=== PATIENT | female | born 1960 | race Caucasian/White ===

== ENCOUNTER → 2017-10-31 11:50 | Outpatient (CLI) | payer OTHER, SELFPAY ==
--- NOTE | 2017-10-31 12:03 | RAD_ITS ---
STUDY: X-RAY - ABDOMEN/PELVIS REASON FOR EXAM: Female, 57 years old. Diarrhea. TECHNIQUE: AP supine and upright views of the abdomen and pelvis. COMPARISON: None. FINDINGS: Normal visualized lung bases. There is an unremarkable bowel gas pattern. There is no demonstrated free abdominal air. There is no obvious organomegaly, mass or dilated bowel. No pathologic calcifications are visualized. There are calcified phleboliths in the pelvis. Normal visualized osseous structures. RAD/Abd Inc Decub and/or Erect IMPRESSION: No radiographic evidence of acute intra-abdominal disease. Electronically Signed: Nusrat Oconnor MD at 8:27 EDT , Service support ,
[2017-10-31 14:26] LABS: Absolute Lymphocyte Count 2.03 X10^3/ul (0.83-4.51); Absolute Neutrophil Count 2.9 X10^3/uL (2.0-7.7); Basophil# 0.02 X10^3/uL; Basophil% 0.4 % (0-1); Eosinophil# 0.07 X10^3/uL; Eosinophils% 1.3 % (0-5); Hematocrit 41.4 % (37-47); Hemoglobin 13.6 g/dl (12.0-15.0); Lymphocyte # 2.03 X10^3/ul (4.0); Lymphocyte % 37.5 % (19-41); Mean Corp Hgb Conc 32.9 g/gl (32-36); Mean Corpuscular Hgb 28.9 pg (27.0-32.0); Mean Corpuscular Volume 88.1 fL (81-99); Mean Platelet Vol. 10.9 fl (6.2-12.0); Monocyte# 0.39 X10^3/uL; Monocyte% 7.2 % (0-10); Neutrophil # 2.88 X10^3/uL (2.7-7.7); Neutrophil % 53.2 % (47-70); POSITIVE COUNT NO; POSITIVE DIFFERENTIAL NO; POSITIVE MORPHOLOGY NO; Platelet Count 258 K/mm3 (150-450); RBC Distribution Width CV 13.8 % (11.6-14.6); RBC Distribution Width SD 44.4 fl (35.1-43.9); White Blood Count 5.4 K/mm3 (4.4-11.0)
[2017-10-31 14:39] LABS: Vitamin D,25 Hydroxy 22.3 ng/mL (29.95-100.01)
[2017-10-31 14:49] LABS: ALB/GLOB Ratio 1.2 RATIO (0.9-2.4); AST(SGOT) 16 U/L (15-37); Alanine Aminotransfer ALT/SGPT 19 U/L (13-56); Albumin, Serum 3.9 g/dL (3.2-5.0); Alkaline Phosphatase 79 U/L (45-117); Anion Gap 6 (5-15); BUN 13 mg/dL (7-18); Calcium,Total 8.5 mg/dL (8.5-10.1); Chloride 109 mmol/L (98-107); Creatinine, Serum 0.81 mg/dL (0.55-1.02); EST Glomerular Filtration Rate 77 mL/min (>60); Est Glom Filt Rate - Afr Amer 93 mL/min (>60); Globulin 3.3 g/dL (2.2-4.2); Glucose 106 mg/dL (74-106); Magnesium 2.3 mg/dL (1.6-2.6); Potassium 3.8 mmol/L (3.5-5.1); Protein, Total 7.2 g/dL (6.4-8.2); Sodium Level 141 mmol/L (136-145); Thyroid Stim Hormone (TSH) 1.09 uIU/mL (0.358-3.74)
== END ==
LOC: MFPLAB 11:52 → MTRAD 11:55
PROVIDERS: Family Provider Family Medicine; PCP Family Medicine; Visit Provider Family Medicine
DX: R19.7 Diarrhea, unspecified (principal); E55.9 Vitamin D deficiency, unspecified
CPT/HCPCS: 36415; 74019; 80053; 82306; 83735; 84443; 85025

== ENCOUNTER → 2017-12-12 11:59 | Outpatient (CLI) | payer OTHER, SELFPAY ==
--- NOTE | 2017-12-12 12:01 | BI_ITS ---
MAMMOGRAPHY - BILATERAL SCREENING REASON FOR EXAM: Female, 57 years old. Routine annual screening examination. PERTINENT HISTORY: Non-contributory. TECHNIQUE: Digital bilateral breast manfred (3D mammographic acquisition) in the CC and MLO projections. 2-D mediolateral oblique (MLO) and craniocaudad (CC) views of both breasts were obtained. CAD: Full Field Digital Mammography with Computer Added Detection was performed. COMPARISON: Comparison is made with prior examination dated July 19, 2015. FINDINGS: Breast Composition: There are scattered areas of fibroglandular density. There are no dominant masses or suspicious calcifications. Stable bilateral benign-appearing axillary lymph nodes. No other significant abnormalities are identified. There has been no significant change since the prior study. BI/SCREENING MAMM (CAD), BILAT IMPRESSION: Stable bilateral screening mammogram. Yearly follow-up mammogram recommended. (A) ASSESSMENT CATEGORY: BIRADS Category 2: Benign. A letter regarding these results will be sent to the patient by the facility within 30 days. Approximately 10% of breast cancers are not detected by mammography. A normal mammogram should not delay biopsy of a clinically suspicious abnormality. [id number] Electronically Signed: Rios Winchester MD at 13:44 EDT Tel [phone], Service support ,
== END ==
PROVIDERS: Family Provider Family Medicine; PCP Family Medicine; Visit Provider Family Medicine
DX: Z12.31 Encounter for screening mammogram for malignant neoplasm of breast (principal)
CPT/HCPCS: 77063; 77067

== ENCOUNTER → 2018-03-02 09:31 | Outpatient (CLI) | payer OTHER, SELFPAY ==
[2018-03-02 12:39] LABS: Absolute Lymphocyte Count 1.89 X10^3/ul (0.83-4.51); Absolute Neutrophil Count 2.5 X10^3/uL (2.0-7.7); Basophil# 0.04 X10^3/uL; Basophil% 0.8 % (0-1); Eosinophil# 0.09 X10^3/uL; Eosinophils% 1.8 % (0-5); Hematocrit 43.6 % (37-47); Hemoglobin 14.1 g/dl (12.0-15.0); Lymphocyte # 1.89 X10^3/ul (4.0); Lymphocyte % 38.8 % (19-41); Mean Corp Hgb Conc 32.3 g/gl (32-36); Mean Corpuscular Hgb 28.7 pg (27.0-32.0); Mean Corpuscular Volume 88.8 fL (81-99); Mean Platelet Vol. 10.7 fl (6.2-12.0); Monocyte# 0.31 X10^3/uL; Monocyte% 6.4 % (0-10); Neutrophil # 2.53 X10^3/uL (2.7-7.7); Platelet Count 242 K/mm3 (150-450); RBC Distribution Width CV 13.8 % (11.6-14.6); RBC Distribution Width SD 44.8 fl (35.1-43.9); Red Blood Count 4.91 M/mm3 (4.2-5.4); White Blood Count 4.9 K/mm3 (4.4-11.0)
[2018-03-02 12:41] LABS: POSITIVE COUNT NO; POSITIVE DIFFERENTIAL NO; POSITIVE MORPHOLOGY NO
[2018-03-02 12:57] LABS: ALB/GLOB Ratio 1.1 RATIO (0.9-2.4); AST(SGOT) 18 U/L (15-37); Alanine Aminotransfer ALT/SGPT 27 U/L (13-56); Albumin, Serum 3.7 g/dL (3.2-5.0); Alkaline Phosphatase 85 U/L (45-117); Anion Gap 12 (5-15); BUN 16 mg/dL (7-18); BUN/Creat Ratio 18.6 RATIO (10-20); Calcium,Total 8.7 mg/dL (8.5-10.1); Chloride 106 mmol/L (98-107); Creatinine, Serum 0.86 mg/dL (0.55-1.02); EST Glomerular Filtration Rate 72 mL/min (>60); Est Glom Filt Rate - Afr Amer 87 mL/min (>60); Globulin 3.4 g/dL (2.2-4.2); Glucose 94 mg/dL (74-106); Potassium 3.8 mmol/L (3.5-5.1); Protein, Total 7.1 g/dL (6.4-8.2); Sodium Level 144 mmol/L (136-145)
[2018-03-02 13:05] LABS: Vitamin D,25 Hydroxy 30.2 ng/mL (29.95-100.01)
== END ==
PROVIDERS: Family Provider Family Medicine; PCP Family Medicine; Visit Provider Family Medicine
DX: E55.9 Vitamin D deficiency, unspecified (principal); K58.9 Irritable bowel syndrome, unspecified
CPT/HCPCS: 36415; 80053; 82306; 85025

== ENCOUNTER 2018-10-19 05:26 | Day surgery (SDC) | payer OTHER, SELFPAY ==
[2018-10-06 13:58] VITALS: BMI 29.8
--- NOTE | 2018-10-12 10:33 | EKG12_ITS ---
Test Reason : PRE-OP Blood Pressure : / mmHG Vent. Rate : 084 BPM Atrial Rate : 084 BPM P-R Int : 148 ms QRS Dur : 090 ms QT Int : 376 ms P-R-T Axes : 054 004 034 degrees QTc Int : 444 ms Normal sinus rhythm Nonspecific ST and T wave abnormality Abnormal ECG Confirmed by CARMEN BLACKWELL, AURELIO ([id number]), editor managing newspaper MILAN GARCIA ([id number]) on 10/13/2018 1:05:23 PM Referred By: Alexander Nam Confirmed By:AURELIO MORALES MD
[2018-10-12 11:12] LABS: Hematocrit 43.8 % (37-47); Hemoglobin 13.8 g/dl (12.0-15.0); Mean Corp Hgb Conc 31.5 g/gl (32-36); Mean Corpuscular Hgb 28.7 pg (27.0-32.0); Mean Corpuscular Volume 91.1 fL (81-99); Mean Platelet Vol. 10.6 fl (6.2-12.0); Platelet Count 258 K/mm3 (150-450); RBC Distribution Width CV 13.7 % (11.6-14.6); RBC Distribution Width SD 45.2 fl (35.1-43.9); Red Blood Count 4.81 M/mm3 (4.2-5.4); White Blood Count 5.9 K/mm3 (4.4-11.0)
[2018-10-12 11:13] LABS: Scan Indicated on CBC? Y/N NO
[2018-10-12 11:34] LABS: Anion Gap 6 (5-15); BUN 14 mg/dL (7-18); BUN/Creat Ratio 16.8 RATIO (10-20); Calcium,Total 8.9 mg/dL (8.5-10.1); Chloride 107 mmol/L (98-107); Creatinine, Serum 0.83 mg/dL (0.55-1.02); EST Glomerular Filtration Rate 75 mL/min (>60); Est Glom Filt Rate - Afr Amer 91 mL/min (>60); Glucose 96 mg/dL (74-106); Potassium 4.1 mmol/L (3.5-5.1); Sodium Level 142 mmol/L (136-145)
[2018-10-19] VITALS (10 sets, daily range): BP systolic 96–110; BP diastolic 52–71; PULSE 70–90; RESP 16–18; TEMP 36.2–37.2; O2SAT 94–97; BMI 29.4
--- NOTE | 2018-10-19 | HEM_PTH ---
PATIENT: CHANEL PRASAD LOC: [facility] [place] U#:[id number] AGE/SX: 58/F ROOM: RE10/19/[address]: Dr. Alexander Nam MD : [id number] BED: DIS: 10/19/2018 SPEC #: [id number] RECD: 10/19/18 10:13 STATUS: HEBER JUAN #: [id number] INA: 10/19/18 00:[address]: Alexander Nam DEPT: SURGICAL PATHOLOGY RECD BY: Dakota Molina ENTERED: 10/19/18 12:55 SP TYPE: HEMORRHOID OTHR DR: Dr. Marito Zavala MD Tissues: HEMORRHOIDS Procedures: Surgery Specimen Level III HEADER OPERATION: Exam under anesthesia, hemorrhoidectomy PRE-OP DIAGNOSIS: Internal bleeding hemorrhoids TISSUE SUBMITTED: Hemorrhoids MICROSCOPIC DIAGNOSIS Hemorrhoids: Pieces of anorectal mucosa with dilated and congested blood vessels consistent with hemorrhoid. See comment. SJ:shayy 10/20/18 COMMENT The specimen predominantly consists of squamous mucosa. MICROSCOPIC DESCRIPTION Slides are reviewed. GROSS DESCRIPTION Received in fixative is one container labeled with the patient's name and designated hemorrhoids. The specimen consists of two irregular fragments of samuel mucosal tissue measuring 2.5 x 1.5 x 1 cm and 2.5 x 1 x 1 cm. Sections reveal congested and hemorrhagic cut surfaces. Mold Design Engineer sections are submitted in two cassettes. / BRADFORD:shayy 10/19/18 TC:5 CPT: 41318
--- NOTE | 2018-10-19 06:57 | PCM.DC.REC ---
Discharge Diet: No Restrictions Discharge Activity: Return to Normal Activity, May Not Drive - while you are taking narcotic pain medications. Do not drive, work with heavy equipment or sign legal documents for 24 hours after your surgery. Additional Activity Instructions:: Do not drive or work with heavy equipment or sign legal documents for 24 hours. Be aware that pain medications may cause nausea. You should typically eat light foods as you take your pain medications. Additional Dressing/Incision Instructions:: Mineral oil 30 cc or 1 ounce daily in juice or food. Daily fiber supplementation 1 tablespoon in with juice or food. You may utilize a sitz bath in a warm tub of soapy water for comfort for 20-30 minutes or for post defecation hygiene Allergies/Adverse Reactions: Allergies azithromycin [From Zithromax Z-Del] Adverse Reaction (Verified 10/12/18 09:22) Vomiting codeine Adverse Reaction (Verified 10/12/18 09:22) Vomiting Sulfa (Sulfonamide Antibiotics) Adverse Reaction (Verified 10/12/18 09:22) Vomiting Medications to take at Discharge cholecalciferol (vitamin D3) 2,000 unit capsule 2,000 unit PO DAILY 10/06/18 levothyroxine 50 mcg capsule 50 mcg PO DAILY 10/06/18 magnesium oxide 400 mg capsule 400 mg PO BID cap 10/06/18 valacyclovir 500 mg tablet 500 mg PO .prn tab 10/06/18 Famotidine [Pepcid] 20 mg PO DAILY 10/12/18 sod phos mono-sod phos dibasic 1.5 gram (1.102-0.398) tablet 4 tab PO Q15M #32 tab 10/13/18 Hydrocodone Bitart/Apap 5-325 [[place] 5MG-325MG] 1 tablet PO Q4H PRN PRN 3 Days #12 tablet 10/19/18 The following prescriptions were given: Hydrocodone Bitart/Apap 5-325 [[place] 5MG-325MG] 1 tablet PO Q4H PRN PRN 3 Days #12 tablet PRN Reason: Pain Primary Care Physician: Marito Zavala MD [Primary Care Provider] - Test Results: Test results from this visit will be discussed in further detail at your follow-up appointment, if applicable. Please Follow Up With: Alexander Nam MD - [phone] When: Plan to have a follow up approximately 3 weeks after surgery.
[2018-10-19] MEDS: Lubricating Jelly 60 GM Tube 30 GM TOPICAL (07:30)
[2018-10-19] MEDS: Dibucaine 30 GM Tube 1 APPLIC (07:41)
[2018-10-19] MEDS: Bupivacaine Mpf 0.5% 30 ML VIAL (08:00)
[2018-10-19] MEDS: BUPIVACAINE LIPOSOME/PF 20 ML VIAL OPERA.SITE (08:00)
--- NOTE | 2018-10-19 08:03 | PCM.OPRPT ---
Problem List (1) Internal bleeding hemorrhoids Status: Acute Report of Operation Date of Procedure: 10/19/18 Pre-Operative Diagnosis: Bleeding internal and external hemorrhoids Post-Operative Diagnosis: Same Surgery/Procedure Performed:: Complex hemorrhoidectomy Description of Surgical Findings:: Timeout and informed consent was obtained. 58-year-old female was taken to the operating room. She was subsequently placed prone on the table. Cefotetan 2 g were given intravenously preoperatively. The perianal area was treated with Skin-Prep and then tape was used to help provide exposure. Was prepped with Betadine. 0.5% Marcaine mixed with Exparel was utilized using a local anesthetic. Throughout the procedure all 50 cc was used. The patient had a large complex of internal and external hemorrhoids right 2 o'clock position with a lesser degree at right 4 o'clock position and reasonable amount of tissue at the left 9 o'clock position. Apical sutures of 2-0 chromic were placed. Harmonic scalpel was used to perform resection of external component in internal component. Mucosa was approximated with a running locking 2-0 chromic. The left lateral side and apical suture of [id number] 0 chromic was used for further achieve hemostasis. Great care was taken to preserve the sphincter mechanism. At the completion of procedure is felt that the great bulk of the hemorrhoidal disease had been resected. Vaseline gauze saturated with dibucaine ointment was placed per rectum. Cover dry gauze applied. Sponge and instrument and needle counts were reported the surgeon be correct. Blood loss minimal. She tolerated the procedure well and was taken to the recovery area in satisfactory condition without apparent complication. Specimen is hemorrhoids. Drains none. Blood loss minimal. Alexander Nam M.D., F.A.C.S. Type of Anesthesia:: Local MAC Anesthesiologist: Maryellen Roach
[2018-10-19] MEDS: HYDROcodone Bitartrate/Apap 5/325 Tablet PO (09:35)
== END 2018-10-19 11:01 | disposition home or self-care (01) ==
LOC: SDC 05:26 → AC 05:27
PROVIDERS: Family Provider Family Medicine; PCP Family Medicine; Referring Provider Surgery; Visit Provider Surgery
PROC: (CPT 46260; principal; 2018-10-19 07:00)
DX: K64.8 Other hemorrhoids (principal); K64.4 Residual hemorrhoidal skin tags; R94.31 Abnormal electrocardiogram [ECG] [EKG]; D68.51 Activated protein C resistance; Z87.891 Personal history of nicotine dependence; Z79.899 Other long term (current) drug therapy
CPT/HCPCS: 00902; 46260; 36415; 80048; 85027; 88304; 93005; J7120; J2405

== ENCOUNTER 2018-11-29 20:44 | Emergency (ER) | payer OTHER, SELFPAY ==
[2018-11-09 12:59] VITALS: BMI 29.4
[2018-11-29 20:45] VITALS: BP 109/98; PULSE 133; RESP 94; TEMP 36.6; O2SAT 95; BMI 26.4
--- NOTE | 2018-11-29 21:24 | EKG12_ITS ---
Test Reason : TACHYCARDIA Blood Pressure : / mmHG Vent. Rate : 109 BPM Atrial Rate : 109 BPM P-R Int : 130 ms QRS Dur : 088 ms QT Int : 340 ms P-R-T Axes : 058 006 027 degrees QTc Int : 457 ms Sinus tachycardia Inferior infarct , age undetermined , cannot be excluded Abnormal ECG Confirmed by DAWN BLACKWELL, VEGA ([id number]), assignment desk editor HORACE BERGER ([id number]) on 12/03/2018 10:01:53 AM Referred By: Ramón Linares Confirmed By:VEGA SEYMOUR MD
[2018-11-29] MEDS: 0.9% Normal Saline 1,000 ML 999 ML IV (21:30)
--- NOTE | 2018-11-29 21:36 | ED.DCSUM_ITS ---
- ER Visit Summary Date of Service: 11/29/18 Chief Complaint: Abdominal pain, diarrhea History of Present Illness: The patient is a 58 F he has been having abdominal pain and diarrhea for the past month. She had a hemorrhoidectomy done on October 19. She was placed on antibiotics after her surgery. Ever since that she has had diarrhea every time she eats. She states that she has lost 20 pounds since then. She feels fatigued. She saw Dr. Nam for this surgery. She states that she has talked with his office and they told her to increase her fluid hydration at home. She has a history of MS but no other medical problems. Her pain is crampy and in the lower part of her abdomen. Physical Examination: Vital signs reviewed. HEENT exam unremarkable. Heart is tachycardic and regular rhythm without murmurs. Lungs are clear to auscultation. Abdomen is soft and nontender. Extremities reveal no edema. Skin exam normal. Neurologic exam normal. Test Results: White blood cell count normal. Potassium 3.4, glucose 122. Alkaline phosphatase 128. Lipase normal. Stool studies are pending Emergency Department Course and Treatment: The patient was given normal saline and feels improved. She did give us a stool sample in the emergency department. We will hold off on any C. difficile treatment until this comes back. At this point I do not feel she requires admission as she has no acute kidney injury. S he may have been a little bit dehydrated but I feel she can tolerate oral meds at home. I will give her Bentyl and Lomotil for home. She will call for her results tomorrow afternoon Treatment Plan: [] Disposition: Discharge Impression: Diarrhea This note was generated with [employer] dictation software. It may contain incorrect words, spelling, and punctuation that were not noted in review of the chart prior to signing ED Disposition - Plan for ED Patient: Referrals: Marito Zavala MD [Primary Care Provider] -
[2018-11-29 21:38] LABS: Absolute Lymphocyte Count 1.87 X10^3/ul (0.83-4.51); Absolute Neutrophil Count 5.9 X10^3/uL (2.0-7.7); Basophil# 0.05 X10^3/uL; Basophil% 0.5 % (0-1); Eosinophil# 0.38 X10^3/uL; Hematocrit 36.8 % (37-47); Hemoglobin 12.2 g/dl (12.0-15.0); Lymphocyte # 1.87 X10^3/ul (4.0); Lymphocyte % 19.8 % (19-41); Mean Corp Hgb Conc 33.2 g/gl (32-36); Mean Corpuscular Hgb 28.1 pg (27.0-32.0); Mean Corpuscular Volume 84.8 fL (81-99); Mean Platelet Vol. 9.3 fl (6.2-12.0); Monocyte% 12.7 % (0-10); Neutrophil # 5.88 X10^3/uL (2.7-7.7); Neutrophil % 62.5 % (47-70); Platelet Count 352 K/mm3 (150-450); RBC Distribution Width SD 40.6 fl (35.1-43.9); Red Blood Count 4.34 M/mm3 (4.2-5.4); White Blood Count 9.4 K/mm3 (4.4-11.0)
[2018-11-29 21:41] LABS: POSITIVE COUNT NO; POSITIVE DIFFERENTIAL NO; POSITIVE MORPHOLOGY NO
[2018-11-29 21:53] LABS: ALB/GLOB Ratio 0.7 RATIO (0.9-2.4); AST(SGOT) 12 U/L (15-37); Alanine Aminotransfer ALT/SGPT 17 U/L (13-56); Albumin, Serum 2.9 g/dL (3.2-5.0); Alkaline Phosphatase 128 U/L (45-117); Anion Gap 9 (5-15); BUN 17 mg/dL (7-18); BUN/Creat Ratio 24.4 RATIO (10-20); Calcium,Total 8.7 mg/dL (8.5-10.1); Chloride 103 mmol/L (98-107); EST Glomerular Filtration Rate 92 mL/min (>60); Est Glom Filt Rate - Afr Amer 111 mL/min (>60); Estimated Creatinine Clearance 76.57 ml/min; Globulin 4.1 g/dL (2.2-4.2); Glucose 122 mg/dL (74-106); Lipase 50 U/L (73-393); Potassium 3.4 mmol/L (3.5-5.1); Sodium Level 137 mmol/L (136-145)
--- NOTE | 2018-11-29 22:22 | ED.DEP ---
ED Disposition - Plan for ED Patient: Disposition: Home or Assisted Living Instructions: ED Diet Vomiting Diarrhea Prescriptions: Dicyclomine HCl [Bentyl] 20 mg PO TIDAC #20 cap Diphenoxylate HCl/Atropine [Lomotil 2.5-0.025 mg Tablet] 1 ea PO TID #20 tab Vits A and D/White Pet/Lanolin [Vitamin A and D Ointment] 425 gm TP TID #1 oint...g. Referrals: Marito Zavala MD [Primary Care Provider] -
[2018-11-29] MEDS: Diphenoxylate/Atrop 1 Tablet PO (22:41)
[2018-11-29 22:54] VITALS: PULSE 102; RESP 18; O2SAT 98
== END 2018-11-29 22:54 | disposition home or self-care (01) ==
PROVIDERS: Emergency Provider Emergency Medicine; Family Provider Family Medicine; PCP Family Medicine
DX: R19.7 Diarrhea, unspecified (principal); R10.31 Right lower quadrant pain; R10.32 Left lower quadrant pain; R53.83 Other fatigue; R11.0 Nausea; G35 Multiple sclerosis; Z87.19 Personal history of other diseases of the digestive system
CPT/HCPCS: 80053; 83690; 85025; 87493; 87506; 93005; 96360; 99284; J7030

== ENCOUNTER 2018-11-30 17:01 | Inpatient (IN) | payer OTHER, SELFPAY ==
[2018-11-29 20:45] VITALS: BMI 26.4
[2018-11-30 17:03] VITALS: BP 113/86; PULSE 131; RESP 18; TEMP 36.9; O2SAT 99; BMI 25.4
[2018-11-30 17:52] VITALS: BMI 26.4
--- NOTE | 2018-11-30 18:53 | CT_ITS ---
STUDY: CT ABDOMEN AND PELVIS WITH CONTRAST REASON FOR EXAM: Female, 58 years old. Abdominal pain RADIATION DOSAGE (If Supplied By Facility): DLP = ( 738.71 ) mGycm TECHNIQUE: Transaxial images were obtained from the dome of the diaphragm to the symphysis pubis without oral contrast. 100 ml of Isovue 300 contrast was administered. Sagittal and coronal images were reconstructed. Individualized dose optimization techniques were used for this CT. COMPARISON: None. FINDINGS: The visualized lung bases are clear. The visualized portions of the heart and pericardium are within normal limits. There are no calcified gallstones present. The liver is within normal limits. There are no suspicious hepatic lesions. The spleen is normal in size. The pancreas is within normal limits. The adrenal glands are within normal limits. There are no obstructing renal stones. There is no hydronephrosis. There are no focal renal lesions. Normal visualized stomach. There is [id number] diffuse colonic wall thickening. There are mild adjacent infiltrative changes of the fat. Colonic diverticulosis is present. The aorta is normal in caliber. There is no abdominal or pelvic free air, free fluid, fluid collection or lymphadenopathy. There are no destructive osseous lesions. CT/Abdomen/Pelvis WITH Contrast IMPRESSION: Colitis with features described above. No evidence of bowel obstruction. Electronically Signed: Luis Betancur, at 20:30 EDT Tel , Service support ,
[2018-11-30 18:54] LABS: Absolute Lymphocyte Count 1.73 X10^3/ul (0.83-4.51); Basophil# 0.03 X10^3/uL; Basophil% 0.2 % (0-1); Color, Urine Amber (Yellow); Eosinophil# 0.06 X10^3/uL; Eosinophils% 0.5 % (0-5); Glucose, Dipstick Normal (Normal); Hematocrit 38.7 % (37-47); Leukocyte Esterase-Dipstick 500 /ul (Negative); Lymphocyte # 1.73 X10^3/ul (4.0); Mean Corp Hgb Conc 33.6 g/gl (32-36); Mean Corpuscular Hgb 28.5 pg (27.0-32.0); Mean Corpuscular Volume 84.9 fL (81-99); Mean Platelet Vol. 9.8 fl (6.2-12.0); Monocyte# 1.49 X10^3/uL; Monocyte% 11.2 % (0-10); Neutrophil # 9.95 X10^3/uL (2.7-7.7); Neutrophil % 74.6 % (47-70); Nitrite-Dipstick Negative (Negative); Occult Blood-Urine 10 /ul (Negative); POSITIVE COUNT NO; POSITIVE DIFFERENTIAL NO; POSITIVE MORPHOLOGY NO; Platelet Count 424 K/mm3 (150-450); Protein-Dipstick 30 mg/dl (Negative); RBC Distribution Width CV 13.3 % (11.6-14.6); RBC Distribution Width SD 41.3 fl (35.1-43.9); Red Blood Count 4.56 M/mm3 (4.2-5.4); Specific Gravity, Urine 1.025 (1.002-1.030); Urine Clarity Sl. Cloudy (Clear); Urine Urobilinogen 1 mg/dl (Normal); White Blood Count 13.3 K/mm3 (4.4-11.0)
--- NOTE | 2018-11-30 18:54 | ED.RN ---
notified of Dr. Ever hall [id number]
[2018-11-30 18:55] LABS: Ketone-Dipstick 150 mg/dl (Negative); Urine Bilirubin Dipstick 1 mg/dL (Negative)
--- NOTE | 2018-11-30 18:55 | ED.VISSUMM ---
- ER Visit Summary Date of Service: 11/30/18 Chief Complaint: Diarrhea History of Present Illness: The patient is a 58 F who presents for diarrhea since October 19 when she had a hemorrhoid surgery. Patient states she is lost 20 pounds since the surgery. She feels dehydrated today, and yesterday began having severe nausea and has vomited a few times. She has abdominal tenderness in the lower abdomen. She was seen last night for the same issues and was given fluids and oral medications with discharge home. Today she followed up with her doctor and was sent in for further work-up due to the concern for continued symptoms and the weight loss. Patient has history of multiple sclerosis but is currently not on any medications and has no symptoms of it. Physical Examination: Vital signs: afebrile, hemodynamically stable, no hypoxia on room air General: well nourished, well developed, in no distress Skin: warm, dry, no rash, no pallor HEENT: normocephalic and atraumatic; PERRL, EOMI, moist mucous membranes Cardiovascular: Tachycardic rate and rhythm without murmurs, no peripheral edema, 2+ pulses all distal extremities Respiratory: No increased work of breathing, lungs are clear to auscultation bilaterally, no rales, rhonchi or wheezing Abdominal: Abdomen is soft, tenderness in the lower abdomen with normoactive bowel sounds, no guarding or rebound, no masses MSK: Moves all extremities, no deformities, normal strength Neuro: Awake and alert, oriented ?4. No facial droop, sensation and motor function intact and symmetric Test Results: Abnormal Lab Results 11/30/18 11/30/18 11/30/18 18:28 18:28 18:28 WBC 13.3 H RBC 4.56 Hgb 13.0 Hct 38.7 MCV 84.9 MCH 28.5 MCHC 33.6 RDW 13.3 RDW Differential 41.3 Plt Count 424 MPV 9.8 Immature Gran % (Auto) 0.500 Neut % (Auto) 74.6 H Lymph % (Auto) 13.0 L [place] % (Auto) 11.2 H Eos % (Auto) 0.5 Baso % (Auto) 0.2 Absolute Neuts (auto) 10.0 H Absolute Lymphs (auto) 1.73 Total Counted Not Reportable Sodium 138 Potassium 3.8 Chloride 105 Carbon Dioxide 23.0 Anion Gap 10 BUN 19 H Creatinine 0.85 Estim Creat Clear Calc 65.71 Est GFR (MDRD) Af Amer 88 Est GFR (MDRD) Non-Af 73 BUN/Creatinine Ratio 22.4 H Glucose 129 H Lactic Acid Calcium 9.1 Total Bilirubin Direct Bilirubin AST ALT Alkaline Phosphatase Total Protein Albumin Globulin Urine Color Anu Urine Clarity Sl. Cloudy Urine pH 6.0 Ur Specific [place] 1.025 Urine Protein 30 H Urine Glucose (UA) Normal Urine Ketones 150 H Urine Occult Blood 10 H Urine Nitrite Negative Urine Bilirubin 1 H Urine Urobilinogen 1 H Ur Leukocyte Esterase 500 H Urine RBC 0-5 SEEN Urine WBC 10-25 SEEN Ur Squamous Epith Cells 10-25 SEEN Ur Transition Epith Cell 0-5 SEEN Ur Renal Epithelial Cell 0-5 SEEN Urine Bacteria 2+ Urine Mucus 2+ 11/30/18 11/30/18 18:28 19:27 WBC RBC Hgb Hct MCV MCH MCHC RDW RDW Differential Plt Count MPV Immature Gran % (Auto) Neut % (Auto) Lymph % (Auto) [place]oul[place] % (Auto) Eos % (Auto) Baso % (Auto) Absolute Neuts (auto) Absolute Lymphs (auto) Total Counted Sodium Potassium Chloride Carbon Dioxide Anion Gap BUN Creatinine Estim Creat Clear Calc Est GFR (MDRD) Af Amer Est GFR (MDRD) Non-Af BUN/Creatinine Ratio Glucose Lactic Acid 1.2 Calcium Total Bilirubin 1.00 Direct Bilirubin 0.17 AST 15 ALT 17 Alkaline Phosphatase 130 H Total Protein 7.7 Albumin 3.1 L Globulin 4.6 H Urine Color Urine Clarity Urine pH Ur Specific [place] Urine Protein Urine Glucose (UA) Urine Ketones Urine Occult Blood Urine Nitrite Urine Bilirubin Urine Urobilinogen Ur Leukocyte Esterase Urine RBC Urine WBC Ur Squamous Epith Cells Ur Transition Epith Cell Ur Renal Epithelial Cell Urine Bacteria Urine Mucus Clinical Impression(s) from Imaging Studies Abdomen/Pelvis CT 11/30/18 18:53 IMPRESSION: Colitis with features described above. No evidence of bowel obstruction. Electronically Signed: Luis Betancur, at 20:30 EDT Tel , Service support , Medications Given Discontinued Medications Sodium Chloride () 1,000 mls @ 1,000 mls/hr IV .Q1H ONE Stop: 11/30/18 19:52 Last Admin: 11/30/18 19:08 Dose: 1,000 mls/hr Ketorolac Tromethamine (Toradol) 15 mg IV X1 ONE Stop: 11/30/18 18:54 Last Admin: 11/30/18 19:08 Dose: 15 mg Metoclopramide HCl (Reglan) 10 mg IV X1 ONE Stop: 11/30/18 21:26 Last Admin: 11/30/18 21:29 Dose: 10 mg Ondansetron HCl (Zofran) 4 mg IV X1 ONE Stop: 11/30/18 18:54 Last Admin: 11/30/18 19:08 Dose: 4 mg Emergency Department Course and Treatment: Patient was given IV fluids for hydration and Zofran and Toradol for symptomatic relief. Because this is patient's second visit in 24 hours for the same complaint, a CT of the abdomen pelvis was performed this time. Labs showed a mild leukocytosis of 13.3, and patient has been vomiting, thus this may be secondary to D marginalization. CMP and lipase were within normal limits. Lactate was 1.2. CT of the abdomen and pelvis showed a diffuse colitis. Patient had stool studies performed at her visit last night, with a negative enteric pathogen work-up, including negative C. difficile. Thus at this time I do not suspect the patient's colitis is infectious in nature and she will not be started on antibiotics. She does continue to have nausea and has required 2 doses of IV medication. Pain was controlled with Toradol. Patient's heart rate improved to the low 100s after IV fluids, however she continues to be tachycardic, with increased heart rate with minor movement, thus she would benefit from admission for further IV fluids for hydration, treatment of her intractable nausea, and further work-up of her diffuse colitis and ongoing issues with diarrhea and nausea. Treatment Plan: [] Disposition: [] Impression: Diffuse colitis, intractable nausea, dehydration This note was generated with [employer] dictation software. It may contain incorrect words, spelling, and punctuation that were not noted in review of the chart prior to signing ED Disposition - Plan for ED Patient: Disposition: [facility]
[2018-11-30 18:58] LABS: Anion Gap 10 (5-15); BUN 19 mg/dL (7-18); BUN/Creat Ratio 22.4 RATIO (10-20); Calcium,Total 9.1 mg/dL (8.5-10.1); Chloride 105 mmol/L (98-107); Creatinine, Serum 0.85 mg/dL (0.55-1.02); EST Glomerular Filtration Rate 73 mL/min (>60); Est Glom Filt Rate - Afr Amer 88 mL/min (>60); Estimated Creatinine Clearance 65.71 ml/min; Glucose 129 mg/dL (74-106); Mucous, Urine 2+ /hpf (<or=2+); Potassium 3.8 mmol/L (3.5-5.1); Sodium Level 138 mmol/L (136-145)
[2018-11-30 18:59] LABS: Squamous Epithelial Cells - UA 10-25 SEEN /hpf (5-10); White Blood Cells 10-25 SEEN /hpf (0-5)
[2018-11-30 19:00] LABS: Bacteria 2+ /hpf (None Seen); Red Blood Cells-Urine 0-5 SEEN /hpf (0-5); Renal Epithelial Cells 0-5 SEEN /hpf (0-5); Transitional Epithelial - Ur 0-5 SEEN /hpf (0-5)
[2018-11-30] MEDS: Ondansetron 4 MG/2 ML Vial IV (19:08)
[2018-11-30] MEDS: 0.9% Normal Saline 1,000 ML 1000 ML IV (19:08)
[2018-11-30] MEDS: Ketorolac 30 MG/ML Syringe 15 MG IV (19:08)
[2018-11-30 19:13] VITALS: BP 122/47; PULSE 114; RESP 18; TEMP 36.9; O2SAT 94
[2018-11-30 19:16] VITALS: BP 111/67; PULSE 114; RESP 18; O2SAT 96
[2018-11-30 19:16] LABS: AST(SGOT) 15 U/L (15-37); Alanine Aminotransfer ALT/SGPT 17 U/L (13-56); Albumin, Serum 3.1 g/dL (3.2-5.0); Alkaline Phosphatase 130 U/L (45-117); Bilirubin, Direct 0.17 mg/dL (0.00-0.30); Globulin 4.6 g/dL (2.2-4.2); Protein, Total 7.7 g/dL (6.4-8.2)
--- NOTE | 2018-11-30 19:22 | ED.RN ---
DR. JAVIER DOES NOT WANT TO ORDER AND ANTIBIOTIC THIS TIME FOR SEPSIS ALERT. LACTIC AND BLOOD CULTURES ORDERED PER VERBAL ORDER.
[2018-11-30 20:15] LABS: Lactic Acid 1.2 mmol/L (0.4-2.0)
[2018-11-30] MEDS: Metoclopramide 10 MG/2 ML Vial IV (21:29)
[2018-11-30 21:31] VITALS: BP 108/51; PULSE 108; RESP 18; TEMP 36.7; O2SAT 95; O2SAT 96
--- NOTE | 2018-11-30 22:26 | PCM.HP.STD ---
Problem List (1) Colitis Status: Acute History of Present Illness Date of Admission: 11/30/18 Chief Complaint: diarrhea, nausea and vomiting The patient is a 58 year old F with a significant history of multiple sclerosis and hypothyroidism who presented to the emergency department because of a 5-week history of diarrhea. Patient reported that she had hemorrhoidectomy by , General Surgeon after which her symptoms of diarrhea started. Also she has had nausea and vomiting intermittently during the same time span of diarrhea. Reportedly she has lost about 20 pounds. Although she has mild abdominal crampy pain. On 11/29/2018 C. difficile tests and enteric pathogen panel return unremarkable. Abdominal CT is remarkable for colitis. Past Medical History Medical History: Medical History (Last Reviewed 12/01/18 @ 04:37 by Ramón Linraes MD) Internal bleeding hemorrhoids (Acute) K64.8 Back problem M53.9 Factor 5 Leiden mutation, heterozygous D68.51 Hemorrhoids K64.9 Rectal bleed K62.5 Allergies azithromycin [From Zithromax Z-Del] Adverse Reaction (Verified 11/30/18 17:02) Vomiting codeine Adverse Reaction (Verified 11/30/18 17:02) Vomiting Sulfa (Sulfonamide Antibiotics) Adverse Reaction (Verified 11/30/18 17:02) Vomiting PROBIOTICS Allergy (Uncoded 11/30/18 17:02) Other BOILS Home Medications: Ambulatory Orders Medication Instructions Recorded Dicyclomine HCl [Bentyl] 20 mg PO TIDAC 11/30/18 Diphenoxylate HCl/Atropine 1 tab PO TID 11/30/18 [Lomotil 2.5-0.025 mg Tablet] Levothyroxine [Synthroid] 50 mcg PO DAILY 11/30/18 Naproxen Sodium [Aleve] 440 mg PO PRN PRN 11/30/18 Vits A and D/White Pet/Lanolin 1 applic TP TID 11/30/18 [Vitamin A and D Ointment] Surgical History: Surgical History (Last Reviewed 12/01/18 @ 04:37 by Ramón Linares MD) History of appendectomy Z90.49 History of colonoscopy Onset Date: ~2016 Z98.890 History of hemorrhoidectomy Onset Date: ~10/2018 Z98.890 History of hysterectomy Z90.710 History of oophorectomy Lives: Alone Smoking Status: Never smoker Alcohol: None - *Family History Maternal Family History: Family History (Last Reviewed 12/01/18 @ 04:37 by Ramón Linares MD) Grandmother CVA (cerebral vascular accident) Review of Systems Constitutional: Denies: Chills, Fever, Weight Change HEENT: Denies: Head Aches, Sinus Congestion, Sinus Drainage Cardiovascular: Denies: Chest Pain, Palpitations Respiratory: Denies: Cough, Shortness of breath at rest, Sputum production Gastrointestinal: Reports: Diarrhea, Nausea, Vomiting. Denies: Abdominal Pain Genitourinary: Denies: Dysuria Musculoskeletal: Denies: Joint Pain, Joint Tenderness Skin: Denies: Rash, Wounds Neurological: Denies: Numbness, Tingling, Focal weakness Psychiatric: Denies: Anxiety, Depression, Homicidal Ideations, Suicidal Ideations Hematologic/ Lymphatic: Denies: Easy Bruising, Easy Bleeding VTE Information - Inpt Only VTE Present on Admission: No VTE Mechan Device Prophylaxis: None VTE Pharm Prophylaxis ordered?: Yes Patient Problems: Active and Suspected Problems (Last Reviewed 12/01/18 @ 01:58 by Ramón Linares MD) Colitis (Acute) - Physical Exam General: Alert, Oriented x3, Cooperative HEENT: Atraumatic, PERRLA, EOMI, Normocephalic Neck: Supple, No JVD, Negative Carotid Bruits Lungs: Clear to auscultation, Normal air movement Cardiovascular: Regular rate, No murmurs Abdomen: Bowel Sounds Present, Soft, Tender Extremities: No edema, Capillary Refill Less than 3 Seconds Skin: No rashes, No breakdown Musculoskeletal: No Tenderness to Palpation of Joints or Extremities Neurological: Cranial nerves II-XII grossly intact, Neuro grossly intact Psych/Mental Status: Normal Affect, Appropriate Vital Signs Temp Pulse Resp BP Pulse Ox 98.0 F 108 H 18 108/51 L 96 11/30/18 21:31 11/30/18 21:31 11/30/18 21:31 11/30/18 21:31 11/30/18 21:31 Oxygen Delivery Method Room Air Weight: 69.4 kg Body Mass Index (BMI) 25.4 Laboratory Tests Past 24 Hrs 11/30/18 11/30/18 11/30/18 18:28 18:28 18:28 WBC 13.3 H RBC 4.56 Hgb 13.0 Hct 38.7 MCV 84.9 MCH 28.5 MCHC 33.6 RDW 13.3 RDW Differential 41.3 Plt Count 424 MPV 9.8 Immature Gran % (Auto) 0.500 Neut % (Auto) 74.6 H Lymph % (Auto) 13.0 L [place] % (Auto) 11.2 H Eos % (Auto) 0.5 Baso % (Auto) 0.2 Absolute Neuts (auto) 10.0 H Absolute Lymphs (auto) 1.73 Total Counted Not Reportable Sodium 138 Potassium 3.8 Chloride 105 Carbon Dioxide 23.0 Anion Gap 10 BUN 19 H Creatinine 0.85 Estim Creat Clear Calc 65.71 Est GFR (MDRD) Af Amer 88 Est GFR (MDRD) Non-Af 73 BUN/Creatinine Ratio 22.4 H Glucose 129 H Lactic Acid Calcium 9.1 Total Bilirubin Direct Bilirubin AST ALT Alkaline Phosphatase Total Protein Albumin Globulin Urine Color Anu Urine Clarity Sl. Cloudy Urine pH 6.0 Ur Specific [place] 1.025 Urine Protein 30 H Urine Glucose (UA) Normal Urine Ketones 150 H Urine Occult Blood 10 H Urine Nitrite Negative Urine Bilirubin 1 H Urine Urobilinogen 1 H Ur Leukocyte Esterase 500 H Urine RBC 0-5 SEEN Urine WBC 10-25 SEEN Ur Squamous Epith Cells 10-25 SEEN Ur Transition Epith Cell 0-5 SEEN Ur Renal Epithelial Cell 0-5 SEEN Urine Bacteria 2+ Urine Mucus 2+ 11/30/18 11/30/18 18:28 19:27 WBC RBC Hgb Hct MCV MCH MCHC RDW RDW Differential Plt Count MPV Immature Gran % (Auto) Neut % (Auto) Lymph % (Auto) [place] % (Auto) Eos % (Auto) Baso % (Auto) Absolute Neuts (auto) Absolute Lymphs (auto) Total Counted Sodium Potassium Chloride Carbon Dioxide Anion Gap BUN Creatinine Estim Creat Clear Calc Est GFR (MDRD) Af Amer Est GFR (MDRD) Non-Af BUN/Creatinine Ratio Glucose Lactic Acid 1.2 Calcium Total Bilirubin 1.00 Direct Bilirubin 0.17 AST 15 ALT 17 Alkaline Phosphatase 130 H Total Protein 7.7 Albumin 3.1 L Globulin 4.6 H Urine Color Urine Clarity Urine pH Ur Specific [place] Urine Protein Urine Glucose (UA) Urine Ketones Urine Occult Blood Urine Nitrite Urine Bilirubin Urine Urobilinogen Ur Leukocyte Esterase Urine RBC Urine WBC Ur Squamous Epith Cells Ur Transition Epith Cell Ur Renal Epithelial Cell Urine Bacteria Urine Mucus Assessment/Plan All Active Problems (Last Reviewed 12/01/18 @ 01:58 by Ramón Linares MD) Colitis (Acute) Internal bleeding hemorrhoids (Acute) The patient is a 58 year old F with a significant history of multiple sclerosis and hypothyroidism who presented to the emergency department because of a 5-week history of diarrhea; intermittent nausea and vomiting; weight loss but with negative C. difficile test and negative enteric pathogen panel who was found to have colitis on abdominal CT. Colitis Differential include inflammatory colitis; microscopic colitis; small bowel bacterial overgrowth or other. Supportive treatment with lactated Ringer's and as needed IV Zofran Clear liquid diet. Because of warning sign of weight loss; and age will consult general surgery for consideration for colonoscopy. Of note patient last colonoscopy was in 2018. Home Bentyl continued Home Lomotil continued Home PRN naproxen continued Hypothyroidism Synthroid continued DVT prophylaxis Subcutaneous Lovenox ordered. Code Visit OBSV E&M: 71958 Initial observation care L3
[2018-11-30 23:36] VITALS: BMI 27.3; BMI 27.4
[2018-12-01] VITALS (15 sets, daily range): BP systolic 111–130; BP diastolic 55–82; PULSE 96–141; RESP 16–18; TEMP 36.8–37.3; O2SAT 93–97
[2018-12-01] MEDS: Lactated Ringers 1,000 ML 100 ML IV ×3 (01:16→22:14)
[2018-12-01] MEDS: Vitamins A and D Ointment 1 APPLIC TOPICAL ×3 (05:05→21:06)
[2018-12-01] MEDS: Levothyroxine 50 MCG Tablet PO (05:06)
[2018-12-01] MEDS: Diphenoxylate/Atrop 1 Tablet PO ×3 (05:11→22:14)
--- NOTE | 2018-12-01 05:13 | PCM.HP.BLA ---
Problem List (1) Diarrhea Status: Acute Qualifiers: Diarrhea type: unspecified type Qualified Code(s): R19.7 - Diarrhea, unspecified (2) Nausea Status: Acute History and Physical Date of Admission: 12/01/18 MR#: [id number] Acct: [id number] Name: CHANEL PRASAD Rep #: [id number] : 1960 Provider: Alexander Nam MD Age/Sex: 58/F Location: [facility] Status: Signed Intake Intake Visit Reasons: diarrhea Chief Complaint: recheck hemorrhoidectomy Allergies azithromycin [From Zithromax Z-Del] Adverse Reaction (Verified 11/30/18 17:02) Vomiting codeine Adverse Reaction (Verified 11/30/18 17:02) Vomiting Sulfa (Sulfonamide Antibiotics) Adverse Reaction (Verified 11/30/18 17:02) Vomiting PROBIOTICS Allergy (Uncoded 11/30/18 17:02) Other Medications levothyroxine 50 mcg capsule 50 mcg PO DAILY 10/06/18 [History Confirmed 11/30/18] Dicyclomine HCl [Bentyl] 20 mg PO TIDAC #20 cap 11/29/18 [Rx Confirmed 11/30/18] Diphenoxylate HCl/Atropine [Lomotil 2.5-0.025 mg Tablet] 1 ea PO TID #20 tab 11/29/18 [Rx Confirmed 11/30/18] Vits A and D/White Pet/Lanolin [Vitamin A and D Ointment] 425 gm TP TID #1 oint...g. 11/29/18 [Rx Confirmed 11/30/18] PFSH Medical History Internal bleeding hemorrhoids (Acute) Back problem (Acute) Factor 5 Leiden mutation, heterozygous (Acute) Hemorrhoids (Acute) Rectal bleed (Acute) Surgical History History of appendectomy (Acute) History of colonoscopy (Acute ~2016) History of hemorrhoidectomy (Acute ~10/2018) History of hysterectomy (Acute) History of oophorectomy (Acute) Family History Grandmother CVA (cerebral vascular accident) Social History Smoking Status: Never smoker alcohol intake: never substance use type: does not use HPI HPI HPI: CHANEL PRASAD is a 58 F who presents to the office today for ongoing surgical care. My previous notes from October 06, 2018 reflect the following: CHANEL PRASAD, is a 58 F who presents to the office today for surgical consultation and care regarding rectal bleeding and hemorrhoids. November 06, 1989 she had a colonoscopy by Dr. Conte and had a sessile adenomatous polyp of the rectum. 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 She underwent a transanal wedge resection of this. No further malignancy identified. She continued to do well from that standpoint. Most recently March 12, 2017 she had a colonoscopy done by . A 4 mm polyp was seen in the rectum and was removed with cold forceps. Internal hemorrhoids were banded at that time. The patient states that prior to that colonoscopy she had 3 additional outpatient visits for hemorrhoidal banding. The rectal polyp was an inflammatory polyp at that time. The patient presents now because of recurrent rectal bleeding. It has been going on now for 2-3 weeks. She states that she does not utilize a daily fiber supplement. She does not have significant pain with defecation. On that date she complained of rectal bleeding and on examination she was found to have exuberant internal hemorrhoids. Subsequently on October 19, 2018 she underwent an examination under anesthesia and a complex surgical hemorrhoidectomy. Cefotetan was given his intravenous antibiotic. She was discharged on metronidazole. On her previous postop visits my documentation suggests that she was making good progress. We received a phone call today stating that the patient has been seen in the emergency room last night because of food intolerance nausea vomiting abdominal pain profuse diarrhea. The patient states that previously when she was that she had to receive injections every 3 days because of severe nausea. She placed herself on a brat diet. She has had a 20 pound weight loss since the time of surgery. By report from the emergency room she was felt to be dehydrated. She was given 1 L of fluid discharge and was told to follow-up with your primary care physician Dr. Marito Zavala. We were notified that the patient had a heart rate of 150 and at this the patient to present to the office for evaluation. The patient continues to complain that she simply feels that she is dehydrated. However she states that this problem has been ongoing ever since October 19. She states that she developed a Kelsey yeast infection after her surgery which also required treatment. She states that has since resolved. She denies fever or chills or sweats. 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 Not completely resolved Assessment & Plan Plan Her symptoms of nausea epigastric pain food intolerance anorexia diarrhea do not seem to correlate well with a surgical hemorrhoidectomy. She was checked and noted to be C. difficile negative. She does appear to be tachycardic and dehydrated. The etiology to all of the symptoms seems unclear. Certainly it would appear that she likely has a chronic hypersensitivity to medications or interventions. Sounds like she required incredibly aggressive treatment to get her through her . I am not anticipating any acute surgery adverse event from her procedure. I do believe that she needs to be hospitalized and hydrated. Pending her progress with that then would consider offering an upper endoscopy for biopsy and colonoscopy for random biopsies looking for potential source of the absolute anorexia food fear weight loss and diarrhea. She has had an opportunity to ask and have questions answered. She is willing to read presented to the emergency room for urgent hydration and hopefully hospitalization under the medical service. We can then provide surgical back-up as needed. CC: Dr. Marito Nam M.D., F.A.C.S. Coding Level of Care Code Off vis,est,level 3 Time Spent (min) 30 Comment symptoms not correlating with post op complication 11/30/18 1235 <Electronically signed by Alexander Nam MD> Date Alexander Nam MD This patient was seen and evaluated yesterday in the office. She was referred to the emergency room because of concern of dehydration and tachycardia. As noted above I had already discussed with the patient consideration for combined esophagogastroduodenoscopy with possible biopsy biopsy or polypectomy is indicated. I was concerned however that she appeared so dehydrated yesterday that she would not well tolerate a bowel prep. I have personally reviewed her CT scan which demonstrates images that are quite interest. There appears to be diffuse thickening throughout the entire colon. As noted several times her C. difficile was reported to be negative. Her abdominal exam was unremarkable with a benign abdominal exam clinically. This morning the patient was revisited. She states that she still is feeling jittery. She has had some slight amount of blood in her stool and some solid stool. She claims that she has been able to void. At this point I recommend ongoing resuscitation. Would consider placing her through a bowel prep on Friday with plans for upper and lower endoscopy on morning. She has had an opportunity to ask and have questions answered. We will see how she continues to recover today to see if she would be appropriate for bowel preparation. I appreciate the ongoing opportunity of assisting with her surgical care. She is aware that the hemorrhoid pathology demonstrated simply that did not demonstrate any other primary colonic pathology at that time. That surgery was all the way back on October 19, 2018. I have a lower degree of suspicion that this current inflammation of the colon with aggravated recent symptoms is related. We will however continue to pursue assistance with diagnosis. Alexander Nam M.D., F.A.C.S.
[2018-12-01] MEDS: Dicyclomine 10 MG Capsule 20 MG PO ×3 (07:03→15:24)
[2018-12-01] MEDS: Ondansetron 4 MG/2 ML Vial IV ×2 (08:02→14:29)
[2018-12-01] MEDS: 0.9% NaCl Peripheral Flush Adult/Peds IV ×4 (08:02→18:04)
[2018-12-01] MEDS: Enoxaparin 40 MG/0.4 ML Syringe SC (08:59)
[2018-12-01] MEDS: Ensure Clear 120 ML Liquid PO (08:59)
--- NOTE | 2018-12-01 10:07 | PN.SURG_ITS ---
Patient Problems: Active and Suspected Problems (Last Reviewed 12/01/18 @ 04:37 by Ramón Linares MD) Colitis (Acute) Diarrhea (Acute) Nausea (Acute) Subjective: Patient evaluated resting comfortably in bed. She notes feeling slightly improved. She notes the diarrhea has slowed down this morning. She denies nausea, vomiting. She notes feeling weak. She notes abdominal cramping is improving. She continues to note blood in her stool. - Physical Exam General: Alert, Oriented x3, Cooperative Abdomen: Soft, Non Tender, Hypoactive Bowel Sounds, Distended - slightly Vital Signs Temp Pulse Resp BP Pulse Ox 99 F 100 18 130/69 H 93 12/01/18 04:58 12/01/18 07:46 12/01/18 04:58 12/01/18 04:58 12/01/18 04:58 Oxygen Delivery Method Room Air Weight: 159 lb 9.835 oz Body Mass Index (BMI) 27.3 Intake and Output for Last 24 Hours 11/29/18 11/30/18 12/01/18 23:59 23:59 23:59 Intake Total 623 / 623 Balance 623 / 623 Laboratory Tests Past 24 Hrs 11/30/18 11/30/18 11/30/18 18:28 18:28 18:28 WBC 13.3 H RBC 4.56 Hgb 13.0 Hct 38.7 MCV 84.9 MCH 28.5 MCHC 33.6 RDW 13.3 RDW Differential 41.3 Plt Count 424 MPV 9.8 Immature Gran % (Auto) 0.500 Neut % (Auto) 74.6 H Lymph % (Auto) 13.0 L [place] % (Auto) 11.2 H Eos % (Auto) 0.5 Baso % (Auto) 0.2 Absolute Neuts (auto) 10.0 H Absolute Lymphs (auto) 1.73 Total Counted Not Reportable Sodium 138 Potassium 3.8 Chloride 105 Carbon Dioxide 23.0 Anion Gap 10 BUN 19 H Creatinine 0.85 Estim Creat Clear Calc 65.71 Est GFR (MDRD) Af Amer 88 Est GFR (MDRD) Non-Af 73 BUN/Creatinine Ratio 22.4 H Glucose 129 H Lactic Acid Calcium 9.1 Total Bilirubin Direct Bilirubin AST ALT Alkaline Phosphatase Total Protein Albumin Globulin Urine Color Anu Urine Clarity Sl. Cloudy Urine pH 6.0 Ur Specific [place] 1.025 Urine Protein 30 H Urine Glucose (UA) Normal Urine Ketones 150 H Urine Occult Blood 10 H Urine Nitrite Negative Urine Bilirubin 1 H Urine Urobilinogen 1 H Ur Leukocyte Esterase 500 H Urine RBC 0-5 SEEN Urine WBC 10-25 SEEN Ur Squamous Epith Cells 10-25 SEEN Ur Transition Epith Cell 0-5 SEEN Ur Renal Epithelial Cell 0-5 SEEN Urine Bacteria 2+ Urine Mucus 2+ 11/30/18 11/30/18 18:28 19:27 WBC RBC Hgb Hct MCV MCH MCHC RDW RDW Differential Plt Count MPV Immature Gran % (Auto) Neut % (Auto) Lymph % (Auto) [place] % (Auto) Eos % (Auto) Baso % (Auto) Absolute Neuts (auto) Absolute Lymphs (auto) Total Counted Sodium Potassium Chloride Carbon Dioxide Anion Gap BUN Creatinine Estim Creat Clear Calc Est GFR (MDRD) Af Amer Est GFR (MDRD) Non-Af BUN/Creatinine Ratio Glucose Lactic Acid 1.2 Calcium Total Bilirubin 1.00 Direct Bilirubin 0.17 AST 15 ALT 17 Alkaline Phosphatase 130 H Total Protein 7.7 Albumin 3.1 L Globulin 4.6 H Urine Color Urine Clarity Urine pH Ur Specific [place] Urine Protein Urine Glucose (UA) Urine Ketones Urine Occult Blood Urine Nitrite Urine Bilirubin Urine Urobilinogen Ur Leukocyte Esterase Urine RBC Urine WBC Ur Squamous Epith Cells Ur Transition Epith Cell Ur Renal Epithelial Cell Urine Bacteria Urine Mucus Medical Necessity - Tobacco Use Smoking Status: Never smoker Assessment/Plan All Active Problems (Last Reviewed 12/01/18 @ 04:37 by Ramón Linares MD) Colitis (Acute) Diarrhea (Acute) Nausea (Acute) Internal bleeding hemorrhoids (Acute) I am following this patient in conjunction with Dr. Nam. Impression: diarrhea. weight loss. Colitis Plan for upper and lower scope on . Patient would like pill prep. Will discuss with pharmacy to see if this is available. Continue clear liquids at this point. We will continue to follow this patient. Code Visit Inpatient E&M: 60935 Subs Hosp L1 - No charge
--- NOTE | 2018-12-01 10:11 | NURSING ---
c/o abd pain and nausea. Alaina LEONE paged.
[2018-12-01] MEDS: Ketorolac 15 MG/ML Vial IV ×2 (10:35→18:04)
[2018-12-01] MEDS: Ciprofloxacin 400 MG/200 ML BAG 200 MG IV ×2 (14:20→21:06)
--- NOTE | 2018-12-01 15:33 | PCM.PN.HOSP ---
Patient Problems: Active and Suspected Problems (Last Reviewed 12/01/18 @ 04:37 by Ramón Linares MD) Colitis (Acute) Diarrhea (Acute) Nausea (Acute) Subjective: still with abdominal pain, but better. Vitals/I&O's: Vital Signs Temp Pulse Resp BP Pulse Ox 37.1 C 100 16 111/82 H 97 12/01/18 13:54 12/01/18 14:33 12/01/18 13:54 12/01/18 13:54 12/01/18 13:54 Oxygen Delivery Method Room Air Weight: 72.4 kg Body Mass Index (BMI) 27.3 Intake and Output for Last 24 Hours 11/29/18 11/30/18 12/01/18 23:59 23:59 23:59 Intake Total 1635 / 1635 Balance 1635 / 1635 General: Alert, No apparent distress HEENT: Atraumatic, Normocephalic Oral: Moist Mucosa, No Gingival or Mucosal Lesions/ Ulcerations Neck: No Nodes, Thyroid Normal Size and Texture Lungs: Clear to auscultation, Normal air movement, No rhonchi, No wheeze Cardiovascular: Regular rate, Regular Rhythm, Normal S1, Normal S2, No murmurs Abdomen: Bowel Sounds Present, Soft, Non-Distended, Tender Extremities: No clubbing, No edema, No Calf Tenderness Skin: No rashes, No breakdown Musculoskeletal: No Tenderness to Palpation of Joints or Extremities, No Muscle Wasting Psych/Mental Status: Normal Affect, Appropriate Laboratory Results 11/30/18 18:28: WBC 13.3 H, RBC 4.56, Hgb 13.0, Hct 38.7, MCV 84.9, MCH 28.5, MCHC 33.6, RDW 13.3, RDW Differential 41.3, Plt Count 424, MPV 9.8, Immature Gran % (Auto) 0.500, Neut % (Auto) 74.6 H, Lymph % (Auto) 13.0 L, [place] % (Auto) 11.2 H, Eos % (Auto) 0.5, Baso % (Auto) 0.2, Absolute Neuts (auto) 10.0 H, Absolute Lymphs (auto) 1.73, Total Counted Not Reportable 11/30/18 18:28: Sodium 138, Potassium 3.8, Chloride 105, Carbon Dioxide 23.0, Anion Gap 10, BUN 19 H, Creatinine 0.85, Estim Creat Clear Calc 65.71, Est GFR (MDRD) Af Amer 88, Est GFR (MDRD) Non-Af 73, BUN/Creatinine Ratio 22.4 H, Glucose 129 H, Calcium 9.1 11/30/18 18:28: Urine Color Anu, Urine Clarity Sl. Cloudy, Urine pH 6.0, Ur Specific [place] 1.025, Urine Protein 30 H, Urine Glucose (UA) Normal, Urine Ketones 150 H, Urine Occult Blood 10 H, Urine Nitrite Negative, Urine Bilirubin 1 H, Urine Urobilinogen 1 H, Ur Leukocyte Esterase 500 H, Urine RBC 0-5 SEEN, Urine WBC 10-25 SEEN, Ur Squamous Epith Cells 10-25 SEEN, Ur Transition Epith Cell 0-5 SEEN, Ur Renal Epithelial Cell 0-5 SEEN, Urine Bacteria 2+, Urine Mucus 2+ 11/30/18 18:28: Total Bilirubin 1.00, Direct Bilirubin 0.17, AST 15, ALT 17, Alkaline Phosphatase 130 H, Total Protein 7.7, Albumin 3.1 L, Globulin 4.6 H 11/30/18 19:27: Lactic Acid 1.2 Current Medications Acetaminophen (Tylenol) 650 mg PO Q6H PRN PRN PRN Reason: Mild pain 1-3/Temp > 100.7 F Dextrose (D50w Syringe) 0 gm IV X1 PRN; Protocol PRN Reason: Hypoglycemia Dicyclomine HCl (Bentyl) 20 mg PO TIDAC [facility] Last Admin: 12/01/18 15:24 Dose: 20 mg Diphenoxylate HCl/Atropine (Lomotil) 1 tablet PO TID [facility] Last Admin: 12/01/18 13:09 Dose: 1 tablet Enoxaparin Sodium (Lovenox) 40 mg SC DAILY@1000 [facility] Last Admin: 12/01/18 08:59 Dose: 40 mg Fluconazole (Fluconazole) 150 mg PO X1 PRN PRN Reason: yeast infection Glucagon () 1 mg IM .X1 PRN PRN Reason: Hypoglycemia Lactated Ringer's () 1,000 mls @ 100 mls/hr IV .Q10H [facility] Last Admin: 12/01/18 10:32 Dose: 100 mls/hr Ciprofloxacin (Cipro) 400 mg in 200 mls @ 200 mls/hr IV Q12 [facility] Last Admin: 12/01/18 14:20 Dose: 200 mls/hr Metronidazole (Flagyl) 500 mg in 100 mls @ 100 mls/hr IV Q8 [facility] Last Admin: 12/01/18 15:24 Dose: 100 mls/hr Ketorolac Tromethamine (Toradol) 15 mg IV Q6H PRN PRN PRN Reason: PAIN Stop: 12/06/18 10:17 Last Admin: 12/01/18 10:35 Dose: 15 mg Levothyroxine Sodium (Synthroid) 50 mcg PO DAILY@0600 [facility] Last Admin: 12/01/18 05:06 Dose: 50 mcg Melatonin (Melatonin) 3 mg PO QHS PRN PRN PRN Reason: INSOMNIA Nutritional Formula (Lactose Free) (Ensure Clear) 120 ml PO 4X/DAY [facility] Last Admin: 12/01/18 12:56 Dose: Not Given Ondansetron HCl (Zofran) 4 mg IV Q6H PRN PRN PRN Reason: NAUSEA/VOMITING Last Admin: 12/01/18 14:29 Dose: 4 mg Sodium Chloride () 5 - 15 ml IV UD PRN PRN Reason: SALINE FLUSH Last Admin: 12/01/18 14:29 Dose: 10 ml Vitamin A/Vitamin D (A & D) 1 applic TOPICAL TID [facility]; Protocol Last Admin: 12/01/18 13:10 Dose: 1 applic Medical Necessity - Tobacco Use Smoking Status: Never smoker Assessment/Plan All Active Problems (Last Reviewed 12/01/18 @ 04:37 by Ramón Linares MD) Colitis (Acute) Diarrhea (Acute) Nausea (Acute) Internal bleeding hemorrhoids (Acute) 1. acute colitis ischemic v infectious (doubt inflammatory) start empiric abx with cipro and metronidazole (PRN diflucan for vaginal yeast infection) colonoscopy on 12/[address] Nam 2. VTE proph: LMWH Code Visit Inpatient E&M: 98147 Subs Hosp L2
--- NOTE | 2018-12-01 15:37 | PN_ITS ---
Patient Problems: Active and Suspected Problems (Last Reviewed 12/01/18 @ 04:37 by Ramón Linares MD) Colitis (Acute) Diarrhea (Acute) Nausea (Acute) Subjective: still with abdominal pain, but better. Vitals/I&O's: Vital Signs Temp Pulse Resp BP Pulse Ox 37.1 C 100 16 111/82 H 97 12/01/18 13:54 12/01/18 14:33 12/01/18 13:54 12/01/18 13:54 12/01/18 13:54 Oxygen Delivery Method Room Air Weight: 72.4 kg Body Mass Index (BMI) 27.3 Intake and Output for Last 24 Hours 11/29/18 11/30/18 12/01/18 23:59 23:59 23:59 Intake Total 1635 / 1635 Balance 1635 / 1635 General: Alert, No apparent distress HEENT: Atraumatic, Normocephalic Oral: Moist Mucosa, No Gingival or Mucosal Lesions/ Ulcerations Neck: No Nodes, Thyroid Normal Size and Texture Lungs: Clear to auscultation, Normal air movement, No rhonchi, No wheeze Cardiovascular: Regular rate, Regular Rhythm, Normal S1, Normal S2, No murmurs Abdomen: Bowel Sounds Present, Soft, Non-Distended, Tender Extremities: No clubbing, No edema, No Calf Tenderness Skin: No rashes, No breakdown Musculoskeletal: No Tenderness to Palpation of Joints or Extremities, No Muscle Wasting Psych/Mental Status: Normal Affect, Appropriate Laboratory Results 11/30/18 18:28: WBC 13.3 H, RBC 4.56, Hgb 13.0, Hct 38.7, MCV 84.9, MCH 28.5, MCHC 33.6, RDW 13.3, RDW Differential 41.3, Plt Count 424, MPV 9.8, Immature Gran % (Auto) 0.500, Neut % (Auto) 74.6 H, Lymph % (Auto) 13.0 L, [place] % (Auto) 11.2 H, Eos % (Auto) 0.5, Baso % (Auto) 0.2, Absolute Neuts (auto) 10.0 H, Absolute Lymphs (auto) 1.73, Total Counted Not Reportable 11/30/18 18:28: Sodium 138, Potassium 3.8, Chloride 105, Carbon Dioxide 23.0, Anion Gap 10, BUN 19 H, Creatinine 0.85, Estim Creat Clear Calc 65.71, Est GFR (MDRD) Af Amer 88, Est GFR (MDRD) Non-Af 73, BUN/Creatinine Ratio 22.4 H, Glu cose 129 H, Calcium 9.1 11/30/18 18:28: Urine Color [place], Urine Clarity Sl. Cloudy, Urine pH 6.0, Ur Specific [place] 1.025, Urine Protein 30 H, Urine Glucose (UA) Normal, Urine Ketones 150 H, Urine Occult Blood 10 H, Urine Nitrite Negative, Urine Bilirubin 1 H, Urine Urobilinogen 1 H, Ur Leukocyte Esterase 500 H, Urine RBC 0-5 SEEN, Urine WBC 10-25 SEEN, Ur Squamous Epith Cells 10-25 SEEN, Ur Transition Epith Cell 0-5 SEEN, Ur Renal Epithelial Cell 0-5 SEEN, Urine Bacteria 2+, Urine Mucus 2+ 11/30/18 18:28: Total Bilirubin 1.00, Direct Bilirubin 0.17, AST 15, ALT 17, Alkaline Phosphatase 130 H, Total Protein 7.7, Albumin 3.1 L, Globulin 4.6 H 11/30/18 19:27: Lactic Acid 1.2 Current Medications Acetaminophen (Tylenol) 650 mg PO Q6H PRN PRN PRN Reason: Mild pain 1-3/Temp > 100.7 F Dextrose (D50w Syringe) 0 gm IV X1 PRN; Protocol PRN Reason: Hypoglycemia Dicyclomine HCl (Bentyl) 20 mg PO TIDAC [facility] Last Admin: 12/01/18 15:24 Dose: 20 mg Diphenoxylate HCl/Atropine (Lomotil) 1 tablet PO TID [facility] Last Admin: 12/01/18 13:09 Dose: 1 tablet Enoxaparin Sodium (Lovenox) 40 mg SC DAILY@1000 [facility] Last Admin: 12/01/18 08:59 Dose: 40 mg Fluconazole (Fluconazole) 150 mg PO X1 PRN PRN Reason: yeast infection Glucagon () 1 mg IM .X1 PRN PRN Reason: Hypoglycemia Lactated Ringer's () 1,000 mls @ 100 mls/hr IV .Q10H [facility] Last Admin: 12/01/18 10:32 Dose: 100 mls/hr Ciprofloxacin (Cipro) 400 mg in 200 mls @ 200 mls/hr IV Q12 [facility] Last Admin: 12/01/18 14:20 Dose: 200 mls/hr Metronidazole (Flagyl) 500 mg in 100 mls @ 100 mls/hr IV Q8 [facility] Last Admin: 12/01/18 15:24 Dose: 100 mls/hr Ketorolac Tromethamine (Toradol) 15 mg IV Q6H PRN PRN PRN Reason: PAIN Stop: 12/06/18 10:17 Last Admin: 12/01/18 10:35 Dose: 15 mg Levothyroxine Sodium (Synthroid) 50 mcg PO DAILY@0600 [facility] Last Admin: 12/01/18 05:06 Dose: 50 mcg Melatonin (Melatonin) 3 mg PO QHS PRN PRN PRN Reason: INSOMNIA Nutritional Formula (Lactose Free) (Ensure Clear) 120 ml PO 4X/DAY [facility] Last Admin: 12/01/18 12:56 Dose: Not Given Ondansetron HCl (Zofran) 4 mg IV Q6H PRN PRN PRN Reason: NAUSEA/VOMITING Last Admin: 12/01/18 14:29 Dose: 4 mg Sodium Chloride () 5 - 15 ml IV UD PRN PRN Reason: SALINE FLUSH Last Admin: 12/01/18 14:29 Dose: 10 ml Vitamin A/Vitamin D (A & D) 1 applic TOPICAL TID [facility]; Protocol Last Admin: 12/01/18 13:10 Dose: 1 applic Medical Necessity - Tobacco Use Smoking Status: Never smoker Assessment/Plan All Active Problems (Last Reviewed 12/01/18 @ 04:37 by Ramón Linares MD) Colitis (Acute) Diarrhea (Acute) Nausea (Acute) Internal bleeding hemorrhoids (Acute) 1. acute colitis * ischemic v infectious (doubt inflammatory) * start empiric abx with cipro and metronidazole (PRN diflucan for vaginal yeast infection) * colonoscopy on 12/[address] Nam 2. VTE proph: LMWH Code Visit Inpatient E&M: 35909 Subs Hosp L2
[2018-12-02 02:42] VITALS: BP 106/54; PULSE 111; RESP 16; TEMP 37.6; O2SAT 96
[2018-12-02 03:00] VITALS: PULSE 114
[2018-12-02 05:45] LABS: Absolute Lymphocyte Count 2.14 X10^3/ul (0.83-4.51); Absolute Neutrophil Count 6.1 X10^3/uL (2.0-7.7); Basophil# 0.05 X10^3/uL; Basophil% 0.5 % (0-1); Differential Indicated SCAN CRITERIA MET; Eosinophil# 0.29 X10^3/uL; Eosinophils% 2.9 % (0-5); Hemoglobin 10.5 g/dl (12.0-15.0); Lymphocyte # 2.14 X10^3/ul (4.0); Lymphocyte % 21.7 % (19-41); Mean Corp Hgb Conc 31.8 g/gl (32-36); Mean Corpuscular Hgb 27.4 pg (27.0-32.0); Mean Corpuscular Volume 86.2 fL (81-99); Mean Platelet Vol. 9.6 fl (6.2-12.0); Monocyte# 1.12 X10^3/uL; Monocyte% 11.4 % (0-10); Neutrophil # 6.11 X10^3/uL (2.7-7.7); Neutrophil % 62.2 % (47-70); POSITIVE COUNT NO; POSITIVE DIFFERENTIAL NO; POSITIVE MORPHOLOGY YES; Platelet Count 335 K/mm3 (150-450); RBC Distribution Width CV 13.3 % (11.6-14.6); RBC Distribution Width SD 40.8 fl (35.1-43.9); Red Blood Count 3.83 M/mm3 (4.2-5.4); White Blood Count 9.8 K/mm3 (4.4-11.0)
[2018-12-02 05:56] LABS: Anion Gap 9 (5-15); BUN 10 mg/dL (7-18); BUN/Creat Ratio 17.5 RATIO (10-20); Calcium,Total 8.2 mg/dL (8.5-10.1); Chloride 106 mmol/L (98-107); Creatinine, Serum 0.57 mg/dL (0.55-1.02); EST Glomerular Filtration Rate 115 mL/min (>60); Est Glom Filt Rate - Afr Amer 140 mL/min (>60); Estimated Creatinine Clearance 94.03 ml/min; Glucose 87 mg/dL (74-106); Potassium 3.4 mmol/L (3.5-5.1); Sodium Level 139 mmol/L (136-145)
--- NOTE | 2018-12-02 05:57 | PN.SURG_ITS ---
Patient Problems: Active and Suspected Problems (Last Reviewed 12/01/18 @ 04:37 by Ramón Linares MD) Colitis (Acute) Diarrhea (Acute) Nausea (Acute) Subjective: Pt states feels better but worried that Ab will start a yeast infection that she feels is starting Admission UA was abnormal - Physical Exam Abdomen: Bowel Sounds Present, Soft, Non Tender Vital Signs Temp Pulse Resp BP Pulse Ox 99.7 F H 114 H 16 106/54 L 96 12/02/18 02:42 12/02/18 03:00 12/02/18 02:42 12/02/18 02:42 12/02/18 02:42 Oxygen Delivery Method Room Air Weight: 159 lb 9.835 oz Body Mass Index (BMI) 27.3 Intake and Output for Last 24 Hours 11/30/18 12/01/18 12/02/18 23:59 23:59 23:59 Intake Total 2262 / 2262 1037 / 1037 Balance 2262 / 2262 1037 / 1037 Laboratory Tests Past 24 Hrs 12/02/18 12/02/18 05:20 05:20 WBC 9.8 RBC 3.83 L Hgb 10.5 L Hct 33.0 L MCV 86.2 MCH 27.4 MCHC 31.8 L RDW 13.3 RDW Differential 40.8 Plt Count 335 MPV 9.6 Immature Gran % (Auto) 1.300 H Neut % (Auto) 62.2 Lymph % (Auto) 21.7 [place] % (Auto) 11.4 H Eos % (Auto) 2.9 Baso % (Auto) 0.5 Absolute Neuts (auto) 6.1 Absolute Lymphs (auto) 2.14 Total Counted Pending Sodium Pending Potassium Pending Chloride Pending Carbon Dioxide Pending Anion Gap Pending BUN Pending Creatinine Pending Est GFR (MDRD) Af Amer Pending Est GFR (MDRD) Non-Af Pending BUN/Creatinine Ratio Pending Glucose Pending Calcium Pending Medical Necessity - Tobacco Use Smoking Status: Never smoker Assessment/Plan All Active Problems (Last Reviewed 12/01/18 @ 04:37 by Ramón Linares MD) Colitis (Acute) Diarrhea (Acute) Nausea (Acute) Internal bleeding hemorrhoids (Acute) Bowel prep today for EGD/cscope tomorrow Leukocytosis resolved. Relative anemia noted, partial hemodilution Fluconazole already provided Pt c/o persistent nausea. Will start pantoprazole and have Alaina discuss bowel prep
[2018-12-02] MEDS: Vitamins A and D Ointment 1 APPLIC TOPICAL ×3 (06:04→21:00)
[2018-12-02] MEDS: Levothyroxine 50 MCG Tablet PO (06:05)
[2018-12-02] MEDS: Diphenoxylate/Atrop 1 Tablet PO (06:05)
[2018-12-02] MEDS: Dicyclomine 10 MG Capsule 20 MG PO ×2 (06:05→11:28)
[2018-12-02 06:27] LABS: Differential Comment SCANNED
[2018-12-02] MEDS: Pantoprazole Sodium 40 MG Tablet PO (06:39)
[2018-12-02] MEDS: FLUCONAZOLE 150 MG TABLET PO (06:39)
[2018-12-02] MEDS: Ondansetron 4 MG/2 ML Vial IV ×2 (06:44→14:02)
[2018-12-02 06:59] VITALS: PULSE 99
[2018-12-02 08:07] VITALS: BP 118/72; PULSE 95; RESP 16; TEMP 37.1; O2SAT 95
[2018-12-02] MEDS: Ensure Clear 120 ML Liquid PO (08:24)
[2018-12-02] MEDS: proMETHazine 25 MG/ML Syringe 12.5 MG IV ×2 (08:24→15:36)
[2018-12-02] MEDS: Enoxaparin 40 MG/0.4 ML Syringe SC (08:25)
[2018-12-02] MEDS: Ciprofloxacin 400 MG/200 ML BAG 200 MG IV ×2 (09:19→21:01)
[2018-12-02] MEDS: Lactated Ringers 1,000 ML 100 ML IV ×2 (09:19→21:00)
--- NOTE | 2018-12-02 09:33 | PCM.PN.SRG ---
Patient Problems: Active and Suspected Problems (Last Reviewed 12/01/18 @ 04:37 by Ramón Linares MD) Colitis (Acute) Diarrhea (Acute) Nausea (Acute) Subjective: Patient evaluated resting in bed. She noted feeling nauseated this morning. Patient states she recently took Fluconazole x 1 tablet this morning on an empty stomach around 6:45. Patient did end up dry heaving and having diarrhea when I was in the room. Patient was assisted to the bathroom and nursing was notified. Patient is scheduled to have upper/lower scope with MAC tomorrow morning with Dr. Nam. - Physical Exam General: Alert, Oriented x3, Cooperative Vital Signs Temp Pulse Resp BP Pulse Ox 98.8 F 95 16 118/72 95 12/02/18 08:07 12/02/18 08:07 12/02/18 08:07 12/02/18 08:07 12/02/18 08:07 Oxygen Delivery Method Room Air Weight: 159 lb 9.835 oz Body Mass Index (BMI) 27.3 Intake and Output for Last 24 Hours 11/30/18 12/01/18 12/02/18 23:59 23:59 23:59 Intake Total 2262 / 2262 1649 / 1649 Balance 2262 / 2262 1649 / 1649 Laboratory Tests Past 24 Hrs 12/02/18 12/02/18 05:20 05:20 WBC 9.8 RBC 3.83 L Hgb 10.5 L Hct 33.0 L MCV 86.2 MCH 27.4 MCHC 31.8 L RDW 13.3 RDW Differential 40.8 Plt Count 335 MPV 9.6 Immature Gran % (Auto) 1.300 H Neut % (Auto) 62.2 Lymph % (Auto) 21.7 [place] % (Auto) 11.4 H Eos % (Auto) 2.9 Baso % (Auto) 0.5 Absolute Neuts (auto) 6.1 Absolute Lymphs (auto) 2.14 Total Counted Not Reportable Differential Comment SCANNED Sodium 139 Potassium 3.4 L Chloride 106 Carbon Dioxide 24.0 Anion Gap 9 BUN 10 Creatinine 0.57 Estim Creat Clear Calc 94.03 Est GFR (MDRD) Af Amer 140 Est GFR (MDRD) Non-Af 115 BUN/Creatinine Ratio 17.5 Glucose 87 Calcium 8.2 L Medical Necessity - Tobacco Use Smoking Status: Never smoker Assessment/Plan All Active Problems (Last Reviewed 12/01/18 @ 04:37 by Ramón Linares MD) Colitis (Acute) Diarrhea (Acute) Nausea (Acute) Internal bleeding hemorrhoids (Acute) I am following this patient in conjunction with Dr. Nam. Impression: diarrhea. weight loss. Colitis Plan for upper and lower scope on . Will plan for Miralax prep this afternoon Continue clear liquids We will continue to follow this patient. Code Visit Inpatient E&M: 73053 Subs Hosp L1 - No charge
[2018-12-02 12:11] LABS: Bacteria 0 SEEN /hpf (None Seen); Mucous, Urine 0 SEEN /hpf (<or=2+); Red Blood Cells-Urine 0 SEEN /hpf (0-5)
[2018-12-02 12:19] LABS: Color, Urine Yellow (Yellow); Glucose, Dipstick Normal (Normal); Leukocyte Esterase-Dipstick 25 /ul (Negative); Nitrite-Dipstick Negative (Negative); Occult Blood-Urine Negative /ul (Negative); Protein-Dipstick Negative (Negative); Specific Gravity, Urine 1.015 (1.002-1.030); Urine Bilirubin Dipstick Negative (Negative); Urine Clarity Sl. Cloudy (Clear); Urine Urobilinogen Normal (Normal)
[2018-12-02 12:22] LABS: Ketone-Dipstick 150 mg/dl (Negative)
[2018-12-02 12:33] LABS: Squamous Epithelial Cells - UA 0-5 SEEN /hpf (5-10); White Blood Cells 0-5 SEEN /hpf (0-5)
[2018-12-02 14:00] VITALS: BP 117/66; PULSE 106; RESP 18; TEMP 37.1; O2SAT 95
[2018-12-02] MEDS: Bisacodyl 5 MG Tablet 20 MG PO (14:15)
--- NOTE | 2018-12-02 14:39 | PCM.PN.HOSP ---
Patient Problems: Active and Suspected Problems (Last Reviewed 12/01/18 @ 04:37 by Ramón Linares MD) Colitis (Acute) Diarrhea (Acute) Nausea (Acute) Subjective: Feeling better. Developed vaginal irritation c/w her h/o yeast infection and took fluconazole. Vitals/I&O's: Vital Signs Temp Pulse Resp BP Pulse Ox 37.1 C 106 H 18 117/66 95 12/02/18 14:00 12/02/18 14:00 12/02/18 14:00 12/02/18 14:00 12/02/18 14:00 Oxygen Delivery Method Room Air Weight: 72.4 kg Body Mass Index (BMI) 27.3 Intake and Output for Last 24 Hours 11/30/18 12/01/18 12/02/18 23:59 23:59 23:59 Intake Total 2262 / 2262 3075 / 3075 Output Total 900 / 900 Balance 2262 / 2262 2175 / 2175 General: Alert, No apparent distress HEENT: Atraumatic, Normocephalic Oral: Moist Mucosa, No Gingival or Mucosal Lesions/ Ulcerations Neck: No Nodes, Thyroid Normal Size and Texture Lungs: Clear to auscultation, Normal air movement Cardiovascular: Regular rate, Regular Rhythm, Normal S1, Normal S2 Abdomen: Bowel Sounds Present, Soft, Non-Distended, Tender Extremities: No edema, No Calf Tenderness Skin: No rashes, No breakdown Musculoskeletal: No Tenderness to Palpation of Joints or Extremities, No Muscle Wasting Psych/Mental Status: Normal Affect, Appropriate Laboratory Results 12/02/18 05:20: WBC 9.8, RBC 3.83 L, Hgb 10.5 L, Hct 33.0 L, MCV 86.2, MCH 27.4, MCHC 31.8 L, RDW 13.3, RDW Differential 40.8, Plt Count 335, MPV 9.6, Immature Gran % (Auto) 1.300 H, Neut % (Auto) 62.2, Lymph % (Auto) 21.7, [place] % (Auto) 11.4 H, Eos % (Auto) 2.9, Baso % (Auto) 0.5, Absolute Neuts (auto) 6.1, Absolute Lymphs (auto) 2.14, Total Counted Not Reportable, Differential Comment SCANNED 12/02/18 05:20: Sodium 139, Potassium 3.4 L, Chloride 106, Carbon Dioxide 24.0, Anion Gap 9, BUN 10, Creatinine 0.57, Estim Creat Clear Calc 94.03, Est GFR (MDRD) Af Amer 140, Est GFR (MDRD) Non-Af 115, BUN/Creatinine Ratio 17.5, Glucose 87, Calcium 8.2 L 12/02/18 10:40: Urine Color Yellow, Urine Clarity Sl. Cloudy, Urine pH 6.0, Ur Specific [place] 1.015, Urine Protein Negative, Urine Glucose (UA) Normal, Urine Ketones 150 H, Urine Occult Blood Negative, Urine Nitrite Negative, Urine Bilirubin Negative, Urine Urobilinogen Normal, Ur Leukocyte Esterase 25 H, Urine RBC 0 SEEN, Urine WBC 0-5 SEEN, Ur Squamous Epith Cells 0-5 SEEN, Urine Bacteria 0 SEEN, Urine Mucus 0 SEEN Current Medications Acetaminophen (Tylenol) 650 mg PO Q6H PRN PRN PRN Reason: Mild pain 1-3/Temp > 100.7 F Dextrose (D50w Syringe) 0 gm IV X1 PRN; Protocol PRN Reason: Hypoglycemia Dicyclomine HCl (Bentyl) 20 mg PO TIDAC [facility] Last Admin: 12/02/18 11:28 Dose: 20 mg Diphenoxylate HCl/Atropine (Lomotil) 1 tablet PO TID [facility] Last Admin: 12/02/18 06:05 Dose: 1 tablet Enoxaparin Sodium (Lovenox) 40 mg SC DAILY@1000 [facility] Last Admin: 12/02/18 08:25 Dose: 40 mg Fluconazole (Fluconazole) 150 mg PO X1 PRN PRN Reason: yeast infection Last Admin: 12/02/18 06:39 Dose: 150 mg Glucagon () 1 mg IM .X1 PRN PRN Reason: Hypoglycemia Lactated Ringer's () 1,000 mls @ 100 mls/hr IV .Q10H [facility] Last Admin: 12/02/18 09:19 Dose: 100 mls/hr Ciprofloxacin (Cipro) 400 mg in 200 mls @ 200 mls/hr IV Q12 [facility] Last Admin: 12/02/18 09:19 Dose: 200 mls/hr Metronidazole (Flagyl) 500 mg in 100 mls @ 100 mls/hr IV Q8 [facility] Last Admin: 12/02/18 14:12 Dose: 100 mls/hr Ketorolac Tromethamine (Toradol) 15 mg IV Q6H PRN PRN PRN Reason: PAIN Stop: 12/06/18 10:17 Last Admin: 12/01/18 18:04 Dose: 15 mg Levothyroxine Sodium (Synthroid) 50 mcg PO DAILY@0600 [facility] Last Admin: 12/02/18 06:05 Dose: 50 mcg Melatonin (Melatonin) 3 mg PO QHS PRN PRN PRN Reason: INSOMNIA Nutritional Formula (Lactose Free) (Ensure Clear) 120 ml PO 4X/DAY [facility] Last Admin: 12/02/18 14:00 Dose: Not Given Ondansetron HCl (Zofran) 4 mg IV Q6H PRN PRN PRN Reason: NAUSEA/VOMITING Last Admin: 12/02/18 14:02 Dose: 4 mg Pantoprazole Sodium (Protonix) 40 mg PO DAILY [facility] Last Admin: 12/02/18 06:39 Dose: 40 mg Polyethylene Glycol (Miralax) 68 gm PO DAILY [facility] Stop: 12/03/18 16:01 Sodium Chloride () 5 - 15 ml IV UD PRN PRN Reason: SALINE FLUSH Last Admin: 12/01/18 18:04 Dose: 10 ml Vitamin A/Vitamin D (A & D) 1 applic TOPICAL TID [facility]; Protocol Last Admin: 12/02/18 14:15 Dose: 1 applic Medical Necessity - Tobacco Use Smoking Status: Never smoker Assessment/Plan All Active Problems (Last Reviewed 12/01/18 @ 04:37 by Ramón Linares MD) Colitis (Acute) Diarrhea (Acute) Nausea (Acute) Internal bleeding hemorrhoids (Acute) 1. acute colitis ischemic v infectious (doubt inflammatory) start empiric abx with cipro and metronidazole colonoscopy on 12/[address] Nam 2. VTE proph: LMWH Code Visit Inpatient E&M: 60295 Subs Hosp L2
--- NOTE | 2018-12-02 14:42 | PN_ITS ---
Patient Problems: Active and Suspected Problems (Last Reviewed 12/01/18 @ 04:37 by Ramón Linares MD) Colitis (Acute) Diarrhea (Acute) Nausea (Acute) Subjective: Feeling better. Developed vaginal irritation c/w her h/o yeast infection and took fluconazole. Vitals/I&O's: Vital Signs Temp Pulse Resp BP Pulse Ox 37.1 C 106 H 18 117/66 95 12/02/18 14:00 12/02/18 14:00 12/02/18 14:00 12/02/18 14:00 12/02/18 14:00 Oxygen Delivery Method Room Air Weight: 72.4 kg Body Mass Index (BMI) 27.3 Intake and Output for Last 24 Hours 11/30/18 12/01/18 12/02/18 23:59 23:59 23:59 Intake Total 2262 / 2262 3075 / 3075 Output Total 900 / 900 Balance 2262 / 2262 2175 / 2175 General: Alert, No apparent distress HEENT: Atraumatic, Normocephalic Oral: Moist Mucosa, No Gingival or Mucosal Lesions/ Ulcerations Neck: No Nodes, Thyroid Normal Size and Texture Lungs: Clear to auscultation, Normal air movement Cardiovascular: Regular rate, Regular Rhythm, Normal S1, Normal S2 Abdomen: Bowel Sounds Present, Soft, Non-Distended, Tender Extremities: No edema, No Calf Tenderness Skin: No rashes, No breakdown Musculoskeletal: No Tenderness to Palpation of Joints or Extremities, No Muscle Wasting Psych/Mental Status: Normal Affect, Appropriate Laboratory Results 12/02/18 05:20: WBC 9.8, RBC 3.83 L, Hgb 10.5 L, Hct 33.0 L, MCV 86.2, MCH 27.4, MCHC 31.8 L, RDW 13.3, RDW Differential 40.8, Plt Count 335, MPV 9.6, Immature Gran % (Auto) 1.300 H, Neut % (Auto) 62.2, Lymph % (Auto) 21.7, [place] % (Auto) 11.4 H, Eos % (Auto) 2.9, Baso % (Auto) 0.5, Absolute Neuts (auto) 6.1, Absolute Lymphs (auto) 2.14, Total Counted Not Reportable, Differential Comment SCANNED 12/02/18 05:20: Sodium 139, Potassium 3.4 L, Chloride 106, Carbon Dioxide 24.0, Anion Gap 9, BUN 10, Creatinine 0.57, Estim Creat Clear Calc 94.03, Est GFR (MDRD) Af Amer 140, Est GFR (MDRD) Non-Af 115, BUN/Creatinine Ratio 17.5, Glucose 87, Calcium 8.2 L 12/02/18 10:40: Urine Color Yellow, Urine Clarity Sl. Cloudy, Urine pH 6.0, Ur Specific [place] 1.015, Urine Protein Negative, Urine Glucose (UA) Normal, Urine Ketones 150 H, Urine Occult Blood Negative, Urine Nitrite Negative, Urine Bilirubin Negative, Urine Urobilinogen Normal, Ur Leukocyte Esterase 25 H, Urine RBC 0 SEEN, Urine WBC 0-5 SEEN, Ur Squamous Epith Cells 0-5 SEEN, Urine Bacteria 0 SEEN, Urine Mucus 0 SEEN Current Medications Acetaminophen (Tylenol) 650 mg PO Q6H PRN PRN PRN Reason: Mild pain 1-3/Temp > 100.7 F Dextrose (D50w Syringe) 0 gm IV X1 PRN; Protocol PRN Reason: Hypoglycemia Dicyclomine HCl (Bentyl) 20 mg PO TIDAC [facility] Last Admin: 12/02/18 11:28 Dose: 20 mg Diphenoxylate HCl/Atropine (Lomotil) 1 tablet PO TID [facility] Last Admin: 12/02/18 06:05 Dose: 1 tablet Enoxaparin Sodium (Lovenox) 40 mg SC DAILY@1000 [facility] Last Admin: 12/02/18 08:25 Dose: 40 mg Fluconazole (Fluconazole) 150 mg PO X1 PRN PRN Reason: yeast infection Last Admin: 12/02/18 06:39 Dose: 150 mg Glucagon () 1 mg IM .X1 PRN PRN Reason: Hypoglycemia Lactated Ringer's () 1,000 mls @ 100 mls/hr IV .Q10H [facility] Last Admin: 12/02/18 09:19 Dose: 100 mls/hr Ciprofloxacin (Cipro) 400 mg in 200 mls @ 200 mls/hr IV Q12 [facility] Last Admin: 12/02/18 09:19 Dose: 200 mls/hr Metronidazole (Flagyl) 500 mg in 100 mls @ 100 mls/hr IV Q8 [facility] Last Admin: 12/02/18 14:12 Dose: 100 mls/hr Ketorolac Tromethamine (Toradol) 15 mg IV Q6H PRN PRN PRN Reason: PAIN Stop: 12/06/18 10:17 Last Admin: 12/01/18 18:04 Dose: 15 mg Levothyroxine Sodium (Synthroid) 50 mcg PO DAILY@0600 [facility] Last Admin: 12/02/18 06:05 Dose: 50 mcg Melatonin (Melatonin) 3 mg PO QHS PRN PRN PRN Reason: INSOMNIA Nutritional Formula (Lactose Free) (Ensure Clear) 120 ml PO 4X/DAY [facility] Last Admin: 12/02/18 14:00 Dose: Not Given Ondansetron HCl (Zofran) 4 mg IV Q6H PRN PRN PRN Reason: NAUSEA/VOMITING Last Admin: 12/02/18 14:02 Dose: 4 mg Pantoprazole Sodium (Protonix) 40 mg PO DAILY [facility] Last Admin: 12/02/18 06:39 Dose: 40 mg Polyethylene Glycol (Miralax) 68 gm PO DAILY [facility] Stop: 12/03/18 16:01 Sodium Chloride () 5 - 15 ml IV UD PRN PRN Reason: SALINE FLUSH Last Admin: 12/01/18 18:04 Dose: 10 ml Vitamin A/Vitamin D (A & D) 1 applic TOPICAL TID [facility]; Protocol Last Admin: 12/02/18 14:15 Dose: 1 applic Medical Necessity - Tobacco Use Smoking Status: Never smoker Assessment/Plan All Active Problems (Last Reviewed 12/01/18 @ 04:37 by Ramón Linares MD) Colitis (Acute) Diarrhea (Acute) Nausea (Acute) Internal bleeding hemorrhoids (Acute) 1. acute colitis * ischemic v infectious (doubt inflammatory) * start empiric abx with cipro and metronidazole * colonoscopy on 12/[address] Nam 2. VTE proph: LMWH Code Visit Inpatient E&M: 34119 Subs Hosp L2
[2018-12-02] MEDS: Polyethylene Glycol 3350 17 GM PACKET 68 GM PO (16:48)
[2018-12-02 20:00] VITALS: BP 146/92; PULSE 122; RESP 19; TEMP 36.8; O2SAT 93
--- NOTE | 2018-12-02 23:47 | NURSING ---
RN to RN report given; pt stable, call light within reach.
[2018-12-03] VITALS (10 sets, daily range): BP systolic 101–133; BP diastolic 46–86; PULSE 88–112; RESP 16–18; TEMP 36.6–37.3; O2SAT 92–97
--- NOTE | 2018-12-03 | IMM_PTH ---
PATIENT: CHANEL PRASAD LOC: PCU U#:[id number] AGE/SX: 58/F ROOM: [facility] RE12/03/[address]: Dr. Marito Gupta DO : 1960 BED: 1 DIS: 12/04/2018 SPEC #: [id number] RECD: 12/04/18 14:22 STATUS: HEBER REQ #: [id number] INA: 12/03/18 00:[address]: Alexander Nam DEPT: IMMUNOHISTOCHEMISTRY RECD BY: Abbey Alaniz ENTERED: 12/04/18 14:30 SP TYPE: IMMUNO OTHR DR: DO Dr. Marito Arndt MD Dr. Joseph Agyepong, MD Tissues: B - Stomach, NOS D - COLON BIOPSY Procedures: H Pylori (initial) CK20 (add) JENSEN-2 (add) KI-67 (add) P53 (add) CDX2 (add) CK7 (initial) PHYSICIAN & [address] [address] SPECIMEN INFORMATION: Tissue Source: B - Antral biopsy, D - Random colonic biopsy Clinical Info: Nausea, epigastric pain, diarrhea Specimen Number: [id number] B & D CPT code: 68575 x2, 27724 x5 METHODOLOGY: Deparaffinized sections of prefer/formalin-fixed tissue or PAP/DQ stained slides are incubated with monoclonal/polyclonal antibodies/oligonucleotide probes. Localization is made via biotin free immunoperoxidase method. Appropriate controls are performed and reacted as expected. Results on target cell population are indicated in the following table: RESULTS: ANTIBODY / CLONE RESULT Block B H Pylori (polyclonal) negative Block D CK7 (OV-TL12/30) negative CK20 (KS20.8) negative CDX2 (PLS2426L) negative Ki-67 (30-9) positive in 30% of lesional cells P53 (DO-7) positive in 15% of lesional cells JENSEN-2 (SP21) negative These tests were developed and their performance characteristics determined by [facility]. They may not have been cleared or approved by the U.[place]. Food and Drug Administration. The FDA has determined that such clearance or approval is not necessary. INTERPRETATION: B. Antral biopsy: Negative for Helicobacter pylori organisms. D. Random colonic biopsy: Immunohistochemical stains performed on the random colonic biopsy with atypical glands favor reactive atypia within this area. CE:[email or web address] 12/16/18
[2018-12-03] MEDS: Vitamins A and D Ointment 1 APPLIC TOPICAL ×3 (05:27→22:55)
--- NOTE | 2018-12-03 06:30 | EGD_PTH ---
PATIENT: CHANEL PRASAD LOC: PCU U#:[id number] AGE/SX: 58/F ROOM: [facility] RE12/03/[address]: Dr. Marito Gupta DO : 1960 BED: 1 DIS: 12/04/2018 SPEC #: [id number] RECD: 12/03/18 10:15 STATUS: HEBER REDereck #: [id number] INA: 12/03/18 06:[address]: Alexander Nam DEPT: SURGICAL PATHOLOGY RECD BY: Geo Cardenas ENTERED: 12/03/18 10:56 SP TYPE: EGD BIOPSY OTHR DR: DO Dr. Marito Arndt MD Dr. Joseph Agyepong, MD Tissues: A - Duodenum, NOS B - Gastric mucous membrane C - Esophageal mucous membrane D - COLON BIOPSY Procedures: Special Stain Group II Surgery Specimen Level IV Alcian Blue/PAS (control) HEADER OPERATION: Colonoscopy, EGD ([facility]) PRE-OP DIAGNOSIS: Nausea, epigastric pain, diarrhea TISSUE SUBMITTED: A - Duodenal biopsy, B - Antral biopsy, C - Distal esophagus, D - Random colonic biopsy MICROSCOPIC DIAGNOSIS A. Duodenal biopsy: Mild chronic duodenitis with increased plasma cells. Villous architecture is preserved with normal villous to crypt ratio. B. Antral biopsy: Mild active chronic gastritis. See comment. C. Distal esophagus, biopsy: Squamogastric mucosa with moderate to marked chronic inflammation and increased plasma cells. No dysplasia found. See comment. D. Random colonic biopsy: Active colitis with mucosal ulceration, plasmacytosis, acute cryptitis, crypt microabscess formation, crypt distortion and glandular drop out. Fragment of probable muscularis propria showing active inflammation with clusters of mildly atypical colonic glands, reactive blood vessels and histiocytes. See comment D. CE:shayy 12/16/18 COMMENT B. The results of immunohistochemistry for Helicobacter pylori will be reported separately ([id number]). C. PAS/Alcian blue stain with appropriate control is negative for intestinal type goblet cell metaplasia. D. Immunohistochemistry ([id number]) performed on the random colonic biopsy containing the fragment of probable muscularis propria with atypical glands favors a reactive process. If a lesion is clinically suspected in this location, then rebiopsy may be a consideration. This case was seen in consultation with Dr. Armas of [employer], who agrees with our diagnosis. The complete consultative report is viewable in patient's EMR. Case has been reviewed in consultation with Dr. Quiroz who concurs with the above diagnosis. IDC:AM MICROSCOPIC DESCRIPTION Slides are reviewed. GROSS DESCRIPTION A - Received in fixative is one container labeled with the patient's name and designated duodenal biopsy. The specimen consists of one irregular fragment of light samuel soft tissue that measures 0.3 x 0.2 x 0.1 cm. The specimen is totally submitted in one cassette. B - Received in fixative is one container labeled with the patient's name and designated antral biopsy. The specimen consists of one irregular fragment of light samuel soft tissue that measures 0.6 x 0.2 x 0.1 cm. The specimen is totally submitted in one cassette. C - Received in fixative is one container labeled with the patient's name and designated distal esophagus. The specimen consists of two irregular fragments of light samuel soft tissue that in aggregate measure 0.6 x 0.5 x 0.1 cm. The specimen is totally submitted in one cassette. D - Received in fixative is one container labeled with the patient's name and designated random colon biopsy. The specimen consists of multiple irregular fragments of light samuel soft tissue that in aggregate measure 1 x 0.3 x 0.1 cm. The specimen is totally submitted in one cassette. / AM:shayy 12/03/18 TC:2 [facility]: [id number] x4, [id number]
[2018-12-03 06:32] LABS: Absolute Lymphocyte Count 1.36 X10^3/ul (0.83-4.51); Absolute Neutrophil Count 3.2 X10^3/uL (2.0-7.7); Basophil# 0.05 X10^3/uL; Basophil% 0.9 % (0-1); Eosinophil# 0.24 X10^3/uL; Eosinophils% 4.2 % (0-5); Hematocrit 30.2 % (37-47); Hemoglobin 9.9 g/dl (12.0-15.0); Lymphocyte # 1.36 X10^3/ul (4.0); Mean Corp Hgb Conc 32.8 g/gl (32-36); Mean Corpuscular Volume 85.3 fL (81-99); Mean Platelet Vol. 8.8 fl (6.2-12.0); Monocyte# 0.72 X10^3/uL; Monocyte% 12.7 % (0-10); Neutrophil # 3.22 X10^3/uL (2.7-7.7); Neutrophil % 56.8 % (47-70); Platelet Count 307 K/mm3 (150-450); RBC Distribution Width CV 13.7 % (11.6-14.6); RBC Distribution Width SD 42.5 fl (35.1-43.9); Red Blood Count 3.54 M/mm3 (4.2-5.4); White Blood Count 5.7 K/mm3 (4.4-11.0)
[2018-12-03 06:34] LABS: POSITIVE COUNT NO; POSITIVE DIFFERENTIAL NO; POSITIVE MORPHOLOGY NO
[2018-12-03 06:43] LABS: Anion Gap 10 (5-15); BUN 5 mg/dL (7-18); BUN/Creat Ratio 9.4 RATIO (10-20); Chloride 107 mmol/L (98-107); Creatinine, Serum 0.53 mg/dL (0.55-1.02); EST Glomerular Filtration Rate 126 mL/min (>60); Est Glom Filt Rate - Afr Amer 153 mL/min (>60); Estimated Creatinine Clearance 101.13 ml/min; Glucose 105 mg/dL (74-106); Magnesium 1.8 mg/dL (1.6-2.6); Sodium Level 141 mmol/L (136-145)
--- NOTE | 2018-12-03 07:00 | OP.ENDO_ITS ---
12/03/2018 Marito Zavala [address] [place] [address] Re : Upper GI endoscopy procedure for Devika Champion Dear Dr. Zavala This procedure was performed on November. My impressions and recommendations are as follows: Impressions : - Z-line variable, 38 cm from the incisors. - Small hiatal hernia. - Erythematous mucosa in the antrum. Biopsied. - Normal examined duodenum. Biopsied. Recommendations : - [facility]. - Advance diet as tolerated. - Continue present medications. - Telephone my office for pathology results in 1 week. Findings suggest some mild reflux esophagitis and possible bile reflux gastritis. My findings are described in the full procedure note, which is enclosed. If I can be of further assistance, please feel free to contact me at Doctor phone number(s): Work: . Sincerely, Alexander Nam MD 12/03/2018 6:59:47 AM This report has been signed electronically.
--- NOTE | 2018-12-03 07:05 | OP.ENDO_ITS ---
12/03/2018 Marito Zavala [address] [place] [address] Re : Colonoscopy procedure for Devika Eubanksace Dear Dr. Zavala This procedure was performed on November. My impressions and recommendations are as follows: Impressions : - Acute surgical changes of recent surgical hemorrhoidectomy with appropriate healing found on examination. - Diverticulosis in the sigmoid colon. - Pseudomembranous enterocolitis--entire colon - Mucosal ulceration--entire colon. Navarro-colonic biopsies obtained. Recommendations : - [facility] care. - Advance diet as tolerated. - Continue present medications. - Repeat colonoscopy in 5 years for surveillance based on pathology results. - Telephone my office for pathology results in 1 week. My findings are described in the full procedure note, which is enclosed. If I can be of further assistance, please feel free to contact me at Doctor phone number(s): Work: . Sincerely, Alexander Nam MD 12/03/2018 7:05:10 AM This report has been signed electronically.
[2018-12-03] MEDS: Dicyclomine 10 MG Capsule 20 MG PO ×2 (08:31→10:48)
[2018-12-03] MEDS: Lactated Ringers 1,000 ML 100 ML IV (09:44)
[2018-12-03] MEDS: Ciprofloxacin 400 MG/200 ML BAG 200 MG IV ×2 (09:44→22:56)
[2018-12-03] MEDS: Pantoprazole Sodium 40 MG Tablet PO (09:45)
[2018-12-03] MEDS: Enoxaparin 40 MG/0.4 ML Syringe SC (09:45)
[2018-12-03] MEDS: Sucralfate 1 GM Tablet PO ×3 (11:59→22:56)
--- NOTE | 2018-12-03 13:57 | PCM.PN.BLA ---
Progress Note Today's upper and lower endoscopy suspicious for possible mild bile reflux gastritis and reflux esophagitis. Biopsies are pending. 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 Random biopsies are pending. The patient already is on ciprofloxacin and metronidazole. After discussion I elected to initiate steroid treatment. This afternoon the patient states that her nausea is not improved and she is generally feeling better. I will advance her diet to full liquids. Depending on her ability to stay hydrated and taking nourishment she may be able be discharged tomorrow. We should have biopsy results tomorrow as well. Alexander Nam M.D., F.A.C.S.
--- NOTE | 2018-12-03 14:20 | CASEMGMT ---
RN CM ADMISSIONS COUNSELOR CM to room to meet with patient for initial transition planning/care coordination assessment. RN BILLY introduced self and role at [facility]. Pt voices understanding and consents to assessment at this time. Pt resting in bed in no distress at this time. Pt is A/O at this time and answers all questions appropriately. Care providers, pharmacy, and demographics verified/updated at this time. PCP: Dr Marito Zavala Specialists: Dr Viv Schultz [facility]acy: [facility] Insurance: [employer] Prescription Benefit: Yes Living Will/HPOA: Has both LW and HCPOA, who is her daughter, Alaina Alvarez LNOK: Daughter, Alaina Living Arrangements: Lives alone in one-story home. Independent. Transportation: Pt states drives self and states no transportation concerns at this time. DME: Denies using any DME and denies needs. HHC/SNF: No history of either. Denies needs and no needs identified. Pt wishes to return home and states has no concerns with going home at time of discharge. 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 States she is planning on talking to [facility] financial services re: her bill and making payments. CM to follow for any discharge planning/needs. Pt voices no further concerns/needs at this time. Advised pt to ask for CM if any further questions/concerns/needs arise. Voices understanding. PLAN: Home Dominguez BERRY RN, CM
--- NOTE | 2018-12-03 14:25 | CASEMGMT ---
RN CM VASCULAR TECHNOLOGIST CM to room to meet with patient for initial transition planning/care coordination assessment. RN BILLY introduced self and role at [facility]. Pt voices understanding and consents to assessment at this time. Pt resting in bed in no distress at this time. Pt is A/O at this time and answers all questions appropriately. Care providers, pharmacy, and demographics verified/updated at this time. PCP: Dr Marito Zavala Specialists: Dr Viv Schultz [facility]: [facility] Insurance: [employer] Prescription Benefit: Yes Living Will/HPOA: Has both LW and HCPOA, who is her daughter, Alaina Alvarez LNOK: Daughter, Alaina Living Arrangements: Lives alone in one-story home. Independent. Transportation: Pt states drives self and states no transportation concerns at this time. DME: Denies using any DME and denies needs. HHC/SNF: No history of either. Denies needs and no needs identified. Pt wishes to return home and states has no concerns with going home at time of discharge. 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 States this has been a lot of extra stress on her and she is trying to figure out what her next step will be re: a job/income. Discussed stressors with pt and she voiced concerns with hospital bill. She is planning on talking to [facility] financial services re: her bill and making payments. CM to follow for any discharge planning/needs. Pt voices no further concerns/needs at this time. Advised pt to ask for CM if any further questions/concerns/needs arise. Voices understanding. PLAN: Home Dominguez BERRY RN, CM
--- NOTE | 2018-12-03 15:58 | PCM.PN.HOSP ---
Patient Problems: Active and Suspected Problems (Last Reviewed 12/01/18 @ 04:37 by Ramón Linares MD) Colitis (Acute) Diarrhea (Acute) Nausea (Acute) Subjective: still with abdominal pain. diffuse colitis. Vitals/I&O's: Vital Signs Temp Pulse Resp BP Pulse Ox 37.3 C 109 H 16 127/60 H 96 12/03/18 14:00 12/03/18 14:00 12/03/18 14:00 12/03/18 14:00 12/03/18 14:00 Oxygen Delivery Method Room Air Weight: 72.4 kg Body Mass Index (BMI) 27.3 Intake and Output for Last 24 Hours 12/01/18 12/02/18 12/03/18 23:59 23:59 23:59 Intake Total 2262 / 2262 4937 / 4937 3064 / 3064 Output Total 1200 / 1200 900 / 900 Balance 2262 / 2262 3737 / 3737 2164 / 2164 General: Alert, No apparent distress HEENT: Atraumatic, PERRLA Neck: No Nodes, Thyroid Normal Size and Texture Lungs: Clear to auscultation, Normal air movement, No rhonchi, No wheeze Cardiovascular: Regular rate, Regular Rhythm, Normal S1, Normal S2, No murmurs Abdomen: Bowel Sounds Present, Soft, Non Tender, Non-Distended, Hyperactive Bowel Sounds Extremities: No edema, No Calf Tenderness Skin: No rashes, No breakdown Musculoskeletal: No Tenderness to Palpation of Joints or Extremities, No Muscle Wasting Psych/Mental Status: Normal Affect, Appropriate Microbiology Past 72 Hours 11/30/18 19:27 Blood Culture (Wb) - Anticubital Right Blood Culture - Preliminary No growth in 48 hours. 11/30/18 19:55 Blood Culture (Wb) - Right Hand Blood Culture - Preliminary No growth in 48 hours. Laboratory Results 12/03/18 06:20: WBC 5.7, RBC 3.54 L, Hgb 9.9 L, Hct 30.2 L, MCV 85.3, MCH 28.0, MCHC 32.8, RDW 13.7, RDW Differential 42.5, Plt Count 307, MPV 8.8, Immature Gran % (Auto) 1.400 H, Neut % (Auto) 56.8, Lymph % (Auto) 24.0, [place] % (Auto) 12.7 H, Eos % (Auto) 4.2, Baso % (Auto) 0.9, Absolute Neuts (auto) 3.2, Absolute Lymphs (auto) 1.36, Total Counted Not Reportable 12/03/18 06:20: Sodium 141, Potassium 3.0 L, Chloride 107, Carbon Dioxide 24.0, Anion Gap 10, BUN 5 L, Creatinine 0.53 L, Estim Creat Clear Calc 101.13, Est GFR (MDRD) Af Amer 153, Est GFR (MDRD) Non-Af 126, BUN/Creatinine Ratio 9.4 L, Glucose 105, Calcium 8.0 L, Magnesium 1.8 Current Medications Acetaminophen (Tylenol) 650 mg PO Q6H PRN PRN PRN Reason: Mild pain 1-3/Temp > 100.7 F Dextrose (D50w Syringe) 0 gm IV X1 PRN; Protocol PRN Reason: Hypoglycemia Dicyclomine HCl (Bentyl) 20 mg PO 0600,1000,1500 [facility] Last Admin: 12/03/18 14:30 Dose: Not Given Enoxaparin Sodium (Lovenox) 40 mg SC DAILY@1000 [facility] Last Admin: 12/03/18 09:45 Dose: 40 mg Fluconazole (Fluconazole) 150 mg PO X1 PRN PRN Reason: yeast infection Last Admin: 12/02/18 06:39 Dose: 150 mg Glucagon () 1 mg IM .X1 PRN PRN Reason: Hypoglycemia Lactated Ringer's () 1,000 mls @ 100 mls/hr IV .Q10H [facility] Last Admin: 12/03/18 09:44 Dose: 100 mls/hr Ciprofloxacin (Cipro) 400 mg in 200 mls @ 200 mls/hr IV Q12 [facility] Last Admin: 12/03/18 09:44 Dose: 200 mls/hr Metronidazole (Flagyl) 500 mg in 100 mls @ 100 mls/hr IV Q8 [facility] Last Admin: 12/03/18 14:16 Dose: 100 mls/hr Levothyroxine Sodium (Synthroid) 50 mcg PO DAILY@0600 [facility] Last Admin: 12/03/18 05:30 Dose: Not Given Melatonin (Melatonin) 3 mg PO QHS PRN PRN PRN Reason: INSOMNIA Methylprednisolone (Solu-Medrol) 40 mg IV BID [facility] Last Admin: 12/03/18 09:45 Dose: 40 mg Nutritional Formula (Lactose Free) (Ensure Clear) 120 ml PO 4X/DAY [facility] Last Admin: 12/03/18 14:59 Dose: Not Given Ondansetron HCl (Zofran) 4 mg IV Q6H PRN PRN PRN Reason: NAUSEA/VOMITING Last Admin: 12/02/18 14:02 Dose: 4 mg Pantoprazole Sodium (Protonix) 40 mg PO DAILY [facility] Last Admin: 12/03/18 09:45 Dose: 40 mg Promethazine HCl (Phenergan) 12.5 mg IV Q6H PRN PRN PRN Reason: NAUSEA/VOMITING Last Admin: 12/02/18 15:36 Dose: 12.5 mg Sodium Chloride () 5 - 15 ml IV UD PRN PRN Reason: SALINE FLUSH Last Admin: 12/01/18 18:04 Dose: 10 ml Sucralfate (Carafate) 1 gm PO 1HR_ACHS [facility] Last Admin: 12/03/18 11:59 Dose: 1 gm Vitamin A/Vitamin D (A & D) 1 applic TOPICAL TID [facility]; Protocol Last Admin: 12/03/18 14:20 Dose: 1 applic Medical Necessity - Tobacco Use Smoking Status: Never smoker Assessment/Plan All Active Problems (Last Reviewed 12/01/18 @ 04:37 by Ramón Linares MD) Colitis (Acute) Diarrhea (Acute) Nausea (Acute) Internal bleeding hemorrhoids (Acute) 1. acute colitis ischemic v infectious v inflammatory start empiric abx with cipro and metronidazole JAZLYN Nam, with diffuse inflammation, failure to progress despite abx, to start steroids DC NSAIDs Will need outpt GI evaluation. 2. VTE proph: LMWH Greater than 35 minutes, of which greater than 50% of the time was discussing colitis, treatment for IBD and monitoring. Code Visit Inpatient E&M: 73537 Subs Hosp L3
--- NOTE | 2018-12-03 16:05 | PN_ITS ---
Patient Problems: Active and Suspected Problems (Last Reviewed 12/01/18 @ 04:37 by Ramón Linares MD) Colitis (Acute) Diarrhea (Acute) Nausea (Acute) Subjective: still with abdominal pain. diffuse colitis. Vitals/I&O's: Vital Signs Temp Pulse Resp BP Pulse Ox 37.3 C 109 H 16 127/60 H 96 12/03/18 14:00 12/03/18 14:00 12/03/18 14:00 12/03/18 14:00 12/03/18 14:00 Oxygen Delivery Method Room Air Weight: 72.4 kg Body Mass Index (BMI) 27.3 Intake and Output for Last 24 Hours 12/01/18 12/02/18 12/03/18 23:59 23:59 23:59 Intake Total 2262 / 2262 4937 / 4937 3064 / 3064 Output Total 1200 / 1200 900 / 900 Balance 2262 / 2262 3737 / 3737 2164 / 2164 General: Alert, No apparent distress HEENT: Atraumatic, PERRLA Neck: No Nodes, Thyroid Normal Size and Texture Lungs: Clear to auscultation, Normal air movement, No rhonchi, No wheeze Cardiovascular: Regular rate, Regular Rhythm, Normal S1, Normal S2, No murmurs Abdomen: Bowel Sounds Present, Soft, Non Tender, Non-Distended, Hyperactive Bowel Sounds Extremities: No edema, No Calf Tenderness Skin: No rashes, No breakdown Musculoskeletal: No Tenderness to Palpation of Joints or Extremities, No Muscle Wasting Psych/Mental Status: Normal Affect, Appropriate Microbiology Past 72 Hours 11/30/18 19:27 Blood Culture (Wb) - Anticubital Right Blood Culture - Preliminary No growth in 48 hours. 11/30/18 19:55 Blood Culture (Wb) - Right Hand Blood Culture - Preliminary No growth in 48 hours. Laboratory Results 12/03/18 06:20: WBC 5.7, RBC 3.54 L, Hgb 9.9 L, Hct 30.2 L, MCV 85.3, MCH 28.0, MCHC 32.8, RDW 13.7, RDW Differential 42.5, Plt Count 307, MPV 8.8, Immature Gran % (Auto) 1.400 H, Neut % (Auto) 56.8, Lymph % (Auto) 24.0, [place] % (Auto) 12.7 H, Eos % (Auto) 4.2, Baso % (Auto) 0.9, Absolute Neuts (auto) 3.2, Absolute Lymphs (auto) 1.36, Total Counted Not Reportable 12/03/18 06:20: Sodium 141, Potassium 3.0 L, Chloride 107, Carbon Dioxide 24.0, Anion Gap 10, BUN 5 L, Creatinine 0.53 L, Estim Creat Clear Calc 101.13, Est GFR (MDRD) Af Amer 153, Est GFR (MDRD) Non-Af 126, BUN/Creatinine Ratio 9.4 L, Glucose 105, Calcium 8.0 L, Magnesium 1.8 Current Medications Acetaminophen (Tylenol) 650 mg PO Q6H PRN PRN PRN Reason: Mild pain 1-3/Temp > 100.7 F Dextrose (D50w Syringe) 0 gm IV X1 PRN; Protocol PRN Reason: Hypoglycemia Dicyclomine HCl (Bentyl) 20 mg PO 0600,1000,1500 [facility] Last Admin: 12/03/18 14:30 Dose: Not Given Enoxaparin Sodium (Lovenox) 40 mg SC DAILY@1000 [facility] Last Admin: 12/03/18 09:45 Dose: 40 mg Fluconazole (Fluconazole) 150 mg PO X1 PRN PRN Reason: yeast infection Last Admin: 12/02/18 06:39 Dose: 150 mg Glucagon () 1 mg IM .X1 PRN PRN Reason: Hypoglycemia Lactated Ringer's () 1,000 mls @ 100 mls/hr IV .Q10H [facility] Last Admin: 12/03/18 09:44 Dose: 100 mls/hr Ciprofloxacin (Cipro) 400 mg in 200 mls @ 200 mls/hr IV Q12 [facility] Last Admin: 12/03/18 09:44 Dose: 200 mls/hr Metronidazole (Flagyl) 500 mg in 100 mls @ 100 mls/hr IV Q8 [facility] Last Admin: 12/03/18 14:16 Dose: 100 mls/hr Levothyroxine Sodium (Synthroid) 50 mcg PO DAILY@0600 [facility] Last Admin: 12/03/18 05:30 Dose: Not Given Melatonin (Melatonin) 3 mg PO QHS PRN PRN PRN Reason: INSOMNIA Methylprednisolone (Solu-Medrol) 40 mg IV BID [facility] Last Admin: 12/03/18 09:45 Dose: 40 mg Nutritional Formula (Lactose Free) (Ensure Clear) 120 ml PO 4X/DAY [facility] Last Admin: 12/03/18 14:59 Dose: Not Given Ondansetron HCl (Zofran) 4 mg IV Q6H PRN PRN PRN Reason: NAUSEA/VOMITING Last Admin: 12/02/18 14:02 Dose: 4 mg Pantoprazole Sodium (Protonix) 40 mg PO DAILY [facility] Last Admin: 12/03/18 09:45 Dose: 40 mg Promethazine HCl (Phenergan) 12.5 mg IV Q6H PRN PRN PRN Reason: NAUSEA/VOMITING Last Admin: 12/02/18 15:36 Dose: 12.5 mg Sodium Chloride () 5 - 15 ml IV UD PRN PRN Reason: SALINE FLUSH Last Admin: 12/01/18 18:04 Dose: 10 ml Sucralfate (Carafate) 1 gm PO 1HR_ACHS [facility] Last Admin: 12/03/18 11:59 Dose: 1 gm Vitamin A/Vitamin D (A & D) 1 applic TOPICAL TID [facility]; Protocol Last Admin: 12/03/18 14:20 Dose: 1 applic Medical Necessity - Tobacco Use Smoking Status: Never smoker Assessment/Plan All Active Problems (Last Reviewed 12/01/18 @ 04:37 by Ramón Linares MD) Colitis (Acute) Diarrhea (Acute) Nausea (Acute) Internal bleeding hemorrhoids (Acute) 1. acute colitis * ischemic v infectious v inflammatory * start empiric abx with cipro and metronidazole * JAZLYN Nam, with diffuse inflammation, failure to progress despite abx, to start steroids * DC NSAIDs * Will need outpt GI evaluation. 2. VTE proph: LMWH Greater than 35 minutes, of which greater than 50% of the time was discussing colitis, treatment for IBD and monitoring. Code Visit Inpatient E&M: 07917 Subs Hosp L3
[2018-12-03] MEDS: 0.9% NaCl Peripheral Flush Adult/Peds IV (23:45)
[2018-12-04] MEDS: Lactated Ringers 1,000 ML 100 ML IV (02:05)
[2018-12-04 04:06] VITALS: BP 105/54; PULSE 93; RESP 16; TEMP 36.4; O2SAT 94
[2018-12-04] MEDS: Dicyclomine 10 MG Capsule 20 MG PO ×2 (05:55→08:42)
[2018-12-04] MEDS: Vitamins A and D Ointment 1 APPLIC TOPICAL ×2 (05:55→11:43)
[2018-12-04] MEDS: Levothyroxine 50 MCG Tablet PO (05:55)
--- NOTE | 2018-12-04 05:57 | PN.SURG_ITS ---
Patient Problems: Active and Suspected Problems (Last Reviewed 12/01/18 @ 04:37 by Ramón Linares MD) Colitis (Acute) Diarrhea (Acute) Nausea (Acute) Subjective: Pt now recalls that she started taking large doses of naproxen (aleve) for hip pain Today feels better except couldnt sleep and palpitations from large dose methylprednisolone - Physical Exam Abdomen: Soft, Non Tender Vital Signs Temp Pulse Resp BP Pulse Ox 97.6 F L 93 16 105/54 L 94 12/04/18 04:06 12/04/18 04:06 12/04/18 04:06 12/04/18 04:06 12/04/18 04:06 Oxygen Delivery Method Room Air Weight: 159 lb 9.835 oz Body Mass Index (BMI) 27.3 Intake and Output for Last 24 Hours 12/02/18 12/03/18 12/04/18 23:59 23:59 23:59 Intake Total 4937 / 4937 4893 / 4893 618 / 618 Output Total 1200 / 1200 1700 / 1700 700 / 700 Balance 3737 / 3737 3193 / 3193 -82 / -82 Microbiology Past 72 Hours 11/30/18 19:27 Blood Culture - Preliminary Blood Culture (Wb) - Anticubital Right No growth in 48 hours. 11/30/18 19:55 Blood Culture - Preliminary Blood Culture (Wb) - Right Hand No growth in 48 hours. Laboratory Tests Past 24 Hrs 12/03/18 12/03/18 06:20 06:20 WBC 5.7 RBC 3.54 L Hgb 9.9 L Hct 30.2 L MCV 85.3 MCH 28.0 MCHC 32.8 RDW 13.7 RDW Differential 42.5 Plt Count 307 MPV 8.8 Immature Gran % (Auto) 1.400 H Neut % (Auto) 56.8 Lymph % (Auto) 24.0 [place] % (Auto) 12.7 H Eos % (Auto) 4.2 Baso % (Auto) 0.9 Absolute Neuts (auto) 3.2 Absolute Lymphs (auto) 1.36 Total Counted Not Reportable Sodium 141 Potassium 3.0 L Chloride 107 Carbon Dioxide 24.0 Anion Gap 10 BUN 5 L Creatinine 0.53 L Estim Creat Clear Calc 101.13 Est GFR (MDRD) Af Amer 153 Est GFR (MDRD) Non-Af 126 BUN/Creatinine Ratio 9.4 L Glucose 105 Calcium 8.0 L Magnesium 1.8 Medical Necessity - Tobacco Use Smoking Status: Never smoker Assessment/Plan All Active Problems (Last Reviewed 12/01/18 @ 04:37 by Ramón Linares MD) Colitis (Acute) Diarrhea (Acute) Nausea (Acute) Internal bleeding hemorrhoids (Acute) REC: Await bx results but I expect ischemic colitis Stop IV steroids--I wrote for a oral dose but will differ to medicine as to whether she now has to continue a taper Home on oral Ab Sent single dose diflucan to pharmacy at pt request
[2018-12-04] MEDS: Sucralfate 1 GM Tablet PO ×2 (06:03→11:43)
[2018-12-04] MEDS: 0.9% NaCl Peripheral Flush Adult/Peds IV ×2 (06:03→07:26)
[2018-12-04 08:38] VITALS: BP 116/67; PULSE 94; RESP 18; TEMP 36.9; O2SAT 97
[2018-12-04] MEDS: MethylPREDNISolone 4 MG Tablet PO (08:41)
[2018-12-04] MEDS: Ciprofloxacin 400 MG/200 ML BAG 200 MG IV (08:42)
[2018-12-04] MEDS: Enoxaparin 40 MG/0.4 ML Syringe SC (08:43)
[2018-12-04] MEDS: Pantoprazole Sodium 40 MG Tablet PO (08:43)
--- NOTE | 2018-12-04 12:02 | DCINST_ITS ---
- Discharge Diagnoses Current Active Problems: Current Active and Chronic Problems (Last Reviewed 12/01/18 @ 04:37 by Ramón Linares MD) Colitis (Acute) Diarrhea (Acute) Nausea (Acute) You will use the following diet at home:: No restrictions Your food should be the consistency of: Regular Discharge Activity: Return to Normal Activity Call your doctor if you observe: - - worsening abdominal pain. Allergies/Adverse Reactions: Allergies azithromycin [From Zithromax Z-Del] Adverse Reaction (Verified 11/30/18 17:02) Vomiting codeine Adverse Reaction (Verified 11/30/18 17:02) Vomiting naproxen [From Naprosyn] Adverse Reaction (Verified 12/04/18 11:59) Other Suspected colitis Sulfa (Sulfonamide Antibiotics) Adverse Reaction (Verified 11/30/18 17:02) Vomiting PROBIOTICS Allergy (Uncoded 11/30/18 17:02) Other BOILS Medications to take at Discharge Diphenoxylate HCl/Atropine [Lomotil 2.5-0.025 mg Tablet] 1 tab PO TID 11/30/18 Levothyroxine [Synthroid] 50 mcg PO DAILY 11/30/18 Vits A and D/White Pet/Lanolin [Vitamin A and D Ointment] 1 applic TP TID 11/30/18 Ciprofloxacin [Cipro] 500 mg PO BID #10 tablet 12/03/18 Metronidazole [Flagyl] 500 mg PO Q8H #15 tablet 12/03/18 Pantoprazole Sodium [Protonix] 40 mg PO DAILY #30 tablet 12/03/18 Prednisone 20 mg PO DAILY #14 tablet 12/03/18 Sucralfate [Carafate] 1 gm PO 4X/DAY 30 Days #120 tablet 12/03/18 Acetaminophen [Tylenol Tablet] 650 mg PO Q6H PRN PRN tablet 12/04/18 Fluconazole [Diflucan] 100 mg PO X1 #1 tablet 12/04/18 The following prescriptions were given: Fluconazole [Diflucan] 100 mg PO X1 #1 tablet Metronidazole [Flagyl] 500 mg PO Q8H #15 tablet Pantoprazole Sodium [Protonix] 40 mg PO DAILY #30 tablet Prednisone 20 mg PO DAILY #14 tablet Ciprofloxacin [Cipro] 500 mg PO BID #10 tablet Sucralfate [Carafate] 1 gm PO 4X/DAY 30 Days #120 tablet Primary Care Physician: Marito Zavala MD [Primary Care Provider] - Within 2 Weeks Test Results: Test results from this visit will be discussed in further detail at your follow- up appointment, if applicable. Please Follow Up With: Alexander Nam MD When: 1-2 weeks Proposed Discharge Date: 12/04/18
--- NOTE | 2018-12-04 12:02 | PCM.DC.SUM ---
Discharge Date and Diagnosis - Problem List Patient Problems: Active and Suspected Problems (Last Reviewed 12/01/18 @ 04:37 by Ramón Linares MD) Colitis (Acute) Diarrhea (Acute) Nausea (Acute) Date of Admission: 12/01/18 Date of Discharge: 12/04/18 - Primary Discharge Diagnosis Active and Suspected Problems (Last Reviewed 12/01/18 @ 04:37 by Ramón Linares MD) Colitis (Acute) Diarrhea (Acute) Nausea (Acute) 1. acute colitis improved recently started high-dose Naprosyn (1000mg/day), therefore could be NSAID-induced colitis I discussed with the patient that this could be the case, but not 100% definitive. It still could be another cause: ischemic v infectious v inflammatory Continue with ciprofloxacin, metronidazole, prednisone Follow up with Dr. Nam DC NSAIDs Hospital Course and Treatment Operations: None, cholecystecomy Procedures: Colonoscopy, EGD Summary of Care Provided: The patient is a 58 year old F is with diarrhea, nausea and vomiting. Patient recently had hemorrhoid surgery and prior to that was taking a higher dose of Naprosyn, patient was taking roughly 1000 mg/day. Patient presented here and had diffuse colitis on CAT scan. Colonoscopy performed showed diffuse colitis and friable tissue. Patient later told us that she was taking these high doses of Naprosyn. Apparently, NSAIDs can cause colitis. The patient will continue with prednisone, ciprofloxacin and metronidazole. Patient instructed to stop Naprosyn and not to take any NSAIDs. Patient informed that this is not confirmed that the Naprosyn was the cause of this but certainly given the timing of her symptoms and with the timing of her high-dose Naprosyn, it could be the etiology. Patient will be following up with Dr. Nam in about a week's time to follow-up on the biopsy results that were performed on the . [] Patient Problems: Active and Suspected Problems (Last Reviewed 12/01/18 @ 04:37 by Ramón Linares MD) Colitis (Acute) Diarrhea (Acute) Nausea (Acute) - Physical Exam General: Alert, No apparent distress HEENT: Atraumatic, Normocephalic Oral: Moist Mucosa, No Gingival or Mucosal Lesions/ Ulcerations Neck: No Nodes, Thyroid Normal Size and Texture Lungs: Clear to auscultation, Normal air movement, No rhonchi, No wheeze Cardiovascular: Regular rate, Regular Rhythm, Normal S1, Normal S2, No murmurs Abdomen: Bowel Sounds Present, Soft, Non Tender, Non-Distended, No Hepato-splenomegaly Extremities: No edema, No Calf Tenderness Vital Signs Temp Pulse Resp BP Pulse Ox 36.9 C 94 18 116/67 97 12/04/18 08:38 12/04/18 08:38 12/04/18 08:38 12/04/18 08:38 12/04/18 08:38 Oxygen Delivery Method Room Air Weight: 72.4 kg Body Mass Index (BMI) 27.3 Intake and Output for Last 24 Hours 12/02/18 12/03/18 12/04/18 23:59 23:59 23:59 Intake Total 4937 / 4937 4893 / 4893 1108 / 1108 Output Total 1200 / 1200 1700 / 1700 700 / 700 Balance 3737 / 3737 3193 / 3193 408 / 408 Microbiology Past 72 Hours 11/30/18 19:27 Blood Culture - Preliminary Blood Culture (Wb) - Anticubital Right No growth in 48 hours. 11/30/18 19:55 Blood Culture - Preliminary Blood Culture (Wb) - Right Hand No growth in 48 hours. Discharge Diet: No Restrictions Discharge Activity: Return to Normal Activity Call your doctor if you observe: - - worsening abdominal pain. Home Medications: Medications to take at Discharge Diphenoxylate HCl/Atropine [Lomotil 2.5-0.025 mg Tablet] 1 tab PO TID 11/30/18 Levothyroxine [Synthroid] 50 mcg PO DAILY 11/30/18 Vits A and D/White Pet/Lanolin [Vitamin A and D Ointment] 1 applic TP TID 11/30/18 Ciprofloxacin [Cipro] 500 mg PO BID #10 tablet 12/03/18 Metronidazole [Flagyl] 500 mg PO Q8H #15 tablet 12/03/18 Pantoprazole Sodium [Protonix] 40 mg PO DAILY #30 tablet 12/03/18 Prednisone 20 mg PO DAILY #14 tablet 12/03/18 Sucralfate [Carafate] 1 gm PO 4X/DAY 30 Days #120 tablet 12/03/18 Acetaminophen [Tylenol Tablet] 650 mg PO Q6H PRN PRN tablet 12/04/18 Fluconazole [Diflucan] 100 mg PO X1 #1 tablet 12/04/18 Following Prescrptions Were Given to Patient: Fluconazole [Diflucan] 100 mg PO X1 #1 tablet Metronidazole [Flagyl] 500 mg PO Q8H #15 tablet Pantoprazole Sodium [Protonix] 40 mg PO DAILY #30 tablet Prednisone 20 mg PO DAILY #14 tablet Ciprofloxacin [Cipro] 500 mg PO BID #10 tablet Sucralfate [Carafate] 1 gm PO 4X/DAY 30 Days #120 tablet Primary Care Physician: Marito Zavala MD [Primary Care Provider] - Within 2 Weeks Please Follow Up With: Alexander Nam MD When: 1-2 weeks Disposition: Home Minutes spent on discharge:: 32 Patient Condition:: Good Medical Necessity - Tobacco Use Smoking Status: Never smoker Meaningful Use Info Meaningful Use Diagnoses (Choose all that apply): None applicable Code Visit Inpatient E&M: 96511 Disch Hosp
--- NOTE | 2018-12-04 12:07 | DS.PCM_ITS ---
Discharge Date and Diagnosis - Problem List Patient Problems: Active and Suspected Problems (Last Reviewed 12/01/18 @ 04:37 by Ramón Linares MD) Colitis (Acute) Diarrhea (Acute) Nausea (Acute) Date of Admission: 12/01/18 Date of Discharge: 12/04/18 - Primary Discharge Diagnosis Active and Suspected Problems (Last Reviewed 12/01/18 @ 04:37 by Ramón Linares MD) Colitis (Acute) Diarrhea (Acute) Nausea (Acute) 1. acute colitis * improved recently started high-dose Naprosyn (1000mg/day), therefore could be NSAID-induced colitis * I discussed with the patient that this could be the case, but not 100% definitive. It still could be another cause: ischemic v infectious v inflammatory * Continue with ciprofloxacin, metronidazole, prednisone * Follow up with Dr. Nam * DC NSAIDs Hospital Course and Treatment Operations: None, cholecystecomy Procedures: Colonoscopy, EGD Summary of Care Provided: The patient is a 58 year old F is with diarrhea, nausea and vomiting. Patient recently had hemorrhoid surgery and prior to that was taking a higher dose of Naprosyn, patient was taking roughly 1000 mg/day. Patient presented here and had diffuse colitis on CAT scan. Colonoscopy performed showed diffuse colitis and friable tissue. Patient later told us that she was taking these high doses of Naprosyn. Apparently, NSAIDs can cause colitis. The patient will continue with prednisone, ciprofloxacin and metronidazole. Patient instructed to stop Naprosyn and not to take any NSAIDs. Patient informed that this is not c onfirmed that the Naprosyn was the cause of this but certainly given the timing of her symptoms and with the timing of her high-dose Naprosyn, it could be the etiology. Patient will be following up with Dr. Nam in about a week's time to follow-up on the biopsy results that were performed on the . [] Patient Problems: Active and Suspected Problems (Last Reviewed 12/01/18 @ 04:37 by Ramón Linares MD) Colitis (Acute) Diarrhea (Acute) Nausea (Acute) - Physical Exam General: Alert, No apparent distress HEENT: Atraumatic, Normocephalic Oral: Moist Mucosa, No Gingival or Mucosal Lesions/ Ulcerations Neck: No Nodes, Thyroid Normal Size and Texture Lungs: Clear to auscultation, Normal air movement, No rhonchi, No wheeze Cardiovascular: Regular rate, Regular Rhythm, Normal S1, Normal S2, No murmurs Abdomen: Bowel Sounds Present, Soft, Non Tender, Non-Distended, No Hepato- splenomegaly Extremities: No edema, No Calf Tenderness Vital Signs Temp Pulse Resp BP Pulse Ox 36.9 C 94 18 116/67 97 12/04/18 08:38 12/04/18 08:38 12/04/18 08:38 12/04/18 08:38 12/04/18 08:38 Oxygen Delivery Method Room Air Weight: 72.4 kg Body Mass Index (BMI) 27.3 Intake and Output for Last 24 Hours 12/02/18 12/03/18 12/04/18 23:59 23:59 23:59 Intake Total 4937 / 4937 4893 / 4893 1108 / 1108 Output Total 1200 / 1200 1700 / 1700 700 / 700 Balance 3737 / 3737 3193 / 3193 408 / 408 Microbiology Past 72 Hours 11/30/18 19:27 Blood Culture - Preliminary Blood Culture (Wb) - Anticubital Right No growth in 48 hours. 11/30/18 19:55 Blood Culture - Preliminary Blood Culture (Wb) - Right Hand No growth in 48 hours. Discharge Diet: No Restrictions Discharge Activity: Return to Normal Activity Call your doctor if you observe: - - worsening abdominal pain. Home Medications: Medications to take at Discharge Diphenoxylate HCl/Atropine [Lomotil 2.5-0.025 mg Tablet] 1 tab PO TID 11/30/18 Levothyroxine [Synthroid] 50 mcg PO DAILY 11/30/18 Vits A and D/White Pet/Lanolin [Vitamin A and D Ointment] 1 applic TP TID 11/30/18 Ciprofloxacin [Cipro] 500 mg PO BID #10 tablet 12/03/18 Metronidazole [Flagyl] 500 mg PO Q8H #15 tablet 12/03/18 Pantoprazole Sodium [Protonix] 40 mg PO DAILY #30 tablet 12/03/18 Prednisone 20 mg PO DAILY #14 tablet 12/03/18 Sucralfate [Carafate] 1 gm PO 4X/DAY 30 Days #120 tablet 12/03/18 Acetaminophen [Tylenol Tablet] 650 mg PO Q6H PRN PRN tablet 12/04/18 Fluconazole [Diflucan] 100 mg PO X1 #1 tablet 12/04/18 Following Prescrptions Were Given to Patient: Fluconazole [Diflucan] 100 mg PO X1 #1 tablet Metronidazole [Flagyl] 500 mg PO Q8H #15 tablet Pantoprazole Sodium [Protonix] 40 mg PO DAILY #30 tablet Prednisone 20 mg PO DAILY #14 tablet Ciprofloxacin [Cipro] 500 mg PO BID #10 tablet Sucralfate [Carafate] 1 gm PO 4X/DAY 30 Days #120 tablet Primary Care Physician: Marito Zavala MD [Primary Care Provider] - Within 2 Weeks Please Follow Up With: Alexander Nam MD When: 1-2 weeks Disposition: Home Minutes spent on discharge:: 32 Patient Condition:: Good Medical Necessity - Tobacco Use Smoking Status: Never smoker Meaningful Use Info Meaningful Use Diagnoses (Choose all that apply): None applicable Code Visit Inpatient E&M: 24725 Disch Hosp
[2018-12-04 15:05] VITALS: BP 118/70; PULSE 101; RESP 18; TEMP 36.8; O2SAT 95
== END 2018-12-04 15:16 | disposition home or self-care (01) | DRG 394 ==
LOC: ED 19:20 → PCU 12-01 00:04
PROVIDERS: Surgery; Admitting Provider Hospitalist; Emergency Provider Emergency Medicine; Family Provider Family Medicine; PCP Family Medicine; Referring Provider Hospitalist
PROC: 0DJD8ZZ Inspection of Lower Intestinal Tract, Via Natural or Artificial Opening Endoscopic (ICD-10-PCS; CPT 45378; principal; 2018-12-03 06:25)
DX: K52.1 Toxic gastroenteritis and colitis (principal); K55.9 Vascular disorder of intestine, unspecified; A09 Infectious gastroenteritis and colitis, unspecified; E03.9 Hypothyroidism, unspecified; R63.4 Abnormal weight loss; G35 Multiple sclerosis; Z68.27 Body mass index [BMI] 27.0-27.9, adult; K44.9 Diaphragmatic hernia without obstruction or gangrene; T39.315A Adverse effect of propionic acid derivatives, initial encounter
CPT/HCPCS: 36415; 74177; 80048; 80076; 81001; 83605; 83735; 85025; 87040; 88305; 88313; 88341; 88342; 97802; 99285; J7030; J7120; Q9967; A4216; J0744; J2405

== ENCOUNTER 2018-12-05 00:01 | Emergency (ER) | payer OTHER, SELFPAY ==
[2018-11-30 23:36] VITALS: BMI 27.3
[2018-12-05 00:02] VITALS: BP 121/67; PULSE 99; RESP 18; TEMP 37.1; O2SAT 97; BMI 28.5
[2018-12-05] MEDS: Ondansetron 4 MG/2 ML Vial IV (00:31)
[2018-12-05] MEDS: 0.9% Normal Saline 1,000 ML 125 ML IV (00:31)
[2018-12-05 00:47] LABS: Absolute Lymphocyte Count 2.19 X10^3/ul (0.83-4.51); Absolute Neutrophil Count 3.4 X10^3/uL (2.0-7.7); Basophil# 0.04 X10^3/uL; Basophil% 0.6 % (0-1); Eosinophil# 0.09 X10^3/uL; Eosinophils% 1.3 % (0-5); Hematocrit 33.2 % (37-47); Hemoglobin 11.1 g/dl (12.0-15.0); Lymphocyte # 2.19 X10^3/ul (4.0); Lymphocyte % 31.7 % (19-41); Mean Corp Hgb Conc 33.4 g/gl (32-36); Mean Corpuscular Volume 83.8 fL (81-99); Mean Platelet Vol. 9.6 fl (6.2-12.0); Monocyte# 1.01 X10^3/uL; Monocyte% 14.6 % (0-10); Neutrophil # 3.42 X10^3/uL (2.7-7.7); Neutrophil % 49.6 % (47-70); Platelet Count 412 K/mm3 (150-450); RBC Distribution Width CV 13.2 % (11.6-14.6); RBC Distribution Width SD 39.4 fl (35.1-43.9); Red Blood Count 3.96 M/mm3 (4.2-5.4); White Blood Count 6.9 K/mm3 (4.4-11.0)
[2018-12-05 00:53] LABS: ALB/GLOB Ratio 0.6 RATIO (0.9-2.4); AST(SGOT) 70 U/L (15-37); Alanine Aminotransfer ALT/SGPT 31 U/L (13-56); Albumin, Serum 2.4 g/dL (3.2-5.0); Alkaline Phosphatase 174 U/L (45-117); Anion Gap 8 (5-15); BUN 9 mg/dL (7-18); BUN/Creat Ratio 8.3 RATIO (10-20); Calcium,Total 8.2 mg/dL (8.5-10.1); Chloride 108 mmol/L (98-107); Creatinine, Serum 1.09 mg/dL (0.55-1.02); EST Glomerular Filtration Rate 55 mL/min (>60); Est Glom Filt Rate - Afr Amer 66 mL/min (>60); Estimated Creatinine Clearance 49.17 ml/min; Globulin 3.7 g/dL (2.2-4.2); Glucose 129 mg/dL (74-106); Lipase 166 U/L (73-393); Protein, Total 6.1 g/dL (6.4-8.2); Sodium Level 143 mmol/L (136-145)
[2018-12-05 00:57] LABS: Differential Indicated SCAN CRITERIA MET; POSITIVE COUNT YES; POSITIVE DIFFERENTIAL NO; POSITIVE MORPHOLOGY YES
--- NOTE | 2018-12-05 01:42 | ED.VISSUMM ---
- ER Visit Summary Date of Service: 12/05/18 Chief Complaint: [Nausea] History of Present Illness: The patient is a 58 F [presents the emergency department with nausea that started this evening. Patient states that she just finished taking her antibiotics and became very nauseated and shaky. She denies any chest pain or shortness of breath. Patient states she was just discharged earlier yesterday afternoon from the hospital after being admitted for a few days for colitis. Patient had an EGD as well as a colonoscopy at that time. Patient was sent home with Flagyl and Emilyro. Patient also started on prednisone. Patient does have a history of colitis, hypothyroidism, and anxiety. Patient denies any abdominal pain. She denies any fevers. She denies urinary symptoms.] Physical Examination: [HEENT-PERRLA, EOMI. Cranial nerves II through XII grossly intact. TMs clear. Mucous membranes moist. No adenopathy. Cardiovascular-regular rate and rhythm without murmur or ectopy Lungs-clear to auscultation, chest wall stable without crepitus or subcu emphysema Abdomen-normoactive bowel sounds, soft, nontender, no rebound or rigidity, no peritoneal signs. Extremities-intact ?4, normal range of motion, normal pulses, atraumatic] Test Results: CBC with differential obtained showing a 6.9, hemoglobin 11, hematocrit 33, platelets 412. Chemistries unremarkable other than a slightly depressed potassium at 3.0. LFTs showed a slightly elevated alk phos of 174, ALT was 31, AST was 70, lipase 166. [] Emergency Department Course and Treatment: [Patient received normal saline and was given Zofran 4 mg IV. Patient felt significantly improved. Patient refused potassium.] Treatment Plan: [Will be given a prescription for Zofran and advised to take her medications with food.] I suspect her nausea may have been triggered by the medication she was taking. Also possible patient may have had some anxiety related to this. Disposition: [Discharged home stable condition] Impression: [Nausea-resolved] This note was generated with [employer] dictation software. It may contain incorrect words, spelling, and punctuation that were not noted in review of the chart prior to signing ED Disposition - Plan for ED Patient: Referrals: Marito Zavala MD [Primary Care Provider] -
--- NOTE | 2018-12-05 01:45 | ED.DEP ---
ED Disposition - Plan for ED Patient: Instructions: ED Nausea Vomiting Prescriptions: Ondansetron [Zofran Odt] 4 mg PO Q8H PRN PRN #10 tab PRN Reason: Nausea Referrals: Marito Zavala MD [Primary Care Provider] - 3-5 Days
[2018-12-05 02:01] VITALS: BP 128/78; PULSE 81; RESP 16; O2SAT 96
[2018-12-05] MEDS: Ondansetron ODT 4 MG Tablet PO (02:07)
[2018-12-08 10:31] LABS: Pathologist Review Reviewed
== END 2018-12-05 02:08 | disposition home or self-care (01) ==
LOC: ED 00:31
PROVIDERS: Emergency Provider Emergency Medicine; Family Provider Family Medicine; PCP Family Medicine
DX: R11.0 Nausea (principal); F41.9 Anxiety disorder, unspecified; E03.9 Hypothyroidism, unspecified; Z87.19 Personal history of other diseases of the digestive system; Z79.899 Other long term (current) drug therapy
CPT/HCPCS: 80053; 83690; 85025; 96361; 96374; 99285; J7030; A4216; J2405

== ENCOUNTER → 2019-03-05 | Outpatient (CLI) | payer OTHER, SELFPAY ==
[2019-03-05 10:20] LABS: Absolute Lymphocyte Count 2.04 X10^3/uL (0.83-4.51); Absolute Neutrophil Count 1.7 X10^3/uL (2.0-7.7); Basophil# 0.06 X10^3/uL; Basophil% 1.4 % (0-1); Eosinophil# 0.12 X10^3/uL; Eosinophils% 2.8 % (0-5); Hematocrit 39.5 % (37-47); Hemoglobin 12.2 g/dL (12.0-15.0); Lymphocyte # 2.04 X10^3/ul (4.0); Lymphocyte % 48.3 % (19-41); Mean Corp Hgb Conc 30.9 g/dL (32-36); Mean Corpuscular Hgb 27.4 pg (27.0-32.0); Mean Corpuscular Volume 88.8 fL (81-99); Mean Platelet Vol. 10.1 fl (6.2-12.0); Monocyte% 7.1 % (0-10); NRBC Flagged by Analyzer 0 % (0-5); Neutrophil % 40.4 % (47-70); Platelet Count 322 K/mm3 (150-450); RBC Distribution Width CV 14.7 % (11.6-14.6); RBC Distribution Width SD 47.8 fl (35.1-43.9); Red Blood Count 4.45 M/mm3 (4.2-5.4); White Blood Count 4.2 K/mm3 (4.4-11.0)
[2019-03-05 10:45] LABS: AST(SGOT) 18 U/L (15-37); Alanine Aminotransfer ALT/SGPT 27 U/L (13-56); Albumin, Serum 3.2 g/dL (3.2-5.0); Alkaline Phosphatase 94 U/L (45-117); Anion Gap 5 (5-15); BUN 6 mg/dL (7-18); BUN/Creat Ratio 7.5 RATIO (10-20); Calcium,Total 8.7 mg/dL (8.5-10.1); Chloride 111 mmol/L (98-107); Cholesterol 213 mg/dL (200); EST Glomerular Filtration Rate 79 mL/min (>60); Est Glom Filt Rate - Afr Amer 95 mL/min (>60); Ferritin 47 ng/mL (8-252); Globulin 3.3 g/dL (2.2-4.2); Glucose 88 mg/dL (74-106); High Density Lipoprotein 43 mg/dL; Potassium 3.9 mmol/L (3.5-5.1); Protein, Total 6.5 g/dL (6.4-8.2); Sodium Level 145 mmol/L (136-145); T4 Free Direct 1.12 ng/dL (0.76-1.46); Thyroid Stim Hormone (TSH) 0.86 uIU/mL (0.358-3.74); Triglycerides 169 mg/dL; Very Low Density Lipoprotein 34 mg/dL (5-40)
[2019-03-05 11:06] LABS: Vitamin D,25 Hydroxy 28.9 ng/mL (29.95-100.01)
== END | disposition home or self-care (01) ==
LOC: MFPLAB 08:21
PROVIDERS: Family Provider Family Medicine; PCP Family Medicine; Referring Provider Family Medicine; Visit Provider Family Medicine
DX: Z00.00 Encounter for general adult medical examination without abnormal findings (principal); E03.9 Hypothyroidism, unspecified; E55.9 Vitamin D deficiency, unspecified; G35 Multiple sclerosis
CPT/HCPCS: 36415; 80053; 80061; 82306; 82728; 84439; 84443; 85025

== ENCOUNTER → 2019-03-23 | Outpatient (CLI) | payer OTHER, SELFPAY ==
--- NOTE | 2019-03-23 14:36 | BI_ITS ---
MAMMOGRAPHY - BILATERAL SCREENING REASON FOR EXAM: Female, 59 years old. Routine annual screening examination. PERTINENT HISTORY: Non-contributory. TECHNIQUE: Digital bilateral breast sunny (3D mammographic acquisition) in the CC and MLO projections. 2-D mediolateral oblique (MLO) and craniocaudad (CC) views of both breasts were obtained. CAD: Full Field Digital Mammography with Computer Added Detection was performed. COMPARISON: Comparison is made with prior study dated December 12, 2017. FINDINGS: Breast Composition: The breasts are heterogeneously dense, which may obscure small masses. There are no dominant masses or suspicious calcifications. Stable small benign-appearing bilateral axillary lymph nodes. No other significant abnormalities are identified. There has been no significant change since the prior study. BI/SCREEN MAMM (CAD) W/SUNNY BILAT IMPRESSION: Stable bilateral screening mammogram. Yearly follow-up mammogram recommended. (A) ASSESSMENT CATEGORY: BIRADS Category 2: Benign. A letter regarding these results will be sent to the patient by the facility within 30 days. Approximately 10% of breast cancers are not detected by mammography. A normal mammogram should not delay biopsy of a clinically suspicious abnormality. [id number] Electronically Signed: Rios Winchester, at 15:34 EDT , Service support ,
== END | disposition home or self-care (01) ==
LOC: OPBI 14:32
PROVIDERS: Family Provider Family Medicine; PCP Family Medicine; Referring Provider Family Medicine; Visit Provider Family Medicine
DX: Z00.00 Encounter for general adult medical examination without abnormal findings (principal); Z12.31 Encounter for screening mammogram for malignant neoplasm of breast
CPT/HCPCS: 77063; 77067

== ENCOUNTER → 2019-03-24 | Outpatient (CLI) | payer OTHER, SELFPAY ==
--- NOTE | 2019-03-24 17:32 | CT_ITS ---
STUDY: CT LOWER RIGHT HIP REASON FOR EXAM: Female, 59 years old. Pain TECHNIQUE: Transaxial CT imaging of the right hip was performed. Sagittal and coronal images were reconstructed. COMPARISON: None. FINDINGS: Normal subcutis adipose space. Normal adductor and hamstring muscles. Normal quadriceps extensor mechanism with a normal rectus femoris, vastus medialis, intermedius and lateralis muscles. Normal femur. Normal hip joint. Normal pubic symphysis and pubic rami. CT/Extremity Lower without Contra IMPRESSION: Normal CT examination of the right hip. Electronically Signed: Ajay Mcgraw DO at 19:54 EDT Tel [phone], Service support ,
== END | disposition home or self-care (01) ==
PROVIDERS: Family Provider Family Medicine; PCP Family Medicine; Referring Provider Family Medicine; Visit Provider Family Medicine
DX: M25.551 Pain in right hip (principal)
CPT/HCPCS: 73700

== ENCOUNTER → 2019-04-15 09:17 | Outpatient (CLI) | payer OTHER, SELFPAY ==
[2019-04-15 10:02] LABS: Absolute Lymphocyte Count 1.99 X10^3/uL (0.83-4.51); Absolute Neutrophil Count 2.2 X10^3/uL (2.0-7.7); Basophil# 0.06 X10^3/uL; Basophil% 1.3 % (0-1); Eosinophil# 0.17 X10^3/uL; Eosinophils% 3.6 % (0-5); Hematocrit 38.9 % (37-47); Hemoglobin 12.1 g/dL (12.0-15.0); Lymphocyte # 1.99 X10^3/ul (4.0); Lymphocyte % 42.1 % (19-41); Mean Corp Hgb Conc 31.1 g/dL (32-36); Mean Corpuscular Hgb 27.1 pg (27.0-32.0); Mean Corpuscular Volume 87.2 fL (81-99); Mean Platelet Vol. 10.7 fl (6.2-12.0); Monocyte# 0.33 X10^3/uL; NRBC Flagged by Analyzer 0 % (0-5); Neutrophil # 2.17 X10^3/uL (2.7-7.7); Neutrophil % 45.8 % (47-70); Platelet Count 231 K/mm3 (150-450); RBC Distribution Width CV 14.1 % (11.6-14.6); RBC Distribution Width SD 45.1 fl (35.1-43.9); Red Blood Count 4.46 M/mm3 (4.2-5.4); White Blood Count 4.7 K/mm3 (4.4-11.0)
[2019-04-15 10:47] LABS: ALB/GLOB Ratio 1.1 RATIO (0.9-2.4); AST(SGOT) 14 U/L (15-37); Alanine Aminotransfer ALT/SGPT 15 U/L (13-56); Albumin, Serum 3.4 g/dL (3.2-5.0); Alkaline Phosphatase 73 U/L (45-117); Anion Gap 7 (5-15); BUN 13 mg/dL (7-18); CRP, High Sensitivity Cardiac 9.28 mg/L; Calcium,Total 8.9 mg/dL (8.5-10.1); Chloride 110 mmol/L (98-107); Cholesterol 208 mg/dL (200); Creatinine, Serum 0.81 mg/dL (0.55-1.02); EST Glomerular Filtration Rate 77 mL/min (>60); Est Glom Filt Rate - Afr Amer 93 mL/min (>60); Ferritin 39 ng/mL (8-252); Globulin 3.2 g/dL (2.2-4.2); Glucose 92 mg/dL (74-106); High Density Lipoprotein 48 mg/dL; Lipase 80 U/L (73-393); Magnesium 2.1 mg/dL (1.6-2.6); Potassium 3.8 mmol/L (3.5-5.1); Protein, Total 6.6 g/dL (6.4-8.2); Sodium Level 145 mmol/L (136-145); T4 Total, Thyroxin 9.4 ug/dL (4.8-13.9); Thyroid Stim Hormone (TSH) 0.95 uIU/mL (0.358-3.74); Triglycerides 84 mg/dL; Very Low Density Lipoprotein 17 mg/dL (5-40)
== END ==
PROVIDERS: Family Provider Family Medicine; PCP Family Medicine; Referring Provider Family Medicine; Visit Provider Family Medicine
DX: G35 Multiple sclerosis (principal); E03.9 Hypothyroidism, unspecified; Z13.220 Encounter for screening for lipoid disorders
CPT/HCPCS: 36415; 80053; 80061; 82728; 83690; 83735; 84436; 84443; 85025; 86141

== ENCOUNTER → 2019-06-23 12:05 | Outpatient (CLI) | payer OTHER, SELFPAY ==
[2019-06-23 14:09] LABS: Erythrocyte Sedimentation Rate 15 mm/hr (0-30)
[2019-06-23 14:11] LABS: Hematocrit 36.1 % (37-47); Hemoglobin 11.1 g/dL (12.0-15.0); Mean Corp Hgb Conc 30.7 g/dL (32-36); Mean Corpuscular Hgb 25.8 pg (27.0-32.0); Mean Corpuscular Volume 83.8 fL (81-99); Mean Platelet Vol. 9.9 fl (6.2-12.0); Platelet Count 363 K/mm3 (150-450); RBC Distribution Width CV 14.6 % (11.6-14.6); Red Blood Count 4.31 M/mm3 (4.2-5.4); White Blood Count 6.9 K/mm3 (4.4-11.0)
== END ==
PROVIDERS: Family Provider Family Medicine; PCP Family Medicine; Referring Provider Internal Medicine Gastroenterology; Visit Provider Internal Medicine Gastroenterology
DX: K52.9 Noninfective gastroenteritis and colitis, unspecified (principal)
CPT/HCPCS: 36415; 85027; 85652; 86140

== ENCOUNTER → 2019-08-11 09:58 | Outpatient (CLI) | payer MEDICAID, SELFPAY ==
[2019-08-11 12:28] LABS: Erythrocyte Sedimentation Rate 13 mm/hr (0-30)
[2019-08-11 12:29] LABS: Absolute Lymphocyte Count 1.79 X10^3/uL (0.83-4.51); Absolute Neutrophil Count 3.8 X10^3/uL (2.0-7.7); Basophil# 0.06 X10^3/uL; Eosinophil# 0.14 X10^3/uL; Eosinophils% 2.3 % (0-5); Hematocrit 40.2 % (37-47); Hemoglobin 12.2 g/dL (12.0-15.0); Lymphocyte # 1.79 X10^3/ul (4.0); Lymphocyte % 28.9 % (19-41); Mean Corp Hgb Conc 30.3 g/dL (32-36); Mean Corpuscular Hgb 25.6 pg (27.0-32.0); Mean Corpuscular Volume 84.5 fL (81-99); Mean Platelet Vol. 10.8 fl (6.2-12.0); Monocyte# 0.42 X10^3/uL; Monocyte% 6.8 % (0-10); NRBC Flagged by Analyzer 0 % (0-5); Neutrophil # 3.76 X10^3/uL (2.7-7.7); Neutrophil % 60.7 % (47-70); Platelet Count 274 K/mm3 (150-450); RBC Distribution Width CV 15.2 % (11.6-14.6); RBC Distribution Width SD 46.8 fl (35.1-43.9); Red Blood Count 4.76 M/mm3 (4.2-5.4); White Blood Count 6.2 K/mm3 (4.4-11.0)
[2019-08-11 13:16] LABS: ALB/GLOB Ratio 0.9 RATIO (0.9-2.4); AST(SGOT) 16 U/L (15-37); Alanine Aminotransfer ALT/SGPT 20 U/L (13-56); Albumin, Serum 3.3 g/dL (3.2-5.0); Alkaline Phosphatase 105 U/L (45-117); Anion Gap 5 (5-15); BUN 17 mg/dL (7-18); BUN/Creat Ratio 21.7 RATIO (10-20); Calcium,Total 8.6 mg/dL (8.5-10.1); Chloride 108 mmol/L (98-107); Creatinine, Serum 0.78 mg/dL (0.55-1.02); EST Glomerular Filtration Rate 80 mL/min (>60); Est Glom Filt Rate - Afr Amer 97 mL/min (>60); Free T3 2.6 pg/mL (2.18-3.98); Globulin 3.7 g/dL (2.2-4.2); Glucose 92 mg/dL (74-106); Sodium Level 139 mmol/L (136-145); T4 Free Direct 1.06 ng/dL (0.76-1.46); Thyroid Stim Hormone (TSH) 2.26 uIU/mL (0.358-3.74)
== END ==
PROVIDERS: PCP Family Medicine; Referring Provider Family Medicine; Visit Provider Family Medicine
DX: K52.9 Noninfective gastroenteritis and colitis, unspecified (principal); E03.9 Hypothyroidism, unspecified
CPT/HCPCS: 36415; 80053; 84439; 84443; 84481; 85025; 85652; 86140

== ENCOUNTER → 2020-01-17 09:59 | Outpatient (CLI) | payer MEDICAID, SELFPAY ==
[2020-01-17 12:05] LABS: Absolute Lymphocyte Count 2.16 X10^3/uL (0.83-4.51); Basophil# 0.06 X10^3/uL; Basophil% 0.9 % (0-1); Eosinophil# 0.21 X10^3/uL; Hematocrit 41.3 % (37-47); Hemoglobin 12.4 g/dL (12.0-15.0); Lymphocyte # 2.16 X10^3/ul (4.0); Lymphocyte % 31.3 % (19-41); Mean Corpuscular Hgb 26.8 pg (27.0-32.0); Mean Corpuscular Volume 89.4 fL (81-99); Mean Platelet Vol. 10.4 fl (6.2-12.0); Monocyte# 0.46 X10^3/uL; Monocyte% 6.7 % (0-10); NRBC Flagged by Analyzer 0 % (0-5); Neutrophil # 3.99 X10^3/uL (2.7-7.7); Neutrophil % 57.7 % (47-70); Platelet Count 322 K/mm3 (150-450); RBC Distribution Width CV 14.8 % (11.6-14.6); RBC Distribution Width SD 48.8 fl (35.1-43.9); Red Blood Count 4.62 M/mm3 (4.2-5.4); White Blood Count 6.9 K/mm3 (4.4-11.0)
[2020-01-17 12:19] LABS: ALB/GLOB Ratio 0.9 RATIO (0.9-2.4); AST(SGOT) 15 U/L (15-37); Alanine Aminotransfer ALT/SGPT 17 U/L (13-56); Albumin, Serum 3.2 g/dL (3.2-5.0); Alkaline Phosphatase 103 U/L (45-117); Anion Gap 5 (5-15); BUN 15 mg/dL (7-18); BUN/Creat Ratio 18.6 RATIO (10-20); CRP 8.05 mg/L (0.0-3.0); Calcium,Total 8.7 mg/dL (8.5-10.1); Chloride 106 mmol/L (98-107); Creatinine, Serum 0.81 mg/dL (0.55-1.02); EST Glomerular Filtration Rate 77 mL/min (>60); Est Glom Filt Rate - Afr Amer 94 mL/min (>60); Ferritin 15 ng/mL (8-252); Globulin 3.7 g/dL (2.2-4.2); Glucose 93 mg/dL (74-106); Iron 40 ug/dL (50-170); Iron Binding Capacity,Total 293 ug/dL (250-450); Potassium 4.4 mmol/L (3.5-5.1); Protein, Total 6.9 g/dL (6.4-8.2); Sodium Level 140 mmol/L (136-145); Vitamin B12 267 pg/mL (211-911)
[2020-01-17 12:22] LABS: Erythrocyte Sedimentation Rate 9 mm/hr (0-30)
[2020-01-18 15:40] LABS: ANTINUCLEAR ANTIBODIES DIRECT Negative (Negative)
== END ==
PROVIDERS: PCP Family Medicine; Visit Provider Family Medicine
DX: K52.9 Noninfective gastroenteritis and colitis, unspecified (principal)
CPT/HCPCS: 36415; 80053; 82607; 82728; 83540; 83550; 85025; 85652; 86038; 86140

== ENCOUNTER → 2020-10-23 12:11 | Outpatient (CLI) | payer MEDICAID, SELFPAY ==
[2020-10-17 16:35] VITALS: BMI 28.5
--- NOTE | 2020-10-23 12:20 | BI_ITS ---
MAMMOGRAPHY - BILATERAL SCREENING 3-D TOMOSYNTHESIS REASON FOR EXAM: Female, 60 years old. SCREENING PERTINENT HISTORY: No significant family history. TECHNIQUE: 2-D mammograms and 3-D Tomosynthesis of the breast (s) were performed. CAD was performed. COMPARISON: None. FINDINGS: There are scattered areas of fibroglandular density. Scattered benign calcifications are seen. No dense spiculated masses or suspicious microcalcifications are identified. No architectural distortion is identified. There is no skin thickening or retraction. BI/SCRN MAMM (CAD)W/SUNNY BILAT IMPRESSION: No mammographic signs of malignancy. Routine yearly mammograms recommended. ASSESSMENT CATEGORY: BIRADS Category 1: Negative. A letter regarding these results will be sent to the patient by the facility within 30 days. FOLLOW UP RECOMMENDATION: Yearly follow up mammogram recommended. (A) Approximately 10% of breast cancers are not detected by mammography. A normal mammogram should not delay biopsy of a clinically suspicious abnormality. Electronically Signed: Taz Chase MD at 15:14 EDT Tel , Service support ,
== END ==
PROVIDERS: PCP Family Medicine; Referring Provider Family Medicine; Visit Provider Family Medicine
DX: Z12.31 Encounter for screening mammogram for malignant neoplasm of breast (principal)
CPT/HCPCS: 77063; 77067

== ENCOUNTER → 2020-12-12 08:20 | Outpatient (CLI) | payer MEDICAID, SELFPAY ==
[2020-12-11 11:00] VITALS: BMI 28.8
[2020-12-12 10:16] LABS: Absolute Lymphocyte Count 2.17 X10^3/uL (0.83-4.51); Absolute Neutrophil Count 3.2 X10^3/uL (2.0-7.7); Basophil# 0.07 X10^3/uL; Basophil% 1.1 % (0-1); Eosinophil# 0.35 X10^3/uL; Eosinophils% 5.6 % (0-5); Hematocrit 39.7 % (37-47); Hemoglobin 12.2 g/dL (12.0-15.0); Lymphocyte # 2.17 X10^3/ul (0.83-4.51); Mean Corp Hgb Conc 30.7 g/dL (32-36); Mean Corpuscular Hgb 26.1 pg (27.0-32.0); Mean Corpuscular Volume 84.8 fL (81-99); Mean Platelet Vol. 9.8 fl (6.2-12.0); Monocyte# 0.45 X10^3/uL; Monocyte% 7.3 % (0-10); NRBC Flagged by Analyzer 0 % (0-5); Neutrophil # 3.15 X10^3/uL (2.7-7.7); Neutrophil % 50.8 % (47-70); Platelet Count 317 K/mm3 (150-450); RBC Distribution Width CV 15.7 % (11.6-14.6); RBC Distribution Width SD 48.3 fl (35.1-43.9); Red Blood Count 4.68 M/mm3 (4.2-5.4); White Blood Count 6.2 K/mm3 (4.4-11.0)
[2020-12-12 10:34] LABS: ALB/GLOB Ratio 0.9 RATIO (0.9-2.4); AST(SGOT) 12 U/L (15-37); Alanine Aminotransfer ALT/SGPT 17 U/L (13-56); Albumin, Serum 3.4 g/dL (3.2-5.0); Alkaline Phosphatase 97 U/L (45-117); Anion Gap 7 (5-15); BUN 15 mg/dL (7-18); BUN/Creat Ratio 18.8 RATIO (10-20); Calcium,Total 8.8 mg/dL (8.5-10.1); Chloride 108 mmol/L (98-107); EST Glomerular Filtration Rate 78 mL/min (>60); Est Glom Filt Rate - Afr Amer 94 mL/min (>60); Globulin 3.6 g/dL (2.2-4.2); Glucose 89 mg/dL (74-106); Potassium 4.1 mmol/L (3.5-5.1); Sodium Level 142 mmol/L (136-145); Thyroid Stim Hormone (TSH) 2.14 uIU/mL (0.358-3.74)
== END ==
PROVIDERS: PCP Family Medicine; Referring Provider Psychiatry & Neurology Neurology; Visit Provider Psychiatry & Neurology Neurology
DX: G35 Multiple sclerosis (principal); R53.83 Other fatigue
CPT/HCPCS: 36415; 80053; 84443; 85025

== ENCOUNTER → 2021-02-13 15:29 | Outpatient (CLI) | payer MEDICAID, SELFPAY ==
[2021-01-11 15:49] VITALS: BMI 28.8
--- NOTE | 2021-02-13 15:30 | RAD_ITS ---
STUDY: X-RAY - PELVIS AND BILATERAL HIPS REASON FOR EXAM: Female, 61 years old. Bilateral hip and lower back pain. TECHNIQUE: AP view of the pelvis.? 2 views of the right hip, and 2 views of the left hip were obtained. COMPARISON: CT of the abdomen and pelvis, 11/30/2018 FINDINGS: There is a non-specific bowel gas pattern. Normal visualized soft tissue structures. Normal bilateral iliac wings, sacroiliac joints and visualized sacrum. Normal bilateral superior and inferior pubic rami. Normal pubic symphysis. Normal bilateral ischial tuberosities. Normal visualized right femoral head. Normal right acetabulum. Normal right hip joint. Normal visualized left femoral head. Normal left acetabulum. Normal left hip joint. RAD/Hips B/L min 2 views w/ Pelvis IMPRESSION: Normal x-ray examination of the pelvis and bilateral hips. Electronically Signed: Salas Alcazar DO at 16:15 EDT Tel [phone], Service support ,
--- NOTE | 2021-02-13 15:30 | RAD_ITS ---
STUDY: X-RAY - LUMBAR SPINE REASON FOR EXAM: Female, 61 years old. Lower back pain. TECHNIQUE: 2 view(s) of the lumbar spine were obtained. COMPARISON: None FINDINGS: Normal lumbar lordosis. There is no substantial scoliosis. There is a normal alignment of the vertebrae. There is multilevel endplate spondylosis of the lumbar vertebrae. There is multi-level degenerative disc disease with multi-level disc space narrowing. There is no evidence of acute fracture or loss of vertebral axial height. The soft tissue structures are unremarkable. RAD/Lumbar Spine 2 or 3 Views IMPRESSION: Degenerative changes of the spine, as detailed above. Electronically Signed: Salas Alcazar DO at 0:00 EDT Tel [phone], Service support ,
== END ==
PROVIDERS: PCP Family Medicine; Referring Provider Psychiatry & Neurology Neurology; Visit Provider Psychiatry & Neurology Neurology
DX: M25.551 Pain in right hip (principal); M25.552 Pain in left hip; M54.5 Low back pain
CPT/HCPCS: 72100; 73521

== ENCOUNTER 2021-08-20 18:08 | Outpatient (CLI) | payer MEDICARE, MEDICAID, SELFPAY | END 2021-08-20 23:59 | disposition short-term general hospital (02) | PROVIDERS: PCP Family Medicine; Referring Provider Family Medicine; Visit Provider Family Medicine | DX: U07.1 COVID-19 (principal) | CPT/HCPCS: 87635; U0003; U0005 ==

== ENCOUNTER 2021-10-05 09:47 | Outpatient (CLI) | payer MEDICARE, MEDICAID, SELFPAY | END 2021-10-05 23:59 | disposition home or self-care (01) | LOC: LABSPEC 09:49 | PROVIDERS: PCP Family Medicine; Referring Provider Family Medicine; Visit Provider Family Medicine | DX: J32.9 Chronic sinusitis, unspecified (principal) | CPT/HCPCS: 87070; 87077; 87205 ==

== ENCOUNTER → 2021-11-14 | Outpatient (CLI) | payer MEDICARE, MEDICAID, SELFPAY ==
--- NOTE | 2021-11-14 12:59 | BI_ITS ---
MAMMOGRAPHY - BILATERAL SCREENING REASON FOR EXAM: Female, 61 years old. Routine annual screening examination. PERTINENT HISTORY: Aunt with breast cancer. TECHNIQUE: Digital bilateral breast sunny (3D mammographic acquisition) in the CC and MLO projections. 2-D mediolateral oblique (MLO) and craniocaudad (CC) views of both breasts were obtained. CAD: Full Field Digital Mammography with Computer Added Detection was performed. COMPARISON: Comparison is made with prior study dated 10/23/2020 and 03/23/2019. FINDINGS: Breast Composition: There are scattered areas of fibroglandular density. Since prior study, there has been an increase in the number of microcalcifications in the upper slightly medial aspect of the left breast. Biopsy is recommended. No other significant abnormalities are identified. BI/SCRN MAMM (CAD)W/SUNNY BILAT IMPRESSION: Increased number of microcalcifications in the upper deep slightly medial aspect of the left breast as described. Biopsy is recommended. ASSESSMENT CATEGORY: BIRADS Category 4: Suspicious - Biopsy Should Be Considered. A letter regarding these results will be sent to the patient by the facility within 30 days. Approximately 10% of breast cancers are not detected by mammography. A normal mammogram should not delay biopsy of a clinically suspicious abnormality. [id number] Electronically Signed: Rios Winchester MD at 13:44 EDT ,
== END | disposition home or self-care (01) ==
LOC: OPBI 12:57
PROVIDERS: PCP Family Medicine; Referring Provider Family Medicine; Visit Provider Family Medicine
DX: Z12.31 Encounter for screening mammogram for malignant neoplasm of breast (principal); R92.0 Mammographic microcalcification found on diagnostic imaging of breast
CPT/HCPCS: 77063; 77067

== ENCOUNTER → 2021-11-22 | Outpatient (CLI) | payer MEDICARE, MEDICAID, SELFPAY ==
--- NOTE | 2021-11-22 | BRBX_PTH ---
PATIENT: CHANEL PRASAD LOC: [facility] U#:[id number] AGE/SX: 61/F ROOM: RE11/22/[address]: Dr. Asmita Cespedes MD : 1960 BED: DIS: 11/22/2021 SPEC #: [id number] RECD: 11/22/21 12:20 STATUS: HEBER JUAN #: [id number] INA: 11/22/21 00:[address]: Asmita Cespedes DEPT: SURGICAL PATHOLOGY RECD BY: Dakota Molina ENTERED: 11/22/21 12:20 SP TYPE: BREAST BX OTHR DR: Dr. Marito Zavala MD Tissues: Left breast, NOS Procedures: Surgery Specimen Level IV HEADER OPERATION: Left Breast Stereotactic Biopsy PRE-OP DIAGNOSIS: Left breast microcalcifications in the upper deep slightly medial aspect of the breast. TISSUE SUBMITTED: Left breast core tissue ISCHEMIC TIME: 2 minutes FIXATION TIME: 8.5 hours MICROSCOPIC DIAGNOSIS Left breast, upper medial region, stereotactic core biopsy: Fibrocystic change. Focal intraductal hyperplasia without atypia. Banal microcalcifications, focal. Focal calcifications of vessel wall. No evidence of malignancy. AM:shayy 11/23/2021 MICROSCOPIC DESCRIPTION Slides are reviewed. GROSS DESCRIPTION Received in fixative is one container labeled with the patient's name and designated left breast. The specimen consists of multiple elongated fragments of samuel-yellow fibroadipose tissue mixed with blood clot that in aggregate measure 5 x 3 x 0.6 cm. The entire specimen is submitted in four cassettes. / SJ:shayy 11/22/2021 TC:5 CPT: 56289
--- NOTE | 2021-11-22 11:35 | OP.PCM_ITS ---
Report of Operation Date of Procedure: 11/22/21 Pre-Operative Diagnosis: Let breast microcalcifications Post-Operative Diagnosis: Same Surgery/Procedure Performed:: Stereotactic guided biopsy of left breast microcalcifications Surgeon: Asmita Cesepdes Type of Anesthesia: Local Specimen's removed: Left breast microcalcifications?medial deep Estimated Blood Loss (mL): 20 cc Description of Procedure: Procedure: Left stereotactic core biopsy Indications: 61 year-old female with microcalcifications in the medial/deep of the left breast. Risk benefits were discussed the patient and she elected to proceed with stereotactic core biopsy with clip placement Description of procedure: Patient was brought into the mammography suite and la id prone on the stereotactic table. A timeout was completed verifying correct patient, procedure, site, specially, prior to beginning procedure. The left breast was prepped and draped in usual sterile fashion and using local anesthesia was obtained with 1% lidocaine. Patient's left breast was positioned and placed into compression. Initial film showed calcifications are in the center of the compression paddle. 15? views were then taken. The calcifications were localized. The left breast was prepped draped in usual sterile fashion. An 8-gauge mammotome was set up according to the digital coordinates. The tract of the mammotome was anesthetized with local anesthesia and an incision was made with the 11 blade scalpel at the entry site. The mammotome was advanced to the prefire state. Pre-prior films were checked and verified. The mammotome was fired. Post fire films were also checked and verified. Biopsies were taken from the 12:00 to 8:00. The specimen was x-rayed and the targeted calcifications were within the specimen. Mammotome clip was placed at the 12 o'clock position. The mammotome was removed from the breast. An additional films were taken which showed all calcifications were removed and a clip was in place. Pressure was held for hemostasis. Once hemostasis was assured the wound was dressed with Steri-Strips and OpSite. The patient tolerated the procedure well and was discharged from the mammography suite good condition. Complications none
== END | disposition home or self-care (01) ==
LOC: BIRAD 10:27
PROVIDERS: PCP Family Medicine; Visit Provider Surgery
DX: N60.12 Diffuse cystic mastopathy of left breast (principal)
CPT/HCPCS: 19081; 88305; J7050; A4648

== ENCOUNTER → 2021-12-07 | Outpatient (CLI) | payer MEDICARE, MEDICAID, SELFPAY ==
[2021-12-07 15:22] LABS: Absolute Lymphocyte Count 2.17 X10^3/uL (0.83-4.51); Absolute Neutrophil Count 3.5 X10^3/uL (2.0-7.7); Basophil# 0.07 X10^3/uL; Basophil% 1.1 % (0-1); Eosinophil# 0.23 X10^3/uL; Eosinophils% 3.6 % (0-5); Hematocrit 35.7 % (37-47); Hemoglobin 11.3 g/dL (12.0-15.0); Lymphocyte # 2.17 X10^3/ul (0.83-4.51); Lymphocyte % 34.2 % (19-41); Mean Corp Hgb Conc 31.7 g/dL (32-36); Mean Corpuscular Volume 88.6 fL (81-99); Mean Platelet Vol. 10.3 fl (6.2-12.0); Monocyte# 0.38 X10^3/uL; NRBC Flagged by Analyzer 0 % (0-5); Neutrophil # 3.48 X10^3/uL (2.7-7.7); Neutrophil % 54.8 % (47-70); Platelet Count 311 K/mm3 (150-450); RBC Distribution Width CV 14.5 % (11.6-14.6); RBC Distribution Width SD 46.9 fl (35.1-43.9); Red Blood Count 4.03 M/mm3 (4.2-5.4); White Blood Count 6.4 K/mm3 (4.4-11.0)
[2021-12-07 15:33] LABS: Vitamin B12 543 pg/mL (211-911); Vitamin D,25 Hydroxy 50.5 ng/mL
[2021-12-07 15:36] LABS: AST(SGOT) 15 U/L (15-37); Alanine Aminotransfer ALT/SGPT 22 U/L (13-56); Albumin, Serum 3.3 g/dL (3.2-5.0); Alkaline Phosphatase 84 U/L (45-117); Anion Gap 6 (5-15); BUN 18 mg/dL (7-18); BUN/Creat Ratio 21.8 RATIO (10-20); Calcium,Total 8.5 mg/dL (8.5-10.1); Chloride 108 mmol/L (98-107); Creatinine, Serum 0.83 mg/dL (0.55-1.02); EST Glomerular Filtration Rate 75 mL/min (>60); Est Glom Filt Rate - Afr Amer 90 mL/min (>60); Globulin 3.4 g/dL (2.2-4.2); Glucose 94 mg/dL (74-106); Potassium 3.7 mmol/L (3.5-5.1); Protein, Total 6.7 g/dL (6.4-8.2); Sodium Level 140 mmol/L (136-145); Thyroid Stim Hormone (TSH) 2.23 uIU/mL (0.358-3.74)
== END | disposition home or self-care (01) ==
LOC: BIMLAB 13:40
PROVIDERS: PCP Family Medicine; Referring Provider Internal Medicine; Visit Provider Internal Medicine
DX: E03.9 Hypothyroidism, unspecified (principal); E55.9 Vitamin D deficiency, unspecified; E53.8 Deficiency of other specified B group vitamins
CPT/HCPCS: 36415; 80053; 82306; 82607; 84443; 85025

== ENCOUNTER → 2022-02-07 | Outpatient (CLI) | payer MEDICARE, MEDICAID, SELFPAY | END | disposition home or self-care (01) | LOC: LAB 14:53 | PROVIDERS: PCP Internal Medicine; Referring Provider Internal Medicine; Visit Provider Internal Medicine | DX: Z86.19 Personal history of other infectious and parasitic diseases (principal) | CPT/HCPCS: 87493 ==

== ENCOUNTER 2022-03-04 09:19 | Emergency (ER) | payer MEDICARE, MEDICAID, SELFPAY ==
[2022-03-04 09:20] VITALS: BP 121/100; PULSE 145; RESP 18; TEMP 36.7; O2SAT 95; BMI 27.4
--- NOTE | 2022-03-04 09:33 | CT_ITS ---
STUDY: CT ABDOMEN AND PELVIS WITH CONTRAST REASON FOR EXAM: Female, 62 years old. Ulcerative Colitis, Pain RADIATION DOSAGE (If Supplied By Facility): CTDIvol = ( 14.32 ) mGy, DLP = ( 832.62 ) mGycm TECHNIQUE: Transaxial images were obtained from the dome of the diaphragm to the symphysis pubis without oral contrast. IV 100mL Isovue-300 was administered. Sagittal and coronal images were reconstructed. Individualized dose optimization techniques were used for this CT. COMPARISON: CT of abdomen and pelvis dated NOVEMBER 30, 2018 FINDINGS: The visualized lung bases are unremarkable. Normal liver. No intrahepatic biliary duct dilatation or liver mass. Normal gallbladder and extrahepatic biliary system. Normal spleen. Normal pancreas. Normal bilateral adrenal glands. Normal right kidney. Normal left kidney. No hydronephrosis or renal masses. No visualized radiopaque stones. Tiny simple cyst of the left kidney reidentified which does not require any additional imaging. Normal visualized stomach. Normal small intestine. Reidentification of collapsed colonic loops with mild to moderate mucosal edema and the bello and neovascularization along the full length likely due to chronic disease. An acute on chronic process is possible. No obvious pericolonic inflammatory stranding is seen on the current study. Reidentification of multiple colonic diverticula without evidence of active inflammation. No bowel dilatation or obstruction. No free air or free fluid. There is non-visualization of the appendix. Normal abdominal aorta. Normal inferior vena cava. Normal retroperitoneum. Normal urinary bladder. There is absence of the uterus consistent with a prior hysterectomy. The left ovarian cyst has slightly increased in size since the last study, currently measuring 3.87 x 3.08 cm. The cyst is simple in appearance with no suspicious features. There is a small umbilical hernia containing fat. There are chronic compression deformities of several thoracic and lumbar vertebra. There are diffuse degenerative changes of the visualized lumbar spine. CT/Abdomen/Pelvis W IV Cont ONLY IMPRESSION: 1. Reidentification of collapsed colonic loops with mild to moderate mucosal edema and the bello and neovascularization along the full length likely due to chronic disease. 2. An acute on chronic process is possible. No obvious pericolonic inflammatory stranding is seen on the current study. 3. Reidentification of multiple colonic diverticula without evidence of active inflammation. 4. No bowel dilatation or obstruction. No free air or free fluid. Electronically Signed: Srinivas Martínez MD at 11:05 EDT ,
--- NOTE | 2022-03-04 09:35 | EDS_ITS ---
HPI HPI - GI History of Present Illness Chief Complaint: Weakness Narrative Narrative: Patient with past medical history of multiple sclerosis, ulcerative colitis, presents with abdominal cramping, diarrhea, and nausea that she is had for the last few weeks. She states that she has been on a prednisone taper for at least the last month and was tapering down. She has been experiencing multiple episodes of occasionally bloody diarrhea consistent with her ulcerative colitis. She has been on medication for 3 years and is supposed to be switching to it. She does not see Dr. Mobley here until her first visit scheduled for the . She does see the [facility] turbine attendant who she states is trying to change her medication. She was given dicyclomine for her cramping, but had a bad reaction to it which made her more nauseated. She was told that she needed CT imaging as an outpatient because of her continued symptoms of diarrhea, and abdominal cramping. She denies any fevers Illes. She has nauseated but has not vomited. She feels generally weak. She denies any dysuria or hematuria. [facility] Medical History B12 deficiency Back pain Back problem Carpal tunnel syndrome Chronic bronchitis Factor 5 Leiden mutation, heterozygous Frequent headaches Hemorrhoids Hypothyroidism Internal bleeding hemorrhoids Irritable bowel syndrome Pneumonia Polycystic ovaries Preventative health care Rectal bleed Seasonal allergies Thyroid disease Ulcerative colitis Home Medications levothyroxine 50 mcg tablet 50 mcg PO DAILY thyroid 11/30/18 [History Last Taken 11/30/18] naproxen sodium 220 mg capsule (Aleve) 220 mg PO BID PRN 12/11/20 [History Last Taken Unknown] vedolizumab 300 mg intravenous solution (Entyvio) 300 mg .Route 12/11/20 [History Last Taken Unknown] cholecalciferol (vitamin D3) 1,250 mcg (50,000 unit) capsule 1,250 mcg PO QWEEK #4 caps 06/18/21 [Rx Last Taken Unknown] cyanocobalamin (vitamin B-12) 1,000 mcg/mL injection solution 100 mcg IM QMONTH 11/22/21 [History Last Taken Unknown] valacyclovir 500 mg tablet (Valtrex) 500 mg PO DAILY PRN 11/22/21 [History Last Taken Unknown] Allergy/AdvReac Type Severity Reaction Status Date / Time infliximab [From Remicade] Allergy Severe 'Allergic Verified 03/04/22 09:22 Reaction' zinc Allergy Severe Throwing Verified 03/04/22 09:22 up acetaminophen [From [place]] Allergy Unknown Unknown Verified 03/04/22 09:22 alprazolam Allergy Unknown Unknown Verified 03/04/22 09:22 hydrocodone [From [place]] Allergy Unknown Unknown Verified 03/04/22 09:22 balsalazide AdvReac Severe GI upset Verified 03/04/22 09:22 and Headache metronidazole [From Flagyl] AdvReac Severe mental Verified 03/04/22 09:22 status changes prednisone AdvReac Severe locks up Verified 03/04/22 09:22 muscles codeine AdvReac Intermediate Vomiting Verified 03/04/22 09:22 Penicillins AdvReac Mild Itching Verified 03/04/22 09:22 phenazopyridine AdvReac Unknown GI Upset Verified 03/04/22 09:22 azithromycin AdvReac Vomiting Verified 03/04/22 09:22 [From Zithromax Z-Del] mesalamine AdvReac Intolerance Verified 03/04/22 09:22 naproxen [From Naprosyn] AdvReac Other Verified 03/04/22 09:22 Sulfa (Sulfonamide AdvReac Vomiting Verified 03/04/22 09:22 Antibiotics) PROBIOTICS Allergy Other Uncoded 03/04/22 09:22 Metronidazole AdvReac Unknown Mental Uncoded 03/04/22 09:22 Status Change Family History Grandmother CVA (cerebral vascular accident) Father Alcoholism Sister Alcoholism Asthma Factor V Leiden Mother Depression CVA (cerebral vascular accident) Other Anxiety Surgical History History of appendectomy History of carpal tunnel surgery of left wrist History of colonoscopy (~2017) History of hemorrhoidectomy (~10/2018) History of hysterectomy History of oophorectomy Social History Smoking Status: Never smoker Electronic Cigarette Use: not used second hand exposure: No alcohol intake: never substance use type: does not use what type of physical activity do you participate in: walking frequency: daily duration: 15-30 minutes/day ROS ROS ED ROS Narrative Constitutional: No fever, no chills. HEENT: No sore throat. No neck pain. No loss of vision. No rhinorrhea. Cardiovascular: No chest pain. No palpitations. No pedal edema. Respiratory: No cough, no shortness of breath. Abdominal: Diffuse, crampy abdominal pain. Positive nausea. No vomiting. Multiple episodes of diarrhea per day, loose stool, occasionally blood-tinged. Genitourinary: No dysuria. No hematuria. Musculoskeletal: No myalgias. No arthralgias. Neurologic: No headaches. No dizziness. No lightheadedness. Generalized weakness. Skin: No rash. No change in color. Psychiatric: No depression. No anxiety. EXAM Physical Exam Narrative Exam Narrative: Afebrile. Vital signs noted. HEENT: Normocephalic. Atraumatic. PERRL, EOMI. Neck soft and supple. No point tenderness or step off. Cardiovascular: Regular rate and rhythm. No murmurs, rubs, or gallops appreciated. Respiratory: No tachypnea. Lungs clear to auscultation bilaterally. Gastrointestinal: Abdomen soft, mild diffuse tenderness with normoactive bowel sounds. No rebound or guarding. Neurological: Awake. Alert. Nonfocal, nonlateralizing. Skin: No rash. Normal color. No pallor. Musculoskeletal: No pedal edema. Full range of motion extremities. Psychiatric: Mild anxiety, became tearful on examination. Const Vital Signs: 03/04/22 09:20 03/04/22 09:50 03/04/22 09:53 Temperature 98.0 F 98.0 F Temperature Source Temporal Temporal Pulse Rate 145 H 145 H Respiratory Rate 18 18 Respiratory Effort Normal Non-Labored Respiratory Pattern Normal Blood Pressure 121/100 H 121/100 H Blood Pressure Mean 107 107 Pulse Ox 95 95 Oxygen Delivery Method Room Air Room Air 03/04/22 09:55 03/04/22 11:00 Temperature Temperature Source Pulse Rate 107 H 89 Respiratory Rate 16 Respiratory Effort Respiratory Pattern Blood Pressure 128/71 H 115/69 Blood Pressure Mean 90 84 Pulse Ox 94 96 Oxygen Delivery Method Room Air Room Air MDM MDM MDM Narrative Medical decision making narrative: Comprehensive work-up was pursued. Patient has normal white count of 7.4, hemoglobin slightly low 11.4 with hematocrit 37.5. Normal platelet count of 427. CMP shows chloride 108 but electrolytes otherwise normal. BUN slightly elevated at 20 with creatinine of 0.9 consistent with very mild dehydration. LFTs show AST of 7 with ALT of 15. Urinalysis is negative for ketones and nega tive for infection. After small amount of IV fluids, she states she feels mildly improved. CT of the abdomen pelvis is significant for mild to moderate mucosal edema consistent with chronic ulcerative colitis. At this point in time, I do feel she can be discharged to follow-up with her turbine attendant either at the [facility] versus with Dr. Mobley at the end of the month. Return instructions to the emergency department were reviewed. Disposition is discharged home in stable condition. Lab Data Attestation: I reviewed the patient's lab results. Labs: Laboratory Results - last 24 hr 03/04/22 03/04/22 03/04/22 09:50 09:50 11:33 WBC 7.4 RBC 4.27 Hgb 11.4 L Hct 37.5 MCV 87.8 MCH 26.7 L MCHC 30.4 L RDW Std Deviation 49.7 H RDW Coeff of Nancie 15.6 H Plt Count 427 MPV 8.7 Immature Gran % (Auto) 0.800 Neut % (Auto) 57.0 Lymph % (Auto) 26.3 [place] % (Auto) 12.2 H Eos % (Auto) 3.0 Baso % (Auto) 0.7 Absolute Neuts (auto) 4.2 Absolute Lymphs (auto) 1.96 Nucleated RBC % 0 Sodium 140 Potassium 3.6 Chloride 108 H Carbon Dioxide 28.0 Anion Gap 4 L BUN 20 H Creatinine 0.94 Estim Creat Clear Calc 54.27 Est GFR (MDRD) Af Amer 78 Est GFR (MDRD) Non-Af 64 BUN/Creatinine Ratio 21.3 H Glucose 126 H Calcium 8.8 Total Bilirubin 0.40 AST 7 L ALT 15 Alkaline Phosphatase 87 Total Protein 6.6 Albumin 2.7 L Globulin 3.9 Albumin/Globulin Ratio 0.7 L Lipase 76 Urine Color Yellow Urine Clarity Clear Urine pH 7.0 Ur Specific Slemp 1.005 Urine Protein 30 H Urine Glucose (UA) Normal Urine Ketones Negative Urine Occult Blood 10 H Urine Nitrite Negative Urine Bilirubin Negative Urine Urobilinogen Normal Ur Leukocyte Esterase 25 H Urine RBC 0 SEEN Urine WBC 0-5 SEEN Ur Squamous Epith Cells 0-5 SEEN Urine Bacteria 0 SEEN Urine Mucus 0 SEEN Radiography Diagnostic Testing: Clinical Impression(s) from Imaging Studies Abdomen/Pelvis CT 03/04/22 09:33 IMPRESSION: 1. Reidentification of collapsed colonic loops with mild to moderate mucosal edema and the bello and neovascularization along the full length likely due to chronic disease. 2. An acute on chronic process is possible. No obvious pericolonic inflammatory stranding is seen on the current study. 3. Reidentification of multiple colonic diverticula without evidence of active inflammation. 4. No bowel dilatation or obstruction. No free air or free fluid. Electronically Signed: Srinivas Martínez MD at 11:05 EDT Reading Location ID and State: [facility] / [place] , Service support , Discharge Plan Triage Chief Complaint: Weakness ED Provider: Jordon Frausto Dx/Rx/DC Orders Clinical Impression: Ulcerative colitis, Multiple sclerosis, Fatigue, Generalized weakness Instructions: ED Ulcerative Colitis, ED Weakness (Uncertain Cause) Prescriptions: No Action naproxen sodium [Aleve] 220 mg capsule 220 mg PO BID PRN Entyvio 300 mg recon soln 300 mg .Route Rx Instructions: IV cholecalciferol (vitamin D3) 1,250 mcg (50,000 unit) capsule 1,250 mcg PO QWEEK Qty: 4 5RF cyanocobalamin (vitamin B-12) 1,000 mcg/mL solution 100 mcg IM QMONTH valacyclovir [Valtrex] 500 mg tablet 500 mg PO DAILY PRN levothyroxine 50 MCG tablet 50 mcg PO DAILY Label Comments: take 1 tablet by mouth once daily Primary Care Provider: Willy Ponce Referrals: Willy Ponce MD [Primary Care Provider] - Mike Mobley DO [Med Staff - Active Staff] - Keep Gamaliel appointment Disposition Disposition: Home, Self Care
[2022-03-04 09:50] VITALS: BP 121/100; PULSE 145; RESP 18; TEMP 36.7; O2SAT 95
[2022-03-04 09:55] VITALS: BP 128/71; PULSE 107; O2SAT 94
[2022-03-04 09:59] LABS: Absolute Lymphocyte Count 1.96 X10^3/uL (0.83-4.51); Absolute Neutrophil Count 4.2 X10^3/uL (2.0-7.7); Basophil# 0.05 X10^3/uL; Basophil% 0.7 % (0-1); Eosinophil# 0.22 X10^3/uL; Hematocrit 37.5 % (37-47); Hemoglobin 11.4 g/dL (12.0-15.0); Lymphocyte # 1.96 X10^3/ul (0.83-4.51); Lymphocyte % 26.3 % (19-41); Mean Corp Hgb Conc 30.4 g/dL (32-36); Mean Corpuscular Hgb 26.7 pg (27.0-32.0); Mean Corpuscular Volume 87.8 fL (81-99); Mean Platelet Vol. 8.7 fl (6.2-12.0); Monocyte# 0.91 X10^3/uL; Monocyte% 12.2 % (0-10); NRBC Flagged by Analyzer 0 % (0-5); Neutrophil # 4.24 X10^3/uL (2.7-7.7); Platelet Count 427 K/mm3 (150-450); RBC Distribution Width CV 15.6 % (11.6-14.6); RBC Distribution Width SD 49.7 fl (35.1-43.9); Red Blood Count 4.27 M/mm3 (4.2-5.4); White Blood Count 7.4 K/mm3 (4.4-11.0)
[2022-03-04] MEDS: 0.9% Normal Saline 1,000 ML 125 ML IV (10:06)
[2022-03-04 10:15] LABS: ALB/GLOB Ratio 0.7 RATIO (0.9-2.4); AST(SGOT) 7 U/L (15-37); Alanine Aminotransfer ALT/SGPT 15 U/L (13-56); Albumin, Serum 2.7 g/dL (3.2-5.0); Alkaline Phosphatase 87 U/L (45-117); Anion Gap 4 (5-15); BUN 20 mg/dL (7-18); BUN/Creat Ratio 21.3 RATIO (10-20); Calcium,Total 8.8 mg/dL (8.5-10.1); Chloride 108 mmol/L (98-107); Creatinine, Serum 0.94 mg/dL (0.55-1.02); EST Glomerular Filtration Rate 64 mL/min (>60); Est Glom Filt Rate - Afr Amer 78 mL/min (>60); Estimated Creatinine Clearance 54.27 ml/min; Globulin 3.9 g/dL (2.2-4.2); Glucose 126 mg/dL (74-106); Lipase 76 U/L (73-393); Potassium 3.6 mmol/L (3.5-5.1); Protein, Total 6.6 g/dL (6.4-8.2); Sodium Level 140 mmol/L (136-145)
[2022-03-04 11:00] VITALS: BP 115/69; PULSE 89; RESP 16; O2SAT 96
[2022-03-04 11:42] LABS: Bacteria 0 SEEN /hpf (None Seen); Mucous, Urine 0 SEEN /hpf (<or=2+); Red Blood Cells-Urine 0 SEEN /hpf (0-5)
[2022-03-04 11:46] LABS: Color, Urine Yellow (Yellow); Glucose, Dipstick Normal (Normal); Ketone-Dipstick Negative (Negative); Leukocyte Esterase-Dipstick 25 /ul (Negative); Nitrite-Dipstick Negative (Negative); Occult Blood-Urine 10 /ul (Negative); Protein-Dipstick 30 mg/dl (Negative); Specific Gravity, Urine 1.005 (1.002-1.030); Urine Bilirubin Dipstick Negative (Negative); Urine Clarity Clear (Clear); Urine Urobilinogen Normal (Normal)
[2022-03-04 11:59] LABS: Squamous Epithelial Cells - UA 0-5 SEEN /hpf (5-10); White Blood Cells 0-5 SEEN /hpf (0-5)
[2022-03-04 12:06] VITALS: BP 121/61
== END 2022-03-04 12:09 | disposition home or self-care (01) ==
PROVIDERS: Emergency Provider Emergency Medicine; PCP Internal Medicine; Visit Provider Emergency Medicine
DX: R53.1 Weakness (principal); G35 Multiple sclerosis; K51.90 Ulcerative colitis, unspecified, without complications; D68.51 Activated protein C resistance; E03.9 Hypothyroidism, unspecified; K58.9 Irritable bowel syndrome, unspecified; E28.2 Polycystic ovarian syndrome; Z87.19 Personal history of other diseases of the digestive system; Z79.899 Other long term (current) drug therapy
CPT/HCPCS: 74177; 80053; 81001; 83690; 85025; 96360; 96361; 99283; J7030; Q9967; A4216

== ENCOUNTER → 2022-03-14 | Outpatient (CLI) | payer MEDICARE, MEDICAID, SELFPAY | END | disposition home or self-care (01) | PROVIDERS: PCP Internal Medicine; Referring Provider Physician Assistant; Visit Provider Physician Assistant | DX: Z01.812 Encounter for preprocedural laboratory examination (principal); Z86.19 Personal history of other infectious and parasitic diseases | CPT/HCPCS: 87493 ==

== ENCOUNTER 2022-03-19 09:31 | Inpatient (IN) | payer MEDICARE, MEDICAID, SELFPAY ==
[2022-03-19 09:32] VITALS: BP 100/83; PULSE 129; RESP 18; TEMP 36.7; O2SAT 96; BMI 26.1
--- NOTE | 2022-03-19 09:49 | EDS_ITS ---
HPI History of Present Illness Chief Complaint: Abd Pain Detail of Chief Complaint: Vomiting, diarrhea Informant: patient Onset/Context/Timing Onset: Weeks (3 weeks) Context: Gradual Onset Timing: Waxes and wanes Current Severity: Moderate Maximum Severity: Moderate Narrative Narrative: Patient presents from Dr. Mobley's office due to ulcerative colitis flare. She states she was seen here 3 weeks ago with a flare and it has not subsided. She continues to have dry heaves with vomiting as well as diarrhea. She does occasionally have blood in her stool. She was seen by Dr. Mobley today for first-time visit. She appeared very dehydrated and tachycardic. He sent the patient to the emergency room for further evaluation, hydration, admission, with plan to scope the patient tomorrow. Patient reports some subjective fevers at home. She states she is really been lying in bed for the last 3 weeks and has lost 20 pounds. [facility] Medical History Anemia B12 deficiency Back pain Back problem Carpal tunnel syndrome Chronic bronchitis Dietary restriction Factor 5 Leiden mutation, heterozygous Frequent headaches Hemorrhoids History of factor V Leiden mutation History of steroid therapy Hypothyroidism Internal bleeding hemorrhoids Irritable bowel syndrome Non-smoker Pneumonia Polycystic ovaries PONV (postoperative nausea and vomiting) Post-menopausal Preventative health care Rectal bleed Seasonal allergies Thyroid disease Ulcerative colitis Home Medications naproxen sodium 220 mg capsule (Aleve) 220 mg PO BID PRN Pain 12/11/20 [History Last Taken Unknown] vedolizumab 300 mg intravenous solution (Entyvio) 300 mg .Route .Q6WK 12/11/20 [History Last Taken 02/13/22] cholecalciferol (vitamin D3) 1,250 mcg (50,000 unit) capsule 1,250 mcg PO QWEEK #4 caps 06/18/21 [Rx Last Taken Unknown] cyanocobalamin (vitamin B-12) 1,000 mcg/mL injection solution 100 mcg IM QMONTH 11/22/21 [History Last Taken 01/22/22] valacyclovir 500 mg tablet (Valtrex) 500 mg PO DAILY PRN Cold Sores 11/22/21 [History Last Taken Unknown] levothyroxine 50 mcg tablet 50 mcg PO DAILY thyroid #90 tabs 03/05/22 [Rx Last Taken Unknown] famotidine 20 mg tablet (Pepcid) 20 mg PO DAILY 03/12/22 [History Last Taken Unknown] Allergy/AdvReac Type Severity Reaction Status Date / Time infliximab [From Remicade] Allergy Severe Anaphylaxis Verified 03/19/22 09:38 zinc Allergy Severe Throwing Verified 03/19/22 09:38 up alprazolam Allergy Unknown Other Verified 03/19/22 09:38 hydrocodone [From [place]] Allergy Unknown Other Verified 03/19/22 09:38 dicyclomine Allergy Vomiting Verified 03/19/22 09:38 vancomycin Allergy Other Verified 03/19/22 09:38 balsalazide AdvReac Severe GI upset Verified 03/19/22 09:38 and Headache metronidazole [From Flagyl] AdvReac Severe mental Verified 03/19/22 09:38 status changes codeine AdvReac Intermediate Vomiting Verified 03/19/22 09:38 Penicillins AdvReac Mild Itching Verified 03/19/22 09:38 phenazopyridine AdvReac Unknown GI Upset Verified 03/19/22 09:38 azithromycin AdvReac Vomiting Verified 03/19/22 09:38 [From Zithromax Z-Del] mesalamine AdvReac Intolerance Verified 03/19/22 09:38 naproxen [From Naprosyn] AdvReac Other Verified 03/19/22 09:38 Sulfa (Sulfonamide AdvReac Vomiting Verified 03/19/22 09:38 Antibiotics) PROBIOTICS Allergy Other Uncoded 03/19/22 09:38 Family History Grandmother CVA (cerebral vascular accident) Father Alcoholism Sister Alcoholism Asthma Factor V Leiden Mother Depression CVA (cerebral vascular accident) Other Anxiety Surgical History History of appendectomy History of carpal tunnel surgery of left wrist History of colonoscopy (~2016) History of esophagogastroduodenoscopy (EGD) History of hemorrhoidectomy (~10/2018) History of hysterectomy History of oophorectomy History of rectal polypectomy Social History Smoking Status: Never smoker Electronic Cigarette Use: not used second hand exposure: No alcohol intake: never substance use type: does not use what type of physical activity do you participate in: walking frequency: daily duration: 15-30 minutes/day ROS ROS ED Constitutional Constitutional ED: Reports fever(s) and subjective; Denies chills Eyes Eyes: Denies change in vision or discharge from eye(s) ENT ENT ED: Denies discharge from eye(s), rhinorrhea or sore throat Cardiovascular Cardiovascular: Denies chest pain or palpitations Respiratory/Chest Respiratory/Chest: Denies cough or dyspnea Gastrointestinal Gastrointestinal: Reports abdominal pain, diarrhea, nausea and vomiting Genitourinary Genitourinary ED: Denies difficulty urinating or dysuria Musculoskeletal Musculoskeletal: Denies back pain or extremity pain Integumentary Denies Abrasions or rash Neurologic Neurologic: Reports weakness; Denies headache(s) Allergic/Immunologic Allergic/Immunologic ED: Denies lip swelling or urticaria EXAM Physical Exam Const Vital Signs: 03/19/22 09:32 Temperature 98.0 F Temperature Source Temporal Pulse Rate 129 H Respiratory Rate 18 Blood Pressure 100/83 H Blood Pressure Mean 88 Pulse Ox 96 Oxygen Delivery Method Room Air Positive well nourished and well developed General Appearance ED: well developed HEENT Reports normocephalic, head/scalp atraumatic and dry mucous membranes Mouth ED: Yes dry mucous membranes Mouth: dry mucous membranes Eyes PERRL and EOMs intact bilaterally Neck supple Chest Wall inspection of chest normal and palpation of chest normal Resp normal respiratory effort and clear to auscultation bilaterally Cardio regular rhythm Rate: tachycardic GI non-tender Auscultation: hypoactive bowel sounds Palpation: soft Extremity normal to inspection Neuro oriented x3 and no sensory deficits noted Sensorium / Orientation: alert Motor Exam: strength 5/5 throughout Psych mental status grossly normal Skin no rashes or lesions noted MDM MDM MDM Narrative Medical decision making narrative: Patient given IV fluids. She is given Zofran. Lab work obtained. Lab Data Attestation: I reviewed the patient's lab results. Labs: Laboratory Results - last 24 hr 03/19/22 03/19/22 10:09 10:09 WBC 11.3 H RBC 3.92 L Hgb 10.3 L Hct 33.5 L MCV 85.5 MCH 26.3 L MCHC 30.7 L RDW Std Deviation 48.3 H RDW Coeff of Nancie 15.5 H Plt Count 584 H MPV 8.7 Immature Gran % (Auto) 1.500 H Neut % (Auto) 75.1 H Lymph % (Auto) 13.5 L [place] % (Auto) 7.4 Eos % (Auto) 1.9 Baso % (Auto) 0.6 Absolute Neuts (auto) 8.5 H Absolute Lymphs (auto) 1.52 Nucleated RBC % 0 Sodium 140 Potassium 3.8 Chloride 106 Carbon Dioxide 28.0 Anion Gap 6 BUN 18 Creatinine 1.04 H Estim Creat Clear Calc 49.05 Est GFR (MDRD) Af Amer 69 Est GFR (MDRD) Non-Af 57 L BUN/Creatinine Ratio 17.3 Glucose 115 H Calcium 8.9 Total Bilirubin 0.60 Direct Bilirubin 0.14 AST 10 L ALT 13 Alkaline Phosphatase 111 Total Protein 6.6 Albumin 2.6 L Globulin 4.0 Lipase 54 L Treatment and Re-Evaluation Narrative: CBC and chemistry studies largely unremarkable at this time. Creatinine only slightly elevated over baseline. At this time patient has continued weakness and difficult time caring for herself. We will discussed with hospitalist regarding observation overnight for further hydration and plan for scope tomorrow with Dr. Mobley. Discharge Plan Triage Chief Complaint: Abd Pain ED Provider: Griselda Goodson Dx/Rx/DC Orders Clinical Impression: Diarrhea, Weakness Prescriptions: No Action naproxen sodium [Aleve] 220 mg capsule 220 mg PO BID PRN (Reason: Pain) Entyvio 300 mg recon soln 300 mg .Route .Q6WK Rx Instructions: IV cholecalciferol (vitamin D3) 1,250 mcg (50,000 unit) capsule 1,250 mcg PO QWEEK Qty: 4 5RF cyanocobalamin (vitamin B-12) 1,000 mcg/mL solution 100 mcg IM QMONTH valacyclovir [Valtrex] 500 mg tablet 500 mg PO DAILY PRN (Reason: Cold Sores) famotidine [Pepcid] 20 mg Tablet 20 mg PO DAILY levothyroxine 50 mcg tablet 50 mcg PO DAILY Qty: 90 1RF Primary Care Provider: Willy Ponce Referrals: Willy Ponce MD [Primary Care Provider] - Disposition Disposition: [facility]
[2022-03-19] MEDS: 0.9% Normal Saline 1,000 ML 1000 ML IV (10:05)
[2022-03-19] MEDS: Ondansetron 4 MG/2 ML Vial IV ×2 (10:05→18:13)
[2022-03-19 10:14] LABS: Absolute Lymphocyte Count 1.52 X10^3/uL (0.83-4.51); Absolute Neutrophil Count 8.5 X10^3/uL (2.0-7.7); Basophil# 0.07 X10^3/uL; Basophil% 0.6 % (0-1); Eosinophil# 0.22 X10^3/uL; Eosinophils% 1.9 % (0-5); Hematocrit 33.5 % (37-47); Hemoglobin 10.3 g/dL (12.0-15.0); Lymphocyte # 1.52 X10^3/ul (0.83-4.51); Lymphocyte % 13.5 % (19-41); Mean Corp Hgb Conc 30.7 g/dL (32-36); Mean Corpuscular Hgb 26.3 pg (27.0-32.0); Mean Corpuscular Volume 85.5 fL (81-99); Mean Platelet Vol. 8.7 fl (6.2-12.0); Monocyte# 0.83 X10^3/uL; Monocyte% 7.4 % (0-10); NRBC Flagged by Analyzer 0 % (0-5); Neutrophil # 8.48 X10^3/uL (2.7-7.7); Neutrophil % 75.1 % (47-70); Platelet Count 584 K/mm3 (150-450); RBC Distribution Width CV 15.5 % (11.6-14.6); RBC Distribution Width SD 48.3 fl (35.1-43.9); Red Blood Count 3.92 M/mm3 (4.2-5.4); White Blood Count 11.3 K/mm3 (4.4-11.0)
[2022-03-19 10:30] LABS: AST(SGOT) 10 U/L (15-37); Alanine Aminotransfer ALT/SGPT 13 U/L (13-56); Albumin, Serum 2.6 g/dL (3.2-5.0); Alkaline Phosphatase 111 U/L (45-117); Anion Gap 6 (5-15); BUN 18 mg/dL (7-18); BUN/Creat Ratio 17.3 RATIO (10-20); Bilirubin, Direct 0.14 mg/dL (0.00-0.30); Calcium,Total 8.9 mg/dL (8.5-10.1); Chloride 106 mmol/L (98-107); Creatinine, Serum 1.04 mg/dL (0.55-1.02); EST Glomerular Filtration Rate 57 mL/min (>60); Est Glom Filt Rate - Afr Amer 69 mL/min (>60); Estimated Creatinine Clearance 49.05 ml/min; Glucose 115 mg/dL (74-106); Lipase 54 U/L (73-393); Potassium 3.8 mmol/L (3.5-5.1); Protein, Total 6.6 g/dL (6.4-8.2); Sodium Level 140 mmol/L (136-145)
[2022-03-19 11:30] VITALS: BP 125/69; PULSE 103; RESP 15; TEMP 36.2; O2SAT 96
[2022-03-19] MEDS: 0.9% Normal Saline 1,000 ML 150 ML IV ×3 (11:30→23:12)
[2022-03-19 11:42] LABS: Mucous, Urine 0 SEEN /hpf (<or=2+); Red Blood Cells-Urine 0 SEEN /hpf (0-5)
[2022-03-19 11:45] LABS: Color, Urine Yellow (Yellow); Glucose, Dipstick Normal (Normal); Ketone-Dipstick 15 mg/dl (Negative); Leukocyte Esterase-Dipstick 25 /ul (Negative); Nitrite-Dipstick Negative (Negative); Occult Blood-Urine Negative /ul (Negative); Protein-Dipstick 30 mg/dl (Negative); Urine Bilirubin Dipstick Negative (Negative); Urine Clarity Sl. Cloudy (Clear); Urine Urobilinogen Normal (Normal)
[2022-03-19 12:24] LABS: Erythrocyte Sedimentation Rate 42 mm/hr (0-30)
[2022-03-19 12:29] VITALS: BMI 27.1
[2022-03-19 12:33] LABS: Bacteria 1+ /hpf (None Seen); Squamous Epithelial Cells - UA 0-5 SEEN /hpf (5-10); White Blood Cells 5-10 SEEN /hpf (0-5)
[2022-03-19 12:47] LABS: Lactic Acid 0.9 mmol/L (0.4-1.9)
[2022-03-19 13:04] VITALS: BP 129/67; PULSE 97; RESP 14; TEMP 37.1; O2SAT 94
[2022-03-19 13:10] VITALS: O2SAT 97
--- NOTE | 2022-03-19 13:41 | PCM.HP.STD ---
HPI - General General Date of Admission: 03/19/22 HPI Narrative CHANEL PRASAD, is a 62 F who presents to the hospital from the resource coordinator office secondary to dehydration and continued abdominal pain and diarrhea from her ulcerative colitis. She has had difficulty getting this under control, initially she was diagnosed with C. difficile and then was found to have ulcerative colitis. She has not tolerated multiple oral medications for maintenance and she has not tolerated Entyvio. Today she was supposed to have her initial consultation with a [facility] gastro[facility]ology to potentially start Stelara however she was sent to the ER for steroids to try to get her current flare under control. She does also have MS and is complaining of some weakness. This is not uncommon in the setting of another illness to have a pseudo flare for MS. She did recently finish a steroid taper. [facility] Medical History (Updated 03/19/22 @ 12:52 by Dinora Acosta) Anemia B12 deficiency Back pain Back problem Carpal tunnel syndrome Chronic bronchitis Dietary restriction Factor 5 Leiden mutation, heterozygous Frequent headaches Hemorrhoids History of factor V Leiden mutation History of steroid therapy Hypothyroidism Internal bleeding hemorrhoids Irregular heartbeat Irritable bowel syndrome Non-smoker Pneumonia Polycystic ovaries PONV (postoperative nausea and vomiting) Post-menopausal Preventative health care Rectal bleed Seasonal allergies Thyroid disease Ulcerative colitis Home Medications naproxen sodium 220 mg capsule (Aleve) 220 mg PO BID PRN Pain 12/11/20 [History Last Taken Unknown] vedolizumab 300 mg intravenous solution (Entyvio) 300 mg .Route .Q6WK Check with primary doctor 12/11/20 [History Last Taken 02/14/22] cyanocobalamin (vitamin B-12) 1,000 mcg/mL injection solution 100 mcg IM QMONTH Check with primary doctor 11/22/21 [History Last Taken 01/22/22] valacyclovir 500 mg tablet (Valtrex) 500 mg PO DAILY PRN Cold Sores 11/22/21 [History Last Taken Unknown] levothyroxine 50 mcg tablet 50 mcg PO DAILY thyroid #90 tabs 03/05/22 [Rx Last Taken 03/19/22 06:00] famotidine 20 mg tablet (Pepcid) 20 mg PO DAILY Check with primary doctor 03/12/22 [History Last Taken Unknown] Allergy/AdvReac Type Severity Reaction Status Date / Time infliximab [From Remicade] Allergy Severe Anaphylaxis Verified 03/19/22 09:38 zinc Allergy Severe Throwing Verified 03/19/22 09:38 up alprazolam Allergy Unknown Other Verified 03/19/22 09:38 hydrocodone [From [place]] Allergy Unknown Other Verified 03/19/22 09:38 dicyclomine Allergy Vomiting Verified 03/19/22 09:38 vancomycin Allergy Other Verified 03/19/22 09:38 balsalazide AdvReac Severe GI upset Verified 03/19/22 09:38 and Headache metronidazole [From Flagyl] AdvReac Severe mental Verified 03/19/22 09:38 status changes codeine AdvReac Intermediate Vomiting Verified 03/19/22 09:38 Penicillins AdvReac Mild Itching Verified 03/19/22 09:38 phenazopyridine AdvReac Unknown GI Upset Verified 03/19/22 09:38 azithromycin AdvReac Vomiting Verified 03/19/22 09:38 [From Zithromax Z-Del] mesalamine AdvReac Intolerance Verified 03/19/22 09:38 naproxen [From Naprosyn] AdvReac Other Verified 03/19/22 09:38 Sulfa (Sulfonamide AdvReac Vomiting Verified 03/19/22 09:38 Antibiotics) PROBIOTICS Allergy Other Uncoded 03/19/22 09:38 Family History Grandmother CVA (cerebral vascular accident) Father Alcoholism Sister Alcoholism Asthma Factor V Leiden Mother Depression CVA (cerebral vascular accident) Other Anxiety Surgical History History of appendectomy History of carpal tunnel surgery of left wrist History of colonoscopy (~2016) History of esophagogastroduodenoscopy (EGD) History of hemorrhoidectomy (~10/2018) History of hysterectomy History of oophorectomy History of rectal polypectomy Social History Smoking Status: Never smoker Electronic Cigarette Use: not used second hand exposure: No alcohol intake: never substance use type: does not use what type of physical activity do you participate in: walking frequency: daily duration: 15-30 minutes/day ROS Constitutional Constitutional: Reports fever(s) and weakness; Denies chills, fatigue or malaise Eyes Eyes: Denies blurry vision ENT HEENT: Denies headache(s) or nasal discharge Cardiovascular Cardiovascular: Denies chest pain, dyspnea on exertion or syncope Respiratory/Chest Respiratory/Chest: Denies cough, shortness of breath at rest or shortness of breath with exertion Gastrointestinal Gastrointestinal: Reports abdominal pain, diarrhea, nausea and vomiting; Denies constipation Genitourinary Genitourinary: Denies dysuria Neurologic Neurologic: Denies focal weakness, numbness or tremor(s) Psychiatric Psychiatric: Denies anxiety or depression Vital Signs Vital Signs Vital Signs: 03/19/22 09:32 03/19/22 11:30 03/19/22 13:04 Temperature 98.0 F 97.1 F L 98.7 F Temperature Source Temporal Temporal Oral Pulse Rate 129 H 103 H 97 Respiratory Rate 18 15 14 Blood Pressure 100/83 H 125/69 H 129/67 H Blood Pressure Mean 88 87 87 Blood Pressure Source Monitor Blood Pressure Position Semi-Fowlers Blood Pressure Location Right Arm Pulse Ox 96 96 94 Oxygen Delivery Method Room Air Room Air Room Air Weight Weight: 158 lb 5 oz Body Mass Index (BMI) 27.1 Physical Exam Narrative General: Alert, Oriented x3, Cooperative, No apparent distress HEENT: Atraumatic, PERRLA, EOMI, Normocephalic Oral: Dry mucosa Neck: Supple, No JVD Lungs: Clear to auscultation, Normal air movement, No rhonchi, No wheeze, No rales Cardiovascular: Regular rate, Regular Rhythm, Normal S1, Normal S2, No murmurs Abdomen: Soft, Non Tender, Non-Distended, No Hepato-splenomegaly Extremities: No edema, Capillary Refill Less than 3 Seconds Skin: No rashes, No breakdown Musculoskeletal: No Tenderness to Palpation of Joints or Extremities Neurological: Cranial nerves II-XII grossly intact, Motor Exam 5/5 strength throughout, Sensory exam intact to light touch and pain Psych/Mental Status: Normal Affect, Appropriate Results Lab / Micro Data Result Diagrams: 03/19/22 10:09 03/19/22 10:09 Labs: Laboratory Results - last 24 hr 03/19/22 10:09: WBC 11.3 H, RBC 3.92 L, Hgb 10.3 L, Hct 33.5 L, MCV 85.5, MCH 26.3 L, MCHC 30.7 L, RDW Std Deviation 48.3 H, RDW Coeff of Nancie 15.5 H, Plt Count 584 H, MPV 8.7, Immature Gran % (Auto) 1.500 H, Neut % (Auto) 75.1 H, Lymph % (Auto) 13.5 L, [place] % (Auto) 7.4, Eos % (Auto) 1.9, Baso % (Auto) 0.6, Absolute Neuts (auto) 8.5 H, Absolute Lymphs (auto) 1.52, Nucleated RBC % 0 03/19/22 10:09: Sodium 140, Potassium 3.8, Chloride 106, Carbon Dioxide 28.0, Anion Gap 6, BUN 18, Creatinine 1.04 H, Estim Creat Clear Calc 49.05, Est GFR (MDRD) Af Amer 69, Est GFR (MDRD) Non-Af 57 L, BUN/Creatinine Ratio 17.3, Glucose 115 H, Calcium 8.9, Total Bilirubin 0.60, Direct Bilirubin 0.14, AST 10 L, ALT 13, Alkaline Phosphatase 111, Total Protein 6.6, Albumin 2.6 L, Globulin 4.0, Lipase 54 L 03/19/22 10:09: ESR 42 H 03/19/22 10:09: C-React Prot Ext Range 115.00 H 03/19/22 11:30: Urine Color Yellow, Urine Clarity Sl. Cloudy, Urine pH 6.0, Ur Specific [place] 1.020, Urine Protein 30 H, Urine Glucose (UA) Normal, Urine Ketones 15 H, Urine Occult Blood Negative, Urine Nitrite Negative, Urine Bilirubin Negative, Urine Urobilinogen Normal, Ur Leukocyte Esterase 25 H, Urine RBC 0 SEEN, Urine WBC 5-10 SEEN, Ur Squamous Epith Cells 0-5 SEEN, Urine Bacteria 1+, Urine Mucus 0 SEEN 03/19/22 12:12: Lactic Acid 0.9 Assessment & Plan Assessment/Plan (1) Ulcerative colitis: PLAN: Plan 1. Dehydration secondary to ulcerative colitis flare leading to pseudo flare of her MS ? Continue with aggressive IV fluids ? Consult gastroenterology ? Continue with IV steroids ? As needed pain medications 2. Hypothyroidism ? Stable ? Continue Synthroid 3. History of MS ? Not currently on any medications just being monitored as an outpatient DVT: SCDs Charges/Coding Visit Charges Inpatient E&M: 88262 Init Hosp L2
[2022-03-19] MEDS: 0.9% Saline Lock 10 ML Syringe IV ×3 (13:52→22:24)
[2022-03-19] MEDS: Polyethylene Glycol 3350 BOWEL PREP PO (16:25)
[2022-03-19 19:46] VITALS: BP 141/77; PULSE 106; RESP 16; TEMP 36.9; O2SAT 94
[2022-03-20] VITALS (10 sets, daily range): BP systolic 101–143; BP diastolic 46–94; PULSE 90–114; RESP 14–18; TEMP 36.8–37.3; O2SAT 16–98
--- NOTE | 2022-03-20 | EGD_PTH ---
PATIENT: CHANEL PRASAD LOC: MS3 U#:[id number] AGE/SX: 62/F ROOM: MS316 RE03/19/[address]: Dr. Hugh Colon MD : 1960 BED: 1 DIS: 03/21/2022 SPEC #: [id number] RECD: 03/20/22 10:19 STATUS: HEBER MARTINEZ #: [id number] INA: 03/20/22 00:[address]: Mike Mobley DEPT: SURGICAL PATHOLOGY RECD BY: Dakota Molina ENTERED: 03/20/22 10:19 SP TYPE: EGD BIOPSY OTHR DR: MD Dr. Hugh Dailey MD Tissues: A - Duodenum, NOS B - Ileum, NOS C - COLON BIOPSY D - Rectum, NOS Procedures: Surgery Specimen Level IV Comments: @ Ordering doctor for SUIV edited from to @ by RGOOD at 03/20/22 1333 @ Submitting doctor edited from to @ by RGOOD at 03/20/22 1333 HEADER OPERATION: Colonoscopy, EGD ([facility] [place] biopsy PRE-OP DIAGNOSIS: Ulcerative colitis TISSUE SUBMITTED: A - Duodenal ulcer biopsy, B - Terminal ileum biopsy, C - Random colonic biopsy, D - Rectal biopsy MICROSCOPIC DIAGNOSIS A. Duodenal ulcer, biopsy: Ulcer with associated acute and chronic inflammation and early granulation. B. Terminal ileum, biopsy: No pathologic change. C. Colon, random biopsy: Chronic active colitis pattern of injury. No evidence of dysplasia. See comment. D. Rectum, biopsy: Chronic active colitis pattern of injury. No evidence of dysplasia. See comment. AM:shayy 03/21/2022 COMMENT C & D. The findings are consistent with patient?s history of ulcerative colitis. Clinical correlation is suggested. The activity is moderate. MICROSCOPIC DESCRIPTION Slides are reviewed. GROSS DESCRIPTION A - Received in fixative is one container labeled with the patient's name and designated duodenal ulcer biopsy. The specimen consists of one irregular fragment of light samuel soft tissue that measures 0.6 x 0.2 x 0.1 cm. The specimen is totally submitted in one cassette. B - Received in fixative is one container labeled with the patient's name and designated terminal ileum. The specimen consists of multiple irregular fragments of light samuel soft tissue that in aggregate measure 0.7 x 0.2 x 0.1 cm. The specimen is totally submitted in one cassette. C - Received in fixative is one container labeled with the patient's name and designated random colon biopsy. The specimen consists of multiple irregular fragments of light samuel soft tissue that in aggregate measure 2 x 1.2 x 0.1 cm. The specimen is totally submitted in one cassette. D - Received in fixative is one container labeled with the patient's name and designated rectal biopsy. The specimen consists of multiple irregular fragments of light samuel soft tissue that in aggregate measure 0.7 x 0.3 x 0.1 cm. The specimen is totally submitted in one cassette. / AM:shayy 03/20/2022 TC:2 CPT: 26156 x4
[2022-03-20] MEDS: 0.9% Normal Saline 1,000 ML 150 ML IV ×4 (05:59→21:33)
--- NOTE | 2022-03-20 06:00 | EKG12_ITS ---
Test Reason : PRE-OP Blood Pressure : / mmHG Vent. Rate : 097 BPM Atrial Rate : 097 BPM P-R Int : 132 ms QRS Dur : 090 ms QT Int : 356 ms P-R-T Axes : 058 004 015 degrees QTc Int : 452 ms Normal sinus rhythm Nonspecific ST abnormality Abnormal ECG Confirmed by DAWN BLACKWELL, VEGA ([id number]), photography editor MILAN GARCIA ([id number]) on 03/21/2022 8:16:24 AM Referred By: LUCINDA Confirmed By:VEGA SEYMOUR MD
[2022-03-20] MEDS: 0.9% Saline Lock 10 ML Syringe IV ×4 (06:08→21:33)
[2022-03-20] MEDS: Ondansetron 4 MG/2 ML Vial IV (06:08)
[2022-03-20 06:09] LABS: Absolute Lymphocyte Count 1.18 X10^3/uL (0.83-4.51); Absolute Neutrophil Count 2.7 X10^3/uL (2.0-7.7); Basophil# 0.02 X10^3/uL; Basophil% 0.5 % (0-1); Hematocrit 28.4 % (37-47); Hemoglobin 8.5 g/dL (12.0-15.0); Lymphocyte # 1.18 X10^3/ul (0.83-4.51); Lymphocyte % 27.3 % (19-41); Mean Corp Hgb Conc 29.9 g/dL (32-36); Mean Corpuscular Hgb 25.5 pg (27.0-32.0); Mean Corpuscular Volume 85.3 fL (81-99); Monocyte# 0.29 X10^3/uL; Monocyte% 6.7 % (0-10); NRBC Flagged by Analyzer 0 % (0-5); Neutrophil # 2.74 X10^3/uL (2.7-7.7); Neutrophil % 63.2 % (47-70); Platelet Count 536 K/mm3 (150-450); RBC Distribution Width CV 15.5 % (11.6-14.6); RBC Distribution Width SD 48.4 fl (35.1-43.9); Red Blood Count 3.33 M/mm3 (4.2-5.4); White Blood Count 4.3 K/mm3 (4.4-11.0)
[2022-03-20 06:22] LABS: International Normalized Ratio 1.1; Prothrombin Time (Protime)PT. 13.8 SECONDS (11.7-14.9)
[2022-03-20 06:30] LABS: Partial Thromboplast Time < 24.0 Seconds (24.1-36.2)
[2022-03-20 06:50] LABS: ALB/GLOB Ratio 0.6 RATIO (0.9-2.4); AST(SGOT) 9 U/L (15-37); Alanine Aminotransfer ALT/SGPT 10 U/L (13-56); Albumin, Serum 2.1 g/dL (3.2-5.0); Alkaline Phosphatase 85 U/L (45-117); Anion Gap 4 (5-15); BUN 9 mg/dL (7-18); BUN/Creat Ratio 13.3 RATIO (10-20); Calcium,Total 8.5 mg/dL (8.5-10.1); Chloride 110 mmol/L (98-107); Creatinine, Serum 0.68 mg/dL (0.55-1.02); EST Glomerular Filtration Rate 94 mL/min (>60); Est Glom Filt Rate - Afr Amer 114 mL/min (>60); Estimated Creatinine Clearance 75.02 ml/min; Globulin 3.5 g/dL (2.2-4.2); Glucose 133 mg/dL (74-106); Protein, Total 5.6 g/dL (6.4-8.2); Sodium Level 139 mmol/L (136-145); Thyroid Stim Hormone (TSH) 0.33 uIU/mL (0.358-3.74)
--- NOTE | 2022-03-20 08:41 | HP.PCM_ITS ---
History and Physical Date of Admission: 03/20/22 [facility] [address] [place] [address] OFFICE VISIT Date of Service:? 03/19/22 MR#: [id number] Acct: [id number] Name:DEVIKA CHAVEZ Rep #: [id number] : 1960 ? ? Provider: Mike Friend, DO Age/Sex:? 62/F ? ? [place] [facility] [place] Status: Signed Intake Vital Signs ? 12/12/2213:17 03/04/2209:20 Height 5 ft 4 in 5 ft 4 in Intake Visit Reasons:?Colitis Allergies infliximab [From Remicade] Allergy (Severe, Verified 03/04/22 09:22) 'Allergic Reaction'zinc Allergy (Severe, Verified 03/04/22 09:22) Throwing upalprazolam Allergy (Unknown, Verified 03/04/22 09:22) Unknownhydrocodone [From [place]] Allergy (Unknown, Verified 03/04/22 09:22) Unknowndicyclomine Allergy (Verified 03/12/22 15:27) Vomitingvancomycin Allergy (Verified 03/12/22 15:26) Otherbalsalazide Adverse Reaction (Severe, Verified 03/04/22 09:22) GI upset and Headachemetronidazole [From Flagyl] Adverse Reaction (Severe, Verified 03/04/22 09:22) mental status changesprednisone Adverse Reaction (Severe, Verified 03/04/22 09:22) locks up musclescodeine Adverse Reaction (Intermediate, Verified 03/04/22 09:22) VomitingPenicillins Adverse Reaction (Mild, Verified 03/04/22 09:22) Itchingphenazopyridine Adverse Reaction (Unknown, Verified 03/04/22 09:22) GI Upsetazithromycin [From Zithromax Z-Del] Adverse Reaction (Verified 03/04/22 09:22) Vomitingmesalamine Adverse Reaction (Verified 03/04/22 09:22) Intolerancenaproxen [From Naprosyn] Adverse Reaction (Verified 03/04/22 09:22) OtherSulfa (Sulfonamide Antibiotics) Adverse Reaction (Verified 03/04/22 09:22) VomitingPROBIOTICS Allergy (Uncoded 03/04/22 09:22) Other Medications naproxen sodium 220 mg capsule (Aleve) 220 mg PO BID PRN Pain 12/11/20 [History Confirmed 03/12/22] vedolizumab 300 mg intravenous solution (Entyvio) 300 mg .Route .Q6WK 12/11/20 [History Confirmed 03/12/22] cholecalciferol (vitamin D3) 1,250 mcg (50,000 unit) capsule 1,250 mcg PO QWEEK #4 caps 06/18/21 [Rx Confirmed 03/12/22] cyanocobalamin (vitamin B-12) 1,000 mcg/mL injection solution 100 mcg IM QMONTH 11/22/21 [History Confirmed 03/12/22] valacyclovir 500 mg tablet (Valtrex) 500 mg PO DAILY PRN Cold Sores 11/22/21 [History Confirmed 03/12/22] levothyroxine 50 mcg tablet 50 mcg PO DAILY thyroid #90 tabs 03/05/22 [Rx Confirmed 03/12/22] famotidine 20 mg tablet (Pepcid) 20 mg PO DAILY 03/12/22 [History Confirmed 03/12/22] PFSH Medical History?(Updated 03/19/22 @ 09:03 by Claire Chandra) Anemia B12 deficiency Back pain Back problem Carpal tunnel syndrome Chronic bronchitis Dietary restriction Factor 5 Leiden mutation, heterozygous Frequent headaches Hemorrhoids History of factor V Leiden mutation History of steroid therapy Hypothyroidism Internal bleeding hemorrhoids Irritable bowel syndrome Non-smoker Pneumonia Polycystic ovaries PONV (postoperative nausea and vomiting) Post-menopausal Preventative health care Rectal bleed Seasonal allergies Thyroid disease Ulcerative colitis Surgical History?(Updated 03/12/22 @ 15:33 by Simin Muniz) History of appendectomy History of carpal tunnel surgery of left wrist History of colonoscopy (~2016) History of esophagogastroduodenoscopy (EGD) History of hemorrhoidectomy (~10/2018) History of hysterectomy History of oophorectomy History of rectal polypectomy Family History? Grandmother CVA (cerebral vascular accident)Father AlcoholismSister Alcoholism Asthma Factor V LeidenMother Depression CVA (cerebral vascular accident)Other Anxiety Social History? Smoking Status:? Never smoker Electronic Cigarette Use:? not used second hand exposure:? No alcohol intake:? never substance use type:? does not use what type of physical activity do you participate in:? walking frequency:? daily duration:? 15-30 minutes/day HPI HPI Details: DEVIKA PRASAD, is a 62 F who presents to the office today for Initial consult. Devika established with this clinic 03.19.22 with a previous diagnosis of IBD from [facility] in 2018 with a history of CDI 2021. She was started on Entyvio with levels drawn .08.11 with a level of 3 without antibody formation; [facility] recommended reducing time between infusions, this was not able to be achieved. She has required use of prednisone to help manage symptoms of rectal pressure, frequent BM 15-20/day with intermittent blood. Previously utilized medications include mesalamine, balsalazide and steroids , ineffective and cause her to feel unwell. Rowasa enemas and asacol 2019, fatigue and headaches. Remicade attempted with reaction of SOB, tongue swelling and increased pulse. PMH ruslan?s thyroiditis/hypothyroid; MS; pt reports Factor V mutation. Established with psychology. PSH hemorrhoidectomy; right ovary removal 1986; total hysterectomy 1999. Colonoscopy with [facility] 03.12.17 for screening purposes noting one inflammatory polyp EGD and colonoscopy with Dr. Jean Pierre Nam 11.30.18 for diarrhea. EGD found small hiat al hernia, LA Grade A esophagitis without dysplasia; duodenitis; chronic gastritis. Colonoscopy found pathology with sigmoid diverticulosis; pseudomembranous entercolitis and mucosal ulceration of the entire colon with pathology changes of active colitis with mucosal ulceration, plasmacytosis, acute cryptitis, crypt microabscess formation, crypt distortion and glandular drop out. Colonoscopy 02.17.20 with [facility] for diarrhea ascending and transverse colon without pathologic abnormality. Sigmoid and rectum show chronic active colitis without granuloma or dysplasia Biochemical workup [facility] Entyvio level 3, vitamin D25 47, TIBC Vit B12 H1526, Iron L35, transferrin sat L11 Stool studies C.Difficile positive, treated with vancomycin but was unable to complete course r/t fever, chills, diarrhea and emesis. Stool study 02.07.22 C.Difficile PCR negative. Biochemical workup with [facility] CRP H5.4. CT abd/pel [facility] 03.04.22 noting collapsed colonic loops with mild/moderate mucosal edema of bello with neovascularization along full length likely r/t chronic disease with possible acute on chronic process possibility; colonic diverticula; small umbilical hernia. C.Difficile 03.14.22 without infection. At initial presentation she reports she was having difficulty starting in January following Entyvio infusion. She then began tapering prednisone and began having nausea and emesis, weakness and weight loss of 20lbs. Continues to have loose stools with fecal incontinence with blood. Documentation mentions both UC and Crohn?s. ROS Const Constitutional: No anorexia, chills, excessive sweating, fever(s), frequent falls, snoring, weight change or change in appetite Eyes Eyes: No change in vision, double vision, irritation, discharge, vision loss, eye pain or spots in vision ENT ENT: No abnormal hearing, ear discharge, hearing loss, nasal congestion, nasal obstruction, nose pain, sinus pressure, facial pain, lip swelling or throat swelling Resp Respiratory: No cough, change in phlegm color, chest congestion, excessive phlegm production, snoring or wheezing Cardio Cardiology: No chest pain with exertion, leg pain with exertion, excessive sweating, generalized swelling, lightheadedness or orthopnea Gastro GI: Positive for change in bowel habits; No bloating, change in stool character, diarrhea, feeling full early or excessive flatus Genitourinary-Female: No urinary incontinence, urinary frequency, urinary retention, blood in urine, Frequent nighttime urination/ nocturia, post void dribbling or hot flashes Musc Musculoskeletal: No deformity, joint swelling, limited range of motion, muscle weakness, decreased muscle mass or leg pain with exertion Skin Skin: No nail changes, change in skin color, redness, excessive hair growth, itchy eyes, skin pain or skin swelling Neuro Neurology: No abnormal hearing, abnormal movements, behavioral changes, dizziness, frequent falls or lack of coordination Psych Psychiatric: No lack of enjoyment, No behavioral changes, No change in appetite, No hopelessness, No irritability, No mood swings and No panic attacks Endo Endocrine: No cold intolerance, excessive sweating, flushing, heat intolerance, increased hunger, increased urine leakage or weight change Aller/Imm Allergy/Immunologic: No food intolerance, itchy eyes, lip swelling, seasonal allergy symptoms, throat swelling or wheezing Miguelito/Lymp Hematologic/Lymphatic: No easy bleeding, easy bruising or enlarged lymph nodes Exam Const General: cooperative, comfortable and no acute distress Orientation: alert, awake and oriented x3 HENMT Head: normal to inspection, normocephalic and atraumatic Ears: hearing grossly normal bilaterally Neck Neck: normal visual inspection, full ROM, no lymphadenopathy and supple Neck mass: No Thyroid: thyroid normal Resp Effort & Inspection: normal respiratory effort and able to speak in complete sentences Auscultation: Bilateral: Clear to Auscultation Cardio Rate: regular rate Rhythm: regular rhythm Heart Sounds: S1 normal and S2 normal GI Palpation: soft (Nontender, no palpable organomegaly.) Neuro General: patient alert, patient awake, patient oriented x3, moves all extremities and CN's II-XI intact bilaterally Extrem General: no clubbing, cyanosis or edema Psych Appearance: grossly normal Mental Status: mental status grossly normal Mood: congruent mood Affect: normal affect Quality Reporting Tobacco Screening ([facility] 138) Smoking Status: Never smoker Assessment and Plan Assessment and Plan (1) Ulcerative colitis: ?Status:?Chronic ?Plan: She appears to be presenting as moderate to severe ulcerative colitis.? Her last CT scan did show inflammatory changes from the descending colon all the way down into the rectosigmoid junction and into the rectum.? From the images it looks as if she has burnt out ulcerative colitis.? She just recently finished a steroid taper and is now off of steroids in awaiting Stelara infusion.? She is tachycardic to 120s in the office with mildly low blood pressure into the 100s systolic.? When I send her down to the emergency room for evaluation for dehydration and severe ulcerative colitis.? I think is a good idea for her to be on Stelara as Entyvio is not working.? I will reassess her in the emergency room. I have re-examined the patient. There are no clinical changes since date of exam.
--- NOTE | 2022-03-20 09:27 | OP.EGD_ITS ---
Patient Name: Devika Champion Procedure Date: 03/20/2022 8:46 AM Date of : 1960 Age: 62 Procedure: Upper GI endoscopy Indications: Failure to respond to medical treatment Providers: Mike Mobley DO Medicines: Monitored Anesthesia Care Patient Profile: This is a 62 year old female. Refer to note in patient chart for documentation of history and physical. Patient has symptoms of acute epigastric abdominal pain. Complications: No immediate complications. Procedure: Pre-Anesthesia Assessment: - Prior to the procedure, a History and Physical was performed, and patient medications and allergies were reviewed. The risks and benefits of the procedure and the sedation options and risks were discussed with the patient. All questions were answered and informed consent was obtained. Patient identification and proposed procedure were verified by the physician in the pre-procedure area. Mental Status Examination: alert and oriented. Airway Examination: normal oropharyngeal airway and neck mobility. Respiratory Examination: clear to auscultation. CV Examination: normal. Prophylactic Antibiotics: The patient does not require prophylactic antibiotics. Prior Anticoagulants: The patient has taken no previous anticoagulant or antiplatelet agents. ASA Grade Assessment: II - A patient with mild systemic disease. After reviewing the risks and benefits, the patient was deemed in satisfactory condition to undergo the procedure. The anesthesia plan was to use moderate sedation / analgesia (conscious sedation). Immediately prior to administration of medications, the patient was re-assessed for adequacy to receive sedatives. The heart rate, respiratory rate, oxygen saturations, blood pressure, adequacy of pulmonary ventilation, and response to care were monitored throughout the procedure. The physical status of the patient was re-assessed after the procedure. After obtaining informed consent, the endoscope was passed under direct vision. Throughout the procedure, the patient's blood pressure, pulse, and oxygen saturations were monitored continuously. The colonoscope was introduced through the mouth, and advanced to the second part of duodenum. The upper GI endoscopy was accomplished without difficulty. The patient tolerated the procedure well. Scope In: 9:01:15 AM Scope Out: 9:04:43 AM Total Procedure Duration Time 0 hours 3 minutes 28 seconds Findings: LA Grade A (one or more mucosal breaks less than 5 mm, not extending between tops of 2 mucosal folds) esophagitis with bleeding was found 35 to 38 cm from the incisors. A medium-sized hiatal hernia was present. Patchy mildly erythematous mucosa without bleeding was found in the stomach. Two oozing cratered duodenal ulcers with a visible vessel were found in the duodenal bulb. The largest lesion was 4 mm in largest dimension. Coagulation for hemostasis using monopolar probe was successful. Biopsies were taken with a cold forceps for histology. Verification of patient identification for the specimen was done. Estimated blood loss was minimal. Impression: - LA Grade A reflux esophagitis. - Medium-sized hiatal hernia. - Erythematous mucosa in the stomach. - Multiple oozing duodenal ulcers with a visible vessel. Treated with a monopolar probe. Biopsied. Recommendation: - [facility] care. - Advance diet as tolerated. - Give Protonix (pantoprazole): initiate therapy with 80 mg IV bolus, then 8 mg/hr IV by continuous infusion. - Continue present medications. Procedure Code(s): --- Professional --- 18026, 59, Esophagogastroduodenoscopy, flexible, transoral; with control of bleeding, any method 13564, 51, Esophagogastroduodenoscopy, flexible, transoral; with biopsy, single or multiple CPT copyright 2017 [employer] [employer]. All rights reserved. The codes documented in this report are preliminary and upon communication skills instructor review may be revised to meet current compliance requirements. Mike Mobley DO 03/20/2022 9:26:56 AM This report has been signed electronically. Number of Addenda: 1 Note Initiated On: 03/20/2022 8:46 AM Addendum Number: 1 Addendum Date: 04/25/2022 5:59:11 AM MAC was used as sedation for this procedure. Mike Mobley DO 04/25/2022 5:59:17 AM This report has been signed electronically.
--- NOTE | 2022-03-20 09:27 | NURSING ---
0810-pt off unit via bed for scheduled procedures
--- NOTE | 2022-03-20 09:28 | OP.CCLET_ITS ---
04/25/2022 Willy Ponce MD [address] [place] [address] [place] [address] Re : Upper GI endoscopy procedure for Devika Champion Dear Dr. Ponce This procedure was performed on Sunday, March 20, 2022. My impressions and recommendations are as follows: Impressions : - LA Grade A reflux esophagitis. - Medium-sized hiatal hernia. - Erythematous mucosa in the stomach. - Multiple oozing duodenal ulcers with a visible vessel. Treated with a monopolar probe. Biopsied. Recommendations : - [facility] care. - Advance diet as tolerated. - Give Protonix (pantoprazole): initiate therapy with 80 mg IV bolus, then 8 mg/hr IV by continuous infusion. - Continue present medications. My findings are described in the full procedure note, which is enclosed. If I can be of further assistance, please feel free to contact me at . Sincerely, Mike Mobley, 03/20/2022 9:26:56 AM This report has been signed electronically.
--- NOTE | 2022-03-20 09:32 | OP.COLON_ITS ---
Patient Name: Devika Champion Procedure Date: 03/20/2022 9:04 AM Date of : 1960 Age: 62 Procedure: Colonoscopy Indications: Suspected chronic ulcerative pancolitis Providers: Mike Mobley DO Medicines: Monitored Anesthesia Care Patient Profile: This is a 62 year old female. Refer to note in patient chart for documentation of history and physical. Patient has symptoms of acute epigastric abdominal pain. Last Colonoscopy: 1 year ago. Complications: No immediate complications. Procedure: Pre-Anesthesia Assessment: - Prior to the procedure, a History and Physical was performed, and patient medications and allergies were reviewed. The risks and benefits of the procedure and the sedation options and risks were discussed with the patient. All questions were answered and informed consent was obtained. Patient identification and proposed procedure were verified by the physician in the pre-procedure area. Mental Status Examination: alert and oriented. Airway Examination: normal oropharyngeal airway and neck mobility. Respiratory Examination: clear to auscultation. CV Examination: normal. Prophylactic Antibiotics: The patient does not require prophylactic antibiotics. Prior Anticoagulants: The patient has taken no previous anticoagulant or antiplatelet agents. ASA Grade Assessment: II - A patient with mild systemic disease. After reviewing the risks and benefits, the patient was deemed in satisfactory condition to undergo the procedure. The anesthesia plan was to use moderate sedation / analgesia (conscious sedation). Immediately prior to administration of medications, the patient was re-assessed for adequacy to receive sedatives. The heart rate, respiratory rate, oxygen saturations, blood pressure, adequacy of pulmonary ventilation, and response to care were monitored throughout the procedure. The physical status of the patient was re-assessed after the procedure. After I obtained informed consent, the scope was passed under direct vision. Throughout the procedure, the patient's blood pressure, pulse, and oxygen saturations were monitored continuously. The Colonoscope was introduced through the anus and advanced to the terminal ileum. The colonoscopy was performed without difficulty. The patient tolerated the procedure well. The quality of the bowel preparation was good. Scope In: 9:08:29 AM Scope Withdrawal Time 0 hours 8 minutes 26 seconds Scope Out: 9:19:03 AM Total Procedure Duration Time 0 hours 10 minutes 34 seconds Findings: The perianal and digital rectal examinations were normal. Inflammation was found in a continuous and circumferential pattern from the anus to the cecum. This was graded as Mason Score 3 (severe, with spontaneous bleeding, ulcerations), and when compared to the previous examination, the findings are worsened. Biopsies were taken with a cold forceps for histology. Verification of patient identification for the specimen was done. Estimated blood loss was minimal. A localized area of the terminal ileum was congested. Biopsies were taken with a cold forceps for histology. Verification of patient identification for the specimen was done. Estimated blood loss was minimal. Impression: - Severe (Mason Score 3) pancolitis ulcerative colitis, worsened since the last examination. Biopsied. - Congested mucosa in the terminal ileum. Biopsied. Recommendation: - Discharge patient to home. - Resume previous diet. - Continue present medications. - Await pathology results. -Await stool cultures -Check stool for CMV - Repeat colonoscopy is recommended. The colonoscopy date will be determined after pathology results from today's exam become available for review. Procedure Code(s): --- Professional --- 86020, Colonoscopy, flexible; with biopsy, single or multiple CPT copyright 2017 [place] [employer]. All rights reserved. The codes documented in this report are preliminary and upon carton liner review may be revised to meet current compliance requirements. Mike Mobley DO 03/20/2022 9:31:44 AM This report has been signed electronically. Number of Addenda: 1 Note Initiated On: 03/20/2022 9:04 AM Addendum Number: 1 Addendum Date: 04/25/2022 5:59:25 AM MAC was used as sedation for this procedure. Mike Mobley DO 04/25/2022 5:59:28 AM This report has been signed electronically.
--- NOTE | 2022-03-20 09:33 | OP.CCLET_ITS ---
04/25/2022 Willy Ponce MD [address] [place] [address] [place] [address] Re : Colonoscopy procedure for Devika Champion Dear Dr. Ponce This procedure was performed on Sunday, March 20, 2022. My impressions and recommendations are as follows: Impressions : - Severe (Mason Score 3) pancolitis ulcerative colitis, worsened since the last examination. Biopsied. - Congested mucosa in the terminal ileum. Biopsied. Recommendations : - Discharge patient to home. - Resume previous diet. - Continue present medications. - Await pathology results. -Await stool cultures -Check stool for CMV - Repeat colonoscopy is recommended. The colonoscopy date will be determined after pathology results from today's exam become available for review. My findings are described in the full procedure note, which is enclosed. If I can be of further assistance, please feel free to contact me at . Sincerely, Mike Mobley, 03/20/2022 9:31:44 AM This report has been signed electronically.
--- NOTE | 2022-03-20 09:42 | PCM.PN.HOSP ---
Subjective Subjective Feels little bit better with the IV fluids and the steroids. She is having some increased reflux that she attributes to the steroids so she requested being started on Pepcid as well as her Protonix Objective Data Objective Data Vital Signs: Vital Signs Temp Pulse Resp BP Pulse Ox O2 Del Method 98.3 F 102 H 18 117/46 L 94 Room Air 03/20/22 09:30 03/20/22 09:30 03/20/22 09:30 03/20/22 09:30 03/20/22 09:30 03/20/22 09:30 Oxygen Delivery Method Room Air Weight: 158 lb 4.988 oz Body Mass Index (BMI) 27.1 Intake & Output: Intake and Output for Last 24 Hours 03/19/22 03/20/22 03/21/22 03:59 03:59 03:59 Intake Total 2742.5 / 2742.5 1000 / 1000 Balance 2742.5 / 2742.5 1000 / 1000 Medical Nutrition Assessment Dietitian: Malnutrition Criteria Met Start: 03/19/22 16:44 Freq: Status: Active Protocol: Document 03/19/22 16:44 AG (Rec: 03/19/22 16:44 [id number]) Nutrition Malnutrition Evidence of Malnutrition Exists Yes Malnutrition (severe): Acute Illness/Injury Evidenced By Suboptimal Energy Intake ( Severe),Weight Loss (Severe) Clinical Problem Acute Disease or Injury Related Malnutrition Etiology severe, acute malnutrition related to inadequate energy intake d/t GY dysfunction during UC flare Signs/Symptoms as evidenced by estimated PO intaek meeting <50% of estimated energy needs x 3 weeks; unintentional wt loss of 11.8#/7% x 3 weeks Status Active Problem Recommendation Dietitian Recommendations/Changes recommend advance diet as tolerated to regular/fiber restricted; consider ONS w/ medpass when diet is advanced. If NPO anticipated to last >5 days, may need to consider nutrition support- will provide further recommendations as indicated. Lab / Micro Data Result Diagrams: 03/20/22 05:55 03/20/22 05:55 Labs: Laboratory Results - last 24 hr 03/19/22 10:09: WBC 11.3 H, RBC 3.92 L, Hgb 10.3 L, Hct 33.5 L, MCV 85.5, MCH 26.3 L, MCHC 30.7 L, RDW Std Deviation 48.3 H, RDW Coeff of Nancie 15.5 H, Plt Count 584 H, MPV 8.7, Immature Gran % (Auto) 1.500 H, Neut % (Auto) 75.1 H, Lymph % (Auto) 13.5 L, [place] % (Auto) 7.4, Eos % (Auto) 1.9, Baso % (Auto) 0.6, Absolute Neuts (auto) 8.5 H, Absolute Lymphs (auto) 1.52, Nucleated RBC % 0 03/19/22 10:09: Sodium 140, Potassium 3.8, Chloride 106, Carbon Dioxide 28.0, Anion Gap 6, BUN 18, Creatinine 1.04 H, Estim Creat Clear Calc 49.05, Est GFR (MDRD) Af Amer 69, Est GFR (MDRD) Non-Af 57 L, BUN/Creatinine Ratio 17.3, Glucose 115 H, Calcium 8.9, Total Bilirubin 0.60, Direct Bilirubin 0.14, AST 10 L, ALT 13, Alkaline Phosphatase 111, Total Protein 6.6, Albumin 2.6 L, Globulin 4.0, Lipase 54 L 03/19/22 10:09: ESR 42 H 03/19/22 10:09: C-React Prot Ext Range 115.00 H 03/19/22 11:30: Urine Color Yellow, Urine Clarity Sl. Cloudy, Urine pH 6.0, Ur Specific [place] 1.020, Urine Protein 30 H, Urine Glucose (UA) Normal, Urine Ketones 15 H, Urine Occult Blood Negative, Urine Nitrite Negative, Urine Bilirubin Negative, Urine Urobilinogen Normal, Ur Leukocyte Esterase 25 H, Urine RBC 0 SEEN, Urine WBC 5-10 SEEN, Ur Squamous Epith Cells 0-5 SEEN, Urine Bacteria 1+, Urine Mucus 0 SEEN 03/19/22 12:12: Lactic Acid 0.9 03/20/22 05:55: WBC 4.3 L, RBC 3.33 L, Hgb 8.5 L, Hct 28.4 L, MCV 85.3, MCH 25.5 L, MCHC 29.9 L, RDW Std Deviation 48.4 H, RDW Coeff of Nancie 15.5 H, Plt Count 536 H, MPV 9.0, Immature Gran % (Auto) 2.300 H, Neut % (Auto) 63.2, Lymph % (Auto) 27.3, [place] % (Auto) 6.7, Eos % (Auto) 0.0, Baso % (Auto) 0.5, Absolute Neuts (auto) 2.7, Absolute Lymphs (auto) 1.18, Nucleated RBC % 0 03/20/22 05:55: Sodium 139, Potassium 4.0, Chloride 110 H, Carbon Dioxide 25.0, Anion Gap 4 L, BUN 9, Creatinine 0.68, Estim Creat Clear Calc 75.02, Est GFR (MDRD) Af Amer 114, Est GFR (MDRD) Non-Af 94, BUN/Creatinine Ratio 13.3, Glucose 133 H, Calcium 8.5, Total Bilirubin 0.40, AST 9 L, ALT 10 L, Alkaline Phosphatase 85, Total Protein 5.6 L, Albumin 2.1 L, Globulin 3.5, Albumin/Globulin Ratio 0.6 L, TSH 0.33 L 03/20/22 05:55: PT 13.8, INR 1.1, APTT < 24.0 L Micro: Microbiology 03/19/22 16:35 Stool Stool Lactoferrin - Final 03/19/22 16:35 Stool C. difficile GDH Antigen & Toxins - Final 03/19/22 16:35 Stool C. difficile DNA Amplification - Final Physical Exam Narrative General: Alert, Oriented x3, Cooperative, No apparent distress HEENT: Atraumatic, PERRLA, EOMI, Normocephalic Oral: Moist mucosa Neck: Supple, No JVD Lungs: Clear to auscultation, Normal air movement, No rhonchi, No wheeze, No rales Cardiovascular: Tachycardic, Regular Rhythm, Normal S1, Normal S2, No murmurs Abdomen: Soft, Non Tender, Non-Distended, No Hepato-splenomegaly Extremities: No edema, Capillary Refill Less than 3 Seconds Skin: No rashes, No breakdown Musculoskeletal: No Tenderness to Palpation of Joints or Extremities Neurological: Cranial nerves II-XII grossly intact, Motor Exam 5/5 strength throughout, Sensory exam intact to light touch and pain Psych/Mental Status: Normal Affect, Appropriate Assessment & Plan Assessment/Plan (1) Ulcerative colitis: PLAN: Plan 1. Dehydration secondary to ulcerative colitis flare leading to pseudo flare of her MS ? Continue with aggressive IV fluids ? Consult gastroenterology, plan for colonoscopy today ? Continue with IV steroids ? As needed pain medications 2. Hypothyroidism ? Stable ? Continue Synthroid 3. History of MS ? Not currently on any medications just being monitored as an outpatient DVT: SCDs Charges/Coding Visit Charges Inpatient E&M: 35690 Subs Hosp L2
[2022-03-20 10:30] LABS: Erythrocyte Sedimentation Rate 16 mm/hr (0-30)
[2022-03-20] MEDS: Famotidine 20 MG Tablet PO (10:37)
[2022-03-20 11:00] LABS: Prealbumin 7.8 mg/dL (20.0-40.0)
--- NOTE | 2022-03-20 12:20 | CASEMGMT ---
PRESTON CERVANTES Assessment: Face to Face with pt for initial transition planning/care coordination assessment. PRESTON CERVANTES introduced self and role at [facility], pt voices understanding and consents to assessment. Pt is A/O x4 and answers all questions appropriately at this time. Pt lying in bed in no distress. Pt dtr present in room for assessment. Care providers, pharmacy, and demographics verified/updated. Admitting Dx: UC Flare PCP:Rosario Specialists:Itz, GI; [facility]; Anais neuro Preferred Pharmacy: [facility] Retail Insurance: [facility] [place] Prescription Benefit: yes LW/HPOA: Pt is not sure if she has a LW/DPOA or not. She is aware that if she does, they are not on file at [facility] and she may bring in to be scanned into her chart. She is not sure who her DPOA is if she has one. LNOK: Alaina Alvarez, dtr; Aureliano Alvarez, son in law Living Arrangements: Pt lives alone in a single story house with 2 steps to enter without a rail. Pt reports she is I in ADL's and denies concerns at home. Transportation: Pt drives self and denies concerns with transportation. DME/HHC/SNF: Pt denies having any DME in the home, hx of HHC or SNFs. Pt states no concerns with going home at time of dc. Pt states no further concerns/needs. CM to follow. Advised pt to ask CM if any further question/concerns/needs arise, voices understanding. Pt Goal: Home Plan: Home
[2022-03-20] MEDS: Ensure Clear 120 ML Liquid PO (21:32)
[2022-03-21 02:30] VITALS: BP 127/80; PULSE 90; RESP 14; TEMP 36.8; O2SAT 95
[2022-03-21] MEDS: 0.9% Normal Saline 1,000 ML 150 ML IV (05:14)
[2022-03-21 06:47] VITALS: O2SAT 94
[2022-03-21] MEDS: Famotidine 20 MG Tablet PO (10:03)
--- NOTE | 2022-03-21 10:41 | DCINST_ITS ---
Discharge Instructions Diet Discharge Diet: No restrictions Activity Discharge Activity: Return to Normal Activity Dressing / Incision Call your doctor if you observe: Fever of 101 or Higher, Shortness of breath, Dizziness, Fainting spells, Swelling in the ankles, Chest pain and Increased palpitations (irregular heartbeat) Follow Up Care Test Results: Test results from this visit will be discussed in further detail at your follow- up appointment, if applicable. Discharge Plan Admission Admit Date/Time: 03/19/22 11:25 Attending Provider: Hugh Colon Primary Care Provider: Willy Ponce Discharge Orders/Prescriptions Prescriptions: New prednisone 20 mg tablet 40 mg PO DAILY Qty: 40 0RF Rx Instructions: Take 2 tablets for 1 week then go down to 1 tablet daily for a week then half tablet daily for a week, then follow-up with your GI for further instructions pantoprazole [Protonix] 40 mg tablet,delayed release (DR/EC) 40 mg PO BID Qty: 60 0RF Continued Entyvio 300 mg recon soln 300 mg .Route .[id number] Rx Instructions: IV cyanocobalamin (vitamin B-12) 1,000 mcg/mL solution 100 mcg IM QMONTH Rx Instructions: WAS SUPPOSED TO HAVE THIS PAST FRIDAY valacyclovir [Valtrex] 500 mg tablet 500 mg PO DAILY PRN (Reason: Cold Sores) famotidine [Pepcid] 20 mg Tablet 20 mg PO DAILY levothyroxine 50 mcg tablet 50 mcg PO DAILY Qty: 90 1RF Discontinued naproxen sodium [Aleve] 220 mg capsule 220 mg PO BID PRN (Reason: Pain) Referrals / Follow Up: Willy Ponce MD [Primary Care Provider] - Within 1 Week Mike Mobley DO [Med Staff - Active Staff] - Within 1 Month Disposition Disposition (needs filled in before D/C Order can be placed): Home, Self Care
--- NOTE | 2022-03-21 10:50 | DS.PCM_ITS ---
Providers Date of Admission: 03/19/22 Primary Care Physician: Dr. Willy Ponce MD Consultations 03/19/22 13:58 Consult: Gastroenterology Routine Consulting Provider: Vikki Gastroenterfannie Reason for Consult: uc EMERGENT Consult: No MD Notified: Yes Date Notified: 03/19/22 Time Notified: 13:58 Method of Notification: Verbal Reason For Visit: UC FLARE Diagnosis Discharge Diagnosis (1) Ulcerative colitis: Status: Chronic Code(s): K51.90 - Ulcerative colitis, unspecified, without complications Plan 1. Dehydration secondary to ulcerative colitis flare leading to pseudo flare of her MS ? Continue with aggressive IV fluids ? Consult gastroenterology, plan for colonoscopy today ? Continue with IV steroids ? As needed pain medications 2. Hypothyroidism ? Stable ? Continue Synthroid 3. History of MS ? Not currently on any medications just being monitored as an outpatient DVT: SCDs Medications at Discharge Home Medications vedolizumab 300 mg intravenous solution (Entyvio) 300 mg .Route .Q6WK Check with primary doctor 12/11/20 cyanocobalamin (vitamin B-12) 1,000 mcg/mL injection solution 100 mcg IM QMONTH Check with primary doctor 11/22/21 valacyclovir 500 mg tablet (Valtrex) 500 mg PO DAILY PRN Cold Sores 11/22/21 levothyroxine 50 mcg tablet 50 mcg PO DAILY thyroid #90 tabs 03/05/22 famotidine 20 mg tablet (Pepcid) 20 mg PO DAILY Check with primary doctor 03/12/22 pantoprazole 40 mg tablet,delayed release (Protonix) 40 mg PO BID #60 tabs 03/21/22 prednisone 20 mg tablet 40 mg PO DAILY #40 tabs 03/21/22 Hospital Course Operations None Procedures Colonoscopy and EGD Summary of Care Provided Minutes Spent on Discharge: 55 Hospital Course: Per HPI: CHANEL PRASAD, is a 62 F who 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 She has had difficulty getting this under control, initially she was diagnosed with C. difficile and then was found to have ulcerative colitis.? She has not tolerated multiple oral medications for maintenance and she has not tolerated Entyvio.? Today she was supposed to have her initial consultation with a [place] gastro[facility]ology to potentially start Stelara however she was sent to the ER for steroids to try to get her current flare under control.? She does also have MS and is complaining of some weakness.? This is not uncommon in the setting of another illness to have a pseudo flare for MS.? She did recently finish a steroid taper. Hospital Course: 1.? Dehydration secondary to ulcerative colitis flare leading to pseudo flare of her MS/duodenal ulcers with visible vessel ? Continue with aggressive IV fluids ? Appreciate GIs assistance, EGD and colonoscopy obtained. EGD with multiple duodenal ulcers and esophagitis, and colonoscopy with significant colitis ? Her inflammatory markers are improving while on the steroids, will plan for discharge today on 40 mg of prednisone daily for a week and then go down to 20 mg daily for a week then 10 mg daily for a week. She is planning an infusion of Stelara next week and hopefully this will help get her symptoms under control. I did have an extensive conversation with her today about colectomy and ostomy placement she seems to be more comfortable with this idea if it were to become necessary. I discussed with her the plan for discharge today she expressed understanding of the risk and benefits of going home and she would like to go home today. She will continue with prednisone taper as well as twice daily Protonix for a month. 2.? Hypothyroidism ? Stable ? Continue Synthroid 3.? History of MS ? Not currently on any medications just being monitored as an outpatient Physical Exam Narrative General: Alert, Oriented x3, Cooperative, No apparent distress HEENT: Atraumatic, PERRLA, EOMI, Normocephalic Oral: Moist mucosa Neck: Supple, No JVD Lungs: Clear to auscultation, Normal air movement, No rhonchi, No wheeze, No rales Cardiovascular: Tachycardic, Regular Rhythm, Normal S1, Normal S2, No murmurs Abdomen: Soft, Non Tender, Non-Distended, No Hepato-splenomegaly Extremities: No edema, Capillary Refill Less than 3 Seconds Skin: No rashes, No breakdown Musculoskeletal: No Tenderness to Palpation of Joints or Extremities Neurological: Cranial nerves II-XII grossly intact, Motor Exam 5/5 strength throughout, Sensory exam intact to light touch and pain Psych/Mental Status: Normal Affect, Appropriate Medical Records Data Medical Nutrition Assessment Dietitian: Malnutrition Criteria Met Start: 03/19/22 16:44 Freq: Status: Active Protocol: Document 03/19/22 16:44 AG (Rec: 03/19/22 16:44 [id number]) Nutrition Malnutrition Evidence of Malnutrition Exists Yes Malnutrition (severe): Acute Illness/Injury Evidenced By Suboptimal Energy Intake ( Severe),Weight Loss (Severe) Clinical Problem Acute Disease or Injury Related Malnutrition Etiology severe, acute malnutrition related to inadequate energy intake d/t GY dysfunction during UC flare Signs/Symptoms as evidenced by estimated PO intaek meeting <50% of estimated energy needs x 3 weeks; unintentional wt loss of 11.8#/7% x 3 weeks Status Active Problem Recommendation Dietitian Recommendations/Changes recommend advance diet as tolerated to regular/fiber restricted; consider ONS w/ medpass when diet is advanced. If NPO anticipated to last >5 days, may need to consider nutrition support- will provide further recommendations as indicated. Weight / BMI Weight Weight: 158 lb 4.988 oz Body Mass Index (BMI) 27.1 ABG / Lab / Microbiology Data Result Diagrams: 03/20/22 05:55 03/20/22 05:55 Laboratory: Laboratory Results - last 24 hr 03/20/22 05:55: Prealbumin 7.8 L 03/20/22 : Stl Giardia Antigen Cancelled Microbiology: Microbiology 03/20/22 Unknown Stool Enteric Bacteriology - Final 03/20/22 Unknown Stool C. difficile GDH Antigen & Toxins - Final 03/20/22 Unknown Stool C. difficile DNA Amplification - Final 03/19/22 16:35 Stool Stool Lactoferrin - Final 03/19/22 16:35 Stool Enteric Bacteriology - Final 03/19/22 16:35 Stool C. difficile GDH Antigen & Toxins - Final 03/19/22 16:35 Stool C. difficile DNA Amplification - Final D/C Instructions Discharge Diet: No restrictions Call your doctor if you observe: Fever of 101 or Higher, Shortness of breath, Dizziness, Fainting spells, Swelling in the ankles, Chest pain and Increased palpitations (irregular heartbeat) Meaningful Use Info Meaningful Use Diagnoses (Choose all that apply): None applicable Discharge Plan Admission Admit Date/Time: 03/19/22 11:25 Attending Provider: Hugh Colon Primary Care Provider: Willy Ponce Discharge Orders/Prescriptions Prescriptions: New prednisone 20 mg tablet 40 mg PO DAILY Qty: 40 0RF Rx Instructions: Take 2 tablets for 1 week then go down to 1 tablet daily for a week then half tablet daily for a week, then follow-up with your GI for further instructions pantoprazole [Protonix] 40 mg tablet,delayed release (DR/EC) 40 mg PO BID Qty: 60 0RF Continued Entyvio 300 mg recon soln 300 mg .Route .Q6WK Rx Instructions: IV cyanocobalamin (vitamin B-12) 1,000 mcg/mL solution 100 mcg IM QMONTH Rx Instructions: WAS SUPPOSED TO HAVE THIS PAST FRIDAY valacyclovir [Valtrex] 500 mg tablet 500 mg PO DAILY PRN (Reason: Cold Sores) famotidine [Pepcid] 20 mg Tablet 20 mg PO DAILY levothyroxine 50 mcg tablet 50 mcg PO DAILY Qty: 90 1RF Discontinued naproxen sodium [Aleve] 220 mg capsule 220 mg PO BID PRN (Reason: Pain) Referrals / Follow Up: Willy Ponce MD [Primary Care Provider] - Within 1 Week Mike Mobley DO [Med Staff - Active Staff] - Within 1 Month Disposition Disposition (needs filled in before D/C Order can be placed): Home, Self Care Charges/Coding Visit Charges Inpatient E&M: [id number] Disch Hosp
[2022-03-24 11:06] LABS: Calprotectin, Stool 327 ug/g (0-120)
== END 2022-03-21 19:05 | disposition home or self-care (01) | DRG 385 ==
LOC: ED 11:09 → MS3 11:53
PROVIDERS: Anesthesiology; Internal Medicine Gastroenterology; Admitting Provider Family Medicine; Emergency Provider Emergency Medicine; PCP Internal Medicine; Visit Provider Family Medicine
PROC: 0DJD8ZZ Inspection of Lower Intestinal Tract, Via Natural or Artificial Opening Endoscopic (ICD-10-PCS; CPT 45378; principal; 2022-03-20 08:55)
DX: K51.011 Ulcerative (chronic) pancolitis with rectal bleeding (principal); E43 Unspecified severe protein-calorie malnutrition; K26.4 Chronic or unspecified duodenal ulcer with hemorrhage; D68.51 Activated protein C resistance; G35 Multiple sclerosis; D64.9 Anemia, unspecified; E03.9 Hypothyroidism, unspecified; E28.2 Polycystic ovarian syndrome; E53.8 Deficiency of other specified B group vitamins; E86.0 Dehydration; K21.00 Gastro-esophageal reflux disease with esophagitis, without bleeding; K44.9 Diaphragmatic hernia without obstruction or gangrene; Z78.0 Asymptomatic menopausal state; Z79.899 Other long term (current) drug therapy; Z68.27 Body mass index [BMI] 27.0-27.9, adult
CPT/HCPCS: 36415; 80048; 80053; 80076; 81001; 83605; 83630; 83690; 83993; 84134; 84443; 85025; 85610; 85652; 85730; 86140; 87177; 87209; 87329; 87493; 87506; 88305; 93005; 97802; 99285; J7030; A4216; J2405

== ENCOUNTER → 2022-04-16 | Outpatient (CLI) | payer MEDICARE, MEDICAID, SELFPAY | END | disposition home or self-care (01) | LOC: MTLAB 13:11 → LABSPEC 13:13 | PROVIDERS: PCP Internal Medicine; Referring Provider Internal Medicine Gastroenterology; Visit Provider Internal Medicine Gastroenterology | DX: A49.8 Other bacterial infections of unspecified site (principal) | CPT/HCPCS: 87493 ==

== ENCOUNTER → 2022-05-03 | Outpatient (CLI) | payer MEDICARE, MEDICAID, SELFPAY ==
[2022-05-03] MEDS: 0.9% NaCl IVPB Med Flush (250 mL) 15 ML IV (11:01)
[2022-05-03] MEDS: 0.9% NaCl Peripheral Flush Adult/Peds IV (11:01)
[2022-05-03 11:02] VITALS: BP 122/75; PULSE 113; O2SAT 94
[2022-05-03] MEDS: DiphenhydrAMINE 50 MG/ML Syringe IV (11:16)
[2022-05-03 12:50] VITALS: BP 122/74; PULSE 90; RESP 16
== END | disposition home or self-care (01) ==
LOC: MEDOUTP 10:28
PROVIDERS: PCP Internal Medicine; Referring Provider Internal Medicine Gastroenterology; Visit Provider Internal Medicine Gastroenterology
DX: K51.90 Ulcerative colitis, unspecified, without complications (principal)
CPT/HCPCS: 96365; 96375; J7050; A4216; J3358

== ENCOUNTER 2022-06-10 14:40 | Outpatient (CLI) | payer MEDICARE, MEDICAID, SELFPAY ==
[2022-06-10 16:51] LABS: Absolute Lymphocyte Count 2.22 X10^3/uL (0.83-4.51); Absolute Neutrophil Count 2.2 X10^3/uL (2.0-7.7); Basophil% 1.9 % (0-1); Eosinophil# 0.34 X10^3/uL; Eosinophils% 6.4 % (0-5); Hematocrit 32.4 % (37-47); Hemoglobin 9.4 g/dL (12.0-15.0); Lymphocyte # 2.22 X10^3/ul (0.83-4.51); Lymphocyte % 41.7 % (19-41); Mean Corpuscular Hgb 23.2 pg (27.0-32.0); Mean Corpuscular Volume 79.8 fL (81-99); Mean Platelet Vol. 10.2 fl (6.2-12.0); Monocyte% 9.4 % (0-10); NRBC Flagged by Analyzer 0 % (0-5); Neutrophil # 2.16 X10^3/uL (2.7-7.7); Neutrophil % 40.4 % (47-70); Platelet Count 362 K/mm3 (150-450); RBC Distribution Width CV 15.7 % (11.6-14.6); RBC Distribution Width SD 45.4 fl (35.1-43.9); Red Blood Count 4.06 M/mm3 (4.2-5.4); White Blood Count 5.3 K/mm3 (4.4-11.0)
[2022-06-10 16:59] LABS: AST(SGOT) 11 U/L (15-37); Alanine Aminotransfer ALT/SGPT 15 U/L (13-56); Albumin, Serum 3.4 g/dL (3.2-5.0); Alkaline Phosphatase 70 U/L (45-117); Anion Gap 7 (5-15); BUN 15 mg/dL (7-18); BUN/Creat Ratio 18.6 RATIO (10-20); Calcium,Total 8.8 mg/dL (8.5-10.1); Chloride 105 mmol/L (98-107); EST Glomerular Filtration Rate 77 mL/min (>60); Est Glom Filt Rate - Afr Amer 93 mL/min (>60); Globulin 3.5 g/dL (2.2-4.2); Glucose 95 mg/dL (74-106); Potassium 3.7 mmol/L (3.5-5.1); Protein, Total 6.9 g/dL (6.4-8.2); Sodium Level 138 mmol/L (136-145); Thyroid Stim Hormone (TSH) 1.62 uIU/mL (0.358-3.74)
== END 2022-06-10 23:59 | disposition home or self-care (01) ==
LOC: BIMLAB 14:42
PROVIDERS: PCP Internal Medicine; Visit Provider Internal Medicine
DX: E03.9 Hypothyroidism, unspecified (principal)
CPT/HCPCS: 36415; 80053; 84443; 85025

== ENCOUNTER → 2022-07-09 | Outpatient (CLI) | payer MEDICARE, MEDICAID, SELFPAY ==
[2022-07-09 16:23] LABS: Ferritin 6 ng/mL (8-252); Iron 16 ug/dL (50-170)
== END | disposition home or self-care (01) ==
LOC: MTLAB 14:37
PROVIDERS: PCP Internal Medicine; Referring Provider Psychiatry & Neurology Neurology; Visit Provider Psychiatry & Neurology Neurology
DX: D64.9 Anemia, unspecified (principal)
CPT/HCPCS: 36415; 82728; 82746; 83540

== ENCOUNTER 2022-08-01 12:56 | Outpatient (CLI) | payer MEDICARE, MEDICAID, SELFPAY ==
[2022-08-01] MEDS: 0.9% NaCl Peripheral Flush Adult/Peds IV (13:09)
[2022-08-01 13:10] VITALS: BP 131/65; PULSE 97; RESP 16; TEMP 36.2; O2SAT 94; BMI 27.4
[2022-08-01] MEDS: 0.9% NaCl IVPB Med Flush (250 mL) 15 ML IV (13:16)
[2022-08-01] MEDS: Ferric Derisomaltose (Monoferric) 1,000 MG in 0.9% NaCl 100 ML 330 MG IV (13:23)
[2022-08-01 14:25] VITALS: BP 124/50; PULSE 91; O2SAT 97
== END 2022-08-01 23:59 | disposition home or self-care (01) ==
LOC: MEDOUTP 12:57
PROVIDERS: PCP Internal Medicine; Referring Provider Psychiatry & Neurology Neurology; Visit Provider Psychiatry & Neurology Neurology
DX: D64.9 Anemia, unspecified (principal)
CPT/HCPCS: 96365; J1437; J7050; A4216

== ENCOUNTER → 2022-09-10 | Outpatient (CLI) | payer MEDICARE, MEDICAID, SELFPAY ==
[2022-09-10 15:09] LABS: Hematocrit 41.8 % (37-47); Hemoglobin 12.6 g/dL (12.0-15.0); Mean Corp Hgb Conc 30.1 g/dL (32-36); Mean Corpuscular Hgb 26.8 pg (27.0-32.0); Mean Corpuscular Volume 88.7 fL (81-99); Mean Platelet Vol. 10.2 fl (6.2-12.0); POSITIVE MORPHOLOGY YES; Platelet Count 277 K/mm3 (150-450); RBC Distribution Width CV 20.6 % (11.6-14.6); RBC Distribution Width SD 67.4 fl (35.1-43.9); Red Blood Count 4.71 M/mm3 (4.2-5.4); White Blood Count 4.9 K/mm3 (4.4-11.0)
[2022-09-10 15:11] LABS: Scan Indicated on CBC? Y/N YES- FLAGS NOTED
[2022-09-10 15:28] LABS: Ferritin 125 ng/mL (8-252); Iron 45 ug/dL (50-170)
[2022-09-10 15:44] LABS: Thyroid Stim Hormone (TSH) 2.54 uIU/mL (0.358-3.74)
[2022-09-10 15:47] LABS: Differential Comment SCANNED
== END | disposition home or self-care (01) ==
LOC: MTLAB 13:35
PROVIDERS: Psychiatry & Neurology Neurology; PCP Family Medicine; Referring Provider Family Medicine; Visit Provider Family Medicine
DX: D50.9 Iron deficiency anemia, unspecified (principal); E03.9 Hypothyroidism, unspecified; Z86.39 Personal history of other endocrine, nutritional and metabolic disease
CPT/HCPCS: 36415; 82652; 82728; 83540; 84443; 85027

== ENCOUNTER → 2022-10-03 | Outpatient (CLI) | payer MEDICARE, MEDICAID, SELFPAY ==
[2022-10-03 12:30] VITALS: BP 126/77; PULSE 103; RESP 16; TEMP 36.6; O2SAT 96; BMI 27.8
[2022-10-03] MEDS: 0.9% NaCl IVPB Med Flush (250 mL) 15 ML IV (12:49)
[2022-10-03] MEDS: 0.9% NaCl Peripheral Flush Adult/Peds IV (12:49)
[2022-10-03] MEDS: Ferric Derisomaltose (Monoferric) 1,000 MG in 0.9% NaCl 100 ML 330 MG IV (13:18)
[2022-10-03 13:54] VITALS: BP 126/77; PULSE 103; RESP 16; TEMP 36.6; O2SAT 96
== END | disposition home or self-care (01) ==
LOC: MEDOUTP 12:26
PROVIDERS: PCP Family Medicine; Referring Provider Psychiatry & Neurology Neurology; Visit Provider Psychiatry & Neurology Neurology
DX: D50.9 Iron deficiency anemia, unspecified (principal)
CPT/HCPCS: 96365; J1437; J7050; A4216

== ENCOUNTER → 2022-10-18 | Outpatient (CLI) | payer MEDICARE, MEDICAID, SELFPAY ==
[2022-10-18 13:46] LABS: Erythrocyte Sedimentation Rate 1 mm/hr (0-30)
[2022-10-18 13:47] LABS: Absolute Lymphocyte Count 2.45 X10^3/uL (0.83-4.51); Absolute Neutrophil Count 2.6 X10^3/uL (2.0-7.7); Basophil# 0.07 X10^3/uL; Basophil% 1.2 % (0-1); Eosinophil# 0.16 X10^3/uL; Eosinophils% 2.8 % (0-5); Hematocrit 42.5 % (37-47); Hemoglobin 13.5 g/dL (12.0-15.0); Lymphocyte # 2.45 X10^3/ul (0.83-4.51); Lymphocyte % 42.9 % (19-41); Mean Corp Hgb Conc 31.8 g/dL (32-36); Mean Corpuscular Volume 91.4 fL (81-99); Mean Platelet Vol. 9.8 fl (6.2-12.0); Monocyte# 0.39 X10^3/uL; Monocyte% 6.8 % (0-10); NRBC Flagged by Analyzer 0 % (0-5); Neutrophil # 2.62 X10^3/uL (2.7-7.7); Neutrophil % 45.9 % (47-70); Platelet Count 255 K/mm3 (150-450); RBC Distribution Width CV 16.5 % (11.6-14.6); RBC Distribution Width SD 55.5 fl (35.1-43.9); Red Blood Count 4.65 M/mm3 (4.2-5.4); White Blood Count 5.7 K/mm3 (4.4-11.0)
[2022-10-18 14:03] LABS: ALB/GLOB Ratio 1.2 RATIO (0.9-2.4); AST(SGOT) 22 U/L (15-37); Alanine Aminotransfer ALT/SGPT 29 U/L (13-56); Albumin, Serum 3.6 g/dL (3.2-5.0); Alkaline Phosphatase 108 U/L (45-117); Anion Gap 3 (5-15); BUN 12 mg/dL (7-18); BUN/Creat Ratio 15.7 RATIO (10-20); CRP 5.41 mg/L (0.0-3.0); Calcium,Total 8.8 mg/dL (8.5-10.1); Chloride 107 mmol/L (98-107); Creatinine, Serum 0.76 mg/dL (0.55-1.02); EST Glomerular Filtration Rate 81 mL/min (>60); Est Glom Filt Rate - Afr Amer 99 mL/min (>60); Globulin 3.1 g/dL (2.2-4.2); Glucose 94 mg/dL (74-106); Potassium 3.9 mmol/L (3.5-5.1); Protein, Total 6.7 g/dL (6.4-8.2); Sodium Level 140 mmol/L (136-145)
== END | disposition home or self-care (01) ==
LOC: LAB 12:42
PROVIDERS: PCP Family Medicine; Referring Provider Internal Medicine Gastroenterology; Visit Provider Internal Medicine Gastroenterology
DX: K51.90 Ulcerative colitis, unspecified, without complications (principal)
CPT/HCPCS: 36415; 80053; 85025; 85652; 86140

== ENCOUNTER → 2022-10-22 | Outpatient (CLI) | payer MEDICARE, MEDICAID, SELFPAY ==
[2022-10-25 15:20] LABS: Calprotectin, Stool 379 ug/g (0-120)
== END | disposition home or self-care (01) ==
LOC: LABSPEC 08:29
PROVIDERS: PCP Family Medicine; Referring Provider Internal Medicine Gastroenterology; Visit Provider Internal Medicine Gastroenterology
DX: K51.90 Ulcerative colitis, unspecified, without complications (principal)
CPT/HCPCS: 83630; 83993

== ENCOUNTER → 2022-12-11 | Outpatient (CLI) | payer MEDICARE, MEDICAID, SELFPAY | END | disposition home or self-care (01) | PROVIDERS: PCP Family Medicine; Referring Provider Internal Medicine Gastroenterology; Visit Provider Internal Medicine Gastroenterology | DX: K51.90 Ulcerative colitis, unspecified, without complications (principal) | CPT/HCPCS: 36415 ==

== ENCOUNTER → 2023-02-04 | Outpatient (CLI) | payer MEDICARE, MEDICAID, SELFPAY ==
--- NOTE | 2023-02-04 13:16 | BI_ITS ---
MAMMOGRAPHY - BILATERAL SCREENING 3-D TOMOSYNTHESIS REASON FOR EXAM: Female, 62 years old. Routine screening PERTINENT HISTORY: Aunts with breast cancer.. TECHNIQUE: 2-D mammograms and 3-D Tomosynthesis of the breast (s) were performed. CAD was performed. COMPARISON: 10/23/2020 FINDINGS: The breast composition is composed of scattered fibroglandular density. Scattered benign calcifications are seen. No dense spiculated masses or suspicious microcalcifications are identified. No architectural distortion is identified. There is no skin thickening or retraction. Postbiopsy changes noted in the upper outer quadrant of the left breast There has been no significant change since the prior study. BI/SCRN MAMM (CAD)W/SUNNY BILAT IMPRESSION: No mammographic signs of malignancy. Routine yearly mammograms recommended. ASSESSMENT CATEGORY: BIRADS Category 2: Benign. A letter regarding these results will be sent to the patient by the facility within 30 days. FOLLOW UP RECOMMENDATION: Yearly follow up mammogram recommended. (A) Approximately 10% of breast cancers are not detected by mammography. A normal mammogram should not delay biopsy of a clinically suspicious abnormality. Electronically Signed: Julian Berger MD at 14:28 EDT ,
== END | disposition home or self-care (01) ==
LOC: OPBI 13:13
PROVIDERS: PCP Family Medicine; Referring Provider Family Medicine; Visit Provider Family Medicine
DX: Z12.31 Encounter for screening mammogram for malignant neoplasm of breast (principal); Z80.3 Family history of malignant neoplasm of breast
CPT/HCPCS: 77063; 77067

== ENCOUNTER → 2023-02-10 | Outpatient (CLI) | payer MEDICARE, MEDICAID, SELFPAY | END | disposition home or self-care (01) | LOC: LABSPEC 12:14 | PROVIDERS: PCP Family Medicine; Referring Provider Family Medicine; Visit Provider Family Medicine | DX: N39.0 Urinary tract infection, site not specified (principal) | CPT/HCPCS: 87086 ==

== ENCOUNTER 2023-02-17 08:00 | Outpatient (RCR) | payer MEDICARE, MEDICAID, SELFPAY ==
--- NOTE | 2023-02-17 09:00 | BH.SGPN.GN ---
Behaviors/Verbalizations/Mental Status: [] Eye contact is good. Motor activity is appropriate. Appearance is casual. Speech is Appropriate. Mood is anxious. Affect is congruent. Thoughts are linear and logical. No evidence of psychosis. Reviewed daily check in sheet and no reports of suicidal ideations or intent. Client Response/Progress/Benefit: [] Pt participated at times during the group discussion. Attentive. This was pt's first day in IOP and she briefly introduced herself to the group. Reports significant anxiety which has lead to severe isolation, missing family vacations, and struggling to leave her comfort zone. Anxiety exacerbated by medical issue. Tearful throughout her check-in as this has significantly impacted her life and overall functioning. Group provided support and emphasized with struggles which was beneficial. Limited progress as this was pt's first day. Will continue in IOP to stabilize anxiety, increase healthy coping, and improve functioning. Narrative Note: []
--- NOTE | 2023-02-17 10:15 | BH.SGPN.GN ---
Behaviors/Verbalizations/Mental Status: []Pt alert and oriented, neatly dressed and groomed. Eye contact good. Motor activity restless. Speech within normal limits. Affect congruent, mood anxious. Thoughts linear, logical, no signs of hallucinations or delusions. Client Response/Progress/Benefit: [] Pt was an active participant in group discussions and activities. Attentive during psychoeducation. Pt engaged during interactive discussion in which the group defined self-care and discussed its benefits. ?Worked with peers in a small group to identify myths related to self-care which included; Self-care means you are not productive, you have to earn self-care, and it is selfish. Pt participated in small groups where they worked to bust these self-care myths. Benefited from increased awareness of self-care, its benefits, and the consequences of not utilizing self-care strategies. Pt shared she often struggles with self-care because pt feels ?like my worth is tied to being productive and if I?m not others will get mad at me.? Will continue IOP tx to prevent decompensation, improve daily functioning, and increase self-compassion. Narrative Note: []
--- NOTE | 2023-02-17 11:15 | BH.SGPN.GN ---
Behaviors/Verbalizations/Mental Status: [] Pt alert and oriented, neatly dressed and groomed. Eye contact good. Motor activity appropriate. Speech within normal limits. Affect congruent, mood anxious. Thoughts linear, logical, no signs of hallucinations or delusions. Client Response/Progress/Benefit: [] Pt engaged participant AEB completing self-assessment worksheet and providing input throughout discussion. Participated in group discussion on the various areas of self-care. Pt completed worksheet identifying current self-care practices and what self-care activities pt wants to start using. Pt selected social self-care to begin practicing more consistently. Pt plans to do this by scheduling time with her friends and keeping the plans. Appeared to benefit from completing the self-care evaluation and gaining insights into current self-care practices, as well as identifying areas in which pt would like to improve upon.? First day of IOP tx. Pt will continue IOP tx to prevent decompensation, reduce avoidance, and improve daily functioning. Narrative Note: []
--- NOTE | 2023-02-17 15:53 | BH.COMM_ITS ---
Communication Note Communication with Client Communication Note: Therapist met with pt to complete initial paperwork. Completed the CSSR-S and pt is low risk. Has history over 30 years ago of suicidal thoughts with idea to kill self via carbon monoxide poisoning. Pt reported after her child's step father by suicide over 20 years ago she realized suicide is not an option for. No suicidal thoughts in over 20 years. No history of self-harming behaviors. Pt denies any access to weapons. Consulted with Dr. Moreira and will admit to [facility] level of care with a diagnosis of F 41.1.
== END 2023-02-17 23:59 ==
LOC: BHIOP 08:00
PROVIDERS: PCP Family Medicine; Referring Provider Psychiatry & Neurology Psychiatry; Visit Provider Psychiatry & Neurology Psychiatry
DX: F41.1 Generalized anxiety disorder (principal)
CPT/HCPCS: S9480; 90853

== ENCOUNTER 2023-04-24 09:22 | Day surgery (SDC) | payer MEDICARE, MEDICAID, SELFPAY ==
[2023-04-24] VITALS (7 sets, daily range): BP systolic 80–152; BP diastolic 38–68; PULSE 64–105; RESP 16; TEMP 36.3–37; O2SAT 93–98; BMI 27.6
--- NOTE | 2023-04-24 | COLBX_PTH ---
PATIENT: CHANEL PRASAD LOC: EN U#:[id number] AGE/SX: 63/F ROOM: RE04/24/[address]: Dr. Mike Mobley DO : 1960 BED: DIS: 04/24/2023 SPEC #: [id number] RECD: 04/24/23 14:18 STATUS: HEBER REDereck #: [id number] INA: 04/24/23 00:[address]: Mike Mobley DEPT: SURGICAL PATHOLOGY RECD BY: Dakota Molina ENTERED: 04/24/23 14:19 SP TYPE: COLON BX OTHR DR: Gina Rosen DO Tissues: A - Cecum, NOS B - Ascending colon C - Transverse colon D - Descending colon E - Sigmoid colon biopsy F - Sigmoid colon biopsy G - Rectum, NOS H - Rectum, NOS Procedures: Surgery Specimen Level IV HEADER OPERATION: Colonoscopy, biopsy, polypectomy PRE-OP DIAGNOSIS: Ulcerative colitis TISSUE SUBMITTED: A - Cecum biopsy, B - Ascending biopsy, C - Transverse biopsy, D - Descending biopsy, E - Sigmoid polyp, F - Sigmoid biopsy, G - Rectal biopsy, H - Rectal polyp MICROSCOPIC DIAGNOSIS A. Cecum, biopsy: Fragments of colonic mucosa, no pathologic diagnosis. B. Ascending colon, biopsy: Fragments of colonic mucosa, no pathologic diagnosis. C. Transverse colon, biopsy: Fragments of colonic mucosa with nonspecific chronic inflammation and glandular distortion. Negative for active inflammation. D. Descending colon, biopsy: Fragments of colonic mucosa with nonspecific chronic inflammation and glandular distortion. Negative for active inflammation. E. Sigmoid colon polyp, biopsy: Inflammatory pseudopolyp. F. Sigmoid colon, biopsy: Moderate chronic active colitis. Negative for dysplasia. See microscopic description and comment. G. Rectal biopsy: Moderate chronic active colitis. Negative for dysplasia. See microscopic description and comment. H. Rectal polyp, biopsy: Fragments of inflammatory pseudopolyp. SJ:shayy 04/25/2023 COMMENT Correlation with clinical, endoscopic findings and appropriate follow up are necessary. Please make reference to previous specimen ([id number]), colon, random biopsy with diagnosis of chronic active colitis pattern of injury and rectum, biopsy with diagnosis of chronic active colitis pattern of injury. MICROSCOPIC DESCRIPTION Slides are reviewed. F. The specimen shows fragments of colonic mucosa with ulceration, acute and chronic inflammatory cell infiltrate in the lamina propria and glandular distortion. Granulomas are not seen. No evidence of dysplasia. G. The specimen shows fragments of colonic mucosa with moderate acute and chronic inflammatory cell infiltrate in the lamina propria and glandular distortion. Granulomas are not seen. No evidence of dysplasia. GROSS DESCRIPTION A - Received in fixative is one container labeled with the patient's name and designated cecum biopsy. The specimen consists of two irregular fragments of light samuel soft tissue that in aggregate measure 0.6 x 0.3 x 0.1 cm. The specimen is totally submitted in one cassette. B - Received in fixative is one container labeled with the patient's name and designated ascending biopsy. The specimen consists of multiple irregular fragments of light samuel soft tissue that in aggregate measure 1.2 x 0.3 x 0.1 cm. The specimen is totally submitted in one cassette. C - Received in fixative is one container labeled with the patient's name and designated transverse biopsy. The specimen consists of multiple irregular fragments of light samuel soft tissue that in aggregate measure 1.0 x 0.3 x 0.1 cm. The specimen is totally submitted in one cassette. D - Received in fixative is one container labeled with the patient's name and designated descending biopsy. The specimen consists of multiple irregular fragments of light samuel soft tissue that in aggregate measure 1.5 x 0.3 x 0.1 cm. The specimen is totally submitted in one cassette. E - Received in fixative is one container labeled with the patient's name and designated sigmoid polyp. The specimen consists of a samuel-pink polyp measuring 0.5 x 0.5 x 0.3 cm. The specimen is totally submitted in one cassette. F - Received in fixative is one container labeled with the patient's name and designated sigmoid biopsy. The specimen consists of multiple irregular fragments of light samuel soft tissue that in aggregate measure 1.0 x 0.5 x 0.1 cm. The specimen is totally submitted in one cassette. G - Received in fixative is one container labeled with the patient's name and designated rectal biopsy. The specimen consists of multiple irregular fragments of light samuel soft tissue that in aggregate measure 1.2 x 0.4 x 0.1 cm. The specimen is totally submitted in one cassette. H - Received in fixative is one container labeled with the patient's name and designated rectal polyp. The specimen consists of two irregular fragments of light samuel soft tissue that in aggregate measure 0.8 x 0.4 x 0.1 cm. The specimen is totally submitted in one cassette. / SJ:rg 04/24/2023 TC:2 CPT: 13929 x8
[2023-04-24] MEDS: Lactated Ringers 1,000 ML 15 ML IV (09:53)
--- NOTE | 2023-04-24 10:26 | HP.PCM_ITS ---
History and Physical Date of Admission: 04/24/23 CHANEL PRASAD, is a 63 F who presents to the office today for a follow up. PMH ruslan?s thyroiditis/hypothyroid; MS; pt reports Factor V mutation. Established with psychology. PSH hemorrhoidectomy; right ovary removal 1986; total hysterectomy 1999.? ? Prior workup:?Colonoscopy with [facility] 03.12.17?for screening purposes noting one inflammatory polyp? [facility] diagnosed IBD in 2018. Attempted medications include mesalamine, balsalazide and steroids , ineffective and cause her to feel unwell. Rowasa enemas and asacol 2019, fatigue and headaches.? EGD and colonoscopy with Dr. Jean Pierre Nam 11.30.18?for diarrhea. EGD found small hiatal hernia; LA Grade A esophagitis without dysplasia; duodenitis; chronic gastritis.? Colonoscopy found pathology with sigmoid diverticulosis; pseudomembranous entercolitis and mucosal ulceration of the entire colon with pathology changes of active colitis with mucosal ulceration, plasmacytosis, acute cryptitis, crypt microabscess formation, crypt distortion and glandular drop out.? Entyvio attempted? with serum levels 6..22 of 3 without ab formation. [facility] attempted to reduce time between infusions, denied by insurance; additional adverse reaction of SOB, tongue swelling and increased pulse.? Colonoscopy 02.17.20 with [facility]?for diarrhea ascending and transverse colon without pathologic abnormality. Sigmoid and rectum show chronic active colitis without granuloma or dysplasia? Biochemical workup [facility]?Entyvio level 3, vitamin D25 47, TIBC ? Vit B12 H1526, Iron L35, transferrin sat L11? Clostridium Difficile infection ? ? [facility] ED 8 with prednisone taper for a month but experiencing abdominal cramping, diarrhea and nausea. Discharged without acute finding, follow up with GI.? CT abd/pel [facility] 03.04.22?noting collapsed colonic loops with mild/moderate mucosal edema of bello with neovascularization along full length likely r/t chronic d isease with possible acute on chronic process possibility; colonic diverticula; small umbilical hernia.? ? *[facility] hospitalization 03.19.22-03.20.22 with diarrhea, nausea and emesis and was admitted for management of UC flare. Gastroenterology consulted same day and colonoscopy and EGD performed next day. Admitted to for management of UC. EGD and colonoscopy performed next day.? EGD and colonoscopy 03.20.22. EGD LA Grade A reflux esophagitis; medium hiatal hernia; erythematous stomach; multiple oozing duodenal ulcer, monopolar probe.? Colonoscopy Severe Mason score 3 pancolitis UC; congested mucosa of terminal ileum. Colectomy discussed and infusion pursued.? Stool calprotectin H327, Cdiff toxin +, antigen positive A/B. CMV, enteric pathogen WNL, Ova/parasite WNL and giardia WNL.? Vancomycin 125mg Q6H with Compazine suppositories BID. Will need to delay Stelara start until CDI cleared. Will require additional vancomycin for six weeks following infusion.? OV 04.23.22 doing well since completion of vancomycin though continues to have increased gas. Diarrhea, blood and abdominal pain have resolved. Weight is returning with us of Ensure. Continue with Stelara start. ? Contact 05.31.22 to report that she is having body aches. She is attending urgent care for evaluation. Struggling with eating as she is worried about having significant symptoms.? Additionally, she has signed up for medical marijuana for anxiety and helping with appetite.? ? Neurology Dr. Manzo seen 07.09.22 for anemia, myalgia, hair loss and back pain. Started on folic acid, B12 injections, ferritin and methylprednisolone injection to the back.? Psychiatry Dr. Buck seen who started amitriptyline 5mg and this has significantly improved her sleep and mood. She feels she has been doing very well with an improvement of her GI symptoms additionally.? ? OV 07.24.22 with BM fluctuating between formed and watery with urgency, though improving. Feels she is doing very well at this time.? Contact 12.27.22 with loose stools and incontinence; notes she has been having a lot of anxiety/panic attacks. Will follow up with Dr. uBck regarding anxiety; will start Lomotil ? tab.?ESR/CRP?Calp/Lacto?Serum/ Ab?C.Diff? [facility]?--/--?--/--?--/--?Pos?Vanc attempted, fever/chills/malaise? 02.07.22?--/--?--/--?-- /--?Neg? [facility]?--/5.4?--/--?--/--?--? 03.14.?--/--?--/--?--/--?Neg? 03.20.22?--/--?327/--?--/- -?Pos A/B??Vancomycin treatment completed? 04.16.22?--/--?--/--?- -/--?Neg? 06.08.22?37/<2.9?58/+?--/--?--?Stelara Infusion 05.03.22? 06.26.22?45/21.90?86/+?--/--?--? 10.18.?1/5.41?379/+?--/--?--? 05.24.23?--/--?--/--?1 /neg?--? ? Today reports that she is doing well except she has had some diarrhea since eating a salad this week. States that she also feels she may have a UTI but will be following up with her PCP about this. Is receiving her Stelara injection today. Last injection was 5..23. ROS Const Constitutional: No fatigue, fever(s), frequent falls, headache(s) or weight change ENT ENT: No headache(s) or difficulty swallowing Cardio Cardiology: No leg pain with exertion Gastro GI: Positive for abdominal pain and diarrhea; No bloating, change in bowel habits, constipation, heartburn, difficulty swallowing, Vomiting blood/hematemesis, Blood in stool, nausea/dyspepsia or vomiting Musc Musculoskeletal: No abnormal gait, joint pain, back pain, joint swelling, muscle cramps, muscle weakness, numbness, stiffness, tingling, Arthritis, sciatica, leg pain at night or leg pain with exertion Skin Skin: No dry skin, lesions, itchy eyes or rash Neuro Neurology: No abnormal gait, dizziness, frequent falls, headache(s), numbness, tingling, tremor(s), Increased tone in limbs, paralysis or seizures Psych Psychiatric: No anxiety, No depression, No paranoia, No Behavioral Problems, No Compulsive Behavior, No hyperactivity, No inattentiveness, No obsessions/compulsions, No Temper Tantrums and No suicidal ideation Endo Endocrine: No fatigue or weight change Aller/Imm Allergy/Immunologic: No itchy eyes Miguelito/Lymp Hematologic/Lymphatic: No easy bleeding or easy bruising Exam Const General: cooperative, comfortable and no acute distress Orientation: alert, awake and oriented x3 HENNC Head: normal to inspection, normocephalic and atraumatic Ears: hearing grossly normal bilaterally Neck Neck: normal visual inspection, full ROM, no lymphadenopathy and supple Neck mass: No Thyroid: thyroid normal Resp Effort & Inspection: normal respiratory effort and able to speak in complete sentences Auscultation: Bilateral: Clear to Auscultation Cardio Rate: regular rate Rhythm: regular rhythm Heart Sounds: S1 normal and S2 normal GI Palpation: soft (Nontender, no palpable organomegaly.) Neuro General: patient alert, patient awake, patient oriented x3, moves all extremities and CN's II-XI intact bilaterally Extrem General: no clubbing, cyanosis or edema Psych Appearance: grossly normal Mental Status: mental status grossly normal Mood: congruent mood Affect: normal affect Office Procedures Injections Stelara Injection: Procedure performed by: Vilma Machado Site of injection: Sub-Q Dose of injection: 1ml Comments: 1 ml of Stelara injected subcutaneously into the right arm. Quality Reporting Tobacco Screening ([facility] 138) Smoking Status: Never smoker Assessment and Plan Assessment and Plan (1) Ulcerative colitis: Status: Chronic Qualifiers: Ulcerative colitis location: ulcerative pancolitis Digestive disease complication type: other complication Qualified Code(s): K51.018 - Ulcerative (chronic) pancolitis with other complication Plan: Severe sims ulcerative colitis. She is off of her prednisone taper and has received her Stelara infusion and one 8-week injection. I told her we will need to draw Stelara levels, ESR, CRP and antibody levels to Stelara after 4-5 maintenance doses. She is having mostly formed bowel movements every day. She is not having any more than 3 a day. She finds that a lot of her symptoms are food related. She has been adjusting her diet to eat more balanced diet. She is not showing any extraintestinal manifestations of ulcerative colitis such as no arthritis, vision changes, skin changes. She had a baseline CT scan but will need an MRCP due to the increased risk of primary sclerosing cholangitis with ulcerative colitis. She is taking a lot of Tylenol. She says she is taking up to 3 g secondary to her abdominal pain. I told her for cramping she is to take the dicyclomine and the Tylenol. I will also give her tramadol to take up to twice a day for 2 weeks. I gave her directions of taking the Lomotil before she leaves the house that way she does not have to worry about having any accidents. Medications: New dicyclomine 20 mg PO TID 90 tabs 2RF I have examined the patient and the H&P has been reviewed. There are no clinical changes since date of exam.
--- NOTE | 2023-04-24 11:00 | OP.COLON_ITS ---
Patient Name: Devika Champion Procedure Date: 04/24/2023 10:23 AM Date of : 1960 Age: 63 Procedure: Colonoscopy Indications: Chronic ulcerative pancolitis Providers: Mike Mobley DO Referring MD: Mike Mobley DO Medicines: Monitored Anesthesia Care Patient Profile: This is a 63 year old female. Refer to note in patient chart for documentation of history and physical. Last Colonoscopy: 1 year ago. Complications: No immediate complications. Procedure: Pre-Anesthesia Assessment: - Prior to the procedure, a History and Physical was performed, and patient medications and allergies were reviewed. The patient is competent. The risks and benefits of the procedure and the sedation options and risks were discussed with the patient. All questions were answered and informed consent was obtained. Patient identification and proposed procedure were verified by the physician in the pre-procedure area. Mental Status Examination: alert and oriented. Airway Examination: normal oropharyngeal airway and neck mobility. Respiratory Examination: clear to auscultation. CV Examination: normal. Prophylactic Antibiotics: The patient does not require prophylactic antibiotics. Prior Anticoagulants: The patient has taken no anticoagulant or antiplatelet agents. After reviewing the risks and benefits, the patient was deemed in satisfactory condition to undergo the procedure. The anesthesia plan was to use monitored anesthesia care (MAC). Immediately prior to administration of medications, the patient was re-assessed for adequacy to receive sedatives. The heart rate, respiratory rate, oxygen saturations, blood pressure, adequacy of pulmonary ventilation, and response to care were monitored throughout the procedure. The physical status of the patient was re-assessed after the procedure. After I obtained informed consent, the scope was passed under direct vision. Throughout the procedure, the patient's blood pressure, pulse, and oxygen saturations were monitored continuously. The Colonoscope was introduced through the anus and advanced to the cecum, identified by appendiceal orifice and ileocecal valve. The colonoscopy was performed without difficulty. The patient tolerated the procedure well. The quality of the bowel preparation was adequate. The terminal ileum, ileocecal valve, appendiceal orifice, and rectum were photographed. Scope In: 10:34:20 AM Scope Withdrawal Time 0 hours 13 minutes 28 seconds Scope Out: 10:49:31 AM Total Procedure Duration Time 0 hours 15 minutes 11 seconds Findings: The perianal and digital rectal examinations were normal. Inflammation was found in a continuous and circumferential pattern from the anus to the cecum. This was graded as Mason Score 2 (moderate, with marked erythema, absent vascular pattern, friability, erosions), and when compared to the previous examination, the findings are improved. Biopsies were taken with a cold forceps for histology. Verification of patient identification for the specimen was done. Estimated blood loss was minimal. Two sessile polyps were found in the rectum and sigmoid colon. The polyps were 1 to 2 mm in size. These polyps were removed with a hot snare. Resection and retrieval were complete. Verification of patient identification for the specimen was done. Estimated blood loss was minimal. Impression: - Moderately active (Mason Score 2) pancolitis ulcerative colitis, improved since the last examination. Biopsied. - Two 1 to 2 mm polyps in the rectum and in the sigmoid colon, removed with a hot snare. Resected and retrieved. Recommendation: - Repeat colonoscopy in 1 year for surveillance. - Continue present medications. Procedure Code(s): --- Professional --- 52642, Colonoscopy, flexible; with removal of tumor(s), polyp(s), or other lesion(s) by snare technique 23195, 59, Colonoscopy, flexible; with biopsy, single or multiple CPT copyright 2021 [employer]. All rights reserved. The codes documented in this report are preliminary and upon satellite dish installer review may be revised to meet current compliance requirements. Mike Mobley DO 04/24/2023 10:59:47 AM This report has been signed electronically. Number of Addenda: 0 Note Initiated On: 04/24/2023 10:23 AM
--- NOTE | 2023-04-24 11:00 | OP.CCLET_ITS ---
04/24/2023 Gina Rosen Do Re : Colonoscopy procedure for Devika Champion Dear Silas This procedure was performed on April. My impressions and recommendations are as follows: Impressions : - Moderately active (Mason Score 2) pancolitis ulcerative colitis, improved since the last examination. Biopsied. - Two 1 to 2 mm polyps in the rectum and in the sigmoid colon, removed with a hot snare. Resected and retrieved. Recommendations : - Repeat colonoscopy in 1 year for surveillance. - Continue present medications. My findings are described in the full procedure note, which is enclosed. If I can be of further assistance, please feel free to contact me at . Sincerely, Mike Mobley, 04/24/2023 10:59:47 AM This report has been signed electronically.
== END 2023-04-24 12:00 | disposition home or self-care (01) ==
LOC: EN 09:23 → AC 09:25
PROVIDERS: PCP Family Medicine; Referring Provider Family Medicine; Visit Provider Internal Medicine Gastroenterology
PROC: 0DJD8ZZ Inspection of Lower Intestinal Tract, Via Natural or Artificial Opening Endoscopic (ICD-10-PCS; CPT 45378; principal; 2023-04-24 10:25)
DX: K51.018 Ulcerative (chronic) pancolitis with other complication (principal); G35 Multiple sclerosis; D68.51 Activated protein C resistance; K62.1 Rectal polyp; Z90.710 Acquired absence of both cervix and uterus; F41.9 Anxiety disorder, unspecified; Z79.899 Other long term (current) drug therapy; Z87.19 Personal history of other diseases of the digestive system; E03.9 Hypothyroidism, unspecified; Z79.890 Hormone replacement therapy
CPT/HCPCS: 45385; 45380; 88305; J7120; J2405

== ENCOUNTER → 2023-05-30 | Outpatient (CLI) | payer MEDICARE, MEDICAID, SELFPAY ==
[2023-05-30 15:16] LABS: Erythrocyte Sedimentation Rate 6 mm/hr (0-30)
[2023-05-30 15:20] LABS: Absolute Lymphocyte Count 2.51 X10^3/uL (0.83-4.51); Absolute Neutrophil Count 2.1 X10^3/uL (2.0-7.7); Basophil# 0.07 X10^3/uL; Basophil% 1.4 % (0-1); Eosinophil# 0.07 X10^3/uL; Eosinophils% 1.4 % (0-5); Hematocrit 41.7 % (37-47); Hemoglobin 13.4 g/dL (12.0-15.0); Lymphocyte # 2.51 X10^3/ul (0.83-4.51); Lymphocyte % 49.9 % (19-41); Mean Corp Hgb Conc 32.1 g/dL (32-36); Mean Corpuscular Hgb 30.2 pg (27.0-32.0); Mean Corpuscular Volume 93.9 fL (81-99); Monocyte# 0.31 X10^3/uL; Monocyte% 6.2 % (0-10); NRBC Flagged by Analyzer 0 % (0-5); Neutrophil # 2.06 X10^3/uL (2.7-7.7); Neutrophil % 40.9 % (47-70); Platelet Count 265 K/mm3 (150-450); RBC Distribution Width CV 13.1 % (11.6-14.6); RBC Distribution Width SD 44.8 fl (35.1-43.9); Red Blood Count 4.44 M/mm3 (4.2-5.4)
[2023-05-30 15:54] LABS: AST(SGOT) 15 U/L (15-37); Alanine Aminotransfer ALT/SGPT 34 U/L (13-56); Albumin, Serum 3.5 g/dL (3.2-5.0); Alkaline Phosphatase 115 U/L (45-117); Anion Gap 7 (5-15); BUN 16 mg/dL (7-18); BUN/Creat Ratio 23.4 RATIO (10-20); CRP 8.16 mg/L (0.0-3.0); Calcium,Total 8.8 mg/dL (8.5-10.1); Chloride 106 mmol/L (98-107); Creatinine, Serum 0.68 mg/dL (0.55-1.02); EST Glomerular Filtration Rate 93 mL/min (>60); Est Glom Filt Rate - Afr Amer 112 mL/min (>60); Globulin 3.4 g/dL (2.2-4.2); Glucose 98 mg/dL (74-106); LDH 173 U/L (84-246); Potassium 3.8 mmol/L (3.5-5.1); Protein, Total 6.9 g/dL (6.4-8.2); Sodium Level 141 mmol/L (136-145)
[2023-06-03 18:07] LABS: QNTFERON TB Mitogen Value > 10.00 IU/mL (.); QNTFERON TB Nil Value 0.07 IU/mL (.); QNTFERON TB1+ Ag Value 0.05 IU/mL (.); QNTFERON TB2+ Ag Value 0.06 IU/mL (.); QNTIFERON TB Positive Criteria Negative (Negative)
== END | disposition home or self-care (01) ==
LOC: LAB 13:40
PROVIDERS: PCP Family Medicine; Referring Provider Internal Medicine Gastroenterology; Visit Provider Internal Medicine Gastroenterology
DX: K51.90 Ulcerative colitis, unspecified, without complications (principal); K51.018 Ulcerative (chronic) pancolitis with other complication
CPT/HCPCS: 36415; 80053; 83615; 85025; 85652; 86140; 86480

== ENCOUNTER 2023-06-02 12:52 | Outpatient (CLI) | payer MEDICARE, MEDICAID, SELFPAY ==
[2023-06-09 21:07] LABS: Calprotectin, Stool 53 ug/g (0-120)
== END 2023-06-02 23:59 | disposition home or self-care (01) ==
PROVIDERS: PCP Family Medicine; Referring Provider Internal Medicine Gastroenterology; Visit Provider Internal Medicine Gastroenterology
DX: K51.90 Ulcerative colitis, unspecified, without complications (principal); Z86.2 Personal history of diseases of the blood and blood-forming organs and certain disorders involving the immune mechanism
CPT/HCPCS: 36415; 82728; 83540; 83630; 83993

== ENCOUNTER → 2023-06-02 | Outpatient (CLI) | payer MEDICARE, MEDICAID, SELFPAY ==
[2023-06-02 18:15] LABS: Ferritin 275 ng/mL (8-252); Iron 45 ug/dL (50-170)
== END | disposition home or self-care (01) ==
LOC: MTLAB 15:10
PROVIDERS: PCP Family Medicine; Referring Provider Psychiatry & Neurology Neurology; Visit Provider Psychiatry & Neurology Neurology
DX: Z86.2 Personal history of diseases of the blood and blood-forming organs and certain disorders involving the immune mechanism (principal)
CPT/HCPCS: 36415; 82728; 83540

== ENCOUNTER 2023-06-30 11:31 | Outpatient (CLI) | payer MEDICARE, SELFPAY ==
[2023-06-30 11:36] VITALS: BP 130/55; PULSE 78; RESP 16; TEMP 36.1; O2SAT 97
[2023-06-30] MEDS: 0.9% NaCl Peripheral Flush Adult/Peds IV (11:51)
[2023-06-30] MEDS: Ferric Derisomaltose (Monoferric) 1,000 MG in 0.9% NaCl 100 ML 330 MG IV (12:01)
[2023-06-30] MEDS: 0.9% NaCl IVPB Med Flush (250 mL) 15 ML IV (12:01)
[2023-06-30 12:37] VITALS: BP 125/73; PULSE 71
== END 2023-06-30 11:32 | disposition home or self-care (01) ==
PROVIDERS: PCP Family Medicine; Referring Provider Psychiatry & Neurology Neurology; Visit Provider Psychiatry & Neurology Neurology
DX: D50.9 Iron deficiency anemia, unspecified (principal); E55.9 Vitamin D deficiency, unspecified
CPT/HCPCS: 96365; J1437; J7050; A4216

== ENCOUNTER → 2023-09-05 | Outpatient (CLI) | payer OTHER, SELFPAY ==
[2023-09-05 11:03] LABS: Cholesterol 216 mg/dL (200); High Density Lipoprotein 50 mg/dL; T4 Free Direct 0.84 ng/dL (0.76-1.46); Thyroid Stim Hormone (TSH) 2.63 uIU/mL (0.358-3.74); Triglycerides 179 mg/dL; Very Low Density Lipoprotein 36 mg/dL (5-40)
[2023-09-05 11:05] LABS: Vitamin B12 551 pg/mL (211-911); Vitamin D,25 Hydroxy 68.2 ng/mL
== END | disposition home or self-care (01) ==
PROVIDERS: PCP Family Medicine; Referring Provider Family Medicine; Visit Provider Family Medicine
DX: E03.9 Hypothyroidism, unspecified (principal); K21.9 Gastro-esophageal reflux disease without esophagitis; Z13.6 Encounter for screening for cardiovascular disorders
CPT/HCPCS: 36415; 80061; 82306; 82607; 84439; 84443

== ENCOUNTER → 2023-09-26 | Outpatient (CLI) | payer OTHER, SELFPAY ==
--- NOTE | 2023-09-26 17:43 | CT_ITS ---
INDICATION: Intravertebral disc degeneration, lumbosacral region. EXAMINATION: CT LUMBAR SPINE - CT Spine Lumbar W/O Contrast Injection TECHNIQUE: Helically acquired images were obtained of the lumbar spine. 2D reformats were reviewed. A radiation dose optimization technique was used for this scan. IV Contrast dosage and agent: None. RADIATION DOSAGE (If Supplied By Facility): CTDIvol = ( 14.43 ) mGy, DLP = ( 480.74 ) mGycm COMPARISON: No relevant prior comparison study available FINDINGS: VERTEBRAE: No acute fracture. Prominent Schmorl''s nodes superior endplate L1-L3. No discrete lytic or blastic abnormality observed. Normal alignment. DISCS and SPINAL CANAL: Disc heights are preserved. No significant stenosis. VISUALIZED ABDOMEN: Visualized abdominal aorta is not dilated. The colon edema demonstrated in the included rectosigmoid colon similar to prior study. Stable 3.5 cm left ovarian cyst. CT/Spine Lumbar without Contrast IMPRESSION: No acute bony abnormality or significant degenerative disc changes. Stable and likely chronic mucosal thickening of the sigmoid colon. Electronically Signed: Ham Ayala MD at 0:00 EST ,
== END | disposition home or self-care (01) ==
LOC: CT 17:40
PROVIDERS: PCP Family Medicine; Referring Provider Anesthesiology Pain Medicine; Visit Provider Anesthesiology Pain Medicine
DX: M51.37 Other intervertebral disc degeneration, lumbosacral region (principal)
CPT/HCPCS: 72131

== ENCOUNTER → 2023-12-02 | Outpatient (CLI) | payer OTHER, SELFPAY ==
[2023-12-02 15:27] LABS: Hematocrit 41.9 % (37-47); Hemoglobin 13.8 g/dL (12.0-15.0); Mean Corp Hgb Conc 32.9 g/dL (32-36); Mean Corpuscular Hgb 30.7 pg (27.0-32.0); Mean Corpuscular Volume 93.3 fL (81-99); Mean Platelet Vol. 10.5 fl (6.2-12.0); Platelet Count 222 K/mm3 (150-450); RBC Distribution Width CV 12.6 % (11.6-14.6); RBC Distribution Width SD 43.4 fl (35.1-43.9); Red Blood Count 4.49 M/mm3 (4.2-5.4); White Blood Count 5.4 K/mm3 (4.4-11.0)
[2023-12-02 15:33] LABS: Ferritin 353 ng/mL (8-252); Iron 70 ug/dL (50-170)
== END | disposition home or self-care (01) ==
LOC: MTLAB 12:34
PROVIDERS: PCP Family Medicine; Referring Provider Psychiatry & Neurology Neurology; Visit Provider Psychiatry & Neurology Neurology
DX: E61.1 Iron deficiency (principal); Z86.2 Personal history of diseases of the blood and blood-forming organs and certain disorders involving the immune mechanism
CPT/HCPCS: 36415; 82728; 83540; 85027

== ENCOUNTER 2023-12-04 06:28 | Day surgery (SDC) | payer MEDICARE, SELFPAY ==
[2023-12-04 06:45] VITALS: BP 125/52; PULSE 93; RESP 16; TEMP 36.1; O2SAT 98; BMI 28.3
[2023-12-04] MEDS: Lactated Ringers 1,000 ML 15 ML IV (06:51)
--- NOTE | 2023-12-04 07:30 | COLBX_PTH ---
PATIENT: CHANEL PRASAD LOC: EN U#:[id number] AGE/SX: 63/F ROOM: RE12/04/[address]: Dr. Mike Mobley DO : 1960 BED: DIS: 12/04/2023 SPEC #: [id number] RECD: 12/04/23 09:18 STATUS: HEBER JUAN #: [id number] INA: 12/04/23 07:[address]: Mike Mobley DEPT: SURGICAL PATHOLOGY RECD BY: Ba Gentile ENTERED: 12/04/23 12:30 SP TYPE: COLON BX OTHR DR: Lelia Desai MD Tissues: A - Cecum, NOS B - Ascending colon C - Transverse colon D - Descending colon E - Sigmoid colon biopsy F - Rectum, NOS Procedures: Surgery Specimen Level IV HEADER OPERATION: Colonoscopy, biopsy PRE-OP DIAGNOSIS: Ulcerative colitis TISSUE SUBMITTED: A- Cecum biopsy, B- Ascending biopsy, C- Transverse biopsy, D- Descending biopsy, E- Sigmoid biopsy, F- Rectal biopsy MICROSCOPIC DIAGNOSIS A. Cecum, biopsy: Fragments of colonic mucosa, no pathologic diagnosis. B. Ascending colon, biopsy: Fragments of colonic mucosa, no pathologic diagnosis. C. Transverse colon, biopsy: Fragments of colonic mucosa with minimal glandular distortion. Negative for active inflammation. D. Descending colon, biopsy: Fragments of colonic mucosa with minimal glandular distortion. Negative for active inflammation. E. Sigmoid colon, biopsy: Fragments of colonic mucosa with minimal glandular distortion. Negative for active inflammation. F. Rectum, biopsy: Moderate chronic active colitis. See microscopic description and comment. BRADFORD/ 12/05/23 COMMENT The findings are consistent for mature bowel disease. Correlation with clinical, endoscopic findings and appropriate follow up are necessary. MICROSCOPIC DESCRIPTION Slides are reviewed. F. This specimen shows fragments of anorectal mucosa with focal ulceration, granulation tissue reaction, acute and chronic inflammatory cells infiltrates in the lamina propria and cyrptitis. Granulomas are not seen. No evidence of dysplasia. GROSS DESCRIPTION A- Received in fixative is one container labeled with the patient's name and designated Cecum biopsy. The specimen consists of multiple irregular fragments of light samuel soft tissue that in aggregate measure 1.5 x 0.4 x 0.1 cm. The specimen is totally submitted in one cassette. B. Received in fixative is one container labeled with the patient's name and designated Ascending biopsy. The specimen consists of multiple irregular fragments of light samuel soft tissue that in aggregate measure 1.0 x 0.3 x 0.1 cm. The specimen is totally submitted in one cassette. C. Received in fixative is one container labeled with the patient's name and designated Transverse biopsy. The specimen consists of multiple irregular fragments of light samuel soft tissue that in aggregate measure 2.0 x 0.5 x 0.1 cm. The specimen is totally submitted in one cassette. D. Received in fixative is one container labeled with the patient's name and designated Descending biopsy. The specimen consists of multiple irregular fragments of light samuel soft tissue that in aggregate measure 1.0 x 0.3 x 0.1 cm. The specimen is totally submitted in one cassette. E. Received in fixative is one container labeled with the patient's name and designated Sigmoid biopsy. The specimen consists of multiple irregular fragments of light samuel soft tissue that in aggregate measure 0.6 x 0.6 x 0.1 cm. The specimen is totally submitted in one cassette. F. Received in fixative is one container labeled with the patient's name and designated Rectal biopsy. The specimen consists of multiple irregular fragments of light samuel soft tissue that in aggregate measure 1.5 x 0.3 x 0.1 cm. The specimen is totally submitted in one cassette. BRADFORD/ 12/04/2023 TC:2 CPT:88510b8
--- NOTE | 2023-12-04 08:18 | PCM.HP.BLA ---
History and Physical Date of Admission: 12/04/23 CHANEL PRASAD, is a 63 F who presents to the office today for follow up. PMH ruslan?s thyroiditis/hypothyroid; MS; pt reports Factor V mutation. Established with psychology. PSH hemorrhoidectomy; right ovary removal 1986; total hysterectomy 1999.? ? Prior workup:?Colonoscopy with [facility] 03.12.17?for screening purposes noting one inflammatory polyp? [facility] diagnosed IBD in 2018. Attempted medications include mesalamine, balsalazide and steroids , ineffective and cause her to feel unwell. Rowasa enemas and asacol 2019, fatigue and headaches.? EGD and colonoscopy with Dr. Jean Pierre Nam 11.30.18?for diarrhea. EGD found small hiatal hernia; LA Grade A esophagitis without dysplasia; duodenitis; chronic gastritis.? Colonoscopy found pathology with sigmoid diverticulosis; pseudomembranous entercolitis and mucosal ulceration of the entire colon with pathology changes of active colitis with mucosal ulceration, plasmacytosis, acute cryptitis, crypt microabscess formation, crypt distortion and glandular drop out.? Entyvio attempted? with serum levels 6..22 of 3 without ab formation. [facility] attempted to reduce time between infusions, denied by insurance; additional adverse reaction of SOB, tongue swelling and increased pulse.? Colonoscopy 02.17.20 with [facility]?for diarrhea ascending and transverse colon without pathologic abnormality. Sigmoid and rectum show chronic active colitis without granuloma or dysplasia? Biochemical workup [facility]?Entyvio level 3, vitamin D25 47, TIBC ? Vit B12 H1526, Iron L35, transferrin sat L11? Clostridium Difficile infection ? ? [facility] ED 8. with prednisone taper for a month but experiencing abdominal cramping, diarrhea and nausea. Discharged without acute finding, follow up with GI.? CT abd/pel [facility] 03.04.22?noting collapsed colonic loops with mild/moderate mucosal edema of bello with neovascularization along full length likely r/t chronic disease with possible acute on chronic process possibility; colonic diverticula; small umbilical hernia.? ? *[facility] hospitalization 03.19.22-03.20.22 with diarrhea, nausea and emesis and was admitted for management of UC flare. Gastroenterology consulted same day and colonoscopy and EGD performed next day. Admitted to for management of UC. EGD and colonoscopy performed next day.? EGD and colonoscopy 03.20.22. EGD LA Grade A reflux esophagitis; medium hiatal hernia; erythematous stomach; multiple oozing duodenal ulcer, monopolar probe.? Colonoscopy Severe Mason score 3 pancolitis UC; congested mucosa of terminal ileum. Colectomy discussed and infusion pursued.? Stool calprotectin H327, Cdiff toxin +, antigen positive A/B. CMV, enteric pathogen WNL, Ova/parasite WNL and giardia WNL.? Vancomycin 125mg Q6H with Compazine suppositories BID. Will need to delay Stelara start until CDI cleared. Will require additional vancomycin for six weeks following infusion.? OV 04.23.22 doing well since completion of vancomycin though continues to have increased gas. Diarrhea, blood and abdominal pain have resolved. Weight is returning with us of Ensure. Continue with Stelara start. ? Contact 05.31.22 to report that she is having body aches. She is attending urgent care for evaluation. Struggling with eating as she is worried about having significant symptoms.? Additionally, she has signed up for medical marijuana for anxiety and helping with appetite.? ? Neurology Dr. Manzo seen 07.09.22 for anemia, myalgia, hair loss and back pain. Started on folic acid, B12 injections, ferritin and methylprednisolone injection to the back.? Psychiatry Dr. Buck seen who started amitriptyline 5mg and this has significantly improved her sleep and mood. She feels she has been doing very well with an improvement of her GI symptoms additionally.? ? OV 07.24.22 with BM fluctuating between formed and watery with urgency, though improving. Feels she is doing very well at this time.? Contact 12.27.22 with loose stools and incontinence; notes she has been having a lot of anxiety/panic attacks. Will follow up with Dr. Buck regarding anxiety; will start Lomotil ? tab.? OV 11.13. pt reports she is doing similar to her last visit. She reports that her BM are less watery and more snake-like. ROS Const Constitutional: No fatigue, fever(s) or weight change ENT ENT: No difficulty swallowing Gastro GI: No abdominal pain, belching, bloating, change in bowel habits, change in stool character, coffee ground emesis, constipation, cramping, diarrhea, heartburn, difficulty swallowing, feeling full early, excessive flatus, incontinent of stools, Vomiting blood/hematemesis, Blood in stool, loose stools, Black,tarry stools, nausea/dyspepsia, pain with swallowing, vomiting or other Musc Musculoskeletal: Positive for back pain, numbness, tingling, Arthritis, sciatica and restless legs; No joint pain Skin Skin: Positive for dry skin; No yellowing of the eye or itchy eyes Neuro Neurology: Positive for numbness, tingling and restless legs Psych Psychiatric: Positive for anxiety and No depression Endo Endocrine: No fatigue or weight change Aller/Imm Allergy/Immunologic: No itchy eyes Miguelito/Lymp Hematologic/Lymphatic: Positive for easy bruising; No easy bleeding Exam Const General: cooperative, comfortable and no acute distress Orientation: alert, awake and oriented x3 HENOH Head: normal to inspection, normocephalic and atraumatic Ears: hearing grossly normal bilaterally Neck Neck: normal visual inspection, full ROM, no lymphadenopathy and supple Neck mass: No Thyroid: thyroid normal Resp Effort & Inspection: normal respiratory effort and able to speak in complete sentences Auscultation: Bilateral: Clear to Auscultation Cardio Rate: regular rate Rhythm: regular rhythm Heart Sounds: S1 normal and S2 normal GI Palpation: soft (Nontender, no palpable organomegaly.) Neuro General: patient alert, patient awake, patient oriented x3, moves all extremities and CN's II-XI intact bilaterally Extrem General: no clubbing, cyanosis or edema Psych Appearance: grossly normal Mental Status: mental status grossly normal Mood: congruent mood Affect: normal affect Office Procedures Injections stelara 90mg/ml: Procedure performed by: Daya Simmons Site of injection: Sub-Q (right ) Dose of injection: 90mg/ml Comments: lot [id number] exp. 02/12 Assessment and Plan Assessment and Plan (1) Ulcerative colitis: Status: Chronic Qualifiers: Ulcerative colitis location: ulcerative pancolitis Digestive disease complication type: other complication Qualified Code(s): K51.018 - Ulcerative (chronic) pancolitis with other complication Plan: Severe sims ulcerative colitis. She is off of her prednisone taper and has received her Stelara infusion and one 8-week injection. I told her we will need to draw Stelara levels, ESR, CRP and antibody levels to Stelara after 4-5 maintenance doses. She is having mostly formed bowel movements every day. She is not having any more than 3 a day. She finds that a lot of her symptoms are food related. She has been adjusting her diet to eat more balanced diet. She is not showing any extraintestinal manifestations of ulcerative colitis such as no arthritis, vision changes, skin changes. She had a baseline CT scan but will need an MRCP due to the increased risk of primary sclerosing cholangitis with ulcerative colitis. She is taking a lot of Tylenol. She says she is taking up to 3 g secondary to her abdominal pain. I told her for cramping she is to take the dicyclomine and the Tylenol. I will also give her tramadol to take up to twice a day for 2 weeks. I gave her directions of taking the Lomotil before she leaves the house that way she does not have to worry about having any accidents. Coding Level of Care Code Off vis,est,level 4 Diagnoses Ulcerative pancolitis with other complication K51.018 Ulcerative colitis location: ulcerative pancolitis Digestive disease complication type: other complication I have examined the patient and the H&P has been reviewed. There are no clinical changes since date of exam.
[2023-12-04 08:41] VITALS: BP 110/57; BP 125/52; PULSE 69; RESP 16; TEMP 36.1; O2SAT 96
--- NOTE | 2023-12-04 08:44 | OP.CCLET_ITS ---
12/04/2023 Gina Rosen Do Re : Colonoscopy procedure for Devika Champion Dear Silas This procedure was performed on November. My impressions and recommendations are as follows: Impressions : - Mild (Mason Score 1) ulcerative colitis, unchanged since the last examination. Biopsied. - The examination was otherwise normal on direct and retroflexion views. Recommendations : - Discharge patient to home. - Resume previous diet. - Use Entocort EC (budesonide) 9 mg PO one time per day. - Repeat colonoscopy. - Continue present medications. My findings are described in the full procedure note, which is enclosed. If I can be of further assistance, please feel free to contact me at . Sincerely, Mike Mobley, 12/04/2023 8:43:52 AM This report has been signed electronically.
--- NOTE | 2023-12-04 08:44 | OP.COLON_ITS ---
Patient Name: Devika Champion Procedure Date: 12/04/2023 8:14 AM Date of : 1960 Age: 63 Procedure: Colonoscopy Indications: Chronic ulcerative pancolitis Providers: Mike Mobley DO Medicines: Monitored Anesthesia Care Patient Profile: This is a 63 year old female. Refer to note in patient chart for documentation of history and physical. Last Colonoscopy: 1 year ago. Complications: No immediate complications. Procedure: Pre-Anesthesia Assessment: - Prior to the procedure, a History and Physical was performed, and patient medications and allergies were reviewed. The patient is competent. The risks and benefits of the procedure and the sedation options and risks were discussed with the patient. All questions were answered and informed consent was obtained. Patient identification and proposed procedure were verified by the physician in the pre-procedure area. Mental Status Examination: alert and oriented. Airway Examination: normal oropharyngeal airway and neck mobility. Respiratory Examination: clear to auscultation. CV Examination: normal. Prophylactic Antibiotics: The patient does not require prophylactic antibiotics. Prior Anticoagulants: The patient has taken no anticoagulant or antiplatelet agents. After reviewing the risks and benefits, the patient was deemed in satisfactory condition to undergo the procedure. The anesthesia plan was to use monitored anesthesia care (MAC). Immediately prior to administration of medications, the patient was re-assessed for adequacy to receive sedatives. The heart rate, respiratory rate, oxygen saturations, blood pressure, adequacy of pulmonary ventilation, and response to care were monitored throughout the procedure. The physical status of the patient was re-assessed after the procedure. After I obtained informed consent, the scope was passed under direct vision. Throughout the procedure, the patient's blood pressure, pulse, and oxygen saturations were monitored continuously. The colonoscope was introduced through the anus and advanced to the terminal ileum. The colonoscopy was performed without difficulty. The patient tolerated the procedure well. The quality of the bowel preparation was good. Scope In: 8:24:49 AM Scope Withdrawal Time 0 hours 10 minutes 23 seconds Scope Out: 8:36:55 AM Total Procedure Duration Time 0 hours 12 minutes 6 seconds Findings: The perianal and digital rectal examinations were normal. Inflammation was found in a continuous and circumferential pattern from the anus to the splenic flexure. This was graded as Mason Score 1 (mild, with erythema, decreased vascular pattern, mild friability), and when compared to the previous examination, the findings are unchanged. Biopsies were taken with a cold forceps for histology. Verification of patient identification for the specimen was done. Estimated blood loss was minimal. Biopsies were taken with a cold forceps for histology. Verification of patient identification for the specimen was done. Estimated blood loss was minimal. The exam was otherwise without abnormality on direct and retroflexion views. Impression: - Mild (Mason Score 1) ulcerative colitis, unchanged since the last examination. Biopsied. - The examination was otherwise normal on direct and retroflexion views. Recommendation: - Discharge patient to home. - Resume previous diet. - Use Entocort EC (budesonide) 9 mg PO one time per day. - Repeat colonoscopy. - Continue present medications. Procedure Code(s): --- Professional --- 23428, Colonoscopy, flexible; with biopsy, single or multiple CPT copyright 2021 [employer]. All rights reserved. The codes documented in this report are preliminary and upon coppersmith apprentice review may be revised to meet current compliance requirements. Mike Mobley DO 12/04/2023 8:43:52 AM This report has been signed electronically. Number of Addenda: 0 Note Initiated On: 12/04/2023 8:14 AM
[2023-12-04 08:45] VITALS: BP 105/58; BP 125/52; PULSE 73; RESP 16; O2SAT 95
[2023-12-04 08:50] VITALS: BP 102/58; BP 125/52; PULSE 80; RESP 16; O2SAT 93
[2023-12-04 08:55] VITALS: BP 109/70; BP 125/52; PULSE 73; RESP 16; TEMP 36.1; O2SAT 95
[2023-12-04 09:10] VITALS: BP 125/52
== END 2023-12-04 09:20 | disposition home or self-care (01) ==
LOC: EN 06:31 → AC 06:44
PROVIDERS: PCP Family Medicine; Referring Provider Family Medicine; Visit Provider Internal Medicine Gastroenterology
PROC: 0DJD8ZZ Inspection of Lower Intestinal Tract, Via Natural or Artificial Opening Endoscopic (ICD-10-PCS; CPT 45378; principal; 2023-12-04 07:25)
DX: K51.018 Ulcerative (chronic) pancolitis with other complication (principal)
CPT/HCPCS: 45380; 88305; J7120; J2405

== ENCOUNTER → 2023-12-18 | Outpatient (CLI) | payer MEDICARE, SELFPAY ==
[2023-12-18 10:30] LABS: CPK Total, Creatine Kinase 52 U/L (26-192)
[2023-12-19 16:10] LABS: Aldolase 3.7 U/L (3.3-10.3)
== END | disposition home or self-care (01) ==
LOC: MTLAB 08:27
PROVIDERS: PCP Family Medicine; Referring Provider Internal Medicine Gastroenterology; Visit Provider Internal Medicine Gastroenterology
DX: M62.838 Other muscle spasm (principal)
CPT/HCPCS: 36415; 82085; 82550

== ENCOUNTER → 2024-02-06 | Outpatient (CLI) | payer MEDICARE, SELFPAY ==
--- NOTE | 2024-02-06 09:44 | BI_ITS ---
MAMMOGRAPHY - BILATERAL SCREENING REASON FOR EXAM: Female, 63 years old. Routine annual screening examination. PERTINENT HISTORY: Aunts with breast cancer. Prior left stereotactic breast biopsy. TECHNIQUE: Digital bilateral breast sunny (3D mammographic acquisition) in the CC and MLO projections. 2-D mediolateral oblique (MLO) and craniocaudad (CC) views of both breasts were obtained. CAD: Full Field Digital Mammography with Computer Added Detection was performed. COMPARISON: Comparison is made with prior study dated February 04, 2023 and November 14, 2021. FINDINGS: Breast Composition: There are scattered areas of fibroglandular density. There are no dominant masses or suspicious calcifications. A tissue clip marker is seen in the upper mid medial aspect of the left breast. No other significant abnormalities are identified. There has been no significant change since the prior study. BI/SCRN MAMM (CAD)W/SUNNY BILAT IMPRESSION: Stable bilateral screening mammogram. Yearly follow-up mammogram recommended. (A) ASSESSMENT CATEGORY: BIRADS Category 2: Benign. A letter regarding these results will be sent to the patient by the facility within 30 days. Approximately 10% of breast cancers are not detected by mammography. A normal mammogram should not delay biopsy of a clinically suspicious abnormality. [id number] Electronically Signed: Rios Winchester MD at 10:33 EDT ,
== END | disposition home or self-care (01) ==
LOC: OPBI 09:42
PROVIDERS: PCP Family Medicine; Referring Provider Family Medicine; Visit Provider Family Medicine
DX: Z12.31 Encounter for screening mammogram for malignant neoplasm of breast (principal)
CPT/HCPCS: 77063; 77067

== ENCOUNTER → 2024-02-20 | Outpatient (CLI) | payer MEDICARE, SELFPAY ==
--- NOTE | 2024-02-20 16:45 | CT_ITS ---
EXAM: CT HEAD WITHOUT AND WITH INTRAVENOUS CONTRAST CLINICAL INDICATION: Headache, unspecified TECHNIQUE: Multiple axial images were obtained of the head without and with intravenous contrast. This CT exam was performed using one or more of the following dose reduction techniques: automated exposure control, adjustment of the mA and/or kV according to patient size, and/or use of iterative reconstruction technique. CONTRAST: IV 50mL [id number]-370 RADIATION DOSE: CTDIvol = 44.99 x2 mGy, DLP = 1648.46 mGy-cm COMPARISON: No relevant prior studies available. FINDINGS: BRAIN AND EXTRA-AXIAL SPACES: Unremarkable. No intra- or extra-axial hemorrhage. No evidence of acute infarct. No intracranial mass or mass effect. There is preservation of the adbi/white matter interface. Posterior fossa structures are unremarkable. Ventricles are appropriate for age. No hydrocephalus. Basal cisterns are patent. There is enhancement of the deep veins and dural venous sinuses. No suspicious enhancement. Major intracranial vessels are patent. BONES/JOINTS: Unremarkable. No discrete lytic or blastic abnormalities. SINUSES: Unremarkable as visualized. Clear. MASTOID AIR CELLS: Unremarkable. Clear. ORBITS: Visualized globes, extraocular muscles, optic nerves and retrobulbar fat appear unremarkable. CT/Brain/Head W/WO Contrast IMPRESSION: Negative head/brain CT without and with intravenous contrast. Electronically Signed: Leslie Donaldson MD at 5:27 EDT ,
[2024-02-20 17:22] LABS: CREATININE FINGERSTICK < 1.0 mg/dL (0.55-1.02); EGFR FINGERSTICK > 60.0000 mL/min (>60)
== END | disposition home or self-care (01) ==
LOC: CT 16:40
PROVIDERS: PCP Family Medicine; Referring Provider Family Medicine; Visit Provider Family Medicine
DX: R51.9 Headache, unspecified (principal); G35 Multiple sclerosis
CPT/HCPCS: 70470; Q9967

== ENCOUNTER → 2024-04-20 | Outpatient (CLI) | payer MEDICARE, SELFPAY ==
[2024-04-20 15:17] LABS: Hematocrit 42.2 % (37-47); Hemoglobin 13.4 g/dL (12.0-15.0); Mean Corp Hgb Conc 31.8 g/dL (32-36); Mean Corpuscular Hgb 30.7 pg (27.0-32.0); Mean Corpuscular Volume 96.6 fL (81-99); Mean Platelet Vol. 10.1 fl (6.2-12.0); Platelet Count 251 K/mm3 (150-450); RBC Distribution Width CV 12.8 % (11.6-14.6); RBC Distribution Width SD 45.8 fl (35.1-43.9); Red Blood Count 4.37 M/mm3 (4.2-5.4); White Blood Count 6.8 K/mm3 (4.4-11.0)
[2024-04-20 16:02] LABS: Ferritin 522 ng/mL (8-252); Iron 45 ug/dL (50-170); Iron Binding Capacity,Total 280 ug/dL (250-450); PERCENT IRON SATURATION 16.1 % (15.0-55.0)
== END | disposition home or self-care (01) ==
LOC: MTLAB 13:10
PROVIDERS: PCP Family Medicine; Referring Provider Family Medicine; Visit Provider Family Medicine
DX: E61.1 Iron deficiency (principal); E03.9 Hypothyroidism, unspecified
CPT/HCPCS: 36415; 82728; 83540; 83550; 84443; 85027

== ENCOUNTER → 2024-07-23 | Outpatient (CLI) | payer MEDICARE, SELFPAY ==
[2024-07-23 17:32] LABS: Erythrocyte Sedimentation Rate 1 mm/hr (0-30)
[2024-07-23 18:01] LABS: Vitamin B12 516 pg/mL (211-911)
[2024-07-23 18:38] LABS: Ferritin 452 ng/mL (8-252); Magnesium 2.1 mg/dL (1.6-2.6)
[2024-07-27 14:07] LABS: Albumin 3.5 g/dL (2.9-4.4); Alpha-1-Globulins 0.2 g/dL (0.0-0.4); Alpha-2-Globulins 0.7 g/dL (0.4-1.0); Gamma Globulin 0.8 g/dL (0.4-1.8); Immunoglobulin A 169 mg/dL (87-352); Immunoglobulin G 789 mg/dL (586-1602); Immunoglobulin M 104 mg/dL (26-217); PROEL- TOTAL PROTEIN 6.3 g/dL (6.0-8.5)
== END | disposition home or self-care (01) ==
LOC: LAB 16:27
PROVIDERS: PCP Family Medicine; Referring Provider Internal Medicine Gastroenterology; Visit Provider Internal Medicine Gastroenterology
DX: E27.3 Drug-induced adrenocortical insufficiency (principal); T38.0X5A Adverse effect of glucocorticoids and synthetic analogues, initial encounter; D64.9 Anemia, unspecified
CPT/HCPCS: 36415; 82533; 82607; 82728; 82746; 82784; 83735; 84165; 85652; 86334

== ENCOUNTER → 2024-10-22 | Outpatient (CLI) | payer MEDICARE, SELFPAY ==
[2024-10-22 18:17] LABS: CORTISOL AM 8.55 ug/dL (6.02-18.40); CPK Total, Creatine Kinase 65 U/L (24-195); Follicle Stimulating Hormone 83.7 mIU/mL; Free T3 2.9 pg/mL (2.18-3.98)
[2024-10-24 07:06] LABS: PROGESTERONE 0.1 ng/mL (.)
== END | disposition home or self-care (01) ==
LOC: MTLAB 15:31
PROVIDERS: PCP Family Medicine; Referring Provider Internal Medicine Gastroenterology; Visit Provider Internal Medicine Gastroenterology
DX: E27.3 Drug-induced adrenocortical insufficiency (principal); T38.0X5A Adverse effect of glucocorticoids and synthetic analogues, initial encounter; E03.9 Hypothyroidism, unspecified
CPT/HCPCS: 36415; 82024; 82085; 82088; 82384; 82533; 82550; 82672; 83001; 83002; 84144; 84146; 84244; 84402; 84403; 84439; 84443; 84481

== ENCOUNTER → 2024-12-23 | Outpatient (CLI) | payer MEDICARE, SELFPAY ==
[2024-12-23 16:36] LABS: Ferritin 771 ng/mL (22-378)
[2024-12-23 16:37] LABS: CRP < 3.00 mg/L (0.0-3.0)
[2024-12-23 18:22] LABS: Erythrocyte Sedimentation Rate 2 mm/hr (0-30)
== END | disposition home or self-care (01) ==
LOC: LAB 14:52
PROVIDERS: PCP Family Medicine; Referring Provider Internal Medicine Gastroenterology; Visit Provider Internal Medicine Gastroenterology
DX: K51.018 Ulcerative (chronic) pancolitis with other complication (principal)
CPT/HCPCS: 36415; 82728; 85652; 86140

== ENCOUNTER → 2025-01-13 | Outpatient (CLI) | payer MEDICARE, SELFPAY ==
[2025-01-13 13:46] LABS: Ferritin 645 ng/mL (22-378)
[2025-01-13 15:41] LABS: Iron 70 ug/dL (50-170); Iron Binding Capacity,Unsat 147 ug/dL (228-428)
[2025-01-13 16:04] LABS: Iron Binding Capacity,Total 217 ug/dL (250-450)
[2025-01-14 02:11] LABS: Absolute Lymphocyte Count 2.24 X10^3/uL (0.83-4.51); Absolute Neutrophil Count 2.7 X10^3/uL (2.0-7.7); Basophil# 0.08 X10^3/uL; Basophil% 1.5 % (0-1); Eosinophil# 0.09 X10^3/uL; Eosinophils% 1.6 % (0-5); Hematocrit 41.1 % (37-47); Hemoglobin 13.4 g/dL (12.0-15.0); Lymphocyte # 2.24 X10^3/ul (0.83-4.51); Lymphocyte % 40.7 % (19-41); Mean Corp Hgb Conc 32.6 g/dL (32-36); Mean Corpuscular Hgb 30.3 pg (27.0-32.0); Monocyte# 0.35 X10^3/uL; Monocyte% 6.4 % (0-10); NRBC Flagged by Analyzer 0 % (0-5); Neutrophil # 2.73 X10^3/uL (2.7-7.7); Neutrophil % 49.6 % (47-70); Platelet Count 208 K/mm3 (150-450); RBC Distribution Width CV 13.3 % (11.6-14.6); RBC Distribution Width SD 45.8 fl (35.1-43.9); Red Blood Count 4.42 M/mm3 (4.2-5.4); White Blood Count 5.5 K/mm3 (4.4-11.0)
== END | disposition home or self-care (01) ==
LOC: MTLAB 11:10
PROVIDERS: PCP Family Medicine; Referring Provider Internal Medicine Gastroenterology; Visit Provider Internal Medicine Gastroenterology
DX: R79.89 Other specified abnormal findings of blood chemistry (principal); R89.9 Unspecified abnormal finding in specimens from other organs, systems and tissues
CPT/HCPCS: 36415; 82728; 83540; 83550; 85025

== ENCOUNTER → 2025-02-07 | Outpatient (CLI) | payer MEDICARE, SELFPAY ==
--- NOTE | 2025-02-07 14:47 | BI_ITS ---
EXAM: SCRN MAMM (CAD)W/SUNNY BILAT DATE: 02/07/2025 CLINICAL HISTORY: F, Age 65 y/o , SCREENING FOR BREAST CANCER TECHNIQUE: SCRN MAMM (CAD)W/SUNNY BILAT COMPARISON: Prior exam(s) dated 02/06/2024 and 02/04/2023. FINDINGS: TISSUE DENSITY: There are scattered areas of fibroglandular density. Bilateral Breast Mammographic Findings: No suspicious masses, suspicious clustered microcalcifications, architectural distortion or secondary sign of malignancy is identified in either breast. Benign-appearing macrocalcifications and round microcalcifications are seen in both breast. A stable 6 mm, well-circumscribed, isodense mass is seen in the superior outer, far posterior aspect of the right breast. This mass has a fatty hilum and is most compatible with an intramammary lymph node. A radiopaque clip is seen in the superior, middle 3rd aspect of the left breast. The biopsy was benign. Post biopsy site is stable. BI/SCRN MAMM (CAD)W/SUNNY BILAT IMPRESSION: Benign screening mammogram. OVERALL FINAL ASSESSMENT BI-RADS 2: BENIGN RECOMMENDATION: Routine annual follow-up in 1 Year A letter with findings and recommendations will be mailed to the patient. Reading Location: [id number]
== END | disposition home or self-care (01) ==
PROVIDERS: PCP Family Medicine
DX: Z12.31 Encounter for screening mammogram for malignant neoplasm of breast (principal)
CPT/HCPCS: 77063; 77067

== ENCOUNTER 2025-02-15 17:00 | Outpatient (RCR) | payer MEDICARE, SELFPAY ==
--- NOTE | 2025-02-02 11:40 | HP.PTEVAL ---
Patient's Visit Information Visit Information Visit Information: CHANEL PRASAD is a 64 year old F referred to Physical Therapy by SANDRA Glasgow with a diagnosis of BPPV. Date of Evaluation: 02/02/25 Physical Therapist: Marito Blanco, BELT, OCS, CSCS Visit Plan Frequency: 1x/Week Duration: 4-6 Weeks Plan: weekly x 3-6 weeks for porgression of VOR, head movement recalibration ex. IE HEP: VOR stand ft 60 sec 6x/day and education on likely condition adn altrnative possible diagnoses Will f/u 1.5 weeks due to next week being busy and call if problems. Subjective Subjective: I got the vertigo. Had sinus infection bacterial viral in the spring and at . Ears have been off for a while. Vertigo started about 3 weeks ago. Described as off balance. FriJanuary 20 on a boat and wokee up worse. No spinning ever. Feels like she is swaying. It is intermittent now but has colitis and MS and struggles with that sometimes. Walking is swayy. No falls. No AD needed. No neuropathy. Goofyness is intermittent but worse with looking down and hard to concentrate. Sleep is not bad but havier and propping self up. Afraid to lie flat b/c it was worse on the boat. Employed: disability, colitis. Acitvity: limits her in moving fast, likes to stay active and that is harder. Avoids going out due to not knowing when it will get worse. Drives very little. No regualr exercises. Objective Objective: Walks into PT I, chair and bed trasnfer I without symptoms, steps reciprocally without rail. VOR walking is good with slight feeling off for a few seconds. UE and cervical aROM WFL adn strngth 4/5, sensation WFL in B UE. Positional: - HD B and - roll test. Oculomotor: no nystagmus with gaze or head shake - skew ye deviaiton - ocular tilt - head thrust + DVA 5 jabier wors than SVA pursuit and saccades are normal and asymptomatic. VOR H 30 seconds is mild for 15 second symptoms. Overall no BPPV, likely combined with subjctive is unilateral vestib hypofunction. Balance/Special Test Scores Functional Gait Assessment Score: 30 % Disability: 0 CATSIB Score (Max score 120 seconds): 120 Dizziness Score: 52 Goals Goal 1:: Pt feel 99% back to normal with dizzy sensation and activity Goal Time Frame: 4-6 Weeks Goal 2:: Able to go out to eat and social without hesitancy. Goal Time Frame: 4-6 Weeks Goal 3:: DHI score 10 or less. Goal Time Frame: 4-6 Weeks Goal 4:: I appropriate ex to manage condition Goal Time Frame: 4-6 Weeks Goal 5:: Lie flat in bed without hesitation Goal Time Frame: 4-6 Weeks Rehabilitation Potential Physical Therapy Diagnosis: goofy feling in R ar and had with head movements, focus, limiting function. Rehabilitation Potential: Good Anticipated Interventions Patient/Client Instruction: Educate patient on: Condition and Plan of Care For the Purpose of:: To increase tolerance to activity/condition/position Comment: VOR adpatation, head movement For the Purpose of:: To increase tolerance to activity/condition/position Text: Thank you for the opportunity to evaluate your patient. For Medicare and Medicare HMO plans, please review the plan of care and approve it. It will need to be FAXED BACK to us at [phone] for Medicare purposes. For Medicare only, by signing this I certify the plan of care. Please let me know if there are questions or concerns regarding this plan of care. Physician Signature: Date:
--- NOTE | 2025-02-15 17:17 | HP.PTDCSUM ---
Discharge Summary D/C summary: It has been my pleasure to treat CHANEL PRASAD referred by SANDRA Glasgow, with the diagnosis of BPPV for a total of 2 visit(s). Discharge Date: 02/15/25 Please see the following information for a summary of their discharge status. Subjective Subjective: I did good. Still feels sway at times. Happens with too much movement like in ex. Not happening much else. Activities are back to normal. Lots of activities taking care of kids. [place] normal for the last week or so. 96% better. Overall Improvement % Improvement: 96 Objective Objective/Function: VOR H and V and walking in busy environment without LOB or symptoms. Bend and recover easily. Overall 96% better subjectively adn ready to be done with PT. It really helpd. Goals Goal 1:: Pt feel 99% back to normal with dizzy sensation and activity Goal Progress: 96% Goal 2:: Able to go out to eat and social without hesitancy. Goal Progress: Goal Met Goal 3:: DHI score 10 or less. Goal Progress: Goal Met Goal 4:: I appropriate ex to manage condition Goal Progress: Goal Met Goal 5:: Lie flat in bed without hesitation Goal Progress: Goal Met Plan Plan: d/c D/C Information d/c sentence: If there are questions or concerns regarding this patient's physical therapy, please feel free to call me at [phone]. Thank you for the referral of this patient. Sincerely, Marito Blanco, DPT, OCS, CSCS Balance/Gait/Functional tests Balance/Special Test Scores Functional Gait Assessment Score: 30 % Disability: 0 CATSIB Score (Max score 120 seconds): 120 Dizziness Score: 0 Improvement % Improvement: 96
== END 2025-02-15 19:00 | disposition home or self-care (01) ==
LOC: PT 17:00
PROVIDERS: PCP Family Medicine; Referring Provider Nurse Practitioner Family; Visit Provider Nurse Practitioner Family
DX: H81.10 Benign paroxysmal vertigo, unspecified ear (principal)
CPT/HCPCS: 97161; 97530

== ENCOUNTER → 2025-03-28 | Outpatient (CLI) | payer MEDICARE, SELFPAY ==
[2025-03-28 15:00] LABS: Hematocrit 42.5 % (37-47); Hemoglobin 14.1 g/dL (12.0-15.0); Immature Granulocytes Count 0.010 X10^3/uL (0.0-0.0); Mean Corp Hgb Conc 33.2 g/dL (32-36); Mean Corpuscular Volume 93.4 fL (81-99); Mean Platelet Vol. 9.8 fl (6.2-12.0); NRBC Flagged by Analyzer 0 % (0-5); Platelet Count 245 K/mm3 (150-450); RBC Distribution Width CV 13.0 % (11.6-14.6); RBC Distribution Width SD 44.3 fl (35.1-43.9); Red Blood Count 4.55 M/mm3 (4.2-5.4); White Blood Count 5.7 K/mm3 (4.4-11.0)
[2025-03-28 16:00] LABS: Ferritin 575 ng/mL (22-378); Iron 49 ug/dL (50-170)
--- OUTSIDE RECORDS SUMMARY | 2025-03-28 21:37 | XMS RPT_ITS | CCD ---
Author Organization [facility] Care Team Providers Care Vegetable Tester Name Role Phone Unavailable Primary Care Provider Sivlio Zavala MD, Alix Cotton Primary Care Provider Dr. Alix Zavala Primary Care Provider Cheuvalaina MOLECULAR PATHOLOGIST, MOLECULAR PATHOLOGIST-C Amber Attending Provider Beth MOLECULAR PATHOLOGIST, MOLECULAR PATHOLOGIST-C Amber Referring Provider Dr. Dustin Manzo Attending Provider Dr. Dustin Manzo Referring Provider Dr. Alix Zavala Referring Provider Dr. Asmita Cespedes Attending Provider Dr. Alix Zavala Referring Provider Dr. Asmita Cespedes Other Provider Dr. Alix Zavala Primary Care Provider Dr. Willy Ponce Attending Provider Dr. Alix Zavala Primary Care Provider Dr. Dustin Manzo Attending Provider Dr. Dustin Manzo Referring Provider Lucas BLACKWELL, Alix Cotton Primary Care Provider Dr. Alix Zavala Primary Care Provider Dr. Asmita Cespedes Attending Provider Dr. Alix Zavala Referring Provider Dr. Dustin Manzo Attending Provider Dr. Dustin Manzo Referring Provider Dr. Willy Ponce Primary Care Provider Friend, Dr. Mckeon Attending Provider Dr. Griselda Goodson Emergency Provider Dr. Hugh Colon Admit Provider Dr. Hugh Colon Attending Provider Dr. Hugh Colon Other Provider Dr. Alix Zavala Primary Care Provider Alix Zavala MD Primary Care Provider Dr. Alix Zavala Primary Care Provider Dr. Dustin Manzo Attending Provider Dr. Dustin Manzo Referring Provider Dr. Alix Zavala Referring Provider [phone] Dr. Kane Lemos Attending Provider Dr. Mason Bustos Referring Provider Dr. Dustin Manzo Attending Provider Dr. Dustin Manzo Referring Provider DELFINA RODRIGUE Referring Unavailable DESMOND MATHISHEN Attending Unavailable ZAVALA, ALIX ELIAS Primary Care Unavailable ZAVALA, ALIX ELIAS Primary Care Unavailable KYRAHNER, JOSE MANUEL A Referring Unavailable DELFINA, RODRIGUE Referring Unavailable DELFINA RODRIGUE Attending Unavailable ZAVALA, ALIX ELIAS Primary Care Unavailable LASHNER, JOSE MANUEL A Referring Unavailable ZAVALA, ALIX ELIAS Primary Care Unavailable ZAVALA, ALIX ELIAS Primary Care Unavailable DANIELA, ISELA Referring Unavailable ZAVALA, ALIX ELIAS Primary Care Unavailable LASHNER, JOSE MANUEL A Referring Unavailable LASHNER, JOSE MANUEL A Referring Unavailable ZAVALA, ALIX ELIAS Primary Care Unavailable DANIELA, ISELA Attending Unavailable ZAVALA, ALIX ELIAS Primary Care Unavailable LASHNER, JOSE MANUEL A Referring Unavailable DANIELA, ISELA Attending Unavailable ZAVALA, ALIX ELIAS Primary Care Unavailable LASHNER, JOSE MANUEL A Referring Unavailable DELFINA, RODRIGUE Referring Unavailable DELFINA, RODRIGUE Attending Unavailable ZAVALA, ALIX ELIAS Primary Care Unavailable ZAVALA, ALIX ELIAS Primary Care Unavailable KENDALL DEMARCO Attending Unavailable ZAVALA, ALIX ELIAS Primary Care Unavailable DELFINA, RODRIGUE Referring Unavailable DELFINA, RODRIGUE Attending Unavailable ZAVALA, ALIX ELIAS Primary Care Unavailable JOSE MANUEL BELL A Referring Unavailable ZAVALA, ALIX ELIAS Primary Care Unavailable DELFINA, RODRIGUE Referring Unavailable DELFINA, RODRIGUE Attending Unavailable ZAVALA, ALIX ELIAS Primary Care Unavailable DELFINA, RODRGIUE Referring Unavailable DELFINA, RODRIGUE Attending Unavailable ZAVALA, ALIX ELIAS Primary Care Unavailable DELFINA, RODRIGUE Attending Unavailable DELFINA, RODRIGUE Referring Unavailable ZAVALA, ALIX ELIAS Primary Care Unavailable DELFINA, RODRIGUE Referring Unavailable KENDALL DEMARCO Attending Unavailable ZAVALA, ALIX ELIAS Primary Care Unavailable DELFINA, RODRIGUE Referring Unavailable DELFINA, RODRIGUE Attending Unavailable ZAVALA, ALIX ELIAS Primary Care Unavailable DELFINA, RODRIGUE Attending Unavailable DELFINA, RODRIGUE Referring Unavailable ZAVALA, ALIX ELIAS Primary Care Unavailable JOSE MANUEL BELL Attending Unavailable DELFINA, RODRIGUE Attending Unavailable ZAVALA, ALIX ELIAS Primary Care Unavailable ZAVALA, ALIX ELIAS Primary Care Unavailable KENDALL DEMARCO Attending Unavailable ZAVALA, ALIX ELIAS Primary Care Unavailable DELFINA, RODRIGUE Referring Unavailable DELFINA RODRIGUE Attending Unavailable ZAVALA, ALIX ELIAS Primary Care Unavailable JOSE MANUEL BELL A Referring Unavailable ZAVALA, ALIX ELIAS Primary Care Unavailable DELFINA, RODRIGUE Attending Unavailable DELFINA, RODRIGUE Referring Unavailable ZAVALA, ALIX ELIAS Primary Care Unavailable ZAVALA, ALIX ELIAS Primary Care Unavailable KENDALL DEMARCO Attending Unavailable JOSE MANUEL BELL Attending Unavailable ZAVALA, ALIX ELIAS Primary Care Unavailable ZAVALA, ALIX ELIAS Primary Care Unavailable DANIELA, ISELA Referring Unavailable ZAVALA, AILX ELIAS Primary Care Unavailable DELFINA, RODRIGUE Attending Unavailable DELFINA, RODRIGUE Referring Unavailable ZAVALA, ALIX ELIAS Primary Care Unavailable JOSE MANUEL BELL Attending Unavailable ZAVALA, ALIX ELIAS Primary Care Unavailable DANIELA, ISELA Referring Unavailable DELFINA, RODRIGUE Referring Unavailable ZAVALA, ALIX ELIAS Primary Care Unavailable DELFINA, RODRIGUE Attending Unavailable Dr. Alix Zavala Referring Provider [phone] Dustin Manzo Attending Provider Dr. Willy Ponce Primary Care Provider Friend, Dr. Mckeon Attending Provider Dr. Griselda Goodson Emergency Provider Dr. Hugh Colon Admit Provider Dr. Hugh Colon Attending Provider Dr. Hugh Colon Other Provider Dr. Kane Lemos Attending Provider Dr. aMson Bustos Referring Provider Dr. Dustin Manzo Referring Provider Dr. Willy Ponce Attending Provider Alix Zavala MD Primary Care Provider Baddour, Dustin Attending Unavailable Baddour, Dustin Referring Unavailable Friend, Mike Attending Unavailable Gina Rosen Referring Unavailable Lloyd, Chalon Primary Care Unavailable Baddour, Dustin Attending Unavailable Baddour, Dustin Referring Unavailable Lloyd, Chalon Primary Care Unavailable Baddour, Dustin Attending Unavailable Baddour, Dustin Referring Unavailable Lloyd, Chalon Primary Care Unavailable Lloyd, Chalon Referring Unavailable Lloyd, Chalon Attending Unavailable Lloyd, Chalon Primary Care Unavailable Friend, Mike Referring Unavailable Friend, Mike Attending Unavailable Lloyd, Chalon Primary Care Unavailable Friend, Mike Referring Unavailable Friend, Mike Attending Unavailable Lloyd, Chalon Primary Care Unavailable Baddour, Dustin Attending Unavailable Baddour, Dustin Referring Unavailable Lloyd, Chalon Primary Care Unavailable Lloyd, Chalon Referring Unavailable Friend, Mike Attending Unavailable Lloyd, Chalon Primary Care Unavailable Lloyd, Chalon Referring Unavailable Baddour, Dustin Attending Unavailable Lloyd, Chalon Primary Care Unavailable Baddour, Dustin Attending Unavailable Baddour, Dustin Referring Unavailable Lloyd, Chalon Primary Care Unavailable Baddour, Dustin Attending Unavailable Bo Rosenistin M Referring Unavailable Baddour, Dustin Attending Unavailable Baddour, Dustin Referring Unavailable Baddour, Dustin Referring Unavailable Baddour, Dustin Attending Unavailable Lloyd, Chalon Primary Care Unavailable Baddour, Dustin Referring Unavailable Baddour, Dustin Attending Unavailable Lloyd, Chalon Primary Care Unavailable Lloyd, Chalon Primary Care Unavailable Baddour, Dustin Attending Unavailable Baddour, Dustin Referring Unavailable Lloyd, Chalon Primary Care Unavailable McMorrow MOLECULAR PATHOLOGIST, Liu Referring Unavailable McMorrow MOLECULAR PATHOLOGIST, Liu Attending Unavailable Lloyd, Chalon Primary Care Unavailable Friend, Mike Attending Unavailable Friend, Mike Referring Unavailable Lloyd, Chalon Primary Care Unavailable Baddour, Dustin Attending Unavailable Baddour, Dustin Referring Unavailable Lloyd, Chalon Primary Care Unavailable Lloyd, Chalon Referring Unavailable Friend, Mike Attending Unavailable Lloyd, Chalon Primary Care Unavailable Friend, Mike Attending Unavailable Friend, Mike Referring Unavailable Lloyd, Chalon Primary Care Unavailable Elian MOLECULAR PATHOLOGIST, Liliana Referring Unavailable Elian MOLECULAR PATHOLOGIST, Liliana Attending Unavailable Lloyd, Chalon Primary Care Unavailable Lloyd, Chalon Referring Unavailable Baddour, Dustin Attending Unavailable Lloyd, Chalon Primary Care Unavailable Baddour, Dustin Attending Unavailable Baddour, Dustin Referring Unavailable Friend, Mike Attending Unavailable Gina Rosen Referring Unavailable Jean ClaudeseDane Attending Unavailable Lloyd, Chalon Primary Care Unavailable Baddour, Dustin Attending Unavailable Baddour, Dustin Referring Unavailable Allergies Allergy Classification Reported Allergen(s) Allergy Type Date of Onset Reaction(s) Facility (20 sources) Acetaminophen / HYDROcodone; Translations: [HYDROCODONE-ACETA MINOPHEN] Drug Allergy 02-18-20 20 GI Upset [facility] (20 sources) ALPRAZolam; Translations: [ALPRAZOLAM] Drug Allergy 02-18-20 20 Other: See Comments [facility] (20 sources) Azithromycin; Translations: [AZITHROMYCIN] Drug Allergy 09-11-19 16 Vomiting [facility] (20 sources) balsalazide; Translations: [BALSALAZIDE] Drug Allergy 03-13-20 20 Intolerance [facility] (20 sources) Budesonide; Translations: [BUDESONIDE] Drug Allergy 03-13-20 20 Intolerance [facility] (20 sources) buPROPion; Translations: [BUPROPION HCL] Drug Allergy 02-18-20 Other: See Comments [facility] (20 sources) Codeine; Translations: [CODEINE] Drug Allergy 09-25-19 05 Other: See Comments [facility] (20 sources) Escitalopram; Translations: [ESCITALOPRAM OXALATE] Drug Allergy 02-18-20 Other: See Comments [facility] (20 sources) Lactobacillus acidophilus; Translations: [LACTOBACILLUS ACIDOPHILUS] Drug Allergy 02-18-20 Unknown [facility] (20 sources) mesalamine; Translations: [MESALAMINE] Drug Allergy 02-18-20 Intolerance [facility] (20 sources) metroNIDAZOLE; Translations: [METRONIDAZOLE] Drug Allergy 02-18-20 Mental Status Change [facility] (16 sources) Penicillins; Translations: [PENICILLINS] Drug Allergy 09-09-19 Itching [facility] (20 sources) Phenazopyridine; Translations: [PHENAZOPYRIDINE] Drug Allergy 02-18-20 GI Upset [facility] (20 sources) Sertraline; Translations: [SERTRALINE] Drug Allergy 02-18-20 Other: See Comments [facility] (20 sources) Sulfonamides (Antibiotic); Translations: [SULFA (SULFONAMIDE ANTIBIOTICS)] Drug Intolerance 02-18-20 Intolerance [facility] (20 sources) Sulfur; Translations: [SULFUR] Drug Allergy 02-18-20 Other: See Comments [facility] (20 sources) Zinc; Translations: [ZINC] Drug Allergy 10-16-19 11 Unknown [facility] Work Phone: (4 sources) Acetaminophen Drug Allergy 11-21-19 Unknown [facility] Work Phone: (10 sources) HYDROcodone Drug Allergy 11-21-19 Unknown, Other [facility] Work Phone: (10 sources) inFLIXimab Drug Allergy 11-21-19 22 'Allergic Reaction', Anaphylaxis [facility] Work Phone: (10 sources) Naproxen Drug Allergy 11-21-19 Other [facility] Work Phone: (10 sources) PROBIOTICS Allergy to substance 11-21-19 Other [facility] Work Phone: (3 sources) predniSONE Drug Allergy 11-23-19 22 locks up muscles [facility] Work Phone: (20 sources) Penicillins Drug Allergy 09-09-19 18 Itching [facility] (6 sources) Dicyclomine Drug Allergy 03-19-20 22 Vomiting [facility] Work Phone: (6 sources) Penicillins Propensity to adverse reactions 03-19-20 22 Itching [facility] Work Phone: (6 sources) Sulfonamides (Antibiotic) Propensity to adverse reactions 03-19-20 22 Vomiting [facility] Work Phone: (6 sources) Vancomycin Drug Allergy 03-19-20 22 Other [facility] Work Phone: (1 source) ALPRAZolam Drug Allergy 12-21-19 25 [facility] Repository (1 source) Azithromycin Drug Allergy 12-21-19 25 [facility] Repository (1 source) balsalazide Drug Allergy 12-21-19 25 [facility] Repository (1 source) Budesonide Drug Allergy 12-21-19 25 [facility] Rep[facility] (1 source) Codeine Drug Allergy 12-21-19 25 [facility] Rep[facility] (1 source) Dicyclomine Drug Allergy 12-21-19 25 [facility] Rep[facility] (1 source) HYDROcodone Drug Allergy 12-21-19 25 [facility] Repository (1 source) inFLIXimab Drug Allergy 12-21-19 25 [facility] Repository (1 source) mesalamine Drug Allergy 12-21-19 25 [facility] Repository (1 source) metroNIDAZOLE Drug Allergy 12-21-19 25 [facility] Repository (1 source) Naproxen Drug Allergy 12-21-19 25 [facility] Repository (1 source) Penicillins Drug allergy (disorder) 12-21-19 25 [facility] Rep[facility] (1 source) Phenazopyridine Drug Allergy 12-21-19 25 [facility] Repository (1 source) Sulfonamides (Antibiotic) Drug allergy (disorder) 12-21-19 25 [facility] Repository (1 source) Vancomycin Drug Allergy 12-21-19 25 [facility] Rep[facility] (1 source) Zinc Drug Allergy 12-21-19 [facility] Repository (1 source) Lactobacillus rhamnosus GG Drug allergy (disorder) 12-21-19 [facility] Repository Medications Current Medications Medication Drug Class(es) Dates Sig (Normalized) Sig (Original) acetaminophen 500 mg oral capsule (20 sources) Start: 06-10-2022 take 500 mg by mouth every eight hours Acetaminophen Active 500 MG PO Q8H June 10, 2022 12:00am Start: 08-15-2020 take 2 tablets by mo uth every four hours as needed acetaminophen (TYLENOL) 325 mg tablet Take 2 tablets by mouth every 4 hours as needed (for pain.). 2 tablet 5 08/15/2020 Active Start: 12-04-2018 End: 03-30-2019 take 650 mg by mouth every six hours as needed Acetaminophen Discontinued 650 MG PO EVERY 6 HOURS NEEDED December 03, 2018 11:00pm March 30, 2019 1:37pm Comment on above: Take 2 tablets by mo ut every 4 hours as needed (for pain.). cholecalciferol 1.25 mg oral capsule (20 sources) Vitamin D Start: take 1250 ug by mouth every week Cholecalciferol (Vitamin D3) Active 1250 MCG PO EVERY WEEK 4 April 25, 2022 11:00pm Start: 12-11-2020 End: 06-18-2021 take 1250 ug by mouth every week Cholecalciferol (Vitamin D3) Discontinued 1250 MCG PO EVERY WEEK February 13, 2021 2:08pm June 18, 2021 8:45pm Start: 12-11-2020 End: 12-11-2020 take 4000 [IU] by mouth once daily Cholecalciferol (Vitamin D3) Discontinued 4000 UNIT PO DAILY December 10, 2020 11:00pm December 11, 2020 8:35pm Start: 02-04-2020 End: 12-06-2021 take 1 tablet by mouth once daily cholecalciferol (VITAMIN D3) 50 mcg (2,000 unit) tablet Take 1 tablet by mouth once daily. 0 02/04/2020 12/06/2021 Discontinued Comment on above: Take 1 tablet by bronwyn once daily. dicyclomine hydrochloride 20 mg oral tablet (20 sources) Anticholinergic Start: 02-21-20 End: 11-24-20 22 take 1 tablet by mouth at bedtime dicyclomine (BENTYL) 20 mg tablet take 1 tablet by mouth before meals and at bedtime 120 tablet 2 03/15/2022 06/13/2022 Active Start: 12-11-2020 End: 11-15-2021 take 1 capsule by mouth every eight hours at bedtime for muscle spasms Dicyclomine Discontinued 10 MG PO .COMPLEX December 10, 2020 11:00pm November 15, 2021 12:39pm 10 mg PO;take 1 capsule by mouth at bedtime or every 8 hours if needed for BOWEL SPASMS Start: 11-29-2018 End: 12-03-2018 take 20 mg by mouth three times daily before mealtime Dicyclomine Discontinued 20 MG PO THREE TIMES DAILY BEFORE MEALS November 30, 2018 6:41pm December 03, 2018 3:03pm Comment on above: Take 1 tablet by bronwyn th before meals and at bedtime. take 1 tablet by bronwyn th before meals and at bedtime enteric contrast (will be provided with radiology test) (1 source) Start: 03-01-2022 End: 03-02-2022 enteric contrast (will be provided with radiology test) Indications: Inflammatory bowel disease For CT ENTEROGRAPHY W IVCON order Administer, As Directed One Time Only, via Oral, Rectal, both Oral and Rectal, Enteric Tube, Stoma or Indwelling Catheter, Enteric Contrast as designated per enteric contrast guidelines. 1 Each 0 03/01/2022 03/02/2022 Active Comment on above: For CT ENTEROGRAPHY W IVCON order Administer, As Directed One Time Only, via Oral, Rectal, both Oral and Rectal, Enteric Tube, Stoma or Indwelling Catheter, Enteric Contrast as designated per enteric contrast guidelines. fluconazole 150 mg oral tablet (15 sources) Azole Antifungal Start: 05-06-2022 Fluconazole Active 150 MG PO Q3D 2 May 06, 2022 2:19pm Start: 04-04-2022 End: 04-23-2022 Fluconazole Discontinued 150 MG PO Q3D 2 April 03, 2022 11:00pm April 23, 2022 9:19am Start: 12-04-2018 End: 12-08-2018 take 100 mg by mouth once Fluconazole Discontinued 100 MG PO ONE TIME 1 December 03, 2018 11:00pm December 08, 2018 2:37pm hydrocortisone acetate 25 mg rectal suppository (14 sources) Corticosteroid Start: 02-20-2022 End: 03-22-2022 hydrocortisone (ANUSOL-HC) 25 mg suppository 1 Suppository by RECTAL route twice daily. 60 Each 0 02/20/2022 03/22/2022 Active Start: 03-15-2020 End: 12-06-2021 hydrocortisone (COLOCORT) 10 0 mg/60 mL enema Use rectally as directed 30 Bottle 1 03/15/2020 12/06/2021 Discontinued Comment on above: Use rectally as dire cted 1 Suppository by REC LISBETH route twice daily. iv contrast (will be provided with radiology test) (1 source) Start: 03-01-20 End: 03-02-20 iv contrast (will be provided with radiology test) Indications: Inflammatory bowel disease CT Enterography W Inject, intravenously, once for 1 dose.No IV access, insert saline lock prior to the beginning of sedation, infusion, injection of imaging exam. Discontinue saline lock post exam. If Pt. has a central line or IVAD, may access for administration according to line specific nursing protocol. Once exam is complete flush line and de-access according to line specific nursing protocol in the CT contrast administration guidelines link. 1 Each 0 03/01/2022 03/02/2022 Active Comment on above: CT Enterography W In ject, intravenously, once for 1 dose.No IV access, insert saline lock prior to the beginning of sedation, infusion, injection of imaging exam. Discontinue saline lock post exam. If Pt. has a central line or IVAD, may access for administration according to line specific nursing protocol. Once exam is complete flush line and de-access according to line specific nursing protocol in the CT contrast administration guidelines link. levothyroxine sodium 0.025 mg oral tablet (20 sources) l-Thyroxine Start: 06-10-20 take 25 ug by mouth once daily Levothyroxine Active 25 MCG PO DAILY June 10, 2022 2:05pm Start: 04-25-2022 End: 06-10-2022 take 37.5 ug by mouth once daily Levothyroxine Discontinued 37.5 MCG PO DAILY April 24, 2022 11:00pm June 10, 2022 2:06pm Start: 11-30-2018 End: 04-25-2022 take 1 tablet by mouth once daily levothyroxine (SYNTHROID) 50 mcg tablet Take 50 mcg by mouth once daily. 0 02/02/2020 Active Comment on above: Take 50 mcg by mouth once daily. mesalamine 1000 mg rectal suppository (2 sources) Aminosalicylate Start: 02-21-20 End: 02-21-20 mesalamine (CANASA) 1,000 mg suppository Indications: Ulcerative pancolitis with rectal bleeding (HCC) 1 Suppository by RECTAL route daily at bedtime. Patient's e-mail is [email or web address] NCP[employer] ID #[id number] 30 Each 0 02/20/2022 02/20/2022 Discontinued Comment on above: 1 Suppository by REC LISBETH route daily at bedtime. Patient's e- mail is [email or web address] N[employer] ID #[id number] nystatin 100 unt/mg / triamcinolone acetonide 0.001 mg/mg topical ointment (2 sources) Polyene Antifungal, Corticosteroid Start: 05-31-20 End: 06-07-20 nystatin-triamcinol one (MYCOLOG) ointment Apply sparingly to perineum twice daily for irritation/infectio n. 30 g 0 05/31/2022 06/07/2022 Active Comment on above: Apply sparingly to p erineum twice daily for irritation/infection. ondansetron 4 mg oral tablet (15 sources) Serotonin-3 Receptor Antagonist Start: 03-08-20 End: 04-07-20 take 1 tablet by mouth every eight hours as needed for nausea ondansetron (ZOFRAN) 4 mg tablet Indications: Ulcerative pancolitis with rectal bleeding (HCC) Take 1 tablet by mouth every 8 hours as needed for nausea/vomiting (for nausea.). 90 tablet 0 03/08/2022 04/07/2022 Active Start: 12-05-2018 End: 03-30-2019 take 4 mg by mouth every eight hours as needed Ondansetron Discontinued 4 MG PO EVERY 8 HOURS NEEDED December 04, 2018 11:00pm March 30, 2019 1:37pm Comment on above: Take 1 tablet by bronwyn every 8 hours as needed for nausea/vomiting (for nausea.). prochlorperazine 25 mg rectal suppository (3 sources) Phenothiazine Start: 2021 Prochlorperazine (Compazine) 25 mg suppository Active 25 MG RC TWICE A DAY March 26, 2022 11:00pm simethicone 125 mg chewable tablet (10 sources) Start: 2021 End: 2021 take 1 tablet by mouth every six hours as needed Simethicone 125 mg chewable tablet Take 1 tablet by mouth every 6 hours as needed. 120 tablet 0 02/20/2022 03/22/2022 Active Comment on above: Take 1 tablet by bronwyn th every 6 hours as needed. 1 ml ustekinumab 90 mg/ml prefilled syringe (20 sources) Interleukin-12 Antagonist, Interleukin-23 Antagonist Start: 2021 End: 2021 Start: 02-20-2022 End: 02-21-2022 Ustekinumab (Stelara) 90 mg/ mL syringe Active MG SC June 10, 2022 12:00am Start: 02-20-2022 End: 02-21-2022 inject 78 mL intravenously once ustekinumab (STELARA) 130 mg/26 mL injection Inject 78 mL intravenously one time only for 1 dose. 78 mL 0 02/21/2022 Active Comment on above: Inject 78 mL intrave nously one time only for 1 dose. Inject 1 mL subcutan eously every 8 weeks. valACYclovir 500 mg oral tablet (20 sources) Herpesvirus Nucleoside Analog DNA Polymerase Inhibitor, Herpes Simplex Virus Nucleoside Analog DNA Polymerase Inhibitor, Herpes Zoster Virus Nucleoside Analog DNA Polymerase Inhibitor Start: 11-23-19 take 1 tablet by mouth once daily Valacyclovir (Valtrex) 500 mg tablet Active 500 MG PO DAILY November 21, 2021 11:00pm take 1000 mg by mouth once daily valACYclovir (VALTREX) 1 gram Take 1,000 mg by mouth once daily. 7 days 0 Active Comment on above: Take 1,000 mg by bronwyn th once daily. 7 days vitamin b12 1 mg/ml injectable solution (20 sources) Vitamin B12 Start: 11-23-19 inject 100 ug by intramuscular injection every month Cyanocobalamin (Vitamin B-12) Active 100 MCG IM EVERY MONTH November 21, 2021 11:00pm WAS SUPPOSED TO HAVE THIS PAST FRIDAY Start: 11-15-2021 End: 11-15-2021 inject 100 ug by intramuscular injection once cyanocobalamin (vitamin B-12) 1,000 mcg/mL injection solution Discontinued 100 MCG IM ONCE November 15, 2021 1:24pm November 15, 2021 2:30pm Start: 10-08-2021 End: 10-08-2021 inject 1000 ug by intramuscular injection once cyanocobalamin (vitamin B-12) 1,000 mcg/mL injection solution Discontinued 1000 MCG IM ONCE October 08, 2021 1:15pm October 08, 2021 2:03pm Start: 09-03-2021 End: 09-03-2021 inject 1000 ug by intramuscular injection once cyanocobalamin (vitamin B-12) 1,000 mcg/mL injection solution Discontinued 1000 MCG IM ONCE September 03, 2021 2:06pm September 03, 2021 2:26pm Start: 08-02-2021 End: 08-02-2021 inject 1000 ug by intramuscular injection once cyanocobalamin (vitamin B-12) 1,000 mcg/mL injection solution Discontinued 1000 MCG IM ONCE August 02, 2021 10:03am August 02, 2021 11:41am Start: 06-18-2021 End: 06-18-2021 inject 1000 ug by intramuscular injection once cyanocobalamin (vitamin B-12) 1,000 mcg/mL injection solution Discontinued 1000 MCG IM ONCE June 18, 2021 4:33pm June 18, 2021 4:33pm Start: 05-14-2021 End: 05-14-2021 inject 1000 ug by intramuscular injection once cyanocobalamin (vitamin B-12) 1,000 mcg/mL injection solution Discontinued 1000 MCG IM ONCE May 14, 2021 1:00pm May 14, 2021 1:02pm Start: 03-13-2021 End: 03-13-2021 inject 1000 ug by intramuscular injection once cyanocobalamin (vitamin B-12) 1,000 mcg/mL injection solution Discontinued 1000 MCG IM ONCE March 13, 2021 1:13pm March 13, 2021 1:50pm Start: 02-13-2021 End: 02-13-2021 inject 1000 ug by intramuscular injection once cyanocobalamin (vitamin B-12) 1,000 mcg/mL injection solution Discontinued 1000 MCG IM ONCE 1 February 13, 2021 2:20pm February 13, 2021 3:37pm Start: 01-11-2021 End: 01-11-2021 inject 1000 ug by intramuscular injection once cyanocobalamin (vitamin B-12) 1,000 mcg/mL injection solution Discontinued 1000 MCG IM ONCE January 11, 2021 9:58am January 11, 2021 3:48pm Start: 12-11-2020 End: 12-11-2020 inject 1000 ug by intramuscular injection once cyanocobalamin (vitamin B-12) 1,000 mcg/mL injection solution Discontinued 1000 MCG IM ONCE December 11, 2020 10:51am December 11, 2020 5:06pm Completed/Discontinued Medications Medication Drug Class(es) Dates Sig (Normalized) Sig (Original) acetaminophen 325 mg / HYDROcodone bitartrate 5 mg oral tablet (10 sources) Opioid Agonist Start: 10-19-2018 End: 10-22-2018 take 1 tablet by mouth every four hours as needed Hydrocodone-Acetamino phen Discontinued 1 TABLET PO EVERY 4 HOURS NEEDED 12 3 October 18, 2018 11:00pm October 21, 2018 11:07pm amylase 17568 unt / lipase 36878 unt / protease 22777 unt delayed release oral capsule (3 sources) Start: 04-19-2022 End: 04-23-2022 take [id number] capsules by mouth three times daily at mealtime Waolgd-Nongqqby-Qpoxn se (Creon) 12,000-38,000 -60,000 unit capsule,delayed release(DR/EC) Discontinued 1 CAP PO THREE TIMES A DAY April 18, 2022 11:00pm April 23, 2022 9:19am administer with meals and/or snacks ascorbic acid 250 mg chewable tablet (6 sources) Vitamin C End: 12-06-2021 take 500 mg by mouth once daily Ascorbic Acid (VITAMIN C) 250 mg chew Take 500 mg by mouth once daily. 0 12/06/2021 Discontinued Comment on above: Take 500 mg by mouth once daily. atropine sulfate 0.025 mg / diphenoxylate hydrochloride 2.5 mg oral tablet (20 sources) Anticholinergic, Cholinergic Muscarinic Antagonist, Antidiarrheal Start: 11-29-2018 End: 03-30-2019 take 1 tablet by mouth three times daily Diphenoxylate-Atropin e Discontinued 1 TABLET PO THREE TIMES A DAY November 30, 2018 6:41pm March 30, 2019 1:37pm bisacodyl 5 mg delayed release oral tablet (20 sources) Stimulant Laxative Start: 12-06-2021 Bisacodyl (DULCOLAX) 5 mg tab Indications: Ulcerative 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 with other complication (HCC) Use as directed for Miralax / Gatorade Bowel Prep Kit 4 tablet 0 12/06/2021 Active Comment on above: Use as directed for Miralax / Gatorade Bowel Prep Kit 24 hr budesonide 9 mg extended release oral tablet (6 sources) Corticosteroid Start: 02-23-2021 End: 12-06-2021 take 1 tablet by mouth once daily budesonide (UCERIS) 9 mg TaDE Take 1 tablet by mouth once daily. 90 tablet 4 02/23/2021 12/06/2021 Discontinued Comment on above: Take 1 tablet by bronwyn th once daily. busPIRone hydrochloride 5 mg oral tablet (18 sources) Start: 12-07-2021 End: 12-07-2021 take 2.5 mg by mouth twice daily Buspirone Discontinued 2.5 MG PO TWICE A DAY December 07, 2021 11:59am December 07, 2021 12:25pm Start: 11-15-2021 End: 12-07-2021 take 5 mg by mouth twice daily Buspirone Discontinued 5 MG PO TWICE A DAY 60 November 14, 2021 11:00pm December 07, 2021 12:00pm calcium carbonate 500 mg chewable tablet (20 sources) Start: 12-11-2020 End: 11-15-2021 take 1 tablet by mouth once daily Calcium Carbonate (Tums) 200 mg calcium (500 mg) tablet,chewable Discontinued 1000 MG PO DAILY December 10, 2020 11:00pm November 15, 2021 12:39pm take 1000 mg by mouth once daily calcium carbonate (TUMS ORAL) Take 1,000 mg by mouth once daily. 0 Active Comment on above: Take 1,000 mg by bronwyn th once daily. ciprofloxacin 500 mg oral tablet (10 sources) Quinolone Antimicrobial Start: 12-04-19 End: 03-30-20 take 500 mg by mouth twice daily Ciprofloxacin Hcl Discontinued 500 MG PO TWICE A DAY December 02, 2018 11:00pm March 30, 2019 1:36pm COMPOUNDED PRESCRIPTION (6 sources) Start: 03-16-20 End: 12-07-19 COMPOUNDED PRESCRIPTION catalyn 2 in AM and one in PM 0 03/16/2012 12/06/2021 Discontinued Start: 03-16-2012 COMPOUNDED PRE SCRIPTION catalyn 2 in AM and one in PM 0 03/16/2012 Active Comment on above: catalyn 2 in AM and one in PM doxycycline hyclate 100 mg oral tablet (10 sources) Tetracycline-class Drug Start: 1 End: 2 take 100 mg by mouth twice daily Doxycycline Hyclate Discontinued 100 MG PO TWICE A DAY December 10, 2020 11:00pm November 15, 2021 12:40pm famotidine 20 mg oral tablet (16 sources) Histamine-2 Receptor Antagonist Start: 2 End: 2 take 1 tablet by mouth once daily Famotidine (Pepcid) 20 mg Tablet Discontinued 20 MG PO DAILY March 11, 2022 11:00pm April 23, 2022 9:19am Start: 12-11-2020 End: 11-22-2021 take 1 tablet by mouth once daily Famotidine (Pepcid) 20 mg tablet Discontinued 20 MG PO DAILY December 10, 2020 11:00pm November 22, 2021 2:14pm fluticasone furoate 0.0275 mg/actuat metered dose nasal spray (20 sources) Corticosteroid Start: 06-22-2020 take 2 spray(s) nasal route once daily Fluticasone Furoate 27.5 mcg/actuation nasal spray Use 2 Sprays in each nostril once daily. 15.8 mL 5 06/22/2020 Active Comment on above: Use 2 Sprays in each nostril once daily. furosemide 20 mg oral tablet (3 sources) Loop Diuretic Start: 04-05-2022 End: 06-10-2022 take 1 tablet by mouth once daily in the morning Furosemide (Lasix) 20 mg tablet Discontinued 20 MG PO DAILY April 04, 2022 11:00pm June 10, 2022 2:06pm take one tab first thing in the morning for five days gabapentin 600 mg oral tablet (6 sources) Anti-epileptic Agent End: 12-06-2021 take 1 tablet by mouth three times daily as needed gabapentin (NEURONTIN) 600 mg tablet Take 600 mg by mouth three times daily. prn 0 12/06/2021 Discontinued Comment on above: Take 600 mg by mouth three times daily. prn Gatorade Sports Drink (20 sources) Start: 12-06-2021 Gatorade Sports Drink Indications: Ulcerative 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 with other complication (HCC) Use as directed for Miralax / Gatorade Bowel Prep Kit 0 12/06/2021 Active Start: 02-09-2020 End: 12-06-2021 Gatorade Sports Drink Indica tions: Diarrhea, unspecified type Use as directed for Miralax / Gatorade Bowel Prep Kit 64 oz 0 02/09/2020 12/06/2021 Discontinued Start: 02-09-2020 Gatorade Sport s Drink Indications: Diarrhea, unspecified type Use as directed for Miralax / Gatorade Bowel Prep Kit 64 oz 0 02/09/2020 Active Comment on above: Use as directed for Miralax / Gatorade Bowel Prep Kit hydrOXYzine pamoate 25 mg oral capsule (2 sources) Antihistamine Start: 2 End: 2 take 25 mg by mouth twice daily Hydroxyzine Pamoate Discontinued 25 MG PO TWICE A DAY 60 April 24, 2022 11:00pm June 10, 2022 2:06pm ibuprofen 200 mg oral capsule (10 sources) Nonsteroidal Anti-inflammatory Drug Start: 1 End: 2 take 200 mg by mouth every six hours Ibuprofen Discontinued 200 MG PO EVERY 6 HOURS December 10, 2020 11:00pm November 22, 2021 2:14pm inFLIXimab 100 mg injection (6 sources) Tumor Necrosis Factor Kyra Start: 0 End: 2 inFLIXimab (REMICADE) 100 mg injection Remicade 400mg IV at weeks 0, 2, 6, and every 8 weeks. 400 mg 5 04/03/2020 12/06/2021 Discontinued Comment on above: Remicade 400mg IV at weeks 0, 2, 6, and every 8 weeks. lanolin 0.155 mg/mg / petrolatum 0.534 mg/mg topical ointment (20 sources) Start: 9 End: 9 Vits A And D-White Pet-Lanolin Discontinued 1 APPLIC TP THREE TIMES A DAY November 30, 2018 6:41pm March 30, 2019 1:37pm Start: 11-29-2018 End: 11-30-2018 Vits A And D-White Pet-Lanol in Discontinued 425 GM TP THREE TIMES A DAY November 28, 2018 11:00pm November 30, 2018 6:42pm LORazepam 1 mg oral tablet (6 sources) Benzodiazepine Start: 09-06-2015 End: 12-06-2021 LORazepam (ATIVAN) 1 mg tablet Take 1 tablet by mouth. take one(1) tablet 1 hour before the MRI, and 1 tablet at the time of the MRI if needed 2 tablet 0 09/06/2015 12/06/2021 Discontinued Comment on above: Take 1 tablet by bronwyn th. take one(1) tablet 1 hour before the MRI, and 1 tablet at the time of the MRI if needed metroNIDAZOLE 500 mg oral tablet (20 sources) Nitroimidazole Antimicrobial Start: 12-03-2018 End: 12-08-2018 take 500 mg by mouth every eight hours Metronidazole Discontinued 500 MG PO Q8H December 02, 2018 11:00pm December 08, 2018 2:37pm Start: 10-19-2018 End: 10-24-2018 take 250 mg by mouth three times daily Metronidazole Discontinued 250 MG PO THREE TIMES A DAY 15 October 18, 2018 11:00pm October 23, 2018 11:11pm montelukast 10 mg oral tablet (6 sources) Leukotriene Receptor Antagonist End: 12-06-2021 take 1 tablet by mouth once daily at bedtime montelukast (SINGULAIR) 10 mg tablet Take 10 mg by mouth daily at bedtime. 0 12/06/2021 Discontinued Comment on above: Take 10 mg by mouth daily at bedtime. multivitamin with minerals (HAIR,SKIN AND NAILS ORAL) (6 sources) End: 12-06-2021 multivitamin with minerals (HAIR,SKIN AND NAILS ORAL) Take by mouth once daily. 0 12/06/2021 Discontinued multivitamin wit h minerals (HAIR,SKIN AND NAILS ORAL) Take by mouth once daily. 0 Active Comment on above: Take by mouth once d aily. naproxen sodium 220 mg oral capsule (20 sources) Nonsteroidal Anti-inflammatory Drug Start: 1 End: 2 take 1 capsule by mouth twice daily Naproxen Sodium (Aleve) 220 mg capsule Discontinued 220 MG PO TWICE A DAY December 10, 2020 11:00pm March 21, 2022 9:42am Start: 11-30-2018 End: 12-04-2018 Naproxen Sodium (Aleve) 220 MG tablet Discontinued 440 MG PO NEEDED November 29, 2018 11:00pm December 04, 2018 11:00am Start: 03-08-2013 End: 12-06-2021 take 1 tablet by mouth every twelve hours as needed naproxen (NAPROSYN) 500 mg tablet Take 1 tablet by mouth twice daily as needed (for pain. Take with food.). 0 03/08/2013 12/06/2021 Discontinued naproxen sodium (ALEVE) 220 mg tablet Take 220 mg by mouth as needed. uses 3-4 times /month for low back/extremity pain 0 Active Comment on above: Take 1 tablet by bronwyn th twice daily as needed (for pain. Take with food.). Take 220 mg by mouth as needed. uses 3-4 times /month for low back/extremity pain omeprazole 40 mg delayed release oral capsule (6 sources) Proton Pump Inhibitor End: 2 Omeprazole 40 mg capsule Take 40 mg by mouth as needed. 0 12/06/2021 Discontinued Comment on above: Take 40 mg by mouth as needed. oxyCODONE hydrochloride 10 mg oral tablet (3 sources) Opioid Agonist Start: 2 End: 2 take 10 mg by mouth twice daily Oxycodone Discontinued 10 MG PO TWICE A DAY 09 05March 26, 2022 April 04, 2022 11:04pm pantoprazole 40 mg delayed release oral tablet (20 sources) Proton Pump Inhibitor Start: 2 End: 2 take 1 tablet by mouth twice daily Pantoprazole (Protonix) 40 mg tablet,delayed release (DR/EC) Discontinued 40 MG PO TWICE A DAY 60 April 19, 2022 4:42pm June 10, 2022 2:06pm Start: 12-03-2018 End: 12-06-2021 take 40 mg by mouth once daily Pantoprazole Discontinu ed 40 MG PO DAILY December 02, 2018 11:00pm December 11, 2020 10:58am Comment on above: Take 40 mg by mouth once daily. polyethylene glycol 3350 62859 mg powder for oral solution (20 sources) Osmotic Laxative Start: 02-09-2020 End: 12-06-2021 polyethylene glycol 3350 (MIRALAX, GLYCOLAX) 17 gram/dose powder Indications: Ulcerative 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 with other complication (HCC) Use as directed for Miralax / Gatorade Bowel Prep Kit 238 g 0 12/06/2021 Active Comment on above: Use as directed for Miralax / Gatorade Bowel Prep Kit predniSONE 20 mg oral tablet (20 sources) Start: 03-21-2022 End: 06-10-2022 Prednisone Discontinued 40 MG PO DAILY 40 April 19, 2022 4:42pm June 10, 2022 2:06pm Take 2 tablets for 1 week then go down to 1 tablet daily for a week then half tablet daily for a week, then follow-up with your GI for further instructions Start: 01-04-2022 take 2 tablets by mo uth once daily predniSONE (DELTASONE) 10 mg tablet Take 2 tablets by mouth once daily. 100 tablet 1 01/04/2022 Active Start: 04-03-2020 End: 12-06-2021 take 2 tablets by mouth once daily predniSONE (DELTASONE) 10 mg tablet Take 2 tablets by mouth once daily. 100 tablet 2 04/03/2020 12/06/2021 Discontinued Start: 12-03-2018 End: 03-30-2019 take 20 mg by mouth once daily Prednisone Discontinued 20 MG PO DAILY December 02, 2018 11:00pm March 30, 2019 1:37pm Comment on above: Take 2 tablets by mo ut once daily. sucralfate 1000 mg oral tablet (13 sources) Aluminum Complex Start: 04-19-2022 End: 04-23-2022 take 1 g by mouth twice daily Sucralfate Discontinued 1 GM PO TWICE A DAY 60 April 18, 2022 11:00pm April 23, 2022 9:16am Start: 12-03-2018 End: 01-02-2019 take 1 g by mouth four times daily Sucralfate Discontinued 1 GM PO 4 TIMES DAILY 120 December 02, 2018 11:00pm January 01, 2019 11:08pm traMADol hydrochloride 50 mg oral tablet (20 sources) Opioid Agonist take 1 tablet by mouth every six hours as needed traMADol (ULTRAM) 50 mg tablet Take 50 mg by mouth every 6 hours as needed for pain. 0 Active Comment on above: Take 50 mg by mouth every 6 hours as needed for pain. vancomycin 125 mg oral capsule (9 sources) Glycopeptide Antibacterial Start: 04-23-20 End: 05-03-20 Vancomycin Discontinued 125 MG PO TWICE A DAY 09 05April 22, 2022 11:00pm May 02, 2022 11:04pm start three days prior to stelara infusion for a total of ten days Start: 03-27-2022 End: 04-10-2022 take 125 mg by mouth every six hours Vancomycin Discontinued 125 MG PO EVERY 6 HOURS 12 01March 26, 2022 11:00pm April 09, 2022 11:03pm Start: 01-01-2022 End: 01-15-2022 take 1 capsule by mouth four times daily vancomycin (VANCOCIN) 125 mg capsule Take 1 capsule by mouth four times daily for 14 days. 56 capsule 0 01/01/2022 01/15/2022 Active Comment on above: Take 1 capsule by [facility] four times daily for 14 days. vedolizumab 300 mg injection (20 sources) Integrin Receptor Antagonist Start: 12-11-2020 End: 03-27-2022 vedolizumab (ENTYVIO) 300 mg injection 300mg Intravenous every six weeks. 1 Each 5 01/01/2022 Active Start: 12-11-2020 Vedolizumab (E ntyvio) 300 mg recon soln Active 300 MG .Route December 11, 2020 11:59am IV Start: 08-24-2020 vedolizumab (E NTYVIO) 300 mg injection 300mg Intravenous every 8 weeks. 300 mL 5 08/24/2020 Active Start: 08-24-2020 End: 12-06-2021 vedolizumab (ENTYVIO) 300 mg injection 300mg IV week 0, week 2, and week 6. 300 mL 2 08/24/2020 12/06/2021 Discontinued Comment on above: 300mg IV week 0, wee k 2, and week 6. 300mg Intravenous ev nava 8 weeks. 300mg Intravenous ev nava six weeks. Problems Active Problems Problem Classification Problem Date Documented Date Episodic/Chronic Anxiety disorders (18 sources) Anxiety; Translations: [Anxiety disorder, unspecified] Chronic Bacterial infection; unspecified site (5 sources) Clostridioides difficile infection; Translations: [Other bacterial infections of unspecified site] Episodic Esophageal disorders (20 sources) Gastroesophageal reflux disease; Translations: [Gastro-esophageal reflux disease without esophagitis] 02-09-2020 Chronic Genitourinary symptoms and ill-defined conditions (1 source) Increased frequency of urination; Translations: [Frequency of micturition] Episodic Headache; including migraine (20 sources) Tension-type headache; Translations: [Tension-type headache, unspecified, not intractable] 10-15-2010 Chronic Hemorrhoids (10 sources) Bleeding internal hemorrhoids; Translations: [Other hemorrhoids] Episodic Malaise and fatigue (1 source) Chronic fatigue, unspecified; Translations: [Chronic fatigue, unspecified] Onset: 5 Chronic Miscellaneous mental health disorders (20 sources) Psychosomatic factor in physical condition; Translations: [Psychological and behavioral factors associated with disorders or diseases classified elsewhere] Onset: 1 07-02-2021 Chronic Mood disorders (20 sources) Depressive disorder; Translations: [Depression] Onset: 1 10-15-2010 Chronic Multiple sclerosis (20 sources) Multiple sclerosis; Translations: [Multiple sclerosis] Onset: 5 10-16-2004 Chronic Nausea and vomiting (10 sources) Nausea; Translations: [Nausea] Episodic Noninfectious gastroenteritis (11 sources) Colitis; Translations: [Noninfective gastroenteritis and colitis, unspecified] Episodic Nonmalignant breast conditions (16 sources) Mammographic microcalcification of left breast; Translations: [Mammographic microcalcification found on diagnostic imaging of breast] Episodic Nutritional deficiencies (20 sources) Vitamin D deficiency; Translations: [Vitamin D deficiency, unspecified] Onset: 6 08-03-2015 Chronic Other aftercare (1 source) Long-term current use of systemic steroid; Translations: [skilled nursing (current) use of systemic steroids] Episodic Other and unspecified benign neoplasm (20 sources) History of polyp of colon; Translations: [Personal history of colonic polyps] 07-16-2021 Episodic Other circulatory disease (1 source) Elevated blood-pressure reading without diagnosis of hypertension; Translations: [Elevated blood-pressure reading, without diagnosis of hypertension] Episodic Other circulatory disease (1 source) Elevated blood-pressure reading, without diagnosis of hypertension; Translations: [Elevated blood pressure reading without diagnosis of hypertension] Episodic Other connective tissue disease (1 source) Myalgia, unspecified site; Translations: [Myalgia, unspecified site] Onset: 5 Episodic Other endocrine disorders (9 sources) Polycystic ovary; Translations: [Polycystic ovarian syndrome] Chronic Other endocrine disorders (1 source) Drug-induced adrenocortical insufficiency; 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] Onset: 5 Chronic Other female genital disorders (1 source) Burning sensation of vagina; Translations: [Unspecified condition associated with female genital organs and menstrual cycle] Episodic Other gastrointestinal disorders (1 source) Urgent desire for stool; Translations: [Fecal urgency] Episodic Other gastrointestinal disorders (6 sources) Diarrhea, unspecified; Translations: [Diarrhea] Episodic Other nervous system disorders (1 source) Lesion of sciatic nerve, unspecified lower limb; Translations: [Lesion of sciatic nerve, unspecified lower limb] Onset: 5 Chronic Other non-traumatic joint disorders (10 sources) Hip pain; Translations: [Pain in right hip] Episodic Other nutritional; endocrine; and metabolic disorders (1 source) Abnormal weight loss; Translations: [Abnormal weight loss] Episodic Other screening for suspected conditions (not mental disorders or infectious disease) (20 sources) History of adenomatous polyp of colon; Translations: [Encounter for screening for malignant neoplasm of colon] Onset: 7 01-29-2017 Episodic Other upper respiratory disease (9 sources) Seasonal allergy; Translations: [Other seasonal allergic rhinitis] Chronic Regional enteritis and ulcerative colitis (20 sources) Proctosigmoiditis; Translations: [Ulcerative (chronic) 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 with unspecified complications] Onset: 0 Chronic Spondylosis; intervertebral disc disorders; other back problems (20 sources) Sciatica; Translations: [Sciatica, unspecified side] 10-22-2010 Episodic Thyroid disorders (20 sources) Ruslan thyroiditis; Translations: [Autoimmune thyroiditis] Onset: 6 08-03-2015 Chronic Unclassified (1 source) consult Onset: Past or Other Problems Problem Classification Problem Date Documented Da te Episodic/Chronic Allergic reactions (20 sources) Allergy to drug; Translations: [Allergy status to unspecified drugs, medicaments and biological substances status] Onset: 03-15-2020 03-15-2020 Episodic Deficiency and other anemia (1 source) Anemia, unspecified; Translations: [Anemia, unspecified] Onset: 07-23-2024 Episodic E Codes: Adverse effects of medical drugs (1 source) Adverse effect of glucocorticoids and synthetic analogues, initial encounter; Translations: [Adverse effect of glucocorticoids and synthetic analogues, initial encounter] Onset: 07-23-2024 Episodic Malaise and fatigue (20 sources) Fatigue; Translations: [Other fatigue] Onset: 10-21-2024 Episodic Nutritional deficiencies (20 sources) Cobalamin deficiency; Translations: [Deficiency of other specified B group vitamins] Onset: 05-12-2024 Episodic Other connective tissue disease (20 sources) Cramp; Translations: [Cramp and spasm] Onset: 08-03-2015 08-03-2015 Episodic Other gastrointestinal disorders (20 sources) Diarrhea; Translations: [Diarrhea, unspecified] Onset: 11-28-2010 11-28-2010 Episodic Other nervous system disorders (20 sources) Skin sensation disturbance; Translations: [Unspecified disturbances of skin sensation] Onset: 10-16-2004 10-16-2004 Episodic Results Test Name Value Interpretation Reference Range Facility Office Visit Reporton 2024 Office Visit Report [facility] [address] [place] [address] [place] [address] OFFICE VISIT Date of Service: 03/09/25 MR#: [id number] Acct: [id number] Patient: CHANEL PRASAD Rep #: [id number] : 1960 Provider: Dr. Dustin salazar MD Age/Sex: 65/F Location: [facility] Status: Signed Intake Vital Signs 09/23/24 12:13 03/09/25 12:57 Height 5 ft 4 in 5 ft 4 in Weight: 171 lb BMI 29.3 BP 120/76 Blood Pressure Location Lt brachial Position Sitting Respiration 16 Pulse 83 Pulse Source Monitor Temp 98.4 F Temp Source Temporal Pulse Oximetry (%) 98 Oxygen Delivery Method room air Intake Visit Reasons: B12 INJECTION Chief Complaint: Allergies infliximab (From Remicade) Allergy (Severe, Verified 12/20/24 11:08) Anaphylaxis zinc Allergy (Severe, Verified 12/20/24 11:08) Throwing up budesonide Allergy (Mild, Verified 12/20/24 11:08) Upset Stomach alprazolam Allergy (Unknown, Verified 12/20/24 11:08) Other hydrocodone (From [place]) Allergy (Unknown, Verified 12/20/24 11:08) Other dicyclomine Allergy (Verified 12/20/24 11:08) Vomiting Lactobacillus rhamnosus GG (From [employer] Probiotics) Allergy (Verified 12/20/24 11:08) boils vancomycin Allergy (Verified 12/20/24 11:08) Other balsalazide Adverse Reaction (Severe, Verified 12/20/24 11:08) GI upset and Headache metronidazole (From Flagyl) Adverse Reaction (Severe, Verified 12/20/24 11:08) mental status changes codeine Adverse Reaction (Intermediate, Verified 12/20/24 11:08) Vomiting Penicillins Adverse Reaction (Mild, Verified 12/20/24 11:08) Itching phenazopyridine Adverse Reaction (Unknown, Verified 12/20/24 11:08) GI Upset azithromycin (From Zithromax Z-Del) Adverse Reaction (Verified 12/20/24 11:08) Vomiting mesalamine Adverse Reaction (Verified 12/20/24 11:08) Intolerance naproxen (From Naprosyn) Adverse Reaction (Verified 12/20/24 11:08) Other Sulfa (Sulfonamide Antibiotics) Adverse Reaction (Verified 12/20/24 11:08) Vomiting Office Meds cyanocobalamin (vitamin B-12) 1,000 mcg/mL injection solution Performing Provider: Dustin Manzo MD Performing Location: [facility] Administered by: Kathy Toribio on 03/09/25 13:08 Dose Route Admin Location Dispensed Lot Number Expiration Date NDC Man ufacturer 1,500 mcg IM Right Deltoid 1.5 mL [id number] 12/18/26 [id number] [place] [place] Comments: The patient presents for vitamin B12 injection for treatment of fatigue. She has fatigue. Her last B12 injection was of benefit for fatigue. The patient is awake and alert. Vitamin B12 1,500 IM was administered today. There were no complications. Assessment and Plan Assessment and Plan (1) Fatigue: Status: Chronic Qualifiers: Fatigue type: chronic, unspecified Qualified Code(s): R53.82 - Chronic fatigue, unspecified Orders: Orders Vitamin B12 Today R53.82 - Chronic fatigue, unspecified 03/09/25 1357 Date Dustin Lomax Signature: Date (if applicable) CC: Normal [facility] PT D/C Summary (1)on 025 PT D/C Summary (1) [facility] [place] [address] / REHABILITATION SERVICES DISCHARGE SUMMARY MR#: [id number] Acct: [id number] Name: CHANEL PRASAD Rep #: [id number] : 1960 65 From: Alix Blanco DPT, OCS, CSCS Referring DrNora: SANDRA Plummer Status: REG RC R Insurance: [employer] MED[employer] SELF PAY INSURANCE Discharge Summary D/C summary: It has been my pleasure to treat CHANEL PRASAD referred by SANDRA Glasgow, with the diagnosis of BPPV for a total of 2 visit(s). Discharge Date: 02/15/25 Please see the following information for a summary of their discharge status. Subjective Subjective: I did good. Still feels sway at times. Happens with too much movement like in ex. Not happening much else. Activities are back to normal. Lots of activities taking care of kids. Ewing normal for the last week or so. 96% better. Overall Improvement % Improvement: 96 Objective Objective/Function: VOR H and V and walking in busy environment without LOB or symptoms. Bend and recover easily. Overall 96% better subjectively adn ready to be done with PT. It really helpd. Goals Goal 1:: Pt feel 99% back to normal with dizzy sensation and activity Goal Progress: 96% Goal 2:: Able to go out to eat and social without hesitancy. Goal Progress: Goal Met Goal 3:: DHI score 10 or less. Goal Progress: Goal Met Goal 4:: I appropriate ex to manage condition Goal Progress: Goal Met Goal 5:: Lie flat in bed without hesitation Goal Progress: Goal Met Plan Plan: d/c D/C Information d/c sentence: If there are questions or concerns regarding this patient's physical therapy, please feel free to call me at [phone]. Thank you for the referral of this patient. Sincerely, Alix Blanco, DPT, OCS, CSCS Balance/Gait/Functional tests Balance/Special Test Scores Functional Gait Assessment Score: 30 % Disability: 0 CATSIB Score (Max score 120 seconds): 120 Dizziness Score: 0 Improvement % Improvement: 96 02/15/25 5617 CC: MOLECULAR PATHOLOGIST-C Liliana Plummer; Dr. Lelia Desai MD EBG Signed Normal [facility] SCRN MAMM (CAD)W/SUNNY BILATo n 2025 SCRN MAMM (CAD)W/SUNNY BILAT [facility] Services [address] [place], [place] [address] SCRN MAMM (CAD)W/SUNNY BILAT MR#: [id number] Acct: [id number] Name: CHANEL PRASAD Rep #: [id number] : 1960 F 65 From: Radha Velasquez PCP: Dr. Lelia Desai MD Status: REG CLI Study: SCRN MAMM (CAD)W/SUNNY BILAT Date of Exam: 01/19 08/14 Exam# [id number] Ordering Dr: Liu Baig MOLECULAR PATHOLOGIST MOLECULAR PATHOLOGIST -C EXAM: SCRN MAMM (CAD)W/SUNNY BILAT DATE: 2025 CLINICAL HISTORY: F, Age 65 y/o , SCREENING FOR BREAST CANCER TECHNIQUE: SCRN MAMM (CAD)W/SUNNY BILAT COMPARISON: Prior exam(s) dated 02/06/2024 and 02/04/2023. FINDINGS: TISSUE DENSITY: There are scattered areas of fibroglandular density. Bilateral Breast Mammographic Findings: No suspicious masses, suspicious clustered microcalcifications, architectural distortion or secondary sign of malignancy is identified in either breast. Benign-appearing macrocalcifications and round microcalcifications are seen in both breast. A stable 6 mm, well-circumscribed, isodense mass is seen in the superior outer, far posterior aspect of the right breast. This mass has a fatty hilum and is most compatible with an intramammary lymph node. A radiopaque clip is seen in the superior, middle 3rd aspect of the left breast. The biopsy was benign. Post biopsy site is stable. BI/SCRN MAMM (CAD)W/SUNNY BILAT IMPRESSION: Benign screening mammogram. OVERALL FINAL ASSESSMENT BI-RADS 2: BENIGN RECOMMENDATION: Routine annual follow-up in 1 Year A letter with findings and recommendations will be mailed to the patient. Reading Location: [id number] CC: Lui FLORES McMorrow; Dr. Lelia Desai MD Telegraph Printer Mechanic: Signed Normal [facility] Inital Evaluation (1) - [facility] 02-02-2025 Inital Evaluation (1) - PT [facility] Physical Therapy [facility] [address] [place] [address]. [address] [place] [address] / REHABILITATION SERVICES INITIAL EVALUATION MR#: [id number] Acct: [id number] Name: CHANEL PRASAD Rep #: [id number] : 1960 64 From: Alix Blanco DPT, MELANIE, CSCS Referring Dr.: SANDRA Glasgow Status: REG RC R Insurance: MMO MEDICARE SELF PAY INSURANCE Patient's Visit Information Visit Information Visit Information: CHANEL PRASAD is a 64 year old F referred to Physical Therapy by SANDRA Glasgow with a diagnosis of BPPV. Date of Evaluation: 02/02/25 Physical Therapist: Alix Blanco DPT, MELANIE, CSCS Visit Plan Frequency: 1x/Week Duration: 4-6 Weeks Plan: weekly x 3-6 weeks for porgression of VOR, head movement recalibration ex. IE HEP: VOR stand ft 60 sec 6x/day and education on likely condition adn altrnative possible diagnoses Will f/u 1.5 weeks due to next week being busy and call if problems. Subjective Subjective: I got the vertigo. Had sinus infection bacterial viral in the spring and at . Ears have been off for a while. Vertigo started about 3 weeks ago. Described as off balance. FriJanuary 20 on a boat and wokee up worse. No spinning ever. Feels like she is swaying. It is intermittent now but has colitis and MS and struggles with that sometimes. Walking is swayy. No falls. No AD needed. No neuropathy. Goofyness is intermittent but worse with looking down and hard to concentrate. Sleep is not bad but havier and propping self up. Afraid to lie flat b/c it was worse on the boat. Employed: disability, colitis. Acitvity: limits her in moving fast, likes to stay active and that is harder. Avoids going out due to not knowing when it will get worse. Drives very little. No regualr exercises. Objective Objective: Walks into PT I, chair and bed trasnfer I without symptoms, steps reciprocally without rail. VOR walking is good with slight feeling off for a few seconds. UE and cervical aROM WFL adn strngth 4/5, sensation WFL in B UE. Positional: - HD B and - roll test. Oculomotor: no nystagmus with gaze or head shake - skew ye deviaiton - ocular tilt - head thrust + DVA 5 jabier wors than SVA pursuit and saccades are normal and asymptomatic. VOR H 30 seconds is mild for 15 second symptoms. Overall no BPPV, likely combined with subjctive is unilateral vestib hypofunction. Balance/Special Test Scores Functional Gait Assessment Score: 30 % Disability: 0 CATSIB Score (Max score 120 seconds): 120 Dizziness Score: 52 Goals Goal 1:: Pt feel 99% back to normal with dizzy sensation and activity Goal Time Frame: 4-6 Weeks Goal 2:: Able to go out to eat and social without hesitancy. Goal Time Frame: 4-6 Weeks Goal 3:: DHI score 10 or less. Goal Time Frame: 4-6 Weeks Goal 4:: I appropriate ex to manage condition Goal Time Frame: 4-6 Weeks Goal 5:: Lie flat in bed without hesitation Goal Time Frame: 4-6 Weeks Rehabilitation Potential Physical Therapy Diagnosis: goofy feling in R ar and had with head movements, focus, limiting function. Rehabilitation Potential: Good Anticipated Interventions Patient/Client Instruction: Educate patient on: Condition and Plan of Care For the Purpose of:: To increase tolerance to activity/condition/position Comment: VOR adpatation, head movement For the Purpose of:: To increase tolerance to activity/condition/position Text: Thank you for the opportunity to evaluate your patient. For Medicare and Medicare HMO plans, please review the plan of care and approve it. It will need to be FAXED BACK to us at [phone] for Medicare purposes. For Medicare only, by signing this I certify the plan of care. Please let me know if there are questions or concerns regarding this plan of care. Physician Signature: ___Date: 02/02/25 1140 CC: SANDRA Plummer; Dr. Lelia Desai MD EBG Signed Normal [facility] Office Visit Reporton 2024 Office Visit Report [facility] [address] [place] [address] OFFICE VISIT Date of Service: 01/31/25 MR#: [id number] Acct: [id number] Patient: CHANEL PRASAD Rep #: [id number] : 1960 Provider: Dr. Dustin salazar MD Age/Sex: 64/F Location: [facility]. Status: Signed Intake Vital Signs 09/23/24 12:13 01/31/25 14:34 Height 5 ft 4 in Weight: 170 lb BP 114/66 Blood Pressure Location Lt brachial Position Sitting Respiration 17 Pulse 84 Pulse Source Monitor Temp 98.4 F Temp Source Temporal Pulse Oximetry (%) 96 Oxygen Delivery Method room air Intake Visit Reasons: B12 inject Chief Complaint: Allergies infliximab (From Remicade) Allergy (Severe, Verified 12/20/24 11:08) Anaphylaxis zinc Allergy (Severe, Verified 12/20/24 11:08) Throwing up budesonide Allergy (Mild, Verified 12/20/24 11:08) Upset Stomach alprazolam Allergy (Unknown, Verified 12/20/24 11:08) Other hydrocodone (From [place]) Allergy (Unknown, Verified 12/20/24 11:08) Other dicyclomine Allergy (Verified 12/20/24 11:08) Vomiting Lactobacillus rhamnosus GG (From [employer] Probiotics) Allergy (Verified 12/20/24 11:08) boils vancomycin Allergy (Verified 12/20/24 11:08) Other balsalazide Adverse Reaction (Severe, Verified 12/20/24 11:08) GI upset and Headache metronidazole (From Flagyl) Adverse Reaction (Severe, Verified 12/20/24 11:08) mental status changes codeine Adverse Reaction (Intermediate, Verified 12/20/24 11:08) Vomiting Penicillins Adverse Reaction (Mild, Verified 12/20/24 11:08) Itching phenazopyridine Adverse Reaction (Unknown, Verified 12/20/24 11:08) GI Upset azithromycin (From Zithromax Z-Del) Adverse Reaction (Verified 12/20/24 11:08) Vomiting mesalamine Adverse Reaction (Verified 12/20/24 11:08) Intolerance naproxen (From Naprosyn) Adverse Reaction (Verified 12/20/24 11:08) Other Sulfa (Sulfonamide Antibiotics) Adverse Reaction (Verified 12/20/24 11:08) Vomiting Office Meds cyanocobalamin (vitamin B-12) 1,000 mcg/mL injection solution Performing Provider: Dustin Manzo MD Performing Location: [facility] Administered by: Navya Garcia on 01/31/25 14:35 Dose Route Admin Location Dispensed Lot Number Expiration Date NDC Man ufacturer 1,500 mcg IM left deltoid 1.5 mL [id number] 01/17/26 4699-8634-69 [facility] Comments: The patient presents for B12 injection for treatment of fatigue. She has fatigue. Her last B12 injection was of benefit for fatigue. The patient is awake and alert. B12 1500mcg IM was administered today. There were no complications. Assessment and Plan Assessment and Plan (1) Fatigue: Status: Chronic Qualifiers: Fatigue type: chronic, unspecified Qualified Code(s): R53.82 - Chronic fatigue, unspecified Orders: Orders Vitamin B12 Today R53.82 - Chronic fatigue, unspecified 01/31/25 1708 Date Dustin Lomax Signature: Date (if applicable) CC: Normal [facility] CBC W/Diff, Automatedon 06 Absolute Lymph 2.24 X10 3/uL Normal 0.83-4.51 [facility] Comment on above: Performed By: #### L 503.6550, L503.6030, L100.0100 #### [facility] [address] [place], [address] Absolute Neut 2.7 X10 3/uL Normal 2.0-7.7 [facility] Comment on above: Performed By: #### L 503.6550, L503.6030, L100.0100 #### [facility] [address] [place], [address] Basophils/100 WBC (Bld) 1.5 % High 0-1 [facility] Comment on above: Performed By: #### L 503.6550, L503.6030, L100.0100 #### [facility] [address] [place], [address] Eosinophils/100 WBC (Bld) 1.6 % Normal 0-5 [facility] Comment on above: Performed By: #### L 503.6550, L503.6030, L100.0100 #### [facility] [address] [place], [address] Erythrocyte distribution width (RBC) [Ratio] 13.3 % Normal 11.6-14.6 [facility] Comment on above: Performed By: #### L 503.6550, L503.6030, L100.0100 #### [facility] [address] [place], [address] Hematocrit (Bld) [Volume fraction] 41.1 % Normal 37-47 [facility] Comment on above: Performed By: #### L 503.6550, L503.6030, L100.0100 #### [facility] [address] [place], [address] Hemoglobin (Bld) [Mass/Vol] 13.4 g/dL Normal 12.0-15.0 [facility] Comment on above: Performed By: #### L 503.6550, L503.6030, L100.0100 #### [facility] [address] [place], [address] IG% 0.200 Normal 0.0-0.9 [facility] Comment on above: Result Comment: IG% - Immature Granulocytes (promyelocytes, myelocytes and metamyelocytes) > 1% indicates that a LEFT SHIFT is Present. Performed By: #### L 503.6550, L503.6030, L100.0100 #### [facility] [address] [place], [address] Lymphocytes/100 WBC (Bld) 40.7 % Normal 19-41 [facility] Comment on above: Performed By: #### L 503.6550, L503.6030, L100.0100 #### [facility] [address] [place], [address] MCH (RBC) [Entitic mass] 30.3 pg Normal 27.0-32.0 [facility] Comment on above: Performed By: #### L 503.6550, L503.6030, L100.0100 #### [facility] [address] [place], [address] MCHC (RBC) [Mass/Vol] 32.6 g/dL Normal 32-36 [facility] Comment on above: Performed By: #### L 503.6550, L503.6030, L100.0100 #### [facility] [address] [place], [address] MCV (RBC) [Entitic vol] 93.0 fL Normal 81-99 [facility] Comment on above: Performed By: #### L 503.6550, L503.6030, L100.0100 #### [facility] [address] [place], [address] Monocytes/100 WBC (Bld) 6.4 % Normal 0-10 [facility] Comment on above: Performed By: #### L 503.6550, L503.6030, L100.0100 #### [facility] [address] [place], [address] Neutrophils/100 WBC (Bld) 49.6 % Normal 47-70 [facility] Comment on above: Performed By: #### L 503.6550, L503.6030, L100.0100 #### [facility] [address] [place], [address] Nucleated RBC (Bld) [#/Vol] 0 10*3/uL Normal 0-5 [facility] Comment on above: Performed By: #### L 503.6550, L503.6030, L100.0100 #### [facility] [address] [place], [address] Platelet mean volume (Bld) [Entitic vol] 10.0 fL Normal 6.2-12.0 [facility] Comment on above: Performed By: #### L 503.6550, L503.6030, L100.0100 #### [facility] [address] [place], [address] Platelets (Bld) [#/Vol] 208 10*3/uL Normal 150-450 [facility] Comment on above: Performed By: #### L 503.6550, L503.6030, L100.0100 #### [facility] [address] [place], [address] RBC (Bld) [#/Vol] 4.42 10*6/uL Normal 4.2-5.4 [facility] Comment on above: Performed By: #### L 503.6550, L503.6030, L100.0100 #### [facility] [address] [place], [address] RDW SD 45.8 fl High 35.1-43.9 [facility] Comment on above: Performed By: #### L 503.6550, L503.6030, L100.0100 #### [facility] [address] [place], [address] WBC (Bld) [#/Vol] 5.5 10*3/uL Normal 4.4-11.0 [facility] Comment on above: Performed By: #### L 503.6550, L503.6030, L100.0100 #### [facility] [address] [place], [address] CBC W/Diff, Automatedon 06-2 -2024 Absolute Neut Normal 2.0-7.7 [facility] Comment on above: Order Comment: Order Date: 05/31/24Order Info: [id number] - CBCD Result Comment: DEL Kelly Performed By: #### L 100.0100, L503.6030 ####[facility] [address] [place], [address] HCT Normal 37-47 [facility] Comment on above: Order Comment: Order Date: 05/31/24Order Info: [id number] - CBCD Result Comment: VINCENTON G Performed By: #### L 100.0100, L503.6030 ####[facility] [address] [place], [address] HGB Normal 12.0-15.0 [facility] Comment on above: Order Comment: Order Date: 05/31/24Order Info: [id number] - CBCD Result Comment: VINCENTON G Performed By: #### L 100.0100, L503.6030 ####[facility] [address] [place], [address] MCH Normal 27.0-32.0 [facility] Comment on above: Order Comment: Order Date: 05/31/24Order Info: [id number] - CBCD Result Comment: VINCENTON G Performed By: #### L 100.0100, L503.6030 ####[facility] [address] [place], [address] MCHC Normal 32-36 [facility] Comment on above: Order Comment: Order Date: 05/31/24Order Info: [id number] - CBCD Result Comment: DEL G Performed By: #### L 100.0100, L503.6030 ####[facility] [address] [place], [address] MCV Normal 81-99 [facility] Comment on above: Order Comment: Order Date: 05/31/24Order Info: [id number] - CBCD Result Comment: VINCENTON G Performed By: #### L 100.0100, L503.6030 ####[facility] [address] [place], [address] NEUT% Normal 47-70 [facility] Comment on above: Order Comment: Order Date: 05/31/24Order Info: [id number] - CBCD Result Comment: VINCENTON G Performed By: #### L 100.0100, L503.6030 ####[facility] [address] [place], [address] PLT Normal 150-450 [facility] Comment on above: Order Comment: Order Date: 05/31/24Order Info: [id number] - CBCD Result Comment: WRON G Performed By: #### L 100.0100, L503.6030 ####[facility] [address] [place], [address] RBC Normal 4.2-5.4 [facility] Comment on above: Order Comment: Order Date: 05/31/24Order Info: [id number] - CBCD Result Comment: WRON G Performed By: #### L 100.0100, L503.6030 ####[facility] [address] [place], [address] RDW CV Normal 11.6-14.6 [facility] Comment on above: Order Comment: Order Date: 05/31/24Order Info: [id number] - CBCD Result Comment: WRON G Performed By: #### L 100.0100, L503.6030 ####[facility] [address] [place], [address] RDW SD Normal 35.1-43.9 [facility] Comment on above: Order Comment: Order Date: 05/31/24Order Info: [id number] - CBCD Result Comment: WRON G Performed By: #### L 100.0100, L503.6030 ####[facility] [address] [place], [address] WBC Normal 4.4-11.0 [facility] Comment on above: Order Comment: Order Date: 05/31/24Order Info: [id number] - CBCD Result Comment: WRON G Performed By: #### L 100.0100, L503.6030 ####[facility] [address] [place], [address] Ferritinon 01-13-2025 Ferritin [Mass/Vol] 645 ng/mL High 22-378 [facility] Comment on above: Performed By: #### L 503.6550, L503.6030, L100.0100 #### [facility] [address] [place], [address] Iron+Iron Binding Capacityon 01-13-2025 TIBC 217 ug/dL Low 250-450 [facility] Comment on above: Performed By: #### L 503.6550, L503.6030, L100.0100 #### [facility] [address] [place], [address] IRON Normal 50-170 [facility] Comment on above: Order Comment: Order Date: 05/31/24Order Info: [id number] - IBC Result Comment: WRON G Performed By: #### L 100.0100, L503.6030 ####[facility] [address] [place], [address] IRON SATURATION Normal 13-59 [facility] Comment on above: Order Comment: Order Date: 05/31/24Order Info: [id number] - IBC Result Comment: WRON G Performed By: #### L 100.0100, L503.6030 ####[facility] [address] [place], [address] TIBC Normal 250-450 [facility] Comment on above: Order Comment: Order Date: 05/31/24Order Info: [id number] - IBC Result Comment: WRON G Performed By: #### L 100.0100, L503.6030 ####[facility] [address] [place], [address] UIBC Normal 228-428 [facility] Comment on above: Order Comment: Order Date: 05/31/24Order Info: [id number] - IBC Result Comment: WRON G Performed By: #### L 100.0100, L503.6030 ####[facility] [address] [place], [address] Office Visit Reporton 2024 Office Visit Report [facility] [address] [place] [address] OFFICE VISIT Date of Service: 12/30/24 MR#: [id number] Acct: [id number] Patient: CHANEL PRASAD Rep #: [id number] : 1960 Provider: Dr. Dustin salazar MD Age/Sex: 64/F Location: [facility] Status: Signed Intake Vital Signs 09/23/24 12:13 12/30/24 13:07 Height 5 ft 4 in Weight: 166 lb 10 oz BP 110/76 Blood Pressure Location Lt brachial Position Sitting Respiration 17 Pulse 84 Pulse Source Monitor Temp 98.2 F Temp Source Temporal Pulse Oximetry (%) 96 Oxygen Delivery Method room air Intake Visit Reasons: B12 inject Chief Complaint: Allergies infliximab (From Remicade) Allergy (Severe, Verified 12/20/24 11:08) Anaphylaxis zinc Allergy (Severe, Verified 12/20/24 11:08) Throwing up budesonide Allergy (Mild, Verified 12/20/24 11:08) Upset Stomach alprazolam Allergy (Unknown, Verified 12/20/24 11:08) Other hydrocodone (From [place]) Allergy (Unknown, Verified 12/20/24 11:08) Other dicyclomine Allergy (Verified 12/20/24 11:08) Vomiting Lactobacillus rhamnosus GG (From [employer] Probiotics) Allergy (Verified 12/20/24 11:08) boils vancomycin Allergy (Verified 12/20/24 11:08) Other balsalazide Adverse Reaction (Severe, Verified 12/20/24 11:08) GI upset and Headache metronidazole (From Flagyl) Adverse Reaction (Severe, Verified 12/20/24 11:08) mental status changes codeine Adverse Reaction (Intermediate, Verified 12/20/24 11:08) Vomiting Penicillins Adverse Reaction (Mild, Verified 12/20/24 11:08) Itching phenazopyridine Adverse Reaction (Unknown, Verified 12/20/24 11:08) GI Upset azithromycin (From Zithromax Z-Del) Adverse Reaction (Verified 12/20/24 11:08) Vomiting mesalamine Adverse Reaction (Verified 12/20/24 11:08) Intolerance naproxen (From Naprosyn) Adverse Reaction (Verified 12/20/24 11:08) Other Sulfa (Sulfonamide Antibiotics) Adverse Reaction (Verified 12/20/24 11:08) Vomiting Office Meds cyanocobalamin (vitamin B-12) 1,000 mcg/mL injection solution Performing Provider: Dustin Manzo MD Performing Location: [facility] Administered by: Navya Garcia on 12/30/24 13:01 Dose Route Admin Location Dispensed Lot Number Expiration Date [facility] ufacturer 1,500 mcg IM right deltoid 1.5 mL [id number] 12/18/26 64852-102-64 MARIANNUVRadu THERDanika Comments: The patient presents for B12 injection for treatment of fatigue. She has fatigue. Her last B12 injection was of benefit for fatigue. The patient is awake and alert. B12 1500mcg IM was administered today. There were no complications. Assessment and Plan Assessment and Plan (1) Fatigue: Status: Chronic Qualifiers: Fatigue type: chronic, unspecified Qualified Code(s): R53.82 - Chronic fatigue, unspecified Orders: Orders Vitamin B12 Today R53.82 - Chronic fatigue, unspecified 12/30/24 1744 Date [facility] Signature: Date (if applicable) CC: Normal [facility] CRPon 12-23-2024 C-REACTIVE PROT < 3.00 Normal 0.0-3.0 [facility] [place] Comment on above: Order Comment: PER P T-JUST FRIEND ORDER Performed By: #### L 501.6710, L101.9900, L503.6550 ####[facility] [address] [place], [address] Erythrocyte Sed Rateon 12-23 SED RATE 2 mm/hr Normal 0-30 [facility] Comment on above: Performed By: #### L 501.6710, L101.9900, L503.4150 ####[facility] [address] [place], [address] Ferritinon 12-23-2024 Ferritin [Mass/Vol] 771 ng/mL High 22-378 [facility] Comment on above: Order Comment: PER P BAM BELLO ORDER Performed By: #### L 501.6710, L101.9900, L503.6550 ####[facility] [address] [place], [address] Gastroenterology Visit Repor ton 12-23-2024 Gastroenterology Visit Report [facility] [address] [place] [address] OFFICE VISIT Date of Service: 12/23/24 MR#: [id number] Acct: [id number] Name: CHANEL PRASAD Rep #: [id number] : 1960 Provider: Mike Bello DO Age/Sex: 64/F Location: [facility] Status: Signed with Addenda ADDENDUM by Mike Bello DO on 01/05/25 at 1659 HPI Details: CHANEL PRASAD, is a 64 F who presents to the office today for Assessment/Plan Neuro: Cardiovascular: Respiratory: Gastrointestinal: Genitourinary: ID: Hematology: Endocrine: Skin: Lines/Tubes: Checklist: Time: Assessment Plan Assessment/Plan (1) Ulcerative (chronic) pancolitis with other complication: Status: Acute Code(s): K51.018 - Ulcerative (chronic) pancolitis with other complication Plan: Severe sims ulcerative colitis. She is off of her prednisone taper and has received her Stelara infusion and one 8-week injection. I told her we will need to draw Stelara levels, ESR, CRP and antibody levels to Stelara after 4-5 maintenance doses. She is having mostly formed bowel movements every day. She is not having any more than 3 a day. She finds that a lot of her symptoms are food related. She has been adjusting her diet to eat more balanced diet. She is not showing any extraintestinal manifestations of ulcerative colitis such as no arthritis, vision changes, skin changes. She had a baseline CT scan but will need an MRCP due to the increased risk of primary sclerosing cholangitis with ulcerative colitis. She is taking a lot of Tylenol. She says she is taking up to 3 g secondary to her abdominal pain. I told her for cramping she is to take the dicyclomine and the Tylenol. I will also give her tramadol to take up to twice a day for 2 weeks. I gave her directions of taking the Lomotil before she leaves the house that way she does not have to worry about having any accidents. She did not tolerate the prednisone or the budesonide. So we increased the interval of her Stelara from 8 weeks to 4 weeks. She feels a lot better and getting the Stelara every 4 weeks. Her internal markers are decreasing. She has less body aches and joint swelling. We will recheck her markers along with stool testing in 1 month. 01/05/25 165 Date FriendMike DO cc: * Signed Intake Vital Signs 09/23/24 12:13 Height 5 ft 4 in Intake Visit Reasons: 3 M FU Chief Complaint: Allergies infliximab (From Remicade) Allergy (Severe, Verified 12/20/24 11:08) Anaphylaxis zinc Allergy (Severe, Verified 12/20/24 11:08) Throwing up budesonide Allergy (Mild, Verified 12/20/24 11:08) Upset Stomach alprazolam Allergy (Unknown, Verified 12/20/24 11:08) Other hydrocodone (From [place]) Allergy (Unknown, Verified 12/20/24 11:08) Other dicyclomine Allergy (Verified 12/20/24 11:08) Vomiting Lactobacillus rhamnosus GG (From [employer] Probiotics) Allergy (Verified 12/20/24 11:08) boils vancomycin Allergy (Verified 12/20/24 11:08) Other balsalazide Adverse Reaction (Severe, Verified 12/20/24 11:08) GI upset and Headache metronidazole (From Flagyl) Adverse Reaction (Severe, Verified 12/20/24 11:08) mental status changes codeine Adverse Reaction (Intermediate, Verified 12/20/24 11:08) Vomiting Penicillins Adverse Reaction (Mild, Verified 12/20/24 11:08) Itching phenazopyridine Adverse Reaction (Unknown, Verified 12/20/24 11:08) GI Upset azithromycin (From Zithromax Z-Del) Adverse Reaction (Verified 12/20/24 11:08) Vomiting mesalamine Adverse Reaction (Verified 12/20/24 11:08) Intolerance naproxen (From Naprosyn) Adverse Reaction (Verified 12/20/24 11:08) Other Sulfa (Sulfonamide Antibiotics) Adverse Reaction (Verified 12/20/24 11:08) Vomiting Medications ???Medication ???Instructions ???Recorded ???Confirmed ???Type valacyclovir 500 mg tablet 500 mg PO DAILY PRN Cold Sores 12/0912/23/24 History (Valtrex) levothyroxine 25 mcg tablet 25 mcg PO DAILY 06/10/22 12/23/24 History acetaminophen 500 mg capsule 1,000 mg PO TID PRN pain 09/03/22 12/23/24 History diphenoxylate-atropine 2.5 1 tab PO BID PRN diarrhea #30 tabs 10/31/22 12/23/24 Rx mg-0.025 mg tablet (Lomotil) mecobalamin (vitamin B12) 10,000 mcg subcut QMONTH 03/15/24 5 History mcg solution for injection metaxalone 400 mg tablet 400 mg PO TID PRN muscle pain #90 05/31/24 12/23/24 Rx tabs ustekinumab 90 mg/mL subcutaneous 90 mg subcut Q4W #1 mL 09/03/24 0 12/23/24 Rx syringe (Stelara) celecoxib 100 mg capsule (Celebrex) 100 mg PO QDAY PRN pain 5 12/23/24 History cholecalciferol (vitamin D3) 1,250 1,250 mcg PO QWEEK #4 caps 09/2312/23/24 Rx mcg (50,000 unit) capsule hydrocortisone barry (more content not included)... Normal [facility] Neurology Visit Reporton Neurology Visit Report [facility] [address], [address] [place] [address] OFFICE VISIT Date of Service: 12/20/24 MR#: [id number] Acct: [id number] Name: CHANEL PRASAD Rep #: [id number] : 1960 Provider: Dr. Dustin salazar MD Age/Sex: 64/F Location: [facility]. Status: Signed HPI HPI Chief Complaint: Office Procedures Neurology POC Injection: 1-2 Sites Details:: Procedure note: Trigger point injection The patient reports chronic right gluteal pain and tenderness. The pain at times radiates to the upper right hamstring muscle region. The possibility of a right piriformis syndrome is raised. Written informed consent was obtained. Physical exam: Neuro: The patient is awake and alert Back/extremities: Tenderness is noted over the right gluteal muscles The injection site was prepped with an alcohol swab. Methylprednisolone 40 mg IM and bupivacaine 0.75% 5 mL IM was administered over the right piriformis muscle region. The injection site was bandaged. The patient tolerated the procedure well. There were no complications. 40 mg of an 80 mg vial of methylprednisolone was administered. The remaining 40 mg of methylprednisolone was saved for future use. Office Meds methylprednisolone acetate 80 mg/mL suspension for injection Performing Provider: Dustin Manzo MD Performing Location: [facility] Administered by: Dustin Manzo MD on 12/20/24 11:38 Dose Route Admin Location Dispensed Lot Number Expiration Date [facility] Man ufacturer 40 mg IM 1 mL [id number] 11/18/25 [address]-9 [employer]NE[employer] Assessment and Plan Assessment and Plan (1) Myalgia: Status: Chronic (2) Piriformis syndrome: Status: Acute Orders: Orders Neurology POC Today G57.00 - Lesion of sciatic nerve, unspecified lower limb, M79.10 - Myalgia, unspecified site Methylprednisolone 80mg Today G57.00 - Lesion of sciatic nerve, unspecified lower limb, M79.10 - Myalgia, unspecified site Intake Vital Signs 09/23/24 12:13 12/20/24 11:06 Height 5 ft 4 in Weight: 168 lb 6 oz BP 128/76 H Blood Pressure Location Rt brachial Position Sitting Respiration 17 Pulse 88 Pulse Source Monitor Temp 98.6 F Temp Source Temporal Pulse Oximetry (%) 97 Oxygen Delivery Method room air Intake Visit Reasons: TRIGGER POINT INJECTION Chief Complaint: Lay Out Former Required: No Accompanied by: Self Allergies infliximab (From Remicade) Allergy (Severe, Verified 12/20/24 11:08) Anaphylaxis zinc Allergy (Severe, Verified 12/20/24 11:08) Throwing up budesonide Allergy (Mild, Verified 12/20/24 11:08) Upset Stomach alprazolam Allergy (Unknown, Verified 12/20/24 11:08) Other hydrocodone (From [place]) Allergy (Unknown, Verified 12/20/24 11:08) Other dicyclomine Allergy (Verified 12/20/24 11:08) Vomiting Lactobacillus rhamnosus GG (From [employer]) Allergy (Verified 12/20/24 11:08) boils vancomycin Allergy (Verified 12/20/24 11:08) Other balsalazide Adverse Reaction (Severe, Verified 12/20/24 11:08) GI upset and Headache metronidazole (From Flagyl) Adverse Reaction (Severe, Verified 12/20/24 11:08) mental status changes codeine Adverse Reaction (Intermediate, Verified 12/20/24 11:08) Vomiting Penicillins Adverse Reaction (Mild, Verified 12/20/24 11:08) Itching phenazopyridine Adverse Reaction (Unknown, Verified 12/20/24 11:08) GI Upset azithromycin (From Zithromax Z-Del) Adverse Reaction (Verified 12/20/24 11:08) Vomiting mesalamine Adverse Reaction (Verified 12/20/24 11:08) Intolerance naproxen (From Naprosyn) Adverse Reaction (Verified 12/20/24 11:08) Other Sulfa (Sulfonamide Antibiotics) Adverse Reaction (Verified 12/20/24 11:08) Vomiting [facility] Medical History Multiple sclerosis History of steroid therapy Wears glasses Low iron Back pain WANG (generalized anxiety disorder) Elevated blood pressure reading in office without diagnosis of hypertension Anxiety and depression Clostridium difficile infection PONV (postoperative nausea and vomiting) Post-menopausal Anemia History of factor V Leiden mutation Dietary restriction Non-smoker Ulcerative colitis Preventative health care Hypothyroidism B12 deficiency Polycystic ovaries Irritable bowel syndrome Chronic bronchitis Carpal tunnel syndrome Back pain Seasonal allergies Internal bleeding hemorrhoids Factor 5 Leiden mutation, heterozygous Rectal bleed Hemorrhoids Surgical History History of rectal polypectomy History of esophagogastroduodenoscopy (EGD) History of carpal tunnel surgery of left wrist History of hemorrhoidectomy ( 10/2018) History of appendectomy History of oophorectomy History of hysterec (more content not included)... Normal [facility] Office Visit Reporton 2024 Office Visit Report [facility] [address] [place] [address] OFFICE VISIT Date of Service: 11/29/24 MR#: [id number] Acct: [id number] Patient: CHANEL PRASAD Rep #: [id number] : 1960 Provider: Dr. Dustin salazar MD Age/Sex: 64/F Location: [facility] Status: Signed Intake Vital Signs 09/23/24 12:13 11/29/24 13:49 Height 5 ft 4 in Weight: 166 lb 10 oz BP 118/77 Blood Pressure Location Lt brachial Position Sitting Respiration 17 Pulse 78 Pulse Source Monitor Temp 98.4 F Temp Source Temporal Pulse Oximetry (%) 96 Oxygen Delivery Method room air Intake Visit Reasons: B12 inject Chief Complaint: Allergies infliximab (From Remicade) Allergy (Severe, Verified 09/23/24 11:34) Anaphylaxis zinc Allergy (Severe, Verified 09/23/24 11:34) Throwing up budesonide Allergy (Mild, Verified 09/23/24 11:34) Upset Stomach alprazolam Allergy (Unknown, Verified 09/23/24 11:34) Other hydrocodone (From [place]) Allergy (Unknown, Verified 09/23/24 11:34) Other dicyclomine Allergy (Verified 09/23/24 11:34) Vomiting Lactobacillus rhamnosus GG (From [employer] Probiotics) Allergy (Verified 09/23/24 11:34) boils vancomycin Allergy (Verified 09/23/24 11:34) Other balsalazide Adverse Reaction (Severe, Verified 09/23/24 11:34) GI upset and Headache metronidazole (From Flagyl) Adverse Reaction (Severe, Verified 09/23/24 11:34) mental status changes codeine Adverse Reaction (Intermediate, Verified 09/23/24 11:34) Vomiting Penicillins Adverse Reaction (Mild, Verified 09/23/24 11:34) Itching phenazopyridine Adverse Reaction (Unknown, Verified 09/23/24 11:34) GI Upset azithromycin (From Zithromax Z-Del) Adverse Reaction (Verified 09/23/24 11:34) Vomiting mesalamine Adverse Reaction (Verified 09/23/24 11:34) Intolerance naproxen (From Naprosyn) Adverse Reaction (Verified 09/23/24 11:34) Other Sulfa (Sulfonamide Antibiotics) Adverse Reaction (Verified 09/23/24 11:34) Vomiting Have you fallen in the past year?: No Office Meds cyanocobalamin (vitamin B-12) 1,000 mcg/mL injection solution Performing Provider: Dustin Manzo MD Performing Location: [facility] Administered by: Navya Garcia on 11/29/24 13:31 Dose Route Admin Location Dispensed Lot Number Expiration Date [employer] Man ufacturer 1,500 mcg IM left deltoid 1.5 mL [id number] 10/18/26 22335-930-65 SMITHA ARDON Comments: The patient presents for B12 injection for treatment of fatigue. She has fatigue. Her last B12 injection was of benefit for fatigue. The patient is awake and alert. B12 1500mcg IM was administered today. There were no complications. Assessment and Plan Assessment and Plan (1) Fatigue: Status: Chronic Qualifiers: Fatigue type: chronic, unspecified Qualified Code(s): R53.82 - Chronic fatigue, unspecified Orders: Orders Vitamin B12 Today R53.82 - Chronic fatigue, unspecified Clinical Quality Measures Falls Risk Screening/Assistive Devices Have you fallen in the past year?: No 11/29/24 1705 Date Dustin Manzo MD Cosigner Signature: Date (if applicable) CC: Normal [facility] Adrenocorticotropic Hormoneo n 11-08-2024 ACTH 15.8 pg/mL Normal 7.2-63.3 [facility] Comment on above: Order Comment: Test( s) 873059-Pomfbfgqnmo; 528144-Znrxt Activity, Plasmawas developed and its performance characteristicsdetermined by [facility]. It has not been cleared or approvedby the Food and Drug Administration.N0000 Result Comment: ACTH reference interval for samples collected between 7 and 10 AM. Performed By: #### L 3100.5400, L3100.7000, L801.2600, L3400.0200, L509.6001, L3300.1000, L506.0400, L3100.5055, L3430.0100, L3300.1050, L501.81482, L3400.4800, L501.3620, L3100.5310, L501.9520 ####[facility] [address] [place], [place], [id number] Aldolaseon 11-08-2024 ALDOLASE 4.3 U/L Normal 3.3-10.3 [facility] Comment on above: Order Comment: Test( s) 136501-Eilwlsakayw; 515378-Dyyef Activity, Plasmawas developed and its performance characteristicsdetermined by [facility]. It has not been cleared or approvedby the Food and Drug Administration. Performed By: #### L 3100.5400, L3100.7000, L801.2600, L3400.0200, L509.6001, L3300.1000, L506.0400, L3100.5055, L3430.0100, L3300.1050, L501.34957, L3400.4800, L501.3620, L3100.5310, L501.9520 ####[facility] [address] [place], [address] Catecholamines, Plasmaon DOPAMINE 31 pg/mL Normal 0-48 [facility] Comment on above: Order Comment: Test( s) 747320-Xgxktkgijht; 243576-Nliyg Activity, Plasmawas developed and its performance characteristicsdetermined by [facility]. It has not been cleared or approvedby the Food and Drug Administration. Result Comment: Ef fective November 01, 2024 Dopamine methodology will be changing to Liquid Chromatography Tandem Mass Spectrometry (LC-MS/MS). The reference interval will be changing to: 0.0 - 36.7 pg/mL Performed By: #### L 3100.5400, L3100.7000, L801.2600, L3400.0200, L509.6001, L3300.1000, L506.0400, L3100.5055, L3430.0100, L3300.1050, L501.03791, L3400.4800, L501.3620, L3100.5310, L501.9520 ####[facility] [address] [facility] [place], [address] EPINEPHRINE 25 pg/mL Normal 0-62 [facility] Comment on above: Order Comment: Test( s) 774579-Vxdrxtdygrg; 258671-Gekdo Activity, Plasmawas developed and its performance characteristicsdetermined by [facility]. It has not been cleared or approvedby the Food and Drug Administration. Result Comment: Ef fective November 01, 2024 Epinephrine methodology will be changing to Liquid Chromatography Tandem Mass Spectrometry (LC-MS/MS). The reference interval will be changing to: 0.0 - 55.4 pg/mL Performed By: #### L 3100.5400, L3100.7000, L801.2600, L3400.0200, L509.6001, L3300.1000, L506.0400, L3100.5055, L3430.0100, L3300.1050, L501.72019, L3400.4800, L501.3620, L3100.5310, L501.9520 ####[facility] [address] [facility] [place], [address] NOREPINEPHRINE 534 pg/mL Normal 0-874 [facility] Comment on above: Order Comment: Test( s) 631466-Inrgsuvwhqd; 759732-Nandd Activity, Plasmawas developed and its performance characteristicsdetermined by [facility]. It has not been cleared or approvedby the Food and Drug Administration. Result Comment: Ef fective November 01, 2024 Norepinephrine methodology will be changing to Liquid Chromatography Tandem Mass Spectrometry (LC-MS/MS). The reference interval will be changing to: 115 - 524 pg/mL Performed By: #### L 3100.5400, L3100.7000, L801.2600, L3400.0200, L509.6001, L3300.1000, L506.0400, L3100.5055, L3430.0100, L3300.1050, L501.07958, L3400.4800, L501.3620, L3100.5310, L501.9520 ####[facility] [address] [place], [place], [address] Estrogen, Total, Serumon ESTROGENS,TOTAL 90 pg/mL Normal 40-244 [facility] Comment on above: Order Comment: Test( s) 450784-Waztauxchmx; 412957-Dswfo Activity, Plasmawas developed and its performance characteristicsdetermined by [facility]. It has not been cleared or approvedby the Food and Drug Administration.0000N Result Comment: Prep ubertal < 40 Female Cycle: 1-10 Days 16 - 328 11-20 Days 34 - 501 21-30 Days 48 - 350 Post-Menopausal 40 - 244 Performed at: [address] [id number] Intelligence Specialist: Alecia Seals MD, Phone: [phone] Performed at: [facility] [employer] [id number] Intelligence Specialist: Kimo Saldana PhD, Phone: [phone] Performed By: #### L 3100.5400, L3100.7000, L801.2600, L3400.0200, L509.6001, L3300.1000, L506.0400, L3100.5055, L3430.0100, L3300.1050, L501.49873, L3400.4800, L501.3620, L3100.5310, L501.9520 ####[facility] [address] [place], [address] PROLACTIN 4465on 11-08-2024 PROLACTIN 7.5 ng/mL Normal 3.6-25.2 [facility] Comment on above: Order Comment: Test( s) 336937-Omhtzwmjcsb; 412459-Nblhk Activity, Plasmawas developed and its performance characteristicsdetermined by [facility]. It has not been cleared or approvedby the Food and Drug Administration. Performed By: #### L 3100.5400, L3100.7000, L801.2600, L3400.0200, L509.6001, L3300.1000, L506.0400, L3100.5055, L3430.0100, L3300.1050, L501.81090, L3400.4800, L501.3620, L3100.5310, L501.9520 ####[facility] [address] [place], [place], [id number] Renin/Aldosterone Activityon 11-08-2024 ALD/RENIN RATIO 1.2 Normal 0.0-30.0 [facility] Comment on above: Order Comment: Test( s) 198955-Lnwcllpdrfg; 989254-Ccpkw Activity, Plasmawas developed and its performance characteristicsdetermined by [facility]. It has not been cleared or approvedby the Food and Drug Administration. Result Comment: Unit s: ng/dL per ng/mL/hr Performed By: #### L 3100.5400, L3100.7000, L801.2600, L3400.0200, L509.6001, L3300.1000, L506.0400, L3100.5055, L3430.0100, L3300.1050, L501.31308, L3400.4800, L501.3620, L3100.5310, L501.9520 ####[facility] [address] [place], [place], [address] ALDOSTERONE,S 2.5 ng/dL Normal 0.0-30.0 [facility] Comment on above: Order Comment: Test( s) 489349-Mfjsilvfkfz; 407848-Emvvg Activity, Plasmawas developed and its performance characteristicsdetermined by [facility]. It has not been cleared or approvedby the Food and Drug Administration. Performed By: #### L 3100.5400, L3100.7000, L801.2600, L3400.0200, L509.6001, L3300.1000, L506.0400, L3100.5055, L3430.0100, L3300.1050, L501.32651, L3400.4800, L501.3620, L3100.5310, L501.9520 ####[facility] [address] [place], [place], [id number] RENIN, PLASMA 2.091 ng/mL/hr Normal 0.167-5.38 0 [facility] Comment on above: Order Comment: Test( s) 748973-Gszjxkqcoql; 658020-Potkn Activity, Plasmawas developed and its performance characteristicsdetermined by [facility]. It has not been cleared or approvedby the Food and Drug Administration. Performed By: #### L 3100.5400, L3100.7000, L801.2600, L3400.0200, L509.6001, L3300.1000, L506.0400, L3100.5055, L3430.0100, L3300.1050, L501.61952, L3400.4800, L501.3620, L3100.5310, L501.9520 ####[facility] [address] [place], [place], [id number] Testosterone Freeon 11-09-19 25 TESTOSTER FREE 0.3 pg/mL Normal 0.0-4.2 [facility] Comment on above: Order Comment: Test( s) 724023-Mllwvdipfhv; 397976-Tubog Activity, Plasmawas developed and its performance characteristicsdetermined by [facility]. It has not been cleared or approvedby the Food and Drug Administration. Performed By: #### L 3100.5400, L3100.7000, L801.2600, L3400.0200, L509.6001, L3300.1000, L506.0400, L3100.5055, L3430.0100, L3300.1050, L501.34234, L3400.4800, L501.3620, L3100.5310, L501.9520 ####[facility] [address] [facility]. [place], [place], [id number] Testosterone, Total / Freeon 11-08-2024 TESTOSTER,FREE <.08 Abnormal 0.10-0.85 [facility] Comment on above: Order Comment: Test( s) 540152-Vqhfzqybmny; 651480-Jfshr Activity, Plasmawas developed and its performance characteristicsdetermined by [facility] It has not been cleared or approvedby the Food and Drug Administration.N0000 Performed By: #### L 3100.5400, L3100.7000, L801.2600, L3400.0200, L509.6001, L3300.1000, L506.0400, L3100.5055, L3430.0100, L3300.1050, L501.71308, L3400.4800, L501.3620, L3100.5310, L501.9520 ####[facility] [address] [facility] [place], [place], [id number] TESTOSTER,TOTAL < 3 Low 3-67 [facility] Comment on above: Order Comment: Test( s) 844454-Yzvmlbubwuw; 522318-Ybigp Activity, Plasmawas developed and its performance characteristicsdetermined by [facility]. It has not been cleared or approvedby the Food and Drug Administration.N0000 Performed By: #### L 3100.5400, L3100.7000, L801.2600, L3400.0200, L509.6001, L3300.1000, L506.0400, L3100.5055, L3430.0100, L3300.1050, L501.21147, L3400.4800, L501.3620, L3100.5310, L501.9520 ####[facility] [address] [place], [address] TESTOSTERONE,%F 2.71 Normal 0.50-2.80 [facility] Comment on above: Order Comment: Test( s) 277255-Fzwdpezbuqo; 303046-Mlqvi Activity, Plasmawas developed and its performance characteristicsdetermined by [facility]. It has not been cleared or approvedby the Food and Drug Administration.N0000 Performed By: #### L 3100.5400, L3100.7000, L801.2600, L3400.0200, L509.6001, L3300.1000, L506.0400, L3100.5055, L3430.0100, L3300.1050, L501.40082, L3400.4800, L501.3620, L3100.5310, L501.9520 ####[facility] [address] [place], [address] Office Visit Reporton 2024 Office Visit Report [facility] [address] [place] [address] OFFICE VISIT Date of Service: 10/28/24 MR#: [id number] Acct: [id number] Patient: CHANEL PRASAD Rep #: [id number] : 1960 Provider: Dr. Dustin salazar MD Age/Sex: 64/F Location: [facility] Status: Signed Intake Vital Signs 09/23/24 12:13 10/28/24 13:10 Height 5 ft 4 in Weight: 168 lb BP 118/84 H Blood Pressure Location Lt brachial Position Sitting Respiration 17 Pulse 84 Pulse Source Monitor Temp 98.4 F Temp Source Temporal Pulse Oximetry (%) 97 Oxygen Delivery Method room air Intake Visit Reasons: B12 inject Chief Complaint: Allergies infliximab (From Remicade) Allergy (Severe, Verified 09/23/24 11:34) Anaphylaxis zinc Allergy (Severe, Verified 09/23/24 11:34) Throwing up budesonide Allergy (Mild, Verified 09/23/24 11:34) Upset Stomach alprazolam Allergy (Unknown, Verified 09/23/24 11:34) Other hydrocodone (From [place]) Allergy (Unknown, Verified 09/23/24 11:34) Other dicyclomine Allergy (Verified 09/23/24 11:34) Vomiting Lactobacillus rhamnosus GG (From [employer]otics) Allergy (Verified 09/23/24 11:34) boils vancomycin Allergy (Verified 09/23/24 11:34) Other balsalazide Adverse Reaction (Severe, Verified 09/23/24 11:34) GI upset and Headache metronidazole (From Flagyl) Adverse Reaction (Severe, Verified 09/23/24 11:34) mental status changes codeine Adverse Reaction (Intermediate, Verified 09/23/24 11:34) Vomiting Penicillins Adverse Reaction (Mild, Verified 09/23/24 11:34) Itching phenazopyridine Adverse Reaction (Unknown, Verified 09/23/24 11:34) GI Upset azithromycin (From Zithromax Z-Del) Adverse Reaction (Verified 09/23/24 11:34) Vomiting mesalamine Adverse Reaction (Verified 09/23/24 11:34) Intolerance naproxen (From Naprosyn) Adverse Reaction (Verified 09/23/24 11:34) Other Sulfa (Sulfonamide Antibiotics) Adverse Reaction (Verified 09/23/24 11:34) Vomiting Office Meds cyanocobalamin (vitamin B-12) 1,000 mcg/mL injection solution Performing Provider: Dustin Manzo MD Performing Location: [facility] Administered by: Navya Garcia on 10/28/24 13:14 Dose Route Admin Location Dispensed Lot Number Expiration Date [facility] Man ufacturer 1,500 mcg IM right deltoid 1.5 mL [id number] 10/18/26 38008-796-44 MARIANNUVI THERA Comments: The patient presents for B12 injection for treatment of fatigue. She has fatigue. Her last B12 injection was of benefit for fatigue. The patient is awake and alert. B12 1500mcg IM was administered today. There were no complications. Assessment and Plan Assessment and Plan (1) Fatigue: Status: Chronic Qualifiers: Fatigue type: chronic, unspecified Qualified Code(s): R53.82 - Chronic fatigue, unspecified Orders: Orders Vitamin B12 Today R53.82 - Chronic fatigue, unspecified 10/28/24 1703 Date Dustin Lomax Signature: Date (if applicable) CC: Normal [facility] PROGESTERONE 4317on 10-25-19 25 PROGESTERONE 0.1 ng/mL Normal . [facility] Comment on above: Order Comment: N0000 Result Comment: Foll icular phase 0.1 - 0.9 Luteal phase 1.8 - 23.9 Ovulation phase 0.1 - 12.0 First trimester 11.0 - 44.3 Second trimester 25.4 - 83.3 Third trimester 58.7 - 214.0 Postmenopausal 0.0 - 0.1 Performed at: [place] [id number] Intelligence Specialist: Kimo Saldana PhD, Phone: [phone] Performed By: #### L 3100.5400, L3100.7000, L801.2600, L3400.0200, L509.6001, L3300.1000, L506.0400, L3100.5055, L3430.0100, L3300.1050, L501.04425, L3400.4800, L501.3620, L3100.5310, L501.9520 ####[facility] [address] [place], [place], [phone] CPK Total, Creatine Kinaseon 10-22-2024 CPK TOTAL 65 U/L Normal 24-195 [facility] Comment on above: Performed By: #### L 3100.5400, L3100.7000, L801.2600, L3400.0200, L509.6001, L3300.1000, L506.0400, L3100.5055, L3430.0100, L3300.1050, L501.47759, L3400.4800, L501.3620, L3100.5310, L501.9520 #### [facility] [address] [place], [address] FSH and LHon 10-22-2024 FSH 83.7 mIU/mL Normal [facility] Comment on above: Result Comment: FEMA LE: Follicular: 1.4 - 18.1 mIU/mL Midcycle: 3.4 - 33.4 mIU/mL Luteal: 1.5 - 9.1 mIU/mL Post Menopause: 23.0 - 116.3 mIU/mL MALE: 1.4 - 18.1 mIU/mL NORMAL REFERENCE RANGES FEMALE FOLLICULAR 2.3 - 12.6 mIU/mL MID-CYCLE PEAK 5.2 - 17.5 mIU/mL LUTEAL 1.7 - 12.9 mIU/mL POST-MENOPAUSAL ON MHT 5.9 - 72.8 mIU/mL NOT ON MHT 12.7 - 132.2 mlU/mL MALE 0.7 - 10.8 mIU/mL Performed By: #### L 3100.5400, L3100.7000, L801.2600, L3400.0200, L509.6001, L3300.1000, L506.0400, L3100.5055, L3430.0100, L3300.1050, L501.77317, L3400.4800, L501.3620, L3100.5310, L501.9520 ####[facility] [address] [place], [address] LH 32.0 mIU/mL Normal [facility] Comment on above: Result Comment: FEMA LE: Follicular: 1.9-12.5 mIU/mL Midcycle: 8.7-76.3 mIU/mL Luteal: 0.5-16.9 mIU/mL Post Menopause: 15.9-54.0 mIU/mL MALE: 20-70 Years: 1.5-9.3 mIU/mL >70 Years: 3.1-34.6 mIU/mL Performed By: #### L 3100.5400, L3100.7000, L801.2600, L3400.0200, L509.6001, L3300.1000, L506.0400, L3100.5055, L3430.0100, L3300.1050, L501.33104, L3400.4800, L501.3620, L3100.5310, L501.9520 ####[facility] [address] [place], [place], [phone] Free T3on 10-22-2024 Free T3 [Mass/Vol] 2.9 pg/mL Normal 2.18-3.98 [facility] Comment on above: Order Comment: N0000 Performed By: #### L 3100.5400, L3100.7000, L801.2600, L3400.0200, L509.6001, L3300.1000, L506.0400, L3100.5055, L3430.0100, L3300.1050, L501.46957, L3400.4800, L501.3620, L3100.5310, L501.9520 ####[facility] [address] [place], [address] L509.6001on 10-22-2024 CORTISOL 8.55 ug/dL Normal 6.02-18.40 [facility] Comment on above: Order Comment: 0000 Performed By: #### L 3100.5400, L3100.7000, L801.2600, L3400.0200, L509.6001, L3300.1000, L506.0400, L3100.5055, L3430.0100, L3300.1050, L501.75596, L3400.4800, L501.3620, L3100.5310, L501.9520 ####[facility] [address] [place], [place], [phone] T4 Free Directon 10-22-2024 T4 FREE DIRECT 1.00 ng/dL Normal 0.76-1.46 [facility] Comment on above: Order Comment: N0000 Performed By: #### L 3100.5400, L3100.7000, L801.2600, L3400.0200, L509.6001, L3300.1000, L506.0400, L3100.5055, L3430.0100, L3300.1050, L501.51127, L3400.4800, L501.3620, L3100.5310, L501.9520 ####[facility] [address] [place], [address] Thyroid Stim Hormone (TSH)on 10-22-2024 TSH 2.050 uIU/mL Normal 0.300-4.20 0 [facility] Comment on above: Performed By: #### L 3100.5400, L3100.7000, L801.2600, L3400.0200, L509.6001, L3300.1000, L506.0400, L3100.5055, L3430.0100, L3300.1050, L501.55546, L3400.4800, L501.3620, L3100.5310, L501.9520 ####[facility] [address] [place], [place], [address] Office Visit Reporton 2024 Office Visit Report [facility] [address] [place] [address] OFFICE VISIT Date of Service: 09/27/24 MR#: [id number] Acct: [id number] Patient: CHANEL PRASAD Rep #: [id number] : 1960 Provider: Dr. Dustin salazar MD Age/Sex: 64/F Location: [facility] Status: Signed Intake Vital Signs 07/26/24 13:05 09/23/24 12:13 09/27/24 13:04 Height 5 ft 4 in 5 ft 4 in Weight: 166 lb 13 oz BP 118/76 Blood Pressure Location Rt brachial Position Sitting Respiration 17 Pulse 89 Pulse Source Monitor Temp 98.4 F Temp Source Temporal Pulse Oximetry (%) 97 Oxygen Delivery Method room air Intake Visit Reasons: B12 inject Chief Complaint: Allergies infliximab (From Remicade) Allergy (Severe, Verified 09/23/24 11:34) Anaphylaxis zinc Allergy (Severe, Verified 09/23/24 11:34) Throwing up budesonide Allergy (Mild, Verified 09/23/24 11:34) Upset Stomach alprazolam Allergy (Unknown, Verified 09/23/24 11:34) Other hydrocodone (From [place]) Allergy (Unknown, Verified 09/23/24 11:34) Other dicyclomine Allergy (Verified 09/23/24 11:34) Vomiting Lactobacillus rhamnosus GG (From [employer]) Allergy (Verified 09/23/24 11:34) boils vancomycin Allergy (Verified 09/23/24 11:34) Other balsalazide Adverse Reaction (Severe, Verified 09/23/24 11:34) GI upset and Headache metronidazole (From Flagyl) Adverse Reaction (Severe, Verified 09/23/24 11:34) mental status changes codeine Adverse Reaction (Intermediate, Verified 09/23/24 11:34) Vomiting Penicillins Adverse Reaction (Mild, Verified 09/23/24 11:34) Itching phenazopyridine Adverse Reaction (Unknown, Verified 09/23/24 11:34) GI Upset azithromycin (From Zithromax Z-Del) Adverse Reaction (Verified 09/23/24 11:34) Vomiting mesalamine Adverse Reaction (Verified 09/23/24 11:34) Intolerance naproxen (From Naprosyn) Adverse Reaction (Verified 09/23/24 11:34) Other Sulfa (Sulfonamide Antibiotics) Adverse Reaction (Verified 09/23/24 11:34) Vomiting Have you fallen in the past year?: No Office Meds cyanocobalamin (vitamin B-12) 1,000 mcg/mL injection solution Performing Provider: Dustin Manzo MD Performing Location: [facility] Administered by: Navya Garcia on 09/27/24 13:09 Dose Route Admin Location Dispensed Lot Number Expiration Date [facility] Man ufacturer 1,500 mcg IM right deltoid 1.5 mL [id number] 10/18/26 08996-384-22 VITRUV IAS REVA Comments: The patient presents for B12 injection for treatment of fatigue. She has fatigue. Her last B12 injection was of benefit for fatigue. The patient is awake and alert. B12 1500mcg IM was administered today. There were no complication Assessment and Plan Assessment and Plan (1) Fatigue: Status: Chronic Orders: Orders Vitamin B12 Today R53.82 - Chronic fatigue, unspecified Clinical Quality Measures Falls Risk Screening/Assistive Devices Have you fallen in the past year?: No 09/27/24 1616 Date Dustin Lomax Signature: Date (if applicable) CC: Normal [facility] Gastroenterology Visit Repor ton 09-23-2024 Gastroenterology Visit Report [facility] [address] [place] [address] OFFICE VISIT Date of Service: 09/23/24 MR#: [id number] Acct: [id number] Name: CHANEL PRASAD Rep #: [id number] : 1960 Provider: Mike Bello DO Age/Sex: 64/F Location: [facility] Status: Signed Intake Vital Signs 06/21/24 13:05 09/23/24 12:13 Height 5 ft 4 in 5 ft 4 in Intake Visit Reasons: 3 month f/u Chief Complaint: Allergies infliximab (From Remicade) Allergy (Severe, Verified 09/23/24 11:34) Anaphylaxis zinc Allergy (Severe, Verified 09/23/24 11:34) Throwing up budesonide Allergy (Mild, Verified 09/23/24 11:34) Upset Stomach alprazolam Allergy (Unknown, Verified 09/23/24 11:34) Other hydrocodone (From [place]) Allergy (Unknown, Verified 09/23/24 11:34) Other dicyclomine Allergy (Verified 09/23/24 11:34) Vomiting Lactobacillus rhamnosus GG (From [employer]otics) Allergy (Verified 09/23/24 11:34) boils vancomycin Allergy (Verified 09/23/24 11:34) Other balsalazide Adverse Reaction (Severe, Verified 09/23/24 11:34) GI upset and Headache metronidazole (From Flagyl) Adverse Reaction (Severe, Verified 09/23/24 11:34) mental status changes codeine Adverse Reaction (Intermediate, Verified 09/23/24 11:34) Vomiting Penicillins Adverse Reaction (Mild, Verified 09/23/24 11:34) Itching phenazopyridine Adverse Reaction (Unknown, Verified 09/23/24 11:34) GI Upset azithromycin (From Zithromax Z-Del) Adverse Reaction (Verified 09/23/24 11:34) Vomiting mesalamine Adverse Reaction (Verified 09/23/24 11:34) Intolerance naproxen (From Naprosyn) Adverse Reaction (Verified 09/23/24 11:34) Other Sulfa (Sulfonamide Antibiotics) Adverse Reaction (Verified 09/23/24 11:34) Vomiting Medications ???Medication ???Instructions ???Recorded ???Confirmed ???Type valacyclovir 500 mg tablet 500 mg PO DAILY PRN Cold Sores 12/0909/23/24 History (Valtrex) levothyroxine 25 mcg tablet 25 mcg PO DAILY 06/10/22 09/23/24 History acetaminophen 500 mg capsule 1,000 mg PO TID PRN pain 09/03/22 09/23/24 History diphenoxylate-atropine 2.5 1 tab PO BID PRN diarrhea #30 tabs 10/31/22 09/23/24 Rx mg-0.025 mg tablet (Lomotil) dicyclomine 20 mg tablet 20 mg PO TID PRN abdominal pain 09/23/24 History mecobalamin (vitamin B12) 10,000 mcg subcut QMONTH 03/15/24 5 History mcg solution for injection metaxalone 400 mg tablet 400 mg PO TID PRN muscle pain #90 05/31/24 09/23/24 Rx tabs ustekinumab 90 mg/mL subcutaneous 90 mg subcut Q4W #1 mL 09/03/24 0 09/23/24 Rx syringe (Stelara) celecoxib 100 mg capsule (Celebrex) 100 mg PO QDAY PRN pain 5 03/06/25 History cholecalciferol (vitamin D3) 1,250 1,250 mcg PO QWEEK #4 caps 09/2309/23/24 Rx mcg (50,000 unit) capsule PFSH Medical History Multiple sclerosis History of steroid therapy Wears glasses Low iron Back pain WANG (generalized anxiety disorder) Elevated blood pressure reading in office without diagnosis of hypertension Anxiety and depression Clostridium difficile infection PONV (postoperative nausea and vomiting) Post-menopausal Anemia History of factor V Leiden mutation Dietary restriction Non-smoker Ulcerative colitis Preventative health care Hypothyroidism B12 deficiency Polycystic ovaries Irritable bowel syndrome Chronic bronchitis Carpal tunnel syndrome Back pain Seasonal allergies Internal bleeding hemorrhoids Factor 5 Leiden mutation, heterozygous Rectal bleed Hemorrhoids Surgical History History of rectal polypectomy History of esophagogastroduodenoscopy (EGD) History of carpal tunnel surgery of left wrist History of hemorrhoidectomy ( 10/2018) History of appendectomy History of oophorectomy History of hysterectomy History of colonoscopy ( 2016) Family History Grandmother CVA (cerebral vascular accident) Father Alcoholism Sister Alcoholism Asthma Factor V Leiden Mother Depression CVA (cerebral vascular accident) Other Anxiety Social History Smoking Status: Never smoker Electronic Cigarette Use: not used second hand exposure: No alcohol intake: never substance use type: does not use what type of physical activity do you participate in: walking frequency: daily duration: 15-30 minutes/day HPI HPI Chief Complaint: Details: CHANEL PRASAD, is a 64 F who presents to the office today for follow up. PMH ruslan???s thyroiditis/hypothyroid; MS; pt reports Factor V mutation. Established with psychology. PSH hemorrhoidectomy; right ovary removal 1986; (more content not included)... Normal [facility] Neurology Visit Reporton Neurology Visit Report [facility] [address] [place] [address], [address] [place] [address] OFFICE VISIT Date of Service: 09/23/24 MR#: [id number] Acct: [id number] Name: CHANEL PRASAD Rep #: [id number] : 1960 Provider: Dr. Dustin salazar MD Age/Sex: 64/F Location: [facility]. Status: Signed HPI [facility] Chief Complaint: Details: Interim History: Chanel returns for follow-up visit. She has a history of ulcerative colitis, hypothyroidism, positive factor V Leiden, hysterectomy in 2003 for endometriosis, unilateral oophorectomy for an enlarging lesion of the ovary, anxiety, and multiple sclerosis. In 2004, she began to experience left hand numbness, chest tingling and a burning sensation in the mouth and on evaluation at the [facility] in 2004, which included a head MRI and cervical spine MRI, she was diagnosed with multiple sclerosis and findings on MRI imaging supported this diagnosis. She did not have a lumbar puncture. Her MRIs did not reveal active plaques (abnormal enhancement) and subsequent MRIs of the brain did not reveal any major change in the white matter abnormalities noted. She was treated with Avonex for about 9 years. In 2013, she discontinued Avonex due to cognitive and mood side effects. She has not taken other disease modifying therapy for her multiple sclerosis. She has not received corticosteroids for her multiple sclerosis though following her diagnosis of ulcerative colitis in 2018, she was treated with prednisone for the ulcerative colitis (this was not tolerated due to a side effect of hyperactivity). She does not have any symptoms relating to her positive factor V Leiden and she reported that no specific treatment for this was felt to be indicated. Testing for factor V Leiden was originally pursued due to her sister having a positive factor V Leiden. Over the years, she has had minor exacerbations of her multiple sclerosis manifesting with increased fatigue, muscle spasms and tingling. These episodes typically occurred if she was exposed to hot weather or performed strenuous activity and the exacerbations typically would resolve within 1 day; overall, she has not had significant progressive decline in her function apart from a prominence of fatigue and some impairment with fine motor control of the hands with activities such as buttoning buttons and she has not had any exacerbations within recent months. Her oral pain resolved. She has experienced a feeling of heaviness in the legs. Remicade for her ulcerative colitis was not tolerated. In 2023, she was started on Stelara and mesalamine for her ulcerative colitis. She is on levothyroxine for hypothyroidism. She has been taking vitamin D 1.25mg weekly for vitamin D deficiency and leg cramps. Her B12 level was previously noted to be near the low end of the normal range. B12 injections have been of benefit for her fatigue (1000 mcg dose was only modestly effective and her dose was increased to 1500 mcg IM). She has had occasional urinary stress incontinence. Diclofenac gel and naproxen were not of benefit for her musculoskeletal pain. Flurbiprofen was of modest benefit. She is taking celecoxib and acetaminophen for her musculoskeletal pain. She had a COVID-19 infection in July 2021. Due to claustrophobia and panic she was unable to tolerate having a head MRI even when the MRI was performed in an open MRI and pretreatment with clonazepam was given. She has had iron deficiency anemia. She did not tolerate iron tablets. She had a Monoferric 1000 mg IV infusion in July 2021 and this was of benefit for her fatigue. She received further Monoferric 1000 mg IV infusions in 2022 for iron deficiency and this was of benefit for her fatigue. Her last serum iron (April 2024) was low and ferritin (July 2024) was high. Folic acid supplementation was discontinued due to her high ferritin level. She has low back pain that has radiated to the right hamstring region. In March 2021, she had right upper extremity and right-sided neck shingles and was treated with a course of valacyclovir and this resolved. She had prior left carpal tunnel surgery. She has bilateral hip pain. Pelvic and hip x-rays in 2020 were unremarkable. Mild lumbar degenerative joint disease is noted on lumbar x-rays (2020). A right lumbar paraspinal muscle trigger point injection in June 2022 provided only 1 to 2 days of pain reduction in this region. She no longer sees a paint dipper, Dr. Joya; lumbar injections were not of significant benefit. She now states she is no longer experiencing left hip pain or low back pain. Her pain is now localized to the right gluteal region. She is receiving physical therapy and is performing exercises and these are of benefit. She had seen a psychiatrist, Dr. Buck, for her anxiety and agoraphobia. Amitriptyline, buspirone and hydroxyzine were not well-tolerated. She is no (more content not included)... Normal [facility] Office Visit Reporton 2024 Office Visit Report [facility] [address] [place] [address] OFFICE VISIT Date of Service: 08/26/24 MR#: [id number] Acct: [id number] Patient: CHANEL PRASAD Rep #: [id number] : 1960 Provider: Dr. Dustin salazar MD Age/Sex: 64/F Location: [facility] Status: Signed Intake Vital Signs 06/21/24 13:05 08/26/24 13:00 Height 5 ft 4 in 5 ft 4 in Weight: 164 lb 3 oz 165 lb BMI 28.1 28.3 BP 120/82 H 108/72 Blood Pressure Location Rt brachial Lt brachial Position Sitting Sitting Respiration 17 15 Pulse 89 80 Pulse Source Monitor Monitor Temp 98.4 F 98.6 F Temp Source Temporal Temporal Pulse Oximetry (%) 96 98 Oxygen Delivery Method room air room air Intake Visit Reasons: B12 inject Chief Complaint: Allergies infliximab (From Remicade) Allergy (Severe, Verified 05/31/24 11:36) Anaphylaxis zinc Allergy (Severe, Verified 05/31/24 11:36) Throwing up budesonide Allergy (Mild, Verified 05/31/24 11:36) Upset Stomach alprazolam Allergy (Unknown, Verified 05/31/24 11:36) Other hydrocodone (From [place]) Allergy (Unknown, Verified 05/31/24 11:36) Other dicyclomine Allergy (Verified 05/31/24 11:36) Vomiting Lactobacillus rhamnosus GG (From [employer]) Allergy (Verified 05/31/24 11:36) boils vancomycin Allergy (Verified 05/31/24 11:36) Other balsalazide Adverse Reaction (Severe, Verified 05/31/24 11:36) GI upset and Headache metronidazole (From Flagyl) Adverse Reaction (Severe, Verified 05/31/24 11:36) mental status changes codeine Adverse Reaction (Intermediate, Verified 05/31/24 11:36) Vomiting Penicillins Adverse Reaction (Mild, Verified 05/31/24 11:36) Itching phenazopyridine Adverse Reaction (Unknown, Verified 05/31/24 11:36) GI Upset azithromycin (From Zithromax Z-Del) Adverse Reaction (Verified 05/31/24 11:36) Vomiting mesalamine Adverse Reaction (Verified 05/31/24 11:36) Intolerance naproxen (From Naprosyn) Adverse Reaction (Verified 05/31/24 11:36) Other Sulfa (Sulfonamide Antibiotics) Adverse Reaction (Verified 05/31/24 11:36) Vomiting Office Meds cyanocobalamin (vitamin B-12) 1,000 mcg/mL injection solution Performing Provider: Dustin Manzo MD Performing Location: [facility] Administered by: Kathy Toribio on 08/26/24 13:07 Dose Route Admin Location Dispensed Lot Number Expiration Date [facility] Man ufacturer 1,500 mcg IM Right Deltoid 1.5 mL [id number] 10/18/26 85602-424-83 L[place] Comments: The patient presents for vitamin B12 injection for treatment of fatigue and a history of vitamin B12 deficiency. She has fatigue. Her last B12 injection was of benefit for fatigue. The patient is awake and alert. Vitamin B12 1,500 IM was administered today. There were no complications. Assessment and Plan Assessment and Plan (1) Fatigue: Status: Chronic Qualifiers: Fatigue type: chronic, unspecified Qualified Code(s): R53.82 - Chronic fatigue, unspecified (2) B12 deficiency: Status: Chronic Comment: INJECTION 12/01/23 Orders: Orders Vitamin B12 Today E53.8 - Deficiency of other specified B group vitamins, R53.82 - Chronic fatigue, unspecified 08/26/24 1327 Date Dustin Manzo MD Cosigner Signature: Date (if applicable) CC: Normal [facility] LG + Protein Elect, Serumon 07-27-2024 Albumin [Mass/Vol] 3.5 g/dL Normal 2.9-4.4 [facility] Comment on above: Order Comment: N Performed By: #### L 503.0105, L506.0250, L503.6550, L101.9900, L3100.3425, L509.6000, L501.5200 ####[facility] [address] [place], [address] Albumin/Globulin [Mass ratio] 1.3 {ratio} Normal 0.7-1.7 [facility] Comment on above: Order Comment: N Performed By: #### L 503.0105, L506.0250, L503.6550, L101.9900, L3100.3425, L509.6000, L501.5200 ####[facility] [address] [place], [address] [id number] 0.2 g/dL Normal 0.0-0.4 [facility] Comment on above: Order Comment: N Performed By: #### L 503.0105, L506.0250, L503.6550, L101.9900, L3100.3425, L509.6000, L501.5200 ####[facility] [address] [place], [address] [id number]-[id number] 0.7 g/dL Normal 0.4-1.0 [facility] Comment on above: Order Comment: N Performed By: #### L 503.0105, L506.0250, L503.6550, L101.9900, L3100.3425, L509.6000, L501.5200 ####[facility] [address] [place], [address] BETA GLOBULIN 1.0 g/dL Normal 0.7-1.3 [facility] Comment on above: Order Comment: N Performed By: #### L 503.0105, L506.0250, L503.6550, L101.9900, L3100.3425, L509.6000, L501.5200 ####[facility] [address] [place], [address] GAMMA GLOBULIN 0.8 g/dL Normal 0.4-1.8 [facility] Comment on above: Order Comment: N Performed By: #### L 503.0105, L506.0250, L503.6550, L101.9900, L3100.3425, L509.6000, L501.5200 ####[facility] [address] [place], [address] Globulin (S) [Mass/Vol] 2.8 g/dL Normal 2.2-3.9 [facility] Comment on above: Order Comment: N Performed By: #### L 503.0105, L506.0250, L503.6550, L101.9900, L3100.3425, L509.6000, L501.5200 ####[facility] [address] [place], [address] GL RESULT,S Comment Normal . [facility] Comment on above: Order Comment: N Result Comment: No m onoclonality detected. Performed By: #### L 503.0105, L506.0250, L503.6550, L101.9900, L3100.3425, L509.6000, L501.5200 ####[facility] [address] [place], [address] IMMUNOGLOB A QN 169 mg/dL Normal 87-352 [facility] Comment on above: Order Comment: N Performed By: #### L 503.0105, L506.0250, L503.6550, L101.9900, L3100.3425, L509.6000, L501.5200 ####[facility] [address] [place], [address] IMMUNOGLOB G QN 789 mg/dL Normal 586-1602 [facility] Comment on above: Order Comment: N Performed By: #### L 503.0105, L506.0250, L503.6550, L101.9900, L3100.3425, L509.6000, L501.5200 ####[facility] [address] [place], [address] IMMUNOGLOB M QN 104 mg/dL Normal 26-217 [facility] Comment on above: Order Comment: N Performed By: #### L 503.0105, L506.0250, L503.6550, L101.9900, L3100.3425, L509.6000, L501.5200 ####[facility] [address] [place], [address] M-Isreal Not Observed Normal Not Observed [facility] Comment on above: Order Comment: N Performed By: #### L 503.0105, L506.0250, L503.6550, L101.9900, L3100.3425, L509.6000, L501.5200 ####[facility] [address] [place], [address] NOTE: Comment Normal . [facility] Comment on above: Order Comment: N Result Comment: Prot ein electrophoresis scan will follow via computer, mail, or roller checker delivery. Performed at: [address] [id number] Intelligence Specialist: Kimo Saldana PhD, Phone: [phone] Performed By: #### L 503.0105, L506.0250, L503.6550, L101.9900, L3100.3425, L509.6000, L501.5200 ####[facility] [address] [place], [place], [id number] Protein [Mass/Vol] 6.3 g/dL Normal 6.0-8.5 [facility] Comment on above: Order Comment: N Performed By: #### L 503.0105, L506.0250, L503.6550, L101.9900, L3100.3425, L509.6000, L501.5200 ####[facility] [address] [place], [address] Office Visit Reporton 2024 Office Visit Report [facility] [address] [place] [address] OFFICE VISIT Date of Service: 07/26/24 MR#: [id number] Acct: [id number] Patient: CHANEL PRASAD Rep #: [id number] : 1960 Provider: Dr. Dustin salazar MD Age/Sex: 64/F Location: [facility] Status: Signed Intake Vital Signs 06/04/24 11:29 06/21/24 13:05 07/26/24 13:05 Height 5 ft 4 in 5 ft 4 in 5 ft 4 in Weight: 164 lb 3 oz 167 lb 13 oz BMI 28.1 28.8 BP 120/82 H 110/70 Blood Pressure Location Rt brachial Lt brachial Position Sitting Sitting Respiration 17 17 Pulse 89 83 Pulse Source Monitor Monitor Temp 98.4 F 98.2 F Temp Source Temporal Temporal Pulse Oximetry (%) 96 96 Oxygen Delivery Method room air room air Intake Visit Reasons: B12 inject Chief Complaint: Allergies infliximab (From Remicade) Allergy (Severe, Verified 05/31/24 11:36) Anaphylaxis zinc Allergy (Severe, Verified 05/31/24 11:36) Throwing up budesonide Allergy (Mild, Verified 05/31/24 11:36) Upset Stomach alprazolam Allergy (Unknown, Verified 05/31/24 11:36) Other hydrocodone (From [place]) Allergy (Unknown, Verified 05/31/24 11:36) Other dicyclomine Allergy (Verified 05/31/24 11:36) Vomiting Lactobacillus rhamnosus GG (From [employer] Probiotics) Allergy (Verified 05/31/24 11:36) boils vancomycin Allergy (Verified 05/31/24 11:36) Other balsalazide Adverse Reaction (Severe, Verified 05/31/24 11:36) GI upset and Headache metronidazole (From Flagyl) Adverse Reaction (Severe, Verified 05/31/24 11:36) mental status changes codeine Adverse Reaction (Intermediate, Verified 05/31/24 11:36) Vomiting Penicillins Adverse Reaction (Mild, Verified 05/31/24 11:36) Itching phenazopyridine Adverse Reaction (Unknown, Verified 05/31/24 11:36) GI Upset azithromycin (From Zithromax Z-Del) Adverse Reaction (Verified 05/31/24 11:36) Vomiting mesalamine Adverse Reaction (Verified 05/31/24 11:36) Intolerance naproxen (From Naprosyn) Adverse Reaction (Verified 05/31/24 11:36) Other Sulfa (Sulfonamide Antibiotics) Adverse Reaction (Verified 05/31/24 11:36) Vomiting Office Meds cyanocobalamin (vitamin B-12) 1,000 mcg/mL injection solution Performing Provider: Dustin Manzo MD Performing Location: [facility] Administered by: Navya Garcia on 07/26/24 13:07 Dose Route Admin Location Dispensed Lot Number Expiration Date [facility] ufacturer 1,500 mcg IM left deltoid 1.5 mL [id number] 10/18/26 70109-724-88 SARAHLINDSAY REVA Comments: The patient presents for B12 injection for treatment of fatigue. She has fatigue. Her last B12 injection was of benefit for fatigue. The patient is awake and alert. B12 1500mcg IM was administered today. There were no complications. Assessment and Plan Assessment and Plan (1) Fatigue: Status: Chronic Qualifiers: Fatigue type: chronic, unspecified Qualified Code(s): R53.82 - Chronic fatigue, unspecified Orders: Orders Vitamin B12 Today R53.82 - Chronic fatigue, unspecified 07/26/24 1629 Date Dustin Manzo MD Cosigner Signature: Date (if applicable) CC: Normal [facility] CORTISOL SERUMon 07-23-2024 CORTISOL 8.10 ug/dL Normal 3.44-22.45 [facility] Comment on above: Result Comment: Adul t (AM) 5.27 - 22.45 ug/dL Adult (PM) 3.44 - 16.76 ug/dL Performed By: #### L 503.0105, L506.0250, L503.6550, L101.9900, L3100.3425, L509.6000, L501.5200 ####[facility] [address] [place], [address] Erythrocyte Sed Rateon 07-23 SED RATE 1 mm/hr Normal 0-30 [facility] Comment on above: Performed By: #### L 503.0105, L506.0250, L503.6550, L101.9900, L3100.3425, L509.6000, L501.5200 ####[facility] [address] [place], [address] Ferritinon 07-23-2024 Ferritin [Mass/Vol] 452 ng/mL High 8-252 [facility] Comment on above: Order Comment: N Performed By: #### L 503.0105, L506.0250, L503.6550, L101.9900, L3100.3425, L509.6000, L501.5200 ####[facility] [address] [place], [place], [id number] Folates, (Folic Acid)on FOLATES 19.70 ng/mL Normal 3.1-55.4 [facility] Comment on above: Order Comment: N Performed By: #### L 503.0105, L506.0250, L503.6550, L101.9900, L3100.3425, L509.6000, L501.5200 ####[facility] [address] [place], [place], [address] Gastroenterology Visit Repor ton 07-23-2024 Gastroenterology Visit Report [facility] [address] [place] [address] OFFICE VISIT Date of Service: 07/23/24 MR#: [id number] Acct: [id number] Name: CHANEL PRASAD Rep #: [id number] : 1960 Provider: Mike Bello, Age/Sex: 64/F Location: [facility] Status: Signed Intake Vital Signs 10/30/23 13:34 06/21/24 13:05 Height 5 ft 4 in 5 ft 4 in Intake Visit Reasons: 4 M FU Chief Complaint: Allergies infliximab (From Remicade) Allergy (Severe, Verified 05/31/24 11:36) Anaphylaxis zinc Allergy (Severe, Verified 05/31/24 11:36) Throwing up budesonide Allergy (Mild, Verified 05/31/24 11:36) Upset Stomach alprazolam Allergy (Unknown, Verified 05/31/24 11:36) Other hydrocodone (From [place]) Allergy (Unknown, Verified 05/31/24 11:36) Other dicyclomine Allergy (Verified 05/31/24 11:36) Vomiting Lactobacillus rhamnosus GG (From [employer]) Allergy (Verified 05/31/24 11:36) boils vancomycin Allergy (Verified 05/31/24 11:36) Other balsalazide Adverse Reaction (Severe, Verified 05/31/24 11:36) GI upset and Headache metronidazole (From Flagyl) Adverse Reaction (Severe, Verified 05/31/24 11:36) mental status changes codeine Adverse Reaction (Intermediate, Verified 05/31/24 11:36) Vomiting Penicillins Adverse Reaction (Mild, Verified 05/31/24 11:36) Itching phenazopyridine Adverse Reaction (Unknown, Verified 05/31/24 11:36) GI Upset azithromycin (From Zithromax Z-Del) Adverse Reaction (Verified 05/31/24 11:36) Vomiting mesalamine Adverse Reaction (Verified 05/31/24 11:36) Intolerance naproxen (From Naprosyn) Adverse Reaction (Verified 05/31/24 11:36) Other Sulfa (Sulfonamide Antibiotics) Adverse Reaction (Verified 05/31/24 11:36) Vomiting Medications ???Medication ???Instructions ???Recorded ???Confirmed ???Type valacyclovir 500 mg tablet 500 mg PO DAILY PRN Cold Sores 11/22/21 07/23/24 History (Valtrex) levothyroxine 25 mcg tablet 25 mcg PO DAILY 06/10/22 07/23/24 History acetaminophen 500 mg capsule 1,000 mg PO TID PRN pain 09/03/22 07/23/24 History diphenoxylate-atropine 2.5 1 tab PO BID PRN diarrhea #30 tabs 10/31/22 07/23/24 Rx mg-0.025 mg tablet (Lomotil) cyclobenzaprine 5 mg tablet 5 mg PO Q6H PRN muscle spasm 03/26/23 07/23/24 History dicyclomine 20 mg tablet 20 mg PO TID PRN abdominal pain 04/22/23 07/23/24 History mecobalamin (vitamin B12) 10,000 mcg subcut QMONTH 03/15/24 07/23/24 History mcg solution for injection ustekinumab 90 mg/mL subcutaneous 90 mg subcut Q4W #1 mL 03/16/24 07/23/24 Rx syringe (Stelara) cholecalciferol (vitamin D3) 1,250 1,250 mcg PO QWEEK #4 caps 05/31/24 07/23/24 Rx mcg (50,000 unit) capsule metaxalone 400 mg tablet 400 mg PO TID PRN muscle pain #90 05/31/24 07/23/24 Rx tabs celecoxib 100 mg capsule (Celebrex) 100 mg PO BID PRN pain #60 caps 07/23/24 07/23/24 Rx PFSH Medical History Multiple sclerosis History of steroid therapy Wears glasses Low iron Back pain WANG (generalized anxiety disorder) Elevated blood pressure reading in office without diagnosis of hypertension Anxiety and depression Clostridium difficile infection PONV (postoperative nausea and vomiting) Post-menopausal Anemia History of factor V Leiden mutation Dietary restriction Non-smoker Ulcerative colitis Preventative health care Hypothyroidism B12 deficiency Polycystic ovaries Irritable bowel syndrome Chronic bronchitis Carpal tunnel syndrome Back pain Seasonal allergies Internal bleeding hemorrhoids Factor 5 Leiden mutation, heterozygous Rectal bleed Hemorrhoids Surgical History History of rectal polypectomy History of esophagogastroduodenoscopy (EGD) History of carpal tunnel surgery of left wrist History of hemorrhoidectomy ( 10/2018) History of appendectomy History of oophorectomy History of hysterectomy History of colonoscopy ( 2016) Family History Grandmother CVA (cerebral vascular accident) Father Alcoholism Sister Alcoholism Asthma Factor V Leiden Mother Depression CVA (cerebral vascular accident) Other Anxiety Social History Smoking Status: Never smoker Electronic Cigarette Use: not used second hand exposure: No alcohol intake: never substance use type: does not use what type of physical activity do you participate in: walking frequency: daily duration: 15-30 minutes/day HPI HPI Chief Complaint: Details: CHANEL PRASAD, is a 64 F who presents to the office today for follow up. PMH ruslan???s thyroiditis/hypothyroid; MS; pt reports Factor V mutation. Established with p (more content not included)... Normal [facility] Magnesiumon 07-23-2024 Magnesium [Mass/Vol] 2.1 mg/dL Normal 1.6-2.6 [facility] Comment on above: Order Comment: N Performed By: #### L 503.0105, L506.0250, L503.6550, L101.9900, L3100.3425, L509.6000, L501.5200 ####[facility] [address] [place], [place], [address] Vitamin B12on 07-23-2024 Cobalamin (Vitamin B12) [Mass/Vol] 516 pg/mL Normal 211-911 [facility] Comment on above: Performed By: #### L 503.0105, L506.0250, L503.6550, L101.9900, L3100.3425, L509.6000, L501.5200 ####[facility] [address] [place], [place], [address] Office Visit Reporton 2023 Office Visit Report [facility] [address] [place] [address] OFFICE VISIT Date of Service: 06/21/24 MR#: [id number] Acct: [id number] Patient: CHANEL PRASAD Rep #: [id number] : 1960 Provider: Dr. Dustin salazar MD Age/Sex: 64/F Location: [facility]. Status: Signed Intake Vital Signs 04/20/24 13:40 06/04/24 11:29 06/21/24 13:05 Height 5 ft 4 in 5 ft 4 in 5 ft 4 in Weight: 164 lb 3 oz BMI 28.1 BP 120/82 H Blood Pressure Location Rt brachial Position Sitting Respiration 17 Pulse 89 Pulse Source Monitor Temp 98.4 F Temp Source Temporal Pulse Oximetry (%) 96 Oxygen Delivery Method room air Intake Visit Reasons: B12 inject Chief Complaint: Allergies infliximab (From Remicade) Allergy (Severe, Verified 05/31/24 11:36) Anaphylaxis zinc Allergy (Severe, Verified 05/31/24 11:36) Throwing up budesonide Allergy (Mild, Verified 05/31/24 11:36) Upset Stomach alprazolam Allergy (Unknown, Verified 05/31/24 11:36) Other hydrocodone (From [place]) Allergy (Unknown, Verified 05/31/24 11:36) Other dicyclomine Allergy (Verified 05/31/24 11:36) Vomiting Lactobacillus rhamnosus GG (From [employer] Probiotics) Allergy (Verified 05/31/24 11:36) boils vancomycin Allergy (Verified 05/31/24 11:36) Other balsalazide Adverse Reaction (Severe, Verified 05/31/24 11:36) GI upset and Headache metronidazole (From Flagyl) Adverse Reaction (Severe, Verified 05/31/24 11:36) mental status changes codeine Adverse Reaction (Intermediate, Verified 05/31/24 11:36) Vomiting Penicillins Adverse Reaction (Mild, Verified 05/31/24 11:36) Itching phenazopyridine Adverse Reaction (Unknown, Verified 05/31/24 11:36) GI Upset azithromycin (From Zithromax Z-Del) Adverse Reaction (Verified 05/31/24 11:36) Vomiting mesalamine Adverse Reaction (Verified 05/31/24 11:36) Intolerance naproxen (From Naprosyn) Adverse Reaction (Verified 05/31/24 11:36) Other Sulfa (Sulfonamide Antibiotics) Adverse Reaction (Verified 05/31/24 11:36) Vomiting Office Meds cyanocobalamin (vitamin B-12) 1,000 mcg/mL injection solution Performing Provider: Dustin Manzo MD Performing Location: [facility] Administered by: Navya Derrekblanche on 06/21/24 13:07 Dose Route Admin Location Dispensed Lot Number Expiration Date [facility] Gage ufacturer 1,000 mcg IM left deltoid 1 mL [id number] 08/20/26 20103-774-97 HIWOT ARDON Comments: The patient presents for B12 injection for treatment of fatigue. She has fatigue. Her last B12 injection was of benefit for fatigue. The patient is awake and alert. B12 1500mcg IM was administered today. There were no complications. Nursing Note 06-21-24 Patient was given B12 1500mcg IM Order was put in incorrectly. Assessment and Plan Assessment and Plan (1) Fatigue: Status: Chronic Qualifiers: Fatigue type: chronic, unspecified Qualified Code(s): R53.82 - Chronic fatigue, unspecified Orders: Orders Vitamin B12 06/21/24 R53.82 - Chronic fatigue, unspecified Plan Details Additional Comments: B12 1500 mcg IM was administered on 06/21/2024 for the patient's fatigue. 06/22/24 1437 Date [facility] Signature: Date (if applicable) CC: Normal [facility] Neurology Visit Reporton Neurology Visit Report [facility] [address] [place] [address], [address] [place] [address] OFFICE VISIT Date of Service: 05/31/24 MR#: [id number] Acct: [id number] Name: CHANEL PRASAD Rep #: [id number] : 1960 Provider: Dr. Dustin salazar MD Age/Sex: 64/F Location: [facility]. Status: Signed HPI [facility] Chief Complaint: Details: Interim History: Chanel returns for follow-up visit. She has a history of ulcerative colitis, hypothyroidism, positive factor V Leiden, hysterectomy in 2003 for endometriosis, unilateral oophorectomy for an enlarging lesion of the ovary, anxiety, and multiple sclerosis. In 2004, she began to experience left hand numbness, chest tingling and a burning sensation in the mouth and on evaluation at the [facility] in 2004, which included a head MRI and cervical spine MRI, she was diagnosed with multiple sclerosis and findings on MRI imaging supported this diagnosis. She did not have a lumbar puncture. Her MRIs did not reveal active plaques (abnormal enhancement) and subsequent MRIs of the brain did not reveal any major change in the white matter abnormalities noted. She was treated with Avonex for about 9 years. In 2013, she discontinued Avonex due to cognitive and mood side effects. She has not taken other disease modifying therapy for her multiple sclerosis. She has not received corticosteroids for her multiple sclerosis though following her diagnosis of ulcerative colitis in 2018, she was treated with prednisone for the ulcerative colitis (this was not tolerated due to a side effect of hyperactivity). She previously took alprazolam occasionally for anxiety. She does not have any symptoms relating to her positive factor V Leiden and she reported that no specific treatment for this was felt to be indicated. Testing for factor V Leiden was originally pursued due to her sister having a positive factor V Leiden. Over the years, she has had minor exacerbations of her multiple sclerosis manifesting with increased fatigue, muscle spasms and tingling. These episodes typically occurred if she was exposed to hot weather or performed strenuous activity and the exacerbations typically would resolve within 1 day; overall, she has not had significant progressive decline in her function apart from a prominence of fatigue and some impairment with fine motor control of the hands with activities such as buttoning buttons and she has not had any exacerbations within recent months. Her oral pain resolved. She has experienced a feeling of heaviness in the legs. Remicade for her ulcerative colitis was not tolerated. She had taken Entyvio and earlier in 2023 was started on Stelara and mesalamine for her ulcerative colitis. She is on levothyroxine for hypothyroidism. She has been taking vitamin D 1.25mg weekly for vitamin D deficiency and leg cramps. Her B12 level was previously noted to be near the low end of the normal range. B12 injections have been of benefit for her fatigue (1000 mcg dose was only modestly effective and her dose was increased to 1500 mcg IM). She has had occasional urinary stress incontinence. Diclofenac gel and naproxen were not of benefit for her musculoskeletal pain. Flurbiprofen was of modest benefit. She is presently not taking NSAIDs, except for acetaminophen, due to gastrointestinal side effects of these medications. She had a COVID-19 infection in July 2021. Due to claustrophobia and panic she was unable to tolerate having a head MRI even when the MRI was performed in an open MRI and pretreatment with clonazepam was given. She has had iron deficiency anemia. She did not tolerate iron tablets. She had a Monoferric 1000 mg IV infusion in July 2021 and this was of benefit for her fatigue. She received further Monoferric 1000 mg IV infusions in 2022 (the last in May 2023) for iron deficiency and this was of benefit for her fatigue. Her last serum iron (April 2024) was low and ferritin (April 2024) was high. She has low back pain that has radiated to the right hamstring region. In March 2021, she had right upper extremity and right-sided neck shingles and was treated with a course of valacyclovir and this resolved. She had prior left carpal tunnel surgery. She has bilateral hip pain. Pelvic and hip x-rays in 2020 were unremarkable. Mild lumbar degenerative joint disease is noted on lumbar x-rays (2020). A right lumbar paraspinal muscle trigger point injection in June 2022 provided only 1 to 2 days of pain reduction in this region. She sees a paint dipper, Dr. Joya; her lumbar injections were of only modest benefit. She is considering pursuing lumbar RFA treatment. She had seen a psychiatrist, Dr. Buck, for her anxiety and agoraphobia. Amitriptyline, buspirone and hydroxyzine were not well-tolerated. She is no longer seeing Dr. Buck. She sees a counselor. Folic acid supplementation has been of (more content not included)... Normal [facility] Office Visit Reporton 2023 Office Visit Report [facility] [address] [place] [address] OFFICE VISIT Date of Service: 05/20/24 MR#: [id number] Acct: [id number] Patient: CHANEL PRASAD Rep #: [id number] : 1960 Provider: Dr. Dustin salazar MD Age/Sex: 64/F Location: [facility]. Status: Signed Intake Vital Signs 03/17/24 15:59 04/20/24 13:40 05/20/24 11:41 Height 5 ft 4 in 5 ft 4 in 5 ft 4 in Weight: 163 lb 3 oz 163 lb 13 oz BMI 28.0 28.0 BP 128/80 H 124/80 H Blood Pressure Location Rt brachial Lt brachial Position Sitting Sitting Respiration 17 17 Pulse 97 83 Pulse Source Monitor Monitor Temp 98.2 F 98.6 F Temp Source Temporal Temporal Pulse Oximetry (%) 97 98 Oxygen Delivery Method room air room air Intake Visit Reasons: B12 inject Chief Complaint: Allergies infliximab (From Remicade) Allergy (Severe, Verified 03/17/24 15:56) Anaphylaxis zinc Allergy (Severe, Verified 03/17/24 15:56) Throwing up budesonide Allergy (Mild, Verified 03/17/24 15:56) Upset Stomach alprazolam Allergy (Unknown, Verified 03/17/24 15:56) Other hydrocodone (From [place]) Allergy (Unknown, Verified 03/17/24 15:56) Other dicyclomine Allergy (Verified 03/17/24 15:56) Vomiting Lactobacillus rhamnosus GG (From [employer] Pro[employer]) Allergy (Verified 03/17/24 15:56) boils vancomycin Allergy (Verified 03/17/24 15:56) Other balsalazide Adverse Reaction (Severe, Verified 03/17/24 15:56) GI upset and Headache metronidazole (From Flagyl) Adverse Reaction (Severe, Verified 03/17/24 15:56) mental status changes codeine Adverse Reaction (Intermediate, Verified 03/17/24 15:56) Vomiting Penicillins Adverse Reaction (Mild, Verified 03/17/24 15:56) Itching phenazopyridine Adverse Reaction (Unknown, Verified 03/17/24 15:56) GI Upset azithromycin (From Zithromax Z-Del) Adverse Reaction (Verified 03/17/24 15:56) Vomiting mesalamine Adverse Reaction (Verified 03/17/24 15:56) Intolerance naproxen (From Naprosyn) Adverse Reaction (Verified 03/17/24 15:56) Other Sulfa (Sulfonamide Antibiotics) Adverse Reaction (Verified 03/17/24 15:56) Vomiting Office Meds cyanocobalamin (vitamin B-12) 1,000 mcg/mL injection solution Performing Provider: Dustin Manzo MD Performing Location: [facility] Administered by: Navya Jose on 05/20/24 11:49 Dose Route Admin Location Dispensed Lot Number Expiration Date [facility] Man ufacturer 1,500 mcg IM left deltoid 1.5 mL [id number] 08/20/26 02769-263-47 SARAHLINDSAY ARDON Comments: The patient presents for B12 injection for treatment of fatigue. She has fatigue. Her last B12 injection was of benefit for fatigue. The patient is awake and alert. B12 1500mcg IM was administered today. There were no complications. Assessment and Plan Assessment and Plan (1) Fatigue: Status: Chronic Qualifiers: Fatigue type: chronic, unspecified Qualified Code(s): R53.82 - Chronic fatigue, unspecified Orders: Orders Vitamin B12 Today R53.82 - Chronic fatigue, unspecified 05/20/24 1640 Date Dustin Manzo MD Cosign Signature: Date (if applicable) CC: Normal [facility] CBC-Complete Blood Cnt No Di ffon 04-20-2024 Erythrocyte distribution width (RBC) [Ratio] 12.8 % Normal 11.6-14.6 [facility] Comment on above: Order Comment: Order Date: 04/20/24Order Info: [id number] - CBC Performed By: #### L 501.9553, L100.4066, L503.7242, L503.3182 ####[facility] [id number] [place], [place], [id number] Hematocrit (Bld) [Volume fraction] 42.2 % Normal 37-47 [facility] Comment on above: Order Comment: Order Date: 04/20/24Order Info: [id number] - CBC Performed By: #### L 501.9520, L100.0500, L503.6550, L503.6030 ####[facility] [address] [place], [address] Hemoglobin (Bld) [Mass/Vol] 13.4 g/dL Normal 12.0-15.0 [facility] Comment on above: Order Comment: Order Date: 04/20/24Order Info: [id number] - CBC Performed By: #### L 501.9520, L100.0500, L503.6550, L503.6030 ####[facility] [address] [place], [address] MCH (RBC) [Entitic mass] 30.7 pg Normal 27.0-32.0 [facility] Comment on above: Order Comment: Order Date: 04/20/24Order Info: [id number] - CBC Performed By: #### L 501.9520, L100.0500, L503.6550, L503.6030 ####[facility] [address] [place], [address] MCHC (RBC) [Mass/Vol] 31.8 g/dL Low 32-36 [facility] Comment on above: Order Comment: Order Date: 04/20/24Order Info: [id number] - CBC Performed By: #### L 501.9520, L100.0500, L503.6550, L503.6030 ####[facility] [address] [place], [address] MCV (RBC) [Entitic vol] 96.6 fL Normal 81-99 [facility] Comment on above: Order Comment: Order Date: 04/20/24Order Info: [id number] - CBC Performed By: #### L 501.9520, L100.0500, L503.6550, L503.6030 ####[facility] [address] [place], [address] Platelet mean volume (Bld) [Entitic vol] 10.1 fL Normal 6.2-12.0 [facility] Comment on above: Order Comment: Order Date: 04/20/24Order Info: [id number] - CBC Performed By: #### L 501.9520, L100.0500, L503.6550, L503.6030 ####[facility] [address] [place], [address] Platelets (Bld) [#/Vol] 251 10*3/uL Normal 150-450 [facility] Comment on above: Order Comment: Order Date: 04/20/24Order Info: [id number] - CBC Performed By: #### L 501.9520, L100.0500, L503.6550, L503.6030 ####[facility] [address] [place], [address] RBC (Bld) [#/Vol] 4.37 10*6/uL Normal 4.2-5.4 [facility] Comment on above: Order Comment: Order Date: 04/20/24Order Info: [id number] - CBC Performed By: #### L 501.9520, L100.0500, L503.6550, L503.6030 ####[facility] [address] [place], [address] RDW SD 45.8 fl High 35.1-43.9 [facility] Comment on above: Order Comment: Order Date: 04/20/24Order Info: [id number] - CBC Performed By: #### L 501.9520, L100.0500, L503.6550, L503.6030 ####[facility] [address] [place], [address] WBC (Bld) [#/Vol] 6.8 10*3/uL Normal 4.4-11.0 [facility] Comment on above: Order Comment: Order Date: 04/20/24Order Info: [id number] - CBC Performed By: #### L 501.9520, L100.0500, L503.6550, L503.6030 ####[facility] [address] [place], [address] Ferritinon 04-20-2024 Ferritin [Mass/Vol] 522 ng/mL High 8-252 [facility] Comment on above: Order Comment: Order Date: 04/20/24Order Info: [id number] - TSHOrder Info: [id number] - IBCOrder Info: [id number] - SHE Performed By: #### L 501.9520, L100.0500, L503.6550, L503.6030 ####[facility] [address] [place], [address] Iron+Iron Binding Capacityon 04-20-2024 Iron [Mass/Vol] 45 ug/dL Low 50-170 [facility] Comment on above: Order Comment: Order Date: 04/20/24Order Info: [id number] - TSHOrder Info: [id number] - IBCOrder Info: [id number] - SHE Performed By: #### L 501.9520, L100.0500, L503.6550, L503.6030 ####[facility] [address] [place], [address] IRON SATURATION 16.1 Normal 15.0-55.0 [facility] Comment on above: Order Comment: Order Date: 04/20/24Order Info: [id number] - TSHOrder Info: [id number] - IBCOrder Info: [id number] - SHE Performed By: #### L 501.9520, L100.0500, L503.6550, L503.6030 ####[facility] [address] [place], [address] TIBC 280 ug/dL Normal 250-450 [facility] Comment on above: Order Comment: Order Date: 04/20/24Order Info: [id number] - TSHOrder Info: [id number] - IBCOrder Info: [id number] - SHE Performed By: #### L 501.9520, L100.0500, L503.6550, L503.6030 ####[facility] [address] [place], [address] Office Visit Reporton 2023 Office Visit Report [facility] [address] [place] [address] OFFICE VISIT Date of Service: 04/20/24 MR#: [id number] Acct: [id number] Patient: CHANEL PRASAD Rep #: [id number] : 1960 Provider: Dr. Dustin salazar MD Age/Sex: 64/F Location: [facility] Status: Signed Intake Vital Signs 03/17/24 15:59 04/20/24 13:40 Height 5 ft 4 in 5 ft 4 in Weight: 166 lb 163 lb 3 oz BMI 28.5 28.0 BP 110/70 128/80 H Blood Pressure Location Lt brachial Rt brachial Position Sitting Sitting Respiration 17 17 Pulse 94 97 Pulse Source Monitor Monitor Temp 98.2 F 98.2 F Temp Source Temporal Temporal Pulse Oximetry (%) 97 97 Oxygen Delivery Method room air room air Intake Visit Reasons: B12 inject Chief Complaint: Allergies infliximab (From Remicade) Allergy (Severe, Verified 03/17/24 15:56) Anaphylaxis zinc Allergy (Severe, Verified 03/17/24 15:56) Throwing up budesonide Allergy (Mild, Verified 03/17/24 15:56) Upset Stomach alprazolam Allergy (Unknown, Verified 03/17/24 15:56) Other hydrocodone (From [place]) Allergy (Unknown, Verified 03/17/24 15:56) Other dicyclomine Allergy (Verified 03/17/24 15:56) Vomiting Lactobacillus rhamnosus GG (From [employer] Probiotics) Allergy (Verified 03/17/24 15:56) boils vancomycin Allergy (Verified 03/17/24 15:56) Other balsalazide Adverse Reaction (Severe, Verified 03/17/24 15:56) GI upset and Headache metronidazole (From Flagyl) Adverse Reaction (Severe, Verified 03/17/24 15:56) mental status changes codeine Adverse Reaction (Intermediate, Verified 03/17/24 15:56) Vomiting Penicillins Adverse Reaction (Mild, Verified 03/17/24 15:56) Itching phenazopyridine Adverse Reaction (Unknown, Verified 03/17/24 15:56) GI Upset azithromycin (From Zithromax Z-Del) Adverse Reaction (Verified 03/17/24 15:56) Vomiting mesalamine Adverse Reaction (Verified 03/17/24 15:56) Intolerance naproxen (From Naprosyn) Adverse Reaction (Verified 03/17/24 15:56) Other Sulfa (Sulfonamide Antibiotics) Adverse Reaction (Verified 03/17/24 15:56) Vomiting Office Meds cyanocobalamin (vitamin B-12) 1,000 mcg/mL injection solution Performing Provider: Dustin Manzo MD Performing Location: [facility] Administered by: Navya Garcia on 04/20/24 13:11 Dose Route Admin Location Dispensed Lot Number Expiration Date [facility] ufacturer 1,500 mcg IM right deltoid 1.5 mL [id number] 05/20/26 09467-084-57 [employer] [facility] Comments: The patient presents for B12 injection for treatment of fatigue. She has fatigue. Her last B12 injection was of benefit for fatigue. The patient is awake and alert. B12 1500mcg IM was administered today. There were no complications. Assessment and Plan Assessment and Plan (1) Fatigue: Status: Chronic Qualifiers: Fatigue type: chronic, unspecified Qualified Code(s): R53.82 - Chronic fatigue, unspecified Orders: Orders Vitamin B12 Today R53.82 - Chronic fatigue, unspecified 04/20/24 1455 Date Dustin Manzo MD Cosigner Signature: Date (if applicable) CC: Normal [facility] Thyroid Stim Hormone (TSH)on 04-20-2024 TSH 1.420 uIU/mL Normal 0.358-3.74 0 [facility] Comment on above: Order Comment: Order Date: 04/20/24Order Info: [id number] - TSHOrder Info: [id number] - IBCOrder Info: [id number] - SHE Performed By: #### L 501.9520, L100.0500, L503.6550, L503.6030 ####[facility] [address] [place], [address] Office Visit Reporton 2023 Office Visit Report [facility] [address] [place] [address] OFFICE VISIT Date of Service: 03/18/24 MR#: [id number] Acct: [id number] Patient: CHANEL PRASAD Rep #: [id number] : 1960 Provider: Dr. Dustin salazar MD Age/Sex: 64/F Location: [facility] Status: Signed Intake Vital Signs 02/04/24 09:30 02/12/24 14:32 03/17/24 15:59 Height 5 ft 4 in 5 ft 4 in 5 ft 4 in Weight: 166 lb BMI 28.5 BP 110/70 Blood Pressure Location Lt brachial Position Sitting Respiration 17 Pulse 94 Pulse Source Monitor Temp 98.2 F Temp Source Temporal Pulse Oximetry (%) 97 Oxygen Delivery Method room air Intake Visit Reasons: B12 inject Chief Complaint: Allergies infliximab (From Remicade) Allergy (Severe, Verified 03/17/24 15:56) Anaphylaxis zinc Allergy (Severe, Verified 03/17/24 15:56) Throwing up budesonide Allergy (Mild, Verified 03/17/24 15:56) Upset Stomach alprazolam Allergy (Unknown, Verified 03/17/24 15:56) Other hydrocodone (From [place]) Allergy (Unknown, Verified 03/17/24 15:56) Other dicyclomine Allergy (Verified 03/17/24 15:56) Vomiting Lactobacillus rhamnosus GG (From [employer]) Allergy (Verified 03/17/24 15:56) boils vancomycin Allergy (Verified 03/17/24 15:56) Other balsalazide Adverse Reaction (Severe, Verified 03/17/24 15:56) GI upset and Headache metronidazole (From Flagyl) Adverse Reaction (Severe, Verified 03/17/24 15:56) mental status changes codeine Adverse Reaction (Intermediate, Verified 03/17/24 15:56) Vomiting Penicillins Adverse Reaction (Mild, Verified 03/17/24 15:56) Itching phenazopyridine Adverse Reaction (Unknown, Verified 03/17/24 15:56) GI Upset azithromycin (From Zithromax Z-Del) Adverse Reaction (Verified 03/17/24 15:56) Vomiting mesalamine Adverse Reaction (Verified 03/17/24 15:56) Intolerance naproxen (From Naprosyn) Adverse Reaction (Verified 03/17/24 15:56) Other Sulfa (Sulfonamide Antibiotics) Adverse Reaction (Verified 03/17/24 15:56) Vomiting Office Meds cyanocobalamin (vitamin B-12) 1,000 mcg/mL injection solution Performing Provider: Dustin Manzo MD Performing Location: [facility] Administered by: Navya Garcia on 03/18/24 13:10 Dose Route Admin Location Dispensed Lot Number Expiration Date [facility] ufacturer 1,500 mcg IM left deltoid 1.5 mL [id number] 05/20/26 76530-340-48 [employer] [facility] Comments: The patient presents for B12 injection for treatment of fatigue. She has fatigue. Her last B12 injection was of benefit for fatigue. The patient is awake and alert. B12 1500mcg IM was administered today. There were no complications. Assessment and Plan Assessment and Plan (1) Fatigue: Status: Chronic Qualifiers: Fatigue type: chronic, unspecified Qualified Code(s): R53.82 - Chronic fatigue, unspecified Orders: Orders Vitamin B12 Today R53.82 - Chronic fatigue, unspecified 03/18/24 1601 Date Dustin Manzo MD Cosigner Signature: Date (if applicable) CC: Normal [facility] MR/BMS.BPon 03-17-2024 MR/BMS.BP [address], [address] [place] [address] OFFICE VISIT Date of Service: 03/17/24 MR#: [id number] Acct: [id number] Name: CHANEL PRASAD Rep #: [id number] : 1960 Provider: Dr. Dane Silverio se, DO Age/Sex: 64/F Location: [facility] Status: Signed Intake Vital Signs 02/12/24 14:32 03/17/24 15:56 03/17/24 15:59 Height 5 ft 4 in 5 ft 4 in 5 ft 4 in Weight: 166 lb BMI 28.5 BP 128/84 H 117/80 Blood Pressure Location Lt brachial Rt brachial Position Sitting Sitting Respiration 17 Pulse 95 96 Pulse Source Monitor Monitor Temp 98.2 F Pulse Oximetry (%) 97 Oxygen Delivery Method room air BP Intake Visit Reasons: Follow up Lay Out Former Required: No Accompanied by: Self Is patient in pain?: No Allergies infliximab (From Remicade) Allergy (Severe, Verified 03/17/24 15:56) Anaphylaxis zinc Allergy (Severe, Verified 03/17/24 15:56) Throwing up budesonide Allergy (Mild, Verified 03/17/24 15:56) Upset Stomach alprazolam Allergy (Unknown, Verified 03/17/24 15:56) Other hydrocodone (From [place]) Allergy (Unknown, Verified 03/17/24 15:56) Other dicyclomine Allergy (Verified 03/17/24 15:56) Vomiting Lactobacillus rhamnosus GG (From [employer] Probiotics) Allergy (Verified 03/17/24 15:56) boils vancomycin Allergy (Verified 03/17/24 15:56) Other balsalazide Adverse Reaction (Severe, Verified 03/17/24 15:56) GI upset and Headache metronidazole (From Flagyl) Adverse Reaction (Severe, Verified 03/17/24 15:56) mental status changes codeine Adverse Reaction (Intermediate, Verified 03/17/24 15:56) Vomiting Penicillins Adverse Reaction (Mild, Verified 03/17/24 15:56) Itching phenazopyridine Adverse Reaction (Unknown, Verified 03/17/24 15:56) GI Upset azithromycin (From Zithromax Z-Del) Adverse Reaction (Verified 03/17/24 15:56) Vomiting mesalamine Adverse Reaction (Verified 03/17/24 15:56) Intolerance naproxen (From Naprosyn) Adverse Reaction (Verified 03/17/24 15:56) Other Sulfa (Sulfonamide Antibiotics) Adverse Reaction (Verified 03/17/24 15:56) Vomiting Medications ???Medication ???Instructions ???Recorded ???Confirmed ???Type valacyclovir 500 mg tablet 500 mg PO DAILY PRN Cold Sores 11/22/21 03/17/24 History (Valtrex) levothyroxine 25 mcg tablet 25 mcg PO DAILY 06/10/22 03/17/24 History acetaminophen 500 mg capsule 1,000 mg PO TID PRN pain 09/03/22 03/17/24 History diphenoxylate-atropine 2.5 1 tab PO BID PRN diarrhea #30 tabs 10/31/22 03/17/24 Rx mg-0.025 mg tablet (Lomotil) baclofen 5 mg tablet 5 mg PO PRN PAIN 02/07/23 03/17/24 History cyclobenzaprine 5 mg tablet 5 mg PO Q6H PRN muscle spasm 03/26/23 03/17/24 History dicyclomine 20 mg tablet 20 mg PO TID PRN abdominal pain 04/22/23 03/17/24 History folic acid 1 mg tablet 1 mg PO DAILY #30 tabs 12/01/23 03/17/24 Rx cholecalciferol (vitamin D3) 1,250 1,250 mcg PO QWEEK 03/15/24 03/17/24 History mcg (50,000 unit) capsule mecobalamin (vitamin B12) 10,000 mcg subcut QMONTH 03/15/24 03/17/24 History mcg solution for injection ustekinumab 90 mg/mL subcutaneous 90 mg subcut Q4W #1 mL 03/16/24 03/17/24 Rx syringe (Stelara) Current gender identity: female Nurse's Note: Presents to the office today for follow up. [facility] Medical History Multiple sclerosis History of steroid therapy Wears glasses Low iron Back pain WANG (generalized anxiety disorder) Elevated blood pressure reading in office without diagnosis of hypertension Anxiety and depression Clostridium difficile infection PONV (postoperative nausea and vomiting) Post-menopausal Anemia History of factor V Leiden mutation Dietary restriction Non-smoker Ulcerative colitis Preventative health care Hypothyroidism B12 deficiency Polycystic ovaries Irritable bowel syndrome Chronic bronchitis Carpal tunnel syndrome Back pain Seasonal allergies Internal bleeding hemorrhoids Factor 5 Leiden mutation, heterozygous Rectal bleed Hemorrhoids Surgical History History of rectal polypectomy History of esophagogastroduodenoscopy (EGD) History of carpal tunnel surgery of left wrist History of hemorrhoidectomy ( 10/2018) History of appendectomy History of oophorectomy History of hysterectomy History of colonoscopy ( 2016) Family History Grandmother CVA (cerebral vascular accident) Father Alcoholism Sister Alcoholism Asthma Factor V Leiden Mother Depression CVA (cerebral vascular accident) Other Anxiety Social History current gender identity: female Smoking Status: Never smoker Electronic Cigarette Use: not used second hand exposure: No alc (more content not included)... Normal [facility] Gastroenterology Visit Repor ton 03-15-2024 Gastroenterology Visit Report [facility] [address] [place] [address] OFFICE VISIT Date of Service: 03/15/24 MR#: [id number] Acct: [id number] Name: CHANEL PRASAD Rep #: [id number] : 1960 Provider: Mike Bello DO Age/Sex: 64/F Location: [facility] Status: Signed Intake Vital Signs 10/30/23 13:34 02/12/24 14:32 Height 5 ft 4 in 5 ft 4 in Intake Visit Reasons: 4 M FU Chief Complaint: Allergies infliximab (From Remicade) Allergy (Severe, Verified 02/04/24 09:37) Anaphylaxis zinc Allergy (Severe, Verified 02/04/24 09:37) Throwing up budesonide Allergy (Mild, Verified 02/04/24 09:37) Upset Stomach alprazolam Allergy (Unknown, Verified 02/04/24 09:37) Other hydrocodone (From [place]) Allergy (Unknown, Verified 02/04/24 09:37) Other dicyclomine Allergy (Verified 02/04/24 09:37) Vomiting Lactobacillus rhamnosus GG (From [employer] Probiotics) Allergy (Verified 02/04/24 09:37) boils vancomycin Allergy (Verified 02/04/24 09:37) Other balsalazide Adverse Reaction (Severe, Verified 02/04/24 09:37) GI upset and Headache metronidazole (From Flagyl) Adverse Reaction (Severe, Verified 02/04/24 09:37) mental status changes codeine Adverse Reaction (Intermediate, Verified 02/04/24 09:37) Vomiting Penicillins Adverse Reaction (Mild, Verified 02/04/24 09:37) Itching phenazopyridine Adverse Reaction (Unknown, Verified 02/04/24 09:37) GI Upset azithromycin (From Zithromax Z-Del) Adverse Reaction (Verified 02/04/24 09:37) Vomiting mesalamine Adverse Reaction (Verified 02/04/24 09:37) Intolerance naproxen (From Naprosyn) Adverse Reaction (Verified 02/04/24 09:37) Other Sulfa (Sulfonamide Antibiotics) Adverse Reaction (Verified 02/04/24 09:37) Vomiting Medications ???Medication ???Instructions ???Recorded ???Confirmed ???Type valacyclovir 500 mg tablet 500 mg PO DAILY PRN Cold Sores 11/22/21 03/15/24 History (Valtrex) levothyroxine 25 mcg tablet 25 mcg PO DAILY 06/10/22 03/15/24 History acetaminophen 500 mg capsule 1,000 mg PO TID PRN pain 09/03/22 03/15/24 History diphenoxylate-atropine 2.5 1 tab PO BID PRN diarrhea #30 tabs 10/31/22 03/15/24 Rx mg-0.025 mg tablet (Lomotil) baclofen 5 mg tablet 5 mg PO PRN PAIN 02/07/23 03/15/24 History cyclobenzaprine 5 mg tablet 5 mg PO Q6H PRN muscle spasm 03/26/23 03/15/24 History dicyclomine 20 mg tablet 20 mg PO TID PRN abdominal pain 04/22/23 03/15/24 History ustekinumab 90 mg/mL subcutaneous 90 mg subcut Q8W #1 mL 07/25/23 03/15/24 Rx syringe (Stelara) folic acid 1 mg tablet 1 mg PO DAILY #30 tabs 12/01/23 03/15/24 Rx cholecalciferol (vitamin D3) 1,250 1,250 mcg PO QWEEK 03/15/24 History mcg (50,000 unit) capsule mecobalamin (vitamin B12) 10,000 mcg subcut QMONTH 03/15/24 03/15/24 History mcg solution for injection PFSH Medical History (Updated 02/04/24 @ 11:[address] Dustin Manzo MD) Multiple sclerosis History of steroid therapy Wears glasses Low iron Back pain WANG (generalized anxiety disorder) Elevated blood pressure reading in office without diagnosis of hypertension Anxiety and depression Clostridium difficile infection PONV (postoperative nausea and vomiting) Post-menopausal Anemia History of factor V Leiden mutation Dietary restriction Non-smoker Ulcerative colitis Preventative health care Hypothyroidism B12 deficiency Polycystic ovaries Irritable bowel syndrome Chronic bronchitis Carpal tunnel syndrome Back pain Seasonal allergies Internal bleeding hemorrhoids Factor 5 Leiden mutation, heterozygous Rectal bleed Hemorrhoids Surgical History (Updated 12/02/23 @ 12:14 by Alma Mcclain) History of rectal polypectomy History of esophagogastroduodenoscopy (EGD) History of carpal tunnel surgery of left wrist History of hemorrhoidectomy ( 10/2018) History of appendectomy History of oophorectomy History of hysterectomy History of colonoscopy ( 2016) Family History Grandmother CVA (cerebral vascular accident) Father Alcoholism Sister Alcoholism Asthma Factor V Leiden Mother Depression CVA (cerebral vascular accident) Other Anxiety Social History Smoking Status: Never smoker Electronic Cigarette Use: not used second hand exposure: No alcohol intake: never substance use type: does not use what type of physical activity do you participate in: walking frequency: daily duration: 15-30 minutes/day HPI HPI Chief Complaint: Details: CHANEL PRASAD, is a 64 F who presents to the office today for follow up. PMH ruslan???s thyroiditis/hypothyroid; MS; pt reports Factor V mutation. Established with psychology. PSH hemorrhoidectomy; right ovary removal 1986; total hysterectomy 1999.? (more content not included)... Normal [facility] Absolute lymphocyte counton 06-10-2022 Lymphocytes Auto (Unsp spec) [#/Vol] 2.22 10*3/uL 0.83-4.51 [facility] Work Phone: Basophil percentageon 2021 Basophils/100 WBC (Bld) 1.9 % 0-1 [facility] Work Phone: Bilirubin [Mass/Vol] 0.60 mg/dL 0.20-1.00 [facility] Work Phone: Comment on above: For patients on eltr ombopag therapy, use of Dimension [place] TBIL is not recommended. Chloride [Moles/Vol] 105 mmol/L 98-107 [facility] Work Phone: Eosinophils/100 WBC (Bld) 6.4 % 0-5 [facility] Work Phone: Glucose [Mass/Vol] 95 mg/dL 74-106 [facility] Work Phone: Neutrophils (Bld) [#/Vol] 2.2 10*3/uL 2.0-7.7 [facility] Work Phone: Neutrophils/100 WBC (Bld) 40.4 % 47-70 [facility] Work Phone: Potassium [Moles/Vol] 3.7 mmol/L 3.5-5.1 [facility] Work Phone: Protein [Mass/Vol] 6.9 g/dL 6.4-8.2 [facility] Work Phone: Sodium [Moles/Vol] 138 mmol/L 136-145 [facility] Work Phone: WBC (Bld) [#/Vol] 5.3 10*3/uL 4.4-11.0 [facility] Work Phone: Blood erythrocytes count (nu mber/volume)on 06-10-2022 RBC (Bld) [#/Vol] 4.06 10*6/uL 4.2-5.4 [facility] Work Phone: Blood hemoglobin measurement (mass/volume)on 06-10-2022 Hemoglobin (Bld) [Mass/Vol] 9.4 g/dL 12.0-15.0 [facility] Work Phone: Blood lymphocytes/100 leukoc yteson 06-10-2022 Lymphocytes/100 WBC (Bld) 41.7 % 19-41 [facility] Work Phone: Blood monocytes/100 leukocyt eson 06-10-2022 Monocytes/100 WBC (Bld) 9.4 % 0-10 [facility] Work Phone: Blood platelet mean volumeon 06-10-2022 Platelet mean volume (Bld) [Entitic vol] 10.2 fL 6.2-12.0 [facility] Work Phone: Determination of erythrocyte mean corpuscular volume (MCV)on 06-10-2022 MCV (RBC) [Entitic vol] 79.8 fL 81-99 [facility] Work Phone: Hematocrit Auto (Bld) [Volum e fraction]on 06-10-2022 Hematocrit (Bld) [Volume fraction] 32.4 % 37-47 [facility] Work Phone: Laboratory - Chemistry and C hemistry - challengeon 06-10-2022 ALP [Catalytic activity/Vol] 70 U/L 45-117 [facility] Work Phone: ALT [Catalytic activity/Vol] 15 U/L 13-56 [facility] Work Phone: [phone] CO2 [Moles/Vol] 26.0 mmol/L 21.0-32.0 [facility] Work Phone: Globulin (S) [Mass/Vol] 3.5 g/dL 2.2-4.2 [facility] Work Phone: Urea nitrogen/Creatinine [Mass ratio] 18.6 mg/mg 10-20 [facility] Work Phone: Laboratory - Hematology and Cell countson 06-10-2022 Erythrocyte distribution width (RBC) [Entitic vol] 45.4 fL 35.1-43.9 [facility] Work Phone: Erythrocyte distribution width (RBC) [Ratio] 15.7 % 11.6-14.6 [facility] Work Phone: Immature granulocytes/100 WBC (Bld) 0.200 % 0.0-0.9 [facility] Work Phone: Comment on above: IG% - Immature Granu locytes (promyelocytes, myelocytes and metamyelocytes) > 1% indicates that a LEFT SHIFT is Present. MCH (RBC) [Entitic mass] 23.2 pg 27.0-32.0 [facility] Work Phone: Nucleated RBC/100 WBC (Bld) [Ratio] 0 % 0-5 [facility] Work Phone: MCHC Auto (RBC) [Mass/Vol]on 06-10-2022 MCHC (RBC) [Mass/Vol] 29.0 g/dL 32-36 [facility] Work Phone: No Panel Informationon 06-10 Estimated GFR (MDRD) Amer 93 mL/min >60 [facility] Work Phone: Comment on above: GFR Calc Estimated GFR (MDRD) Non-Af Amer 77 mL/min >60 [facility] Work Phone: Comment on above: Non- GFR Calc Thyroid Stimulating Hormone (TSH) 1.62 uIU/mL 0.358-3.74 [facility] Work Phone: Platelets bldon 06-10-2022 Platelets (Bld) [#/Vol] 362 10*3/uL 150-450 [facility] Work Phone: Serum or plasma albumin selvin urement (mass/volume)on 06-10-2022 Albumin [Mass/Vol] 3.4 g/dL 3.2-5.0 [facility] Work Phone: Serum or plasma albumin/glob ulin mass ratioon 06-10-2022 Albumin/Globulin [Mass ratio] 1.0 {ratio} 0.9-2.4 [facility] Work Phone: Serum or plasma calcium selvin urement (mass/volume)on 06-10-2022 Calcium [Mass/Vol] 8.8 mg/dL 8.5-10.1 [place] [facility] Work Phone: Serum or plasma creatinine m easurement (mass/volume)on 06-10-2022 Creatinine [Mass/Vol] 0.80 mg/dL 0.55-1.02 [address] [address] [facility] Work Phone: Comment on above: The validity of the calculated GFR & GFRAA in patients over 70 years has not been determined. Clinical correlation is essential. Serum or plasma urea nitroge n measurement (mass/volume)on 06-10-2022 Urea nitrogen [Mass/Vol] 15 mg/dL 7-18 [facility] Work Phone: Thin prep Papanicolaou smear with manual screeningon 06-10-2022 Thin prep Papanicolaou smear with manual screening 11 U/L 15-37 [facility] Work Phone: Thin prep Papanicolaou smear with manual screening 7 5-15 [facility] Work Phone: Sarah 06-02-2022 [facility] Telephone ([facility]) CHANEL PRASAD ([id number]) 1960 F Date Time Provider Department 06/02/22 ETELVINA LEE During your visit today, we recorded the following information about you: Alok Garcia LPN 06/02/2022 3:50 PM Signed ----- Message from Etelvina Lee APRN.RENEWABLE ENERGY TECHNICIAN sent at 06/02/2022 12:25 PM EST ----- Urine culture did not show clear evidence of infection. however it appears sample may have been contaminated with skin bacteria during collection. If not improving, recommend follow up with PCP. AKASH Wiley LPN 06/02/2022 3:53 PM Signed Phone call placed patient advised (see prior provider encounter) Patient verbalized understanding, agreed with plan of care. Alok Garcia LPN Allergies As of Date: 06/02/2022 Noted Allergy Reaction AZITHROMYCIN 09/11/2015 11 - Vomiting BALSALAZIDE 03/13/2020 5 - Intolerance Comments: Nausea, body aches, fatigue BUDESONIDE 03/13/2020 5 - Intolerance Comments: Heart palpitations, elevated glucose, nausea CODEINE 09/24/2004 14 - Other: See Comments Comments: Headache, itchy, nausea. FLAGYL (METRONIDAZOLE) 02/18/2020 1 - Mental Status Change LEXAPRO (ESCITALOPRAM OXALATE) 02/18/2020 14 - Other: See Comments Comments: Skin crawling MESALAMINE 02/18/2020 5 - Intolerance Comments: Upset stomach, headace, nausea, flu-like symptoms PENICILLINS 09/09/2017 9 - Itching PHENAZOPYRIDINE 02/18/2020 8 - GI Upset PROBIOTIC (LACTOBACILLUS ACIDOPHI*02/18/2020 16 - Unknown SULFA (SULFONAMIDE ANTIBIOTICS) 02/18/2020 5 - Intolerance SULFUR 02/18/2020 14 - Other: See Comments Comments: Stomach irritation VICODIN (HYDROCODONE-ACETAMINOPHE* 8 - GI Upset WELLBUTRIN (BUPROPION HCL) 02/18/2020 14 - Other: See Comments Comments: Not effective XANAX (ALPRAZOLAM) 02/18/2020 14 - Other: See Comments Comments: Nausea ZINC 10/15/2010 16 - Unknown ZOLOFT (SERTRALINE) 02/18/2020 14 - Other: See Comments Comments: Insomnia, jittery Date Reviewed: 05/31/2022 Reviewed by: Alok Garcia LPN - Fully Assessed Reason for Visit: Results [95] Prescriptions as of 06/02/2022 - nystatin-triamcinolone (MYCOLOG) ointment Apply sparingly to perineum twice daily for irritation/infection. - dicyclomine (BENTYL) 20 mg tablet take 1 tablet by mouth before meals and at bedtime - ustekinumab (STELARA) 130 mg/26 mL injection Inject 78 mL intravenously one time only for 1 dose. - ustekinumab (STELARA) 90 mg/mL injection Inject 1 mL subcutaneously every 8 weeks. - predniSONE (DELTASONE) 10 mg tablet Take 2 tablets by mouth once daily. - vedolizumab (ENTYVIO) 300 mg injection 300mg Intravenous every six weeks. - polyethylene glycol 3350 (MIRALAX, GLYCOLAX) 17 gram/dose powder Use as directed for Miralax / Gatorade Bowel Prep Kit - Gatorade Sports Drink Use as directed for Miralax / Gatorade Bowel Prep Kit - Bisacodyl (DULCOLAX) 5 mg tab Use as directed for Miralax / Gatorade Bowel Prep Kit - valACYclovir (VALTREX) 1 gram Take 1,000 mg by mouth once daily. 7 days - traMADol (ULTRAM) 50 mg tablet Take 50 mg by mouth every 6 hours as needed for pain. - vedolizumab (ENTYVIO) 300 mg injection 300mg Intravenous every 8 weeks. - naproxen sodium (ALEVE) 220 mg tablet Take 220 mg by mouth as needed. uses 3-4 times /month for low back/extremity pain - calcium carbonate (TUMS ORAL) Take 1,000 mg by mouth once daily. - acetaminophen (TYLENOL) 325 mg tablet Take 2 tablets by mouth every 4 hours as needed (for pain.). - Fluticasone Furoate 27.5 mcg/actuation nasal spray Use 2 Sprays in each nostril once daily. - levothyroxine (SYNTHROID) 50 mcg tablet Take 50 mcg by mouth once daily. Problem List As Of Date 06/02/2022 Noted Resolved MULTIPLE SCLEROSIS [G35] 10/16/2004 SKIN SENSATION DISTURB [R20.9] 10/16/2004 Personal history of colonic polyps [Z86.010] Tension headache [G44.209] Depression [F32.A] Sciatic pain [M54.30] Diarrhea [R19.7] 11/28/2010 Ruslan's thyroiditis [E06.3] 08/03/2015 Muscle cramping [R25.2] 08/03/2015 Vitamin D deficiency [E55.9] 08/03/2015 Encounter for colonoscopy due to history of sukumar*01/29/2017 GERD (gastroesophageal reflux disease) [K21.9] Ulcerative colitis (HCC) [K51.90] 03/15/2020 Drug allergy [Z88.9] 03/15/2020 Major depressive disorder, recurrent episode, m*07/02/2021 Psychological factor affecting physical conditi*07/02/2021 Encounter Status:Closed by ALOK GARCIA LPN on 06/02/22 Normal [facility] BACTERIAL VAGINOSIS AMPLIFIC ATIONon 05-31-2022 Lactobacillus crispatus+gasseri+boris senii + Gardnerella vaginalis + Atopobium vaginae rRNA EULALIA+probe Ql (Vag fld) Negative Normal Negative for bacterial vaginosis [facility] Comment on above: Order Comment: Speci men Type: SWABOrdering Facility: [facility] Address: [address] [place] [address] Performed By: #### C VTV, BVAMP ####[facility] LABCLIA [id number] [place] [address] [place] Bacteria Ur Culton 2 Bacteria identified Cx Nom (U) ORGANISM ID: 1 <10,000 CFU/ml Mixed microbiota No further workup. Mixed microbiota can be due to???urine???contamination with skin bacteria at time of collection or presence of a long-term urinary catheter. If a new culture is needed, please consider re-education of the patient on proper midstream collection technique or straight catheterization for???urine???collection. Normal [facility] Comment on above: Performed By: #### 6 30-4 ####[facility] LABCLIA [id number] [place] [address] [place] JENNIFER / TRICHOMONAS AMPLIF ICATIONon 05-31-2022 JENNIFER / TRICHOMONAS AMPLIFICATION JENNIFER SPECIES GROUP RNA: Negative for Jennifer species JENNIFER GLABRATA RNA: Negative for Jennifer glabrata TRICH VAG AMPLIFICATION RNA: Negative for Trichomonas vaginalis by amplification Normal [facility] Comment on above: Performed By: #### C VTV, BVAMP ####[facility] LABCLIA [id number] [facility] [id number] [place], [place] [id number] [place] CNOVon 05-31-2022 CNOV Office Visit ([facility]WSTR ) CHANEL PRASAD ([id number]) 1960 F Date Time Provider Department 05/31/22 4:45 PM MARYJANE LINDSAY [facility] During your visit today, we recorded the following information about you: Temperature Pulse Respiration Blood pressure 98.2 degrees 118/minute 18/minute 146/78 Weight 75.4 kg Maryjane Lindsay PA-C 05/31/2022 6:43 PM Signed This note was created using [employer]. Subjective Chanel Prasad is a 62 year old female. HPI Patient presents with urinary frequency and dysuria. She feels very irritated in the perineal area. She has to wear a pad and thinks maybe that is irritating her skin. She did have C. difficile recently and was treated in the hospital. She has a history of ulcerative colitis and also was treated for yeast recently with Diflucan on May 10. She denies any vaginal itching or discharge. Not sexually active. No back pain. No vomiting. Review of Systems Constitutional: Negative. HENT: Negative. Respiratory: Negative. Cardiovascular: Negative. Gastrointestinal: Negative. Genitourinary: Positive for frequency and vaginal pain. Negative for urgency. Musculoskeletal: Negative. Skin: Negative. All other systems reviewed and are negative. PAST MEDICAL HISTORY Diagnosis Date Colitis Depression Diarrhea Diverticulosis GERD (gastroesophageal reflux disease) Ruslan's thyroiditis Hemorrhoids History of colon polyps History of lower GI bleeding Hypothyroidism Multiple sclerosis (HCC) Personal history of colonic polyps monitored by colonoscopy q 5 years Sciatic pain Tension headache Vitamin D deficiency Current Outpatient Medications Medication Sig Dispense Refill ustekinumab (STELARA) 90 mg/mL injection Inject 1 mL subcutaneously every 8 weeks. 1 mL 11 vedolizumab (ENTYVIO) 300 mg injection 300mg Intravenous every six weeks. 1 Each 5 valACYclovir (VALTREX) 1 gram Take 1,000 mg by mouth once daily. 7 days vedolizumab (ENTYVIO) 300 mg injection 300mg Intravenous every 8 weeks. 300 mL 5 calcium carbonate (TUMS ORAL) Take 1,000 mg by mouth once daily. acetaminophen (TYLENOL) 325 mg tablet Take 2 tablets by mouth every 4 hours as needed (for pain.). 2 tablet 5 Fluticasone Furoate 27.5 mcg/actuation nasal spray Use 2 Sprays in each nostril once daily. 15.8 mL 5 levothyroxine (SYNTHROID) 50 mcg tablet Take 50 mcg by mouth once daily. nystatin-triamcinolone (MYCOLOG) ointment Apply sparingly to perineum twice daily for irritation/infection. 30 g 0 dicyclomine (BENTYL) 20 mg tablet take 1 tablet by mouth before meals and at bedtime 120 tablet 2 ustekinumab (STELARA) 130 mg/26 mL injection Inject 78 mL intravenously one time only for 1 dose. 78 mL 0 predniSONE (DELTASONE) 10 mg tablet Take 2 tablets by mouth once daily. (Patient not taking: Reported on 05/31/2022) 100 tablet 1 polyethylene glycol 3350 (MIRALAX, GLYCOLAX) 17 gram/dose powder Use as directed for Miralax / Gatorade Bowel Prep Kit (Patient not taking: Reported on 05/31/2022) 238 g 0 Gatorade Sports Drink Use as directed for Miralax / Gatorade Bowel Prep Kit (Patient not taking: Reported on 05/31/2022) Bisacodyl (DULCOLAX) 5 mg tab Use as directed for Miralax / Gatorade Bowel Prep Kit (Patient not taking: Reported on 05/31/2022) 4 tablet 0 traMADol (ULTRAM) 50 mg tablet Take 50 mg by mouth every 6 hours as needed for pain. naproxen sodium (ALEVE) 220 mg tablet Take 220 mg by mouth as needed. uses 3-4 times /month for low back/extremity pain No current facility-administered medications for this visit. PAST SURGICAL HISTORY Procedure Laterality Date APPENDECTOMY COLONOSCOPY 03/12/[address], [address] Bridger Jaffe COLONOSCOPY 11/28/2010 Diverticulosis, hemorrhoids. Dr. Kirill Conte. COLONOSCOPY 11/2018 Chronic active colitis- [facility] COLONOSCOPY 02/17/2020 chronic active ulcerative colitis EGD 12/03/2018 esopohagitis, active chronic gastritis, mild chronic duodenitis HEMORRHOID SURGERY HX 10/2018 OOPHORECTOMY PARTIAL/TOTAL UNI/BI 1987 right ovary TOTAL ABDOMINAL HYSTERECT W/WO RMVL TUBE OVARY 1999 FAMILY HISTORY Problem Relation Age of Onset other (No family history of MS) Other Diabetes Mother Heart Mother Stroke Mother Diabetes Brother half brother Heart Brother half brother Social History Tobacco Use Smoking status: Never Smokeless tobacco: Never Vaping Use Vaping Use: Never used Substance Use Topics Alcohol use: No Drug use: Not Currently Comment: smoked marijuana when she was younger Objective BP 146/78 Pulse 118 Temp 36.8 ?C (98.2 ?F) Resp 18 Wt 75.4 kg (166 lb 3.2 oz) SpO2 98% BMI 28.37 kg/m? Physical Exam Vitals reviewed. Constitutional: Appearance: Normal appearance. HENT: Head: Normocephalic and atraumatic. Genitourinary: Comments: Pat (more content not included)... Normal [facility] UA DIP, URINE (POC)on 2021 BILIRUBIN UA (POCT) Negative Negative [facility] CLARITY UA (POCT) Slightly Cloudy Cl [facility] COLOR UA (POCT) Other [facility] GLUCOSE UA (POCT) Negative Negative mg/dL [facility] HEMOGLOBIN/BLOOD UA (POCT) Negative Negative [facility] KETONE UA (POCT) Trace Negative mg/dL [facility] LEUKOCYTES UA (POCT) Negative Negative [facility] NITRITE UA (POCT) Negative Negative [facility] PH UA (POCT) 5.5 4.5 - 8.0 [facility] Protein Ql (U) Negative Negative mg/dL [facility] SPECIFIC GRAVITY UA (POCT) 1.025 1.005 - 1.030 [facility] UROBILINOGEN UA (POCT) 0.2 E.U./dL Normal E.U./dL [facility] Absolute lymphocyte counton 03-20-2022 Lymphocytes Auto (Unsp spec) [#/Vol] 1.18 10*3/uL 0.83-4.51 [facility] Work Phone: Basophil percentageon 2021 Lactate [Moles/Vol] 1.0 mmol/L 0.4-2.0 [facility] Work Phone: Basophils/100 WBC (Bld) 0.5 % 0-1 [facility] Work Phone: Bilirubin [Mass/Vol] 0.40 mg/dL 0.20-1.00 [facility] Work Phone: Comment on above: For patients on eltr ombopag therapy, use of Dimension [place] TBIL is not recommended. Chloride [Moles/Vol] 110 mmol/L 98-107 [facility] Work Phone: Eosinophils/100 WBC (Bld) 0.0 % 0-5 [facility] Work Phone: Glucose [Mass/Vol] 133 mg/dL 74-106 [facility] Work Phone: Comment on above: Fasting Glucose resu lt greater than or equal to 126 mg/dL suggests DIABETES MELLITUS per A.D.A. criteria. Neutrophils (Bld) [#/Vol] 2.7 10*3/uL 2.0-7.7 [facility] Work Phone: Neutrophils/100 WBC (Bld) 63.2 % 47-70 [facility] Work Phone: Potassium [Moles/Vol] 4.0 mmol/L 3.5-5.1 [facility] Work Phone: Protein [Mass/Vol] 5.6 g/dL 6.4-8.2 [facility] Work Phone: Sodium [Moles/Vol] 139 mmol/L 136-145 [facility] Work Phone: WBC (Bld) [#/Vol] 4.3 10*3/uL 4.4-11.0 [facility] Work Phone: Blood erythrocytes count (nu mber/volume)on 03-20-2022 RBC (Bld) [#/Vol] 3.33 10*6/uL 4.2-5.4 [facility] Work Phone: Blood hemoglobin measurement (mass/volume)on 03-20-2022 Hemoglobin (Bld) [Mass/Vol] 8.5 g/dL 12.0-15.0 [facility] Work Phone: [phone] Blood lymphocytes/100 leukoc yteson 03-20-2022 Lymphocytes/100 WBC (Bld) 27.3 % 19-41 [facility] Work Phone: Blood monocytes/100 leukocyt eson 03-20-2022 Monocytes/100 WBC (Bld) 6.7 % 0-10 [facility] Work Phone: [phone] Blood platelet mean volumeon 03-20-2022 Platelet mean volume (Bld) [Entitic vol] 9.0 fL 6.2-12.0 [facility] Work Phone: Determination of erythrocyte mean corpuscular volume (MCV)on 03-20-2022 MCV (RBC) [Entitic vol] 85.3 fL 81-99 [facility] Work Phone: Erythrocyte sedimentation ra katrin 03-20-2022 ESR (Bld) [Velocity] 16 mm/h 0-30 [facility] Work Phone: Hematocrit Auto (Bld) [Volum e fraction]on 03-20-2022 Hematocrit (Bld) [Volume fraction] 28.4 % 37-47 [facility] Work Phone: INR in Blood by Coagulation assayon 03-20-2022 INR Coag (Bld) [Relative time] 1.1 {INR} [facility] Work Phone: Laboratory - Chemistry and C hemistry - challengeon 03-20-2022 ALP [Catalytic activity/Vol] 85 U/L 45-117 [facility] Work Phone: ALT [Catalytic activity/Vol] 10 U/L 13-56 [facility] Work Phone: CO2 [Moles/Vol] 25.0 mmol/L 21.0-32.0 [facility] Work Phone: Globulin (S) [Mass/Vol] 3.5 g/dL 2.2-4.2 [facility] Work Phone: Urea nitrogen/Creatinine [Mass ratio] 13.3 mg/mg 10-20 [facility] Work Phone: Laboratory - Coagulationon 0 03-20-2022 aPTT Coag (Bld) [Time] s 24.1-36.2 [facility] Work Phone: PT Coag (PPP) [Time] 13.8 s 11.7-14.9 [facility] Work Phone: Laboratory - Hematology and Cell countson 03-20-2022 Erythrocyte distribution width (RBC) [Entitic vol] 48.4 fL 35.1-43.9 [facility] Work Phone: Erythrocyte distribution width (RBC) [Ratio] 15.5 % 11.6-14.6 [facility] Work Phone: Immature granulocytes/100 WBC (Bld) 2.300 % 0.0-0.9 [facility] Work Phone: Comment on above: IG% - Immature Granu locytes (promyelocytes, myelocytes and metamyelocytes) > 1% indicates that a LEFT SHIFT is Present. MCH (RBC) [Entitic mass] 25.5 pg 27.0-32.0 [facility] Work Phone: Nucleated RBC/100 WBC (Bld) [Ratio] 0 % 0-5 [facility] Work Phone: MCHC Auto (RBC) [Mass/Vol]on 03-20-2022 MCHC (RBC) [Mass/Vol] 29.9 g/dL 32-36 [facility] Work Phone: No Panel Informationon 03-20 Miscellaneous Test See comment [facility] Work Phone: Comment on above: TEST RESULT LIMITSCM V qPCR Not Detected Not DetectedThis test was developed and its performance characteristicsdetermined by [employer]. It has not been cleared or approvedby the U.S. Food and Drug Administration. Results should be used in conjunction with clinical findings, and should not form the sole basis for a diagnosis or treatment decision. [facility]FOR[facility] AT [facility] ORIGINAL REPORT ON FILE IN LAB CONTAINS ADDITIONAL TEST SITE INFORMATION. Estimated Creatinine Clearance Calc 75.02 ml/min [facility] Work Phone: Estimated GFR (MDRD) Amer 114 mL/min >60 [facility] Work Phone: Comment on above: GFR Calc Estimated GFR (MDRD) Non-Af Amer 94 mL/min >60 [facility] Work Phone: Comment on above: Non- GFR Calc Thyroid Stimulating Hormone (TSH) 0.33 uIU/mL 0.358-3.74 [facility] Work Phone: Platelets bldon 03-20-2022 Platelets (Bld) [#/Vol] 536 10*3/uL 150-450 [facility] Work Phone: Serum or plasma C reactive p rotein measurement (mass/volume)on 03-20-2022 CRP [Mass/Vol] 98.40 mg/L 0.0-3.0 [facility] Work Phone: Comment on above: C-Reactive Protein ( CRP) provides useful information for thediagnosis, therapy and monitoring of inflammatory processesand associated diseases. For the evaluation of Relative Riskfor Cardiovascular Disease, a High Sensitivity CRP (HSCRP)should be ordered. Serum or plasma albumin selvin urement (mass/volume)on 03-20-2022 Albumin [Mass/Vol] 2.1 g/dL 3.2-5.0 [facility] Work Phone: Serum or plasma albumin/glob ulin mass ratioon 03-20-2022 Albumin/Globulin [Mass ratio] 0.6 {ratio} 0.9-2.4 [facility] Work Phone: Serum or plasma calcium selvin urement (mass/volume)on 03-20-2022 Calcium [Mass/Vol] 8.5 mg/dL 8.5-10.1 [facility] Work Phone: Serum or plasma creatinine m easurement (mass/volume)on 03-20-2022 Creatinine [Mass/Vol] 0.68 mg/dL 0.55-1.02 [facility] Work Phone: Comment on above: The validity of the calculated GFR & GFRAA in patients over 70 years has not been determined. Clinical correlation is essential. Serum or plasma transthyreti n measurement (mass/volume)on 03-20-2022 Prealbumin [Mass/Vol] 7.8 mg/dL 20.0-40.0 [facility] Work Phone: Serum or plasma urea nitroge n measurement (mass/volume)on 03-20-2022 Urea nitrogen [Mass/Vol] 9 mg/dL 7-18 [facility] Work Phone: Thin prep Papanicolaou smear with manual screeningon 03-20-2022 Thin prep Papanicolaou smear with manual screening 9 U/L 15-37 [facility] Work Phone: Thin prep Papanicolaou smear with manual screening 4 5-15 [facility] Work Phone: Absolute lymphocyte counton 03-19-2022 Lymphocytes Auto (Unsp spec) [#/Vol] 1.52 10*3/uL 0.83-4.51 [facility] Work Phone: Basophil percentageon 2021 Lactate [Moles/Vol] 0.9 mmol/L 0.4-2.0 [facility] Work Phone: Basophil percentage 5-10 SEEN /hpf 0-5 [facility] Work Phone: Basophils/100 WBC (Bld) 0.6 % 0-1 [facility] Work Phone: Bilirubin [Mass/Vol] 0.60 mg/dL 0.20-1.00 [facility] Work Phone: Comment on above: For patients on eltr ombopag therapy, use of Dimension [place] TBIL is not recommended. Chloride [Moles/Vol] 106 mmol/L 98-107 [facility] Work Phone: Eosinophils/100 WBC (Bld) 1.9 % 0-5 [facility] Work Phone: Glucose [Mass/Vol] 115 mg/dL 74-106 [facility] Work Phone: Comment on above: Fasting Glucose resu lt from 100 to 125 mg/dL suggests IMPAIRED HOMEOSTASIS per A.D.A. criteria. Neutrophils (Bld) [#/Vol] 8.5 10*3/uL 2.0-7.7 [facility] Work Phone: Neutrophils/100 WBC (Bld) 75.1 % 47-70 [facility] Work Phone: Potassium [Moles/Vol] 3.8 mmol/L 3.5-5.1 [facility] Work Phone: Protein [Mass/Vol] 6.6 g/dL 6.4-8.2 [facility] Work Phone: [phone] Sodium [Moles/Vol] 140 mmol/L 136-145 [facility] Work Phone: WBC (Bld) [#/Vol] 11.3 10*3/uL 4.4-11.0 [facility] Work Phone: Bilirubin Test strip Ql (U)o n 03-19-2022 Bilirubin Ql (U) Negative Negative [facility] Work Phone: Blood erythrocytes count (nu mber/volume)on 03-19-2022 RBC (Bld) [#/Vol] 3.92 10*6/uL 4.2-5.4 [facility] Work Phone: Blood hemoglobin measurement (mass/volume)on 03-19-2022 Hemoglobin (Bld) [Mass/Vol] 10.3 g/dL 12.0-15.0 [facility] Work Phone: Blood lymphocytes/100 leukoc yteson 03-19-2022 Lymphocytes/100 WBC (Bld) 13.5 % 19-41 [facility] Work Phone: Blood monocytes/100 leukocyt eson 03-19-2022 Monocytes/100 WBC (Bld) 7.4 % 0-10 [facility] Work Phone: Blood platelet mean volumeon 03-19-2022 Platelet mean volume (Bld) [Entitic vol] 8.7 fL 6.2-12.0 [facility] Work Phone: Determination of erythrocyte mean corpuscular volume (MCV)on 03-19-2022 MCV (RBC) [Entitic vol] 85.5 fL 81-99 [facility] Work Phone: Direct bilirubinon 2 Bilirubin.direct [Mass/Vol] 0.14 mg/dL 0.00-0.30 [facility] Work Phone: Erythrocyte sedimentation ra katrin 03-19-2022 ESR (Bld) [Velocity] 42 mm/h 0-30 [facility] Work Phone: Hematocrit Auto (Bld) [Volum e fraction]on 03-19-2022 Hematocrit (Bld) [Volume fraction] 33.5 % 37-47 [facility] [facility] Work Phone: [phone] Ketones Test strip Ql (U)on 03-19-2022 Ketones Ql (U) 15 mg/dl Negative [facility] Work Phone: Laboratory - Chemistry and C hemistry - challengeon 03-19-2022 ALP [Catalytic activity/Vol] 111 U/L 45-117 [facility] Work Phone: [phone] ALT [Catalytic activity/Vol] 13 U/L 13-56 [facility] Work Phone: CO2 [Moles/Vol] 28.0 mmol/L 21.0-32.0 [facility] Work Phone: Globulin (S) [Mass/Vol] 4.0 g/dL 2.2-4.2 [facility] Work Phone: Lipase [Catalytic activity/Vol] 54 U/L 73-393 [facility] Work Phone: Urea nitrogen/Creatinine [Mass ratio] 17.3 mg/mg 10-20 [facility] Work Phone: Laboratory - Hematology and Cell countson 03-19-2022 Erythrocyte distribution width (RBC) [Entitic vol] 48.3 fL 35.1-43.9 [facility] Work Phone: Erythrocyte distribution width (RBC) [Ratio] 15.5 % 11.6-14.6 [facility] Work Phone: Immature granulocytes/100 WBC (Bld) 1.500 % 0.0-0.9 [facility] Work Phone: Comment on above: IG% - Immature Granu locytes (promyelocytes, myelocytes and metamyelocytes) > 1% indicates that a LEFT SHIFT is Present. MCH (RBC) [Entitic mass] 26.3 pg 27.0-32.0 [facility] Work Phone: Nucleated RBC/100 WBC (Bld) [Ratio] 0 % 0-5 [facility] Work Phone: [phone] MCHC Auto (RBC) [Mass/Vol]on 03-19-2022 MCHC (RBC) [Mass/Vol] 30.7 g/dL 32-36 [facility] Work Phone: Mucus LM Ql (Urine sed)on Mucus Ql (Urine sed) 0 SEEN /hpf [facility] Work Phone: [phone] Nitrite Test strip Ql (U)on 03-19-2022 Nitrite Ql (U) Negative Negative [facility] Work Phone: No Panel Informationon 03-19 Stool Calprotectin 327 ug/g 0-120 [facility] Work Phone: Comment on above: Concentration Interp retation Follow-Up<16 - 50 ug/g Normal None>50 -120 ug/g Borderline Re-evaluate in 4-6 weeks >120 ug/g Abnormal Repeat as clinically indicatedPerformed at: - [facility] [id number] Director: Alecia Seals MD, Phone: [phone] Estimated Creatinine Clearance Calc 49.05 ml/min [facility] Work Phone: Estimated GFR (MDRD) Amer 69 mL/min >60 [facility] Work Phone: Comment on above: GFR Calc Estimated GFR (MDRD) Non-Af Amer 57 mL/min >60 [facility] Work Phone: Comment on above: Non- GFR Calc Platelets bldon 03-19-2022 Platelets (Bld) [#/Vol] 584 10*3/uL 150-450 [facility] Work Phone: Protein Test strip Ql (U)on 03-19-2022 Protein Ql (U) 30 mg/dl Negative [facility] Work Phone: Serum or plasma C reactive p rotein measurement (mass/volume)on 03-19-2022 CRP [Mass/Vol] 115.00 mg/L 0.0-3.0 [facility] Work Phone: Comment on above: C-Reactive Protein ( CRP) provides useful information for thediagnosis, therapy and monitoring of inflammatory processesand associated diseases. For the evaluation of Relative Riskfor Cardiovascular Disease, a High Sensitivity CRP (HSCRP)should be ordered. Serum or plasma albumin selvin urement (mass/volume)on 03-19-2022 Albumin [Mass/Vol] 2.6 g/dL 3.2-5.0 [facility] Work Phone: Serum or plasma calcium selvin urement (mass/volume)on 03-19-2022 Calcium [Mass/Vol] 8.9 mg/dL 8.5-10.1 [facility] Work Phone: Serum or plasma creatinine m easurement (mass/volume)on 03-19-2022 Creatinine [Mass/Vol] 1.04 mg/dL 0.55-1.02 [facility] Work Phone: Comment on above: The validity of the calculated GFR & GFRAA in patients over 70 years has not been determined. Clinical correlation is essential. Serum or plasma urea nitroge n measurement (mass/volume)on 03-19-2022 Urea nitrogen [Mass/Vol] 18 mg/dL 7-18 [facility] Work Phone: Squamous epithelial cells de tection in urine sediment by light microscopyon 03-19-2022 Epithelial cells.squamous LM Ql (Urine sed) 0-5 SEEN /hpf 5-10 [facility] Work Phone: Thin prep Papanicolaou smear with manual screeningon 03-19-2022 Thin prep Papanicolaou smear with manual screening 10 U/L 15-37 [facility] Work Phone: Thin prep Papanicolaou smear with manual screening 6 5-15 [facility] Work Phone: Urine blood detectionon 02-20 0 RBC Ql (U) Negative Negative [facility] Work Phone: RBC Ql (U) 0 SEEN /hpf 0-5 [facility] Work Phone: Urine clarityon 03-19-2022 Clarity (U) Sl. Cloudy Clear [facility] Work Phone: Urine color determinationon 03-19-2022 Color (U) Yellow Yellow [facility] Work Phone: Urine glucose detectionon Glucose Ql (U) Normal mg/dl Normal [facility] Work Phone: Urine leukocyte esterase det ection by dipstickon 03-19-2022 Leukocyte esterase Test strip Ql (U) 25 /ul Negative [facility] Work Phone: Urine pHon 03-19-2022 pH (U) 6.0 [pH] 5.0 - 8.0 [facility] Work Phone: Urine sediment bacteria coun t by microscopy (number/high power field)on 03-19-2022 Bacteria LM.HPF (Urine sed) [#/Area] 1 /[HPF] None Seen [facility] Work Phone: Urine specific gravity measu rementon 03-19-2022 Specific gravity (U) [Rel density] 1.020 1.002-1.03 0 [facility] Work Phone: Urobilinogen Auto test strip Ql (U)on 03-19-2022 Urobilinogen Ql (U) Normal mg/dl Normal [facility] Work Phone: Absolute lymphocyte counton 03-04-2022 Lymphocytes Auto (Unsp spec) [#/Vol] 1.96 10*3/uL 0.83-4.51 [facility] Work Phone: Basophil percentageon 2021 Basophil percentage 0-5 SEEN /hpf 0-5 [facility] Work Phone: Basophils/100 WBC (Bld) 0.7 % 0-1 [facility] Work Phone: Bilirubin [Mass/Vol] 0.40 mg/dL 0.20-1.00 [facility] Work Phone: Comment on above: For patients on eltr ombopag therapy, use of Dimension [place] TBIL is not recommended. Chloride [Moles/Vol] 108 mmol/L 98-107 [facility] Work Phone: Eosinophils/100 WBC (Bld) 3.0 % 0-5 [facility] Work Phone: Glucose [Mass/Vol] 126 mg/dL 74-106 [facility] Work Phone: Comment on above: Fasting Glucose resu lt greater than or equal to 126 mg/dL suggests DIABETES MELLITUS per A.D.A. criteria. Neutrophils (Bld) [#/Vol] 4.2 10*3/uL 2.0-7.7 [facility] Work Phone: Neutrophils/100 WBC (Bld) 57.0 % 47-70 [facility] Work Phone: Potassium [Moles/Vol] 3.6 mmol/L 3.5-5.1 [facility] Work Phone: Protein [Mass/Vol] 6.6 g/dL 6.4-8.2 [facility] Work Phone: Sodium [Moles/Vol] 140 mmol/L 136-145 [facility] Work Phone: [phone] WBC (Bld) [#/Vol] 7.4 10*3/uL 4.4-11.0 [facility] Work Phone: Bilirubin Test strip Ql (U)o n 03-04-2022 Bilirubin Ql (U) Negative Negative [facility] Work Phone: Blood erythrocytes count (nu mber/volume)on 03-04-2022 RBC (Bld) [#/Vol] 4.27 10*6/uL 4.2-5.4 [facility] Work Phone: Blood hemoglobin measurement (mass/volume)on 03-04-2022 Hemoglobin (Bld) [Mass/Vol] 11.4 g/dL 12.0-15.0 [facility] Work Phone: [phone] Blood lymphocytes/100 leukoc yteson 03-04-2022 Lymphocytes/100 WBC (Bld) 26.3 % 19-41 [facility] Work Phone: [phone] Blood monocytes/100 leukocyt eson 03-04-2022 Monocytes/100 WBC (Bld) 12.2 % 0-10 [facility] Work Phone: [phone] Blood platelet mean volumeon 03-04-2022 Platelet mean volume (Bld) [Entitic vol] 8.7 fL 6.2-12.0 [facility] Work Phone: Determination of erythrocyte mean corpuscular volume (MCV)on 03-04-2022 MCV (RBC) [Entitic vol] 87.8 fL 81-99 [facility] Work Phone: Hematocrit Auto (Bld) [Volum e fraction]on 03-04-2022 Hematocrit (Bld) [Volume fraction] 37.5 % 37-47 [facility] Work Phone: Ketones Test strip Ql (U)on 03-04-2022 Ketones Ql (U) Negative Negative [facility] Work Phone: Laboratory - Chemistry and C hemistry - challengeon 03-04-2022 ALP [Catalytic activity/Vol] 87 U/L 45-117 [facility] Work Phone: ALT [Catalytic activity/Vol] 15 U/L 13-56 [facility] Work Phone: CO2 [Moles/Vol] 28.0 mmol/L 21.0-32.0 [facility] Work Phone: Globulin (S) [Mass/Vol] 3.9 g/dL 2.2-4.2 [facility] Work Phone: Lipase [Catalytic activity/Vol] 76 U/L 73-393 [facility] Work Phone: Urea nitrogen/Creatinine [Mass ratio] 21.3 mg/mg 10-20 [facility] Work Phone: Laboratory - Hematology and Cell countson 03-04-2022 Erythrocyte distribution width (RBC) [Entitic vol] 49.7 fL 35.1-43.9 [facility] Work Phone: Erythrocyte distribution width (RBC) [Ratio] 15.6 % 11.6-14.6 [facility] Work Phone: Immature granulocytes/100 WBC (Bld) 0.800 % 0.0-0.9 [facility] Work Phone: Comment on above: IG% - Immature Granu locytes (promyelocytes, myelocytes and metamyelocytes) > 1% indicates that a LEFT SHIFT is Present. MCH (RBC) [Entitic mass] 26.7 pg 27.0-32.0 [facility] Work Phone: Nucleated RBC/100 WBC (Bld) [Ratio] 0 % 0-5 [facility] Work Phone: MCHC Auto (RBC) [Mass/Vol]on 03-04-2022 MCHC (RBC) [Mass/Vol] 30.4 g/dL 32-36 [facility] Work Phone: Mucus LM Ql (Urine sed)on Mucus Ql (Urine sed) 0 SEEN /hpf [facility] Work Phone: Nitrite Test strip Ql (U)on 03-04-2022 Nitrite Ql (U) Negative Negative [facility] Work Phone: No Panel Informationon 03-04 Estimated Creatinine Clearance Calc 54.27 ml/min [facility] Work Phone: Estimated GFR (MDRD) Amer 78 mL/min >60 [facility] Work Phone: Comment on above: GFR Calc Estimated GFR (MDRD) Non-Af Amer 64 mL/min >60 [facility] Work Phone: Comment on above: Non- GFR Calc Platelets bldon 03-04-2022 Platelets (Bld) [#/Vol] 427 10*3/uL 150-450 [facility] Work Phone: Protein Test strip Ql (U)on 03-04-2022 Protein Ql (U) 30 mg/dl Negative [facility] Work Phone: Serum or plasma albumin selvin urement (mass/volume)on 03-04-2022 Albumin [Mass/Vol] 2.7 g/dL 3.2-5.0 [facility] Work Phone: Serum or plasma albumin/glob ulin mass ratioon 03-04-2022 Albumin/Globulin [Mass ratio] 0.7 {ratio} 0.9-2.4 [facility] Work Phone: Serum or plasma calcium selvin urement (mass/volume)on 03-04-2022 Calcium [Mass/Vol] 8.8 mg/dL 8.5-10.1 [facility] Work Phone: Serum or plasma creatinine m easurement (mass/volume)on 03-04-2022 Creatinine [Mass/Vol] 0.94 mg/dL 0.55-1.02 [facility] Work Phone: Comment on above: The validity of the calculated GFR & GFRAA in patients over 70 years has not been determined. Clinical correlation is essential. Serum or plasma urea nitroge n measurement (mass/volume)on 03-04-2022 Urea nitrogen [Mass/Vol] 20 mg/dL 7-18 [facility] Work Phone: Squamous epithelial cells de tection in urine sediment by light microscopyon 03-04-2022 Epithelial cells.squamous LM Ql (Urine sed) 0-5 SEEN /hpf 5-10 [facility] Work Phone: Thin prep Papanicolaou smear with manual screeningon 03-04-2022 Thin prep Papanicolaou smear with manual screening 7 U/L 15-37 [facility] Work Phone: Thin prep Papanicolaou smear with manual screening 4 5-15 [facility] Work Phone: Urine blood detectionon 02-18 RBC Ql (U) 10 /ul Negative [facility] Work Phone: RBC Ql (U) 0 SEEN /hpf 0-5 [facility] Work Phone: Urine clarityon 03-04-2022 Clarity (U) Clear Clear [facility] Work Phone: Urine color determinationon 03-04-2022 Color (U) Yellow Yellow [facility] Work Phone: Urine glucose detectionon Glucose Ql (U) Normal mg/dl Normal [facility] Work Phone: Urine leukocyte esterase det ection by dipstickon 03-04-2022 Leukocyte esterase Test strip Ql (U) 25 /ul Negative [facility] Work Phone: Urine pHon 03-04-2022 pH (U) 7.0 [pH] 5.0 - 8.0 [facility] Work Phone: Urine sediment bacteria coun t by microscopy (number/high power field)on 03-04-2022 Bacteria LM.HPF (Urine sed) [#/Area] 0 /[HPF] None Seen [facility] Work Phone: Urine specific gravity measu rementon 03-04-2022 Specific gravity (U) [Rel density] 1.005 1.002-1.03 0 [facility] Work Phone: Urobilinogen Auto test strip Ql (U)on 03-04-2022 Urobilinogen Ql (U) Normal mg/dl Normal [facility] Work Phone: CBC W Auto Differential pane l (Bld)on 02-26-2022 Basophils (Bld) [#/Vol] 0.05 10*3/uL Normal <0.11 [facility] Comment on above: Order Comment: Speci men Type: BLOOD SPECIMENOrdering Facility: [facility] Address: [address] [place] [address] Performed By: #### 5 7021-8 ####[facility] LABCLIA [id number] [place] [address] [place] Basophils/100 WBC (Bld) 0.8 % Normal [facility] Comment on above: Order Comment: Speci men Type: BLOOD SPECIMENOrdering Facility: [facility] Address: [address] [place] [address] Performed By: #### 5 7021-8 ####[facility] LABCLIA [id number] [place] [address] [place] Differential cell count method Nom (Bld) Auto Normal [facility] Comment on above: Order Comment: Speci men Type: BLOOD SPECIMENOrdering Facility: [facility] Address: [address] [place], [place] [address] Performed By: #### 5 7021-8 ####[facility]CLIA [id number] [place] [address] [place] Eosinophils (Bld) [#/Vol] 0.03 10*3/uL Normal <0.46 [facility] Comment on above: Order Comment: Speci men Type: BLOOD SPECIMENOrdering Facility: [facility] Address: [address] [place], [place] [address] Performed By: #### 5 7021-8 ####[facility]CLIA [id number] [place] [address] [place] Eosinophils/100 WBC (Bld) 0.5 % Normal [facility] Comment on above: Order Comment: Speci men Type: BLOOD SPECIMENOrdering Facility: [facility] Address: [address] [place], [place] [address] Performed By: #### 5 7021-8 ####[facility]CLIA [id number] [place] [address] [place] Erythrocyte distribution width (RBC) [Ratio] 15.5 % High 11.5-15.0 [facility] Comment on above: Order Comment: Speci men Type: BLOOD SPECIMENOrdering Facility: [facility] Address: [address] [place] [address] Performed By: #### 5 7021-8 ####[facility]CLIA [id number] [place] [address] [place] Hematocrit (Bld) [Volume fraction] 37.2 % Normal 36.0-46.0 [facility] Comment on above: Order Comment: Speci men Type: BLOOD SPECIMENOrdering Facility: [facility] Address: [address] [place], [place] [address] Performed By: #### 5 7021-8 ####[facility]CLIA [id number] [place] [address] [place] Hemoglobin (Bld) [Mass/Vol] 11.3 g/dL Low 11.5-15.5 [facility] Comment on above: Order Comment: Speci men Type: BLOOD SPECIMENOrdering Facility: [facility] Address: [address] [place] [address] Performed By: #### 5 7021-8 ####[facility] LABIA [id number] [place] [address] [place] IMMATURE GRAN % 1.5 % Normal [facility] Comment on above: Order Comment: Speci men Type: BLOOD SPECIMENOrdering Facility: [facility] Address: [address] [place] [address] Performed By: #### 5 7021-8 ####[facility] LABIA [id number] [place] [address] [place] IMMATURE GRAN ABS 0.10 k/uL High <0.10 [facility] Comment on above: Order Comment: Speci men Type: BLOOD SPECIMENOrdering Facility: [facility] Address: [address] [place] [address] Performed By: #### 5 7021-8 ####[facility] LABIA [id number] [place] [address] [place] Lymphocytes (Bld) [#/Vol] 1.26 10*3/uL Normal 1.00-4.00 [facility] Comment on above: Order Comment: Speci men Type: BLOOD SPECIMENOrdering Facility: [facility] Address: [address] [place], [place] [address] Performed By: #### 5 7021-8 ####[facility] LABIA [id number] [place] [address] [place] Lymphocytes/100 WBC (Bld) 19.2 % Normal [facility] Comment on above: Order Comment: Speci men Type: BLOOD SPECIMENOrdering Facility: [facility] Address: [address] [place], [place] [address] Performed By: #### 5 7021-8 ####[facility] LABIA [id number] [address] [place] MCH (RBC) [Entitic mass] 26.7 pg Normal 26.0-34.0 [facility] Comment on above: Order Comment: Speci men Type: BLOOD SPECIMENOrdering Facility: [facility] Address: [address] [place], [place] [address] Performed By: #### 5 7021-8 ####[facility] [id number] [address] [place] MCHC (RBC) [Mass/Vol] 30.4 g/dL Low 30.5-36.0 [facility] Comment on above: Order Comment: Speci men Type: BLOOD SPECIMENOrdering Facility: [facility] Address: [address] [place], [place] [address] Performed By: #### 5 7021-8 ####[facility] [id number] [address] [place] MCV (RBC) [Entitic vol] 87.9 fL Normal 80.0-100.0 [facility] Comment on above: Order Comment: Speci men Type: BLOOD SPECIMENOrdering Facility: [facility] Address: [address] [place], [place] [address] Performed By: #### 5 7021-8 ####[facility] [id number] [place] [address] [place] Monocytes (Bld) [#/Vol] 0.35 10*3/uL Normal <0.87 [facility] Comment on above: Order Comment: Speci men Type: BLOOD SPECIMENOrdering Facility: [facility] Address: [address] [place] [address] Performed By: #### 5 7021-8 ####[facility]CLIA [id number] [place] [address] [place] Monocytes/100 WBC (Bld) 5.3 % Normal [facility] Comment on above: Order Comment: Speci men Type: BLOOD SPECIMENOrdering Facility: [facility] Address: [address] [place], [place] [address] Performed By: #### 5 7021-8 ####[facility]CLIA [id number] [place] [address] [place] Neutrophils (Bld) [#/Vol] 4.78 10*3/uL Normal 1.45-7.50 [facility] Comment on above: Order Comment: Speci men Type: BLOOD SPECIMENOrdering Facility: [facility] Address: [address] [place], [place] [address] Performed By: #### 5 7021-8 ####[facility]CLIA [id number] [place] [address] [place] Neutrophils/100 WBC (Bld) 72.7 % Normal [facility] Comment on above: Order Comment: Speci men Type: BLOOD SPECIMENOrdering Facility: [facility] Address: [address] [place] [address] Performed By: #### 5 7021-8 ####[facility]CLIA [id number] [place] [address] [place] Nucleated RBC (Bld) [#/Vol] 0.02 10*3/uL High <0.01 [facility] Comment on above: Order Comment: Speci men Type: BLOOD SPECIMENOrdering Facility: [facility] Address: [address] [place] [address] Performed By: #### 5 7021-8 ####[facility] LABCLIA [id number] [address] [address] [place] Nucleated RBC/100 WBC (Bld) [Ratio] 0.3 /100 WBC Normal [facility] Comment on above: Order Comment: Speci men Type: BLOOD SPECIMENOrdering Facility: [facility] Address: [address] [place], [place] [address] Performed By: #### 5 7021-8 ####[facility]CLIA [id number] [place] [address] [place] Platelet mean volume (Bld) [Entitic vol] 9.4 fL Normal 9.0-12.7 [facility] Comment on above: Order Comment: Speci men Type: BLOOD SPECIMENOrdering Facility: [facility] Address: [address] [place], [place] [address] Performed By: #### 5 7021-8 ####[facility]CLIA [id number] [place] [address] [place] Platelets (Bld) [#/Vol] 398 10*3/uL Normal 150-400 [facility] Comment on above: Order Comment: Speci men Type: BLOOD SPECIMENOrdering Facility: [facility] Address: [address] [place], [place] [address] Performed By: #### 5 7021-8 ####[facility]CLIA [id number] [place] [address] [place] RBC (Bld) [#/Vol] 4.23 10*6/uL Normal 3.90-5.20 [facility] Comment on above: Order Comment: Speci men Type: BLOOD SPECIMENOrdering Facility: [facility] Address: [address] [place], [place] [address] Performed By: #### 5 7021-8 ####[facility]CLIA [id number] [place] [address] [place] WBC (Bld) [#/Vol] 6.57 10*3/uL Normal 3.70-11.00 [facility] Comment on above: Order Comment: Speci men Type: BLOOD SPECIMENOrdering Facility: [facility] Address: [address] [place], [place] [address] Performed By: #### 5 7021-8 ####[facility] LABCLIA [id number] [place] [address] [place] CRP SerPl-mCncon 02-26-2022 CRP [Mass/Vol] 5.4 mg/dL High <0.9 [facility] Comment on above: Order Comment: Speci men Type: BLOOD SPECIMENOrdering Facility: [facility] Address: [address] [place], [place] [address] Performed By: #### 2 4323-8, 1987-11 ####[facility] LABIA [id number] [place] [address] [place] Comprehensive metabolic 2000 panelon 02-26-2022 Albumin [Mass/Vol] 3.7 g/dL Low 3.9-4.9 [facility] Comment on above: Order Comment: Speci men Type: BLOOD SPECIMENOrdering Facility: [facility] Address: [address] [place], [place] [address] Performed By: #### 2 4323-8, 1987-11 ####[facility] LABIA [id number] [place] [address] [place] ALP [Catalytic activity/Vol] 77 U/L Normal 34-123 [facility] Comment on above: Order Comment: Speci men Type: BLOOD SPECIMENOrdering Facility: [facility] Address: [address] [place], [place] [address] Performed By: #### 2 4323-8, 1987-11 ####[facility]CLIA [id number] [place] [address] [place] ALT [Catalytic activity/Vol] 9 U/L Normal 7-38 [facility] [facility] Comment on above: Order Comment: Speci men Type: BLOOD SPECIMENOrdering Facility: [facility] Address: [address] [place], [place] [address] Performed By: #### 2 4323-02, 1987-11 ####[facility] LABCLIA [id number] [place] [address] [place] Anion gap [Moles/Vol] 12 mmol/L Normal 9-18 [facility] Comment on above: Order Comment: Speci men Type: BLOOD SPECIMENOrdering Facility: [facility] Address: [address] [place], [place] [address] Performed By: #### 2 4323-02, 1987-11 ####[facility] LABCLIA [id number] [place] [address] [place] AST [Catalytic activity/Vol] 11 U/L Low 13-35 [facility] Comment on above: Order Comment: Speci men Type: BLOOD SPECIMENOrdering Facility: [facility] Address: [address] [place], [place] [address] Performed By: #### 2 4323-02, 1987-11 ####[facility] LABCLIA [id number] [place] [address] [place] Bilirubin [Mass/Vol] 0.3 mg/dL Normal 0.2-1.3 [facility] Comment on above: Order Comment: Speci men Type: BLOOD SPECIMENOrdering Facility: [facility] Address: [address] [place] [address] Performed By: #### 2 4323-02, 1987-11 ####[facility] LABCLIA [id number] [place] [address] [place] Calcium [Mass/Vol] 9.4 mg/dL Normal 8.5-10.2 [facility] Comment on above: Order Comment: Speci men Type: BLOOD SPECIMENOrdering Facility: [facility] Address: [address] [place], [place] [address] Performed By: #### 2 43209-25, 1987-11 ####[facility] LABCLIA [id number] [facility] [place] [address] [place] Chloride [Moles/Vol] 104 mmol/L Normal 97-105 [facility] Comment on above: Order Comment: Speci men Type: BLOOD SPECIMENOrdering Facility: [facility] Address: [address] [place], [place] [address] Performed By: #### 2 43209-25, 1987-11 ####[facility] LABCLIA [id number] [place] [address] [place] CO2 [Moles/Vol] 23 mmol/L Normal 22-30 [facility] Comment on above: Order Comment: Speci men Type: BLOOD SPECIMENOrdering Facility: [facility] Address: [address] [place] [address] Performed By: #### 2 43209-25, 1987-11 ####[facility] LABCLIA [id number] [place] [address] [place] Creatinine [Mass/Vol] 1.17 mg/dL High 0.58-0.96 [facility] Comment on above: Order Comment: Speci men Type: BLOOD SPECIMENOrdering Facility: [facility] Address: [address] [place] [address] Performed By: #### 2 43209-25, 1987-11 ####[facility] LABIA [id number] [address] [place] ESTIMATED GLOMERULAR FILTRATION RATE 53 mL/min/1.73m??? Low >=60 [facility] Comment on above: Order Comment: Speci men Type: BLOOD SPECIMENOrdering Facility: [facility] Address: [address] [place] [address] Result Comment: Yeimi mated Glomerular Filtration Rate (eGFR) is calculated using the 2020 CKD-EPI creatinine equation. This equation utilizes serum creatinine, sex, and age as parameters. The creatinine assay has traceable calibration to isotope dilution-mass spectrometry. Refer to KDIGO guidelines for clinical interpretation. In patients with unstable renal function, e.g. those with acute kidney injury, the eGFR may not accurately reflect actual GFR. Performed By: #### 2 4323-02, 1987-11 ####[facility] LABCLIA [id number] [address] [address] [place] Glucose [Mass/Vol] 117 mg/dL High 74-99 [facility] Comment on above: Order Comment: Specradu elise Type: BLOOD SPECIMENOrdering Facility: [facility] Address: [address] [place] [address] Result Comment: The [place] Diabetes Association (ADA) provides guidance for cutoff values for fasting glucose and random glucose. The ADA defines fasting as no caloric intake for at least 8 hours. Fasting plasma glucose results between 100 to 125 mg/dL indicate increased risk for diabetes (prediabetes). Fasting plasma glucose results greater than or equal to 126 mg/dL meet the criteria for diagnosis of diabetes. In the absence of unequivocal hyperglycemia, results should be confirmed by repeat testing. In a patient with classic symptoms of hyperglycemia or hyperglycemic crisis, random plasma glucose results greater than or equal to 200 mg/dL meet the criteria for diagnosis of diabetes. Reference: Standards of Medical Care in Diabetes 2016, [place] Diabetes Association. Diabetes Care. 2016.39(Suppl 1). Performed By: #### 2 4323-02, 1987-11 ####[facility] LABCLIA [id number] [address] [address] [place] Potassium [Moles/Vol] 4.2 mmol/L Normal 3.7-5.1 [facility] Comment on above: Order Comment: Corey elise Type: BLOOD SPECIMENOrdering Facility: [facility] Address: [address] [facility] [place] [address] Performed By: #### 2 4323-02, 1987-11 ####[facility] LABCLIA [id number] [address] [address] [place] Protein [Mass/Vol] 6.3 g/dL Normal 6.3-8.0 [facility] Comment on above: Order Comment: Speci men Type: BLOOD SPECIMENOrdering Facility: [facility] Address: [address] [place] [address] Performed By: #### 2 43238, 1987-11 ####[facility] LABCLIA [id number] [place] [address] [place] Sodium [Moles/Vol] 139 mmol/L Normal 136-144 [facility] Comment on above: Order Comment: Speci men Type: BLOOD SPECIMENOrdering Facility: [facility] Address: [address] [place] [address] Performed By: #### 2 4328, 1987-11 ####[facility] LABCLIA [id number] [address] [place] Urea nitrogen [Mass/Vol] 20 mg/dL Normal 7-21 [facility] Comment on above: Order Comment: Speci men Type: BLOOD SPECIMENOrdering Facility: [facility] Address: [address] [place] [address] Performed By: #### 2 43238, 1987-11 ####[facility] LABIA [id number] [address] [place] CNPMirtha 02-20-2022 CNPN Telephone (GASTMN) CHANEL PRASAD ([id number]) 1960 F Date Time Provider Department 02/20/22 JOSE MANUEL BELL GASTMN During your visit today, we recorded the following information about you: Tiffany Carreon RN 02/20/2022 1:33 PM Signed Patient called this nurse concerned on her local pharmacy calling her and telling her the insurance will not approve the Stelara medication she is being changed to. Re-assured patient the office will handle getting her set up for infusions. Explained she can do the infusion through [facility] or in her home. Also explained the process of getting a prior authorization etc. 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 Patient would like to work with [facility] to receive her Stelara, once approved, in her home. Will gather paperwork and start the process for pt. Tiffany Carreon RN February 20, 2022 1:33 PM Tiffany Carreon RN 02/21/2022 4:02 PM Signed Faxed [facility] forms, OV notes, labs, demographics, insurance cards and prescriptions to [facility] at [phone]. [facility] will do the prior authorization to patient's insurance and once approved will arrange for pt to receive her first infusion of Stelara. Tiffany Carreon RN February 21, 2022 4:02 PM Allergies As of Date: 02/20/2022 Noted Allergy Reaction AZITHROMYCIN 09/11/2015 11 - Vomiting BALSALAZIDE 03/13/2020 5 - Intolerance Comments: Nausea, body aches, fatigue BUDESONIDE 03/13/2020 5 - Intolerance Comments: Heart palpitations, elevated glucose, nausea CODEINE 09/24/2004 14 - Other: See Comments Comments: Headache, itchy, nausea. FLAGYL (METRONIDAZOLE) 02/18/2020 1 - Mental Status Change LEXAPRO (ESCITALOPRAM OXALATE) 02/18/2020 14 - Other: See Comments Comments: Skin crawling MESALAMINE 02/18/2020 5 - Intolerance Comments: Upset stomach, headace, nausea, flu-like symptoms PENICILLINS 09/09/2017 9 - Itching PHENAZOPYRIDINE 02/18/2020 8 - GI Upset PROBIOTIC (LACTOBACILLUS ACIDOPHI*02/18/2020 16 - Unknown SULFA (SULFONAMIDE ANTIBIOTICS) 02/18/2020 5 - Intolerance SULFUR 02/18/2020 14 - Other: See Comments Comments: Stomach irritation VICODIN (HYDROCODONE-ACETAMINOPHE* 8 - GI Upset WELLBUTRIN (BUPROPION HCL) 02/18/2020 14 - Other: See Comments Comments: Not effective XANAX (ALPRAZOLAM) 02/18/2020 14 - Other: See Comments Comments: Nausea ZINC 10/15/2010 16 - Unknown ZOLOFT (SERTRALINE) 02/18/2020 14 - Other: See Comments Comments: Insomnia, jittery Date Reviewed: 02/14/2022 Reviewed by: Claire Stuart RN - Fully Assessed Reason for Visit: Patient Question [5034] 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 Discontinue saline lock post exam. If Pt. has a central line or IVAD, may access for administration according to line specific nursing protocol. Once exam is complete flush line and de-access according to line specific nursing protocol in the CT contrast administration guidelines link. - enteric contrast (will be provided with radiology test) For CT ENTEROGRAPHY W IVCON order Administer, As Directed One Time Only, via Oral, Rectal, both Oral and Rectal, Enteric Tube, Stoma or Indwelling Catheter,? Enteric Contrast as designated per enteric contrast guidelines. - ustekinumab (STELARA) 130 mg/26 mL injection Inject 78 mL intravenously one time only for 1 dose. - ustekinumab (STELARA) 90 mg/mL injection Inject 1 mL subcutaneously every 8 weeks. - dicyclomine (BENTYL) 20 mg tablet Take 1 tablet by mouth before meals and at bedtime. - Simethicone 125 mg chewable tablet Take 1 tablet by mouth every 6 hours as needed. - hydrocortisone (ANUSOL-HC) 25 mg suppository 1 Suppository by RECTAL route twice daily. - predniSONE (DELTASONE) 10 mg tablet Take 2 tablets by mouth once daily. - vedolizumab (ENTYVIO) 300 mg injection 300mg Intravenous every six weeks. - polyethylene glycol 3350 (MIRALAX, GLYCOLAX) 17 gram/dose powder Use as directed for Miralax / Gatorade Bowel Prep Kit - Gatorade Sports Drink Use as directed for Miralax / Gatorade Bowel Prep Kit - Bisacodyl (DULCOLAX) 5 mg tab Use as directed for Miralax / Gatorade Bowel Prep Kit - valACYclovir (VALTREX) 1 gram Take 1,000 mg by mouth once daily. 7 days - traMADol (ULTRAM) 50 mg tablet Take 50 mg by mouth every 6 hours as needed for pain. - vedolizumab (ENTYVIO) 300 mg injection 300mg Intravenous every 8 weeks. - naproxen sodium (ALEVE) 220 mg tablet Take 220 mg by mouth as needed. uses 3-4 times /month for low back/extremity pain - calcium (more content not included)... Normal [facility] C diff Tox gens Stl Ql EULALIA+p robeon 12-20-2021 C. difficile toxin genes EULALIA+probe Ql (Stl) Positive Abnormal Negative for C. difficile toxin by PCR [facility] Comment on above: Order Comment: Speci men Type: STOOL SPECIMENOrdering Facility: [facility] Address: [address] [place] [address] Result Comment: A po sitive PCR result may indicate C.difficile infection or colonization. The positive predictive value of this test for C.difficile infection is highest for patients with clinically significant diarrhea (>=3 unformed stools in 24h) who do not have an alternative explanation (e.g., recent receipt of laxatives). Toxin EIA testing will also be performed as recommended by IDSA clinical practice guidelines for institutions without pre-agreed criteria for specimen submission. Performed By: #### Radhames HODGE, 16376-5 ####[facility] LABCLIA [id number] [facility] [id number] [place] [address] [facility] C. DIFFICILE TOXIN BY EIAon 12-20-2021 C. difficile toxin A+B IA Ql (Stl) Not detected Normal Negative for C. difficile toxin [facility] Comment on above: Order Comment: Speci men Type: STOOL SPECIMENOrdering Facility: [facility] Address: [address] [address] Result Comment: Toxi n EIA is less sensitive than cell cytotoxin and PCR assays. Clinical correlation of PCR positive/toxin EIA negative results is required to distinguish C. difficle colonization from disease. Performed By: #### Radhames HODGE, 91187-8 ####[facility] LABCLIA [id number] [place] [address] [place] Calprotectin Stl-mCnton 06-0 Calprotectin (Stl) [Mass/Mass] 961.0 mg/kg High 0-50 [facility] Comment on above: Order Comment: Speci men Type: STOOL SPECIMENOrdering Facility: [facility] Address: [address] [place] [address] Result Comment: INTE RPRETIVE INFORMATION: Calprotectin, Fecal <50.0 mg/kg : Normal 50.0-120.0 mg/kg: Borderline. Test should be re-evaluated in 4-6 wks. >120.0 mg/kg: Abnormal Performed By: #### 3 8445-3 ####[facility] LABIA [id number] [place] [address] [place] ANSER VDZ (PROMETHEUS)on SERUM VEDOLIZUMAB (VDZ) View results in Scanned Documents link when available. Normal [facility] Comment on above: Order Comment: Speci men Type: BLOOD SPECIMENOrdering Facility: [facility] Address: [address] [place] [address] Performed By: #### A NSVDZ ####PROMETHEUSCLIA [id number] [place] [address] FERRITIN BLDon 12-19-2021 Ferritin [Mass/Vol] 28.8 ng/mL Normal 14.7-205.1 [facility] Comment on above: Order Comment: Speci men Type: BLOOD SPECIMENOrdering Facility: [facility] Address: [address] [place] [address] Performed By: #### Radu SANTOS FERR, B12 ####[facility] LABCLIA [id number] [place] [address] [place] IRON + TIBCon 12-19-2021 Iron [Mass/Vol] 35 ug/dL Low 41-186 [facility] Comment on above: Order Comment: Speci men Type: BLOOD SPECIMENOrdering Facility: [facility] Address: [address] [place], [place] [address] Performed By: #### KJ GIBSON, B12 ####[facility] LABCLIA [id number] [place] [address] [place] Iron binding capacity [Mass/Vol] 309 ug/dL Normal 232-386 [facility] Comment on above: Order Comment: Speci men Type: BLOOD SPECIMENOrdering Facility: [facility] Address: [address] [place], [place] [address] Performed By: #### KJ GIBSON, B12 ####[facility] LABCLIA [id number] [place] [address] [place] Iron/TIBC [Molar ratio] 11 % Low 15-57 [facility] Comment on above: Order Comment: Speci men Type: BLOOD SPECIMENOrdering Facility: [facility] Address: [address] [place], [place] [address] Performed By: #### KJ GIBSON, B12 ####[facility] LABIA [id number] [place] [address] [place] VITAMIN B12 BLOODon 12-20-19 22 Cobalamin (Vitamin B12) [Mass/Vol] 1526 pg/mL High 232-1,245 [facility] Comment on above: Order Comment: Speci men Type: BLOOD SPECIMENOrdering Facility: [facility] Address: [address] [place] [address] Performed By: #### KJ GIBSON, B12 ####[facility] LABIA [id number] [place] [address] [place] VITAMIN D 25 HYDROXYon 12-19 25-hydroxyvitamin D3 [Mass/Vol] 47.1 ng/mL Normal 31.0-80.0 [facility] Comment on above: Order Comment: Speci men Type: BLOOD SPECIMENOrdering Facility: [facility] Address: [address] [place] [address] Result Comment: Clas sification of 25 [place] Vitamin D status: Deficiency/Insufficiency: < or = 30 ng/ml. Sufficiency/Optimal Levels: 31-80 ng/mL Toxicity: > 100 ng/mL. Test performed by chemiluminescent immunoassay. Performed By: #### V ITD ####[facility] LABCLIA [id number] [id number] [id number] [facility] CNPNon 12-11-2021 CNPN Telephone ([employer]) CHANEL PRASAD ([id number]) 1960 F Date Time Provider Department 12/11/21 CORINNE GABRIEL During your visit today, we recorded the following information about you: Komal Rod 12/11/2021 5:34 PM Signed Contacted patient, to schedule her colonoscopy she had her last one in [place] and did not have a good experience with Dr. Addison. Wondering if this patient would be suitable for [place] or [place]. Komal Rod PSS Komal Rod 12/24/2021 2:50 PM Signed Contacted patient she stated that she had her breast biopsy with Dr. Cespedes @ [facility] and she will having her colonoscopy with her too on February 04, Komal Rod PSS Allergies As of Date: 12/11/2021 Noted Allergy Reaction AZITHROMYCIN 09/11/2015 11 - Vomiting BALSALAZIDE 03/13/2020 5 - Intolerance Comments: Nausea, body aches, fatigue BUDESONIDE 03/13/2020 5 - Intolerance Comments: Heart palpitations, elevated glucose, nausea CODEINE 09/24/2004 14 - Other: See Comments Comments: Headache, itchy, nausea. FLAGYL (METRONIDAZOLE) 02/18/2020 1 - Mental Status Change LEXAPRO (ESCITALOPRAM OXALATE) 02/18/2020 14 - Other: See Comments Comments: Skin crawling MESALAMINE 02/18/2020 5 - Intolerance Comments: Upset stomach, headace, nausea, flu-like symptoms PENICILLINS 09/09/2017 9 - Itching PHENAZOPYRIDINE 02/18/2020 8 - GI Upset PROBIOTIC (LACTOBACILLUS ACIDOPHI*02/18/2020 16 - Unknown SULFA (SULFONAMIDE ANTIBIOTICS) 02/18/2020 5 - Intolerance SULFUR 02/18/2020 14 - Other: See Comments Comments: Stomach irritation VICODIN (HYDROCODONE-ACETAMINOPHE* 8 - GI Upset WELLBUTRIN (BUPROPION HCL) 02/18/2020 14 - Other: See Comments Comments: Not effective XANAX (ALPRAZOLAM) 02/18/2020 14 - Other: See Comments Comments: Nausea ZINC 10/15/2010 16 - Unknown ZOLOFT (SERTRALINE) 02/18/2020 14 - Other: See Comments Comments: Insomnia, jittery Date Reviewed: 08/30/2021 Reviewed by: Radha Roman RN - Fully Assessed Reason for Visit: Appointment [186] Prescriptions as of 01/18/2022 - predniSONE (DELTASONE) 10 mg tablet Take 2 tablets by mouth once daily. - vedolizumab (ENTYVIO) 300 mg injection 300mg Intravenous every six weeks. - polyethylene glycol 3350 (MIRALAX, GLYCOLAX) 17 gram/dose powder Use as directed for Miralax / Gatorade Bowel Prep Kit - Gatorade Sports Drink Use as directed for Miralax / Gatorade Bowel Prep Kit - Bisacodyl (DULCOLAX) 5 mg tab Use as directed for Miralax / Gatorade Bowel Prep Kit - valACYclovir (VALTREX) 1 gram Take 1,000 mg by mouth once daily. 7 days - traMADol (ULTRAM) 50 mg tablet Take 50 mg by mouth every 6 hours as needed for pain. - vedolizumab (ENTYVIO) 300 mg injection 300mg Intravenous every 8 weeks. - naproxen sodium (ALEVE) 220 mg tablet Take 220 mg by mouth as needed. uses 3-4 times /month for low back/extremity pain - calcium carbonate (TUMS ORAL) Take 1,000 mg by mouth once daily. - acetaminophen (TYLENOL) 325 mg tablet Take 2 tablets by mouth every 4 hours as needed (for pain.). - Fluticasone Furoate 27.5 mcg/actuation nasal spray Use 2 Sprays in each nostril once daily. - levothyroxine (SYNTHROID) 50 mcg tablet Take 50 mcg by mouth once daily. 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] 08/03/2015 Muscle cramping [R25.2] 08/03/2015 Vitamin D deficiency [E55.9] 08/03/2015 Encounter for colonoscopy due to history of sukumar*01/29/2017 GERD (gastroesophageal reflux disease) [K21.9] Ulcerative colitis (HCC) [K51.90] 03/15/2020 Drug allergy [Z88.9] 03/15/2020 Major depressive disorder, recurrent episode, m*07/02/2021 Psychological factor affecting physical conditi*07/02/2021 Encounter Status:Closed by KOMAL ROD on 01/18/22 Normal [facility] Absolute lymphocyte counton 12-07-2021 Lymphocytes Auto (Unsp spec) [#/Vol] 2.17 10*3/uL 0.83-4.51 [facility] Work Phone: Basophil percentageon 2021 Basophils/100 WBC (Bld) 1.1 % 0-1 [facility] Work Phone: Bilirubin [Mass/Vol] 0.70 mg/dL 0.20-1.00 [facility] Work Phone: Comment on above: For patients on eltr ombopag therapy, use of Dimension [place] TBIL is not recommended. Chloride [Moles/Vol] 108 mmol/L 98-107 [facility] Work Phone: Eosinophils/100 WBC (Bld) 3.6 % 0-5 [facility] Work Phone: [phone] Glucose [Mass/Vol] 94 mg/dL 74-106 [facility] Work Phone: Neutrophils (Bld) [#/Vol] 3.5 10*3/uL 2.0-7.7 [facility] Work Phone: Neutrophils/100 WBC (Bld) 54.8 % 47-70 [facility] Work Phone: Potassium [Moles/Vol] 3.7 mmol/L 3.5-5.1 [facility] Work Phone: Protein [Mass/Vol] 6.7 g/dL 6.4-8.2 [facility] Work Phone: [phone] Sodium [Moles/Vol] 140 mmol/L 136-145 [facility] Work Phone: WBC (Bld) [#/Vol] 6.4 10*3/uL 4.4-11.0 [facility] Work Phone: Blood erythrocytes count (nu mber/volume)on 12-07-2021 RBC (Bld) [#/Vol] 4.03 10*6/uL 4.2-5.4 [facility] Work [facility]: Blood hemoglobin measurement (mass/volume)on 12-07-2021 Hemoglobin (Bld) [Mass/Vol] 11.3 g/dL 12.0-15.0 [facility] Work Phone: Blood lymphocytes/100 leukoc yteson 12-07-2021 Lymphocytes/100 WBC (Bld) 34.2 % 19-41 [facility] Work Phone: Blood monocytes/100 leukocyt eson 12-07-2021 Monocytes/100 WBC (Bld) 6.0 % 0-10 [facility] Work Phone: Blood platelet mean volumeon 12-07-2021 Platelet mean volume (Bld) [Entitic vol] 10.3 fL 6.2-12.0 [facility] Work Phone: Determination of erythrocyte mean corpuscular volume (MCV)on 12-07-2021 MCV (RBC) [Entitic vol] 88.6 fL 81-99 [facility] Work Phone: Hematocrit Auto (Bld) [Volum e fraction]on 12-07-2021 Hematocrit (Bld) [Volume fraction] 35.7 % 37-47 [facility] Work Phone: Laboratory - Chemistry and C hemistry - challengeon 12-07-2021 ALP [Catalytic activity/Vol] 84 U/L 45-117 [facility] Work Phone: ALT [Catalytic activity/Vol] 22 U/L 13-56 [facility] Work Phone: CO2 [Moles/Vol] 26.0 mmol/L 21.0-32.0 [facility] Work Phone: Cobalamin (Vitamin B12) [Mass/Vol] 543 pg/mL 211-911 [facility] Work Phone: [phone] Globulin (S) [Mass/Vol] 3.4 g/dL 2.2-4.2 [facility] Work Phone: Urea nitrogen/Creatinine [Mass ratio] 21.8 mg/mg 10-20 [facility] Work Phone: Laboratory - Hematology and Cell countson 12-07-2021 Erythrocyte distribution width (RBC) [Entitic vol] 46.9 fL 35.1-43.9 [facility] Work Phone: Erythrocyte distribution width (RBC) [Ratio] 14.5 % 11.6-14.6 [facility] Work Phone: Immature granulocytes/100 WBC (Bld) 0.300 % 0.0-0.9 [facility] Work Phone: Comment on above: IG% - Immature Granu locytes (promyelocytes, myelocytes and metamyelocytes) > 1% indicates that a LEFT SHIFT is Present. MCH (RBC) [Entitic mass] 28.0 pg 27.0-32.0 [facility] Work Phone: Nucleated RBC/100 WBC (Bld) [Ratio] 0 % 0-5 [facility] Work Phone: MCHC Auto (RBC) [Mass/Vol]on 12-07-2021 MCHC (RBC) [Mass/Vol] 31.7 g/dL 32-36 [facility] Work Phone: No Panel Informationon 12-07 Estimated GFR (MDRD) Amer 90 mL/min >60 [facility] Work Phone: Comment on above: GFR Calc Estimated GFR (MDRD) Non-Af Amer 75 mL/min >60 [facility] Work Phone: Comment on above: Non- GFR Calc Thyroid Stimulating Hormone (TSH) 2.23 uIU/mL 0.358-3.74 [facility] Work Phone: Vitamin D 25-Hydroxy 50.5 ng/mL [facility] Work Phone: Comment on above: Vitamin D 25(OH) Sta tus Range Deficiency <20 ng/mL (50nmol/L) Insufficiency 20 - 30 ng/mL (50 - 75 nmol/L) Sufficiency 30 - 100 ng/mL (75 - 250 nmol/L) Toxicity >100 ng/mL (>250 nmol/L) Platelets bldon 12-07-2021 Platelets (Bld) [#/Vol] 311 10*3/uL 150-450 [facility] Work Phone: Serum or plasma albumin selvin urement (mass/volume)on 12-07-2021 Albumin [Mass/Vol] 3.3 g/dL 3.2-5.0 [facility] Work Phone: Serum or plasma albumin/glob ulin mass ratioon 12-07-2021 Albumin/Globulin [Mass ratio] 1.0 {ratio} 0.9-2.4 [facility] Work Phone: Serum or plasma calcium selvin urement (mass/volume)on 12-07-2021 Calcium [Mass/Vol] 8.5 mg/dL 8.5-10.1 [facility] Work Phone: Serum or plasma creatinine m easurement (mass/volume)on 12-07-2021 Creatinine [Mass/Vol] 0.83 mg/dL 0.55-1.02 [facility] Work Phone: Comment on above: The validity of the calculated GFR & GFRAA in patients over 70 years has not been determined. Clinical correlation is essential. Serum or plasma urea nitroge n measurement (mass/volume)on 12-07-2021 Urea nitrogen [Mass/Vol] 18 mg/dL 7-18 [facility] Work Phone: Thin prep Papanicolaou smear with manual screeningon 12-07-2021 Thin prep Papanicolaou smear with manual screening 15 U/L 15-37 [facility] Work Phone: Thin prep Papanicolaou smear with manual screening 6 5-15 [facility] Work Phone: BLOOD TB SCREENon 11-07-2021 M. tuberculosis tuberculin stim IFN-g Ql (Bld) Negative Normal [facility] Comment on above: Order Comment: Speci men Type: BLOOD SPECIMENOrdering Facility: [facility] Address: [address] [place] [address] Performed By: #### I NFTBP ####[facility] [id number] [address] STATES OF [facility] MITOGEN MINUS NIL >9.92 Normal >=0.50 [facility] Comment on above: Order Comment: Speci men Type: BLOOD SPECIMENOrdering Facility: [facility] Address: [address] [place] [address] Performed By: #### I NFTBP ####[facility] [id number] [address] TB GAMMA INTERPRETATION Infection with M. tuberculosis complex is unlikely. If latent tuberculosis infection is highly suspected, a negative result does not rule out the infection. Specimens from immunocompromised patients and those <5 years of age may show false negative results. In case of a contact investigation, please repeat 8-12 weeks after a known exposure. Normal [facility] Comment on above: Order Comment: Speci men Type: BLOOD SPECIMENOrdering Facility: [facility] Address: [address] [place], [place] [address] Performed By: #### I NFTBP ####[facility] LABCLIA [id number] [address] OF [place] TB NIL 0.08 IU/mL Normal <=8.00 [facility] Comment on above: Order Comment: Speci men Type: BLOOD SPECIMENOrdering Facility: [facility] Address: [address] [place], [place] [address] Performed By: #### I NFTBP ####[facility] LABCLIA [id number] [place] [address] [place] TB1 AG MINUS NIL <0.00 Normal <0.35 [facility] Comment on above: Order Comment: Speci men Type: BLOOD SPECIMENOrdering Facility: [facility] Address: [address] [place], [place] [address] Performed By: #### I NFTBP ####[facility] LABCLIA [id number] [address] STATES [place] TB2 AG MINUS NIL <0.00 Normal <0.35 [facility] Comment on above: Order Comment: Speci men Type: BLOOD SPECIMENOrdering Facility: [facility] Address: [address] [place], [place] [address] Performed By: #### I NFTBP ####[facility] LABCLIA [id number] [place] [address] [place] CBC panel Auto (Bld)on 11-07 Erythrocyte distribution width (RBC) [Ratio] 14.6 % Normal 11.5-15.0 [facility] Comment on above: Order Comment: Speci men Type: BLOOD SPECIMENOrdering Facility: [facility] Address: [address] [place], [place] [address] Performed By: #### 5 8410-2 ####[facility] STEVEASAF [id number] [place] [address] [place] Hematocrit (Bld) [Volume fraction] 38.4 % Normal 36.0-46.0 [facility] Comment on above: Order Comment: Speci men Type: BLOOD SPECIMENOrdering Facility: [facility] Address: [address] [place] [address] Performed By: #### 5 8410-2 ####[facility] HOSPITALDanika [id number] [place] [address] [place] Hemoglobin (Bld) [Mass/Vol] 12.3 g/dL Normal 11.5-15.5 [facility] Comment on above: Order Comment: Speci men Type: BLOOD SPECIMENOrdering Facility: [facility] Address: [address] [place] [address] Performed By: #### 5 8410-2 ####[facility]ITALA [id number] [place] [address] [place] MCH (RBC) [Entitic mass] 27.9 pg Normal 26.0-34.0 [facility] Comment on above: Order Comment: Speci men Type: BLOOD SPECIMENOrdering Facility: [facility] Address: [address] [place], [place] [address] Performed By: #### 5 8410-2 ####[facility]ITALNCLIA [id number] [place] [address] [place] MCHC (RBC) [Mass/Vol] 32.0 g/dL Normal 30.5-36.0 [facility] Comment on above: Order Comment: Speci men Type: BLOOD SPECIMENOrdering Facility: [facility] Address: [address] [place] [address] Performed By: #### 5 8410-2 ####[facility] ADRIANNELIA [id number] [place] [address] [place] MCV (RBC) [Entitic vol] 87.1 fL Normal 80.0-100.0 [facility] Comment on above: Order Comment: Speci men Type: BLOOD SPECIMENOrdering Facility: [facility] Address: [address] [place] [address] Performed By: #### 5 8410-2 ####[facility] STEVECORAOPOLISDANNIEA [id number] [place] [address] [place] Nucleated RBC (Bld) [#/Vol] 10*3/uL Normal <0.01 [facility] Comment on above: Order Comment: Speci men Type: BLOOD SPECIMENOrdering Facility: [facility] Address: [address] [place] [address] Performed By: #### 5 8410-2 ####[facility] HOSPITALDANNIEA [id number] [place] [address] [place] Platelet mean volume (Bld) [Entitic vol] 10.0 fL Normal 9.0-12.7 [facility] Comment on above: Order Comment: Speci men Type: BLOOD SPECIMENOrdering Facility: [facility] Address: [address] [place] [address] Performed By: #### 5 8410-2 ####[facility] HOS[facility]ITALDANNIEA [id number] [place] [address] [place] Platelets (Bld) [#/Vol] 257 10*3/uL Normal 150-400 [facility] Comment on above: Order Comment: Speci men Type: BLOOD SPECIMENOrdering Facility: [facility] Address: [address] [place] [address] Performed By: #### 5 8410-2 ####[facility] HOSPITALGARLANDLIA [id number] [place] [address] [place] RBC (Bld) [#/Vol] 4.41 10*6/uL Normal 3.90-5.20 [facility] Comment on above: Order Comment: Speci men Type: BLOOD SPECIMENOrdering Facility: [facility] Address: [address] [place] [address] Performed By: #### 5 8410-2 ####[facility] [id number] [place] [address] [place] WBC (Bld) [#/Vol] 5.85 10*3/uL Normal 3.70-11.00 [facility] Comment on above: Order Comment: Speci men Type: BLOOD SPECIMENOrdering Facility: [facility] Address: [address] [place] [address] Performed By: #### 5 8410-2 ####[facility] [id number] [place] [address] [place] Erythrocyte distribution width (RBC) [Ratio] 14.6 % 11.5 - 15.0 % [facility] Hematocrit (Bld) [Volume fraction] 38.4 % 36.0 - 46.0 % [facility] Hemoglobin (Bld) [Mass/Vol] 12.3 g/dL 11.5 - 15.5 g/dL [facility] MCH (RBC) [Entitic mass] 27.9 pg 26.0 - 34.0 pg [facility] MCHC (RBC) [Mass/Vol] 32.0 g/dL 30.5 - 36.0 g/dL [facility] MCV (RBC) [Entitic vol] 87.1 fL 80.0 - 100.0 fL [facility] Nucleated RBC (Bld) [#/Vol] 10*3/uL <0.01 k/uL [facility] Platelet mean volume (Bld) [Entitic vol] 10.0 fL 9.0 - 12.7 fL [facility] Platelets (Bld) [#/Vol] 257 10*3/uL 150 - 400 k/uL [facility] RBC (Bld) [#/Vol] 4.41 10*6/uL 3.90 - 5.20 m/uL [facility] WBC (Bld) [#/Vol] 5.85 10*3/uL 3.70 - 11.00 k/uL [facility] CRP SerPl-mCncon 11-07-2021 CRP [Mass/Vol] 1.7 mg/dL High <0.9 [facility] Comment on above: Order Comment: Speci men Type: BLOOD SPECIMENOrdering Facility: [facility] Address: [address] [place] [address] Performed By: #### 1 988-5 ####[facility] LABCLIA [id number] [address] STATES OF [facility] Comprehensive metabolic 2000 panelon 11-07-2021 Albumin [Mass/Vol] 3.9 g/dL Normal 3.9-4.9 [facility] Comment on above: Order Comment: Speci men Type: BLOOD SPECIMENOrdering Facility: [facility] Address: [address] [place] [address] Performed By: #### 2 4323-8 ####[facility]ITALA [id number] [place] [address] [place] ALP [Catalytic activity/Vol] 100 U/L Normal 34-123 [facility] Comment on above: Order Comment: Speci men Type: BLOOD SPECIMENOrdering Facility: [facility] Address: [address] [place] [address] Performed By: #### 2 4323-8 ####[facility] HOS[facility]ITALNCLIA [id number] [place] [address] [place] ALT [Catalytic activity/Vol] 10 U/L Normal 7-38 [facility] Comment on above: Order Comment: Speci men Type: BLOOD SPECIMENOrdering Facility: [facility] Address: [address] [place] [address] Performed By: #### 2 4323-8 ####[facility]ONTPELIER HOSPITALLIA [id number] [place] [address] [place] Anion gap [Moles/Vol] 9 mmol/L Normal 9-18 [facility] Comment on above: Order Comment: Speci men Type: BLOOD SPECIMENOrdering Facility: [facility] Address: [address] [place] [address] Performed By: #### 2 4323-8 ####[facility] MILLWGARLANDLIA [id number] [place] [address] [place] AST [Catalytic activity/Vol] 15 U/L Normal 13-35 [facility] Comment on above: Order Comment: Speci men Type: BLOOD SPECIMENOrdering Facility: [facility] Address: [address] [place] [address] Performed By: #### 2 4323-8 ####[facility] JACK[facility]LEWGARLANDLIA [id number] [place] [address] [place] Bilirubin [Mass/Vol] 0.6 mg/dL Normal 0.2-1.3 [facility] Comment on above: Order Comment: Speci men Type: BLOOD SPECIMENOrdering Facility: [facility] Address: [address] [place] [address] Performed By: #### 2 4323-8 ####[facility] JACKSONVILLEWNCLIA [id number] [place] [address] [place] Calcium [Mass/Vol] 8.9 mg/dL Normal 8.5-10.2 [facility] Comment on above: Order Comment: Speci men Type: BLOOD SPECIMENOrdering Facility: [facility] Address: [address] [place] [address] Performed By: #### 2 4323-8 ####[facility] FOR CHILDRENTOWNCLIA [id number] [place] [address] [place] Chloride [Moles/Vol] 102 mmol/L Normal 97-105 [facility] Comment on above: Order Comment: Speci men Type: BLOOD SPECIMENOrdering Facility: [facility] Address: [address] [place] [address] Performed By: #### 2 4323-8 ####[facility] [id number] [place] [address] [place] [facility] CO2 [Moles/Vol] 25 mmol/L Normal 22-30 [facility] Comment on above: Order Comment: Speci men Type: BLOOD SPECIMENOrdering Facility: [facility] Address: [address] [place] [address] Performed By: #### 2 4323-8 ####[facility] [id number] [address] STATES OF [facility] Creatinine [Mass/Vol] 0.87 mg/dL Normal 0.58-0.96 [facility] Comment on above: Order Comment: Speci men Type: BLOOD SPECIMENOrdering Facility: [facility] Address: [address] [place] [address] Performed By: #### 2 4323-8 ####[facility] [id number] [address] ESTIMATED GLOMERULAR FILTRATION RATE 76 mL/min/1.73m??? Normal >=60 [facility] Comment on above: Order Comment: Speci men Type: BLOOD SPECIMENOrdering Facility: [facility] Address: [address] [place] [address] Result Comment: Yeimi mated Glomerular Filtration Rate (eGFR) is calculated using the 2020 CKD-EPI creatinine equation. This equation utilizes serum creatinine, sex, and age as parameters. The creatinine assay has traceable calibration to isotope dilution-mass spectrometry. Refer to KDIGO guidelines for clinical interpretation. In patients with unstable renal function, e.g. those with acute kidney injury, the eGFR may not accurately reflect actual GFR. Performed By: #### 2 4323-8 ####[facility] PHILIPWNCLIA [id number] [place] [address] [place] Glucose [Mass/Vol] 97 mg/dL Normal 74-99 [facility] Comment on above: Order Comment: Speci men Type: BLOOD SPECIMENOrdering Facility: [facility] Address: [address] [place] [address] Result Comment: The [place] Diabetes Association (ADA) provides guidance for cutoff values for fasting glucose and random glucose. The ADA defines fasting as no caloric intake for at least 8 hours. Fasting plasma glucose results between 100 to 125 mg/dL indicate increased risk for diabetes (prediabetes). Fasting plasma glucose results greater than or equal to 126 mg/dL meet the criteria for diagnosis of diabetes. In the absence of unequivocal hyperglycemia, results should be confirmed by repeat testing. In a patient with classic symptoms of hyperglycemia or hyperglycemic crisis, random plasma glucose results greater than or equal to 200 mg/dL meet the criteria for diagnosis of diabetes. Reference: Standards of Medical Care in Diabetes 2016, [place] Diabetes Association. Diabetes Care. 2016.39(Suppl 1). Performed By: #### 2 4323-8 ####[facility] HOS[facility]ITALNCLIA [id number] [place] [address] [place] Potassium [Moles/Vol] 3.5 mmol/L Low 3.7-5.1 [facility] Comment on above: Order Comment: Speci men Type: BLOOD SPECIMENOrdering Facility: [facility] Address: [address] [place] [address] Performed By: #### 2 4323-8 ####[facility] HOSPITALNCLIA [id number] [place] [address] [place] Protein [Mass/Vol] 6.7 g/dL Normal 6.3-8.0 [facility] Comment on above: Order Comment: Speci men Type: BLOOD SPECIMENOrdering Facility: [facility] Address: [address] [place] [address] Performed By: #### 2 4323-8 ####[facility] HOS[facility]ITALNCLIA [id number] [place] [address] [place] Sodium [Moles/Vol] 136 mmol/L Normal 136-144 [facility] Comment on above: Order Comment: Speci men Type: BLOOD SPECIMENOrdering Facility: [facility] Address: [address] [place] [address] Performed By: #### 2 4323-8 ####[facility] [id number] [place] [address] [place] Urea nitrogen [Mass/Vol] 17 mg/dL Normal 7-21 [facility] Comment on above: Order Comment: Speci men Type: BLOOD SPECIMENOrdering Facility: [facility] Address: [address] [place] [address] Performed By: #### 2 4323-8 ####[facility] [id number] [place] [address] [place] HBV core Ab Ser Qlon 022 HBV core Ab Ql (S) Negative Normal Negative [facility] Comment on above: Order Comment: Speci men Type: BLOOD SPECIMENOrdering Facility: [facility] Address: [address] [place] [address] Result Comment: No e vidence of current or past infection with Hepatitis B virus. Should recent infection be suspected, repeat testing may be considered 3-4 weeks after this draw. Performed By: #### 2 2322-2, 54386-3, 91929-4 ####[facility] LABCLIA [id number] [address] [place] HBV surface Ab IA Ql (S)on 0 11-07-2021 HBV surface Ag Ql (S) Negative Normal Negative [facility] Comment on above: Order Comment: Speci men Type: BLOOD SPECIMENOrdering Facility: [facility] Address: [address] [place] [address] Performed By: #### 2 2322-2, 24700-1, 10036-3 ####[facility] LABIA [id number] [address] OF [facility] HBV surface Ab Ser Qlon 04- HBV surface Ab Ql (S) Negative Normal Negative [facility] Comment on above: Order Comment: Speci men Type: BLOOD SPECIMENOrdering Facility: [facility] Address: [address] [place] [address] Result Comment: No e vidence of current or past infection with Hepatitis B virus. Should recent infection be suspected, repeat testing may be considered 3-4 weeks after this draw. Performed By: #### 2 2322-2, 31069-2, 07158-1 ####[facility] LABIA [id number] [address] HCV Ab Ser Qlon 11-07-2021 HCV Ab Ql (S) Negative Normal Negative [facility] Comment on above: Order Comment: Speci men Type: BLOOD SPECIMENOrdering Facility: [facility] Address: [address] [place] [address] Result Comment: The result suggests no evidence of active infection with Hepatitis C virus. Should recent infection be suspected, repeat testing may be considered 4-6 weeks after this draw. Performed By: #### 1 6128-1 ####[facility] LABIA [id number] [address] OF [facility] Gram stain for investigation of transfusion reactionon 10-05-2021 Microscopic observation Gram stain Nom (Unsp spec) [facility] Work Phone: No Panel Informationon 10-05 Nasopharyngeal Culture Haemophilus influenzae [facility] Work Phone: CNPNon 08-20-2021 CNPN Telephone (HEMAWS) CHANEL PRASAD ([id number]) 1960 F Date Time Provider Department 08/20/21 ETHEL JUAREZ During your visit today, we recorded the following information about you: Colleen Jessica Pss 08/20/2021 9:02 AM Signed Patient called requesting to reschedule her treatment scheduled on 08/23 @ 2:30 can be reached @ [phone] Thank you Colleen Bartlettdawson Pss Eve Hannah 08/20/2021 9:07 AM Signed Spoke to pt and r/s. Eve Hannah Allergies As of Date: 08/20/2021 Noted Allergy Reaction AZITHROMYCIN 09/11/2015 11 - Vomiting BALSALAZIDE 03/13/2020 5 - Intolerance Comments: Nausea, body aches, fatigue BUDESONIDE 03/13/2020 5 - Intolerance Comments: Heart palpitations, elevated glucose, nausea CODEINE 09/24/2004 14 - Other: See Comments Comments: Headache, itchy, nausea. FLAGYL (METRONIDAZOLE) 02/18/2020 1 - Mental Status Change LEXAPRO (ESCITALOPRAM OXALATE) 02/18/2020 14 - Other: See Comments Comments: Skin crawling MESALAMINE 02/18/2020 5 - Intolerance Comments: Upset stomach, headace, nausea, flu-like symptoms PENICILLINS 09/09/2017 9 - Itching PHENAZOPYRIDINE 02/18/2020 8 - GI Upset PROBIOTIC (LACTOBACILLUS ACIDOPHI*02/18/2020 16 - Unknown SULFA (SULFONAMIDE ANTIBIOTICS) 02/18/2020 5 - Intolerance SULFUR 02/18/2020 14 - Other: See Comments Comments: Stomach irritation VICODIN (HYDROCODONE-ACETAMINOPHE* 8 - GI Upset WELLBUTRIN (BUPROPION HCL) 02/18/2020 14 - Other: See Comments Comments: Not effective XANAX (ALPRAZOLAM) 02/18/2020 14 - Other: See Comments Comments: Nausea ZINC 10/15/2010 16 - Unknown ZOLOFT (SERTRALINE) 02/18/2020 14 - Other: See Comments Comments: Insomnia, jittery Date Reviewed: 06/28/2021 Reviewed by: Dedra Juárez RN - Fully Assessed Reason for Visit: Appointment Rescheduled [1024] Prescriptions as of 08/20/2021 - gabapentin (NEURONTIN) 600 mg tablet Take 600 mg by mouth three times daily. prn - valACYclovir (VALTREX) 1 gram Take 1,000 mg by mouth once daily. 7 days - traMADol (ULTRAM) 50 mg tablet Take 50 mg by mouth every 6 hours as needed for pain. - budesonide (UCERIS) 9 mg TaDE Take 1 tablet by mouth once daily. - vedolizumab (ENTYVIO) 300 mg injection 300mg IV week 0, week 2, and week 6. - vedolizumab (ENTYVIO) 300 mg injection 300mg Intravenous every 8 weeks. - naproxen sodium (ALEVE) 220 mg tablet Take 220 mg by mouth as needed. uses 3-4 times /month for low back/extremity pain - montelukast (SINGULAIR) 10 mg tablet Take 10 mg by mouth daily at bedtime. - calcium carbonate (TUMS ORAL) Take 1,000 mg by mouth once daily. - acetaminophen (TYLENOL) 325 mg tablet Take 2 tablets by mouth every 4 hours as needed (for pain.). - Fluticasone Furoate 27.5 mcg/actuation nasal spray Use 2 Sprays in each nostril once daily. - inFLIXimab (REMICADE) 100 mg injection Remicade 400mg IV at weeks 0, 2, 6, and every 8 weeks. - predniSONE (DELTASONE) 10 mg tablet Take 2 tablets by mouth once daily. - hydrocortisone (COLOCORT) 100 mg/60 mL enema Use rectally as directed - pantoprazole DR (PROTONIX) 40 mg tablet Take 40 mg by mouth once daily. - levothyroxine (SYNTHROID) 50 mcg tablet Take 50 mcg by mouth once daily. - cholecalciferol (VITAMIN D3) 50 mcg (2,000 unit) tablet Take 1 tablet by mouth once daily. - Ascorbic Acid (VITAMIN C) 250 mg chew Take 500 mg by mouth once daily. - multivitamin with minerals (HAIR,SKIN AND NAILS ORAL) Take by mouth once daily. - polyethylene glycol 3350 (MIRALAX, GLYCOLAX) 17 gram/dose powder Use as directed for Miralax / Gatorade Bowel Prep Kit - Gatorade Sports Drink Use as directed for Miralax / Gatorade Bowel Prep Kit - Omeprazole 40 mg capsule Take 40 mg by mouth as needed. - LORazepam (ATIVAN) 1 mg tablet Take 1 tablet by mouth. take one(1) tablet 1 hour before the MRI, and 1 tablet at the time of the MRI if needed - naproxen (NAPROSYN) 500 mg tablet Take 1 tablet by mouth twice daily as needed (for pain. Take with food.). 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] 08/03/2015 Muscle cramping [R25.2] 08/03/2015 Vitamin D deficiency [E55.9] 08/03/2015 Encounter for colonoscopy due to history of sukumar*01/29/2017 GERD (gastroesophageal reflux disease) [K21.9] Ulcerative colitis (HCC) [K51.90] 03/15/2020 Drug allergy [Z88.9] 03/15/2020 Major depressive disorder, recurrent episode, m*07/02/2021 Psychological factor affecting physical conditi*07/02/2021 Encounter Status:Closed by EVE HANNAH on 08/20/21 Normal [facility] Laboratory - Microbiology an d Antimicrobial susceptibilityon 08-20-2021 SARS-CoV-2 (COVID-19) RNA EULALIA+probe Ql (Unsp spec) Detected Not Detect [facility] Work Phone: Comment on above: Normal Reference Ran ge: Not DetectedMethod:(RT-PCR) real-time reverse transcriptase PCRLuminex MICHELLE Instrument*The Food and Drug Administration (FDA) has issued an Emergency Use Authorization (EAU) for the MICHELLE SARS-CoV-2 Assay for the rapid detection of the virus that causes COVID-19. This test has been validated, but the FDAs independent review of this validation is pending.*Negative results do not preclude infection and should not be used as the sole basis for treatment or patient management. Optimum specimen types and timing for peak viral levels during infections caused by SARS-CoV-2 have not been determined. Collection of multiple specimens from the same patient may be necessary to detect the virus. The possibility of a false negative result should be considered if the patient has clinical presentation or has had recent exposure. CBC and Differentialon 10-18 Abs Baso 0.08 k/uL Normal <0.11 [facility] Comment on above: Performed By: #### C MP, TSH, LIPA, CBCDIF, VITD #### [facility] [address] [phone] Abs Nobles 0.35 k/uL Normal <0.87 [facility] Comment on above: Performed By: #### C MP, TSH, LIPA, CBCDIF, VITD #### [facility] [address] [phone] Abs Neut 2.69 k/uL Normal 1.45-7.50 [facility] Comment on above: Performed By: #### C MP, TSH, LIPA, CBCDIF, VITD #### [facility] [address] [phone] Absolute nRBC <0.01 Normal <0.01 [facility] Comment on above: Performed By: #### C MP, TSH, LIPA, CBCDIF, VITD #### [facility] [phone] Basophils/100 WBC (Bld) 1.4 % Normal [facility] Comment on above: Performed By: #### C MP, TSH, LIPA, CBCDIF, VITD #### [facility] [phone] DTYPE ADIFF Normal [facility] Comment on above: Performed By: #### C MP, TSH, LIPA, CBCDIF, VITD #### [facility] [address] [phone] Eosinophils (Bld) [#/Vol] 0.25 10*3/uL Normal <0.46 [facility] Comment on above: Performed By: #### C MP, TSH, LIPA, CBCDIF, VITD #### [facility] [address] [phone] Eosinophils/100 WBC (Bld) 4.4 % Normal [facility] Comment on above: Performed By: #### C MP, TSH, LIPA, CBCDIF, VITD #### [facility] [address] [phone] Erythrocyte distribution width (RBC) [Ratio] 17.1 % High 11.5-15.0 [facility] Comment on above: Performed By: #### C MP, TSH, LIPA, CBCDIF, VITD #### [facility] [address] [phone] Hematocrit (Bld) [Volume fraction] 37.9 % Normal 36.0-46.0 [facility] Comment on above: Performed By: #### C MP, TSH, LIPA, CBCDIF, VITD #### [facility] [address] [phone] Hemoglobin (Bld) [Mass/Vol] 11.5 g/dL Normal 11.5-15.5 [facility] Comment on above: Performed By: #### C MP, TSH, LIPA, CBCDIF, VITD #### [facility] [address] [phone] Lymphocytes (Bld) [#/Vol] 2.25 10*3/uL Normal 1.00-4.00 [facility] Comment on above: Performed By: #### C MP, TSH, LIPA, CBCDIF, VITD #### [facility] [place] [facility] [address] [place], [place] [address] Lymphocytes/100 WBC (Bld) 39.9 % Normal [facility] Comment on above: Performed By: #### C MP, TSH, LIPA, CBCDIF, VITD #### [facility] [place] [facility] [address] [place], [place] [address] MCH (RBC) [Entitic mass] 25.9 pG Low 26.0-34.0 [facility] Comment on above: Performed By: #### C MP, TSH, LIPA, CBCDIF, VITD #### [facility] [place] [facility] [address] [place], [place] [address] MCHC (RBC) [Mass/Vol] 30.3 g/dL Low 30.5-36.0 [facility] Comment on above: Performed By: #### C MP, TSH, LIPA, CBCDIF, VITD #### [facility] [place] [facility] [address] [place], [place] [address] MCV (RBC) [Entitic vol] 85.4 fL Normal 80.0-100.0 [facility] Comment on above: Performed By: #### C MP, TSH, LIPA, CBCDIF, VITD #### [facility] [place] [facility] [address] [place], [place] [address] Monocytes/100 WBC (Bld) 6.2 % Normal [facility] Comment on above: Performed By: #### C MP, TSH, LIPA, CBCDIF, VITD #### [facility] [place] [facility] [address] [place], [place] [address] Neutrophils/100 WBC (Bld) 48.1 % Normal [facility] Comment on above: Performed By: #### C MP, TSH, LIPA, CBCDIF, VITD #### [facility] [place] [facility] [address] [place], [place] [address] NRBCs 0.0 /100 WBC Normal 0 [facility] Comment on above: Performed By: #### C MP, TSH, LIPA, CBCDIF, VITD #### [facility] [place] [facility] [address] [address] Platelet mean volume (Bld) [Entitic vol] 11.1 fL Normal 9.0-12.7 [facility] Comment on above: Performed By: #### C MP, TSH, LIPA, CBCDIF, VITD #### [facility] [address] [address] Platelets (Bld) [#/Vol] 298 10*3/uL Normal 150-400 [facility] Comment on above: Performed By: #### C MP, TSH, LIPA, CBCDIF, VITD #### [facility] [address] [place] [address] RBC (Bld) [#/Vol] 4.44 10*6/uL Normal 3.90-5.20 [facility] Comment on above: Performed By: #### C MP, TSH, LIPA, CBCDIF, VITD #### [facility] [address] [place] [address] WBC (Bld) [#/Vol] 5.64 10*3/uL Normal 3.70-11.00 [facility] Comment on above: Performed By: #### C MP, TSH, LIPA, CBCDIF, VITD #### [facility] [address] [place] [address] Comp Metabolic Panelon 10-18 Albumin [Mass/Vol] 3.9 g/dL Normal 3.9-4.9 [facility] Comment on above: Performed By: #### C MP, TSH, LIPA, CBCDIF, VITD #### [facility] [address] [place] [address] ALP [Catalytic activity/Vol] 80 U/L Normal 34-123 [facility] Comment on above: Performed By: #### C MP, TSH, LIPA, CBCDIF, VITD #### [facility] [place] [facility] [address] [place], [place] [address] ALT [Catalytic activity/Vol] 6 U/L Low 7-38 [facility] Comment on above: Performed By: #### C MP, TSH, LIPA, CBCDIF, VITD #### [facility] [place] [facility] [address] [address] Anion gap [Moles/Vol] 10 mmol/L Normal 9-18 [facility] Comment on above: Performed By: #### C MP, TSH, LIPA, CBCDIF, VITD #### [facility] [address] [address] AST [Catalytic activity/Vol] 12 U/L Low 13-35 [facility] Comment on above: Performed By: #### C MP, TSH, LIPA, CBCDIF, VITD #### [facility] [address] [phone] Bilirubin Ql (U) 0.4 mg/dL Normal 0.2-1.3 [facility] Comment on above: Performed By: #### C MP, TSH, LIPA, CBCDIF, VITD #### [facility] [address] [phone] Calcium [Mass/Vol] 8.9 mg/dL Normal 8.5-10.2 [facility] Comment on above: Performed By: #### C MP, TSH, LIPA, CBCDIF, VITD #### [facility] [place] [facility] [address] [place], [place] [address] Chloride [Moles/Vol] 108 mmol/L High 97-105 [facility] Comment on above: Performed By: #### C MP, TSH, LIPA, CBCDIF, VITD #### [facility] [place] [facility] [address] [address] CO2 [Moles/Vol] 23 mmol/L Normal 22-30 [facility] Comment on above: Performed By: #### C MP, TSH, LIPA, CBCDIF, VITD #### [facility] [address] [address] Creatinine [Mass/Vol] 0.76 mg/dL Normal 0.58-0.96 [facility] Comment on above: Performed By: #### C MP, TSH, LIPA, CBCDIF, VITD #### [facility] [address] [address] eGFR- Amer. >60 Normal [facility] Comment on above: Performed By: #### C MP, TSH, LIPA, CBCDIF, VITD #### [facility] [address] [address] GFR/1.73 sq M predicted among non-blacks MDRD (S/P/Bld) [Vol rate/Area] mL/min/{1.73_m2} Normal [facility] Comment on above: Performed By: #### C MP, TSH, LIPA, CBCDIF, VITD #### [facility] [address] [phone] Glucose [Mass/Vol] 88 mg/dL Normal 74-99 [facility] Comment on above: Performed By: #### C MP, TSH, LIPA, CBCDIF, VITD #### [facility] [address] [address] Potassium [Moles/Vol] 4.0 mmol/L Normal 3.7-5.1 [facility] Comment on above: Performed By: #### C MP, TSH, LIPA, CBCDIF, VITD #### [facility] Lab [address] [address] Protein [Mass/Vol] 6.7 g/dL Normal 6.3-8.0 [facility] Comment on above: Performed By: #### C MP, TSH, LIPA, CBCDIF, VITD #### [facility] [address] [address] Sodium [Moles/Vol] 141 mmol/L Normal 136-144 [facility] Comment on above: Performed By: #### C MP, TSH, LIPA, CBCDIF, VITD #### [facility] [address] [place] [address] Urea nitrogen [Mass/Vol] 14 mg/dL Normal 7-21 [facility] Comment on above: Performed By: #### C MP, TSH, LIPA, CBCDIF, VITD #### [facility] [address] [place] [address] Lipaseon 10-18-2020 Lipase [Catalytic activity/Vol] 23 U/L Normal 16-61 [facility] Comment on above: Performed By: #### C MP, TSH, LIPA, CBCDIF, VITD #### [facility] [place] [facility] [address] [place], [place] [address] TSHon 10-18-2020 TSH Qn 2.950 uU/mL Normal 0.270-4.20 0 [facility] Comment on above: Performed By: #### C MP, TSH, LIPA, CBCDIF, VITD #### [facility] [address] [address] Vitamin D 25 Hydroxyon 10-18 Vitamin D 25 Hydroxy 29.2 ng/mL Low 31.0-80.0 [facility] Comment on above: Performed By: #### C MP, TSH, LIPA, CBCDIF, VITD #### [facility] [address] [id number] .Auto Diffon 02-02-2019 Ammonia (P) [Mass/Vol] 0.40 10 3/mcL Normal 0.15-1.00 [facility] ([place]) Comment on above: Performed By: #### C BC, ADIFF, ANEU #### [place] [address] #### FES, B12, FERR, FOL, ESR, CRP #### [address] [address] Basophils (Bld) [#/Vol] 0.00 10 3/mcL Normal 0.00-0.19 [facility] ([place]) Comment on above: Performed By: #### C STEVEN, KEVINIFF, ANEU #### [place] [address] #### FES, B12, FERR, FOL, ESR, CRP #### [address] [address] Basophils/100 WBC (Bld) 0.5 % Normal 0.0-2.5 [facility] ([place]) Comment on above: Performed By: #### C STEVEN, ADIFF, ANEU #### [place] [address] #### FES, B12, FERR, FOL, ESR, CRP #### [address] [address] Eosinophils (Bld) [#/Vol] 0.10 10 3/mcL Normal 0.00-0.40 [facility] ([place] Comment on above: Performed By: #### C BC, ADIFF, ANEU #### [place] [address] #### FES, B12, FERR, FOL, ESR, CRP #### [address] [address] Eosinophils/100 WBC (Bld) 0.6 % Normal 0.0-7.0 [facility] ([place]) Comment on above: Performed By: #### C BC, ADIFF, ANEU #### [place] [address] #### FES, B12, FERR, FOL, ESR, CRP #### [address] [address] Lymphocytes (Bld) [#/Vol] 1.50 10 3/mcL Normal 0.77-3.85 [facility] ([place]) Comment on above: Performed By: #### C BC, ADIFF, ANEU #### [place] [address] #### FES, B12, FERR, FOL, ESR, CRP #### [address] [address] Lymphocytes/100 WBC (Bld) 14.9 % Normal 10.0-50.0 [facility] ([place]) Comment on above: Performed By: #### C BC, ADIFF, ANEU #### [place] [address] #### FES, B12, FERR, FOL, ESR, CRP #### [address] [address] Monocytes/100 WBC (Bld) 3.9 % Normal 1.7-13.0 [facility] ([place]) Comment on above: Performed By: #### C BC, ADIFF, ANEU #### [place] [address] #### FES, B12, FERR, FOL, ESR, CRP #### [address] [address] Neutrophils/100 WBC (Bld) 80.1 % High 37.0-80.0 [facility] ([place]) Comment on above: Performed By: #### C BC, ADIFF, ANEU #### [place] [address] #### FES, B12, FERR, FOL, ESR, CRP #### [address] [address] .NEUABSon 02-02-2019 Neutrophils (Bld) [#/Vol] 8.20 10 3/mcL High 2.85-6.16 [facility] ([place]) Comment on above: Performed By: #### C BC, ADIFF, ANEU #### [address] [address] #### FES, B12, FERR, FOL, ESR, CRP #### [address] [address] CBCon 02-02-2019 Erythrocyte distribution width (RBC) [Ratio] 17.3 % High 11.5-14.5 [facility] ([place] Comment on above: Performed By: #### CODY WELLER, ANEU #### [address] [address] Hematocrit (Bld) [Volume fraction] 40.2 % Normal 37.0-47.0 [facility] ([place] Comment on above: Performed By: #### CODY WELLER, ANEU #### [address] [address] Hemoglobin (Bld) [Mass/Vol] 13.1 G/dL Normal 12.0-16.0 [facility] ([place] Comment on above: Performed By: #### CODY WELLER, ANEU #### [address] [address] MCH (RBC) [Entitic mass] 28.4 pg Normal 27.0-31.2 [facility] ([place] Comment on above: Performed By: #### CODY WELLER, ANEU #### [address] [address] MCHC (RBC) [Mass/Vol] 32.7 G/dL Low 33.0-37.0 [facility] ([place]) Comment on above: Performed By: #### CODY WELLER, ANEU #### [address] [address] MCV (RBC) [Entitic vol] 86.9 fL Normal 80.0-94.0 [facility] ([place] Comment on above: Performed By: #### CODY WELLER, ANEU #### [address] [address] Platelet mean volume (Bld) [Entitic vol] 7.6 fL Normal 7.4-10.4 [facility] ([place] Comment on above: Performed By: #### CODY WELLER ANEU #### [address] [address] Platelets (Bld) [#/Vol] 286 10 3/mcL Normal 130-400 [facility] ([place] Comment on above: Performed By: #### CODY WELLER, ANEU #### [address] [address] RBC (Bld) [#/Vol] 4.62 10 6/mcL Normal 4.20-5.40 [facility] ([place]) Comment on above: Performed By: #### CODY WELLER ANEU #### [address] [address] WBC (Bld) [#/Vol] 10.20 10 3/mcL Normal 4.60-10.80 [facility] ([place] Comment on above: Performed By: #### CODY WELLER, ANEU #### [address] [address] CRPon 12-28-2018 CRP [Mass/Vol] 1.19 mg/dL High <=0.80 [facility] ([place] Comment on above: Performed By: #### CODY WELLER ANEU #### [place] [address] #### FES, B12, FERR, FOL, ESR, CRP #### [place] [address] ESRon 12-26-2018 ESR (Bld) [Velocity] 26 mm/h Normal 0-30 [facility] ([place] Comment on above: Performed By: #### CODY WELLER, ANEU #### [place] [address] #### FES, B12, FERR, FOL, ESR, CRP #### [place] [address] .Auto Diffon 12-25-2018 Ammonia (P) [Mass/Vol] 0.60 10 3/mcL Normal 0.15-1.00 [facility] ([place]) Comment on above: Performed By: #### C BC, ADIFF, ANEU #### [place] [address] #### FES, B12, FERR, FOL, ESR, CRP #### [address] [address] Basophils (Bld) [#/Vol] 0.00 10 3/mcL Normal 0.00-0.19 [facility] ([place]) Comment on above: Performed By: #### C BC, ADIFF, ANEU #### [place] [address] #### FES, B12, FERR, FOL, ESR, CRP #### [address] [address] Basophils/100 WBC (Bld) 0.5 % Normal 0.0-2.5 [facility] ([place] Comment on above: Performed By: #### C STEVEN, ADIFF, ANEU #### [place] [address] #### FES, B12, FERR, FOL, ESR, CRP #### [address] [address] Eosinophils (Bld) [#/Vol] 0.00 10 3/mcL Normal 0.00-0.40 [facility] ([place] Comment on above: Performed By: #### C STEVEN, CODY, ANEU #### [place] [address] #### FES, B12, FERR, FOL, ESR, CRP #### [address] [address] Eosinophils/100 WBC (Bld) 0.4 % Normal 0.0-7.0 [facility] ([place] Comment on above: Performed By: #### C BC, ADIFF, ANEU #### [place] [address] #### FES, B12, FERR, FOL, ESR, CRP #### [address] [address] Lymphocytes (Bld) [#/Vol] 1.90 10 3/mcL Normal 0.77-3.85 [facility] ([place]) Comment on above: Performed By: #### C BC, ADIFF, ANEU #### [place] [address] #### FES, B12, FERR, FOL, ESR, CRP #### [address] [address] Lymphocytes/100 WBC (Bld) 31.1 % Normal 10.0-50.0 [facility] ([place]) Comment on above: Performed By: #### C BC, ADIFF, ANEU #### [place] [address] #### FES, B12, FERR, FOL, ESR, CRP #### [address] [address] Monocytes/100 WBC (Bld) 9.3 % Normal 1.7-13.0 [facility] ([place]) Comment on above: Performed By: #### C BC, ADIFF, ANEU #### [place] [address] #### FES, B12, FERR, FOL, ESR, CRP #### [address] [address] Neutrophils/100 WBC (Bld) 58.7 % Normal 37.0-80.0 [facility] ([place]) Comment on above: Performed By: #### C BC, ADIFF, ANEU #### [place] [address] #### FES, B12, FERR, FOL, ESR, CRP #### [address] [address] .NEUABSon 12-25-2018 Neutrophils (Bld) [#/Vol] 3.60 10 3/mcL Normal 2.85-6.16 [facility] ([place]) Comment on above: Performed By: #### C BC, ADIFF, ANEU #### [place] [address] #### FES, B12, FERR, FOL, ESR, CRP #### [address] [address] B12on 12-25-2018 Cobalamin (Vitamin B12) [Mass/Vol] 337 pg/mL Normal 211-911 [facility] ([place] Comment on above: Performed By: #### C CODY HARRIS, ANEU #### [address] [address] #### FES, B12, FERR, FOL, ESR, CRP #### [place] [address] CBCon 12-25-2018 Erythrocyte distribution width (RBC) [Ratio] 16.0 % High 11.5-14.5 [facility] ([place]) Comment on above: Performed By: #### CODY WELLER, ANEU #### [place] [address] #### FES, B12, FERR, FOL, ESR, CRP #### [place] [address] Hematocrit (Bld) [Volume fraction] 30.6 % Low 37.0-47.0 [facility] ([place]) Comment on above: Performed By: #### CODY WELLER, ANEU #### [place] [address] #### FES, B12, FERR, FOL, ESR, CRP #### [place] [address] Hemoglobin (Bld) [Mass/Vol] 10.3 G/dL Low 12.0-16.0 [facility] ([place] Comment on above: Performed By: #### C CODY HARRIS, ANEU #### [place] [address] #### FES, B12, FERR, FOL, ESR, CRP #### [place] [address] MCH (RBC) [Entitic mass] 28.8 pg Normal 27.0-31.2 [facility] ([place] Comment on above: Performed By: #### CODY WELLER, ANEU #### [place] [address] #### FES, B12, FERR, FOL, ESR, CRP #### [address] [address] MCHC (RBC) [Mass/Vol] 33.8 G/dL Normal 33.0-37.0 [facility] ([place] Comment on above: Performed By: #### C CODY HARRIS, ANEU #### [place] [address] #### FES, B12, FERR, FOL, ESR, CRP #### [place] [address] MCV (RBC) [Entitic vol] 85.4 fL Normal 80.0-94.0 [facility] ([place] Comment on above: Performed By: #### C CODY HARRIS, ANEU #### [place] [address] #### FES, B12, FERR, FOL, ESR, CRP #### [place] [address] Platelet mean volume (Bld) [Entitic vol] 7.8 fL Normal 7.4-10.4 [facility] ([place] Comment on above: Performed By: #### C CODY HARRIS, ANEU #### [place] [address] #### FES, B12, FERR, FOL, ESR, CRP #### [place] [id number] Platelets (Bld) [#/Vol] 244 10 3/mcL Normal 130-400 [facility] ([place] Comment on above: Performed By: #### C CODY HARRIS, ANEU #### [place] [address] #### FES, B12, FERR, FOL, ESR, CRP #### [place] [address] RBC (Bld) [#/Vol] 3.58 10 6/mcL Low 4.20-5.40 [facility] ([place] Comment on above: Performed By: #### C KEVIN HARRISIFF, ANEU #### [place] [address] #### FES, B12, FERR, FOL, ESR, CRP #### [place] [address] WBC (Bld) [#/Vol] 6.10 10 3/mcL Normal 4.60-10.80 [facility] ([place] Comment on above: Performed By: #### C KEVIN HARRISIFF, ANEU #### [place] [address] #### FES, B12, FERR, FOL, ESR, CRP #### [place] [address] Danny 12-25-2018 Ferritin [Mass/Vol] 92 ng/mL Normal 8-252 Counts include 234 beds at the [facility] ([place] Comment on above: Performed By: #### C CODY HARRIS, ANEU #### [place] [address] #### FES, B12, FERR, FOL, ESR, CRP #### [place] [address] FESon 12-25-2018 Iron [Mass/Vol] 46 ug/dL Low 50-70 [facility] ([place] Comment on above: Performed By: #### C CODY HARRIS, ANEU #### [place] [address] #### FES, B12, FERR, FOL, ESR, CRP #### [place] [address] Iron Sat 21 % Normal [facility] ([place] Comment on above: Performed By: #### C CODY HARRIS, ANEU #### [place] [address] #### FES, B12, FERR, FOL, ESR, CRP #### [place] [address] TIBC 215 mcg/dL Low 250-450 [facility] ([place] Comment on above: Performed By: #### C KEVIN HARRISIFF, ANEU #### [place] [address] [place], [place] [address] #### FES, B12, FERR, FOL, ESR, CRP #### [address] [address] FOLon 12-25-2018 Folate 7.9 ng/mL Normal 1.1-20.0 [facility] ([place] Comment on above: Performed By: #### C BC, ADIFF, ANEU #### [address] [address] #### FES, B12, FERR, FOL, ESR, CRP #### [address] [address] No Panel Information [facility] Bacter[facility] Work Phone: Giardia Antigen ([facility]) [facility] Work Phone: Vital Signs Date Time Vital Sign Value Performing Clinician Facility 06-10-2022 14:09-0500 Body temperature 96.6 [degF] Dr. Ailx Zavala Work Phone: [facility] Work Phone: 06-10-2022 14:09-0500 Body weight 75.[address] Alix Zavala Work Phone: [facility] Work Phone: 06-10-2022 14:09-0500 Diastolic blood pressure 108 mm[Hg] Dr. Alix Zavala Work Phone: [facility] Work Phone: 06-10-2022 14:09-0500 Heart rate 110 /min Dr. Alix Zavala Work Phone: [facility] Work Phone: 06-10-2022 14:09-0500 Respiratory rate 16 /min Dr. Alix Zavala Work Phone: [facility] Work Phone: 06-10-2022 14:09-0500 SaO2% (BldA) [Mass fraction] 98 % Dr. Alix Zavala Work Phone: [facility] Work Phone: 06-10-2022 14:09-0500 Systolic blood pressure 162 mm[Hg] Dr. Alix Zavala Work Phone: [facility] Work Phone: 05-31-2022 17:02-0500 Body temperature 98.2 [degF] Maryjane Athy PA-C Work Phone: [facility] 05-31-2022 17:02-0500 Body weight 75.39 kg Maryjane Athy PA-C Work Phone: [facility] 05-31-2022 17:02-0500 Diastolic blood pressure 78 mm[Hg] Maryjane Athy PA-C Work Phone: [facility] 05-31-2022 17:02-0500 Heart rate 118 /min Maryjane Athy PA-C Work Phone: [facility] 05-31-2022 17:02-0500 Respiratory rate 18 /min Maryjane Athy PA-C Work Phone: [facility] 05-31-2022 17:02-0500 SaO2% (BldA) [Mass fraction] 98 % Maryjane Athy PA-C Work Phone: [facility] 05-31-2022 17:02-0500 Systolic blood pressure 146 mm[Hg] Maryjane Athy PA-C Work Phone: [facility] 05-27-2022 14:25-0500 Body height 162.[address] Alix Zavala Work Phone: [facility] Work Phone: 05-27-2022 14:25-0500 Body mass index (BMI) [Ratio] 28.7 kg/m2 Dr. Alix Zavala Work Phone: [facility] Work Phone: 05-27-2022 14:25-0500 Body weight 75.[address] Alix Zavala Work Phone: [facility] Work Phone: 05-27-2022 14:25-0500 Diastolic blood pressure 87 mm[Hg] Dr. Alix Zavala Work Phone: [facility] Work Phone: 05-27-2022 14:25-0500 Heart rate 108 /min Dr. Alix Zavala Work Phone: [facility] Work Phone: 05-27-2022 14:25-0500 Respiratory rate 16 /min Dr. Alix Zavala Work Phone: [facility] Work Phone: 05-27-2022 14:25-0500 SaO2% (BldA) [Mass fraction] 97 % Dr. Alix Zavala Work Phone: [facility] Work Phone: 05-27-2022 14:25-0500 Systolic blood pressure 122 mm[Hg] Dr. Alix Zavala Work Phone: [facility] Work Phone: 05-03-2022 12:50-0400 Diastolic blood pressure 74 mm[Hg] Dr. Alix Zavala Work Phone: [facility] Work Phone: 05-03-2022 12:50-0400 Heart rate 90 /min Dr. Alix Zavala Work Phone: [facility] Work Phone: 05-03-2022 12:50-0400 Respiratory rate 16 /min Dr. Alix Zavala Work Phone: [facility] Work Phone: 05-03-2022 12:50-0400 Systolic blood pressure 122 mm[Hg] Dr. Alix Zavala Work Phone: [facility] Work Phone: 05-03-2022 11:02-0400 SaO2% (BldA) [Mass fraction] 94 % Dr. Alix Zavala Work Phone: [facility] Work Phone: 04-25-2022 08:36-0400 Body height 162.[address] Alix Zavala Work Phone: [facility] Work Phone: 04-25-2022 08:36-0400 Body mass index (BMI) [Ratio] 28.5 kg/m2 Dr. Alix Zavala Work Phone: [facility] Work Phone: 04-25-2022 08:36-0400 Body temperature 98.4 [degF] Dr. Alix Zavala Work Phone: [facility] Work Phone: 04-25-2022 08:36-0400 Body weight 75.[address] Alix Zavala Work Phone: [facility] Work Phone: 04-25-2022 08:36-0400 Diastolic blood pressure 78 mm[Hg] Dr. Alix Zavala Work Phone: [facility] Work Phone: 04-25-2022 08:36-0400 Heart rate 118 /min Dr. Alix Zavala Work Phone: [facility] Work Phone: 04-25-2022 08:36-0400 Respiratory rate 16 /min Dr. Alix Zavala Work Phone: [facility] Work Phone: 04-25-2022 08:36-0400 SaO2% (BldA) [Mass fraction] 98 % Dr. Alix Zavala Work Phone: [facility] Work Phone: 04-25-2022 08:36-0400 Systolic blood pressure 130 mm[Hg] Dr. Alix Zavala Work Phone: [facility] Work Phone: 03-21-2022 06:47-0400 SaO2% (BldA) [Mass fraction] 94 % Dr. Alix Zavala Work Phone: [facility] Work Phone: 03-21-2022 02:30-0400 Body temperature 98.3 [degF] Dr. Alix Zavala Work Phone: [facility] Work Phone: 03-21-2022 02:30-0400 Diastolic blood pressure 80 mm[Hg] Dr. Alix Zavala Work Phone: [facility] Work Phone: 03-21-2022 02:30-0400 Heart rate 90 /min Dr. Alix Zavala Work Phone: [facility] Work Phone: 03-21-2022 02:30-0400 Respiratory rate 14 /min Dr. Alix Zavala Work Phone: [facility] Work Phone: 03-21-2022 02:30-0400 Systolic blood pressure 127 mm[Hg] Dr. Alix Zavala Work Phone: [facility] Work Phone: 03-19-2022 19:46-0400 Body temperature 98.5 [degF] Dr. Alix Zavala Work Phone: [facility] Work Phone: 03-19-2022 19:46-0400 Diastolic blood pressure 77 mm[Hg] Dr. Alix Zavala Work Phone: [facility] Work Phone: 03-19-2022 19:46-0400 Heart rate 106 /min Dr. Alix Zavala Work Phone: [facility] Work Phone: 03-19-2022 19:46-0400 Respiratory rate 16 /min Dr. Alix Zavala Work Phone: [facility] Work Phone: 03-19-2022 19:46-0400 SaO2% (BldA) [Mass fraction] 94 % Dr. Ailx Zavala Work Phone: [facility] Work Phone: 03-19-2022 19:46-0400 Systolic blood pressure 141 mm[Hg] Dr. Alix Zavala Work Phone: [facility] Work Phone: 03-19-2022 16:25-0400 Body height 162.[address] Alix Zavala Work Phone: [facility] Work Phone: 03-19-2022 16:25-0400 Body weight 71.[address] Alix Zavala Work Phone: [facility] Work Phone: 03-19-2022 12:29-0400 Body mass index (BMI) [Ratio] 27.1 kg/m2 Dr. Alix Zavala Work Phone: [facility] Work Phone: 03-19-2022 11:30-0400 Body temperature 97.1 [degF] Dr. Alix Zavala Work Phone: [facility] Work Phone: 03-19-2022 11:30-0400 Diastolic blood pressure 69 mm[Hg] Dr. Alix Zavala Work Phone: [facility] Work Phone: 03-19-2022 11:30-0400 Heart rate 103 /min Dr. Alix Zavala Work Phone: [facility] Work Phone: 03-19-2022 11:30-0400 Respiratory rate 15 /min Dr. Alix Zavala Work Phone: [facility] Work Phone: 03-19-2022 11:30-0400 SaO2% (BldA) [Mass fraction] 96 % Dr. Alix Zavala Work Phone: [facility] Work Phone: 03-19-2022 11:30-0400 Systolic blood pressure 125 mm[Hg] Dr. Alix Zavala Work Phone: [facility] Work Phone: 03-19-2022 09:32-0400 Body height 162.[address] Alix Zavala Work Phone: [facility] Work Phone: 03-19-2022 09:32-0400 Body mass index (BMI) [Ratio] 26.1 kg/m2 Dr. Alix Zavala Work Phone: [facility] Work Phone: 03-19-2022 09:32-0400 Body weight 68.[address] Alix Zavala Work Phone: [facility] Work Phone: 03-04-2022 12:06-0400 Diastolic blood pressure 61 mm[Hg] Dr. Alix Zavala Work Phone: [facility] Work Phone: 03-04-2022 12:06-0400 Systolic blood pressure 121 mm[Hg] Dr. Alix Zavala Work Phone: [facility] Work Phone: 03-04-2022 11:00-0400 Heart rate 89 /min Dr. Alix Zavala Work Phone: [facility] Work Phone: 03-04-2022 11:00-0400 Respiratory rate 16 /min Dr. Alix Zavala Work Phone: [facility] Work Phone: 03-04-2022 11:00-0400 SaO2% (BldA) [Mass fraction] 96 % Dr. Alix Zavala Work Phone: [facility] Work Phone: 03-04-2022 09:50-0400 Body temperature 98 [degF] Dr. Alix Zavala Work Phone: [facility] Work Phone: 03-04-2022 09:20-0400 Body mass index (BMI) [Ratio] 27.4 kg/m2 Dr. Alix Zavala Work Phone: [facility] Work Phone: 03-04-2022 09:20-0400 Body weight 72.[address] Alix Zavala Work Phone: [facility] Work Phone: 02-14-2022 14:25-0400 Body temperature 96.69 [degF] Treatment Wstr Work Phone: [facility] 02-14-2022 14:25-0400 Diastolic blood pressure 83 mm[Hg] Treatment Wstr Work Phone: [facility] 02-14-2022 14:25-0400 Heart rate 107 /min Treatment Wstr Work Phone: [facility] 02-14-2022 14:25-0400 Systolic blood pressure 155 mm[Hg] Treatment Wstr Work Phone: [facility] 02-14-2022 09:47-0400 Body mass index (BMI) [Ratio] 28.6 kg/m2 Dr. Alix Zavala Work Phone: [facility] Work Phone: 02-14-2022 09:47-0400 Body weight 75.[address] Alix Zavala Work Phone: [facility] Work Phone: 02-14-2022 09:47-0400 Diastolic blood pressure 78 mm[Hg] Dr. Alix Zavala Work Phone: [facility] Work Phone: 02-14-2022 09:47-0400 Heart rate 116 /min Dr. Alix Zavala Work Phone: [facility] Work Phone: 02-14-2022 09:47-0400 Respiratory rate 20 /min Dr. Alix Zavala Work Phone: [facility] Work Phone: 02-14-2022 09:47-0400 SaO2% (BldA) [Mass fraction] 96 % Dr. Alix Zavala Work Phone: [facility] Work Phone: 02-14-2022 09:47-0400 Systolic blood pressure 116 mm[Hg] Dr. Alix Zavala Work Phone: [facility] Work Phone: 12-20-2021 15:23-0400 Body temperature 97.5 [degF] Treatment Wstr Work Phone: [facility] 12-20-2021 15:23-0400 Diastolic blood pressure 58 mm[Hg] Treatment Wstr Work Phone: [facility] 12-20-2021 15:23-0400 Heart rate 83 /min Treatment Wstr Work Phone: [facility] 12-20-2021 15:23-0400 Systolic blood pressure 123 mm[Hg] Treatment Wstr Work Phone: [facility] 12-18-2021 11:41-0400 Body temperature 98.6 [degF] Dr. Alix Zavala Work Phone: [facility] Work Phone: 12-18-2021 11:41-0400 Diastolic blood pressure 92 mm[Hg] Dr. Alix Zavala Work Phone: [facility] Work Phone: 12-18-2021 11:41-0400 Heart rate 101 /min Dr. Alix Zavala Work Phone: [facility] Work Phone: 12-18-2021 11:41-0400 Respiratory rate 16 /min Dr. Alix Zavala Work Phone: [facility] Work Phone: 12-18-2021 11:41-0400 SaO2% (BldA) [Mass fraction] 96 % Dr. Alix Zavala Work Phone: [facility] Work Phone: 12-18-2021 11:41-0400 Systolic blood pressure 140 mm[Hg] Dr. Alix Zavala Work Phone: [facility] Work Phone: 12-12-2021 14:17-0400 Body height 162.[address] Alix Zavala Work Phone: [facility] Work Phone: 12-12-2021 14:17-0400 Diastolic blood pressure 78 mm[Hg] Dr. Alix Zavala Work Phone: [facility] Work Phone: 12-12-2021 14:17-0400 Respiratory rate 16 /min Dr. Alix Zavala Work Phone: [facility] Work Phone: 12-12-2021 14:17-0400 Systolic blood pressure 114 mm[Hg] Dr. Alix Zavala Work Phone: [facility] Work Phone: 12-07-2021 13:06-0400 Body mass index (BMI) [Ratio] 29.3 kg/m2 Dr. Alix Zavala Work Phone: [facility] Work Phone: 12-07-2021 13:06-0400 Body temperature 97.2 [degF] Dr. Alix Zavala Work Phone: [facility] Work Phone: 12-07-2021 13:06-0400 Body weight 77.[address] Alix Zavala Work Phone: [facility] Work Phone: 12-07-2021 13:06-0400 Diastolic blood pressure 82 mm[Hg] Dr. Alix Zavala Work Phone: [facility] Work Phone: 12-07-2021 13:06-0400 Heart rate 90 /min Dr. Alix Zavala Work Phone: [facility] Work Phone: 12-07-2021 13:06-0400 Respiratory rate 16 /min Dr. Alix Zavala Work Phone: [facility] Work Phone: 12-07-2021 13:06-0400 SaO2% (BldA) [Mass fraction] 97 % Dr. Alix Zavala Work Phone: [facility] Work Phone: 12-07-2021 13:06-0400 Systolic blood pressure 122 mm[Hg] Dr. Alix Zavala Work Phone: [facility] Work Phone: 12-07-2021 13:06-0400 Body height 162.[address] Alix Zavala Work Phone: [facility] Work Phone: 12-07-2021 13:06-0400 Body mass index (BMI) [Ratio] 29.3 kg/m2 Dr. Alix Zavala Work Phone: [facility] Work Phone: 12-07-2021 13:06-0400 Body temperature 97.2 [degF] Dr. Alix Zavala Work Phone: [facility] Work Phone: 12-07-2021 13:06-0400 Body weight 77.[address] Alix Zavala Work Phone: [facility] Work Phone: 12-07-2021 13:06-0400 Diastolic blood pressure 82 mm[Hg] Dr. Alix Zavala Work Phone: [facility] Work Phone: 12-07-2021 13:06-0400 Heart rate 90 /min Dr. Alix Zavala Work Phone: [facility] Work Phone: 12-07-2021 13:06-0400 Respiratory rate 16 /min Dr. Alix Zavala Work Phone: [facility] Work Phone: 12-07-2021 13:06-0400 SaO2% (BldA) [Mass fraction] 97 % Dr. Alix Zavala Work Phone: [facility] Work Phone: 12-07-2021 13:06-0400 Systolic blood pressure 122 mm[Hg] Dr. Alix Zavala Work Phone: [facility] Work Phone: 11-20-2021 14:01-0400 Body mass index (BMI) [Ratio] 29.7 kg/m2 Dr. Alix Zavala Work Phone: [facility] Work Phone: 11-20-2021 14:01-0400 Body weight 78.[address] Alix Zavala Work Phone: [facility] Work Phone: 11-20-2021 14:01-0400 Diastolic blood pressure 78 mm[Hg] Dr. Alix Zavala Work Phone: [facility] Work Phone: 11-20-2021 14:01-0400 Respiratory rate 18 /min Dr. Alix Zavala Work Phone: [facility] Work Phone: 11-20-2021 14:01-0400 Systolic blood pressure 143 mm[Hg] Dr. Alix Zavala Work Phone: [facility] Work Phone: 11-20-2021 14:01-0400 Body height 162.[address] Alix Zavala Work Phone: [facility] Work Phone: 11-20-2021 14:01-0400 Body mass index (BMI) [Ratio] 29.7 kg/m2 Dr. Alix Zavala Work Phone: [facility] Work Phone: 11-20-2021 14:01-0400 Body weight 78.[address] Alix Zavala Work Phone: [facility] Work Phone: 11-20-2021 14:01-0400 Diastolic blood pressure 78 mm[Hg] Dr. Alix Zaavla Work Phone: [facility] Work Phone: 11-20-2021 14:01-0400 Respiratory rate 18 /min Dr. Alix Zavala Work Phone: [facility] Work Phone: 11-20-2021 14:01-0400 Systolic blood pressure 143 mm[Hg] Dr. Alix Zavala Work Phone: [facility] Work Phone: 11-15-2021 13:36-0400 Body mass index (BMI) [Ratio] 29.7 kg/m2 Dr. Alix Zavala Work Phone: [facility] Work Phone: 11-15-2021 13:36-0400 Body weight 78.[address] Alix Zavala Work Phone: [facility] Work Phone: 11-15-2021 13:36-0400 Diastolic blood pressure 98 mm[Hg] Dr. Alix Zavala Work Phone: [facility] Work Phone: 11-15-2021 13:36-0400 Heart rate 82 /min Dr. Alix Zavala Work Phone: [facility] Work Phone: 11-15-2021 13:36-0400 Respiratory rate 16 /min Dr. Alix Zavala Work Phone: [facility] Work Phone: 11-15-2021 13:36-0400 SaO2% (BldA) [Mass fraction] 99 % Dr. Alix Zavala Work Phone: [facility] Work Phone: 11-15-2021 13:36-0400 Systolic blood pressure 140 mm[Hg] Dr. Alix Zavala Work Phone: [facility] Work Phone: 11-15-2021 13:36-0400 Body mass index (BMI) [Ratio] 29.7 kg/m2 Dr. Alix Zavala Work Phone: [facility] Work Phone: 11-15-2021 13:36-0400 Body weight 78.[address] Alix Zavala Work Phone: [facility] Work Phone: 11-15-2021 13:36-0400 Diastolic blood pressure 98 mm[Hg] Dr. Alix Zavala Work Phone: [facility] Work Phone: 11-15-2021 13:36-0400 Heart rate 82 /min Dr. Alix Zavala Work Phone: [facility] Work Phone: 11-15-2021 13:36-0400 Respiratory rate 16 /min Dr. Alix Zavala Work Phone: [facility] Work Phone: 11-15-2021 13:36-0400 SaO2% (BldA) [Mass fraction] 99 % Dr. Alix Zavala Work Phone: [facility] Work Phone: 11-15-2021 13:36-0400 Systolic blood pressure 140 mm[Hg] Dr. Alix Zavala Work Phone: [facility] Work Phone: 10-08-2021 14:03-0400 Diastolic blood pressure 78 mm[Hg] Dr. Alix Zavala Work Phone: [facility] Work Phone: 10-08-2021 14:03-0400 Heart rate 105 /min Dr. Alix Zavala Work Phone: [facility] Work Phone: 10-08-2021 14:03-0400 Respiratory rate 18 /min Dr. Alix Zavala Work Phone: [facility] Work Phone: 10-08-2021 14:03-0400 SaO2% (BldA) [Mass fraction] 95 % Dr. Alix Zavala Work Phone: [facility] Work Phone: 10-08-2021 14:03-0400 Systolic blood pressure 138 mm[Hg] Dr. Alix Zavala Work Phone: [facility] Work Phone: 08-02-2021 09:39-0500 Diastolic blood pressure 84 mm[Hg] Dr. Alix Zavala Work Phone: [facility] Work Phone: 08-02-2021 09:39-0500 Heart rate 86 /min Dr. Alix Zavala Work Phone: [facility] Work Phone: 08-02-2021 09:39-0500 Systolic blood pressure 132 mm[Hg] Dr. Alix Zavala Work Phone: [facility] Work Phone: Encounters Encounter Date Encounter Type Care Provider Facility Start: 03-09-2025 End: 03-09-2025 ambulatory Chalon Lloyd Facility:[facility] Start: 02-15-2025 End: 02-15-2025 ambulatory Chalon Lloyd Facility:[facility] Start: 2025 End: 2025 ambulatory Chalon Lloyd Facility:[facility] Start: 01-31-2025 End: 01-31-2025 ambulatory Chalon Lloyd Facility:[facility] Start: 01-13-2025 End: 01-13-2025 ambulatory Chalon Lloyd Facility:[facility] Start: 12-30-2024 End: 12-30-2024 ambulatory Chalon Lloyd Facility:[facility] Start: 12-23-2024 End: 12-23-2024 ambulatory Chalon Lloyd Facility:[facility] Start: 12-23-2024 End: 12-23-2024 ambulatory Chalon Lloyd Facility:[facility] Start: 12-20-2024 End: 12-20-2024 ambulatory Chalon Lloyd Facility:[facility] Start: 11-29-2024 End: 11-29-2024 ambulatory Dustintennille Levidour Facility:[facility] Start: 10-28-2024 End: 10-28-2024 [facility] Start: 10-22-2024 End: 10-22-2024 ambulatory Chalon Lloyd Facility:[facility] Start: 09-27-2024 End: 09-27-2024 ambulatory Chalon Lloyd Facility:[facility] Start: 09-23-2024 End: 09-23-2024 ambulatory Chalon Lloyd Facility:[facility] Start: 09-23-2024 End: 09-23-2024 ambulatory Chalon Lloyd Facility:[facility] Start: 08-26-2024 End: 08-26-2024 ambulatory Chalon Lloyd Facility:[facility] Start: 07-26-2024 End: 07-26-2024 ambulatory Chalon Lloyd Facility:[facility] Start: 07-23-2024 End: 07-23-2024 ambulatory Mike Friend Facility:[facility] Start: 07-23-2024 End: 07-23-2024 ambulatory Chalon Lloyd Facility:[facility] Start: 06-21-2024 End: 06-21-2024 ambulatory Dustintennille Manzo Facility:[facility] Start: 05-31-2024 End: 05-31-2024 ambulatory Chalon Lloyd Facility:[facility] Start: 05-20-2024 End: 05-20-2024 ambulatory Chalon Lloyd Facility:[facility] Start: 04-20-2024 End: 04-20-2024 ambulatory Dustintennille Levidour Facility:[facility] Start: 04-20-2024 End: 04-20-2024 ambulatory Chalon Lloyd Facility:[facility] Start: 03-18-2024 End: 03-18-2024 ambulatory Chalon Lloyd Facility:[facility] Start: 03-17-2024 End: 03-17-2024 ambulatory Dane Buck Facility:[facility] Start: 03-15-2024 End: 03-15-2024 ambulatory Mike Bello Facility:[facility] Start: 08-12-2022 Orders Only Jose Manuel Bell MD Work Phone: Gastroenterology Start: 06-10-2022 End: 06-10-[address] Alix Zavala Work Phone: [facility] Work Phone: Start: 06-10-2022 End: 06-10-[address] Alix Zavala Work Phone: [facility] Internal Medicine Start: 06-02-2022 Telephone encounter Etelvina Lee APRN.CNP Work Phone: [facility] Comment on above: Results Start: 05-31-2022 End: 05-31-2022 ambulatory ALIX ZAVALA Facility:[facility] Start: 05-31-2022 End: 05-31-2022 Patient encounter procedure Maryjane Lindsay PA-C Work Phone: [facility] Comment on above: Urinary frequency (P rimary Dx); Vaginal burning Start: 05-27-2022 End: 05-27-[address] Alix Zavala Work Phone: [facility] Neurology Start: 05-16-2022 Telephone encounter Jose Manuel arzola MD Work Phone: Gastroenterology Comment on above: Medication Problem Start: 05-03-2022 End: 05-03-[address] Alix Zavala Work Phone: [facility] Work Phone: Start: 05-03-2022 End: 05-03-[address] Alix Zavala Work Phone: [facility]-Medical Out Start: 04-25-2022 End: 04-25-[address] Alix Zavala Work Phone: [facility] Neurology Start: 04-23-2022 End: 04-23-[address] Alix Zavala Work Phone: [facility] Gastroenterology Start: 04-16-2022 End: 04-16-[address] Alix Zavala Work Phone: [facility] Work Phone: Start: 04-16-2022 End: 04-16-[address] Alix Zavala Work Phone: [facility]-Laboratory, Specimen Start: 04-12-2022 End: 04-12-2022 ambulatory ALIX ZAVALA Facility:[facility] Start: 04-12-2022 End: 04-12-[address] Gastroenterology Comment on above: Ulcerative pancoliti s with other complication (HCC) (Primary Dx); Abnormal weight loss Start: 04-12-2022 End: 04-12-2022 Telemedicine consultation with patient Kendall Demarco RD [facility] Start: 03-21-2022 Non-patient / Non-visit Dr. Matias Zavala Work Phone: [facility] Inpatient Physicians Start: 03-20-2022 Non-patient / Non-visit Dr. Matias Zavala Work Phone: [facility] Inpatient Physicians Start: 03-20-2022 Non-patient / Non-visit Dr. Matias Zavala Work Phone: [facility] Start: 03-19-2022 End: 03-21-2022 Non-patient / Non-visit Dr. Alix Zavala Work Phone: [facility] Inpatient Physicians Start: 03-19-2022 End: 03-21-2022 Evaluation and management of inpatient Dr. Alix Zavala Work Phone: [facility]-Medical Surgical 3 Start: 03-19-2022 End: 03-19-[address] Alix Zavala Work Phone: [facility] Gastroenterology Start: 03-14-2022 End: 03-14-2022 Telemedicine consultation with patient Jose Manuel Bell MD Work Phone: [facility] Start: 03-14-2022 End: 03-14-2022 ambulatory Jose Manuel Bell MD Work Phone: Gastroenterology Comment on above: Ulcerative pancoliti s with complication (HCC) (Primary Dx) Start: 03-14-2022 End: 03-14-[address] Alix Zavala Work Phone: [facility] Start: 03-13-2022 End: 03-13-2022 ambulatory ALIX ZAVALA Facility:[facility] Start: 03-13-2022 End: 03-13-[address] Gastroenterology Comment on above: Ulcerative pancoliti s with other complication (HCC) (Primary Dx) Major depressive dis order, recurrent episode, moderate (HCC) (Primary Dx); Psychological factor affecting physical condition; Ulcerative pancolitis with rectal bleeding (HCC) Start: 03-13-2022 End: 03-13-2022 Telemedicine consultation with patient Kendall Demarco RD [facility] Start: 03-08-2022 Orders Only Isela Meng APRN.RENEWABLE ENERGY TECHNICIAN Work Phone: Gastroenterology Comment on above: Ulcerative pancoliti s with rectal bleeding (HCC) (Primary Dx) Patient Question; Ca re Coordinator - Other Start: 03-04-2022 End: 03-04-2022 Emergency department patient visit Dr. Alix Zavala Work Phone: [facility]-Emergency Department Start: 03-01-2022 Orders Only Isela Meng APRN.RENEWABLE ENERGY TECHNICIAN Work Phone: Gastroenterology Comment on above: Inflammatory bowel d isease (Primary Dx) Start: 02-26-2022 End: 02-26-2022 ambulatory ALIX ZAVALA Facility:[facility] Start: 02-21-2022 Orders Only Isela Meng APRN.RENEWABLE ENERGY TECHNICIAN Work Phone: Gastroenterology Start: 02-20-2022 Telephone encounter Isela velasquez APRN.RENEWABLE ENERGY TECHNICIAN Work Phone: Gastroenterology Comment on above: Medication Preauthor ization Medication Problem; Patient Update Start: 02-19-2022 End: 02-19-2022 ambulatory Isela Meng APRN.RENEWABLE ENERGY TECHNICIAN Work Phone: Gastroenterology Comment on above: Ulcerative pancoliti s with rectal bleeding (HCC) (Primary Dx) Start: 02-19-2022 End: 02-19-2022 Telemedicine consultation with patient Isela Meng APRN.RENEWABLE ENERGY TECHNICIAN Work Phone: [facility] Start: 02-14-2022 End: 02-14-2022 ambulatory ALIX ZAVALA Facility:[facility] Start: 02-14-2022 End: 02-14-2022 ambulatory Treatment Rm 11 Miguelito Count Includes [facility] Work Phone: Hematology/Oncology Comment on above: Ulcerative pancoliti s with other complication (HCC) (Primary Dx) Start: 02-14-2022 End: 02-14-[address] Alix Zavala Work Phone: [facility] Neurology Start: 02-13-2022 End: 02-13-2022 [facility] Rodriguebarbara Mathis PSYD Work Phone: Gastroenterology Comment on above: Major depressive dis order, recurrent episode, moderate with anxious distress (HCC) (Primary Dx); Psychological factor affecting physical condition; Ulcerative colitis with complication, unspecified location (HCC) Start: 2022 End: [address] Alix Zavala Work Phone: [facility] Start: 01-25-2022 End: 01-25-2022 Distance [facility] Rodrigue Delfina BERNAL Work Phone: Gastroenterology Comment on above: Major depressive dis order, recurrent episode, moderate with anxious distress (HCC) (Primary Dx); Psychological factor affecting physical condition; Ulcerative colitis with complication, unspecified location (HCC) Start: 01-18-2022 End: 01-18-2022 Distance [facility] Rodriguebarbara Mathis PSYD Work Phone: Gastroenterology Comment on above: Major depressive dis order, recurrent episode, moderate with anxious distress (HCC) (Primary Dx); Psychological factor affecting physical condition; Ulcerative colitis with complication, unspecified location (HCC) Start: 01-16-2022 End: 01-16-2022 ambulatory ALIX ZAVALA Facility:[facility] Start: 01-15-2022 End: 01-15-[address] Alix Zavala Work Phone: [facility] Neurology Start: 01-09-2022 End: 01-09-[facility]22 [facility] Work Phone: Gastroenterology Comment on above: Major depressive dis order, recurrent episode, moderate with anxious distress (HCC) (Primary Dx); Psychological factor affecting physical condition; Ulcerative colitis with complication, unspecified location (HCC) Start: 01-08-2022 ambulatory Jose Owens [facility] Comment on above: Patient Update (Enty elliot) Start: 01-03-2022 ambulatory Jose Manuel Bell MD Work Phone: Gastroenterology Comment on above: vancocin Start: 01-01-2022 End: 01-01-2022 ambulatory Jose Manuel Bell MD Work Phone: Gastroenterology Comment on above: Crohn's disease of b oth small and large intestine with other complication (HCC) Start: 01-01-2022 End: 01-01-2022 Telemedicine consultation with patient Jose Manuel Bell MD Work Phone: [facility] Start: 12-27-2021 Telephone encounter Jose Manuel arzola MD Work Phone: Gastroenterology Comment on above: Results; Appointment Start: 12-20-2021 End: 12-20-2021 ambulatory ALIX ZAVALA Facility:[facility] Start: 12-20-2021 End: 12-20-2021 ambulatory Treatment Rm 5 Miguelito Count Includes [facility] Work Phone: Hematology/Oncology Comment on above: Ulcerative pancoliti s with other complication (HCC) (Primary Dx) Start: 12-19-2021 End: 12-19-2021 ambulatory ALIX ZAVALA Facility:[facility] Start: 12-18-2021 End: 12-18-[address] Alix Zavala Work Phone: [facility] Neurology Start: 12-12-2021 End: 12-12-[address] Alix Zavala Work Phone: [facility] Start: 12-11-2021 Telephone encounter Corinne Clifton MD Work Phone: General Surgery Comment on above: Appointment Start: 12-07-[address] Camilla Zavala Work Phone: [facility] Work Phone: Start: 12-07-2021 End: 12-07-2021 Encounter for general adult medical examination without abnormal findings Dr. Alix Zavala Work Phone: [facility] Internal Medicine Start: 12-07-2021 End: 12-07-[address] Alix Zavala Work Phone: 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) (Primary Dx); Defecation urgency; skilled nursing current use of systemic steroids Start: 12-06-2021 End: 12-06-2021 Telemedicine consultation with patient Isela Melara APRN.RENEWABLE ENERGY TECHNICIAN Work Phone: [facility] Start: 12-04-2021 Telephone encounter Isela randall ICE GRINDER.RENEWABLE ENERGY TECHNICIAN Work Phone: Gastroenterology Comment on above: Appointment Start: 11-30-2021 End: 11-30-[address] Gastroenterology Comment on above: Ulcerative pancoliti s with other complication (HCC) Start: 11-30-2021 End: 11-30-2021 Telemedicine consultation with patient Kendall Demarco RD [facility] Start: 11-29-2021 End: 11-29-2021 ambulatory ALIX ZAVALA Facility:[facility] Start: 11-22-2021 End: 11-22-2021 [facility] Rodrigue Mathis GABE Work Phone: Gastroenterology Comment on above: Major depressive dis order, recurrent episode, moderate with anxious distress (HCC) (Primary Dx); Psychological factor affecting physical condition; Ulcerative colitis with complication, unspecified location (HCC) Start: 11-22-2021 Non-patient / Non-visit Dr. Matias Zavala Work Phone: [facility] Start: 11-22-2021 End: 11-22-[address] Alix Zavala Work Phone: [facility]Breast Imaging - Biopsy/Stero Start: 11-20-2021 End: 11-20-[address] Alix Zavala Work Phone: [facility] Start: 11-16-2021 ambulatory Rodrigue Mathis Roge NATALIA Work Phone: Gastroenterology Comment on above: Update Start: 11-15-2021 End: 11-15-2021 ambulatory ALIX ZAVALA Facility:[facility] Start: 11-15-2021 End: 11-15-[address] Alix Zavala Work Phone: [facility] Neurology Start: 11-15-2021 End: 11-15-2021 ambulatory Jose Manuel Bell MD Work Phone: Gastroenterology Comment on above: Ulcerative rectosigm oiditis with complication (HCC) Start: 11-15-2021 End: 11-15-2021 Telemedicine consultation with patient Jose Manuel Bell MD Work Phone: [facility] Start: 11-14-2021 End: 11-14-[address] Alix Zavala Work Phone: [facility]Outpatient Breast Imaging Start: 11-08-2021 End: 11-08-2021 ambulatory ALIX ZAVALA Facility:[facility] Start: 11-07-2021 End: 11-07-2021 ambulatory ALIX ELIAS ZAVALA Facility:[facility] Start: 11-05-2021 ambulatory Jose Manuel Bell MD Work Phone: Gastroenterology Comment on above: Have questions on wh en we an do blood work Start: 11-02-2021 End: 11-02-2021 ambulatory ALIXNESHA ZAVALA Facility:[facility] Start: 10-25-2021 End: 10-25-2021 ambulatory ALIX ELIASMAGALIE ZAVALA Facility:[facility] Start: 10-08-2021 End: 10-08-[address] Alix Zavala Work Phone: [facility] Neurology Start: 10-05-2021 End: 10-05-[address] Alix Zavala Work Phone: [facility], Specimen Start: 09-28-2021 End: 09-28-2021 ambulatory ALIX ELIASMAGALIE ZAVALA Facility:[facility] Start: 09-20-2021 End: 09-20-2021 ambulatory ALIX ELIASMAGALIE ZAVALA Facility:[facility] Start: 09-14-2021 End: 09-15-2021 ambulatory ALIX ELIASMAGALIE ZAVALA Facility:[facility] Start: 09-03-2021 End: 09-03-2021 ambulatory ALIX ELIASMAGALIE ZAVALA Facility:[facility] Start: 09-03-2021 End: 09-03-[address] Alix Zavala Work Phone: [facility] Neu[facility] Start: 08-30-2021 End: 08-30-2021 ambulatory ALIX ZAVALA Facility:[facility] Start: 08-20-2021 End: 08-20-[address] Alix Zavala Work Phone: [facility], Specimen Start: 08-02-2021 End: 08-02-[address] Alix Zavala Work Phone: [facility] Neurology Start: 07-31-2021 End: 07-31-2021 ambulatory RODRGIUE DELFINA Facility:[facility] Start: 07-26-2021 End: 07-26-2021 ambulatory RODRIGUE DELFINA Facility:[facility] Start: 06-29-2021 End: 06-29-2021 ambulatory RODRIGUEBARBARA MATHIS [facility] Start: 06-28-2021 End: 06-28-2021 ambulatory JOSE MANUEL BELL [facility] Start: 06-11-2021 End: 06-11-2021 ambulatory RODRIGUE MATHIS [facility] Start: 01-29-2021 End: 01-29-2021 Subsequent hospital visit by physician Alix Zavala Work Phone: [address] MRI Procedures Date Procedure Procedure Detail Performing Clinician Start: 05-31-2022 Urnls dip stick/tabl et rgnt auto w/o microscopy Angela Roy APRN.RENEWABLE ENERGY TECHNICIAN Work Phone: Start: 03-20-[address] Alix elizondo Work Phone: Start: 03-04-2022 Computed tomography of abdomen and pelvis with intravenous contrast Dr. Alix Zavala Work Phone: Start: 11-22-[address] Matias Zavala Work Phone: Start: 11-14-2021 Screening mammography Sp Zavala Work Phone: Start: 10-05-2021 Investigation of transfusion reaction Dr. Alix Zavala Work Phone: Start: 10-05-[address] Alix Zavala Work Phone: Start: 02-17-2020 Colonoscopy Jose Manuel may MD Work Phone: Clostridium difficil e detection Dr. Alix Zavala Work Phone: Enteric Bacteriology Dr. Katlyn Zavala Work Phone: Giardia Antigen (TYLOR) Dr. Matias Zavala Work Phone: Lactoferrin measurement Dr. Alix Zavala Work Phone: Ova OR parasites identification Dr. Alix Zavala Work Phone: Plan of Treatment Date Care Activity Detail Author Start: 02-26-2025 DIABETES SCREEN DIABETES SCREEN [facility] Start: 11-07-2024 DIABETES SCREEN DIABETES SCREEN [facility] Start: 10-18-2023 DIABETES SCREEN DIABETES SCREEN [facility] Start: 06-10-2022 Patient referral [facility] Work Phone: Start: 05-31-2022 End: 07-31-2022 BACTERIAL VAGINOSIS AMPLIFICATION BACTERIAL VAGINOSIS AMPLIFICATION Lab Routine Vaginal burning Expected: 05/31/2022, Expires: 07/31/2022 [facility] Work Phone: Comment on above: Expected: 05/31/2022, Expires: Start: 05-03-2022 Iv infusion therapy/prophylaxis /dx 1st to 1 hr THER/PROPH/DIAG IV INF INIT [facility] Work Phone: Start: 05-03-2022 Therapeutic injection iv push each new drug TX/PRO/DX INJ NEW DRUG ADDON [facility] Work Phone: Start: 03-21-2022 Influenza vaccination [facility] Start: 03-21-2022 Patient discharge [facility] Work Phone: Start: 03-20-2022 Colonoscopy Colonoscopy,EGD (MAC) (Not Applicable) [facility] Work Phone: Start: 03-20-2022 [facility] Work Phone: Start: 03-20-2022 Procedure [facility] Work Phone: Start: 03-19-2022 End: 03-20-2022 [facility] Work Phone: Start: 03-19-2022 Referral to gastroenterology service [facility] Work Phone: Start: 03-19-2022 Catheterization of vein [facility] Work Phone: Start: 03-19-2022 Notification of physician [facility] Work Phone: Start: 03-19-2022 Oxygen therapy [facility] Work Phone: Start: 03-19-2022 Application of intermittent pneumatic compression device [facility] Work Phone: Start: 03-19-2022 Following clinical pathway protocol [facility] Work Phone: Start: 03-19-2022 Ambulation without limitation [facility] Work Phone: Start: 03-19-2022 Assessment of risk of venous thromboembolism [facility] Work Phone: Start: 03-19-2022 Insertion of catheter into peripheral vein [facility] Work Phone: Start: 03-19-2022 Providing care according to standard [facility] Work Phone: Start: 03-19-2022 Clostridioides difficile DNA [Presence] in Unspecified specimen by EULALIA with probe detection [facility] Work Phone: Start: 03-19-2022 Enteric precautions [facility] Work Phone: Start: 03-19-2022 Gastrointestinal pathogens panel - Stool by EULALIA with probe detection [facility] Work Phone: Start: 03-19-2022 Lactoferrin [Presence] in Stool by Immunoassay [facility] Work Phone: Start: 03-19-2022 Protein measurement [facility] Work Phone: Start: 03-19-2022 Verification routine [facility] Work Phone: Start: 03-19-2022 Admission procedure [facility] Work Phone: Start: 03-19-2022 Patient referral to dietitian [facility] Work Phone: Start: 03-19-2022 Protein measurement [facility] Work Phone: Start: 02-20-2022 End: 04-22-2022 C reactive protein [Mass/volume] in Serum or Plasma C-REACTIVE PROTEIN (CRP) Lab Routine Ulcerative pancolitis with rectal bleeding (HCC) Expected: 02/20/2022, Expires: 04/22/2022 [facility] Work Phone: Comment on above: Expected: 02/20/2022, Expires: 2 Start: 02-20-2022 End: 04-22-2022 CBC W Auto Differential panel - Blood CBC + DIFF Lab Routine Ulcerative pancolitis with rectal bleeding (HCC) Expected: 02/20/2022, Expires: 04/22/2022 [facility] Work Phone: Comment on above: Expected: 02/20/2022, Expires: 2 Start: 02-20-2022 End: 04-22-2022 Comprehensive metabolic 2000 panel - Serum or Plasma COMP METABOLIC PANEL Lab Routine Ulcerative pancolitis with rectal bleeding (HCC) Expected: 02/20/2022, Expires: 04/22/2022 [facility] Work Phone: Comment on above: Expected: 02/20/2022, Expires: 2 Start: 02-16-2022 Colonoscopy COLONOSCOPY [facility] Start: 02-16-2022 COLORECTAL CANCER SCREENING COLORECTAL CANCER SCREENING [facility] Start: 12-07-2021 Patient referral [facility] Work Phone: Start: 12-06-2021 End: 02-05-2022 ANSER VDZ (PROMETHEUS) ANSER VDZ (PROMETHEUS) Lab Routine Ulcerative 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 with other complication (HCC) Expected: 12/06/2021, Expires: 02/05/2022 [facility] Work Phone: Comment on above: Expected: 12/06/2021, Expires: 2 Start: 12-06-2021 End: 02-05-2022 FERRITIN BLD FERRITIN BLD Lab Routine Ulcerative 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 with other complication (HCC) Expected: 12/06/2021, Expires: 02/05/2022 [facility] Work Phone: Comment on above: Expected: 12/06/2021, Expires: 2 Start: 12-06-2021 End: 02-05-2022 IRON + TIBC IRON + TIBC Lab Routine Ulcerative 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 with other complication (HCC) Expected: 12/06/2021, Expires: 02/05/2022 [facility] Work Phone: Comment on above: Expected: 12/06/2021, Expires: 2 Start: 12-06-2021 End: 02-05-2022 VITAMIN B12 BLOOD VITAMIN B12 BLOOD Lab Routine Ulcerative 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 with other complication (HCC) Expected: 12/06/2021, Expires: 02/05/2022 [facility] Work Phone: Comment on above: Expected: 12/06/2021, Expires: 2 Start: 12-06-2021 End: 02-05-2022 VITAMIN D 25 HYDROXY VITAMIN D 25 HYDROXY Lab Routine Ulcerative 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 with other complication (HCC) Expected: 12/06/2021, Expires: 02/05/2022 [facility] Work Phone: Comment on above: Expected: 12/06/2021, Expires: 2 Start: 11-14-2021 COVID-19 VACCINE (4 - Booster for Moderna series) COVID-19 VACCINE (4 - Booster for Moderna series) [facility] Start: 11-07-2021 End: 01-07-2022 BLOOD TB SCREEN [facility] Work Phone: Comment on above: Expected: 11/07/2021, Expires: 2 Start: 11-07-2021 End: 01-07-2022 C reactive protein [Mass/volume] in Serum or Plasma [facility] Work Phone: Comment on above: Expected: 11/07/2021, Expires: 2 Start: 11-07-2021 End: 01-07-2022 Chronic hepatitis differentiation between hepatitis B and C virus panel - Serum or Plasma [facility] Work Phone: Comment on above: Expected: 11/07/2021, Expires: 2 Start: 11-07-2021 End: 01-07-2022 Comprehensive metabolic 2000 panel - Serum or Plasma [facility] Work Phone: Comment on above: Expected: 11/07/2021, Expires: 2 Start: 10-14-2021 COVID-19 VACCINE (4 - Booster) COVID-19 VACCINE (4 - Booster) [facility] Start: 10-08-2021 COVID-19 VACCINE (4 - Booster) COVID-19 VACCINE (4 - Booster) [facility] Start: 09-10-2021 COVID-19 VACCINE (4 - Booster) COVID-19 VACCINE (4 - Booster) [facility] Start: 03-21-2021 Influenza vaccination Flu vaccine (#1) [facility] Work Phone: Start: 2021 HEPATITIS B (1 of 3 - Risk 3-dose series) HEPATITIS B (1 of 3 - Risk 3-dose series) [facility] Start: 2011 Screening for malignant neoplasm of breast Breast cancer screen [facility] Work Phone: Start: 2011 Shingles Vaccine (1 of 2) Shingles Vaccine (1 of 2) [facility] Work Phone: Start: 2011 SHINGRIX VACCINE (1 of 2) SHINGRIX VACCINE (1 of 2) [facility] Start: 2006 COLOGUARD (FIT-DNA) COLOGUARD (FIT-DNA) [facility] Start: [address] COLONOGRAPHY [facility] Start: 2006 FECAL OCCULT BLOOD FECAL OCCULT BLOOD [facility] Start: 2006 LIPID SCREEN LIPID SCREEN [facility] Start: 2006 Screening for malignant neoplasm of colon Colon cancer screen colonoscopy [facility] Work Phone: Start: 2006 SIGMOIDOSCOPY SIGMOIDOSCOPY [facility] Start: 2001 Lipid panel Lipid screen [facility] Work Phone: Start: 2001 Mammography MAMMOGRAM [facility] Start: 1991 HPV TESTING HPV TESTING [facility] Start: 1982 PAP TESTING PAP TESTING [facility] Start: 1982 Screening for malignant neoplasm of cervix Cervical cancer screen [facility] Work Phone: Start: 02-08-1980 DTaP/Tdap/Td vaccine (1 - Tdap) DTaP/Tdap/Td vaccine (1 - Tdap) [facility] Work Phone: Start: 02-08-1980 HEPATITIS B (1 of 3 - Risk 3-dose series) HEPATITIS B (1 of 3 - Risk 3-dose series) [facility] Start: 02-08-1980 SHINGRIX VACCINE (1 of 2) SHINGRIX VACCINE (1 of 2) [facility] Start: 02-08-1980 Urine microalbumin profile DTAP,TDAP,TD (1 - Tdap) [facility] Start: 1979 HIV SCREENING HIV SCREENING [facility] Start: 1979 MMR (1 of 2 - Risk 2-dose series) MMR (1 of 2 - Risk 2-dose series) [facility] Start: 02-08-1976 HIV screening HIV screen [facility] Work Phone: Start: 1973 COVID-19 Vaccine (1) COVID-19 Vaccine (1) [facility] Work Phone: Start: 1971 MENINGOCOCCAL B: Consider based on risk (1 of 4 - Increased Risk Bexsero 2-dose series) MENINGOCOCCAL B: Consider based on risk (1 of 4 - Increased Risk Bexsero 2-dose series) [facility] Start: 1967 PNEUMOCOCCAL (1 - PCV) PNEUMOCOCCAL (1 - PCV) [facility] Start: 1962 HEPATITIS A (1 of 2 - Risk 2-dose series) HEPATITIS A (1 of 2 - Risk 2-dose series) [facility] Start: 1961 Hepatitis C screening [facility] Work Phone: End: 12-06-2022 [place]ULT [place] [employer] [place]ULT [place] [employer] Endoscopy Routine Ulcerative 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 with other complication (HCC) Defecation urgency 1 Occurrences starting 12/06/2021 until 12/06/2022 [facility] Work Phone: Comment on above: 1 Occurrences starting 12/06/2021 until 12/06/2022 Bacteria identified in Urine by Culture URINE CULTURE Microbiology Routine Urinary frequency Ordered: 05/31/2022 [facility] Work Phone: Comment on above: Ordered: 05/31/2022 Biopsy of breast [facility] Work Phone: Calprotectin [Mass/m ass] in Stool CALPROTECTIN,FECAL Lab Routine Ulcerative 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 with other complication (HCC) Ordered: 12/06/2021 [facility] Work Phone: Comment on above: Ordered: 12/06/2021 JENNIFER / TRICHOMONA S AMPLIFICATION JENNIFER / TRICHOMONAS AMPLIFICATION Microbiology Routine Vaginal burning Ordered: 05/31/2022 [facility] Work Phone: Comment on above: Ordered: 05/31/2022 Clostridioides diffi cile toxin genes [Presence] in Stool by EULALIA with probe detection C. DIFFICILE PCR Lab Routine Ulcerative 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 with other complication (HCC) Ordered: 12/06/2021 [facility] Work Phone: Comment on above: Ordered: 12/06/[address] [facility] Work Phone: End: 12-06-2022 COLONOSCOPY DIAGNOSTIC COLONOSCOPY DIAGNOSTIC Endoscopy Routine Ulcerative 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 with other complication (HCC) 1 Occurrences starting 12/06/2021 until 12/06/2022 [facility] Work Phone: Comment on above: 1 Occurrences starting 12/06/2021 until 12/06/2022 End: 03-31-2023 Ct abdomen & pelvis w/contrast material CT ENTEROGRAPHY W IVCON Radiology Routine Inflammatory bowel disease 1 Occurrences starting 03/01/2022 until 03/31/2023 [facility] Work Phone: Comment on above: 1 Occurrences starting 03/01/2022 until 03/31/2023 End: 01-05-2023 Dxa bone density study 1/> sites axial skel DXA-AXIAL SKELETON Radiology Routine Ulcerative 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 with other complication (HCC) 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 1 Occurrences starting 12/06/2021 until 01/05/2023 [facility] Work Phone: Comment on above: 1 Occurrences starting 12/06/2021 until 01/05/2023 Enteric Bacteriology Enteric Bacteriology [facility] Work Phone: Erythrocyte sediment ation rate [facility] Work Phone: Giardia lamblia Ag [Presence] in Stool by Immunoassay [facility] Work Phone: Lactic acid measurement [facility] Work Phone: Microscopic urinalysis [facility] Work Phone: Organism count, microscopic method [facility] Work Phone: Ova and parasites identified in Unspecified specimen by Light microscopy [facility] Work Phone: Patient Education ED Ulcerative Colitis ED Weakness (Uncertain Cause) [facility] Work Phone: Patient referral [facility] Work Phone: Procedure [facility] Work Phone: Protein measurement [facility] Work Phone: Urinalysis, blood, qualitative [facility] Work Phone: Urine microscopy: epithelial cells [facility] Work Phone: White blood cell count [facility] Work Phone: [facility] Immunizations Immunization Date Immunization Notes Care Provider Natalia mares 07-16-2021 Covid (Pfizer) Dr. Alix Pappas h Work Phone: [facility] Work Phone: 11-30-2020 Covid (Moderna) Dr. Alix dorman Work Phone: [facility] Work Phone: 11-02-2020 [place]. Alix El Work Phone: [facility] Work Phone: Payers Date Payer Category Payer Self-pay [id number] 2023 Medicare [id number] 2021 Medicaid MEDICAID [facility] MEDICAID [id number] 2021-Present [phone] [address] [place] [address] Medicaid [id number] 2021 Medicaid MEDICAID [facility] MEDICAID [id number] 2021-Present [phone] [address] [place] [address] Medicaid [id number] 2021 Medicaid [id number] 2021 Medicare MEDICARE MEDICAR E A AND B [id number] 2021-Present [phone] [place] [address] Medicare [id number] 2021 Medicare [id number] 2021 Medicare MEDICARE MEDICAR E A AND B [id number] 2021-Present [phone] [place] [address] Medicare [id number] 2019 Unknown [id number] 2016 Unknown [id number] Unknown [id number] Unknown [id number] 2.16.840.1.595087.3.579.2.462 Unknown [id number] 2.16.840.1.100805.3.579.2.462 Unknown [id number] 2.16.840.1.937376.3.579.2.462 Unknown [id number] 2.16.840.1.830782.3.579.2.462 Unknown [id number] 2.16.840.1.404747.3.579.2.462 Unknown [id number] 2.16.840.1.374775.3.579.2.462 Unknown [id number] 2.16.840.1.469704.3.579.2.462 Unknown [id number] 2.16.840.1.108777.3.579.2.462 Unknown [id number] 2.16.840.1.370061.3.579.2.462 Unknown [id number] 2.16.840.1.273866.3.579.2.462 Unknown [id number] 2.16.840.1.567327.3.579.2.462 Unknown [id number] 2.16.840.1.170201.3.579.2.462 Unknown [id number] 2.16.840.1.867014.3.579.2.462 Unknown [id number] 2.16.840.1.787310.3.579.2.462 Unknown [id number] 2.16.840.1.998410.3.579.2.462 Unknown [id number] 2.16.840.1.659196.3.579.2.462 Unknown [id number] 2.16.840.1.769029.3.579.2.462 Unknown [id number] 2.16.840.1.351689.3.579.2.462 Unknown [id number] 2.16.840.1.799965.3.579.2.462 Unknown [id number] 2.16.840.1.468865.3.579.2.462 Unknown [id number] 2.16.840.1.139786.3.579.2.462 Unknown [id number] 2.16.840.1.804827.3.579.2.462 Unknown [id number] 2.16.840.1.157255.3.579.2.462 Unknown [id number] 2.16.840.1.953735.3.579.2.462 Unknown [id number] 2.16.840.1.676940.3.579.2.462 Unknown [id number] 2.16.840.1.097776.3.579.2.462 Unknown [id number] 2.16.840.1.983716.3.579.2.462 Social History Date Type Detail Facility Tobacco smoking stat us WIIS Unknown if ever smoked [facility] Work Phone: Start: 1960 Sex Assigned At Not on file S [facility] Work Phone: Start: 05-31-2022 Tobacco smoking stat us WIIS Never smoked tobacco [facility] Start: 03-15-2020 End: 05-31-2022 Alcohol intake Current non-drinker of alcohol (finding) [facility] Start: 10-28-2021 End: 05-31-2022 Exposure to SARS-CoV-2 (event) Not sure [facility] Start: 11-20-2021 End: 06-10-2022 Tobacco smoking status NHIS Unknown if ever smoked [facility] Work Phone: Start: 12-01-2018 None [facility] Work Phone: Start: 12-01-2018 Alone [facility] Work Phone: Start: 1960 Sex Assigned At Female W [facility] Work Phone: Start: 02-26-2022 End: 03-08-2022 Exposure to SARS-CoV-2 (event) Unable to assess [facility] Start: 05-31-2022 Tobacco use and exposure Smokeless tobacco non-user [facility] Goals Date Patient Goal Desired Activity /State Functional Status Date Assessment Result Facility 03-21-2022 Functional status [place];Bathroom Privilege [facility] Work Phone: 03-19-2022 Functional status Bathroom Privilege [facility] Work Phone: Mental Status Date Assessment Result Facility 05-03-2022 Cognitive function Level Of Cons ciousness Awake;Alert;Appropriate;Follow s Commands [facility] Work Phone: 03-20-2022 Cognitive function Voice/Name [facility] Work Phone: 03-19-2022 Cognitive function Voice/Name [facility] Work Phone: 03-04-2022 Cognitive function Level Of Cons ciousness Awake;Alert;Appropriate;Follow s Commands;Responds to vocal stimuli [facility] Work Phone: Clinical Notes 06-08-2021 to 06-02-2022 Telephone Encounter - Alok Garcia LPN - 06/02/2022 3:52 PM ESTTelephone Encounter - Alok Garcia LPN - 06/02/2022 3:50 PM Ayush Lindsay PA-C - 05/31/2022 6:39 PM ESTPatient Instructions Note Date & Type Note Facility 06-02-2022 Miscellaneous Notes Phone call placed patient advised (see prior provider encounter) Patient verbalized understanding, agreed with plan of care. Alok Garcia LPN ----- Message from Etelvina Lee APRN.RENEWABLE ENERGY TECHNICIAN sent at 06/02/2022 12:25 PM EST ----- Urine culture did not show clear evidence of infection. however it appears sample may have been contaminated with skin bacteria during collection. If not improving, recommend follow up with PCP. Etelvina Lee CNP documented in this encounter [facility] 05-31-2022 Note HNO ID: [id number] Author: Maryjane Lindsay PA-C Service: ? Author Type: Physician Motor Grader Rough Grade Type: Progress Notes Filed: 05/31/2022 6:43 PM Note Text: This note was created using Audicuster. Subjective Chanel Prasad is a 62 year old female. HPI Patient presents with urinary frequency and dysuria. She feels very irritated in the perineal area. She has to wear a pad and thinks maybe that is irritating her skin. She did have C. difficile recently and was treated in the hospital. She has a history of ulcerative colitis and also was treated for yeast recently with Diflucan on May 10. She denies any vaginal itching or discharge. Not sexually active. No back pain. No vomiting. Review of Systems Constitutional: Negative. HENT: Negative. Respiratory: Negative. Cardiovascular: Negative. Gastrointestinal: Negative. Genitourinary: Positive for frequency and vaginal pain. Negative for urgency. Musculoskeletal: Negative. Skin: Negative. All other systems reviewed and are negative. PAST MEDICAL HISTORY Diagnosis Date Colitis Depression Diarrhea Diverticulosis GERD (gastroesophageal reflux disease) Ruslan's thyroiditis Hemorrhoids History of colon polyps History of lower GI bleeding Hypothyroidism Multiple sclerosis (HCC) Personal history of colonic polyps monitored by colonoscopy q 5 years Sciatic pain Tension headache Vitamin D deficiency Current Outpatient Medications Medication Sig Dispense Refill ustekinumab (STELARA) 90 mg/mL injection Inject 1 mL subcutaneously every 8 weeks. 1 mL 11 vedolizumab (ENTYVIO) 300 mg injection 300mg Intravenous every six weeks. 1 Each 5 valACYclovir (VALTREX) 1 gram Take 1,000 mg by mouth once daily. 7 days vedolizumab (ENTYVIO) 300 mg injection 300mg Intravenous every 8 weeks. 300 mL 5 calcium carbonate (TUMS ORAL) Take 1,000 mg by mouth once daily. acetaminophen (TYLENOL) 325 mg tablet Take 2 tablets by mouth every 4 hours as needed (for pain.). 2 tablet 5 Fluticasone Furoate 27.5 mcg/actuation nasal spray Use 2 Sprays in each nostril once daily. 15.8 mL 5 levothyroxine (SYNTHROID) 50 mcg tablet Take 50 mcg by mouth once daily. nystatin-triamcinolone (MYCOLOG) ointment Apply sparingly to perineum twice daily for irritation/infection. 30 g 0 dicyclomine (BENTYL) 20 mg tablet take 1 tablet by mouth before meals and at bedtime 120 tablet 2 ustekinumab (STELARA) 130 mg/26 mL injection Inject 78 mL intravenously one time only for 1 dose. 78 mL 0 predniSONE (DELTASONE) 10 mg tablet Take 2 tablets by mouth once daily. (Patient not taking: Reported on 05/31/2022) 100 tablet 1 polyethylene glycol 3350 (MIRALAX, GLYCOLAX) 17 gram/dose powder Use as directed for Miralax / Gatorade Bowel Prep Kit (Patient not taking: Reported on 05/31/2022) 238 g 0 Gatorade Sports Drink Use as directed for Miralax / Gatorade Bowel Prep Kit (Patient not taking: Reported on 05/31/2022) Bisacodyl (DULCOLAX) 5 mg tab Use as directed for Miralax / Gatorade Bowel Prep Kit (Patient not taking: Reported on 05/31/2022) 4 tablet 0 traMADol (ULTRAM) 50 mg tablet Take 50 mg by mouth every 6 hours as needed for pain. naproxen sodium (ALEVE) 220 mg tablet Take 220 mg by mouth as needed. uses 3-4 times /month for low back/extremity pain No current facility-administered medications for this visit. PAST SURGICAL HISTORY Procedure Laterality Date APPENDECTOMY COLONOSCOPY 03/12/[address], [address] Bridger Jaffe COLONOSCOPY 11/28/2010 Diverticulosis, hemorrhoids. Dr. Kirill Conte. COLONOSCOPY 11/2018 Chronic active colitis- [facility] COLONOSCOPY 02/17/2020 chronic active ulcerative colitis EGD 12/03/2018 esopohagitis, active chronic gastritis, mild chronic duodenitis HEMORRHOID SURGERY HX 10/2018 OOPHORECTOMY PARTIAL/TOTAL UNI/BI 1986 right ovary TOTAL ABDOMINAL HYSTERECT W/WO RMVL TUBE OVARY 2000 FAMILY HISTORY Problem Relation Age of Onset other (No family history of MS) Other Diabetes Mother Heart Mother Stroke Mother Diabetes Brother half brother Heart Brother half brother Social History Tobacco Use Smoking status: Never Smokeless tobacco: Never Vaping Use Vaping Use: Never used Substance Use Topics Alcohol use: No Drug use: Not Currently Comment: smoked marijuana when she was younger Objective BP 146/78 Pulse 118 Temp 36.8 ?C (98.2 ?F) Resp 18 Wt 75.4 kg (166 lb 3.2 oz) SpO2 98% BMI 28.37 kg/m? Physical Exam Vitals reviewed. Constitutional: Appearance: Normal appearance. HENT: Head: Normocephalic and atraumatic. Genitourinary: Comments: Patient has irritation along the labia and perineal areas. No specific vaginal discharge present. No vesicles. Skin: General: Skin is warm and dry. Neurological: Mental Status: She is alert. Assessment and Plan ASSESSMENT/PLAN: 1. Urinary frequency - ICD9: 788.41, ICD10: R (more content not included)... [facility] 05-31-2022 History of Present illness Narrative This note was created using MySongToYouriter. Subjective Chanel Prasad is a 62 year old female. HPI Patient presents with urinary frequency and dysuria. She feels very irritated in the perineal area. She has to wear a pad and thinks maybe that is irritating her skin. She did have C. difficile recently and was treated in the hospital. She has a history of ulcerative colitis and also was treated for yeast recently with Diflucan on May 10. She denies any vaginal itching or discharge. Not sexually active. No back pain. No vomiting. Review of Systems Constitutional: Negative. HENT: Negative. Respiratory: Negative. Cardiovascular: Negative. Gastrointestinal: Negative. Genitourinary: Positive for frequency and vaginal pain. Negative for urgency. Musculoskeletal: Negative. Skin: Negative. All other systems reviewed and are negative. PAST MEDICAL HISTORY Diagnosis Date Colitis Depression Diarrhea Diverticulosis GERD (gastroesophageal reflux disease) Ruslan's thyroiditis Hemorrhoids History of colon polyps History of lower GI bleeding Hypothyroidism Multiple sclerosis (HCC) Personal history of colonic polyps monitored by colonoscopy q 5 years Sciatic pain Tension headache Vitamin D deficiency Current Outpatient Medications Medication Sig Dispense Refill ustekinumab (STELARA) 90 mg/mL injection Inject 1 mL subcutaneously every 8 weeks. 1 mL 11 vedolizumab (ENTYVIO) 300 mg injection 300mg Intravenous every six weeks. 1 Each 5 valACYclovir (VALTREX) 1 gram Take 1,000 mg by mouth once daily. 7 days vedolizumab (ENTYVIO) 300 mg injection 300mg Intravenous every 8 weeks. 300 mL 5 calcium carbonate (TUMS ORAL) Take 1,000 mg by mouth once daily. acetaminophen (TYLENOL) 325 mg tablet Take 2 tablets by mouth every 4 hours as needed (for pain.). 2 tablet 5 Fluticasone Furoate 27.5 mcg/actuation nasal spray Use 2 Sprays in each nostril once daily. 15.8 mL 5 levothyroxine (SYNTHROID) 50 mcg tablet Take 50 mcg by mouth once daily. nystatin-triamcinolone (MYCOLOG) ointment Apply sparingly to perineum twice daily for irritation/infection. 30 g 0 dicyclomine (BENTYL) 20 mg tablet take 1 tablet by mouth before meals and at bedtime 120 tablet 2 ustekinumab (STELARA) 130 mg/26 mL injection Inject 78 mL intravenously one time only for 1 dose. 78 mL 0 predniSONE (DELTASONE) 10 mg tablet Take 2 tablets by mouth once daily. (Patient not taking: Reported on 05/31/2022) 100 tablet 1 polyethylene glycol 3350 (MIRALAX, GLYCOLAX) 17 gram/dose powder Use as directed for Miralax / Gatorade Bowel Prep Kit (Patient not taking: Reported on 05/31/2022) 238 g 0 Gatorade Sports Drink Use as directed for Miralax / Gatorade Bowel Prep Kit (Patient not taking: Reported on 05/31/2022) Bisacodyl (DULCOLAX) 5 mg tab Use as directed for Miralax / Gatorade Bowel Prep Kit (Patient not taking: Reported on 05/31/2022) 4 tablet 0 traMADol (ULTRAM) 50 mg tablet Take 50 mg by mouth every 6 hours as needed for pain. naproxen sodium (ALEVE) 220 mg tablet Take 220 mg by mouth as needed. uses 3-4 times /month for low back/extremity pain No current facility-administered medications for this visit. PAST SURGICAL HISTORY Procedure Laterality Date APPENDECTOMY COLONOSCOPY 03/12/[address], [address] Bridger Jaffe COLONOSCOPY 11/28/2010 Diverticulosis, hemorrhoids. Dr. Kirill Conte. COLONOSCOPY 11/2018 Chronic active colitis- [facility] COLONOSCOPY 02/17/2020 chronic active ulcerative colitis EGD 12/03/2018 esopohagitis, active chronic gastritis, mild chronic duodenitis HEMORRHOID SURGERY HX 10/2018 OOPHORECTOMY PARTIAL/TOTAL UNI/BI 1986 right ovary TOTAL ABDOMINAL HYSTERECT W/WO RMVL TUBE OVARY 1999 FAMILY HISTORY Problem Relation Age of Onset other (No family history of MS) Other Diabetes Mother Heart Mother Stroke Mother Diabetes Brother half brother Heart Brother half brother Social History Tobacco Use Smoking status: Never Smokeless tobacco: Never Vaping Use Vaping Use: Never used Substance Use Topics Alcohol use: No Drug use: Not Currently Comment: smoked marijuana when she was younger Objective BP 146/78 Pulse 118 Temp 36.8 C (98.2 F) Resp 18 Wt 75.4 kg (166 lb 3.2 oz) SpO2 98% BMI 28.37 kg/m Physical Exam Vitals reviewed. Constitutional: Appearance: Normal appearance. HENT: Head: Normocephalic and atraumatic. Genitourinary: Comments: Patient has irritation along the labia and perineal areas. No specific vaginal discharge present. No vesicles. Skin: General: Skin is warm and dry. Neurological: Mental Status: She is alert. Assessment and Plan ASSESSMENT/PLAN: 1. Urinary frequency - ICD9: 788.41, ICD10: R35.0 (primary diagnosis) Urine dip was negative here for UTI. Likely from the perineal irritation that she is having burning. I will give her Mycolog ointment over the next week. Recommended follow-up with TEST PREPARATION TUTOR if not improving. Yeast and BV swabs obtained. Will call and follow-up on results. - UA DIP, URINE (POC) - URINE CULTURE 2. Vaginal burning - ICD9: 625.8, ICD10: N94.9 - BACTERIAL VAGINOSIS AMPLIFICATION - JENNIFER / TRICHOMONAS AMPLIFICATION Maryjane R Athy, PA-C documented in this encounter [facility] 05-16-2022 Miscellaneous Notes Patient called this am and advised this nurse she has been very sick and hospitalized in [place] where she lives. She has now established care with Dr. Bello in [place]. Pt also called to ask if this nurse would call, on her behalf, to [facility] can cancel the delivery of her Stelara as she is now getting the Stelara through her new doctor.Called [facility] and spoke to Jono - pharmacist and explained the above. Jono stated her will void the information on his end so pt does not receive delivery of Stelara. Called pt back and explained above. Advised pt is she receives any shipment of Stelara or phone call to call this nurse for additional assistance.Pt verbalized understanding. Tiffany Carreon RN May 16, 2022 3:39 PM documented in this encounter [facility] 04-12-2022 Note HNO ID: [id number] Author: Kendall Demarco RD Service: ? Author Type: Registered Dietitian Type: Progress Notes Filed: 04/15/2022 12:01 PM Note Text: GI Nutrition TeleHealth Consult -Re Assessment This visit was performed via telehealth due to the COVID-19 epidemic as an effort to protect patients and minimize exposure. Consent from patient received to conduct visit using telehealth. This Team Access Model visit is a virtual encounter. It required patient-provider interaction for the medical decision making as documented below. Some elements copied from my note on 03/13/22 have been updated and all reflect current decision making from today, April 12, 2022 Nutrition Diagnosis: Malnutrition, related to, Cdiff and Ulcerative Colitis, as evidenced by decreased PO intake <75% over the last 3 months, 9% weight loss over the last 3 months significant, inflammation seen on scope at outside hospital . RECOMMENDED MALNUTRITION DIAGNOSIS: MODERATE PROTEIN-CALORIE MALNUTRITION NUTRITION CARE PLAN Nutrition Intervention April 12, 2022 : Diet: --continue low roughage --salty and starchy foods, protein with every meal and snack Vitamins/Minerals: --MVI daily Oral supplements: --low sugar high protein drink daily --ORS daily Nutrition Monitoring AND Evaluation: improvement in GI symptoms Criteria: per pt report Need for Follow up: 06/17 @9:45am virtually PROGRESS: This is a 61 year-old female with an underlying diagnosis of ulcerative colitis since 2019 who is followed by Dr. Bell. Pt is currently being treated with Entyvio for management of her UC. She also follows closely with Dr. Mathis. [facility] [place]. Since last RDN encounter pt was started on 20mg prednisone which initially improved symptoms, but started to have issues when she started to taper. Went to another facility for second opinion and is scheduled for a colonoscopy and EDG that is scheduled for 03/20. Her Entyvio has not been approved for Q6 weeks, and is currently being treating with Entyvio every 8 weeks. Plan is to start Stelara Since last RDN note pt had scope that showed inflammation in the colon, and recommended a diverting loop ileostomy in the interim. But then was able to d/c without surgery. Today, patient reports the following: --pt was really sick in february and then was admitted in the hospital for 4 days, started steroids. They also found a stomach ulcer on EGD, and then Cdiff positive and was started on abx, and medication for the stomach ulcer --Today it was the last day of abx for from Cdiff, and is also weaning steroids down to 10mg right now, feels so much better over the last few days. She could not start the stelara until she is Cdiff negative and plan to send stool samples today/Friday --Pt is feeling more hydrated and her appetite is better. Feeling hydrated. But also had lost 25# over the last 1 month Current Clinical Symptoms # of bowel movements daily: 5-6 # of liquid stools daily: none Consistency: hard Bloody bowel movements: no Urgency: yes Abdominal pain: no Abdominal distention: yes, some but not bad Nausea/vomiting: no, related to the stomach ulcer Nutrition Intervention March 12, 2022 : Diet: --low roughage diet --met --salt and starch with every meal and snack --met Vitamins/Minerals: --continue current regimen --not met Oral supplements: --ORS for all liquids --not met Intake: Appetite is good Diet History: Breakfast - [employer] foss egg and cheese, or two eggs and toast, banana Snack - crackers chips with salad dressing, short bread cookies, bagel and Lunch - turkey and chicken and noodles, hamburger with bun Dinner - pizza, mashed potato cups (instant), beef and noodles, steak, mashed potatoes, Snack - cookies, toast, crackers Beverages - water, Ensure Clear every day (1/2 bottle every day), regular pepsi (once/day) and water Vitamins/Supplements - --vitamin D 50,000 IUS/week --B12 shots 1/month Allergies/Intolerance: --fried foods --coffee --white sugar (headache) --dairy --apples and grapes, banana (gas) --does not like fish --does not like sweet potatoes --does not like rice Azithromycin, Balsalazide, Budesonide, Codeine, Flagyl [Metronidazole], Lexapro [Escitalopram Oxalate], Mesalamine, Penicillins, Phenazopyridine, Probiotic [Lactobacillus Acidophilus], Sulfa (Sulfonamide Antibiotics), Sulfur, Vicodin [Hydrocodone-Acetaminophen], Wellbutrin [Bupropion Hcl], Xanax [Alprazolam], Zinc, and Zoloft [Sertraline] Medications: Current Outpatient Medications Medication Sig Dispense Refill dicyclomine (BENTYL) 20 mg tablet take 1 tablet by mouth before meals and at bedtime 120 tablet 2 ustekinumab (STELARA) 130 mg/26 mL injection Inject 78 mL intravenously one time only for 1 dose. 78 mL 0 ustekinumab (STELARA) 90 mg/mL injection Inject 1 mL subcutaneously every 8 weeks. 1 mL 11 predniSONE (DELTASONE) (more content not included)... [facility] 04-12-[address] - 04/12/2022 12:59 PM EDT More protein every day: Make sure >>peanut butter, almond butter, cashew butter >>canned chicken salad >>beans (kidney beans, humus, black beans, refried beans, chinchilla beans) >>can consider trying Berger-O over the counter when you are eating a meals >>lactose free milk and yogurt (Tervela whole milk) Link: https://[employer]/ultra-filtere d-milk/whole-milk/ >>Firm Tofu in smoothies >>lactose free cottage cheese >>whole eggs >>Ready made Shakes (that are not chalky) Sakshi REY, DrEd Online Doctor (will give discount code, will send lactose free) https://[employer]/pages/patientdi scount >>Ready Made protein Bars: Perfect Bars (refrigerated section), Galindo Builder, RX bars, Malinda Bars, GoMacro Bars 2. Continue Ensure Clear daily or more as needed 3. Be aware of your hydration needs, use ORS as needed (continue drip drop once per day) >>pay attention to urine color >>muscle cramping and headaches, can be signs of dehydration >>65-70 ounces of fluids needs every day. This include water, protein drinks, tea, coffee, sparkling water ect.. 4. Consider Starting MVI daily (no iron) >>[employer]'s Made Multi Vitamin https://www.[employer]/collect ions/multivitamins/products/nature -qqtx-ykspl-sqpqenb?fliwepv=722481 87610444 5. Follow up with Kendall Demarco RD on 06/17 @9:45am virtually Kendall Demarco RD documented in this encounter [facility] 04-12-2022 History of Present illness Narrative GI Nutrition TeleHealth Consult -Re Assessment This visit was performed via telehealth due to the COVID-19 epidemic as an effort to protect patients and minimize exposure. Consent from patient received to conduct visit using telehealth. This Team Access Model visit is a virtual encounter. It required patient-provider interaction for the medical decision making as documented below. Some elements copied from my note on 03/13/22 have been updated and all reflect current decision making from today, April 12, 2022 Nutrition Diagnosis: Malnutrition, related to, Cdiff and Ulcerative Colitis, as evidenced by decreased PO intake <75% over the last 3 months, 9% weight loss over the last 3 months significant, inflammation seen on scope at outside hospital . RECOMMENDED MALNUTRITION DIAGNOSIS: MODERATE PROTEIN-CALORIE MALNUTRITION NUTRITION CARE PLAN Nutrition Intervention April 12, 2022 : Diet: --continue low roughage --salty and starchy foods, protein with every meal and snack Vitamins/Minerals: --MVI daily Oral supplements: --low sugar high protein drink daily --ORS daily Nutrition Monitoring & Evaluation: improvement in GI symptoms Criteria: per pt report Need for Follow up: 06/17 @9:45am virtually PROGRESS: This is a 61 year-old female with an underlying diagnosis of ulcerative colitis since 2019 who is followed by Dr. Bell. Pt is currently being treated with Entyvio for management of her UC. She also follows closely with Dr. Mathis. [facility] [place]. Since last RDN encounter pt was started on 20mg prednisone which initially improved symptoms, but started to have issues when she started to taper. Went to another facility for second opinion and is scheduled for a colonoscopy and EDG that is scheduled for 03/20. Her Entyvio has not been approved for Q6 weeks, and is currently being treating with Entyvio every 8 weeks. Plan is to start Stelara Since last RDN note pt had scope that showed inflammation in the colon, and recommended a diverting loop ileostomy in the interim. But then was able to d/c without surgery. Today, patient reports the following: --pt was really sick in february and then was admitted in the hospital for 4 days, started steroids. They also found a stomach ulcer on EGD, and then Cdiff positive and was started on abx, and medication for the stomach ulcer --Today it was the last day of abx for from Cdiff, and is also weaning steroids down to 10mg right now, feels so much better over the last few days. She could not start the stelara until she is Cdiff negative and plan to send stool samples today/Friday --Pt is feeling more hydrated and her appetite is better. Feeling hydrated. But also had lost 25# over the last 1 month Current Clinical Symptoms # of bowel movements daily: 5-6 # of liquid stools daily: none Consistency: hard Bloody bowel movements: no Urgency: yes Abdominal pain: no Abdominal distention: yes, some but not bad Nausea/vomiting: no, related to the stomach ulcer Nutrition Intervention March 12, 2022 : Diet: --low roughage diet --met --salt and starch with every meal and snack --met Vitamins/Minerals: --continue current regimen --not met Oral supplements: --ORS for all liquids --not met Intake: Appetite is good Diet History: Breakfast - [place] egg and cheese, or two eggs and toast, banana Snack - crackers chips with salad dressing, short bread cookies, bagel and Lunch - turkey and chicken and noodles, hamburger with bun Dinner - pizza, mashed potato cups (instant), beef and noodles, steak, mashed potatoes, Snack - cookies, toast, crackers Beverages - water, Ensure Clear every day (1/2 bottle every day), regular pepsi (once/day) and water Vitamins/Supplements - --vitamin D 50,000 IUS/week --B12 shots 1/month Allergies/Intolerance: --fried foods --coffee --white sugar (headache) --dairy --apples and grapes, banana (gas) --does not like fish --does not like sweet potatoes --does not like rice Azithromycin, Balsalazide, Budesonide, Codeine, Flagyl [Metronidazole], Lexapro [Escitalopram Oxalate], Mesalamine, Penicillins, Phenazopyridine, Probiotic [Lactobacillus Acidophilus], Sulfa (Sulfonamide Antibiotics), Sulfur, Vicodin [Hydrocodone-Acetaminophen], Wellbutrin [Bupropion Hcl], Xanax [Alprazolam], Zinc, and Zoloft [Sertraline] Medications: Current Outpatient Medications Medication Sig Dispense Refill dicyclomine (BENTYL) 20 mg tablet take 1 tablet by mouth before meals and at bedtime 120 tablet 2 ustekinumab (STELARA) 130 mg/26 mL injection Inject 78 mL intravenously one time only for 1 dose. 78 mL 0 ustekinumab (STELARA) 90 mg/mL injection Inject 1 mL subcutaneously every 8 weeks. 1 mL 11 predniSONE (DELTASONE) 10 mg tablet Take 2 tablets by mouth once daily. 100 tablet 1 vedolizumab (ENTYVIO) 300 mg injection 300mg Intravenous every six weeks. 1 Each 5 polyethylene glycol 3350 (MIRALAX, GLYCOLAX) 17 gram/dose powder Use as directed for Miralax / Gatorade Bowel Prep Kit 238 g 0 Gatorade Sports Drink Use as directed for Miralax / Gatorade Bowel Prep Kit Bisacodyl (DULCOLAX) 5 mg tab Use as directed for Miralax / Gatorade Bowel Prep Kit 4 tablet 0 valACYclovir (VALTREX) 1 gram Take 1,000 mg by mouth once daily. 7 days traMADol (ULTRAM) 50 mg tablet Take 50 mg by mouth every 6 hours as needed for pain. vedolizumab (ENTYVIO) 300 mg injection 300mg Intravenous every 8 weeks. 300 mL 5 naproxen sodium (ALEVE) 220 mg tablet Take 220 mg by mouth as needed. uses 3-4 times /month for low back/extremity pain calcium carbonate (TUMS ORAL) Take 1,000 mg by mouth once daily. acetaminophen (TYLENOL) 325 mg tablet Take 2 tablets by mouth every 4 hours as needed (for pain.). 2 tablet 5 Fluticasone Furoate 27.5 mcg/actuation nasal spray Use 2 Sprays in each nostril once daily. 15.8 mL 5 levothyroxine (SYNTHROID) 50 mcg tablet Take 50 mcg by mouth once daily. No current facility-administered medications for this visit. Anthropometrics: Height: 54' Weight history: 68.6kg (04/12/22) 72.7kg (03/12/22) 75.5 (01/16/2022), 75kg 11/30/2021, 75kg (10/05/2020) Highest weight: 70.5kg (2018) Lowest weight: 81.8kg (6 years ago) UBW: 75kg BMI: 25.9--overweight Weight has decreased by 6.9kg over 3 months representing a 9% weight change- significant. Estimated needs: Calories: 1650 - 1850 kcals/day determined by 22- 25 kcal/kg Protein: 75 - 95 g/day determined by 1.0-1.2 g/kg Malnutrition Screening Significant unintentional weight loss? Yes Eating less than 75% of usual intake for more than 2 weeks? Yes Potential Signs of Inflammation: imaging studies and microbiologic cultures In the context of Acute Illness or Injury based on: Unintentional Weight Loss: >7.5% over 3 months Education Materials Provided: None this visit Referred/Supervised by: Dr. Bell/Dr. Washington MNT Billing Type: Re-assess/15 min [address] documented in this encounter [facility] 03-14-2022 Note HNO ID: [id number] Author: Jose Manuel Bell MD Service: ? Author Type: Physician Type: Progress Notes Filed: 03/14/2022 1:00 PM Note Text: Virtual visit, 20 minutes, patient agreed 62 yo with sims-ulcerative colitis, currently on Entyvio but will switch to Stelara soon. Recent ER visit showed normal labs and CT scan with chronic changes throughout the colon. C/o nausea, abd pain, and diarrhea. Zofran is helping as are consultations with our indoor landscape architect (Kendall Cunningham) and psychologist (Xander Mathis). Having colonoscopy soon locally. Ulcerative colitis - will continue to follow her via MyChart. No changes in treatment plan recommended. Jose Manuel Bell MD [facility] 03-14-2022 History of Present illness Narrative Virtual visit, 20 minutes, patient agreed 62 yo with sims-ulcerative colitis, currently on Entyvio but will switch to Stelara soon. Recent ER visit showed normal labs and CT scan with chronic changes throughout the colon. C/o nausea, abd pain, and diarrhea. Zofran is helping as are consultations with our indoor landscape architect (Kendall Cunningham) and psychologist (Xander Mathis). Having colonoscopy soon locally. Ulcerative colitis - will continue to follow her via MyChart. No changes in treatment plan recommended. Jose Manuel Bell MD documented in this encounter [facility] 03-13-2022 Note HNO ID: [id number] Author: Rodrigue Mathis PSYD Service: ? Author Type: Psychologist Type: Progress Notes Filed: 03/14/2022 8:10 AM Note Text: [facility]CH[facility] FOLLOW-UP March 13, 2022 Chanel Prasad CPT Code: 74751 Psychotherapy 38-52 minutes, 16354 Time initiated session: 2:03 AM to 2:42 AM Session #: 34 Collateral Parties Present: none. Due to the federal emergency declaration and the need for ongoing mental health services, the following visit was completed virtually and informed consent obtained orally to reduce the risk of COVID-19 exposure. Oral consent to services related to virtual visits was obtained after information was sent via Whois or read to patient if [employer] not available. Paitent verified they were at their home at address stated in the medical record. Confidential environment was assured and discussed with patient. Subjective: The patient has been working on the following: Pt stated that since last session she has been very tired and having a hard time coping with decline in health. This was processed and pt discussed self-compassion in this moment and what that would look like. Pt identified health behaviors she was able to commit to while not feeling well and provided supportive listening. Objective: Patient was seen virtually via synchronized teleconfrence The patient was casually attired. She was cooperative with the interview process. The patient had good eye contact. Appearance: Ill appearing Behavior: Behaves appropriately during the encounter Social Relatedness: Good and Appropriate for age and developmental level Speech: The patient demonstrates appropriate tone, prosody, carole, phonetics, and syntax Mood:Melancholic Affect: Blunted Thought Content: The patient endorses somatic preoccupations. The patient endorses somatic passivity. Thought Process:The thought process is appropriate for situation Hallucinations: No perceptual disturbances Delusions: No delusional thinking is evident Suicidal Ideas/Plans: The patient denies suicidal ideation, intent or plan Homicidal Ideas/Plans: Patient denies any homicidal ideation, plan or intent at this time. Anxiety: The patient is demonstrating anticipatory anxieties Orientation: Person, Place, Time and Situation Memory: Recent intact, Remote intact, and Immediate intact Concentration: Good Attention: The patient demonstrated full attention and focus throughout the interview Fund of Knowledge: Good and Appropriate for age and developmental level Judgment: Demonstrates age appropriate judgment Insight: aware of problem, admits to problem, and realizes severity of problem The patient's motivation for treatment was judged to be good. Assessment: Patient Data Generalized Anxiety Disorder Scale (WANG-7) WANG - 7 SCORES 01/25/2021 03/13/2022 WANG-7 Score 4 5 (0-4) minimal anxiety, (5-9) mild anxiety, (10-14) moderate anxiety, (15-21) severe anxiety Patient Health Questionnaire (PHQ-9) PHQ-9 08/22/2015 01/25/2021 03/13/2022 Score 0 1 20 (0-4) minimal depression, (5-9) mild depression, (10-14) moderate depression, (15-19) moderately severe depression, (20-27) severe depression PROMIS Global Health PROMIS Global Health - (T-Scores - the mean of general population = 50. Five points is a clinically meaningful difference.) 08/30/2021 11/16/2021 02/19/2022 Physical T-Score 39.8 39.8 37.4 Mental T-Score 33.8 33.8 28.4 At this time pt is reporting increased symptoms of depression and slightly increased symptoms of anxiety in addition she is noting a decline in overall psychological and physical functioning. Current Outpatient Medications Medication Sig ondansetron (ZOFRAN) 4 mg tablet Take 1 tablet by mouth every 8 hours as needed for nausea/vomiting (for nausea.). ustekinumab (STELARA) 130 mg/26 mL injection Inject 78 mL intravenously one time only for 1 dose. ustekinumab (STELARA) 90 mg/mL injection Inject 1 mL subcutaneously every 8 weeks. dicyclomine (BENTYL) 20 mg tablet Take 1 tablet by mouth before meals and at bedtime. Simethicone 125 mg chewable tablet Take 1 tablet by mouth every 6 hours as needed. hydrocortisone (ANUSOL-HC) 25 mg suppository 1 Suppository by RECTAL route twice daily. predniSONE (DELTASONE) 10 mg tablet Take 2 tablets by mouth once daily. vedolizumab (ENTYVIO) 300 mg injection 300mg Intravenous every six weeks. polyethylene glycol 3350 (MIRALAX, GLYCOLAX) 17 gram/dose powder Use as directed for Miralax / Gatorade Bowel Prep Kit Gatorade Sports Drink Use as directed for Miralax / Gatorade Bowel Prep Kit Bisacodyl (DULCOLAX) 5 mg tab Use as directed for Miralax / Gatorade Bowel Prep Kit valACYclovir (VALTREX) 1 gram Take 1,000 mg by mouth once daily. 7 days traMADol (ULTRAM) 50 mg tablet Take 50 mg by mouth every 6 hours as needed for pain. vedolizumab (ENTYVIO) 300 mg injection 300mg Intravenous every 8 weeks. napr (more content not included)... [facility] 03-13-[address] - 03/13/2022 3:58 PM EDT Salt and starch with every meal and snack >>Potatoes are currently well tolerated consider the other forms/types of potatoes as well. Mashed, instant, roasted, ghanaian fries, sweet potatoes fries, tater totes, baked, steamed/boiled >>crackers. Can add cheese and peanut butter to crackers to make more complete snack. Saltines, ritz/butter crackers, rice crackers or rice cakes are all good options >>Rice and Rice noodles. These are good options to swap out for some easy diversity. Can use rice noodles as a form of pasta dish as well 2. ORS every day, make most of your fluids coming from these >>liquid IV, drip drop, LNMT (salty one), Pedialyte >>okay to freeze and use as popsicles >>Homemade version: 1 cup juice + 3 cups water + 1/2 teaspoon of salt 3. Continue to separate fluids from meals. One of your number one goals is to stay hydrated! 4. Follow up with Kendall Demarco RD 04/12 @12:45pm virtually documented in this encounter [facility] 03-13-2022 Note HNO ID: [id number] Author: Kendall Demarco RD Service: ? Author Type: Registered Dietitian Type: Progress Notes Filed: 03/13/2022 4:07 PM Note Text: GI Nutrition TeleHealth Consult - Re Assessment This visit was performed via telehealth due to the COVID-19 epidemic as an effort to protect patients and minimize exposure. Consent from patient received to conduct visit using telehealth. This Team Access Model visit is a virtual encounter. It required patient-provider interaction for the medical decision making as documented below. Some elements copied from my note on 01/13/22 have been updated and all reflect current decision making from today, March 12, 2022 Nutrition Diagnosis: Altered Gastrointestinal Tract Function, related to, Ulcerative Colitis, as evidenced by elevated CRP and abnormal CT, increased bowel frequency and urgency, non significant weight loss and decreased PO intake . RECOMMENDED MALNUTRITION DIAGNOSIS: UNABLE TO IDENTIFY MALNUTRITION AT THIS TIME NUTRITION CARE PLAN Nutrition Intervention March 12, 2022 : Diet: --low roughage diet --salt and starch with every meal and snack Vitamins/Minerals: --continue current regimen Oral supplements: --ORS for all liquids Nutrition Monitoring AND Evaluation: improvement in GI symptoms, prevent weight loss Criteria: per pt report, weight trend Need for Follow up: 04/12 @12:45pm virtually PROGRESS: This is a 61 year-old female with an underlying diagnosis of ulcerative colitis since 2019 who is followed by Dr. Bell. Pt is currently being treated with Entyvio for management of her UC. She also follows closely with Dr. Mathis. [facility] [place]. Since last RDN encounter pt was started on 20mg prednisone which initially improved symptoms, but started to have issues when she started to taper. Went to another facility for second opinion and is scheduled for a colonoscopy and EDG that is scheduled for 03/20. Her Entyvio has not been approved for Q6 weeks, and is currently being treating with Entyvio every 8 weeks. On 03/04 she went to ED in [place], was given fluids and CT was done and showed some thickening and inflammation. Today, patient reports the following: --Pt was tearful today as she has been feeling really bad since the end of January and her UC has really effected her QOL. She is afraid to leave the house due to increased bowel movements and urgency, she has not been driving, and is limited to her daily tasks. She has a lot of cramping around meals and has limited her intake. --She has extreme fatigue and nausea and vomiting every few days. She is having a hard time getting fluids in as well. She has lot 10# over the last 1 month. --Plan is to start Stelara after the scope and EDG. --Mike did not work, and was ordered Zofran, which has been helping a little bit (Q8) --She is feeling dehydrated every day trying to get ORS and other fluids in Nutrition Intervention January 16, 2022 : Diet: --low roughage diet for now --met --1 1/2 servings of fruit per day --not met Vitamins/Minerals: --decrease vitamin D to (50mc/day) 2000 ius/day --not addressed at this time Oral supplements: --ORS once/day --met Labs: --vitamin D and b12 in three months --not addressed at this time Intake: Appetite is very poor Diet History: Breakfast - egg and toast this morning, biscuit with egg and cheese Snack - crackers, other 1/2 of sandwich Lunch - plain hamburger (1/2) toast, turkey sandwich with cheese Snack - crackers Dinner - sandwich, yellow potatoes Beverages - water liquid IV, drip drop Vitamins/Supplements - --vitamin D 50,000 IUS/week --B12 shots 1/month Allergies/Intolerance: --fried foods --coffee --white sugar (headache) --dairy --apples and grapes, banana (gas) --does not like fish --does not like sweet potatoes Output: The patient has 10+ BMs per day. The output is watery, with blood in every bowel movement, She has urgency and cramping Azithromycin, Balsalazide, Budesonide, Codeine, Flagyl [Metronidazole], Lexapro [Escitalopram Oxalate], Mesalamine, Penicillins, Phenazopyridine, Probiotic [Lactobacillus Acidophilus], Sulfa (Sulfonamide Antibiotics), Sulfur, Vicodin [Hydrocodone-Acetaminophen], Wellbutrin [Bupropion Hcl], Xanax [Alprazolam], Zinc, and Zoloft [Sertraline] Medications: Current Outpatient Medications Medication Sig Dispense Refill ondansetron (ZOFRAN) 4 mg tablet Take 1 tablet by mouth every 8 hours as needed for nausea/vomiting (for nausea.). 90 tablet 0 ustekinumab (STELARA) 130 mg/26 mL injection Inject 78 mL intravenously one time only for 1 dose. 78 mL 0 ustekinumab (STELARA) 90 mg/mL injection Inject 1 mL subcutaneously every 8 weeks. 1 mL 11 dicyclomine (BENTYL) 20 mg tablet Take 1 tablet by mouth before meals and at bedtime. 120 tablet 0 Simethicone 125 mg chewable tablet Take 1 tablet by mouth every 6 hours as needed. 120 tablet 0 hydr (more content not included)... [facility] 03-13-2022 History of Present illness Narrative Images from the original note were not included. [facility]CH[facility] FOLLOW-UP March 13, 2022 Chanel Prasad CPT Code: 45075 Psychotherapy 38-52 minutes, 61156 Time initiated session: 2:03 AM to 2:42 AM Session #: 34 Collateral Parties Present: none. Due to the federal emergency declaration and the need for ongoing mental health services, the following visit was completed virtually and informed consent obtained orally to reduce the risk of COVID-19 exposure. Oral consent to services related to virtual visits was obtained after information was sent via Whois or read to patient if MyChart not available. Paitent verified they were at their home at address stated in the medical record. Confidential environment was assured and discussed with patient. Subjective: The patient has been working on the following: Pt stated that since last session she has been very tired and having a hard time coping with decline in health. This was processed and pt discussed self-compassion in this moment and what that would look like. Pt identified health behaviors she was able to commit to while not feeling well and provided supportive listening. Objective: Patient was seen virtually via synchronized teleconfrence The patient was casually attired. She was cooperative with the interview process. The patient had good eye contact. Appearance: Ill appearing Behavior: Behaves appropriately during the encounter Social Relatedness: Good and Appropriate for age and developmental level Speech: The patient demonstrates appropriate tone, prosody, carole, phonetics, and syntax Mood:Melancholic Affect: Blunted Thought Content: The patient endorses somatic preoccupations. The patient endorses somatic passivity. Thought Process:The thought process is appropriate for situation Hallucinations: No perceptual disturbances Delusions: No delusional thinking is evident Suicidal Ideas/Plans: The patient denies suicidal ideation, intent or plan Homicidal Ideas/Plans: Patient denies any homicidal ideation, plan or intent at this time. Anxiety: The patient is demonstrating anticipatory anxieties Orientation: Person, Place, Time and Situation Memory: Recent intact, Remote intact, and Immediate intact Concentration: Good Attention: The patient demonstrated full attention and focus throughout the interview Fund of Knowledge: Good and Appropriate for age and developmental level Judgment: Demonstrates age appropriate judgment Insight: aware of problem, admits to problem, and realizes severity of problem The patient's motivation for treatment was judged to be good. Assessment: Patient Data Generalized Anxiety Disorder Scale (WANG-7) WANG - 7 SCORES 01/25/2021 03/13/2022 WANG-7 Score 4 5 (0-4) minimal anxiety, (5-9) mild anxiety, (10-14) moderate anxiety, (15-21) severe anxiety Patient Health Questionnaire (PHQ-9) PHQ-9 08/22/2015 01/25/2021 03/13/2022 Score 0 1 20 (0-4) minimal depression, (5-9) mild depression, (10-14) moderate depression, (15-19) moderately severe depression, (20-27) severe depression PROMIS Global Health PROMIS Global Health - (T-Scores - the mean of general population = 50. Five points is a clinically meaningful difference.) 08/30/2021 11/16/2021 02/19/2022 Physical T-Score 39.8 39.8 37.4 Mental T-Score 33.8 33.8 28.4 At this time pt is reporting increased symptoms of depression and slightly increased symptoms of anxiety in addition she is noting a decline in overall psychological and physical functioning. Current Outpatient Medications Medication Sig ondansetron (ZOFRAN) 4 mg tablet Take 1 tablet by mouth every 8 hours as needed for nausea/vomiting (for nausea.). ustekinumab (STELARA) 130 mg/26 mL injection Inject 78 mL intravenously one time only for 1 dose. ustekinumab (STELARA) 90 mg/mL injection Inject 1 mL subcutaneously every 8 weeks. dicyclomine (BENTYL) 20 mg tablet Take 1 tablet by mouth before meals and at bedtime. Simethicone 125 mg chewable tablet Take 1 tablet by mouth every 6 hours as needed. hydrocortisone (ANUSOL-HC) 25 mg suppository 1 Suppository by RECTAL route twice daily. predniSONE (DELTASONE) 10 mg tablet Take 2 tablets by mouth once daily. vedolizumab (ENTYVIO) 300 mg injection 300mg Intravenous every six weeks. polyethylene glycol 3350 (MIRALAX, GLYCOLAX) 17 gram/dose powder Use as directed for Miralax / Gatorade Bowel Prep Kit Gatorade Sports Drink Use as directed for Miralax / Gatorade Bowel Prep Kit Bisacodyl (DULCOLAX) 5 mg tab Use as directed for Miralax / Gatorade Bowel Prep Kit valACYclovir (VALTREX) 1 gram Take 1,000 mg by mouth once daily. 7 days traMADol (ULTRAM) 50 mg tablet Take 50 mg by mouth every 6 hours as needed for pain. vedolizumab (ENTYVIO) 300 mg injection 300mg Intravenous every 8 weeks. naproxen sodium (ALEVE) 220 mg tablet Take 220 mg by mouth as needed. uses 3-4 times /month for low back/extremity pain calcium carbonate (TUMS ORAL) Take 1,000 mg by mouth once daily. acetaminophen (TYLENOL) 325 mg tablet Take 2 tablets by mouth every 4 hours as needed (for pain.). Fluticasone Furoate 27.5 mcg/actuation nasal spray Use 2 Sprays in each nostril once daily. levothyroxine (SYNTHROID) 50 mcg tablet Take 50 mcg by mouth once daily. No current facility-administered medications for this visit. Medication Changes: No change in medications Diagnoses: F33.1 Major depressive disorder, recurrent episode, moderate with anxious distress (HCC) F54 Psychological factor affecting physical condition K51.919 Ulcerative colitis with complication, unspecified location (HCC) Plan/Recommendations: At this point pt is reporting a increase in GI symptoms and treatment should focus on basic behavioral interventions such as diaphragmatic breathing and pacing. Pt will be encouraged to increase intake and CA techniques will be utilized to assist with motivation. Pt developed a plan to sip slowly on hydration solution and when attempting food intake to eat slowly and engage in diaphragmatic breaths between bites.In addition, pt agreed to basic behavioral activation of daily shower. 1) The patient may benefit from the following from continued practice with the processes of acceptance and commitment therapy and gut-directed hypnosis 2) PLAN FOR NEXT SESSION: Continue current treatment Expand present- moment awareness Implement exercise regimen Number of weeks till next appointment: 1. Trainee signature (if applicable): Supervising Licensed Psychologist & Billing Provider: Rodrigue Mathis PSYD documented in this encounter [facility] 03-13-2022 History of Present illness Narrative GI Nutrition TeleHealth Consult - Re Assessment This visit was performed via telehealth due to the COVID-19 epidemic as an effort to protect patients and minimize exposure. Consent from patient received to conduct visit using telehealth. This Team Access Model visit is a virtual encounter. It required patient-provider interaction for the medical decision making as documented below. Some elements copied from my note on 01/13/22 have been updated and all reflect current decision making from today, March 12, 2022 Nutrition Diagnosis: Altered Gastrointestinal Tract Function, related to, Ulcerative Colitis, as evidenced by elevated CRP and abnormal CT, increased bowel frequency and urgency, non significant weight loss and decreased PO intake . RECOMMENDED MALNUTRITION DIAGNOSIS: UNABLE TO IDENTIFY MALNUTRITION AT THIS TIME NUTRITION CARE PLAN Nutrition Intervention March 12, 2022 : Diet: --low roughage diet --salt and starch with every meal and snack Vitamins/Minerals: --continue current regimen Oral supplements: --ORS for all liquids Nutrition Monitoring & Evaluation: improvement in GI symptoms, prevent weight loss Criteria: per pt report, weight trend Need for Follow up: 04/12 @12:45pm virtually PROGRESS: This is a 61 year-old female with an underlying diagnosis of ulcerative colitis since 2019 who is followed by Dr. Bell. Pt is currently being treated with Entyvio for management of her UC. She also follows closely with Dr. Mathis. [facility] [place]. Since last RDN encounter pt was started on 20mg prednisone which initially improved symptoms, but started to have issues when she started to taper. Went to another facility for second opinion and is scheduled for a colonoscopy and EDG that is scheduled for 03/20. Her Entyvio has not been approved for Q6 weeks, and is currently being treating with Entyvio every 8 weeks. On 03/04 she went to ED in [place], was given fluids and CT was done and showed some thickening and inflammation. Today, patient reports the following: --Pt was tearful today as she has been feeling really bad since the end of January and her UC has really effected her QOL. She is afraid to leave the house due to increased bowel movements and urgency, she has not been driving, and is limited to her daily tasks. She has a lot of cramping around meals and has limited her intake. --She has extreme fatigue and nausea and vomiting every few days. She is having a hard time getting fluids in as well. She has lot 10# over the last 1 month. --Plan is to start Stelara after the scope and EDG. --Mike did not work, and was ordered Zofran, which has been helping a little bit (Q8) --She is feeling dehydrated every day trying to get ORS and other fluids in Nutrition Intervention January 16, 2022 : Diet: --low roughage diet for now --met --1 1/2 servings of fruit per day --not met Vitamins/Minerals: --decrease vitamin D to (50mc/day) 2000 ius/day --not addressed at this time Oral supplements: --ORS once/day --met Labs: --vitamin D and b12 in three months --not addressed at this time Intake: Appetite is very poor Diet History: Breakfast - egg and toast this morning, biscuit with egg and cheese Snack - crackers, other 1/2 of sandwich Lunch - plain hamburger (1/2) toast, turkey sandwich with cheese Snack - crackers Dinner - sandwich, yellow potatoes Beverages - water liquid IV, drip drop Vitamins/Supplements - --vitamin D 50,000 IUS/week --B12 shots 1/month Allergies/Intolerance: --fried foods --coffee --white sugar (headache) --dairy --apples and grapes, banana (gas) --does not like fish --does not like sweet potatoes Output: The patient has 10+ BMs per day. The output is watery, with blood in every bowel movement, She has urgency and cramping Azithromycin, Balsalazide, Budesonide, Codeine, Flagyl [Metronidazole], Lexapro [Escitalopram Oxalate], Mesalamine, Penicillins, Phenazopyridine, Probiotic [Lactobacillus Acidophilus], Sulfa (Sulfonamide Antibiotics), Sulfur, Vicodin [Hydrocodone-Acetaminophen], Wellbutrin [Bupropion Hcl], Xanax [Alprazolam], Zinc, and Zoloft [Sertraline] Medications: Current Outpatient Medications Medication Sig Dispense Refill ondansetron (ZOFRAN) 4 mg tablet Take 1 tablet by mouth every 8 hours as needed for nausea/vomiting (for nausea.). 90 tablet 0 ustekinumab (STELARA) 130 mg/26 mL injection Inject 78 mL intravenously one time only for 1 dose. 78 mL 0 ustekinumab (STELARA) 90 mg/mL injection Inject 1 mL subcutaneously every 8 weeks. 1 mL 11 dicyclomine (BENTYL) 20 mg tablet Take 1 tablet by mouth before meals and at bedtime. 120 tablet 0 Simethicone 125 mg chewable tablet Take 1 tablet by mouth every 6 hours as needed. 120 tablet 0 hydrocortisone (ANUSOL-HC) 25 mg suppository 1 Suppository by RECTAL route twice daily. 60 Each 0 predniSONE (DELTASONE) 10 mg tablet Take 2 tablets by mouth once daily. 100 tablet 1 vedolizumab (ENTYVIO) 300 mg injection 300mg Intravenous every six weeks. 1 Each 5 polyethylene glycol 3350 (MIRALAX, GLYCOLAX) 17 gram/dose powder Use as directed for Miralax / Gatorade Bowel Prep Kit 238 g 0 Gatorade Sports Drink Use as directed for Miralax / Gatorade Bowel Prep Kit Bisacodyl (DULCOLAX) 5 mg tab Use as directed for Miralax / Gatorade Bowel Prep Kit 4 tablet 0 valACYclovir (VALTREX) 1 gram Take 1,000 mg by mouth once daily. 7 days traMADol (ULTRAM) 50 mg tablet Take 50 mg by mouth every 6 hours as needed for pain. vedolizumab (ENTYVIO) 300 mg injection 300mg Intravenous every 8 weeks. 300 mL 5 naproxen sodium (ALEVE) 220 mg tablet Take 220 mg by mouth as needed. uses 3-4 times /month for low back/extremity pain calcium carbonate (TUMS ORAL) Take 1,000 mg by mouth once daily. acetaminophen (TYLENOL) 325 mg tablet Take 2 tablets by mouth every 4 hours as needed (for pain.). 2 tablet 5 Fluticasone Furoate 27.5 mcg/actuation nasal spray Use 2 Sprays in each nostril once daily. 15.8 mL 5 levothyroxine (SYNTHROID) 50 mcg tablet Take 50 mcg by mouth once daily. No current facility-administered medications for this visit. Anthropometrics: Height: 54' Weight history: 72.7kg (03/12/22) 75.5 (01/16/2022), 75kg 11/30/2021, 75kg (10/05/2020) Highest weight: 70.5kg (2019) Lowest weight: 81.8kg (6 years ago) UBW: 75kg BMI: 27.5--overweight Weight has decreased by 2.8kg over 2 months representing a 3.7% weight change- non significant. Estimated needs: Calories: 1650 - 1850 kcals/day determined by 22- 25 kcal/kg Protein: 75 - 95 g/day determined by 1.0-1.2 g/kg Malnutrition Screening Significant unintentional weight loss? No Eating less than 75% of usual intake for more than 2 weeks? Yes Potential Signs of Inflammation: microbiologic cultures In the context of Acute Illness or Injury based on: Insufficient Energy Intake: <75% for >7 days Education Materials Provided: None this visit Referred/Supervised by: Dr. Bell/Dr. [place] [facility] Billing Type: Re-assess/15 min [address] documented in this encounter [facility] 03-08-2022 Miscellaneous Notes Received email from pt from her recent ER visit in [place], [place]. Patient emailed the ED visit note and the CT scan result. Given to Dr. Bell to review on 03/11/22 when he returns to the office. Tiffany Carreon RN March 08, 2022 2:51 PM Pt called this nurse in tears this morning. She has been so sick this past whole week that she has not been able to get out of bed. 03/04/22 pt went to the ER in [place]. She was given IV fluids, labs and a CT scan was done. Pt states CT only showed some thickening and inflammation.She has lost 10lbs in 2 weeks. She is very nauseated and experiences severe cramping and abdominal pain, each night, around 3am until the lens edge grinder machine. She is in the bathroom with diarrhea, stool and some blood.The Bentyl makes her terribly sick when she takes it and has since stopped. Pt also states she has a sodium taste in her mouth sometimes and during the nighth she has profuse sweating to the point she soaks the bed.Spoke with Triniadd Meng CNP, who last saw the pt and she sent Zofran 4mg every 8 hours to pt's pharmacy. This nurse asked pt to call into the office and follow up with this nurse. Pt agreed. Will send message to Dr. Bell. Tiffany Carreon RN March 08, 2022 10:39 AM documented in this encounter [facility] 02-20-2022 Miscellaneous Notes Addended by: ISELA MENG on: 02/20/2022 11:07 AM Modules accepted: Orders documented in this encounter [facility] 02-20-2022 Miscellaneous Notes Summary: Change in Therapy Discussed case with Dr. Bell, who agreed the patient would likely benefit from a change in therapy given current clinical symptoms. Called patient and asked about switching therapies from Entyvio to Stelara. Reviewed MOH, administration, and side effects of Stelara- pt verbalized understanding. She would prefer to pursue a different medication (Stelara) versus waiting on Q6 week approval of Entyvio. Will submit order for Stelara to get the PA process started and notify Teri Steiner, biologic navigator. Pt also would prefer to try Hydrocortisone suppositories versus Canasa because she now remembers that she had an intolerance to the Canasa suppositories in the past. Will place new order for hydrocortisone suppositories and update patient on the process of her Stelara approval. Isela Meng APRN.CNP February 20, 2022 11:11 AM documented in this encounter [facility] 02-20-2022 Miscellaneous Notes Submitted PA through CoverMyMeds for pt's Entyvio every 6 weeks. Ochoa: [id number] Await response. Tiffany Carreon RN February 20, 2022 9:19 AM documented in this encounter [facility] 02-19-2022 Note HNO ID: [id number] Author: Isela Meng APRN.RENEWABLE ENERGY TECHNICIAN Service: ? Author Type: Nurse Practitioner Type: Progress Notes Filed: 02/20/2022 11:06 AM Note Text: VIRTUAL VISIT FOLLOW UP Chanel Prasad [id number] 1960 has requested a video telemedicine for follow up of ulcerative colitis. Chanel Prasad verbalized informed consent to proceed with the video telemedicine follow up consultation. Chanel Prasad was informed that the details of this video visit would be recorded as part of their electronic medical record. Patient location at time of call: personal residence I had a virtual visit with Chanel Zuniga Prasad today for follow up of ulcerative colitis. Last seen on 01/01/[address] Bell. UPDATED HISTORY: - Started on 20 mg prednisone which initially helped improve symptoms (went from 15-20 BMs/day to 8-10, decreased BRBPR), but as she started to taper from 15 mg to 10 mg symptoms developed again; she self-increased back to 15 mg d/t the fatigue and multiple trips to the restroom with rectal bleeding with semi-positive response - I am extremely frustrated and can't go anywhere d/t my symptoms. I am isolated to my house. I feel like my rectal stump is inflamed and it is sore. - she also is up at least 3 times per night d/t bathroom trips - Entyvio has not yet been approved for Q6 weeks (tried to increase d/t low drug level), so she is still getting Q8 week dosing - She was prescribed Vancomycin as a therapeutic trial, but developed negative side effects after the 5th dose including fever, chills, diarrhea, and emesis - Went for a second opinion (Dr. Bello in [place]), who also recommended a colonoscopy/EGD which is tentatively scheduled on 03/20, as long as she is C-diff PCR negative - Trial of the Squatty Potty is helping with issues of incomplete defecation; has not scheduled an ARM test - Trial of Calmoseptine to help with anal soreness is helping - Has not tried Beano for abdominal distension - She is drinking at least 1 Drip Drop per day for hydration - Known anemia but unable to take iron pills d/t her sensitive stomach Current Clinical Symptoms # of bowel movements daily: 15-20 (including 3 times/night) # of liquid stools daily: 50% of BM's Consistency: watery, loose, soft, mushy, formed Bloody bowel movements: yes- intermittent, typically in the morning, BRBPR + mucous on the TP Urgency: yes- with 100% of BM's, has accidents at least once/week Abdominal pain: yes- intermittent RLQ AND RUQ cramping. Rates 09/27. Triggers: before having a BM. Alleviating factors: heating pad, Tylenol. Abdominal distention: yes- intermittent, it feels tight in my mid drift. Nausea/vomiting: no Appetite: not great- she is not eating very much but tries to keep with 3 meals/day. She is afraid to eat because she doesn't want to have to use the restroom. Gags when trying to drink nutritional shakes. Weight loss over last 3 months: no Weight today is 167 lbs (pt reports), which is stable since prior visit (166 lbs. 8 oz, 75.5 kg) Diagnosis Ulcerative Colitis: Date of diagnosis (year): 2019 Symptoms at time of dx: lost 25 lbs, increased stool frequency, BRBPR, looser stools ? Prior Medications/Dates/Reason for Switch Surgery: No: Systemic steroids last year: Yes - currently on a taper Enteric or rectal steroids last year: No Systemic 5-ASA: Yes, reason for switch: I felt so sick Local 5-ASA: Yes, reason for switch: I felt so sick Thiopurines: No Methotrexate: No Biologics: infliximab, reason for switch: allergic reaction Small molecules: No ? Current Medications Vedolizumab 300 mg IV Q8 weeks - LD: 02/14/2022 @ [facility] - started in 2019 - symptoms that have improved since starting: I have a little more span in between BMs, but otherwise I haven't felt much of a difference. Prednisone 15 mg PO daily - tapering schedule: decrease by 5 mg Q7 days, but she self-increased back to 15 mg after developing symptoms at 10 mg ? Prior Complications and Extraintestinal Manifestations Clostridium difficile: no Anemia: yes Malnutrition/nutritional deficiencies/hypoalbuminemia: no Thrombosis: no- but does have Factor V Leiden (pt reported) Ocular: yes- last year, which required steroid drops Dermatologic: no Arthropathy/Arthralgia: yes- generalized arthritis in all joints (pt reported) Oral ulcers: yes- when she had Covid Primary Sclerosing Cholangitis: no Other: no ? Labs (as of 10/2021) TB Status: Negative Hepatitis B Status: Negative TPMT: Unknown PAST SURGICAL HISTORY Procedure Laterality Date - APPENDECTOMY - COLONOSCOPY 03/12/[address], [address] Bridger Jaffe - COLONOSCOPY 11/28/2010 Diverticulosis, hemorrhoids. Dr. Kirill Conte. - COLONOSCOPY 11/2018 Chronic active colitis- [facility] - COLONOSCOPY 02/17/2020 chronic active ulcerative colitis - EGD 12/03/2018 esopohagit (more content not included)... [facility] 02-19-2022 History of Present illness Narrative Images from the original note were not included. VIRTUAL VISIT FOLLOW UP Chanel Prasad [id number] 1960 has requested a video telemedicine for follow up of ulcerative colitis. Chanel Prasad verbalized informed consent to proceed with the video telemedicine follow up consultation. Chanel Prasad was informed that the details of this video visit would be recorded as part of their electronic medical record. Patient location at time of call: personal residence I had a virtual visit with Chanel Prasad today for follow up of ulcerative colitis. Last seen on 01/01/[address] Bell. UPDATED HISTORY: - Started on 20 mg prednisone which initially helped improve symptoms (went from 15-20 BMs/day to 8-10, decreased BRBPR), but as she started to taper from 15 mg to 10 mg symptoms developed again; she self-increased back to 15 mg d/t the fatigue and multiple trips to the restroom with rectal bleeding with semi-positive response - I am extremely frustrated and can't go anywhere d/t my symptoms. I am isolated to my house. I feel like my rectal stump is inflamed and it is sore. - she also is up at least 3 times per night d/t bathroom trips - Entyvio has not yet been approved for Q6 weeks (tried to increase d/t low drug level), so she is still getting Q8 week dosing - She was prescribed Vancomycin as a therapeutic trial, but developed negative side effects after the 5th dose including fever, chills, diarrhea, and emesis - Went for a second opinion (Dr. Bello in [place]), who also recommended a colonoscopy/EGD which is tentatively scheduled on 03/20, as long as she is C-diff PCR negative - Trial of the Squatty Potty is helping with issues of incomplete defecation; has not scheduled an ARM test - Trial of Calmoseptine to help with anal soreness is helping - Has not tried Beano for abdominal distension - She is drinking at least 1 Drip Drop per day for hydration - Known anemia but unable to take iron pills d/t her sensitive stomach Current Clinical Symptoms # of bowel movements daily: 15-20 (including 3 times/night) # of liquid stools daily: 50% of BM's Consistency: watery, loose, soft, mushy, formed Bloody bowel movements: yes- intermittent, typically in the morning, BRBPR + mucous on the TP Urgency: yes- with 100% of BM's, has accidents at least once/week Abdominal pain: yes- intermittent RLQ & RUQ cramping. Rates 3/10. Triggers: before having a BM. Alleviating factors: heating pad, Tylenol. Abdominal distention: yes- intermittent, it feels tight in my mid drift. Nausea/vomiting: no Appetite: not great- she is not eating very much but tries to keep with 3 meals/day. She is afraid to eat because she doesn't want to have to use the restroom. Gags when trying to drink nutritional shakes. Weight loss over last 3 months: no Weight today is 167 lbs (pt reports), which is stable since prior visit (166 lbs. 8 oz, 75.5 kg) Diagnosis Ulcerative Colitis: Date of diagnosis (year): 2019 Symptoms at time of dx: lost 25 lbs, increased stool frequency, BRBPR, looser stools Prior Medications/Dates/Reason for Switch Surgery: No: Systemic steroids last year: Yes - currently on a taper Enteric or rectal steroids last year: No Systemic 5-ASA: Yes, reason for switch: I felt so sick Local 5-ASA: Yes, reason for switch: I felt so sick Thiopurines: No Methotrexate: No Biologics: infliximab, reason for switch: allergic reaction Small molecules: No Current Medications Vedolizumab 300 mg IV Q8 weeks - LD: 02/14/2022 @ [facility] - started in 2019 - symptoms that have improved since starting: I have a little more span in between BMs, but otherwise I haven't felt much of a difference. Prednisone 15 mg PO daily - tapering schedule: decrease by 5 mg Q7 days, but she self-increased back to 15 mg after developing symptoms at 10 mg Prior Complications and Extraintestinal Manifestations Clostridium difficile: no Anemia: yes Malnutrition/nutritional deficiencies/hypoalbuminemia: no Thrombosis: no- but does have Factor V Leiden (pt reported) Ocular: yes- last year, which required steroid drops Dermatologic: no Arthropathy/Arthralgia: yes- generalized arthritis in all joints (pt reported) Oral ulcers: yes- when she had Covid Primary Sclerosing Cholangitis: no Other: no Labs (as of 10/2021) TB Status: Negative Hepatitis B Status: Negative TPMT: Unknown PAST SURGICAL HISTORY Procedure Laterality Date APPENDECTOMY COLONOSCOPY 03/12/[address], [address] Bridger Jaffe COLONOSCOPY 11/28/2010 Diverticulosis, hemorrhoids. Dr. Kirill Conte. COLONOSCOPY 11/2018 Chronic active colitis- [facility] COLONOSCOPY 02/17/2020 chronic active ulcerative colitis EGD 12/03/2018 esopohagitis, active chronic gastritis, mild chronic duodenitis HEMORRHOID SURGERY HX 10/2018 REMOVAL OF OVARY(S) 1987 right ovary TOTAL ABDOM HYSTERECTOMY 1999 Current Outpatient Medications Medication Sig Dispense Refill predniSONE (DELTASONE) 10 mg tablet Take 2 tablets by mouth once daily. 100 tablet 1 vedolizumab (ENTYVIO) 300 mg injection 300mg Intravenous every six weeks. 1 Each 5 polyethylene glycol 3350 (MIRALAX, GLYCOLAX) 17 gram/dose powder Use as directed for Miralax / Gatorade Bowel Prep Kit 238 g 0 Gatorade Sports Drink Use as directed for Miralax / Gatorade Bowel Prep Kit Bisacodyl (DULCOLAX) 5 mg tab Use as directed for Miralax / Gatorade Bowel Prep Kit 4 tablet 0 valACYclovir (VALTREX) 1 gram Take 1,000 mg by mouth once daily. 7 days traMADol (ULTRAM) 50 mg tablet Take 50 mg by mouth every 6 hours as needed for pain. vedolizumab (ENTYVIO) 300 mg injection 300mg Intravenous every 8 weeks. 300 mL 5 naproxen sodium (ALEVE) 220 mg tablet Take 220 mg by mouth as needed. uses 3-4 times /month for low back/extremity pain calcium carbonate (TUMS ORAL) Take 1,000 mg by mouth once daily. acetaminophen (TYLENOL) 325 mg tablet Take 2 tablets by mouth every 4 hours as needed (for pain.). 2 tablet 5 Fluticasone Furoate 27.5 mcg/actuation nasal spray Use 2 Sprays in each nostril once daily. 15.8 mL 5 levothyroxine (SYNTHROID) 50 mcg tablet Take 50 mcg by mouth once daily. No current facility-administered medications for this visit. ALLERGIES Allergen Reactions Azithromycin Vomiting Balsalazide Intolerance Nausea, body aches, fatigue Budesonide Intolerance Heart palpitations, elevated glucose, nausea Codeine Other: See Comments Headache, itchy, nausea. Flagyl [Metronidazo* Mental Status Change Lexapro [Escitalopr* Other: See Comments Skin crawling Mesalamine Intolerance Upset stomach, headace, nausea, flu-like symptoms Penicillins Itching Phenazopyridine GI Upset Probiotic [Lactobac* Unknown Sulfa (Sulfonamide * Intolerance Sulfur Other: See Comments Stomach irritation Vicodin [Hydrocodon* GI Upset Wellbutrin [Bupropi* Other: See Comments Not effective Xanax [Alprazolam] Other: See Comments Nausea Zinc Unknown Zoloft [Sertraline] Other: See Comments Insomnia, jittery Personal Habits: -Smoking: no -ETOH: no -Illegal drug use/marijuana: no -NSAIDs: Aleve 2 tablets twice/week depending on body aches. Tries her best to take Tylenol over Aleve though. -Recent antibiotics: Vancomycin x 2 days in 12/2021 PHYSICAL FINDINGS OF NOTE: General: alert and appropriate, in no distress and well-hydrated, well nourished, Psych: Appropriate mood and interaction Skin: no rash noted, Head: normocephalic, no abnormality or lesion noted, Eyes: visual acuity is grossly normal, no injection, and EOMI, Ears: external ears normal without erythema or edema, Nose: external nose normal without rhinorrhea, Oropharynx: moist mucus membranes, no tonsillar hypertrophy/exudate, uvula midline and pharynx non-erythematous, lips, teeth and gums are without obvious lesion, Neck: full ROM, no cervical LNs noted, Respiratory: breathing non-labored, and no grunting/flaring/retractions, Chest: equal chest rise with normal respiratory effort, Abdomen: flat appearing. Visible protrusions or hernias: No Incisions/scars: None Areas of pain/tenderness: Denies Neuro: Patient seen sitting with normal appearing strength and coordination REVIEWED ITEMS Recent Labs Component Latest Ref Rng & Units 12/20/2021 C. difficile PCR Negative for C. difficile toxin by PCR Positive for C. difficile toxin by PCR (A) C. difficile Toxin EIA Negative for C. difficile toxin C. difficile toxin NOT DETECTED by EIA. Component Latest Ref Rng & Units 12/20/2021 Calprotectin, Fecal 0 - 50 mg/kg 961.0 (H) Component Latest Ref Rng & Units 11/07/2021 12/19/2021 Protein, Total 6.3 - 8.0 g/dL 6.7 Albumin 3.9 - 4.9 g/dL 3.9 Calcium 8.5 - 10.2 mg/dL 8.9 Bilirubin, Total 0.2 - 1.3 mg/dL 0.6 Alkaline Phosphatase 34 - 123 U/L 100 AST 13 - 35 U/L 15 ALT 7 - 38 U/L 10 Glucose 74 - 99 mg/dL 97 BUN 7 - 21 mg/dL 17 Creatinine 0.58 - 0.96 mg/dL 0.87 Sodium 136 - 144 mmol/L 136 Potassium 3.7 - 5.1 mmol/L 3.5 (L) Chloride 97 - 105 mmol/L 102 CO2 22 - 30 mmol/L 25 Anion Gap 9 - 18 mmol/L 9 eGFR >=60 mL/min/1.73m 76 WBC 3.70 - 11.00 k/uL 5.85 RBC 3.90 - 5.20 m/uL 4.41 Hemoglobin 11.5 - 15.5 g/dL 12.3 Hematocrit 36.0 - 46.0 % 38.4 MCV 80.0 - 100.0 fL 87.1 MCH 26.0 - 34.0 pg 27.9 MCHC 30.5 - 36.0 g/dL 32.0 RDW-CV 11.5 - 15.0 % 14.6 Platelet Count 150 - 400 k/uL 257 MPV 9.0 - 12.7 fL 10.0 Absolute nRBC <0.01 k/uL <0.01 Iron 41 - 186 ug/dL 35 (L) TIBC 232 - 386 ug/dL 309 Transferrin Saturation 15 - 57 % 11 (L) CRP <0.9 mg/dL 1.7 (H) Vitamin D 25 Hydroxy 31.0 - 80.0 ng/mL 47.1 Vitamin B12 232-1,245 pg/mL 1,526 (H) Ferritin 14.7 - 205.1 ng/mL 28.8 Assessment IMPRESSION (copied from previous notes and reflects today's medical decision making): Ms. Prasad is a 62 year old female with PMHx of MS, GERD, Ruslan's thyroiditis, MDD, Factor V Leiden, Covid+, and UC (dx 2019)- previously treated with prednisone, 5-ASA (rectal & PO, developed side effects), and IFX (4 infusions, developed allergic reaction). She is currently being treated with Vedolizumab sinice 2019 with mild improvement in stool frequency, though she continues to go 15-20 times/day. Last colonoscopy in 2019 at time of diagnosis revealed chronic active colitis on path in the sigmoid and rectum. VDZ drug level on 12/19/2021 was 3, with no antibodies. FC 961 (12/20/2021). After last visit she was started on Vancoymcin (took 5 doses and developed side effects), then prednisone to help with symptoms. She presents virtually today for follow up and endorses continued debilitating symptoms that cause her to be isolated in her own home. She felt somewhat improved on 20 mg of prednisone but as she began the tapering process, she developed symptoms again. She has sought a second opinion in [place] (Dr. Bello) who has her scheduled for a colonoscopy and EGD on 03/20 pending a negative C-diff PCR test. She is extremely frustrated with her symptoms and notes, this is greatly effecting my QOL. Will discuss with the biologic navigator where we are at in the Q6 week approval process for Entyvio given recent low drug levels. Advised to go back up to 20 mg of prednisone to help with symptoms while we wait on Q6 week Entyvio approval. If Q6 week dosing is not approved and/or does not improve symptoms, she may benefit from a change in therapy- likely Stelara given limited options- wouldn't try Humira given reaction to IFX and small molecules aren't an option given Factor V Leiden. She complains of rectal soreness, so will trial Canasa suppositories, as well as Simethicone and Bentyl for her other symptoms. Will discuss case with Dr. Bell. Health Maintenance: - Skin: I recommended annual full body mole check with Lead Installer- needs to schedule consult - Bones: unsure of last DXA, but says she needs a repeat scan- order previously placed - Vitamin D: last checked in 12/2021, which was normal- currently taking 50,000 units/week - Vitamin B12: last checked in 12/2021, which was elevated (says she had an injection right before her lab draw)- currently taking SQ injections monthly - Vaccines: Covid x3 (2020), Pneumonia (2014), Flu (no), Tdap (2014), Hep A/B (pt unsure), Shingrex (had shingles end of 2020 and was told to wait 1 year before getting 1st Shingrex) - DEPOSIT CLERK: does not follow annually- consult previously placed. Last PAP 3 years ago, WNL (pt reported). Hx of total hysterectomy. - Mammogram: last in 2021, abnormal (pt reported). F/U breast biopsy completed on L breast for abnormal calcium deposits, which came back normal (pt reported) - Colon CA risk: pt reported a colon polyp removed in 1998, which she describes as a bad polyp - Psychosocial assessment: I feel like I am really struggling. Dr. Mathis and my counselor are really helping, but I am extremely nervous about seeing the blood in my stool and scared it may be cancer. I am frustrated that I am confined to my house due to these symptoms. I feel like I have high anxiety because of all this. - Following with IBD RD and IBD Psych services at this time PLAN - Continue Entyvio Q8 weeks; will see if we can get Q6 week approval versus change in therapy after discussing case with Dr. Bell - Repeat CBC, CMP, CRP - Trial of Canasa (BRBPR, rectal soreness), Simethicone (abdominal distension), and Bentyl (abdominal cramping) - HM issues addressed as above - Colonoscopy and EGD on 03/20/2022 as scheduled - Follow up with Dr. Bell in 4-8 weeks I spent 37 minutes in the virtual visit, with more than 50% of the total [id number]-lh-[id number] time of the visit in counseling / coordination of care. I have confirmed and edited as necessary, the PFSH and ROS obtained by others. I will communicate my recommendations and prescriptions to the patient's primary care provider. Unrelated to E/M, telemedicine, or virtual visit service provided within previous 7 days. No E/M service or procedure anticipated within next 24 hours. Isela Meng APRN.CNP February 20, 2022 9:11 AM documented in this encounter [facility] 02-13-2022 Note HNO ID: [id number] Author: Lesly Mendes, PhD Service: ? Author Type: Resident Type: Progress Notes Filed: 02/14/2022 11:29 AM Note Text: Attestation signed by Rodrigue Mathis PSYD at 02/15/2022 8:31 AM I was present with the trainee in person, reviewed care, and provided supervision for the above note. The note was written by a supervisee under my direct supervision and all care discussed. Rodrigue Mathis Psy.D. [place] Licensed Psychologist ([id number]) [place] Licensed Psychologist ([id number]) Director of Behavioral Medicine and Staff, Department of Gastroenterology, Hepatology AND Athletic Equipment Custodian electrolysis operator, [facility] NOTE February 13, 2022 Chanel Prasad CPT Code: 23039 group psychotherapy Time initiated session: 1:00 PM to 2:33 PM Session #: 5 Due to the [facility] and [facility] of emergency and the need for ongoing mental health services, the following visit was completed virtually to reduce the risk of COVID-19 exposure. Consent related to virtual visits was provided verbally after information was sent via Whois or read to patient if MyChart not available. Patient verified they were at their home at address stated in the medical record. Confidential environment was assured and discussed with patient. Subjective: Group members were led by psychologist and post-doctoral fellow. Therapists checked in with patients regarding their past week. Themes related to acceptance, meditation, and perspective taking were discussed. Group leaders and members reflected on making choices that align with their values. Participants discussed difficulties with embracing change. Patient discussed recent physical symptoms. She described practicing present-moment awareness and assertiveness. She reported overall feeling more at peace. She mentioned struggles with change. Objective: Patient was seen virtually. The patient was casually attired. Social Relatedness: Appropriate for age and developmental level Mood: Euthymic Affect: Full and appropriate to topic The patient's motivation for treatment was judged to be good. Diagnoses: F33.1 Major depressive disorder, recurrent episode, moderate with anxious distress (HCC) F54 Psychological factor affecting physical condition K51.919 Ulcerative colitis with complication, unspecified location (HCC) Trainee signature (if applicable): ?? Lesly Mendes, PhD Postdoctoral Health Weight Loss Counselor ?? Supervising Licensed Psychologist AND?Billing Provider: ?? Rodrigue Mathis PSYD [facility] 02-13-2022 History of Present illness Narrative Images from the original note were not included. [facility] NOTE February 13, 2022 Chanel Prasad CPT Code: [id number] group psychotherapy Time initiated session: 1:00 PM to 2:33 PM Session #: 5 Due to the [facility] and [facility] of emergency and the need for ongoing mental health services, the following visit was completed virtually to reduce the risk of COVID-19 exposure. Consent related to virtual visits was provided verbally after information was sent via Whois or read to patient if MyChart not available. Patient verified they were at their home at address stated in the medical record. Confidential environment was assured and discussed with patient. Subjective: Group members were led by psychologist and post-doctoral fellow. Therapists checked in with patients regarding their past week. Themes related to acceptance, meditation, and perspective taking were discussed. Group leaders and members reflected on making choices that align with their values. Participants discussed difficulties with embracing change. Patient discussed recent physical symptoms. She described practicing present-moment awareness and assertiveness. She reported overall feeling more at peace. She mentioned struggles with change. Objective: Patient was seen virtually. The patient was casually attired. Social Relatedness: Appropriate for age and developmental level Mood: Euthymic Affect: Full and appropriate to topic The patient's motivation for treatment was judged to be good. Diagnoses: F33.1 Major depressive disorder, recurrent episode, moderate with anxious distress (HCC) F54 Psychological factor affecting physical condition K51.919 Ulcerative colitis with complication, unspecified location (HCC) Trainee signature (if applicable): Lesly Mendes, PhD Postdoctoral Health Weight Loss Counselor Supervising Licensed Psychologist & Billing Provider: Rdorigue Mathis PSYD Associated attestation - Rodrigue Mathis PSYD - 02/15/2022 8:31 AM EDT I was present with the trainee in person, reviewed care, and provided supervision for the above note. The note was written by a supervisee under my direct supervision and all care discussed. Teodoro Cross.D. [place] Licensed Psychologist ([id number]) [place] Licensed Psychologist ([id number]) Director of Behavioral Medicine and Staff, Department of Gastroenterology, Hepatology & Athletic Equipment Custodian electrolysis operator, [facility] 01-30-2022 Note HNO ID: [id number] Author: Lesly Mendes, PhD Service: ? Author Type: Resident Type: Progress Notes Filed: 01/31/2022 3:01 PM Note Text: Attestation signed by Rodrigue Mathis PSYD at 01/31/2022 3:01 PM I was present with the trainee in person, reviewed care, and provided supervision for the above note. The note was written by a supervisee under my direct supervision and all care discussed. Rodrigue Mathis Psy.D. [place] Licensed Psychologist ([id number]) [place] Licensed Psychologist ([id number]) Director of Behavioral Medicine and Staff, Department of Gastroenterology, Hepatology AND Athletic Equipment Custodian electrolysis operator, [facility] GROUP NOTE January 30, 2022 Chanel Prasad CPT Code: [id number] group psychotherapy Time initiated session: 1:00 PM to 2:31 PM Session #: 4 Due to the [facility] and [facility] and the need for ongoing mental health services, the following visit was completed virtually to reduce the risk of COVID-19 exposure. Consent related to virtual visits was provided verbally after information was sent via Whois or read to patient if [employer] not available. Patient verified they were at their home at address stated in the medical record. Confidential environment was assured and discussed with patient. Subjective: Group members were led by psychologist and post-doctoral fellow. Therapists checked in with patients regarding their past week. Themes related to difficult emotions, present-moment awareness, workability, worries, and meditation were discussed. Group leaders and members discussed the concept of mindfulness. Participants were guided through a physicalizing exercise. Patient reported experiencing increased energy and improved mood over the past weeks. She discussed engaging in pleasurable activities and benefiting from meditation. Objective: Patient was seen virtually. The patient was casually attired. Social Relatedness: Appropriate for age and developmental level Mood: Euthymic Affect: Full and appropriate to topic The patient's motivation for treatment was judged to be good. Diagnoses: F33.1 Major depressive disorder, recurrent episode, moderate with anxious distress (HCC) F54 Psychological factor affecting physical condition K51.919 Ulcerative colitis with complication, unspecified location (HCC) Trainee signature (if applicable): ?? Lesly Mendes, PhD Postdoctoral Health Weight Loss Counselor ?? Supervising Licensed Psychologist AND?Billing Provider: ?? Rodrigue Mathis PSYD [facility] 01-25-2022 Note HNO ID: [id number] Author: Rodrigue Mathis PSYD Service: ? Author Type: Psychologist Type: Progress Notes Filed: 01/28/2022 12:48 PM Note Text: Summary: Women's Group Note [facility] NOTE January 25, 2022 Chanel Prasad CPT Code: [id number] Virtual Group Psychotherapy Time initiated session: 1:00 PM to 2:30 PM Session #: 3 Subjective: Due to the federal emergency declaration and the need for ongoing mental health services, the following visit was completed virtually and informed consent obtained orally to reduce the risk of COVID-19 exposure. Oral consent to services related to virtual visits was obtained after information was sent via Whois or read to patient if [employer] not available. Patient verified they were at their home at address stated in the medical record. Confidential environment was assured and discussed with patient. Subjective: Group members were led by psychologist and post-doctoral fellow. The post-doctoral fellow re-explained the group format, objectives, and expectations for the group and its members; confidentiality and respect for each group participant were emphasized. Therapists checked in with patients regarding their current symptoms, concerns, and any recent issues that they wished to share or explore within the group. Participants were asked to reflect on the experience of sharing within a group format from the week prior, specifically regarding issues of self-acceptance, self-forgiveness, and self-compassion. Each participant was encouraged to share with the group how their personal experience of navigating Inflammatory Bowel Disease has impacted how they navigate these challenges on a daily basis. The group insurance defense paralegal utilized the gratitude affirmation exercise to help patients connect their breath with present-moment awareness. Pt states that a recent change in her medication has helped her feel less physical discomfort, which has allowed her to be more active and engage in the activities she likes and enjoys. Pt shared with the group that she is contemplating the future, manifesting the things she envisions for herself, and trying to feel more empowered to make them happen for herself. Objective: Patient was seen via tele-health The patient was well-groomed. Social Relatedness: Appropriate for age and developmental level Mood:Euthymic Affect: Full and appropriate to topic The patient's motivation for treatment was judged to be good. Diagnoses: F33.1?Major depressive disorder, recurrent episode, moderate with anxious distress (HCC) F54?Psychological factor affecting physical condition K51.919?Ulcerative colitis with complication, unspecified location (HCC) Trainee signature (if applicable): Idalmis Nava PsyD - Health Weight Loss Counselor Supervising Licensed Psychologist AND Billing Provider: I was present with the trainee in person, reviewed care, and provided supervision for the above note. The note was written by a supervisee under my direct supervision and all care discussed. Rodrigue Mathis Psy.D. [place] Licensed Psychologist ([id number]) [place] Licensed Psychologist ([id number]) Director of Behavioral Medicine and Staff, Department of Gastroenterology, Hepatology AND Athletic Equipment Custodian electrolysis operator, [facility] 01-25-2022 History of Present illness Narrative Summary: Women's Group Note Images from the original note were not included. [facility] NOTE January 25, 2022 Chanel Prasad CPT Code: [id number] Virtual Group Psychotherapy Time initiated session: 1:00 PM to 2:30 PM Session #: 3 Subjective: Due to the federal emergency declaration and the need for ongoing mental health services, the following visit was completed virtually and informed consent obtained orally to reduce the risk of COVID-19 exposure. Oral consent to services related to virtual visits was obtained after information was sent via Whois or read to patient if [employer] not available. Patient verified they were at their home at address stated in the medical record. Confidential environment was assured and discussed with patient. Subjective: Group members were led by psychologist and post-doctoral fellow. The post-doctoral fellow re-explained the group format, objectives, and expectations for the group and its members; confidentiality and respect for each group participant were emphasized. Therapists checked in with patients regarding their current symptoms, concerns, and any recent issues that they wished to share or explore within the group. Participants were asked to reflect on the experience of sharing within a group format from the week prior, specifically regarding issues of self-acceptance, self-forgiveness, and self-compassion. Each participant was encouraged to share with the group how their personal experience of navigating Inflammatory Bowel Disease has impacted how they navigate these challenges on a daily basis. The group insurance defense paralegal utilized the gratitude affirmation exercise to help patients connect their breath with present-moment awareness. Pt states that a recent change in her medication has helped her feel less physical discomfort, which has allowed her to be more active and engage in the activities she likes and enjoys. Pt shared with the group that she is contemplating the future, manifesting the things she envisions for herself, and trying to feel more empowered to make them happen for herself. Objective: Patient was seen via tele-health The patient was well-groomed. Social Relatedness: Appropriate for age and developmental level Mood:Euthymic Affect: Full and appropriate to topic The patient's motivation for treatment was judged to be good. Diagnoses: F33.1 Major depressive disorder, recurrent episode, moderate with anxious distress (HCC) F54 Psychological factor affecting physical condition K51.919 Ulcerative colitis with complication, unspecified location (HCC) Trainee signature (if applicable): Idalmis Nava PsyD - [facility] Weight Loss Counselor Supervising Licensed Psychologist & Billing Provider: I was present with the trainee in person, reviewed care, and provided supervision for the above note. The note was written by a supervisee under my direct supervision and all care discussed. Rodrigue Mathis Psy.D. [place] Licensed Psychologist ([id number]) [place] Licensed Psychologist ([id number]) Director of Behavioral Medicine and Staff, Department of Gastroenterology, Hepatology & Athletic Equipment Custodian electrolysis operator, [facility] documented in this encounter [facility] 01-18-2022 Note HNO ID: [id number] Author: Rodrigue Mathis PSYD Service: ? Author Type: Psychologist Type: Progress Notes Filed: 01/25/2022 10:20 AM Note Text: Summary: Women's Group Note [facility] NOTE January 18, 2022 Chanel Prasad CPT Code: [id number] Virtual Group Psychotherapy Time initiated session: 1:00 to 2:40 PM Session #: 2 Due to the federal emergency declaration and the need for ongoing mental health services, the following visit was completed virtually and informed consent obtained orally to reduce the risk of COVID-19 exposure. Oral consent to services related to virtual visits was obtained after information was sent via Whois or read to patient if MyChart not available. Patient verified they were at their home at address stated in the medical record. Confidential environment was assured and discussed with patient. Subjective: Group members were led by psychologist and post-doctoral fellow. The post-doctoral fellow re-explained the group format, objectives, and expectations for the group and its members; confidentiality and respect for each group participant were emphasized. Therapists checked in with patients regarding their current symptoms, concerns, and any recent issues that they wished to share or explore within the group. Participants were asked to reflect on the experience of sharing within a group format from the week prior, specifically regarding issues of intimacy and body image. Each participants was encouraged to share with the group how their personal experience of navigating Inflammatory Bowel Disease has impacted other areas of their lives. The group insurance defense paralegal utilized the gratitude affirmation exercise to help patients connect their breath with present-moment awareness. Pt shared how she has been able to feel good over the past week and return to many activities that she enjoys, which is not what she is used to due to physical pain and discomfort. Pt also shared how she has been reflecting more lately on her needs and how she would like to potentially pursue a relationship in the future without health concerns holding her back. Objective: Patient was seen via tele-health The patient was well-groomed. Social Relatedness: Appropriate for age and developmental level Mood:Euthymic Affect: Full and appropriate to topic The patient's motivation for treatment was judged to be good. Diagnoses: F33.1?Major depressive disorder, recurrent episode, moderate with anxious distress (HCC) F54?Psychological factor affecting physical condition K51.919?Ulcerative colitis with complication, unspecified location (HCC) Trainee signature (if applicable): Idalmis Nava PsyD - Health Weight Loss Counselor Supervising Licensed Psychologist AND Billing Provider: Rodrigue Mathis PSYD I was present with the trainee in person, reviewed care, and provided supervision for the above note. The note was written by a supervisee under my direct supervision and all care discussed. Rodrigue Mathis Psy.D. [place] Licensed Psychologist ([id number]) [place] Licensed Psychologist ([id number]) Director of Behavioral Medicine and Staff, Department of Gastroenterology, Hepatology AND Athletic Equipment Custodian electrolysis operator, [facility] 01-18-2022 History of Present illness Narrative Summary: Women's Group Note Images from the original note were not included. [facility] NOTE January 18, 2022 Chanel Prasad CPT Code: [id number] Virtual Group Psychotherapy Time initiated session: 1:00 to 2:40 PM Session #: 2 Due to the federal emergency declaration and the need for ongoing mental health services, the following visit was completed virtually and informed consent obtained orally to reduce the risk of COVID-19 exposure. Oral consent to services related to virtual visits was obtained after information was sent via [employer] or read to patient if MyChart not available. Patient verified they were at their home at address stated in the medical record. Confidential environment was assured and discussed with patient. Subjective: Group members were led by psychologist and post-doctoral fellow. The post-doctoral fellow re-explained the group format, objectives, and expectations for the group and its members; confidentiality and respect for each group participant were emphasized. Therapists checked in with patients regarding their current symptoms, concerns, and any recent issues that they wished to share or explore within the group. Participants were asked to reflect on the experience of sharing within a group format from the week prior, specifically regarding issues of intimacy and body image. Each participants was encouraged to share with the group how their personal experience of navigating Inflammatory Bowel Disease has impacted other areas of their lives. The group insurance defense paralegal utilized the gratitude affirmation exercise to help patients connect their breath with present-moment awareness. Pt shared how she has been able to feel good over the past week and return to many activities that she enjoys, which is not what she is used to due to physical pain and discomfort. Pt also shared how she has been reflecting more lately on her needs and how she would like to potentially pursue a relationship in the future without health concerns holding her back. Objective: Patient was seen via tele-health The patient was well-groomed. Social Relatedness: Appropriate for age and developmental level Mood:Euthymic Affect: Full and appropriate to topic The patient's motivation for treatment was judged to be good. Diagnoses: F33.1 Major depressive disorder, recurrent episode, moderate with anxious distress (HCC) F54 Psychological factor affecting physical condition K51.919 Ulcerative colitis with complication, unspecified location (HCC) Trainee signature (if applicable): Idalmis Nava PsyD - Health Weight Loss Counselor Supervising Licensed Psychologist & Billing Provider: Rodrigue Mathis PSYD I was present with the trainee in person, reviewed care, and provided supervision for the above note. The note was written by a supervisee under my direct supervision and all care discussed. Rodrigue Mathis Psy.D. [place] Licensed Psychologist ([id number]) [place] Licensed Psychologist ([id number]) Director of Behavioral Medicine and Staff, Department of Gastroenterology, Hepatology & Athletic Equipment Custodian electrolysis operator, [facility] documented in this encounter [facility] 01-16-2022 Note HNO ID: [id number] Author: Kendall Demarco RD Service: ? Author Type: Registered Dietitian Type: Progress Notes Filed: 01/18/2022 2:34 PM Note Text: GI Nutrition TeleHealth Consult ? Re Assessment This visit was performed via telehealth due to the COVID-19 epidemic as an effort to protect patients and minimize exposure. Consent from patient received to conduct visit using telehealth. This Team Access Model visit is a virtual encounter. It required patient-provider interaction for the medical decision making as documented below. Some elements copied from my note on 11/30/2021 have been updated and all reflect current decision making from today, January 16, 2022 Nutrition Diagnosis: Altered Gastrointestinal Tract Function, related to, Ulcerative Colitis , as evidenced by more frequent, urgent, lose bowel movements . RECOMMENDED MALNUTRITION DIAGNOSIS: NO MALNUTRITION IDENTIFIED NUTRITION CARE PLAN Nutrition Intervention January 16, 2022 : Diet: --low roughage diet for now --1 1/2 servings of fruit per day Vitamins/Minerals: --decrease vitamin D to (50mc/day) 2000 ius/day Oral supplements: --ORS once/day Labs: --vitamin D and b12 in three months Nutrition Monitoring AND Evaluation: improvement in GI symptoms Criteria: per pt report Need for Follow up: 03/13 @12:45pm PROGRESS: This is a 61 year-old female with an underlying diagnosis of ulcerative colitis since 2019 who is followed by Dr. Bell. Pt is currently being treated with Entyvio for management of her UC. She also follows closely with Dr. Mathis. [facility] [place]. Since last RD encounter pt had met with Isela Melara CNP who ordered some testing and recommended a scope. Had a follow up appointment with Dr. Bell who recommended increasing Entyvio to every 6 weeks based on low drug levels, and found that she had Cdiff and was placed on abx. Today, patient reports the following: --Pt was not feeling well today due to some heated work. Some nausea today but is feeling better, no abd pain, but feels bloated on a day to day basis. Pt is currently on prednisone that is helping a lot. She had a false positive with C-diff tired some abx and did not tolerate (chills, nausea, fever). She is testing for Cdiff again in 1 month and needs to be negative for the colonoscopy, that was pushed back to february. --Pt has had reflux and heartburn is taking tums and Pepcid (which has been helping). She is currently feeing hydrated. Nutrition Intervention November 29, 2021 : Diet: --limit caffeine and sugary beverages --met --separate fluids from meals --met --salt and starch with every meal --met Vitamins/Minerals: --continue vitamin D 50,000/week and B12 --met Oral supplements: --ORS daily --met ? Intake: Appetite is normal Diet History: Breakfast - toast and banana, eggs and toast Snack - crackers and pretzels Lunch - cheese burger, spaghetti, rolls/bread, sandwich (turkey and cheese), potatoes Snack - cheese puffs, peanut butter crackers Dinner - spaghetti with red sauce and meat, chicken, potatoes Snack - crackers and pretzels Beverages - drip drop, water, pepsi once/day Vitamins/Supplements - --vitamin D 50,000 IUS/week --B12 shots 1/month Allergies/Intolerance: --fried foods --coffee --white sugar (headache) --dairy --apples and grapes, banana (gas) --does not like fish --does not like sweet potatoes Output: The patient has 7-8 BMs per day. The output is small amounts and lose. Some cramping around moving her bowels, still having some urgency and accidents, not as much blood. Azithromycin, Balsalazide, Budesonide, Codeine, Flagyl [Metronidazole], Lexapro [Escitalopram Oxalate], Mesalamine, Penicillins, Phenazopyridine, Probiotic [Lactobacillus Acidophilus], Sulfa (Sulfonamide Antibiotics), Sulfur, Vicodin [Hydrocodone-Acetaminophen], Wellbutrin [Bupropion Hcl], Xanax [Alprazolam], Zinc, and Zoloft [Sertraline] Medications: Current Outpatient Medications Medication Sig Dispense Refill - predniSONE (DELTASONE) 10 mg tablet Take 2 tablets by mouth once daily. 100 tablet 1 - vedolizumab (ENTYVIO) 300 mg injection 300mg Intravenous every six weeks. 1 Each 5 - polyethylene glycol 3350 (MIRALAX, GLYCOLAX) 17 gram/dose powder Use as directed for Miralax / Gatorade Bowel Prep Kit 238 g 0 - Gatorade Sports Drink Use as directed for Miralax / Gatorade Bowel Prep Kit - Bisacodyl (DULCOLAX) 5 mg tab Use as directed for Miralax / Gatorade Bowel Prep Kit 4 tablet 0 - valACYclovir (VALTREX) 1 gram Take 1,000 mg by mouth once daily. 7 days - traMADol (ULTRAM) 50 mg tablet Take 50 mg by mouth every 6 hours as needed for pain. - vedolizumab (ENTYVIO) 300 mg injection 300mg Intravenous every 8 weeks. 300 mL 5 - naproxen sodium (ALEVE) 220 mg tablet Take 220 mg by mouth as needed. uses 3-4 times /month for low back/extremity pain - calcium carbonate (TUMS ORAL) Take 1,000 mg by mouth once da (more content not included)... [facility] 01-11-2022 Note HNO ID: [id number] Author: Rodrigue Mathis PSYD Service: ? Author Type: Psychologist Type: Progress Notes Filed: 01/14/2022 7:51 AM Note Text: Summary: Women's Psychological Support Group [facility] PSYCHOLOGICAL GROUP NOTE January 11, 2022 Chanel Prasad CPT Code: 81282 group psychotherapy Time initiated session: 1:00 PM to 2:35 PM Session #: 1 Due to the federal emergency declaration and the need for ongoing mental health services, the following visit was completed virtually and informed consent obtained orally to reduce the risk of COVID-19 exposure. Oral consent to services related to virtual visits was obtained after information was sent via Whois or read to patient if [employer] not available. Patient verified they were at their home address as stated in the medical record. Confidential environment was assured and discussed with patient. Subjective: Group members were led by psychologist and post-doctoral fellow. The post-doctoral fellow explained the group format, objectives, and expectations for the group and its members; confidentiality and respect for each group participant were emphasized. Therapists checked in with patients regarding their current symptoms, concerns, and any recent issues that they wished to share or explore within the group. Participants were asked to introduce themselves and share on any topic that resonated with them in terms of women's health issues, such as body image, sexuality, fertility, and menstruation. The intersection between the gut micro-biome and women's health issues were also explored based upon each participant's individual experience with Inflammatory Bowel Disease. The group insurance defense paralegal utilized the gratitude affirmation exercise to help patients connect their breath with present-moment awareness. Patient reported having recently had several medical concerns come up for her lately, and that she has found comfort in the company of other women who also struggle with IBD. Objective: Patient was seen virtually The patient was casually attired. Social Relatedness: Appropriate for age and developmental level Mood:Euthymic Affect: Full and appropriate to topic The patient's motivation for treatment was judged to be good. Diagnoses: F32.1 Major depressive disorder, single episode, moderate with anxious distress (HCC) F54 Psychological factor affecting physical condition K91.850 Pouchitis (HCC) Trainee signature (if applicable): Idalmis Nava PsyD - Health Weight Loss Counselor Supervising Licensed Psychologist AND Billing Provider: Rodrigue Mathis PSYD I was present with the trainee in person, reviewed care, and provided supervision for the above note. The note was written by a supervisee under my direct supervision and all care discussed. Rodrigue Mathis Psy.D. [place] Licensed Psychologist ([id number]) [place] Licensed Psychologist ([id number]) Director of Behavioral Medicine and Staff, Department of Gastroenterology, Hepatology AND Athletic Equipment Custodian electrolysis operator, [facility] 01-09-2022 Note HNO ID: [id number] Author: Lesly Mendes, PhD Service: ? Author Type: Resident Type: Progress Notes Filed: 01/10/2022 3:39 PM Note Text: Attestation signed by Rodrigue Mathis PSYD at 01/10/2022 3:39 PM I was present with the trainee in person, reviewed care, and provided supervision for the above note. The note was written by a supervisee under my direct supervision and all care discussed. Rodrigue Mathis Psy.D. [place] Licensed Psychologist ([id number]) [place] Licensed Psychologist ([id number]) Director of Behavioral Medicine and Staff, Department of Gastroenterology, Hepatology AND Athletic Equipment Custodian electrolysis operator, [facility]ICAL GROUP NOTE January 09, 2022 Chanel Prasad CPT Code: 36626 group psychotherapy Time initiated session: 1:00 PM to 2:27 PM Session #: 2 Due to the [facility] and [place] [facility] and the need for ongoing mental health services, the following visit was completed virtually to reduce the risk of COVID-19 exposure. Consent related to virtual visits was provided verbally after information was sent via MyChart or read to patient if MyChart not available. Patient verified they were at their home at address stated in the medical record. Confidential environment was assured and discussed with patient. Subjective: Group members were led by psychologist and post-doctoral fellow. Therapists checked in with patients regarding their past week. Participants were asked to share values that resonated with them. Group leaders utilized the push away paper exercise to demonstrate the consequences of pushing away thoughts versus simply holding thoughts. Patients were led through a leaves on the stream exercise to practice mindfully observing thoughts. Patient reported recently advocating for herself in her medical care. She mentioned leaving her house for the grocery store for the first time in the past several months. She endorsed health as a value. She discussed often having worries related to her ulcerative colitis. Patient described benefiting from meditation and observing thoughts. Objective: Patient was seen virtually. The patient was casually attired. Social Relatedness: Appropriate for age and developmental level Mood: Euthymic Affect: Full and appropriate to topic The patient's motivation for treatment was judged to be good. Diagnoses: F33.1 Major depressive disorder, recurrent episode, moderate with anxious distress (HCC) F54 Psychological factor affecting physical condition K51.919 Ulcerative colitis with complication, unspecified location (HCC) Trainee signature (if applicable): ?? Lesly Mendes, PhD Postdoctoral Health Weight Loss Counselor ?? Supervising Licensed Psychologist AND?Billing Provider: ?? Rodrigue Mathis PSYD [facility] 01-09-2022 History of Present illness Narrative Images from the original note were not included. [facility]CH[facility]ICAL GROUP NOTE January 09, 2022 Chanel Prasad CPT Code: 83043 group psychotherapy Time initiated session: 1:00 PM to 2:27 PM Session #: 2 Due to the federal and [facility] of emergency and the need for ongoing mental health services, the following visit was completed virtually to reduce the risk of COVID-19 exposure. Consent related to virtual visits was provided verbally after information was sent via [employer] or read to patient if MyChart not available. Patient verified they were at their home at address stated in the medical record. Confidential environment was assured and discussed with patient. Subjective: Group members were led by psychologist and post-doctoral fellow. Therapists checked in with patients regarding their past week. Participants were asked to share values that resonated with them. Group leaders utilized the push away paper exercise to demonstrate the consequences of pushing away thoughts versus simply holding thoughts. Patients were led through a leaves on the stream exercise to practice mindfully observing thoughts. Patient reported recently advocating for herself in her medical care. She mentioned leaving her house for the grocery store for the first time in the past several months. She endorsed health as a value. She discussed often having worries related to her ulcerative colitis. Patient described benefiting from meditation and observing thoughts. Objective: Patient was seen virtually. The patient was casually attired. Social Relatedness: Appropriate for age and developmental level Mood: Euthymic Affect: Full and appropriate to topic The patient's motivation for treatment was judged to be good. Diagnoses: F33.1 Major depressive disorder, recurrent episode, moderate with anxious distress (HCC) F54 Psychological factor affecting physical condition K51.919 Ulcerative colitis with complication, unspecified location (HCC) Trainee signature (if applicable): Lesly Mendes, PhD Postdoctoral Health Weight Loss Counselor Supervising Licensed Psychologist & Billing Provider: Rodrigue Mathis PSYD Associated attestation - Rodrigue Mathis PSYD - 01/10/2022 3:39 PM EDT I was present with the trainee in person, reviewed care, and provided supervision for the above note. The note was written by a supervisee under my direct supervision and all care discussed. Rodrigue Mathis Psy.D. [place] Licensed Psychologist ([id number]) [place] Licensed Psychologist ([id number]) Director of Behavioral Medicine and Staff, Department of Gastroenterology, Hepatology & Athletic Equipment Custodian electrolysis operator, [facility] 01-08-2022 Note HNO ID: [id number] Author: Jose Owens RPh Service: ? Author Type: Pharmacist Type: Progress Notes Filed: 01/08/2022 10:14 AM Note Text: [facility] received Entyvio (every 6 week dosing) Rx. Teri- please advise if the Entyvio will just continue to be processed through patient's medical insurance. If so, then I will cancel Rx we received on our end. Thanks! Jose Owens PharmD, [facility] Pharmacist, [facility] Pool: P [facility] Pool #: [id number] [facility] 01-08-2022 History of Present illness Narrative [facility] received Entyvio (every 6 week dosing) Rx. Teri- please advise if the Entyvio will just continue to be processed through patient's medical insurance. If so, then I will cancel Rx we received on our end. Thanks! Jose Owens PharmD, [facility] Pharmacist, [facility] Pool: P [facility] Pool #: [id number] documented in this encounter [facility] 01-03-2022 Miscellaneous Notes `Called and spoke to patient who states she believes the Vancocin first made her start to feel much better. But the longer she took it the sicker she felt - cold, chills, fever,dry eyes etc. She stopped taking the medication the other day. Still not feeling well.Very frustrated she continues to feel sick. Still can not leave the house to due the urgency and frequency of her diarrhea. She is schedule here soon for a colonoscopy by a doctor in [place] with who she is familiar. Then she is in the process of making an appointment with her addressograph operator. Tiffany Carreon RN January 03, 2022 3:23 PM documented in this encounter [facility] 01-02-2022 Note HNO ID: [id number] Author: Lesly Mendes, PhD Service: ? Author Type: Resident Type: Progress Notes Filed: 01/09/2022 1:47 PM Note Text: Attestation signed by Rodrigue Mathis PSYD at 01/09/2022 1:47 PM I was present with the trainee in person, reviewed care, and provided supervision for the above note. The note was written by a supervisee under my direct supervision and all care discussed. Rodrigue Mathis Psy.D. [place] Licensed Psychologist ([id number]) [place] Licensed Psychologist ([id number]) Director of Behavioral Medicine and Staff, Department of Gastroenterology, Hepatology AND Athletic Equipment Custodian electrolysis operator, [facility] PSYCHOLOGICAL GROUP NOTE January 02, 2022 Chanel Prasad CPT Code: 47899 group psychotherapy Time initiated session: 1:00 PM to 2:35 PM Session #: 1 Due to the [facility] and [facility] and the need for ongoing mental health services, the following visit was completed virtually to reduce the risk of COVID-19 exposure. Consent related to virtual visits was provided verbally after information was sent via Whois or read to patient if [employer] not available. Patient verified they were at their home at address stated in the medical record. Confidential environment was assured and discussed with patient. Subjective: Group members were led by psychologist and post-doctoral fellow. Introductions were initiated at the start of the group. Patients were asked to share what they wanted to get out of the group. Session 1 ACT content was reviewed. Patients discussed tendency to dismiss or feel dismissed in the face of struggles. Participants were invited to consider acceptance and non-judgment during difficult times. Thoughts surrounding negative life experiences were processed. Group members expressed support towards another group member. A values exercise was assigned for homework. Patient was an active participant. She reported experiencing a difficult past week which contributed to increased irritability and frustration. She discussed the ?ups and downs? of life. Objective: Patient was seen virtually. The patient was casually attired. Social Relatedness: Appropriate for age and developmental level Mood: Euthymic Affect: Full and appropriate to topic The patient's motivation for treatment was judged to be good. Diagnoses: F33.1 Major depressive disorder, recurrent episode, moderate with anxious distress (HCC) F54 Psychological factor affecting physical condition K51.919 Ulcerative colitis with complication, unspecified location (HCC) Trainee signature (if applicable): ?? Lesly Mendes, PhD Postdoctoral Health Weight Loss Counselor ?? Supervising Licensed Psychologist AND?Billing Provider: ?? Rodrigue Mathis PSYD [facility] 01-01-2022 Note HNO ID: [id number] Author: Jose Manuel Bell MD Service: ? Author Type: Physician Type: Progress Notes Filed: 01/08/2022 7:33 AM Note Text: Virtual visit, 20 minutes, patient agreed 61 yo with ulcerative colitis, on Entyvio q8w, feels an improvement with each infusion. Now with overall diarrhea, mild bleeding. Joint pain, and anxiety. Had been following with Dr. Mathis and feels she can benefit from more interaction. FC elevated, colonoscopy has been scheduled. Entyvio levels - 3, no antibodies. C difficile positive, PCR negative Crohn's disease - will: 1. Try to get Entyvio approved for every 6 weeks 2. Therapeutic trial of vancomycin. 3, Follow up with Dr. Delfina Bell MD [facility] 01-01-2022 History of Present illness Narrative Virtual visit, 20 minutes, patient agreed 61 yo with Crohn's disease, on Entyvio q8w, feels an improvement with each infusion. Now with overall diarrhea, mild bleeding. Joint pain, and anxiety. Had been following with Dr. Mathis and feels she can benefit from more interaction. FC elevated, colonoscopy has been scheduled. Entyvio levels - 3, no antibodies. C difficile positive, PCR negative Crohn's disease - will: 1. Try to get Entyvio approved for every 6 weeks 2. Therapeutic trial of vancomycin. 3, Follow up with Dr. Delfina Bell MD documented in this encounter [facility] 12-28-2021 Miscellaneous Notes Her fecal calprotectin is high. Please ask her to set up a virtual visit. Thanks. Jose Manuel Bell MD Called and spoke to patient and gave pt Dr. Bell's above information. Also scheduled patient for a Virtual Visit on 01/01/22 @ 4pm with Dr. Bell. Tiffany Carreon RN December 28, 2021 9:43 AM Patient Chanel called and would like a call back to go over her lab results (Calprotectin, Fe) she has concerns because her levels are high. Opal Cruz Ma documented in this encounter [facility] 12-24-2021 Miscellaneous Notes Contacted patient she stated that she had her breast biopsy with Dr. Cespedes @ [facility] and she will having her colonoscopy with her too on February 04, Komal Rod PSS Contacted patient, to schedule her colonoscopy she had her last one in [place] and did not have a good experience with Dr. Addison. Wondering if this patient would be suitable for [place] or [place]. Komal Rod PSS documented in this encounter [facility] 12-06-2021 Note HNO ID: [id number] Author: Isela Melara APRN.RENEWABLE ENERGY TECHNICIAN Service: ? Author Type: Nurse Practitioner Type: Progress Notes Filed: 12/06/2021 12:41 PM Note Text: VIRTUAL VISIT FOLLOW UP Chanel Prasad [id number] has requested a video telemedicine follow-up visit. Chanel Prasad verbalized informed consent to proceed with the video telemedicine follow-up visit. Chanel Prasad was informed that the details of this video visit would be recorded as part of their electronic medical record. Patient location at time of call: personal residence Patient presents with: Diarrhea Rectal Bleeding I had a virtual visit with Ms. Prasad today for follow up of ulcerative colitis. Last seen on 11/15/[address] Bell. UPDATED HISTORY: - She is having issues with fecal urgency, with associated leakage and accidents (wears pads all the time) - Wakes up at 0600 and is in the bathroom 7 times before morning ends - Sometimes not a lot of stool comes out and it can be a little pebble, even though it feels like a huge amount that needs to come out - Also notes frequent bloating that gets worse as the day goes on - Has had Covid, bronchitis, viral infections, and shingles all over the past year which she believes has contributed to symptoms Current Clinical Symptoms # of bowel movements daily: 15-20 (depending on what she eats, this has been her normal since dx). # of liquid stools daily: 25% Consistency: soft, mushy (describes as snake looking) Bloody bowel movements: yes- 70% of BMs and seen on the TP with wiping Urgency: yes- 100% of BMs with associated leakage, and accidents occur several times/week Abdominal pain: no- but does note intermittent rectal pain described as a dull pressure. Rates 8/10. Denies any triggers. Alleviating factors: tylenol Abdominal distention: yes- feels and looks bloated, but denies any triggers Nausea/vomiting: no Weight loss over last 3 months: no Diagnosis Ulcerative Colitis: Date of diagnosis (year): 2019 Symptoms at time of dx: lost 25 lbs, increased stool frequency, BRBPR, looser stools - says that on November 30, 2018, following her hemorrhoid surgery in October 2018, she was hospitalized for 1 week with the symptoms mentioned above Prior Medications/Dates/Reason for Switch Surgery: No: Systemic steroids last year: Yes - thinks she took a course in the last year Enteric or rectal steroids last year: No Systemic 5-ASA: Yes, reason for switch: I felt so sick Local 5-ASA: Yes, reason for switch: I felt so sick Thiopurines: No Methotrexate: No Biologics: infliximab, reason for switch: allergic reaction Small molecules: No Current Medications Vedolizumab 300 mg IV Q8 weeks - LD: 10/25/2021 @ [facility] - started: 2019 - symptoms that have improved since starting: I have a little more span in between BMs. Prior Complications and Extraintestinal Manifestations Clostridium difficile: no Anemia: yes Malnutrition/nutritional deficiencies/hypoalbuminemia: no Thrombosis: no- but does have Factor V Leiden (pt reported) Ocular: yes- last year, which required steroid drops Dermatologic: no Arthropathy/Arthralgia: yes- generalized arthritis in all joints (pt reported) Oral ulcers: yes- when she had Covid Primary Sclerosing Cholangitis: no Other: no Labs TB Status: Negative Hepatitis B Status: Negative TPMT: Unknown PAST MEDICAL HISTORY Diagnosis Date - Colitis - Depression - Diarrhea - Diverticulosis - GERD (gastroesophageal reflux disease) - Ruslan's thyroiditis - Hemorrhoids - History of colon polyps - History of lower GI bleeding - Hypothyroidism - Multiple sclerosis (HCC) - Personal history of colonic polyps monitored by colonoscopy q 5 years - Sciatic pain - Tension headache - Vitamin D deficiency PAST SURGICAL HISTORY Procedure Laterality Date - APPENDECTOMY - COLONOSCOPY 03/12/[address], [address] Bridger Jaffe - COLONOSCOPY 11/28/[address], [address] Kirill Conte. - COLONOSCOPY 11/2018 Chronic active colitis- [facility] - COLONOSCOPY 02/17/2020 chronic active ulcerative colitis - EGD 12/03/2018 esopohagitis, active chronic gastritis, mild chronic duodenitis - HEMORRHOID SURGERY HX 10/2018 - REMOVAL OF OVARY(S) 1987 right ovary - TOTAL ABDOM HYSTERECTOMY 1999 FAMILY HISTORY Problem Relation Age of Onset - other (No family history of MS) Other - Diabetes Mother - Heart Mother - Stroke Mother - Diabetes Brother half brother - Heart Brother half brother Social History Tobacco Use - Smoking status: Never Smoker - Smokeless tobacco: Never Used Vaping Use - Vaping Use: Never used Substance Use Topics - Alcohol use: No - Drug use: Not Currently Comment: smoked marijuana when she was younger Current Outpatient Medications Medication Sig Dispense Refill - valACYclovir (VALTR (more content not included)... [facility] 12-06-2021 Instructions Isela MARCI Melara.RENEWABLE ENERGY TECHNICIAN - 12/06/2021 10:41 AM EDT Images from the original note were not included. Bowel Preparation Instructions for: Miralax-Gatorade Preparations IF YOU DO NOT FOLLOW THESE DIRECTIONS, YOUR COLONOSCOPY WILL BE CANCELLED. [place] Instructions: Your bowel must be empty so that your doctor can clearly view your colon. Follow all of the instructions in this handout EXACTLY as they are written. Do NOT eat any solid food the ENTIRE day before your colonoscopy. Buy your bowel preparation at least 5 days before your colonoscopy. Four (4) Dulcolax laxative tablets containing 5mg of bisacodyl each (NOT Dulcolax stool softener) One (1) 8.3oz. bottle Miralax (238 grams) or generic equivalent 2 x 32oz. Bottles of Gatorade (NOT RED) Diabetic Patients: Use G2 (Gatorade 2) TRANSPORTATION on the Day of Your Exam A responsible adult MUST be present with you at Check In prior to your colonoscopy and REMAIN in the endoscopy area until you are discharged. You are NOT ALLOWED to drive, take a taxi or bus, or leave the Endoscopy Center ALONE. If you do not have a responsible hi low truck driver (family member or friend) with you to take you home, your exam cannot be done with sedation and will be cancelled. Please bring a list of all of your current medications, including any [id number] medications with you. Medications If you take insulin, diabetic medications or blood thinners such as Coumadin (warfarin), Plavix (clopidogrel), Ticlid (ticlopidine hydrochloride), Agrylin (anagrelide), Xarelto (Rivaroxaban), Pradaxa (Dabigatran), Eliquis (Apixaban), and Effient (Prasugrel). You MUST call the doctors who orders those medicines for instructions on altering the dosage before your colonoscopy. All other medications should be taken the day of the exam with a sip of water including ASPIRIN. Five (5) Days Before Your Colonoscopy Do NOT take medicines that stop diarrhea - such as Imodium, Kaopectate, or Pepto Bismol. Do NOT take fiber supplements - such as Metamucil, Citrucel, or Perdiem. Do NOT take products that contain iron - such as multi-vitamins (the label lists what is in the products). Three (3) Days Before Your Colonoscopy Do NOT eat high-fiber foods - such as popcorn, beans, seeds (flax, sunflower, quinoa), multigrain bread, nuts, salad/vegetables, or fresh and dried fruit. 2 Bowel Preparation Instructions for: Miralax-Gatorade Preparations One (1) Day Before Your Colonoscopy Only drink clear liquids the ENTIRE DAY before your colonoscopy. Do NOT eat any solid foods. Drink at least 8 ounces of clear liquids every hour after waking up. The clear liquids you can drink include: Clear Liquid (NO RED LIQUIDS) DO NOT DRINK Gatorade, Pedialyte or Powerade Clear broth or bouillon Coffee or tea (no milk or non-dairy creamer) Carbonated and non-carbonated soft drinks Jimbo-Aid or other fruit flavored drinks Strained fruit juices (no pulp) Jell-O, popsicles, hard candy Water Alcohol Milk or non-dairy creamers Noodles or vegetables in soup Juice with pulp Liquid you cannot see through Mix 1/2 of Miralax bottle (119 grams) in each 32 ounces of Gatorade bottle until dissolved. Keep cool in the refrigerator. DO NOT ADD ICE. The bowel preparation solution will be consumed in two parts. Part 1 5:00 PM - Evening before your colonoscopy Take 4 Dulcolax tablets. 6 PM - Evening before your colonoscopy Drink 32 oz. of the mixed solution. Drink an 8 oz. glass of bowel preparation every 15 minutes for a total of 4 glasses. Fifteen (15) minutes later, drink an 8 oz. glass of of clear liquids every 15 minutes for a total of 2 glasses. You may continue to drink clear liquids till midnight. Part 2 On the day of your colonoscopy you may drink clear liquids up to (three) 3 hours prior to procedure. 4 1/2 hours before your colonoscopy Take another 32 oz. bottle of mixed solution. Drink an 8 oz. glass of bowel prep every 15 minutes for a total of 4 glasses. Fifteen (15) minutes later, drink an 8 oz. glass of clear liquids every 15 minutes for a total of 2 glasses. You may continue to drink clear liquids up to (three) 3 hours before your exam. 3 06/2019 BONE MINERAL DENSITY PATIENT INSTRUCTIONS ======= Bone mineral density testing measures the amount of calcium in certain parts of your bones. This information determines how strong your bones are. The test is used to detect osteoporosis, a disease in which the bone's mineral content and density are low, increasing a person's risk of fractures. The lumbar spine (lower back) and the hip are the skeletal sites usually examined. For the test, remember that: 1. You cannot take this test if you are . 2. Eat a normal diet on the day of the test. 3. Take your medications as you normally would. 4. DO NOT take calcium supplements (such as Tums) for 24 hours before the test. 5. On the day of the test, leave valuables (jewelry or credit cards) at home. 6. The test should be performed prior to oral, rectal or IV contrast studies, or at least 7 days after any of these studies. For the test, you may be asked to wear a hospital gown. You will lie on your back, on a padded table, in a comfortable position. Generally, you can resume your usual activities immediately. documented in this encounter [facility] 12-06-2021 History of Present illness Narrative VIRTUAL VISIT FOLLOW UP Chanel Zuniga Akira [id number] has requested a video telemedicine follow-up visit. Chanel Zuniga Akira verbalized informed consent to proceed with the video telemedicine follow-up visit. Chanel Zuniga Prasad was informed that the details of this video visit would be recorded as part of their electronic medical record. Patient location at time of call: personal residence Patient presents with: Diarrhea Rectal Bleeding I had a virtual visit with Ms. Prasad today for follow up of ulcerative colitis. Last seen on 11/15/[address] Bell. UPDATED HISTORY: - She is having issues with fecal urgency, with associated leakage and accidents (wears pads all the time) - Wakes up at 0600 and is in the bathroom 7 times before morning ends - Sometimes not a lot of stool comes out and it can be a little pebble, even though it feels like a huge amount that needs to come out - Also notes frequent bloating that gets worse as the day goes on - Has had Covid, bronchitis, viral infections, and shingles all over the past year which she believes has contributed to symptoms Current Clinical Symptoms # of bowel movements daily: 15-20 (depending on what she eats, this has been her normal since dx). # of liquid stools daily: 25% Consistency: soft, mushy (describes as snake looking) Bloody bowel movements: yes- 70% of BMs and seen on the TP with wiping Urgency: yes- 100% of BMs with associated leakage, and accidents occur several times/week Abdominal pain: no- but does note intermittent rectal pain described as a dull pressure. Rates 8/10. Denies any triggers. Alleviating factors: tylenol Abdominal distention: yes- feels and looks bloated, but denies any triggers Nausea/vomiting: no Weight loss over last 3 months: no Diagnosis Ulcerative Colitis: Date of diagnosis (year): 2019 Symptoms at time of dx: lost 25 lbs, increased stool frequency, BRBPR, looser stools - says that on November 30, 2018, following her hemorrhoid surgery in October 2018, she was hospitalized for 1 week with the symptoms mentioned above Prior Medications/Dates/Reason for Switch Surgery: No: Systemic steroids last year: Yes - thinks she took a course in the last year Enteric or rectal steroids last year: No Systemic 5-ASA: Yes, reason for switch: I felt so sick Local 5-ASA: Yes, reason for switch: I felt so sick Thiopurines: No Methotrexate: No Biologics: infliximab, reason for switch: allergic reaction Small molecules: No Current Medications Vedolizumab 300 mg IV Q8 weeks - LD: 10/25/2021 @ [facility] - started: 2019 - symptoms that have improved since starting: I have a little more span in between BMs. Prior Complications and Extraintestinal Manifestations Clostridium difficile: no Anemia: yes Malnutrition/nutritional deficiencies/hypoalbuminemia: no Thrombosis: no- but does have Factor V Leiden (pt reported) Ocular: yes- last year, which required steroid drops Dermatologic: no Arthropathy/Arthralgia: yes- generalized arthritis in all joints (pt reported) Oral ulcers: yes- when she had Covid Primary Sclerosing Cholangitis: no Other: no Labs TB Status: Negative Hepatitis B Status: Negative TPMT: Unknown PAST MEDICAL HISTORY Diagnosis Date Colitis Depression Diarrhea Diverticulosis GERD (gastroesophageal reflux disease) Ruslan's thyroiditis Hemorrhoids History of colon polyps History of lower GI bleeding Hypothyroidism Multiple sclerosis (HCC) Personal history of colonic polyps monitored by colonoscopy q 5 years Sciatic pain Tension headache Vitamin D deficiency PAST SURGICAL HISTORY Procedure Laterality Date APPENDECTOMY COLONOSCOPY 03/12/[address], hemorrh[address] Bridger Jaffe COLONOSCOPY 11/28/2010 Diverticulosis, hemorrhoids. Dr. Kirill Conte. COLONOSCOPY 11/2018 Chronic active colitis- [facility] COLONOSCOPY 02/17/2020 chronic active ulcerative colitis EGD 12/03/2018 esopohagitis, active chronic gastritis, mild chronic duodenitis HEMORRHOID SURGERY HX 10/2018 REMOVAL OF OVARY(S) 1986 right ovary TOTAL ABDOM HYSTERECTOMY 1999 FAMILY HISTORY Problem Relation Age of Onset other (No family history of MS) Other Diabetes Mother Heart Mother Stroke Mother Diabetes Brother half brother Heart Brother half brother Social History Tobacco Use Smoking status: Never Smoker Smokeless tobacco: Never Used Vaping Use Vaping Use: Never used Substance Use Topics Alcohol use: No Drug use: Not Currently Comment: smoked marijuana when she was younger Current Outpatient Medications Medication Sig Dispense Refill valACYclovir (VALTREX) 1 gram Take 1,000 mg by mouth once daily. 7 days traMADol (ULTRAM) 50 mg tablet Take 50 mg by mouth every 6 hours as needed for pain. vedolizumab (ENTYVIO) 300 mg injection 300mg Intravenous every 8 weeks. 300 mL 5 naproxen sodium (ALEVE) 220 mg tablet Take 220 mg by mouth as needed. uses 3-4 times /month for low back/extremity pain calcium carbonate (TUMS ORAL) Take 1,000 mg by mouth once daily. acetaminophen (TYLENOL) 325 mg tablet Take 2 tablets by mouth every 4 hours as needed (for pain.). 2 tablet 5 Fluticasone Furoate 27.5 mcg/actuation nasal spray Use 2 Sprays in each nostril once daily. 15.8 mL 5 levothyroxine (SYNTHROID) 50 mcg tablet Take 50 mcg by mouth once daily. No current facility-administered medications for this visit. ALLERGIES Allergen Reactions Azithromycin Vomiting Balsalazide Intolerance Nausea, body aches, fatigue Budesonide Intolerance Heart palpitations, elevated glucose, nausea Codeine Other: See Comments Headache, itchy, nausea. Flagyl [Metronidazo* Mental Status Change Lexapro [Escitalopr* Other: See Comments Skin crawling Mesalamine Intolerance Upset stomach, headace, nausea, flu-like symptoms Penicillins Itching Phenazopyridine GI Upset Probiotic [Lactobac* Unknown Sulfa (Sulfonamide * Intolerance Sulfur Other: See Comments Stomach irritation Vicodin [Hydrocodon* GI Upset Wellbutrin [Bupropi* Other: See Comments Not effective Xanax [Alprazolam] Other: See Comments Nausea Zinc Unknown Zoloft [Sertraline] Other: See Comments Insomnia, jittery Personal Habits: -Smoking: no -ETOH: no -Illegal drug use/marijuana: no -NSAIDs: Aleve 2 tablets twice/week depending on body aches. Tries her best to take Tylenol over Aleve though. PHYSICAL FINDINGS OF NOTE: General: alert and appropriate, in no distress and well-hydrated, well nourished, Psych: Appropriate mood and interaction Skin: no rash noted, Head: normocephalic, no abnormality or lesion noted, Eyes: visual acuity is grossly normal, no injection, and EOMI, Ears: external ears normal without erythema or edema, Nose: external nose normal without rhinorrhea, Oropharynx: moist mucus membranes, no tonsillar hypertrophy/exudate, uvula midline and pharynx non-erythematous, lips, teeth and gums are without obvious lesion, Neck: full ROM, no cervical LNs noted, Respiratory: breathing non-labored, and no grunting/flaring/retractions, Chest: equal chest rise with normal respiratory effort, Abdomen: flat appearing. Visible protrusions or hernias: No Incisions/scars: None Areas of pain/tenderness: Denies Neuro: Patient seen sitting with normal appearing strength and coordination REVIEWED ITEMS Recent Labs: Component Latest Ref Rng & Units 11/07/2021 Protein, Total 6.3 - 8.0 g/dL 6.7 Albumin 3.9 - 4.9 g/dL 3.9 Calcium 8.5 - 10.2 mg/dL 8.9 Bilirubin, Total 0.2 - 1.3 mg/dL 0.6 Alkaline Phosphatase 34 - 123 U/L 100 AST 13 - 35 U/L 15 ALT 7 - 38 U/L 10 Glucose 74 - 99 mg/dL 97 BUN 7 - 21 mg/dL 17 Creatinine 0.58 - 0.96 mg/dL 0.87 Sodium 136 - 144 mmol/L 136 Potassium 3.7 - 5.1 mmol/L 3.5 (L) Chloride 97 - 105 mmol/L 102 CO2 22 - 30 mmol/L 25 Anion Gap 9 - 18 mmol/L 9 eGFR >=60 mL/min/1.73m 76 WBC 3.70 - 11.00 k/uL 5.85 RBC 3.90 - 5.20 m/uL 4.41 Hemoglobin 11.5 - 15.5 g/dL 12.3 Hematocrit 36.0 - 46.0 % 38.4 MCV 80.0 - 100.0 fL 87.1 MCH 26.0 - 34.0 pg 27.9 MCHC 30.5 - 36.0 g/dL 32.0 RDW-CV 11.5 - 15.0 % 14.6 Platelet Count 150 - 400 k/uL 257 MPV 9.0 - 12.7 fL 10.0 Absolute nRBC <0.01 k/uL <0.01 CRP <0.9 mg/dL 1.7 (H) Last Endoscopy: Colonoscopy (02/17/2020) - Dr. Addison Impression: - Normal mucosa in the ascending colon. Biopsied. - Erythematous, granular and nodular mucosa in the distal transverse colon. Biopsied. - Altered vascular, congested, erythematous and ulcerated mucosa in the sigmoid colon. Biopsied. - Altered vascular, erythematous, nodular and ulcerated mucosa in the rectum. Biopsied. Pathology: 1. Ascending and transverse colon, biopsy (A, B): Colonic mucosa with no significant pathologic abnormality. 2. Sigmoid colon and rectum, biopsy (C, D): Chronic active colitis; no granulomas or dysplasia. Assessment IMPRESSION (copied from previous notes and reflects today's medical decision making): Ms. Prasad is a 61 year old female with PMHx of MS, GERD, Ruslan's thyroiditis, MDD, Factor V Leiden, Covid+, and UC (dx 2019). Previously treated with prednisone, 5-ASA (rectal & PO, developed side effects), and IFX (4 infusions, developed allergic reaction) and currently being treated with Vedolizumab sinice 2019 with mild improvement in stool frequency, though she continues to go 15-20 times/day. Last colonoscopy in 2019 at time of diagnosis revealed chronic active colitis on path in the sigmoid and rectum. She presents virtually today in the context of a flare and endorses BRBPR, fecal urgency with associated leakage and accidents, rectal pain, abdominal distension, and incomplete defecation. I am uncertain whether her symptoms stem from active disease + pelvic floor dysfunction (PFD) and/or an underlying IBS + active hemorrhoids causing BRBPR. Will plan to further assess disease activity and endoscopic response to Vedolizumab with a colonoscopy. If normal results, could consider further imaging. Additionally, will obtain a VDZ drug level in order to ensure optimized dosing. For the incomplete evacuation, will trial a Squatty Potty and order ARM to further assess PFD. Will order stool studies to r/o infectious etiology (though unlikely) and to obtain a baseline fecal calprotectin. Will implement other interventions to help with rectal pain like the use of a bidet, sitz baths, and Calmoseptine. Discussed the use of Uceris foam, but pt deferred for now. Health Maintenance: - Skin: I recommended annual full body mole check with Lead Installer- consult placed - Bones: says it has been years- order placed for repeat exam - Vitamin D: last checked in 09/2020, which was low- currently taking 50,000 units/week (will recheck) - Vitamin B12: last checked in 2015, which was normal- received vitamin B12 SQ every month (will recheck) - Vaccines: Covid x3 (2020), Pneumonia (2014), Flu (no), Tdap (2014), Hep A/B (pt unsure), Shingrex (had shingles end of 2020 and was told to wait 1 year before getting 1st Shingrex) - DEPOSIT CLERK: does not follow annually- consult placed. Last PAP 3 years ago, WNL (pt reported). Hx of total hysterectomy. - Mammogram: last in 2021, abnormal (pt reported). F/U breast biopsy completed on L breast for abnormal calcium deposits, which came back normal (pt reported) - Colon CA risk: pt reported a colon polyp removed in 1998, which she describes as a bad polyp - Psychosocial assessment: I am hanging in there, but frustrated intermittently with going so much and the incontinence. I just wish we could figure this all out and I could feel better. - Following with Kendall Demarco, IBD RD, and Dr. Mathis PLAN - Continue Vedolizumab Q8 weeks - VDZ drug level to optimize dosing, to be drawn prior to next dose on 12/20/2021 - Stool studies (c-diff, fecal calprotectin) - Colonoscopy to assess endoscopic response to Vedolizumab and assess disease activity - ARM testing to rule out PFD - Trial of a Squatty Potty to help with issues of incomplete defecation - Trial of Calmoseptine to help with anal soreness - Encouraged to use Sitz baths to help with rectal soreness (1-3 times/day for 10-15 minutes) - Trial of Beano (2 tabs before each meal) to help with abdominal distension. If this does not help, consider using GasX in the future - Encouraged to avoid carbonated beverages, sugar alcohols, and artifical sugars to help with bloating - Encouraged to drink 1/2 body weight in fluid ounces and to incorporate ORS (Drip Drop, Pedialyte, Liquid IV) to help optimize hydration - HM issues addressed as above - Continue following with Kendall Demarco IBD RD, and Dr. Mathis, IBD psych - Follow up with Dr. Bell or mi s/p colonoscopy I spent 55 minutes in the virtual visit, with more than 50% of the total [id number] time of the visit in counseling / coordination of care. I have confirmed and edited as necessary, the PFSH and ROS obtained by others. I will communicate my recommendations and prescriptions to the patient's primary care provider. Unrelated to E/M, telemedicine, or virtual visit service provided within previous 7 days. No E/M service or procedure anticipated within next 24 hours. Isela Melara APRN.CNP December 06, 2021 10:38 AM documented in this encounter [facility] 12-04-2021 Miscellaneous Notes Received staff message from Kendall Demarco RD to call and schedule pt for an appointment with Michelle Saritha ICE GRINDER. RENEWABLE ENERGY TECHNICIAN. Called and spoke to pt and she was very agreeable to have a virtual visit with Trinidad Melara. Scheduled pt for 12/06/21 @ 9am for a virtual visit. Trinidad Melara advised of appt. Tiffany Carreon RN December 04, 2021 3:00 PM documented in this encounter [facility] 11-30-2021 Note HNO ID: [id number] Author: Kendall Demarco RD Service: ? Author Type: Registered Dietitian Type: Progress Notes Filed: 12/04/2021 11:23 AM Note Text: GI Nutrition TeleHealth Consult ? Initial Assessment This visit was performed via telehealth due to the COVID-19 epidemic as an effort to protect patients and minimize exposure. Consent from patient received to conduct visit using telehealth. This Team Access Model visit is a virtual encounter. It required patient-provider interaction for the medical decision making as documented below. Nutrition Diagnosis: Altered Gastrointestinal Tract Function, related to, Ulcerative Colitis , as evidenced by irregular bowel movements, urgency, and abd pain . RECOMMENDED MALNUTRITION DIAGNOSIS: UNABLE TO IDENTIFY MALNUTRITION AT THIS TIME, pt eating less over the last 1 year, able to maintain weight unable to perform nutrition focused physical exam NUTRITION CARE PLAN Nutrition Intervention November 29, 2021 : Diet: --limit caffeine and sugary beverages --separate fluids from meals --salt and starch with every meal Vitamins/Minerals: --continue vitamin D 50,000/week and B12 Oral supplements: --ORS daily Nutrition Monitoring AND Evaluation: improvement in GI symptoms Criteria: per pt report Need for Follow up: 01/16 @3:15pm virtually This is a 61 year-old female with an underlying diagnosis of ulcerative colitis since 2019 who is followed by Dr. Bell. Pt is currently being treated with Entyvio for management of her UC. She also follows closely with Dr. Mathis. PM of MS Today, patient reports the following: --pt states that she has some abd pain, but thinks it has been relate to stress, when she has other pain it is more related to her MS, but does not effect intake or appetite --no persistent nausea, some reflux and uses Pepcid which helps --She was recently on abx but states it did not effect her bowel movements --has been on Entyvio for about 1 year (next infusion on the 12/20) and states that she is still having persistent urgency and frequent bowel movements with some blood. States that since starting Entyvio she feels about the same. She often fees dehydrated from frequent bowel movements. Imodium has not helped in the past. Intake: Appetite is fair Diet History: Breakfast - 2 pieces of toast with butter, and 1/2 banana and egg and (pepsi) Lunch - turkey and cheese sandwich, hamburger with a bun Snack - peanut butter crackers Dinner - hamburger with bun, crackers, cream chicken and mashed potatoes, spaghetti with red pablito sauce, hash browns Snack - chocolate truffles, cookies Beverages - water Vitamins/Supplements - --vitamin D 50,000 IUS/week --B12 shots 1/month Allergies/Intolerance: --fried foods --coffee --white sugar (headache) --dairy --apples and grapes, banana (gas) Output: The patient has 10-15 times/day BMs per day. The output is formed and snake like, denies cramping around bowel, has urgency, blood on the toilet paper, but has improved, has been bright red in the past Azithromycin, Balsalazide, Budesonide, Codeine, Flagyl [Metronidazole], Lexapro [Escitalopram Oxalate], Mesalamine, Penicillins, Phenazopyridine, Probiotic [Lactobacillus Acidophilus], Sulfa (Sulfonamide Antibiotics), Sulfur, Vicodin [Hydrocodone-Acetaminophen], Wellbutrin [Bupropion Hcl], Xanax [Alprazolam], Zinc, and Zoloft [Sertraline] Medications: Current Outpatient Medications Medication Sig Dispense Refill - gabapentin (NEURONTIN) 600 mg tablet Take 600 mg by mouth three times daily. prn - valACYclovir (VALTREX) 1 gram Take 1,000 mg by mouth once daily. 7 days - traMADol (ULTRAM) 50 mg tablet Take 50 mg by mouth every 6 hours as needed for pain. - budesonide (UCERIS) 9 mg TaDE Take 1 tablet by mouth once daily. 90 tablet 4 - vedolizumab (ENTYVIO) 300 mg injection 300mg IV week 0, week 2, and week 6. 300 mL 2 - vedolizumab (ENTYVIO) 300 mg injection 300mg Intravenous every 8 weeks. 300 mL 5 - naproxen sodium (ALEVE) 220 mg tablet Take 220 mg by mouth as needed. uses 3-4 times /month for low back/extremity pain - montelukast (SINGULAIR) 10 mg tablet Take 10 mg by mouth daily at bedtime. - calcium carbonate (TUMS ORAL) Take 1,000 mg by mouth once daily. - acetaminophen (TYLENOL) 325 mg tablet Take 2 tablets by mouth every 4 hours as needed (for pain.). 2 tablet 5 - Fluticasone Furoate 27.5 mcg/actuation nasal spray Use 2 Sprays in each nostril once daily. 15.8 mL 5 - inFLIXimab (REMICADE) 100 mg injection Remicade 400mg IV at weeks 0, 2, 6, and every 8 weeks. 400 mg 5 - predniSONE (DELTASONE) 10 mg tablet Take 2 tablets by mouth once daily. (Patient not taking: Reported on 06/22/2020 ) 100 tablet 2 - hydrocortisone (COLOCORT) 100 mg/60 mL enema Use rectally as directed (Patient not taking: Reported on 06/22/2020 ) 30 Bottle 1 - pantoprazole DR (PROTONIX) 40 mg tablet Take 40 mg by mouth once d (more content not included)... [facility] 11-30-2021 Instructions Kendall Demarco, JOAN - 11/30/2021 2:01 PM EDT Recommendations for Diarrhea 1. Limit caffeine, sugary beverages (juice, pop, energy drinks, sweet tea, mountain dew, sweetened coffee drinks) concentrated sweets, gummies, candy, excessive jelly and syrups 2. Separate fluid from meals, only 4 ounces at meals. Fluids can flush food through the bowel and contribute to lose stools 3. Sip slowly, no gulping! No chugging water 4. Include foods that have probiotics in them, yogurt 5. Drink an oral rehydration solution that has more salt in it to keep you more hydrated that water alone (Liquid IV, Drip Drop, Gatorade G2, broth with sugar and salt, coconut water) Can make 50% of your liquids coming from these solutions 6. >>Home recipe 1 cup juice + 3 cups water + 1 tsp salt 7. Sat and starch with every meal and snack (examples: rice, pasta, bread, mashed potatoes, crackers, smooth peanut butter, banana, pretzels, tapioca, canned soups, canned vegetables, baked lays) Do not be afraid to salt your meals 8. Avoid Sugar Alcohols. These are found in sugar free or diet/ reduced sugar foods. Ingredient ending in an -ol (mannitol, sorbitol, xylitol, erythritol) should be avoided. 9. Can also start Metamucil supplement (psyllium husk) once in the morning 2. Follow up with Kendall Demarco RD in 01/16@ 3:15 virtually 3. Will reach out to Dr. Bell's team about follow up documented in this encounter [facility] 11-30-2021 History of Present illness Narrative GI Nutrition TeleHealth Consult Initial Assessment This visit was performed via telehealth due to the COVID-19 epidemic as an effort to protect patients and minimize exposure. Consent from patient received to conduct visit using telehealth. This Team Access Model visit is a virtual encounter. It required patient-provider interaction for the medical decision making as documented below. Nutrition Diagnosis: Altered Gastrointestinal Tract Function, related to, Ulcerative Colitis , as evidenced by irregular bowel movements, urgency, and abd pain . RECOMMENDED MALNUTRITION DIAGNOSIS: UNABLE TO IDENTIFY MALNUTRITION AT THIS TIME, pt eating less over the last 1 year, able to maintain weight unable to perform nutrition focused physical exam NUTRITION CARE PLAN Nutrition Intervention November 29, 2021 : Diet: --limit caffeine and sugary beverages --separate fluids from meals --salt and starch with every meal Vitamins/Minerals: --continue vitamin D 50,000/week and B12 Oral supplements: --ORS daily Nutrition Monitoring & Evaluation: improvement in GI symptoms Criteria: per pt report Need for Follow up: 01/16 @3:15pm virtually This is a 61 year-old female with an underlying diagnosis of ulcerative colitis since 2019 who is followed by Dr. Bell. Pt is currently being treated with Entyvio for management of her UC. She also follows closely with Dr. Mathis. [facility], patient reports the following: --pt states that she has some abd pain, but thinks it has been relate to stress, when she has other pain it is more related to her MS, but does not effect intake or appetite --no persistent nausea, some reflux and uses Pepcid which helps --She was recently on abx but states it did not effect her bowel movements --has been on Entyvio for about 1 year (next infusion on the 12/20) and states that she is still having persistent urgency and frequent bowel movements with some blood. States that since starting Entyvio she feels about the same. She often fees dehydrated from frequent bowel movements. Imodium has not helped in the past. Intake: Appetite is fair Diet History: Breakfast - 2 pieces of toast with butter, and 1/2 banana and egg and (pepsi) Lunch - turkey and cheese sandwich, hamburger with a bun Snack - peanut butter crackers Dinner - hamburger with bun, crackers, cream chicken and mashed potatoes, spaghetti with red pablito sauce, hash browns Snack - chocolate truffles, cookies Beverages - water Vitamins/Supplements - --vitamin D 50,000 IUS/week --B12 shots 1/month Allergies/Intolerance: --fried foods --coffee --white sugar (headache) --dairy --apples and grapes, banana (gas) Output: The patient has 10-15 times/day BMs per day. The output is formed and snake like, denies cramping around bowel, has urgency, blood on the toilet paper, but has improved, has been bright red in the past Azithromycin, Balsalazide, Budesonide, Codeine, Flagyl [Metronidazole], Lexapro [Escitalopram Oxalate], Mesalamine, Penicillins, Phenazopyridine, Probiotic [Lactobacillus Acidophilus], Sulfa (Sulfonamide Antibiotics), Sulfur, Vicodin [Hydrocodone-Acetaminophen], Wellbutrin [Bupropion Hcl], Xanax [Alprazolam], Zinc, and Zoloft [Sertraline] Medications: Current Outpatient Medications Medication Sig Dispense Refill gabapentin (NEURONTIN) 600 mg tablet Take 600 mg by mouth three times daily. prn valACYclovir (VALTREX) 1 gram Take 1,000 mg by mouth once daily. 7 days traMADol (ULTRAM) 50 mg tablet Take 50 mg by mouth every 6 hours as needed for pain. budesonide (UCERIS) 9 mg TaDE Take 1 tablet by mouth once daily. 90 tablet 4 vedolizumab (ENTYVIO) 300 mg injection 300mg IV week 0, week 2, and week 6. 300 mL 2 vedolizumab (ENTYVIO) 300 mg injection 300mg Intravenous every 8 weeks. 300 mL 5 naproxen sodium (ALEVE) 220 mg tablet Take 220 mg by mouth as needed. uses 3-4 times /month for low back/extremity pain montelukast (SINGULAIR) 10 mg tablet Take 10 mg by mouth daily at bedtime. calcium carbonate (TUMS ORAL) Take 1,000 mg by mouth once daily. acetaminophen (TYLENOL) 325 mg tablet Take 2 tablets by mouth every 4 hours as needed (for pain.). 2 tablet 5 Fluticasone Furoate 27.5 mcg/actuation nasal spray Use 2 Sprays in each nostril once daily. 15.8 mL 5 inFLIXimab (REMICADE) 100 mg injection Remicade 400mg IV at weeks 0, 2, 6, and every 8 weeks. 400 mg 5 predniSONE (DELTASONE) 10 mg tablet Take 2 tablets by mouth once daily. (Patient not taking: Reported on 06/22/2020 ) 100 tablet 2 hydrocortisone (COLOCORT) 100 mg/60 mL enema Use rectally as directed (Patient not taking: Reported on 06/22/2020 ) [address] (PROTONIX) 40 mg tablet Take 40 mg by mouth once daily. levothyroxine (SYNTHROID) 50 mcg tablet Take 50 mcg by mouth once daily. cholecalciferol (VITAMIN D3) 50 mcg (2,000 unit) tablet Take 1 tablet by mouth once daily. Ascorbic Acid (VITAMIN C) 250 mg chew Take 500 mg by mouth once daily. multivitamin with minerals (HAIR,SKIN AND NAILS ORAL) Take by mouth once daily. polyethylene glycol 3350 (MIRALAX, GLYCOLAX) 17 gram/dose powder Use as directed for Miralax / Gatorade Bowel Prep Kit 238 g 0 Gatorade Sports Drink Use as directed for Miralax / Gatorade Bowel Prep Kit 64 oz 0 Omeprazole 40 mg capsule Take 40 mg by mouth as needed. LORazepam (ATIVAN) 1 mg tablet Take 1 tablet by mouth. take one(1) tablet 1 hour before the MRI, and 1 tablet at the time of the MRI if needed 2 tablet 0 naproxen (NAPROSYN) 500 mg tablet Take 1 tablet by mouth twice daily as needed (for pain. Take with food.). 0 COMPOUNDED PRESCRIPTION catalyn 2 in AM and one in PM 0 No current facility-administered medications for this visit. Anthropometrics: Height: 54' Weight history: 75kg 11/30/2021, 75kg (10/05/2020) Highest weight: 70.5kg (2019) Lowest weight: 81.8kg (6 years ago) UBW: 75kg BMI: 28.3 --overweight Weight has remained stable over the last 3 months Estimated needs: Calories: 1650 - 1850 kcals/day determined by 22- 25 kcal/kg Protein: 75 - 95 g/day determined by 1.0-1.2 g/kg Malnutrition Screening Significant unintentional weight loss? No Eating less than 75% of usual intake for more than 2 weeks? Yes Potential Signs of Inflammation: chronic condition Education Materials Provided: None this visit Referred/Supervised by: Dr. Bell/Dr. Delfina BELTRÁN Billing Type: Re-assess/15 min [address] documented in this encounter [facility] 11-29-2021 Note HNO ID: [id number] Author: Rodrigue Mathis PSYD Service: ? Author Type: Psychologist Type: Progress Notes Filed: 11/30/2021 8:32 AM Note Text: [facility] FOLLOW-UP November 29, 2021 Chanel Prasad CPT Code: 85557 Psychotherapy 53+ minutes Time initiated session: 3:04 PM to 4:01 PM Session #: 33 Collateral Parties Present: none. Due to the federal emergency declaration and the need for ongoing mental health services, the following visit was completed virtually and informed consent obtained orally to reduce the risk of COVID-19 exposure. Oral consent to services related to virtual visits was obtained after information was sent via [employer] or read to patient if [employer] not available. Paitent verified they were at their home at address stated in the medical record. Confidential environment was assured and discussed with patient. Subjective: The patient has been working on the following: PT stated that since last visit she continues to struggle with thoughts of needing to fix her life and this coming against living with symptoms. Pt was invited to mindfully explore thoughts and struggle that stems from thoughts and then ground in the moment. This was processed and value of self-care and automatic thoughts were processed. Objective: Patient was seen virtually via synchronized teleconfrence The patient was casually attired. She was cooperative with the interview process. The patient had good eye contact. Appearance: Casually dressed Behavior: Behaves appropriately during the encounter Social Relatedness: Good and Appropriate for age and developmental level Speech: The patient demonstrates appropriate tone, prosody, carole, phonetics, and syntax Mood:Tearful Affect: Full and appropriate to topic Thought Content: The patient endorses somatic preoccupations. Thought Process:The thought process is appropriate for situation Hallucinations: No perceptual disturbances Delusions: No delusional thinking is evident Suicidal Ideas/Plans: The patient denies suicidal ideation, intent or plan Homicidal Ideas/Plans: Patient denies any homicidal ideation, plan or intent at this time. Anxiety: The patient is demonstrating anticipatory anxieties Orientation: Person, Place, Time and Situation Memory: Recent intact, Remote intact and Immediate intact Concentration: Good Attention: The patient demonstrated full attention and focus throughout the interview Fund of Knowledge: Good and Appropriate for age and developmental level Judgment: Demonstrates age appropriate judgment Insight: aware of problem, admits to problem and realizes severity of problem The patient's motivation for treatment was judged to be good. Assessment: No measures avialable Current Outpatient Medications Medication Sig - gabapentin (NEURONTIN) 600 mg tablet Take 600 mg by mouth three times daily. prn - valACYclovir (VALTREX) 1 gram Take 1,000 mg by mouth once daily. 7 days - traMADol (ULTRAM) 50 mg tablet Take 50 mg by mouth every 6 hours as needed for pain. - budesonide (UCERIS) 9 mg TaDE Take 1 tablet by mouth once daily. - vedolizumab (ENTYVIO) 300 mg injection 300mg IV week 0, week 2, and week 6. - vedolizumab (ENTYVIO) 300 mg injection 300mg Intravenous every 8 weeks. - naproxen sodium (ALEVE) 220 mg tablet Take 220 mg by mouth as needed. uses 3-4 times /month for low back/extremity pain - montelukast (SINGULAIR) 10 mg tablet Take 10 mg by mouth daily at bedtime. - calcium carbonate (TUMS ORAL) Take 1,000 mg by mouth once daily. - acetaminophen (TYLENOL) 325 mg tablet Take 2 tablets by mouth every 4 hours as needed (for pain.). - Fluticasone Furoate 27.5 mcg/actuation nasal spray Use 2 Sprays in each nostril once daily. - inFLIXimab (REMICADE) 100 mg injection Remicade 400mg IV at weeks 0, 2, 6, and every 8 weeks. - predniSONE (DELTASONE) 10 mg tablet Take 2 tablets by mouth once daily. (Patient not taking: Reported on 06/22/2020 ) - hydrocortisone (COLOCORT) 100 mg/60 mL enema Use rectally as directed (Patient not taking: Reported on 06/22/2020 ) - pantoprazole DR (PROTONIX) 40 mg tablet Take 40 mg by mouth once daily. - levothyroxine (SYNTHROID) 50 mcg tablet Take 50 mcg by mouth once daily. - cholecalciferol (VITAMIN D3) 50 mcg (2,000 unit) tablet Take 1 tablet by mouth once daily. - Ascorbic Acid (VITAMIN C) 250 mg chew Take 500 mg by mouth once daily. - multivitamin with minerals (HAIR,SKIN AND NAILS ORAL) Take by mouth once daily. - polyethylene glycol 3350 (MIRALAX, GLYCOLAX) 17 gram/dose powder Use as directed for Miralax / Gatorade Bowel Prep Kit - Gatorade Sports Drink Use as directed for Miralax / Gatorade Bowel Prep Kit - Omeprazole 40 mg capsule Take 40 mg by mouth as needed. - LORazepam (ATIVAN) 1 mg tablet Take 1 tablet by mouth. take one(1) tablet 1 hour before the MRI, and 1 tablet at the time of the MRI if needed - naproxen ( (more content not included)... [facility] 11-22-2021 Note HNO ID: [id number] Author: Rodrigue Mathis PSYD Service: ? Author Type: Psychologist Type: Progress Notes Filed: 11/22/2021 4:59 PM Note Text: [facility]YCHOLOGICAL FOLLOW-UP November 22, 2021 Chanel Prasad CPT Code: 91794 Psychotherapy 53+ minutes Time initiated session: 3:00 PM to 3:57 PM Session #: 32 Collateral Parties Present: none. Due to the federal emergency declaration and the need for ongoing mental health services, the following visit was completed virtually and informed consent obtained orally to reduce the risk of COVID-19 exposure. Oral consent to services related to virtual visits was obtained after information was sent via [employer] or read to patient if MyChart not available. Paitent verified they were at their home at address stated in the medical record. Confidential environment was assured and discussed with patient. Subjective: The patient has been working on the following: Pt stated that since last session she has had several medical needs come up and noted that she has had a wide range of emotions with this. This was processed and pt explored her feelings as something that needed to be fixed vs experiences that accompany hard periods in life. This was processed and pt explored self-judgments related to emotional experiences. Objective: Patient was seen virtually via synchronized teleconfrence The patient was casually attired. She was cooperative with the interview process. The patient had good eye contact. Appearance: Casually dressed Behavior: Behaves appropriately during the encounter Social Relatedness: Good and Appropriate for age and developmental level Speech: The patient demonstrates appropriate tone, prosody, carole, phonetics, and syntax Mood:Anxious/Nervousness Affect: Full and appropriate to topic Thought Content: The patient displays thought content appropriate to the interview. Thought Process:The thought process is appropriate for situation Hallucinations: No perceptual disturbances Delusions: No delusional thinking is evident Suicidal Ideas/Plans: The patient denies suicidal ideation, intent or plan and The patient endorses some nihilistic thinking but no wishes or suicidal thinking Homicidal Ideas/Plans: Patient denies any homicidal ideation, plan or intent at this time. Anxiety: The patient is demonstrating anticipatory anxieties Orientation: Person, Place, Time and Situation Memory: Recent intact, Remote intact and Immediate intact Concentration: Good Attention: The patient demonstrated full attention and focus throughout the interview Fund of Knowledge: Good and Appropriate for age and developmental level Judgment: Demonstrates age appropriate judgment Insight: aware of problem, admits to problem and realizes severity of problem The patient's motivation for treatment was judged to be good. Assessment: No measures available Current Outpatient Medications Medication Sig - gabapentin (NEURONTIN) 600 mg tablet Take 600 mg by mouth three times daily. prn - valACYclovir (VALTREX) 1 gram Take 1,000 mg by mouth once daily. 7 days - traMADol (ULTRAM) 50 mg tablet Take 50 mg by mouth every 6 hours as needed for pain. - budesonide (UCERIS) 9 mg TaDE Take 1 tablet by mouth once daily. - vedolizumab (ENTYVIO) 300 mg injection 300mg IV week 0, week 2, and week 6. - vedolizumab (ENTYVIO) 300 mg injection 300mg Intravenous every 8 weeks. - naproxen sodium (ALEVE) 220 mg tablet Take 220 mg by mouth as needed. uses 3-4 times /month for low back/extremity pain - montelukast (SINGULAIR) 10 mg tablet Take 10 mg by mouth daily at bedtime. - calcium carbonate (TUMS ORAL) Take 1,000 mg by mouth once daily. - acetaminophen (TYLENOL) 325 mg tablet Take 2 tablets by mouth every 4 hours as needed (for pain.). - Fluticasone Furoate 27.5 mcg/actuation nasal spray Use 2 Sprays in each nostril once daily. - inFLIXimab (REMICADE) 100 mg injection Remicade 400mg IV at weeks 0, 2, 6, and every 8 weeks. - predniSONE (DELTASONE) 10 mg tablet Take 2 tablets by mouth once daily. (Patient not taking: Reported on 06/22/2020 ) - hydrocortisone (COLOCORT) 100 mg/60 mL enema Use rectally as directed (Patient not taking: Reported on 06/22/2020 ) - pantoprazole DR (PROTONIX) 40 mg tablet Take 40 mg by mouth once daily. - levothyroxine (SYNTHROID) 50 mcg tablet Take 50 mcg by mouth once daily. - cholecalciferol (VITAMIN D3) 50 mcg (2,000 unit) tablet Take 1 tablet by mouth once daily. - Ascorbic Acid (VITAMIN C) 250 mg chew Take 500 mg by mouth once daily. - multivitamin with minerals (HAIR,SKIN AND NAILS ORAL) Take by mouth once daily. - polyethylene glycol 3350 (MIRALAX, GLYCOLAX) 17 gram/dose powder Use as directed for Miralax / Gatorade Bowel Prep Kit - Gatorade Sports Drink Use as directed for Miralax / Gatorade Bowel Prep Kit - Omeprazole 40 mg capsule Take 40 mg by mouth as needed. - LORazepam (A (more content not included)... [facility] 11-22-2021 History of Present illness Narrative Images from the original note were not included. [facility]-UP November 22, 2021 Chanel Prasad CPT Code: 97203 Psychotherapy 53+ minutes Time initiated session: 3:00 PM to 3:57 PM Session #: 32 Collateral Parties Present: none. Due to the federal emergency declaration and the need for ongoing mental health services, the following visit was completed virtually and informed consent obtained orally to reduce the risk of COVID-19 exposure. Oral consent to services related to virtual visits was obtained after information was sent via [employer] or read to patient if [employer] not available. Paitent verified they were at their home at address stated in the medical record. Confidential environment was assured and discussed with patient. Subjective: The patient has been working on the following: Pt stated that since last session she has had several medical needs come up and noted that she has had a wide range of emotions with this. This was processed and pt explored her feelings as something that needed to be fixed vs experiences that accompany hard periods in life. This was processed and pt explored self-judgments related to emotional experiences. Objective: Patient was seen virtually via synchronized teleconfrence The patient was casually attired. She was cooperative with the interview process. The patient had good eye contact. Appearance: Casually dressed Behavior: Behaves appropriately during the encounter Social Relatedness: Good and Appropriate for age and developmental level Speech: The patient demonstrates appropriate tone, prosody, carole, phonetics, and syntax Mood:Anxious/Nervousness Affect: Full and appropriate to topic Thought Content: The patient displays thought content appropriate to the interview. Thought Process:The thought process is appropriate for situation Hallucinations: No perceptual disturbances Delusions: No delusional thinking is evident Suicidal Ideas/Plans: The patient denies suicidal ideation, intent or plan and The patient endorses some nihilistic thinking but no wishes or suicidal thinking Homicidal Ideas/Plans: Patient denies any homicidal ideation, plan or intent at this time. Anxiety: The patient is demonstrating anticipatory anxieties Orientation: Person, Place, Time and Situation Memory: Recent intact, Remote intact and Immediate intact Concentration: Good Attention: The patient demonstrated full attention and focus throughout the interview Fund of Knowledge: Good and Appropriate for age and developmental level Judgment: Demonstrates age appropriate judgment Insight: aware of problem, admits to problem and realizes severity of problem The patient's motivation for treatment was judged to be good. Assessment: No measures available Current Outpatient Medications Medication Sig gabapentin (NEURONTIN) 600 mg tablet Take 600 mg by mouth three times daily. prn valACYclovir (VALTREX) 1 gram Take 1,000 mg by mouth once daily. 7 days traMADol (ULTRAM) 50 mg tablet Take 50 mg by mouth every 6 hours as needed for pain. budesonide (UCERIS) 9 mg TaDE Take 1 tablet by mouth once daily. vedolizumab (ENTYVIO) 300 mg injection 300mg IV week 0, week 2, and week 6. vedolizumab (ENTYVIO) 300 mg injection 300mg Intravenous every 8 weeks. naproxen sodium (ALEVE) 220 mg tablet Take 220 mg by mouth as needed. uses 3-4 times /month for low back/extremity pain montelukast (SINGULAIR) 10 mg tablet Take 10 mg by mouth daily at bedtime. calcium carbonate (TUMS ORAL) Take 1,000 mg by mouth once daily. acetaminophen (TYLENOL) 325 mg tablet Take 2 tablets by mouth every 4 hours as needed (for pain.). Fluticasone Furoate 27.5 mcg/actuation nasal spray Use 2 Sprays in each nostril once daily. inFLIXimab (REMICADE) 100 mg injection Remicade 400mg IV at weeks 0, 2, 6, and every 8 weeks. predniSONE (DELTASONE) 10 mg tablet Take 2 tablets by mouth once daily. (Patient not taking: Reported on 06/22/2020 ) hydrocortisone (COLOCORT) 100 mg/60 mL enema Use rectally as directed (Patient not taking: Reported on 06/22/2020 ) pantoprazole DR (PROTONIX) 40 mg tablet Take 40 mg by mouth once daily. levothyroxine (SYNTHROID) 50 mcg tablet Take 50 mcg by mouth once daily. cholecalciferol (VITAMIN D3) 50 mcg (2,000 unit) tablet Take 1 tablet by mouth once daily. Ascorbic Acid (VITAMIN C) 250 mg chew Take 500 mg by mouth once daily. multivitamin with minerals (HAIR,SKIN AND NAILS ORAL) Take by mouth once daily. polyethylene glycol 3350 (MIRALAX, GLYCOLAX) 17 gram/dose powder Use as directed for Miralax / Gatorade Bowel Prep Kit Gatorade Sports Drink Use as directed for Miralax / Gatorade Bowel Prep Kit Omeprazole 40 mg capsule Take 40 mg by mouth as needed. LORazepam (ATIVAN) 1 mg tablet Take 1 tablet by mouth. take one(1) tablet 1 hour before the MRI, and 1 tablet at the time of the MRI if needed naproxen (NAPROSYN) 500 mg tablet Take 1 tablet by mouth twice daily as needed (for pain. Take with food.). COMPOUNDED PRESCRIPTION catalyn 2 in AM and one in PM No current facility-administered medications for this visit. Medication Changes: No change in medications Diagnoses: F33.1 Major depressive disorder, recurrent episode, moderate with anxious distress (HCC) F54 Psychological factor affecting physical condition K51.919 Ulcerative colitis with complication, unspecified location (HCC) Plan/Recommendations: 1) The patient may benefit from the following from continued practice with the processes of acceptance and commitment therapy and gut-directed hypnosis 2) PLAN FOR NEXT SESSION: Continue current treatment Expand present- moment awareness Implement exercise regimen Practice relaxation techniques/ biofeedback Number of weeks till next appointment: 1. PATIENT IS OK TO BE CONTACTED BY IBD GI RESEARCH TEAM TO EXPLORE PARTICIPATION IN RESEARCH STUDIES Trainee signature (if applicable): Supervising Licensed Psychologist & Billing Provider: Rodrigue Mathis PSYD documented in this encounter [facility] 11-15-2021 Note HNO ID: [id number] Author: Rodrigue Mathis PSYD Service: ? Author Type: Psychologist Type: Progress Notes Filed: 11/15/2021 4:02 PM Note Text: [facility]YCH[facility] FOLLOW-UP November 15, 2021 Chanel Prasad CPT Code: 28194 Psychotherapy 53+ minutes Time initiated session: 3:03 PM to 3:58 PM Session #: 31 Collateral Parties Present: none. Due to the federal emergency declaration and the need for ongoing mental health services, the following visit was completed virtually and informed consent obtained orally to reduce the risk of COVID-19 exposure. Oral consent to services related to virtual visits was obtained after information was sent via Whois or read to patient if MyChart not available. Paitent verified they were at their home at address stated in the medical record. Confidential environment was assured and discussed with patient. Subjective: The patient has been working on the following: Pt stated that since last visit she had several Drs.' appointments and that she felt upset by the appointments. This was processed and pt discussed feelings of inadequacy as a pt and shame. Pt practiced noticing feelings and exploring want to escape form feelings. Pt discussed value of relationship and health to anchor in to present moment and allow for emotions to come and go. Objective: Patient was seen virtually via synchronized teleconfrence The patient was casually attired. She was cooperative with the interview process. The patient had good eye contact. Appearance: Casually dressed Behavior: Behaves appropriately during the encounter Social Relatedness: Good and Appropriate for age and developmental level Speech: The patient demonstrates appropriate tone, prosody, carole, phonetics, and syntax Mood:Euthymic Affect: Full and appropriate to topic Thought Content: The patient displays thought content appropriate to the interview. Thought Process:The thought process is appropriate for situation Hallucinations: No perceptual disturbances Delusions: No delusional thinking is evident Suicidal Ideas/Plans: The patient denies suicidal ideation, intent or plan Homicidal Ideas/Plans: Patient denies any homicidal ideation, plan or intent at this time. Anxiety: The patient is demonstrating anticipatory anxieties Orientation: Person, Place, Time and Situation Memory: Recent intact, Remote intact and Immediate intact Concentration: Good Attention: The patient demonstrated full attention and focus throughout the interview Fund of Knowledge: Good and Appropriate for age and developmental level Judgment: Demonstrates age appropriate judgment Insight: aware of problem, admits to problem and realizes severity of problem The patient's motivation for treatment was judged to be good. Assessment: No measures avialable Current Outpatient Medications Medication Sig - gabapentin (NEURONTIN) 600 mg tablet Take 600 mg by mouth three times daily. prn - valACYclovir (VALTREX) 1 gram Take 1,000 mg by mouth once daily. 7 days - traMADol (ULTRAM) 50 mg tablet Take 50 mg by mouth every 6 hours as needed for pain. - budesonide (UCERIS) 9 mg TaDE Take 1 tablet by mouth once daily. - vedolizumab (ENTYVIO) 300 mg injection 300mg IV week 0, week 2, and week 6. - vedolizumab (ENTYVIO) 300 mg injection 300mg Intravenous every 8 weeks. - naproxen sodium (ALEVE) 220 mg tablet Take 220 mg by mouth as needed. uses 3-4 times /month for low back/extremity pain - montelukast (SINGULAIR) 10 mg tablet Take 10 mg by mouth daily at bedtime. - calcium carbonate (TUMS ORAL) Take 1,000 mg by mouth once daily. - acetaminophen (TYLENOL) 325 mg tablet Take 2 tablets by mouth every 4 hours as needed (for pain.). - Fluticasone Furoate 27.5 mcg/actuation nasal spray Use 2 Sprays in each nostril once daily. - inFLIXimab (REMICADE) 100 mg injection Remicade 400mg IV at weeks 0, 2, 6, and every 8 weeks. - predniSONE (DELTASONE) 10 mg tablet Take 2 tablets by mouth once daily. (Patient not taking: Reported on 06/22/2020 ) - hydrocortisone (COLOCORT) 100 mg/60 mL enema Use rectally as directed (Patient not taking: Reported on 06/22/2020 ) - pantoprazole DR (PROTONIX) 40 mg tablet Take 40 mg by mouth once daily. - levothyroxine (SYNTHROID) 50 mcg tablet Take 50 mcg by mouth once daily. - cholecalciferol (VITAMIN D3) 50 mcg (2,000 unit) tablet Take 1 tablet by mouth once daily. - Ascorbic Acid (VITAMIN C) 250 mg chew Take 500 mg by mouth once daily. - multivitamin with minerals (HAIR,SKIN AND NAILS ORAL) Take by mouth once daily. - polyethylene glycol 3350 (MIRALAX, GLYCOLAX) 17 gram/dose powder Use as directed for Miralax / Gatorade Bowel Prep Kit - Gatorade Sports Drink Use as directed for Miralax / Gatorade Bowel Prep Kit - Omeprazole 40 mg capsule Take 40 mg by mouth as needed. - LORazepam (ATIVAN) 1 mg tablet Take 1 tablet by mouth. take one(1) tablet 1 hour before the (more content not included)... [facility] 11-15-2021 Note HNO ID: [id number] Author: Jose Manuel Bell MD Service: ? Author Type: Physician Type: Progress Notes Filed: 11/15/2021 11:47 AM Note Text: Virtual visit, 20 minutes, patient agreed ? 61 yo with left-sided ulcerative colitis. Did not tolerate 5ASA or Infliximab. Now on Entyvio for about one year, having 5 bm daily with some bleeding.. Each Entyvio infusion helps for a short period of time. Also with mild incontinence. Feels that stress is contributing to sx and has been getting very effective treatment with Dr. Trinidad Mathis. Needs to skip meals to minimize diarrheall episodes. Has consulted with Kendall Demarco in the past. Will not pursue an appeal for the Uceris. ? [facility] colitis - will continue current therapy and ask Kendall Demarco to reconsult. ? Jose Manuel Bell MD ? [facility] 11-15-2021 History of Present illness Narrative Virtual visit, 20 minutes, patient agreed 61 yo with left-sided ulcerative colitis. Did not tolerate 5ASA or Infliximab. Now on Entyvio for about one year, having 5 bm daily with some bleeding.. Each Entyvio infusion helps for a short period of time. Also with mild incontinence. Feels that stress is contributing to sx and has been getting very effective treatment with Dr. Trinidad Mathis. Needs to skip meals to minimize diarrheall episodes. Has consulted with Kendall Demarco in the past. Will not pursue an appeal for the Uceris. [facility] colitis - will continue current therapy and ask Kendall Demarco to reconsult. Jose Manuel Bell MD documented in this encounter [facility] 11-08-2021 Note HNO ID: [id number] Author: Rodrigue Mathis PSYD Service: ? Author Type: Psychologist Type: Progress Notes Filed: 11/08/2021 3:05 PM Note Text: [facility]YCHOLOGICAL FOLLOW-UP November 08, 2021 Chanel Prasad CPT Code: 70948 Psychotherapy 53+ minutes Time initiated session: 2:04 PM to 2:57 PM Session #: 30 Collateral Parties Present: none. Due to the federal emergency declaration and the need for ongoing mental health services, the following visit was completed virtually and informed consent obtained orally to reduce the risk of COVID-19 exposure. Oral consent to services related to virtual visits was obtained after information was sent via Whois or read to patient if [employer] not available. Paitent verified they were at their home at address stated in the medical record. Confidential environment was assured and discussed with patient. Subjective: The patient has been working on the following: committed action, values clarification, gut-directed hypnosis, acceptance, and values clarifciation Pt stated that since last session she has been thinking about her value of relationships and this was explored. The effects of past trauma and the presence of colitis symptoms was discussed and how they effect her ability to further explore relationships. Pt discussed being able to make medical appointments and was offered praise to reinforce engagement with the medical team. Objective: Patient was seen virtually via synchronized teleconfrence The patient was casually attired. She was cooperative with the interview process. The patient had good eye contact. Appearance: Casually dressed Behavior: Behaves appropriately during the encounter Social Relatedness: Good and Appropriate for age and developmental level Speech: The patient demonstrates appropriate tone, prosody, carole, phonetics, and syntax Mood:Anxious/Nervousness Affect: Full and appropriate to topic Thought Content: The patient endorses somatic preoccupations. Thought Process:The thought process is appropriate for situation Hallucinations: No perceptual disturbances Delusions: No delusional thinking is evident Suicidal Ideas/Plans: The patient denies suicidal ideation, intent or plan Homicidal Ideas/Plans: Patient denies any homicidal ideation, plan or intent at this time. Anxiety: The patient is demonstrating anticipatory anxieties Orientation: Person, Place, Time and Situation Memory: Recent intact, Remote intact and Immediate intact Concentration: Good Attention: The patient demonstrated full attention and focus throughout the interview Fund of Knowledge: Good and Appropriate for age and developmental level Judgment: Demonstrates age appropriate judgment Insight: aware of problem, admits to problem and realizes severity of problem The patient's motivation for treatment was judged to be good. Assessment: No measrues available Current Outpatient Medications Medication Sig - gabapentin (NEURONTIN) 600 mg tablet Take 600 mg by mouth three times daily. prn - valACYclovir (VALTREX) 1 gram Take 1,000 mg by mouth once daily. 7 days - traMADol (ULTRAM) 50 mg tablet Take 50 mg by mouth every 6 hours as needed for pain. - budesonide (UCERIS) 9 mg TaDE Take 1 tablet by mouth once daily. - vedolizumab (ENTYVIO) 300 mg injection 300mg IV week 0, week 2, and week 6. - vedolizumab (ENTYVIO) 300 mg injection 300mg Intravenous every 8 weeks. - naproxen sodium (ALEVE) 220 mg tablet Take 220 mg by mouth as needed. uses 3-4 times /month for low back/extremity pain - montelukast (SINGULAIR) 10 mg tablet Take 10 mg by mouth daily at bedtime. - calcium carbonate (TUMS ORAL) Take 1,000 mg by mouth once daily. - acetaminophen (TYLENOL) 325 mg tablet Take 2 tablets by mouth every 4 hours as needed (for pain.). - Fluticasone Furoate 27.5 mcg/actuation nasal spray Use 2 Sprays in each nostril once daily. - inFLIXimab (REMICADE) 100 mg injection Remicade 400mg IV at weeks 0, 2, 6, and every 8 weeks. - predniSONE (DELTASONE) 10 mg tablet Take 2 tablets by mouth once daily. (Patient not taking: Reported on 06/22/2020 ) - hydrocortisone (COLOCORT) 100 mg/60 mL enema Use rectally as directed (Patient not taking: Reported on 06/22/2020 ) - pantoprazole DR (PROTONIX) 40 mg tablet Take 40 mg by mouth once daily. - levothyroxine (SYNTHROID) 50 mcg tablet Take 50 mcg by mouth once daily. - cholecalciferol (VITAMIN D3) 50 mcg (2,000 unit) tablet Take 1 tablet by mouth once daily. - Ascorbic Acid (VITAMIN C) 250 mg chew Take 500 mg by mouth once daily. - multivitamin with minerals (HAIR,SKIN AND NAILS ORAL) Take by mouth once daily. - polyethylene glycol 3350 (MIRALAX, GLYCOLAX) 17 gram/dose powder Use as directed for Miralax / Gatorade Bowel Prep Kit - Gatorade Sports Drink Use as directed for Miralax / Gatorade Bowel Prep Kit - Omeprazole 40 mg capsule Take 40 mg by mouth as needed. - Aida (more content not included)... [facility] 11-02-2021 Note HNO ID: [id number] Author: Rodrigue Mathis PSYD Service: ? Author Type: Psychologist Type: Progress Notes Filed: 11/02/2021 10:31 AM Note Text: [facility] PSYCHOLOGICAL FOLLOW-UP November 02, 2021 Chanel Prasad CPT Code: 88925 Psychotherapy 53+ minutes Time initiated session: 9:00 AM to 10:00 AM Session #: 29 Collateral Parties Present: none. Due to the federal emergency declaration and the need for ongoing mental health services, the following visit was completed virtually and informed consent obtained orally to reduce the risk of COVID-19 exposure. Oral consent to services related to virtual visits was obtained after information was sent via Whois or read to patient if MyChart not available. Paitent verified they were at their home at address stated in the medical record. Confidential environment was assured and discussed with patient. Subjective: The patient has been working on the following: committed action, values clarification, acceptance, cognitive defusion, present moment awareness and [id number] Pt stated that is since last session she has been struggling with medical complaints and getting needs met. This was processed and the role of cognitions and self-judgments were explored in creating fear around getting needs met. Pt practiced self-compassion and cognitive defsuion practices in session. Objective: Patient was seen virtually via synchronized teleconfrence The patient was casually attired. She was cooperative with the interview process. The patient had good eye contact. Appearance: Casually dressed Behavior: Behaves appropriately during the encounter Social Relatedness: Good and Appropriate for age and developmental level Speech: The patient demonstrates appropriate tone, prosody, carole, phonetics, and syntax Mood:Anxious/Nervousness and Tearful Affect: Full and appropriate to topic Thought Content: The patient endorses guilty feelings. Thought Process:The thought process is appropriate for situation Hallucinations: No perceptual disturbances Delusions: No delusional thinking is evident Suicidal Ideas/Plans: The patient denies suicidal ideation, intent or plan Homicidal Ideas/Plans: Patient denies any homicidal ideation, plan or intent at this time. Anxiety: The patient is demonstrating anticipatory anxieties Orientation: Person, Place, Time and Situation Memory: Recent intact, Remote intact and Immediate intact Concentration: Good Attention: The patient demonstrated full attention and focus throughout the interview Fund of Knowledge: Good and Appropriate for age and developmental level Judgment: Demonstrates age appropriate judgment Insight: aware of problem, admits to problem and realizes severity of problem The patient's motivation for treatment was judged to be good. Assessment: No measures avialable Current Outpatient Medications Medication Sig - gabapentin (NEURONTIN) 600 mg tablet Take 600 mg by mouth three times daily. prn - valACYclovir (VALTREX) 1 gram Take 1,000 mg by mouth once daily. 7 days - traMADol (ULTRAM) 50 mg tablet Take 50 mg by mouth every 6 hours as needed for pain. - budesonide (UCERIS) 9 mg TaDE Take 1 tablet by mouth once daily. - vedolizumab (ENTYVIO) 300 mg injection 300mg IV week 0, week 2, and week 6. - vedolizumab (ENTYVIO) 300 mg injection 300mg Intravenous every 8 weeks. - naproxen sodium (ALEVE) 220 mg tablet Take 220 mg by mouth as needed. uses 3-4 times /month for low back/extremity pain - montelukast (SINGULAIR) 10 mg tablet Take 10 mg by mouth daily at bedtime. - calcium carbonate (TUMS ORAL) Take 1,000 mg by mouth once daily. - acetaminophen (TYLENOL) 325 mg tablet Take 2 tablets by mouth every 4 hours as needed (for pain.). - Fluticasone Furoate 27.5 mcg/actuation nasal spray Use 2 Sprays in each nostril once daily. - inFLIXimab (REMICADE) 100 mg injection Remicade 400mg IV at weeks 0, 2, 6, and every 8 weeks. - predniSONE (DELTASONE) 10 mg tablet Take 2 tablets by mouth once daily. (Patient not taking: Reported on 06/22/2020 ) - hydrocortisone (COLOCORT) 100 mg/60 mL enema Use rectally as directed (Patient not taking: Reported on 06/22/2020 ) - pantoprazole DR (PROTONIX) 40 mg tablet Take 40 mg by mouth once daily. - levothyroxine (SYNTHROID) 50 mcg tablet Take 50 mcg by mouth once daily. - cholecalciferol (VITAMIN D3) 50 mcg (2,000 unit) tablet Take 1 tablet by mouth once daily. - Ascorbic Acid (VITAMIN C) 250 mg chew Take 500 mg by mouth once daily. - multivitamin with minerals (HAIR,SKIN AND NAILS ORAL) Take by mouth once daily. - polyethylene glycol 3350 (MIRALAX, GLYCOLAX) 17 gram/dose powder Use as directed for Miralax / Gatorade Bowel Prep Kit - Gatorade Sports Drink Use as directed for Miralax / Gatorade Bowel Prep Kit - Omeprazole 40 mg capsule Take 40 mg by mouth as needed. - LORazepam (ATIVAN) 1 mg tablet Take 1 tablet by mouth. (more content not included)... [facility] 09-28-2021 Note HNO ID: [id number] Author: Rodrigue Mathis PSYD Service: ? Author Type: Psychologist Type: Progress Notes Filed: 10/07/2021 12:35 PM Note Text: [facility]YCHOLOGICAL FOLLOW-UP September 28, 2021 Chanel Prasad CPT Code: 84345 Psychotherapy 38-52 minutes Time initiated session: 11:07 AM to 11:58 AM Session #: 28 Collateral Parties Present: none. Due to the federal emergency declaration and the need for ongoing mental health services, the following visit was completed virtually and informed consent obtained orally to reduce the risk of COVID-19 exposure. Oral consent to services related to virtual visits was obtained after information was sent via Whois or read to patient if [employer] not available. [employer] verified they were at their home at address stated in the medical record. Confidential environment was assured and discussed with patient. Subjective: The patient has been working on the following: committed action, values clarification, acceptance, cognitive defusion, gut-directed hypnosis Pt stated that since last session she has bene engaging in valued behaviors and has been socializing more. Pt discussed value of friends and how memories and thoughts act as barriers to valued behavior. Pt engaged in session 1 of gut-directed hypnosis and the experience was processed. She reported distress of anxious tight feeling in her abdomen of 8/10 prior and 0/10 post. Objective: Patient was seen virtually via synchronized teleconfrence The patient was casually attired. She was cooperative with the interview process. The patient had good eye contact. Appearance: Casually dressed Behavior: Behaves appropriately during the encounter Social Relatedness: Good and Appropriate for age and developmental level Speech: The patient demonstrates appropriate tone, prosody, carole, phonetics, and syntax Mood:Euthymic Affect: Full and appropriate to topic Thought Content: The patient displays thought content appropriate to the interview. Thought Process:The thought process is appropriate for situation Hallucinations: No perceptual disturbances Delusions: No delusional thinking is evident Suicidal Ideas/Plans: The patient denies suicidal ideation, intent or plan Homicidal Ideas/Plans: Patient denies any homicidal ideation, plan or intent at this time. Anxiety: The patient denies and does not appear anxious and The patient is demonstrating trauma related anxiety Orientation: Person, Place, Time and Situation Memory: Recent intact, Remote intact and Immediate intact Concentration: Good Attention: The patient demonstrated full attention and focus throughout the interview Fund of Knowledge: Good and Appropriate for age and developmental level Judgment: Demonstrates age appropriate judgment Insight: aware of problem, admits to problem and realizes severity of problem The patient's motivation for treatment was judged to be good. Assessment: NO measures avialable Current Outpatient Medications Medication Sig - gabapentin (NEURONTIN) 600 mg tablet Take 600 mg by mouth three times daily. prn - valACYclovir (VALTREX) 1 gram Take 1,000 mg by mouth once daily. 7 days - traMADol (ULTRAM) 50 mg tablet Take 50 mg by mouth every 6 hours as needed for pain. - budesonide (UCERIS) 9 mg TaDE Take 1 tablet by mouth once daily. - vedolizumab (ENTYVIO) 300 mg injection 300mg IV week 0, week 2, and week 6. - vedolizumab (ENTYVIO) 300 mg injection 300mg Intravenous every 8 weeks. - naproxen sodium (ALEVE) 220 mg tablet Take 220 mg by mouth as needed. uses 3-4 times /month for low back/extremity pain - montelukast (SINGULAIR) 10 mg tablet Take 10 mg by mouth daily at bedtime. - calcium carbonate (TUMS ORAL) Take 1,000 mg by mouth once daily. - acetaminophen (TYLENOL) 325 mg tablet Take 2 tablets by mouth every 4 hours as needed (for pain.). - Fluticasone Furoate 27.5 mcg/actuation nasal spray Use 2 Sprays in each nostril once daily. - inFLIXimab (REMICADE) 100 mg injection Remicade 400mg IV at weeks 0, 2, 6, and every 8 weeks. - predniSONE (DELTASONE) 10 mg tablet Take 2 tablets by mouth once daily. (Patient not taking: Reported on 06/22/2020 ) - hydrocortisone (COLOCORT) 100 mg/60 mL enema Use rectally as directed (Patient not taking: Reported on 06/22/2020 ) - pantoprazole DR (PROTONIX) 40 mg tablet Take 40 mg by mouth once daily. - levothyroxine (SYNTHROID) 50 mcg tablet Take 50 mcg by mouth once daily. - cholecalciferol (VITAMIN D3) 50 mcg (2,000 unit) tablet Take 1 tablet by mouth once daily. - Ascorbic Acid (VITAMIN C) 250 mg chew Take 500 mg by mouth once daily. - multivitamin with minerals (HAIR,SKIN AND NAILS ORAL) Take by mouth once daily. - polyethylene glycol 3350 (MIRALAX, GLYCOLAX) 17 gram/dose powder Use as directed for Miralax / Gatorade Bowel Prep Kit - Gatorade Sports Drink Use as directed for Miralax / Gatorade Bowel Prep Kit - O (more content not included)... [facility] 09-20-2021 Note HNO ID: [id number] Author: Rodrigue Mathis PSYD Service: ? Author Type: Psychologist Type: Progress Notes Filed: 09/20/2021 3:49 PM Note Text: [facility]YCHOLOGICAL FOLLOW-UP September 20, 2021 Chanel Prasad CPT Code: 04980 Psychotherapy 38-52 minutes Time initiated session: 11:02 AM to 11:50 AM Session #: 27 Collateral Parties Present: none. Due to the federal emergency declaration and the need for ongoing mental health services, the following visit was completed virtually and informed consent obtained orally to reduce the risk of COVID-19 exposure. Oral consent to services related to virtual visits was obtained after information was sent via Whois or read to patient if [employer] not available. [facility] at address stated in the medical record. Confidential environment was assured and discussed with patient. Subjective: The patient has been working on the following: committed action, values clarification, acceptance, cognitive defusion, [id number], and present moment awraeness Pt stated that since last session she has been doing somewhat better and has been working on seeing triggers from past trauma and practicing self-compassion. This was processed and ptnoted this has better made her able to be the grandmother she wants to be. GI psychologist discussed a change in treatment direction at this time to return to pro-parasympathetic nervous system practices and pt agreed that this was the right time to resume these practices. Objective: Patient was seen virtually via synchronized teleconfrence The patient was casually attired. She was cooperative with the interview process. The patient had good eye contact. Appearance: Casually dressed Behavior: Behaves appropriately during the encounter Social Relatedness: Good and Appropriate for age and developmental level Speech: The patient demonstrates appropriate tone, prosody, carole, phonetics, and syntax Mood:Euthymic Affect: Full and appropriate to topic Thought Content: The patient displays thought content appropriate to the interview. Thought Process:The thought process is appropriate for situation Hallucinations: No perceptual disturbances Delusions: No delusional thinking is evident Suicidal Ideas/Plans: The patient denies suicidal ideation, intent or plan Homicidal Ideas/Plans: Patient denies any homicidal ideation, plan or intent at this time. Anxiety: The patient is demonstrating anticipatory anxieties Orientation: Person, Place, Time and Situation Memory: Recent intact, Remote intact and Immediate intact Concentration: Good Attention: The patient demonstrated full attention and focus throughout the interview Fund of Knowledge: Good and Appropriate for age and developmental level Judgment: Demonstrates age appropriate judgment Insight: aware of problem, admits to problem and realizes severity of problem The patient's motivation for treatment was judged to be good. Assessment: No measures avialable Current Outpatient Medications Medication Sig - gabapentin (NEURONTIN) 600 mg tablet Take 600 mg by mouth three times daily. prn - valACYclovir (VALTREX) 1 gram Take 1,000 mg by mouth once daily. 7 days - traMADol (ULTRAM) 50 mg tablet Take 50 mg by mouth every 6 hours as needed for pain. - budesonide (UCERIS) 9 mg TaDE Take 1 tablet by mouth once daily. - vedolizumab (ENTYVIO) 300 mg injection 300mg IV week 0, week 2, and week 6. - vedolizumab (ENTYVIO) 300 mg injection 300mg Intravenous every 8 weeks. - naproxen sodium (ALEVE) 220 mg tablet Take 220 mg by mouth as needed. uses 3-4 times /month for low back/extremity pain - montelukast (SINGULAIR) 10 mg tablet Take 10 mg by mouth daily at bedtime. - calcium carbonate (TUMS ORAL) Take 1,000 mg by mouth once daily. - acetaminophen (TYLENOL) 325 mg tablet Take 2 tablets by mouth every 4 hours as needed (for pain.). - Fluticasone Furoate 27.5 mcg/actuation nasal spray Use 2 Sprays in each nostril once daily. - inFLIXimab (REMICADE) 100 mg injection Remicade 400mg IV at weeks 0, 2, 6, and every 8 weeks. - predniSONE (DELTASONE) 10 mg tablet Take 2 tablets by mouth once daily. (Patient not taking: Reported on 06/22/2020 ) - hydrocortisone (COLOCORT) 100 mg/60 mL enema Use rectally as directed (Patient not taking: Reported on 06/22/2020 ) - pantoprazole DR (PROTONIX) 40 mg tablet Take 40 mg by mouth once daily. - levothyroxine (SYNTHROID) 50 mcg tablet Take 50 mcg by mouth once daily. - cholecalciferol (VITAMIN D3) 50 mcg (2,000 unit) tablet Take 1 tablet by mouth once daily. - Ascorbic Acid (VITAMIN C) 250 mg chew Take 500 mg by mouth once daily. - multivitamin with minerals (HAIR,SKIN AND NAILS ORAL) Take by mouth once daily. - polyethylene glycol 3350 (MIRALAX, GLYCOLAX) 17 gram/dose powder Use as directed for Miralax / Gatorade Bowel Prep Kit - Gatorade Sports Drink Use as di (more content not included)... [facility] 09-14-2021 Note HNO ID: [id number] Author: Rodrigue Mathis PSYD Service: ? Author Type: Psychologist Type: Progress Notes Filed: 09/20/2021 4:15 PM Note Text: [facility] FOLLOW-UP September 14, 2021 Chanel Prasad CPT Code: 75617 Psychotherapy 53+ minutes Time initiated session: 9:00 AM to 9:55 AM Session #: 26 Collateral Parties Present: none. Due to the federal emergency declaration and the need for ongoing mental health services, the following visit was completed virtually and informed consent obtained orally to reduce the risk of COVID-19 exposure. Oral consent to services related to virtual visits was obtained after information was sent via Whois or read to patient if [employer] not available. Paitent verified they were at their home at address stated in the medical record. Confidential environment was assured and discussed with patient. Subjective: The patient has been working on the following: committed action, values clarification, self-compassion, [id number] Pt stated that since last session she has been thinking about triggers for past trauma and observing instead of reacting. This was processed and pt was led to see all past versions of herself as a book and notice that she is reacting to past events as opposed to danger in the moment. This was processed and pt explored the effects of hypervigilance on GI symptoms. Objective: Patient was seen virtually via synchronized teleconfrence The patient was casually attired. She was cooperative with the interview process. The patient had good eye contact. Appearance: Casually dressed Behavior: Behaves appropriately during the encounter Social Relatedness: Good and Appropriate for age and developmental level Speech: The patient demonstrates appropriate tone, prosody, carole, phonetics, and syntax Mood:Anxious/Nervousness and Tearful Affect: Full and appropriate to topic Thought Content: The patient endorses guilty feelings. Thought Process:The thought process is appropriate for situation Hallucinations: No perceptual disturbances Delusions: No delusional thinking is evident Suicidal Ideas/Plans: The patient denies suicidal ideation, intent or plan Homicidal Ideas/Plans: Patient denies any homicidal ideation, plan or intent at this time. Anxiety: The patient is demonstrating trauma related anxiety Orientation: Person, Place, Time and Situation Memory: Recent intact, Remote intact and Immediate intact Concentration: Good Attention: The patient demonstrated full attention and focus throughout the interview Fund of Knowledge: Good and Appropriate for age and developmental level Judgment: Demonstrates age appropriate judgment Insight: aware of problem, admits to problem and realizes severity of problem The patient's motivation for treatment was judged to be good. Assessment: No measures avialable Current Outpatient Medications Medication Sig - gabapentin (NEURONTIN) 600 mg tablet Take 600 mg by mouth three times daily. prn - valACYclovir (VALTREX) 1 gram Take 1,000 mg by mouth once daily. 7 days - traMADol (ULTRAM) 50 mg tablet Take 50 mg by mouth every 6 hours as needed for pain. - budesonide (UCERIS) 9 mg TaDE Take 1 tablet by mouth once daily. - vedolizumab (ENTYVIO) 300 mg injection 300mg IV week 0, week 2, and week 6. - vedolizumab (ENTYVIO) 300 mg injection 300mg Intravenous every 8 weeks. - naproxen sodium (ALEVE) 220 mg tablet Take 220 mg by mouth as needed. uses 3-4 times /month for low back/extremity pain - montelukast (SINGULAIR) 10 mg tablet Take 10 mg by mouth daily at bedtime. - calcium carbonate (TUMS ORAL) Take 1,000 mg by mouth once daily. - acetaminophen (TYLENOL) 325 mg tablet Take 2 tablets by mouth every 4 hours as needed (for pain.). - Fluticasone Furoate 27.5 mcg/actuation nasal spray Use 2 Sprays in each nostril once daily. - inFLIXimab (REMICADE) 100 mg injection Remicade 400mg IV at weeks 0, 2, 6, and every 8 weeks. - predniSONE (DELTASONE) 10 mg tablet Take 2 tablets by mouth once daily. (Patient not taking: Reported on 06/22/2020 ) - hydrocortisone (COLOCORT) 100 mg/60 mL enema Use rectally as directed (Patient not taking: Reported on 06/22/2020 ) - pantoprazole DR (PROTONIX) 40 mg tablet Take 40 mg by mouth once daily. - levothyroxine (SYNTHROID) 50 mcg tablet Take 50 mcg by mouth once daily. - cholecalciferol (VITAMIN D3) 50 mcg (2,000 unit) tablet Take 1 tablet by mouth once daily. - Ascorbic Acid (VITAMIN C) 250 mg chew Take 500 mg by mouth once daily. - multivitamin with minerals (HAIR,SKIN AND NAILS ORAL) Take by mouth once daily. - polyethylene glycol 3350 (MIRALAX, GLYCOLAX) 17 gram/dose powder Use as directed for Miralax / Gatorade Bowel Prep Kit - Gatorade Sports Drink Use as directed for Miralax / Gatorade Bowel Prep Kit - Omeprazole 40 mg capsule Take 40 mg by mouth as needed. - LORazepam (ATIVAN) 1 mg tablet Take 1 t (more content not included)... [facility] 09-03-2021 Note HNO ID: [id number] Author: Rodrigue Mathis PSYD Service: ? Author Type: Psychologist Type: Progress Notes Filed: 09/05/2021 5:35 PM Note Text: [facility]YCH[facility] FOLLOW-UP September 03, 2021 Chanel Prasad CPT Code: 42830 Psychotherapy 53+ minutes Time initiated session: 2:04 PM to 2:57 PM Session #: 25 Collateral Parties Present: none. Due to the federal emergency declaration and the need for ongoing mental health services, the following visit was completed virtually and informed consent obtained orally to reduce the risk of COVID-19 exposure. Oral consent to services related to virtual visits was obtained after information was sent via [employer] or read to patient if MyChart not available. Paitent verified they were at their home at address stated in the medical record. Confidential environment was assured and discussed with patient. Subjective: The patient has been working on the following: committed action, values clarification, acceptance, cognitive defusion, present moment awareness, and [id number] Debbi stated that since last session she has felt more down and has not been around people as much. This was processed and she developed insight in to how trauma from childhood presents in the thoughts that she is not wanted. This was processed as trauma form the past and patient practiced perspective taking in order to develop compassion for self. This was processed and patient was reoriented to values. Objective: Patient was seen virtually via synchronized teleconfrence The patient was casually attired. She was cooperative with the interview process. The patient had good eye contact. Appearance: Casually dressed Behavior: Behaves appropriately during the encounter Social Relatedness: Good and Appropriate for age and developmental level Speech: The patient demonstrates appropriate tone, prosody, carole, phonetics, and syntax Mood:Tearful Affect: Restricted Thought Content: The patient endorses guilty feelings. Thought Process:The thought process is appropriate for situation Hallucinations: No perceptual disturbances Delusions: No delusional thinking is evident Suicidal Ideas/Plans: The patient denies suicidal ideation, intent or plan Homicidal Ideas/Plans: Patient denies any homicidal ideation, plan or intent at this time. Anxiety: The patient is demonstrating trauma related anxiety Orientation: Person, Place, Time and Situation Memory: Recent intact, Remote intact and Immediate intact Concentration: Good Attention: The patient demonstrated full attention and focus throughout the interview Fund of Knowledge: Good and Appropriate for age and developmental level Judgment: Demonstrates age appropriate judgment Insight: aware of problem, admits to problem and realizes severity of problem The patient's motivation for treatment was judged to be good. Assessment: NO measures available Current Outpatient Medications Medication Sig - gabapentin (NEURONTIN) 600 mg tablet Take 600 mg by mouth three times daily. prn - valACYclovir (VALTREX) 1 gram Take 1,000 mg by mouth once daily. 7 days - traMADol (ULTRAM) 50 mg tablet Take 50 mg by mouth every 6 hours as needed for pain. - budesonide (UCERIS) 9 mg TaDE Take 1 tablet by mouth once daily. - vedolizumab (ENTYVIO) 300 mg injection 300mg IV week 0, week 2, and week 6. - vedolizumab (ENTYVIO) 300 mg injection 300mg Intravenous every 8 weeks. - naproxen sodium (ALEVE) 220 mg tablet Take 220 mg by mouth as needed. uses 3-4 times /month for low back/extremity pain - montelukast (SINGULAIR) 10 mg tablet Take 10 mg by mouth daily at bedtime. - calcium carbonate (TUMS ORAL) Take 1,000 mg by mouth once daily. - acetaminophen (TYLENOL) 325 mg tablet Take 2 tablets by mouth every 4 hours as needed (for pain.). - Fluticasone Furoate 27.5 mcg/actuation nasal spray Use 2 Sprays in each nostril once daily. - inFLIXimab (REMICADE) 100 mg injection Remicade 400mg IV at weeks 0, 2, 6, and every 8 weeks. - predniSONE (DELTASONE) 10 mg tablet Take 2 tablets by mouth once daily. (Patient not taking: Reported on 06/22/2020 ) - hydrocortisone (COLOCORT) 100 mg/60 mL enema Use rectally as directed (Patient not taking: Reported on 06/22/2020 ) - pantoprazole DR (PROTONIX) 40 mg tablet Take 40 mg by mouth once daily. - levothyroxine (SYNTHROID) 50 mcg tablet Take 50 mcg by mouth once daily. - cholecalciferol (VITAMIN D3) 50 mcg (2,000 unit) tablet Take 1 tablet by mouth once daily. - Ascorbic Acid (VITAMIN C) 250 mg chew Take 500 mg by mouth once daily. - multivitamin with minerals (HAIR,SKIN AND NAILS ORAL) Take by mouth once daily. - polyethylene glycol 3350 (MIRALAX, GLYCOLAX) 17 gram/dose powder Use as directed for Miralax / Gatorade Bowel Prep Kit - Gatorade Sports Drink Use as directed for Miralax / Gatorade Bowel Prep Kit - Omeprazole 40 mg capsule Take 40 mg by mouth as (more content not included)... [facility] 08-24-2021 Note HNO ID: [id number] Author: Nusrat Jett PSYD Service: ? Author Type: Resident Type: Progress Notes Filed: 08/24/2021 6:07 PM Note Text: Attestation signed by Rodrigue Mathis PSYD at 08/30/2021 12:30 PM I was present with the trainee in person, reviewed care, and provided supervision for the above note. The note was written by a supervisee under my direct supervision and all care discussed. Rodrigue Mathis Psy.D. [place] Licensed Psychologist ([id number]) [place] Licensed Psychologist ([id number]) Director of Behavioral Medicine and Staff, Department of Gastroenterology, Hepatology AND Athletic Equipment Custodian electrolysis operator, [facility] Chanel Prasad 08/24/2021 CPT Code: 49014 group psychotherapy Time initiated session: 1:00 PM to 3:20 PM Session #: 11 Due to the federal emergency declaration and the need for ongoing mental health services, the following visit was completed virtually and informed consent obtained orally to reduce the risk of COVID-19 exposure. Oral consent to services related to virtual visits was obtained after information was sent via Whois or read to patient if [employer] not available. Paitent verified they were at their home at address stated in the medical record. Confidential environment was assured and discussed with patient. Subjective: Group members were led by psychologist and post-doctoral fellow. Therapists checked in with patients and explored common themes of compounded trauma, difficult emotions during doctor?s appointments, and uncertainty about test results/effectiveness of treatments. Patient and therapists discussed the role of acceptance and willingness to come in to contact with difficult inner experiences in service of values. Patients and therapists discussed additional resources for support in between this final group session and the next round of group therapy. Objective: Patient was an active participant. She described some apprehension about this being the final session of group and looking forward to the next round of group therapy. She expressed that feeling supported and not alone in her difficulties has been most helpful. Social Relatedness: Appropriate for age and developmental level Mood: Tearful Affect: Full and appropriate to topic The patient's motivation for treatment was judged to be good. Diagnoses: F33.1 Major depressive disorder, recurrent episode, moderate with anxious distress (HCC) F54 Psychological factor affecting physical condition K51.919 Ulcerative colitis with complication, unspecified location (HCC) Trainee signature (if applicable): Nusrat Jett Psy.D. Supervising Licensed Psychologist AND Billing Provider: Rodrigue Mathis PSYD [facility] 08-17-2021 Note HNO ID: [id number] Author: Nusrat Jett PSYD Service: ? Author Type: Resident Type: Progress Notes Filed: 08/24/2021 11:31 AM Note Text: Attestation signed by Rodrigue Mathis PSYD at 08/24/2021 11:32 AM I was present with the trainee in person, reviewed care, and provided supervision for the above note. The note was written by a supervisee under my direct supervision and all care discussed. Rodrigue Mathis Psy.D. [place] Licensed Psychologist ([id number]) [place] Licensed Psychologist ([id number]) Director of Behavioral Medicine and Staff, Department of Gastroenterology, Hepatology AND Athletic Equipment Custodian electrolysis operator, [facility] Chanel Prasad 08/17/2021 CPT Code: 81479 group psychotherapy Time initiated session: 1:00 PM to 3:00 PM Session #: 10 Due to the federal emergency declaration and the need for ongoing mental health services, the following visit was completed virtually and informed consent obtained orally to reduce the risk of COVID-19 exposure. Oral consent to services related to virtual visits was obtained after information was sent via Who[employer] or read to patient if [employer] not available. Paitent verified they were at their home at address stated in the medical record. Confidential environment was assured and discussed with patient. Subjective: Group members were led by psychologist and post-doctoral fellow. Therapists checked in with patients and explored common themes of self-criticism and expectations of judgement from others, the influence of past childhood experiences on following certain behavioral ?rules?, and the workability of rules (e.g., needing to remain silent instead of voicing concerns or boundaries) in the context of the life one wants to live. Ownership of, willingness to experience, and values-consistent ways to communicate emotions such as fear were discussed. Objective: Patient was an active participant. She reported becoming involved in novel hobbies and taking up journaling. She described an increase in self-compassion and identification of a value of taking care of herself. Social Relatedness: Appropriate for age and developmental level Mood: Tearful Affect: Full and appropriate to topic The patient's motivation for treatment was judged to be good. Diagnoses: F33.1 Major depressive disorder, recurrent episode, moderate with anxious distress (HCC) F54 Psychological factor affecting physical condition K51.919 Ulcerative colitis with complication, unspecified location (HCC) Trainee signature (if applicable): Nusrat Jett Psy.D. Supervising Licensed Psychologist AND Billing Provider: Rodrigue Mathis PSYD [facility] 08-03-2021 Note HNO ID: [id number] Author: Nusrat Jett PSYD Service: ? Author Type: Resident Type: Progress Notes Filed: 08/03/2021 4:08 PM Note Text: Attestation signed by Rodrigue Mathis PSYD at 08/16/2021 8:00 PM I was present with the trainee in person, reviewed care, and provided supervision for the above note. The note was written by a supervisee under my direct supervision and all care discussed. Rodrigue Mathis Psy.D. [place] Licensed Psychologist ([id number]) [place] Licensed Psychologist ([id number]) Director of Behavioral Medicine and Staff, Department of Gastroenterology, Hepatology AND Athletic Equipment Custodian electrolysis operator, [facility] Chanel Prasad 08/03/2021 CPT Code: 61840 group psychotherapy Time initiated session: 1:00 PM to 3:00 PM Session #: 9 Subjective: Group members were led by psychologist and post-doctoral fellow. Therapists checked in with how patients have been over the past week. Themes of uncertainty arose, including the risk of COVID in patients with IBD, effectiveness of medical regiments, and deciding between conflicting values. The current data on COVID/IBD was discussed, and patient shared experiences with one another about trialing various medications. Therapist led discussion on what to do when one encounters feelings of uncertainty, and advocating for oneself and seeking/providing clarifying information with one?s providers was expressed by members to be an important strategy. Objective: Patient was an active participant. She expressed feeling deeply conflicted about attending or not attending a family event, and her ambivalence was processed. Patient reported that avoiding a sense of ?sensory overload? she experiences in crowds and wanting to limit her COVID exposure so that she can be available to help with grandchildren are her primary motivators for not going. She noted simultaneous feelings of feeling isolated and contentment with her current level of social engagement because she ?has to be.? She expressed appreciation for the information she received from other group members about medication management in IBD. Social Relatedness: Appropriate for age and developmental level Mood: Tearful Affect: Full and appropriate to topic The patient's motivation for treatment was judged to be good. Diagnoses: F33.1 Major depressive disorder, recurrent episode, moderate with anxious distress (HCC) F54 Psychological factor affecting physical condition K51.919 Ulcerative colitis with complication, unspecified location ([facility]) Trainee signature (if applicable): Nusrat Jett Psy.D. Supervising Licensed Psychologist AND Billing Provider: Rodrigue Mathis PSYD [facility] 07-31-2021 Note HNO ID: [id number] Author: Rodrigue Mathis PSYD Service: ? Author Type: Psychologist Type: Progress Notes Filed: 07/31/2021 2:55 PM Note Text: [facility]YCHOLOG[facility] FOLLOW-UP July 31, 2021 Chanel Prasad CPT Code: 81507 Psychotherapy 38-52 minutes Time initiated session: 1:03 PM to 1:54 PM Session #: 24 Collateral Parties Present: none. Due to the federal emergency declaration and the need for ongoing mental health services, the following visit was completed virtually and informed consent obtained orally to reduce the risk of COVID-19 exposure. Oral consent to services related to virtual visits was obtained after information was sent via Who[employer] or read to patient if [employer] not available. Paitent verified they were at their home at address stated in the medical record. Confidential environment was assured and discussed with patient. Subjective: The patient has been working on the following: committed action, values exploration, and present moment awareness Paitent stated that since last sessions he has had another family member and this was processed. Grief and loss were discussed and patient explored emotions as a natural part of living. This was processed and patient utilized perspective taking to view self and offer compassion. Objective: Patient was seen virtually via synchronized teleconfrence The patient was casually attired. She was cooperative with the interview process. The patient had good eye contact. Appearance: Casually dressed Behavior: Behaves appropriately during the encounter Social Relatedness: Good and Appropriate for age and developmental level Speech: The patient demonstrates appropriate tone, prosody, carole, phonetics, and syntax Mood:Euthymic Affect: Full and appropriate to topic and dysthymic Thought Content: The patient displays thought content appropriate to the interview. Thought Process:The thought process is appropriate for situation Hallucinations: No perceptual disturbances Delusions: No delusional thinking is evident Suicidal Ideas/Plans: The patient denies suicidal ideation, intent or plan Homicidal Ideas/Plans: Patient denies any homicidal ideation, plan or intent at this time. Anxiety: The patient is demonstrating anticipatory anxieties Orientation: Person, Place, Time and Situation Memory: Recent intact, Remote intact and Immediate intact Concentration: Good Attention: The patient demonstrated full attention and focus throughout the interview Fund of Knowledge: Good and Appropriate for age and developmental level Judgment: Demonstrates age appropriate judgment Insight: aware of problem, admits to problem and realizes severity of problem The patient's motivation for treatment was judged to be good. Assessment: NO measures available Current Outpatient Medications Medication Sig - gabapentin (NEURONTIN) 600 mg tablet Take 600 mg by mouth three times daily. prn - valACYclovir (VALTREX) 1 gram Take 1,000 mg by mouth once daily. 7 days - traMADol (ULTRAM) 50 mg tablet Take 50 mg by mouth every 6 hours as needed for pain. - budesonide (UCERIS) 9 mg TaDE Take 1 tablet by mouth once daily. - vedolizumab (ENTYVIO) 300 mg injection 300mg IV week 0, week 2, and week 6. - vedolizumab (ENTYVIO) 300 mg injection 300mg Intravenous every 8 weeks. - naproxen sodium (ALEVE) 220 mg tablet Take 220 mg by mouth as needed. uses 3-4 times /month for low back/extremity pain - montelukast (SINGULAIR) 10 mg tablet Take 10 mg by mouth daily at bedtime. - calcium carbonate (TUMS ORAL) Take 1,000 mg by mouth once daily. - acetaminophen (TYLENOL) 325 mg tablet Take 2 tablets by mouth every 4 hours as needed (for pain.). - Fluticasone Furoate 27.5 mcg/actuation nasal spray Use 2 Sprays in each nostril once daily. - inFLIXimab (REMICADE) 100 mg injection Remicade 400mg IV at weeks 0, 2, 6, and every 8 weeks. - predniSONE (DELTASONE) 10 mg tablet Take 2 tablets by mouth once daily. (Patient not taking: Reported on 06/22/2020 ) - hydrocortisone (COLOCORT) 100 mg/60 mL enema Use rectally as directed (Patient not taking: Reported on 06/22/2020 ) - pantoprazole DR (PROTONIX) 40 mg tablet Take 40 mg by mouth once daily. - levothyroxine (SYNTHROID) 50 mcg tablet Take 50 mcg by mouth once daily. - cholecalciferol (VITAMIN D3) 50 mcg (2,000 unit) tablet Take 1 tablet by mouth once daily. - Ascorbic Acid (VITAMIN C) 250 mg chew Take 500 mg by mouth once daily. - multivitamin with minerals (HAIR,SKIN AND NAILS ORAL) Take by mouth once daily. - polyethylene glycol 3350 (MIRALAX, GLYCOLAX) 17 gram/dose powder Use as directed for Miralax / Gatorade Bowel Prep Kit - Gatorade Sports Drink Use as directed for Miralax / Gatorade Bowel Prep Kit - Omeprazole 40 mg capsule Take 40 mg by mouth as needed. - LORazepam (ATIVAN) 1 mg tablet Take 1 tablet by mouth. take one(1) tablet 1 hour before the MRI, and 1 (more content not included)... [facility] 07-27-2021 Note HNO ID: [id number] Author: Nusrat Jett PSYD Service: ? Author Type: Resident Type: Progress Notes Filed: 07/27/2021 5:25 PM Note Text: Attestation signed by Rodrigue Mathis PSYD at 07/30/2021 10:22 AM I was present with the trainee in person, reviewed care, and provided supervision for the above note. The note was written by a supervisee under my direct supervision and all care discussed. Rodrigue Mathis Psy.D. [place] Licensed Psychologist ([id number]) [place] Licensed Psychologist ([id number]) Director of Behavioral Medicine and Staff, Department of Gastroenterology, Hepatology AND Athletic Equipment Custodian electrolysis operator, [facility] Chanel Prasad 07/27/2021 CPT Code: 27340 group psychotherapy Time initiated session: 1:00 PM to 3:00 PM Session #: 8 Subjective: Group members were led by psychologist and post-doctoral fellow. Therapists checked in with how patients have been over the past two weeks, for example, with managing holiday activities and pandemic-related events. Several members reported implementing self-care or moving toward goals despite the presence of IBD symptoms and associated distress. The role of values of providing an ?anchor? in the midst of negative internal experiences and ?making room for? these experiences in service of moving toward values was highlighted. Therapists and patients discussed how although worry thoughts cannot be completely eliminated, the relationship with these thoughts can be changed (e.g., not ?buying into? or acting on them) as they persist toward valued directions. Objective: Patient was an active participant. She described feelings of ?missing out? due to attending a wedding in the midst of IBD symptoms. She noted how ?pausing? has been a helpful strategy for her in determining which concerns should and should not be acted on. She expressed a sense of belonging and companionship towards the group. Social Relatedness: Appropriate for age and developmental level Mood: Tearful Affect: Full and appropriate to topic The patient's motivation for treatment was judged to be good. Diagnoses: F33.1 Major depressive disorder, recurrent episode, moderate with anxious distress (HCC) F54 Psychological factor affecting physical condition K51.919 Ulcerative colitis with complication, unspecified location (HCC) Trainee signature (if applicable): Nusrat Jett Psy.D. Supervising Licensed Psychologist AND Billing Provider: Rodrigue Mathis PSYD [facility] 07-26-2021 Note HNO ID: [id number] Author: Rodrigue Mathis PSYD Service: ? Author Type: Psychologist Type: Progress Notes Filed: 07/27/2021 10:28 AM Note Text: [facility] July 26, 2021 Chanel Prasad CPT Code: 64636 Psychotherapy 38-52 minutes Time initiated session: 2:00 PM to 2:48 PM Session #: 23 Collateral Parties Present: none. Due to the federal emergency declaration and the need for ongoing mental health services, the following visit was completed virtually and informed consent obtained orally to reduce the risk of COVID-19 exposure. Oral consent to services related to virtual visits was obtained after information was sent via Whois or read to patient if [employer] not available. Paitent verified they were at their home at address stated in the medical record. Confidential environment was assured and discussed with patient. Subjective: The patient has been working on the following: committed action, acceptance, cognitive defusion, present moment awareness, values clarificaiton Patient stated that since last session she has been working on engagement in valued action and has been navigating stress and grieving for several recent losses. This was processed and patient discussed [id number] and the the normal be and flow of life. Patient engaged in an exercise seeing the down periods in the big picture of life as just part of it and re-orienting to values. Objective: Patient was seen virtually via synchronized teleconfrence The patient was casually attired. She was cooperative with the interview process. The patient had good eye contact. Appearance: Casually dressed Behavior: Behaves appropriately during the encounter Social Relatedness: Good and Appropriate for age and developmental level Speech: The patient demonstrates appropriate tone, prosody, carole, phonetics, and syntax Mood:Euthymic Affect: Full and appropriate to topic Thought Content: The patient displays thought content appropriate to the interview. Thought Process:The thought process is appropriate for situation Hallucinations: No perceptual disturbances Delusions: No delusional thinking is evident Suicidal Ideas/Plans: The patient denies suicidal ideation, intent or plan Homicidal Ideas/Plans: Patient denies any homicidal ideation, plan or intent at this time. Anxiety: The patient denies and does not appear anxious Orientation: Person, Place, Time and Situation Memory: Recent intact, Remote intact and Immediate intact Concentration: Good Attention: The patient demonstrated full attention and focus throughout the interview Fund of Knowledge: Good and Appropriate for age and developmental level Judgment: Demonstrates age appropriate judgment Insight: aware of problem, admits to problem and realizes severity of problem The patient's motivation for treatment was judged to be good. Assessment: No measures avialable Current Outpatient Medications Medication Sig - gabapentin (NEURONTIN) 600 mg tablet Take 600 mg by mouth three times daily. prn - valACYclovir (VALTREX) 1 gram Take 1,000 mg by mouth once daily. 7 days - traMADol (ULTRAM) 50 mg tablet Take 50 mg by mouth every 6 hours as needed for pain. - budesonide (UCERIS) 9 mg TaDE Take 1 tablet by mouth once daily. - vedolizumab (ENTYVIO) 300 mg injection 300mg IV week 0, week 2, and week 6. - vedolizumab (ENTYVIO) 300 mg injection 300mg Intravenous every 8 weeks. - naproxen sodium (ALEVE) 220 mg tablet Take 220 mg by mouth as needed. uses 3-4 times /month for low back/extremity pain - montelukast (SINGULAIR) 10 mg tablet Take 10 mg by mouth daily at bedtime. - calcium carbonate (TUMS ORAL) Take 1,000 mg by mouth once daily. - acetaminophen (TYLENOL) 325 mg tablet Take 2 tablets by mouth every 4 hours as needed (for pain.). - Fluticasone Furoate 27.5 mcg/actuation nasal spray Use 2 Sprays in each nostril once daily. - inFLIXimab (REMICADE) 100 mg injection Remicade 400mg IV at weeks 0, 2, 6, and every 8 weeks. - predniSONE (DELTASONE) 10 mg tablet Take 2 tablets by mouth once daily. (Patient not taking: Reported on 06/22/2020 ) - hydrocortisone (COLOCORT) 100 mg/60 mL enema Use rectally as directed (Patient not taking: Reported on 06/22/2020 ) - pantoprazole DR (PROTONIX) 40 mg tablet Take 40 mg by mouth once daily. - levothyroxine (SYNTHROID) 50 mcg tablet Take 50 mcg by mouth once daily. - cholecalciferol (VITAMIN D3) 50 mcg (2,000 unit) tablet Take 1 tablet by mouth once daily. - Ascorbic Acid (VITAMIN C) 250 mg chew Take 500 mg by mouth once daily. - multivitamin with minerals (HAIR,SKIN AND NAILS ORAL) Take by mouth once daily. - polyethylene glycol 3350 (MIRALAX, GLYCOLAX) 17 gram/dose powder Use as directed for Miralax / Gatorade Bowel Prep Kit - Gatorade Sports Drink Use as directed for Miralax / Gatorade Bowel Prep Kit - Omeprazole 40 mg capsule Take 40 mg by mouth (more content not included)... [facility] 07-06-2021 Note HNO ID: [id number] Author: Nusrat Jett PSYD Service: ? Author Type: Resident Type: Progress Notes Filed: 07/09/2021 2:45 PM Note Text: Attestation signed by Rodrigue Mathis PSYD at 07/09/2021 5:24 PM I was present with the trainee in person, reviewed care, and provided supervision for the above note. The note was written by a supervisee under my direct supervision and all care discussed. Rodrigue Mathis Psy.D. [place] Licensed Psychologist ([id number]) [place] Licensed Psychologist ([id number]) Director of Behavioral Medicine and Staff, Department of Gastroenterology, Hepatology AND Athletic Equipment Custodian electrolysis operator, [facility] July 06, 2021 Chanel Prasad CPT Code: 12202 group psychotherapy Time initiated session: 1:00 PM to 3:00 PM Session #: 7 Subjective: Group members were led by psychologist and post-doctoral fellow. Therapists checked in with how patients have been over the past week. Themes of anxiety, grief, and fear of not meeting the expectations of others during the holidays were discussed. Therapists and patients also discussed the tendency of human beings to try to make sense out of their suffering, and patients shared explanations that result in increased suffering (e.g., I am being punished). Therapists and patients discussed how although these thoughts cannot be completely eliminated, they can be viewed as inner material that shows up alongside them as they regardless persist toward valued directions (e.g., self-care). Objective: Patient was an active participant. She reported pressure to make others happy in her family with her holiday preparations while having insight to know when enough is enough. She grew tearful when discussing loss around the holidays and this being a reminder that she will eventually pass away as well. Social Relatedness: Appropriate for age and developmental level Mood: Tearful Affect: Full and appropriate to topic The patient's motivation for treatment was judged to be good. Diagnoses: F33.1 Major depressive disorder, recurrent episode, moderate with anxious distress (HCC) F54 Psychological factor affecting physical condition K51.919 Ulcerative colitis with complication, unspecified location ([facility]) Trainee signature (if applicable): Nusrat Jett Psy.D. Supervising Licensed Psychologist AND Billing Provider: Rodrigue Mathis PSYD [facility] 06-29-2021 Note HNO ID: [id number] Author: Nusrat Jett PSYD Service: ? Author Type: Resident Type: Progress Notes Filed: 07/09/2021 2:52 PM Note Text: Attestation signed by Rodrigue Mathis PSYD at 07/09/2021 5:12 PM I was present with the trainee in person, reviewed care, and provided supervision for the above note. The note was written by a supervisee under my direct supervision and all care discussed. Rodrigue Mathis Psy.D. [place] Licensed Psychologist ([id number]) [place] Licensed Psychologist ([id number]) Director of Behavioral Medicine and Staff, Department of Gastroenterology, Hepatology AND Athletic Equipment Custodian electrolysis operator, [facility] June 29, 2021 Chanel Prasad CPT Code: 76408 group psychotherapy Time initiated session: 1:00 PM to 3:00 PM Session #: 6 Subjective: Subjective: Group members were led by psychologist and post-doctoral fellow. Therapists checked in with how patients have been over the past week. Themes of fear related to visits to the emergency department, unhelpful interactions with doctors, and attitudes around vulnerability were discussed. Patients discussed ?rules? and labels applied to themselves (e.g., crying is bad, I shouldn?t be a difficult patient). Therapists discussed the self as the observer versus labels and initiated perspective taking. Finally self-blame for illness was discussed and patients were encouraged that they had not ?caused? their own disease. Objective: Patient was an active participant. She reported labeling herself as a crybaby and adaptive aspects to crying were discussed. She expressed relief in hearing that she did not cause her illness. Social Relatedness: Appropriate for age and developmental level Mood: Tearful Affect: Full and appropriate to topic The patient's motivation for treatment was judged to be good. Diagnoses: F33.1 Major depressive disorder, recurrent episode, moderate with anxious distress (HCC) F54 Psychological factor affecting physical condition K51.919 Ulcerative colitis with complication, unspecified location (HCC) Trainee signature (if applicable): Nusrat Jett Psy.D. Supervising Licensed Psychologist AND Billing Provider: Rodrigue Mathis PSYD [facility] 06-29-2021 Note HNO ID: [id number] Author: Rodrigue Mathis PSYD Service: ? Author Type: Psychologist Type: Progress Notes Filed: 07/02/2021 1:45 PM Note Text: [facility] June 29, 2021 Chanel Prasad CPT Code: 70809 Psychotherapy 38-52 minutes Time initiated session: 9:06 AM to 10:00 AM Session #: 22 Collateral Parties Present: none. Due to the federal emergency declaration and the need for ongoing mental health services, the following visit was completed virtually and informed consent obtained orally to reduce the risk of COVID-19 exposure. Oral consent to services related to virtual visits was obtained after information was sent via Whois or read to patient if [employer] not available. Paitent verified they were at their home at address stated in the medical record. Confidential environment was assured and discussed with patient. Subjective: The patient has been working on the following: committed action, values clarification, acceptance, [id number], present moment awareness, and cognitive defusion Patient stated that since last session she has been dealing with the stress of her Son-in-law having a heart attack and the guilt of not being able to help as much as she wants. This was processed and patient discussed long-term patterns of behavior and their effects on her body. She also explored thoughts vs experience and what she has been able to do vs what her mind says she can do. This was processed. Objective: Patient was seen virtually via synchronized teleconfrence The patient was casually attired. She was cooperative with the interview process. The patient had good eye contact. Appearance: Casually dressed Behavior: Behaves appropriately during the encounter Social Relatedness: Good and Appropriate for age and developmental level Speech: The patient demonstrates appropriate tone, prosody, carole, phonetics, and syntax Mood:Anxious/Nervousness Affect: Full and appropriate to topic Thought Content: The patient endorses guilty feelings. Thought Process:The thought process is appropriate for situation Hallucinations: No perceptual disturbances Delusions: No delusional thinking is evident Suicidal Ideas/Plans: The patient denies suicidal ideation, intent or plan Homicidal Ideas/Plans: Patient denies any homicidal ideation, plan or intent at this time. Anxiety: The patient is demonstrating anticipatory anxieties Orientation: Person, Place, Time and Situation Memory: Recent intact, Remote intact and Immediate intact Concentration: Good Attention: The patient demonstrated full attention and focus throughout the interview Fund of Knowledge: Good and Appropriate for age and developmental level Judgment: Demonstrates age appropriate judgment Insight: aware of problem, admits to problem and realizes severity of problem The patient's motivation for treatment was judged to be good. Assessment: NO measures avialble Current Outpatient Medications Medication Sig - gabapentin (NEURONTIN) 600 mg tablet Take 600 mg by mouth three times daily. prn - valACYclovir (VALTREX) 1 gram Take 1,000 mg by mouth once daily. 7 days - traMADol (ULTRAM) 50 mg tablet Take 50 mg by mouth every 6 hours as needed for pain. - budesonide (UCERIS) 9 mg TaDE Take 1 tablet by mouth once daily. - vedolizumab (ENTYVIO) 300 mg injection 300mg IV week 0, week 2, and week 6. - vedolizumab (ENTYVIO) 300 mg injection 300mg Intravenous every 8 weeks. - naproxen sodium (ALEVE) 220 mg tablet Take 220 mg by mouth as needed. uses 3-4 times /month for low back/extremity pain - montelukast (SINGULAIR) 10 mg tablet Take 10 mg by mouth daily at bedtime. - calcium carbonate (TUMS ORAL) Take 1,000 mg by mouth once daily. - acetaminophen (TYLENOL) 325 mg tablet Take 2 tablets by mouth every 4 hours as needed (for pain.). - Fluticasone Furoate 27.5 mcg/actuation nasal spray Use 2 Sprays in each nostril once daily. - inFLIXimab (REMICADE) 100 mg injection Remicade 400mg IV at weeks 0, 2, 6, and every 8 weeks. - predniSONE (DELTASONE) 10 mg tablet Take 2 tablets by mouth once daily. (Patient not taking: Reported on 06/22/2020 ) - hydrocortisone (COLOCORT) 100 mg/60 mL enema Use rectally as directed (Patient not taking: Reported on 06/22/2020 ) - pantoprazole DR (PROTONIX) 40 mg tablet Take 40 mg by mouth once daily. - levothyroxine (SYNTHROID) 50 mcg tablet Take 50 mcg by mouth once daily. - cholecalciferol (VITAMIN D3) 50 mcg (2,000 unit) tablet Take 1 tablet by mouth once daily. - Ascorbic Acid (VITAMIN C) 250 mg chew Take 500 mg by mouth once daily. - multivitamin with minerals (HAIR,SKIN AND NAILS ORAL) Take by mouth once daily. - polyethylene glycol 3350 (MIRALAX, GLYCOLAX) 17 gram/dose powder Use as directed for Miralax / Gatorade Bowel Prep Kit - Gatorade Sports Drink Use as directed for Miralax / Gatorade Bowel Prep Kit - Omeprazole 40 m (more content not included)... [facility] 06-25-2021 Note HNO ID: [id number] Author: Nusrat Jett PSYD Service: ? Author Type: Resident Type: Progress Notes Filed: 06/25/2021 7:07 PM Note Text: Attestation signed by Rodrigue Mathis PSYD at 06/26/2021 7:36 PM I was present with the trainee in person, reviewed care, and provided supervision for the above note. The note was written by a supervisee under my direct supervision and all care discussed. Teodoro Cross.Sp. [place] Licensed Psychologist ([id number]) [place] Licensed Psychologist ([id number]) Director of Behavioral Medicine and Staff, Department of Gastroenterology, Hepatology AND Athletic Equipment Custodian electrolysis operator, [facility] June 22, 2021 Chanel Prasad CPT Code: 07610 group psychotherapy Time initiated session: 1:00 PM to 3:00 PM Session #: 5 Subjective: Group members were led by psychologist and post-doctoral fellow. Therapists checked in with how patients have been over the past week. Themes of fear related to social events such as holiday gatherings and reintegrating valued activities into one's life were discussed. Patients supported one another in their confrontation of desired activities through sharing experiences and implementing humor. Therapists and patients discussed the concept of decision making based on reasons that vary day to day versus choosing regardless of reasons. Patients discussed the reasons they apply to themselves to explain their behavior and outcomes in life and where these reasons led with regard to the direction of their values. Patient was an active participant. She described using mindfulness to manage her condition during the holidays. She expressed concern about pelvic pain and sought out experiences from other members who have had this symptom. Objective: ? ? Patient was seen?virtually.? The patient was?casually attired.? Social Relatedness:?Appropriate for age and developmental level Mood:?Tearful Affect:?Full and appropriate to topic The patient's motivation for treatment was judged to be?good. ? ? Diagnoses: ?F33.1?Major depressive disorder, recurrent episode, moderate with anxious distress (HCC) F54?Psychological factor affecting physical condition K51.919?Ulcerative colitis with complication, unspecified location (HCC)? ? Trainee signature (if applicable): ? Nusrat Jett Psy.D. ? ? Supervising Licensed Psychologist AND Billing Provider: ? ? Rodrigue Mathis PSYD [facility] 06-11-2021 Note HNO ID: [id number] Author: Rodrigue Mathis PSYD Service: ? Author Type: Psychologist Type: Progress Notes Filed: 06/19/2021 2:23 PM Note Text: [facility] June 11, 2021 Chanel Prasad CPT Code: 55654 Psychotherapy 38-52 minutes Time initiated session: 5:57 PM to 6:35 PM Session #: 21 Collateral Parties Present: none. Due to the federal emergency declaration and the need for ongoing mental health services, the following visit was completed virtually and informed consent obtained orally to reduce the risk of COVID-19 exposure. Oral consent to services related to virtual visits was obtained after information was sent via Whois or read to patient if [employer] not available. Paitent verified they were at their home at address stated in the medical record. Confidential environment was assured and discussed with patient. Subjective: The patient has been working on the following: Committed action, values exploration, acceptance, present moment awareness, and [id number] Patient stated that since last session she has been engaged in several activities including going to the store and this was processed. Patient discussed balance of engaging in family behavior and resting and this was processed through the lens of values. Patient practiced grounding in the room and this was discussed. Objective: Patient was seen virtually via synchronized teleconfrence The patient was casually attired. She was cooperative with the interview process. The patient had good eye contact. Appearance: Casually dressed Behavior: Behaves appropriately during the encounter Social Relatedness: Good and Appropriate for age and developmental level Speech: The patient demonstrates appropriate tone, prosody, carole, phonetics, and syntax Mood:Euthymic Affect: Full and appropriate to topic Thought Content: The patient endorses somatic preoccupations. Thought Process:The thought process is appropriate for situation Hallucinations: No perceptual disturbances Delusions: No delusional thinking is evident Suicidal Ideas/Plans: The patient denies suicidal ideation, intent or plan Homicidal Ideas/Plans: Patient denies any homicidal ideation, plan or intent at this time. Anxiety: The patient is demonstrating anticipatory anxieties Orientation: Person, Place, Time and Situation Memory: Recent intact, Remote intact and Immediate intact Concentration: Good Attention: The patient demonstrated full attention and focus throughout the interview Fund of Knowledge: Good and Appropriate for age and developmental level Judgment: Demonstrates age appropriate judgment Insight: aware of problem, admits to problem and realizes severity of problem The patient's motivation for treatment was judged to be good. Assessment: No measures avialable Current Outpatient Medications Medication Sig - gabapentin (NEURONTIN) 600 mg tablet Take 600 mg by mouth three times daily. prn - valACYclovir (VALTREX) 1 gram Take 1,000 mg by mouth once daily. 7 days - traMADol (ULTRAM) 50 mg tablet Take 50 mg by mouth every 6 hours as needed for pain. - budesonide (UCERIS) 9 mg TaDE Take 1 tablet by mouth once daily. - vedolizumab (ENTYVIO) 300 mg injection 300mg IV week 0, week 2, and week 6. - vedolizumab (ENTYVIO) 300 mg injection 300mg Intravenous every 8 weeks. - naproxen sodium (ALEVE) 220 mg tablet Take 220 mg by mouth as needed. uses 3-4 times /month for low back/extremity pain - montelukast (SINGULAIR) 10 mg tablet Take 10 mg by mouth daily at bedtime. - calcium carbonate (TUMS ORAL) Take 1,000 mg by mouth once daily. - acetaminophen (TYLENOL) 325 mg tablet Take 2 tablets by mouth every 4 hours as needed (for pain.). - Fluticasone Furoate 27.5 mcg/actuation nasal spray Use 2 Sprays in each nostril once daily. - inFLIXimab (REMICADE) 100 mg injection Remicade 400mg IV at weeks 0, 2, 6, and every 8 weeks. - predniSONE (DELTASONE) 10 mg tablet Take 2 tablets by mouth once daily. (Patient not taking: Reported on 06/22/2020 ) - hydrocortisone (COLOCORT) 100 mg/60 mL enema Use rectally as directed (Patient not taking: Reported on 06/22/2020 ) - pantoprazole DR (PROTONIX) 40 mg tablet Take 40 mg by mouth once daily. - levothyroxine (SYNTHROID) 50 mcg tablet Take 50 mcg by mouth once daily. - cholecalciferol (VITAMIN D3) 50 mcg (2,000 unit) tablet Take 1 tablet by mouth once daily. - Ascorbic Acid (VITAMIN C) 250 mg chew Take 500 mg by mouth once daily. - multivitamin with minerals (HAIR,SKIN AND NAILS ORAL) Take by mouth once daily. - polyethylene glycol 3350 (MIRALAX, GLYCOLAX) 17 gram/dose powder Use as directed for Miralax / Gatorade Bowel Prep Kit - Gatorade Sports Drink Use as directed for Miralax / Gatorade Bowel Prep Kit - Omeprazole 40 mg capsule Take 40 mg by mouth as needed. - LORazepam (ATIVAN) 1 mg tablet Take 1 tablet by mouth. take one(1) tablet (more content not included)... [facility] 06-08-2021 Note HNO ID: [id number] Author: Nusrat Jett PSYD Service: ? Author Type: Resident Type: Progress Notes Filed: 06/25/2021 1:14 PM Note Text: Attestation signed by Rodrigue Mathis PSYD at 06/25/2021 1:14 PM I was present with the trainee in person, reviewed care, and provided supervision for the above note. The note was written by a supervisee under my direct supervision and all care discussed. Rodrigue Mathis Psy.D. [place] Licensed Psychologist ([id number]) [place] Licensed Psychologist ([id number]) Director of Behavioral Medicine and Staff, Department of Gastroenterology, Hepatology AND Athletic Equipment Custodian electrolysis operator, [facility] June 08, 2021 Chanel Prasad? CPT Code:?03775 group psychotherapy Time initiated session:?1:00?PM?to?3:00?PM??? Session #:?4 ??? Due to the [facility] and [facility] and the need for ongoing mental health services, the following visit was completed virtually to reduce the risk of COVID-19 exposure. ?Consent related to virtual visits was provided verbally after information was sent via Whois or read to patient if [employer] not available. ? Patient?verified they were at their home at address stated in the medical record. Confidential environment was assured and discussed with patient.? Subjective:?Group members were led by psychologist and post-doctoral fellow. Therapists checked in with how patients have been over the past week. Themes of shame, forcing oneself to act normal around others, and living one's life in the face of fear, shame, and worry were discussed. Therapists and patients discussed the concept of mindfulness and the utility of being mindfully aware of one's inner experiences to recognize them as such and open oneself up to less restricted behaviors. Therapist engaged patients in a physicalizing exercise in which they visualized stress related to a recent event. ? ? Patient reported that she went to the store despite her faer of accidents and that she accomplished buying something for herself. She expressed that the physicalizing exercise was helpful for her and seemed to make her negative feeling less threatening. ? ? Objective: ? ? Patient was seen?virtually.? The patient was?casually attired.? Social Relatedness:?Appropriate for age and developmental level Mood:?Euthymi Affect:?Full and appropriate to topic The patient's motivation for treatment was judged to be?good. ? ? Diagnoses: ?F33.1?Major depressive disorder, recurrent episode, moderate with anxious distress (HCC) F54?Psychological factor affecting physical condition K51.919?Ulcerative colitis with complication, unspecified location (HCC)? ? Trainee signature (if applicable): ? Nusrat Jett Psy.D. ? ? Supervising Licensed Psychologist AND Billing Provider: ? ? Rodrigue Mathis PSYD [facility] Evaluation note Diagnosis Ulcerative 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 with complication (HCC)- [facility] Diagnosis Ulcerative 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 with complication (HCC) [facility] Diagnosis Onset Date Resolution Status Anxiety chronic Fatigue chronic Multiple sclerosis chronic Vitamin d deficiency chronic Microcalcification of left breast on mammogram acute [facility] Work Phone: Evaluation note* Diagnosis Major depressive disorder, recurrent episode, moderate with anxious distress (HCC)- Primary Psychological factor affecting physical condition Psychic factors associated with diseases classified elsewhere Ulcerative colitis with complication, unspecified location (HCC) [facility] Diagnosis Ulcerative pancolitis with other complication (HCC) [facility] Diagnosis Ulcerative 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 with other complication (HCC)- Primary Defecation urgency 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 Encounter for long-term (current) use of steroids [facility] Diagnosis Onset Date Resolution Status Anxiety chronic Fatigue chronic Multiple sclerosis chronic Vitamin d deficiency chronic Microcalcification of left breast on mammogram acute Hypothyroidism acute Preventative health care acu te B12 deficiency chronic Multiple sclerosis chronic Ulcerative colitis chronic Vitamin d deficiency chronic [facility] Work Phone: Evaluation note* Diagnosis Ulcerative pancolitis with other complication (HCC)- Primary [facility]* Diagnosis Crohn's disease of both small and large intestine with other complication (HCC) documented in this encounter [facility] note* Diagnosis Major depressive disorder, recurrent episode, moderate with anxious distress (HCC)- Primary Psychological factor affecting physical condition Psychic factors associated with diseases classified elsewhere Ulcerative colitis with complication, unspecified location (HCC) documented in this encounter [facility] note* Diagnosis Major depressive disorder, recurrent episode, moderate with anxious distress (HCC)- Primary Psychological factor affecting physical condition Psychic factors associated with diseases classified elsewhere Ulcerative colitis with complication, unspecified location (HCC) documented in this encounter [facility] note* Diagnosis Onset Date Resolution Status Anxiety chronic Fatigue chronic Multiple sclerosis chronic Vitamin d deficiency chronic Microcalcification of left breast on mammogram acute Hypothyroidism acute Preventative health care acu te B12 deficiency chronic Multiple sclerosis chronic Ulcerative colitis chronic Vitamin d deficiency chronic Ulcerative colitis chronic B12 deficiency [facility] Work Phone: Evaluation note* Diagnosis Ulcerative pancolitis with other complication (HCC)- Primary documented in this encounter [facility] note* Diagnosis Major depressive disorder, recurrent episode, moderate with anxious distress (HCC)- Primary Psychological factor affecting physical condition Psychic factors associated with diseases classified elsewhere Ulcerative colitis with complication, unspecified location (HCC) documented in this encounter [facility] note* Diagnosis Ulcerative pancolitis with rectal bleeding (HCC)- Primary documented in this encounter [facility] note* Diagnosis Inflammatory bowel disease- Primary Other and unspecified noninfectious gastroenteritis and colitis documented in this encounter [facility] note* Diagnosis Ulcerative pancolitis with rectal bleeding (HCC)- Primary documented in this encounter [facility] note* Diagnosis Ulcerative pancolitis with other complication (HCC)- Primary documented in this encounter [facility] note* Diagnosis Major depressive disorder, recurrent episode, moderate (HCC)- Primary Major depressive disorder, recurrent episode, moderate Psychological factor affecting physical condition Psychic factors associated with diseases classified elsewhere Ulcerative pancolitis with rectal bleeding (HCC) documented in this encounter [facility] note* Diagnosis Ulcerative pancolitis with complication (HCC)- Primary documented in this encounter [facility] note* Diagnosis Onset Date Resolution Status Hypothyroidism acute Preventative health care acu te B12 deficiency chronic Multiple sclerosis chronic Ulcerative colitis chronic Vitamin d deficiency chronic Ulcerative colitis chronic B12 deficiency chronic Fatigue chronic Ulcerative colitis chronic Diarrhea acute Weakness acute Ulcerative colitis [facility] Work Phone: Evaluation note* Diagnosis Onset Date Resolution Status Microcalcification of left breast on mammogram acute Hypothyroidism acute Preventative health care acu te B12 deficiency chronic Multiple sclerosis chronic Ulcerative colitis chronic Vitamin d deficiency chronic Ulcerative colitis chronic B12 deficiency chronic Fatigue chronic Ulcerative colitis chronic Diarrhea acute Weakness [facility] Work Phone: Evaluation note* Diagnosis Onset Date Resolution Status Microcalcification of left breast on mammogram acute Hypothyroidism acute Preventative health care acu te B12 deficiency chronic Multiple sclerosis chronic Ulcerative colitis chronic Vitamin d deficiency chronic Ulcerative colitis chronic B12 deficiency chronic Fatigue chronic Ulcerative colitis chronic Diarrhea acute Weakness acute Ulcerative colitis [facility] Work Phone: Evaluation note* Diagnosis Ulcerative pancolitis with other complication (HCC)- Primary Abnormal weight loss Loss of [facility] Diagnosis Onset Date Resolution Status B12 deficiency chronic Fatigue chronic Diarrhea acute Weakness [facility] Work Phone: Evaluation note* Diagnosis Onset Date Resolution Status Fatigue chronic Diarrhea acute Weakness acute Ulcerative colitis chronic Clostridium difficile infection resolved Anxiety chronic Fatigue chronic Multiple sclerosis chronic Vitamin d deficiency [facility] Work Phone: Evaluation note* Diagnosis Urinary frequency- Primary Vaginal burning Other specified symptom associated with female genital organs [facility] Diagnosis Onset Date Resolution Status Fatigue chronic Diarrhea acute Weakness acute Ulcerative colitis chronic Clostridium difficile infection resolved Anxiety chronic Fatigue chronic Multiple sclerosis chronic Vitamin d deficiency chronic Fatigue chronic Elevated blood pressure read ing in office without diagnosis of hypertension acute Anxiety and depression chron ic Hypothyroidism chronic Low back pain chronic Ulcerative colitis [facility] Work Phone: Summary Purpose Family History No Family History Records Found Relationship Condition Age at Onset Recorded Date/T rima grandmother Cerebrovascular accident (CVA) Unknown Relationship Condition Age at Onset Recorded Date/T rima Not Specified Anxiety Unknown grandmother Cerebrovascular accident (CVA) Unknown father Alcoholism Unknown sister Alcoholism Unknown Asthma Unknown Factor V Leiden mutation Unknown mother Depression Unknown Cerebrovascular accident (CVA) Unknown Advance Directives No Advanced Directives Records FoundDocuments on File Type Date 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 Advance Directive(s) 02/17/2020 7:08 AM Advance Directive(s) 03/12/2017 10:00 AM Advance Directive(s) 03/06/2017 10:11 AM Advance Directive Response Recorded Date/ Time Living Will Yes October 17, 2020 4:35pm Power of Credentialing Specialist Yes October 17 4:35pm Documents on File Type Date Recorded 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 Advance Directive(s) 02/17/2020 7:08 AM Advance Directive(s) 03/12/2017 10:00 AM Advance Directive(s) 03/06/2017 10:11 AM Advance Directive Response Recorded Date/ Time Name of Medical Power of Credentialing Specialist Alaina Alvarez March 04, 2022 9:53am Living Will No March 19 12:29pm Power of Credentialing Specialist No March 19 12:29pm Advance Directive Response Recorded Date/ Time Name of Medical Power of Credentialing Specialist Alaina Alvarez March 04, 2022 9:53am Living Will No March 19 10:06am Power of Credentialing Specialist No March 19 10:06am Advance Directive Response Recorded Date/ Time Living Will No April 24 9:43am Power of Credentialing Specialist No April 24 9:43am Name of Medical Power of Credentialing Specialist Alaina Alvarez March 04, 2022 9:53am Advance Directive Response Recorded Date/ Time Living Will No April 24 8:43am Power of Credentialing Specialist No April 24 8:43am Name of Medical Power of Credentialing Specialist Alaina Alvarez March 04, 2022 8:53am Chief Complaint and Reason for Visit Chief Complaint B12 inject B12 inject B12 inject SCREENING 5 M FU BIRADS 4 LEFT BREAST Reason for Visit Anxiety Fatigue Multiple sclerosis Vitamin d deficiency Microcalcification of left breast on mammogram Chief Complaint B12 inject B12 inject B12 inject SCREENING 5 M FU BIRADS 4 LEFT BREAST LT BREAST MICROCALCIFICATIONS LT BREAST MICROCALCIFICATIONS Reason for Visit Anxiety Fatigue Multiple sclerosis Vitamin d deficiency Microcalcification of left breast on mammogram Chief Complaint B12 inject B12 inject SCREENING 5 M FU BIRADS 4 LEFT BREAST LT BREAST MICROCALCIFICATIONS LT BREAST MICROCALCIFICATIONS MOLECULAR PATHOLOGIST, EST. CARE - NPP Reason for Visit Anxiety Fatigue Multiple sclerosis Vitamin d deficiency Microcalcification of left breast on mammogram Hypothyroidism Preventative health care B12 deficiency Multiple sclerosis Ulcerative colitis Vitamin d deficiency Chief Complaint SCREENING 5 M FU BIRADS 4 LEFT BREAST LT BREAST MICROCALCIFICATIONS LT BREAST MICROCALCIFICATIONS MOLECULAR PATHOLOGIST, EST. CARE - NPP Cscope B12 inject B12 inject E-ORDER Reason for Visit Anxiety Fatigue Multiple sclerosis Vitamin d deficiency Microcalcification of left breast on mammogram Hypothyroidism Preventative health care B12 deficiency Multiple sclerosis Ulcerative colitis Vitamin d deficiency Ulcerative colitis B12 deficiency Chief Complaint LT BREAST MICROCALCI FICATIONS LT BREAST MICROCALCIFICATIONS MOLECULAR PATHOLOGIST, EST. CARE - NPP Cscope B12 inject B12 inject E-ORDER B12 inject WEAKNESS STOOL DROP OFF Colitis UC FLARE UC FLARE UC FLARE UC FLARE UC FLARE Reason for Visit Hypothyroidism Preventative health care B12 deficiency Multiple sclerosis Ulcerative colitis Vitamin d deficiency Ulcerative colitis B12 deficiency Fatigue Ulcerative colitis Diarrhea Weakness Ulcerative colitis Chief Complaint BIRADS 4 LEFT BREAST LT BREAST MICROCALCIFICATIONS LT BREAST MICROCALCIFICATIONS MOLECULAR PATHOLOGIST, EST. CARE - NPP Cscope B12 inject B12 inject E-ORDER B12 inject WEAKNESS STOOL DROP OFF Colitis UC FLARE Reason for Visit Microcalcification o f left breast on mammogram Hypothyroidism Preventative health care B12 deficiency Multiple sclerosis Ulcerative colitis Vitamin d deficiency Ulcerative colitis B12 deficiency Fatigue Ulcerative colitis Diarrhea Weakness Chief Complaint BIRADS 4 LEFT BREAST LT BREAST MICROCALCIFICATIONS LT BREAST MICROCALCIFICATIONS MOLECULAR PATHOLOGIST, EST. CARE - NPP Cscope B12 inject B12 inject E-ORDER B12 inject WEAKNESS STOOL DROP OFF Colitis UC FLARE UC FLARE Reason for Visit Microcalcification o f left breast on mammogram Hypothyroidism Preventative health care B12 deficiency Multiple sclerosis Ulcerative colitis Vitamin d deficiency Ulcerative colitis B12 deficiency Fatigue Ulcerative colitis Diarrhea Weakness Ulcerative colitis Chief Complaint B12 inject E-ORDER B12 inject WEAKNESS STOOL DROP OFF Colitis UC FLARE UC FLARE UC FLARE UC FLARE UC FLARE UC [facility]ARE E ORDER Reason for Visit B12 deficiency Fatigue Diarrhea Weakness Chief Complaint E-ORDER B12 inject WEAKNESS STOOL DROP OFF Colitis UC FLARE UC FLARE UC FLARE UC FLARE UC FLARE UC [facility]ARE E ORDER 2 WK FU 4 M FU STELARA 390MG Reason for Visit Fatigue Diarrhea Weakness Ulcerative colitis Clostridium difficile infection Anxiety Fatigue Multiple sclerosis Vitamin d deficiency Chief Complaint B12 inject WEAKNESS STOOL DROP OFF Colitis UC FLARE UC FLARE UC FLARE UC FLARE UC FLARE UC FLARE E ORDER 2 WK FU 4 M FU STELARA 390MG B12 inject 6 M FU LABWORK Reason for Visit Fatigue Diarrhea Weakness Ulcerative colitis Clostridium difficile infection Anxiety Fatigue Multiple sclerosis Vitamin d deficiency Fatigue Elevated blood pressure reading in office without diagnosis of hypertension Anxiety and depression Hypothyroidism Low back pain Ulcerative colitis Reason for Referral Specialty Diagnoses / Procedures Referred By Myrna silva Referred To Contact Diagnoses Ulcerative 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 with other complication (HCC) Procedures CONSULT TO TEST PREPARATION TUTOR OFFICE/OUTPATIENT [facility] MDM 60-74 MINUTES Isela Melara APRN.RENEWABLE ENERGY TECHNICIAN [address] [place] [address] Referral ID Status Reason Start Date Expiration Date Visits Requested Visits Authorized [id number] Authorized PCP Requested Referral Auto-Generate d Referral 12/06/2021 12/06/2022 1 1 Specialty Diagnoses / Procedures Referred By Contac t Referred To Contact [facility] Diagnoses Ulcerative 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 with other complication (HCC) Defecation urgency Procedures [facility] ANORECTAL MANOMETRY ANORECTAL MANOMETRY Isela Melara APRN.RENEWABLE ENERGY TECHNICIAN [address] [place] [address] [facility] [place] [address] [place] [address] Referral ID Status Reason Start Date Expiration Date Visits Requested Visits Authorized [id number] Pending Review Auto-Generat ed Referral 12/06/2021 12/06/2022 1 1 Specialty Diagnoses / Procedures Referred By Contac t Referred To Contact [facility] Diagnoses Ulcerative 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 with other complication (HCC) Procedures COLONOSCOPY DIAGNOSTIC COLONOSCOPY FLX DX W/COLLJ SPEC WHEN PFRMD Isela Melara APRN.RENEWABLE ENERGY TECHNICIAN [address] [place] [address] [facility] [address] [place] [address] Referral ID Status Reason Start Date Expiration Date Visits Requested Visits Authorized [id number] Pending Review Auto-Generat ed Referral 12/06/2021 12/06/2022 1 1 Specialty Diagnoses / Procedures Referred By Contac t Referred To Contact Dermatology Diagnoses Ulcerative 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 with other complication (HCC) Procedures CONSULT TO DERMATOLOGY Isela Melara APRN.RENEWABLE ENERGY TECHNICIAN [address] [place] [address] Referral ID Status Reason Start Date Expiration Date Visits Requested Visits Authorized [id number] Ref Not Required PCP Requested Referral 12/06/2021 12/06/2022 1 1 Specialty Diagnoses / Procedures Referred By Contac t Referred To Contact Isela Meng APRN.RENEWABLE ENERGY TECHNICIAN [address] [place] [address] Referral ID Status Reason Start Date Expiration Date V isits Requested Visits Authorized [id number] Pending Review 1 1 Specialty Diagnoses / Procedures Referred By Myrna silva Referred To Contact CT IMAGING Diagnoses Inflammatory bowel disease Procedures CT ENTEROGRAPHY W IVCON CT ABD & PELVIS W/CONTRAST Isela Meng APRN.RENEWABLE ENERGY TECHNICIAN [address] [place] [address] Ct Imaging Referral ID Status Reason Start Date Expiration Date Visits Requested Visits Authorized [id number] Pending Review Auto-Generat ed Referral 03/01/2022 03/31/2023 1 1 Specialty Diagnoses / Procedures Referred By Myrna silva Referred To Contact Diagnoses Ulcerative pancolitis with rectal bleeding (HCC) Isela Meng, MARCI.RENEWABLE ENERGY TECHNICIAN [address] [place] [address] Referral ID Status Reason Start Date Expiration Date Visits Re quested Visits Authorized [id number] Closed 1 1 Medications Administered Section Inactive Administered Medications - up to 3 most recent administrations Medication Order MAR Action Action Date Dose Rate Site diphenhydrAMINE 50 mg injection (BENADRYL) 50 mg, INTRAVENOUS, NEEDED, 1 dose, Starting on Marixa 12/20/21 at 1528, Until Marixa 12/20/21 at 1536, Administer per hypersensitivity/anaphylaxis grading in nursing communication Given 12/20/2021 3:36 PM EDT 50 mg vedolizumab 300 mg in NaCl 0.9% 250 mL (ENTYVIO) 300 mg, INTRAVENOUS, Administer over 30 Minutes, ONCE, 1 dose, On Marixa 12/20/21 at 1530, After the infusion is complete flush with 30 mL of sterile 0.9% Sodium Chloride Injection. Refrigerate. EXP: (24 HR) New Bag/Syringe/Bottle 12/20/2021 3:39 PM EDT 300 mg Inactive Administered Medications - up to 3 most recent administrations Medication Order MAR Action Action Date Dose Rate Site diphenhydrAMINE 50 mg injection (BENADRYL) 50 mg, INTRAVENOUS, NEEDED, 1 dose, Starting on Marixa 02/14/22 at 1422, Until Marixa 02/14/22 at 1435, Administer per hypersensitivity/anaphylaxis grading in nursing communication Given 02/14/2022 2:35 PM EDT 50 mg vedolizumab 300 mg in NaCl 0.9% 250 mL (ENTYVIO) 300 mg, INTRAVENOUS, Administer over 30 Minutes, ONCE, 1 dose, On Marixa 02/14/22 at 1430, After the infusion is complete flush with 30 mL of sterile 0.9% Sodium Chloride Injection. Refrigerate. EXP: (24 HR) New Bag/Syringe/Bottle 02/14/2022 2:50 PM EDT 300 mg Additional Source Comments INFORMATION SOURCE (unrecogn ized section and content) DATE CREATED AUTHOR [facility]03/2019 [facility] DATE CREATED AUTHOR AUTHOR'S ORGANIZ ATION 10/18/2020 [facility] [facility] DATE CREATED AUTHOR AUTHOR'S ORGANIZ ATION 06/02/2022 [facility] DATE CREATED AUTHOR AUTHOR'S ORGANIZ ATION 03/11/2025 [facility] Source Comments (unrecognize d section and content) In the event this informatio n is protected by the Federal Confidentiality of Alcohol and Drug Abuse Patient Records regulations: The Federal rules restrict any use of the information to criminally investigate or prosecute any alcohol or drug abuse patient.[facility] the event this information is protected by the Federal Confidentiality of Alcohol and Drug Abuse Patient Records regulations: The Federal rules restrict any use of the information to criminally investigate or prosecute any alcohol or drug abuse patient.[facility] the event this information is protected by the Federal Confidentiality of Alcohol and Drug Abuse Patient Records regulations: The Federal rules restrict any use of the information to criminally investigate or prosecute any alcohol or drug abuse patient.[facility] the event this information is protected by the Federal Confidentiality of Alcohol and Drug Abuse Patient Records regulations: The Federal rules restrict any use of the information to criminally investigate or prosecute any alcohol or drug abuse patient.[facility] the event this information is protected by the Federal Confidentiality of Alcohol and Drug Abuse Patient Records regulations: The Federal rules restrict any use of the information to criminally investigate or prosecute any alcohol or drug abuse patient.[facility] the event this information is protected by the Federal Confidentiality of Alcohol and Drug Abuse Patient Records regulations: The Federal rules restrict any use of the information to criminally investigate or prosecute any alcohol or drug abuse patient.[facility] the event this information is protected by the Federal Confidentiality of Alcohol and Drug Abuse Patient Records regulations: The Federal rules restrict any use of the information to criminally investigate or prosecute any alcohol or drug abuse patient.[facility] the event this information is protected by the Federal Confidentiality of Alcohol and Drug Abuse Patient Records regulations: The Federal rules restrict any use of the information to criminally investigate or prosecute any alcohol or drug abuse patient.[facility] the event this information is protected by the Federal Confidentiality of Alcohol and Drug Abuse Patient Records regulations: The Federal rules restrict any use of the information to criminally investigate or prosecute any alcohol or drug abuse patient.[facility] the event this information is protected by the Federal Confidentiality of Alcohol and Drug Abuse Patient Records regulations: The Federal rules restrict any use of the information to criminally investigate or prosecute any alcohol or drug abuse patient.[facility]In the event this information is protected by the Federal Confidentiality of Alcohol and Drug Abuse Patient Records regulations: The Federal rules restrict any use of the information to criminally investigate or prosecute any alcohol or drug abuse patient.[facility] the event this information is protected by the Federal Confidentiality of Alcohol and Drug Abuse Patient Records regulations: The Federal rules restrict any use of the information to criminally investigate or prosecute any alcohol or drug abuse patient.[facility] the event this information is protected by the Federal Confidentiality of Alcohol and Drug Abuse Patient Records regulations: The Federal rules restrict any use of the information to criminally investigate or prosecute any alcohol or drug abuse patient.[facility] the event this information is protected by the Federal Confidentiality of Alcohol and Drug Abuse Patient Records regulations: The Federal rules restrict any use of the information to criminally investigate or prosecute any alcohol or drug abuse patient.[facility] the event this information is protected by the Federal Confidentiality of Alcohol and Drug Abuse Patient Records regulations: The Federal rules restrict any use of the information to criminally investigate or prosecute any alcohol or drug abuse patient.[facility]In the event this information is protected by the Federal Confidentiality of Alcohol and Drug Abuse Patient Records regulations: The Federal rules restrict any use of the information to criminally investigate or prosecute any alcohol or drug abuse patient.[facility]In the event this information is protected by the Federal Confidentiality of Alcohol and Drug Abuse Patient Records regulations: The Federal rules restrict any use of the information to criminally investigate or prosecute any alcohol or drug abuse patient.[facility] the event this information is protected by the Federal Confidentiality of Alcohol and Drug Abuse Patient Records regulations: The Federal rules restrict any use of the information to criminally investigate or prosecute any alcohol or drug abuse patient.[facility] the event this information is protected by the Federal Confidentiality of Alcohol and Drug Abuse Patient Records regulations: The Federal rules restrict any use of the information to criminally investigate or prosecute any alcohol or drug abuse patient.[facility]In the event this information is protected by the Federal Confidentiality of Alcohol and Drug Abuse Patient Records regulations: The Federal rules restrict any use of the information to criminally investigate or prosecute any alcohol or drug abuse patient.[facility]In the event this information is protected by the Federal Confidentiality of Alcohol and Drug Abuse Patient Records regulations: The Federal rules restrict any use of the information to criminally investigate or prosecute any alcohol or drug abuse patient.[facility] HospitalIn the event this information is protected by the Federal Confidentiality of Alcohol and Drug Abuse Patient Records regulations: The Federal rules restrict any use of the information to criminally investigate or prosecute any alcohol or drug abuse patient.[facility] HospitalIn the event this information is protected by the Federal Confidentiality of Alcohol and Drug Abuse Patient Records regulations: The Federal rules restrict any use of the information to criminally investigate or prosecute any alcohol or drug abuse patient.[facility] HospitalIn the event this information is protected by the Federal Confidentiality of Alcohol and Drug Abuse Patient Records regulations: The Federal rules restrict any use of the information to criminally investigate or prosecute any alcohol or drug abuse patient.[facility] the event this information is protected by the Federal Confidentiality of Alcohol and Drug Abuse Patient Records regulations: The Federal rules restrict any use of the information to criminally investigate or prosecute any alcohol or drug abuse patient.[facility]In the event this information is protected by the Federal Confidentiality of Alcohol and Drug Abuse Patient Records regulations: The Federal rules restrict any use of the information to criminally investigate or prosecute any alcohol or drug abuse patient.[facility]In the event this information is protected by the Federal Confidentiality of Alcohol and Drug Abuse Patient Records regulations: The Federal rules restrict any use of the information to criminally investigate or prosecute any alcohol or drug abuse patient.[facility]In the event this information is protected by the Federal Confidentiality of Alcohol and Drug Abuse Patient Records regulations: The Federal rules restrict any use of the information to criminally investigate or prosecute any alcohol or drug abuse patient.[facility]In the event this information is protected by the Federal Confidentiality of Alcohol and Drug Abuse Patient Records regulations: The Federal rules restrict any use of the information to criminally investigate or prosecute any alcohol or drug abuse patient.[facility]In the event this information is protected by the Federal Confidentiality of Alcohol and Drug Abuse Patient Records regulations: The Federal rules restrict any use of the information to criminally investigate or prosecute any alcohol or drug abuse patient.[facility]In the event this information is protected by the Federal Confidentiality of Alcohol and Drug Abuse Patient Records regulations: The Federal rules restrict any use of the information to criminally investigate or prosecute any alcohol or drug abuse patient.[facility]In the event this information is protected by the Federal Confidentiality of Alcohol and Drug Abuse Patient Records regulations: The Federal rules restrict any use of the information to criminally investigate or prosecute any alcohol or drug abuse patient.[facility] HospitalIn the event this information is protected by the Federal Confidentiality of Alcohol and Drug Abuse Patient Records regulations: The Federal rules restrict any use of the information to criminally investigate or prosecute any alcohol or drug abuse patient.[facility] Care Teams (unrecognized sec tion and content) Vegetable Tester Relationship Specialty Start Date End Date Alix Zavala MD PCP - General Family Practice 11/15/16 Vegetable Tester Relationship Specialty Start Date End Date Alix Zavala MD PCP - General Family Practice 11/15/16 Vegetable Tester Relationship Specialty Start Date End Date Alix Zavala MD PCP - General Family Practice 11/15/16 Vegetable Tester Relationship Specialty Start Date End Date Alix Zavala MD PCP - General Family Practice 11/15/16 Vegetable Tester Relationship Specialty Start Date End Date lAix Zavala MD PCP - General Family Practice 11/15/16 Vegetable Tester Relationship Specialty Start Date End Date Alix Zavala MD PCP - General Family Practice 11/15/16 Vegetable Tester Relationship Specialty Start Date End Date Alix Zavala MD PCP - General Family Practice 11/15/16 Vegetable Tester Relationship Specialty Start Date End Date Alix Zavala MD PCP - General Family Practice 11/15/16 Vegetable Tester Relationship Specialty Start Date End Date Alix Zavala MD PCP - General Family Practice 11/15/16 Vegetable Tester Relationship Specialty Start Date End Date Alix Zavala MD PCP - General Family Practice 11/15/16 Vegetable Tester Relationship Specialty Start Date End Date Alix Zavala MD PCP - General Family Practice 11/15/16 Vegetable Tester Relationship Specialty Start Date End Date Alix Zavala MD PCP - General Family Practice 11/15/16 Vegetable Tester Relationship Specialty Start Date End Date Ailx Zavala MD PCP - General Family Practice 11/15/16 Vegetable Tester Relationship Specialty Start Date End Date Alix Zavala MD PCP - General Family Practice 11/15/16 Vegetable Tester Relationship Specialty Start Date End Date Alix Zavala MD PCP - General Family Practice 11/15/16 Vegetable Tester Relationship Specialty Start Date End Date Alix Zavala MD PCP - General Family Medicine 11/15/16 Vegetable Tester Relationship Specialty Start Date End Date Alix Zvaala MD PCP - General Family Medicine 11/15/16 Vegetable Tester Relationship Specialty Start Date End Date Alix Zavala MD PCP - General Family Medicine 11/15/16 Vegetable Tester Relationship Specialty Start Date End Date Alix Zavala MD PCP - General Family Medicine 11/15/16 Vegetable Tester Relationship Specialty Start Date End Date Alix Zavala MD PCP - General Family Medicine 11/15/16 Reason for Visit (unrecogniz ed section and content) Reason Comments Ulcerative Colitis Reason Comments Follow Up Reason Comments Nutrition Assessment Reason Comments Appointment Reason Comments Diarrhea Rectal Bleeding Reason Comments Non-Chemotherapy Treatment Specialty Diagnoses / Procedures Referred By Contac t Referred To Contact Diagnoses Ulcerative pancolitis with other complication (HCC) Procedures INJECTION, VEDOLIZUMAB Jose Manuel Bell MD [address] [place] [address] Miguelito Count Includes [facility] [address] [place] [address] Referral ID Status Reason Start Date Expiration Date V isits Requested Visits Authorized [id number] Authorized 02/14/2021 10/25/2021 99 99 Reason Comments Results Appointment Reason Comments Crohns Reason Onset Date Comments Patient Update 01/08/2022 Entyvio Reason Comments Group Psychotherapy Reason Comments IBD Follow Up [facility] Reason Comments Medication Preauthorization Reason Comments Medication Problem Patient Update Reason Comments Patient Question Director Of Academic Support - Other Reason Comments Recheck Reason Comments Medication Problem Reason Comments Urinary Problem Pt reported frequenc y, urgency x5 days. Reason Comments Results Goals (unrecognized section and content) Goals may be documented in a n alternate sectionGoals may be documented in an alternate sectionGoals may be documented in an alternate sectionGoals may be documented in an alternate sectionGoals may be documented in an alternate section FOR RECORDS PERTAINING TO PATIENTS WHO ARE OR HAVE BEEN ENROLLED IN A CHEMICAL DEPENDENCY/SUBSTANCEABUSE PROGRAM, SOME INFORMATION MAY BE OMITTED. This clinical summary was aggregated from multiple sources. Caution should be exercised in using it in the provision of clinical care. This summary normalizes information from multiple sources, and as a consequence, information in this document may materially change the coding, format and clinical context of patient data. In addition, data may be omitted in some cases. CLINICAL DECISIONS SHOULD BE BASED ON THE PRIMARY CLINICAL RECORDS. [employer] provides no warranty or guarantee of the accuracy or completeness of information in this document.
== END | disposition home or self-care (01) ==
LOC: LAB 14:17
PROVIDERS: PCP Family Medicine; Referring Provider Internal Medicine Gastroenterology; Visit Provider Internal Medicine Gastroenterology
DX: D64.9 Anemia, unspecified (principal)
CPT/HCPCS: 36415; 82728; 83540; 85025

== ENCOUNTER → 2025-04-25 | Outpatient (CLI) | payer MEDICARE, SELFPAY ==
[2025-04-25 21:23] LABS: AST(SGOT) 21 U/L (<=31); Alanine Aminotransfer ALT/SGPT 33 U/L (<=34); Albumin, Serum 4.1 g/dL (3.4-4.8); Alkaline Phosphatase 86 U/L (35-104); Anion Gap 13 (5-15); BUN 11 mg/dL (4-19); BUN/Creat Ratio 14.2 RATIO (10-20); Calcium,Total 9.2 mg/dL (7.6-11.0); Carbon Dioxide 25.3 mmol/L (21.0-32.0); Chloride 103 mmol/L (98-108); Globulin 2.3 g/dL (2.2-4.2); Glucose 107 mg/dL (70-99); Potassium 4.3 mmol/L (3.3-5.1)
== END | disposition home or self-care (01) ==
LOC: MTLAB 14:17
PROVIDERS: Internal Medicine Gastroenterology; PCP Family Medicine; Referring Provider Family Medicine; Visit Provider Family Medicine
DX: R19.7 Diarrhea, unspecified (principal); K51.018 Ulcerative (chronic) pancolitis with other complication
CPT/HCPCS: 36415; 80053

== ENCOUNTER → 2025-04-29 | Outpatient (CLI) | payer MEDICARE, SELFPAY ==
--- NOTE | 2025-04-29 09:54 | US_ITS ---
EXAM: US Abdomen Limited, Right Upper Quadrant CLINICAL INDICATION: NAUSEA, ABD DISCOMFORT TECHNIQUE: Real-time ultrasound of the right upper quadrant with image documentation. COMPARISON: No relevant prior studies available. FINDINGS: LIVER: Liver measures up to 15.7 cm. No intrahepatic bile duct dilation. GALLBLADDER: Gallbladder sludge and cholelithiasis. COMMON BILE DUCT: Unremarkable as visualized. No stones. No dilation. Common bile duct measures 0.56 cm in diameter. PANCREAS: Unremarkable as visualized. RIGHT KIDNEY: Unremarkable. No stones. No hydronephrosis. The right kidney measures 10.6 x 4.7 x 4.2 cm. US/Abdomen Limited IMPRESSION: Cholelithiasis and sludge without convincing evidence of acute cholecystitis. If symptoms persist, further evaluation with HIDA scan may be beneficial. Reading Location: [id number]
== END | disposition home or self-care (01) ==
LOC: US 09:52
PROVIDERS: PCP Family Medicine; Referring Provider Internal Medicine Gastroenterology; Visit Provider Internal Medicine Gastroenterology
DX: M62.838 Other muscle spasm (principal); R11.0 Nausea
CPT/HCPCS: 76705

== ENCOUNTER → 2025-05-19 | Outpatient (CLI) | payer MEDICARE, SELFPAY ==
--- NOTE | 2025-05-19 09:06 | NM_ITS ---
PROCEDURE: HEPATOBILLIARY IMAGING 05/19/2025 REASON FOR EXAM: GALLBLADDER SLUDGE TECHNIQUE: Procedure Code: NMHIDA Modality: NM Procedure: HEPATOBILLIARY IMAGING Intravenous Choletec with planar imaging of the abdomen. RADIOPHARMACEUTICAL: Intravenous administration 5.3 mCi technetium 99 M mebrofenin. COMPARISON: Ultrasound exam 04/29/2025. FINDINGS: Satisfactory hepatic uptake and excretion is seen. Through the 2 hour timeframe, nonvisualization of the gallbladder is noted. Small bowel activity is noted by the 15 minute film. NM/Hepatobilliary Imaging IMPRESSION: 1. Nonvisualized gallbladder, through the 2 hour timeframe. This may be presen t in many cases of cholecystitis, although not diagnostic thereof. 2. No evidence of common duct obstruction. Reading Location: [place] [address]
== END | disposition home or self-care (01) ==
LOC: NM 09:03
PROVIDERS: PCP Family Medicine; Referring Provider Internal Medicine Gastroenterology; Visit Provider Internal Medicine Gastroenterology
DX: K82.8 Other specified diseases of gallbladder (principal)
CPT/HCPCS: 78226; A9537

== ENCOUNTER → 2025-05-23 | Outpatient (CLI) | payer MEDICARE, SELFPAY ==
[2025-05-23 18:15] LABS: Ferritin 640 ng/mL (22-378); Free T3 3.2 pg/mL (2.18-3.98)
== END | disposition home or self-care (01) ==
LOC: MFPLAB 13:53
PROVIDERS: PCP Family Medicine; Visit Provider Family Medicine
DX: E03.9 Hypothyroidism, unspecified (principal); R79.89 Other specified abnormal findings of blood chemistry
CPT/HCPCS: 36415; 82728; 84439; 84443; 84481

== ENCOUNTER 2025-06-09 08:53 | Day surgery (SDC) | payer MEDICARE, SELFPAY ==
--- NOTE | 2025-06-04 00:58 | PAT.ANESEVAL ---
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 When Was Last Pacemaker Check QUESTION #4 FULL TEXT: You/Your Family Experience fever (hyperthermia) with Anesthesia Last Oral Intake Last Oral intake: Last Oral Intake NPO since Meds taken in AM with sips of water? Meds patient instructed to take am of surgery PONV PONV - beehive kiln charcoal burner: PONV - beehive kiln charcoal burner Female Yes 06/03/25 13:49 HX of Motion Sickness Yes 06/03/25 13:49 HX of N/V After Surgery Yes 06/03/25 13:49 Non-Smoker Yes 06/03/25 13:49 Duration of Surgery greater No 06/03/25 13:49 than 60 minutes Number of Risk Factors 4 06/03/25 13:49 PONV Score Severe Risk 06/03/25 13:49 Height & Weight Height & Weight: Anesthesia: Height & Weight Height 5 ft 4 in 05/26/25 09:58 Respiratory Assessment Respiratory Assessment - beehive kiln charcoal burner: Respiratory Tract Infection Hx - beehive kiln charcoal burner Hx Respiratory Tract Infection No 06/03/25 13:49 STOP Sleep Apnea STOP Sleep Apnea - beehive kiln charcoal burner: STOP Sleep Apnea - beehive kiln charcoal burner Hx Hypertension No 06/03/25 13:49 Hx Sleep Apnea No 06/03/25 13:49 CPAP No 09/23/24 12:13 BIPAP Do you snore loudly (louder No 06/03/25 13:49 than talking or can be heard Do you often feel tired/ No 06/03/25 13:49 fatigued/ sleepy during daytime? Has anyone observed you stop No 06/03/25 13:49 breathing during sleep? STOP Results Negative 06/03/25 13:49 QUESTION #5 FULL TEXT : Do you snore loudly (louder than talking or can be heard through closed doors)? 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 confused, unrespo /Reproduction History /Reproductive History - beehive kiln charcoal burner: /Reproductive Hx- beehive kiln charcoal burner Hx Now No 06/03/25 13:49 Gestational Age (in weeks): EDC: Hx Hx Para Hx Section SAB No 06/03/25 13:49 Does the father of the baby or his family experience fever w Father of the baby Malignant Hypertension history comment Active Medications Active Medications: Current Medications Generic Name Dose Route Start Last Admin Trade Name Freq PRN Reason Stop Dose Admin Indocyanine Green 3.75 mg/ N/A 1.5 mls @ 999 mls/hr 06/09/25 09:30 IV 06/09/25 09:31 PREOP [facility] Medical History (Updated 06/03/25 @ 14:01 by Alma Mcclain) History of steroid therapy Thyroid disease Colitis Restless legs Multiple sclerosis Wears glasses Low iron Back pain Elevated blood pressure reading in office without diagnosis of hypertension Clostridium difficile infection PONV (postoperative nausea and vomiting) Post-menopausal History of factor V Leiden mutation Dietary restriction Non-smoker B12 deficiency Polycystic ovaries Irritable bowel syndrome Hemorrhoids Home Medications ?Medication ?Instructions ?Recorded ?Last Taken ?Type valacyclovir 500 mg tablet 500 mg PO DAILY PRN Cold Sores 11/22/21 Unknown History (Valtrex) levothyroxine 25 mcg tablet 25 mcg PO DAILY 06/10/22 04/24/23 05:00 History acetaminophen 500 mg capsule 1,000 mg PO TID PRN pain 09/03/22 12/04/23 History diphenoxylate-atropine 2.5 1 tab PO BID PRN diarrhea #30 tabs 10/31/22 Unknown Rx mg-0.025 mg tablet (Lomotil) mecobalamin (vitamin B12) 10,000 10,000 mcg subcut QMONTH 03/15/24 Unknown History mcg solution for injection ustekinumab 90 mg/mL subcutaneous 90 mg subcut Q4W #1 mL 09/03/24 06/01/25 Rx syringe (Stelara) cholecalciferol (vitamin D3) 1,250 1,250 mcg PO QWEEK #4 caps 03/31/25 Unknown Rx mcg (50,000 unit) capsule cyclobenzaprine 5 mg tablet 5 mg PO TID PRN muscle spasm #90 03/31/25 Unknown Rx tabs omeprazole 40 mg capsule,delayed 40 mg PO QHS 06/03/25 Unknown History release Allergy/AdvReac Type Severity Reaction Status Date / Time infliximab (From Remicade) Allergy Severe Anaphylaxis Verified 06/03/25 13:45 zinc Allergy Severe Throwing Verified 06/03/25 13:45 up budesonide Allergy Mild Upset Verified 06/03/25 13:45 Stomach alprazolam Allergy Unknown Other Verified 06/03/25 13:45 hydrocodone (From [place]) Allergy Unknown Other Verified 06/03/25 13:45 dicyclomine Allergy Vomiting Verified 06/03/25 13:45 Lactobacillus rhamnosus GG Allergy boils Verified 06/03/25 13:45 (From [employer] Probiotics) vancomycin Allergy Other Verified 06/03/25 13:45 balsalazide AdvReac Severe GI upset Verified 06/03/25 13:45 and Headache metronidazole (From Flagyl) AdvReac Severe mental Verified 06/03/25 13:45 status changes codeine AdvReac Intermediate Vomiting Verified 06/03/25 13:45 Penicillins AdvReac Mild Itching Verified 06/03/25 13:45 phenazopyridine AdvReac Unknown GI Upset Verified 06/03/25 13:45 azithromycin (From Zithromax AdvReac Vomiting Verified 06/03/25 13:45 Z-Del) mesalamine AdvReac Intolerance Verified 06/03/25 13:45 naproxen (From Naprosyn) AdvReac Other Verified 06/03/25 13:45 Sulfa (Sulfonamide AdvReac Vomiting Verified 06/03/25 13:45 Antibiotics) Family History Grandmother CVA (cerebral vascular accident) Father Alcoholism Sister Alcoholism Asthma Factor V Leiden Mother Depression CVA (cerebral vascular accident) Other Anxiety Surgical History (Updated 06/03/25 @ 14:01 by Alma Mcclain) History of rectal polypectomy History of esophagogastroduodenoscopy (EGD) History of carpal tunnel surgery of left wrist History of hemorrhoidectomy (~10/2018) History of appendectomy History of oophorectomy History of hysterectomy History of colonoscopy (~2016) Social History Smoking Status: Never smoker Electronic Cigarette Use: not used second hand exposure: No alcohol intake: never substance use type: does not use what type of physical activity do you participate in: walking frequency: daily duration: 15-30 minutes/day Audit: Pertinent Findings Pertinent Findings EKG Perinent findings: March 20, 2022. Normal sinus rhythm. Nonspecific ST abnormality Recommendation Anesthesia Recommendation Anesthesia recommendation: OPTIMIZED for anesthesia
[2025-06-09] VITALS (13 sets, daily range): BP systolic 101–143; BP diastolic 60–86; PULSE 89–100; RESP 16–18; TEMP 36–36.7; O2SAT 88–98; BMI 29.7
--- NOTE | 2025-06-09 09:08 | PCM.HP.BLA ---
History and Physical Date of Admission: 06/09/25 Date of Service: 05/26/25 MR#: [id number] Acct: [id number] Name: CHANEL PRASAD Rep #: [id number] : 1960 Provider: Dr. Asmita Cespedes MD Age/Sex: 65/F Location: [facility] Status: Signed Intake Vital Signs 04/21/2513:25 05/26/2509:58 Height 5 ft 4 in 5 ft 4 in Weight: 175 lb BMI 30.0 BP 125/68 H Blood Pressure Location Rt brachial Position Sitting Respiration 17 Pulse 86 Pulse Source Monitor Pulse Oximetry (%) 97 Oxygen Delivery Method room air Intake Visit Reasons: Cholelithiasis Chief Complaint: cholelithiasis Is patient in pain?: No Allergies infliximab (From Remicade) Allergy (Severe, Verified 05/26/25 09:59) Anaphylaxis zinc Allergy (Severe, Verified 05/26/25 09:59) Throwing up budesonide Allergy (Mild, Verified 05/26/25 09:59) Upset Stomach alprazolam Allergy (Unknown, Verified 05/26/25 09:59) Other hydrocodone (From [place]) Allergy (Unknown, Verified 05/26/25 09:59) Other dicyclomine Allergy (Verified 05/26/25 09:59) Vomiting Lactobacillus rhamnosus GG (From [employer] Probiotics) Allergy (Verified 05/26/25 09:59) boils vancomycin Allergy (Verified 05/26/25 09:59) Other balsalazide Adverse Reaction (Severe, Verified 05/26/25 09:59) GI upset and Headache metronidazole (From Flagyl) Adverse Reaction (Severe, Verified 05/26/25 09:59) mental status changes codeine Adverse Reaction (Intermediate, Verified 05/26/25 09:59) Vomiting Penicillins Adverse Reaction (Mild, Verified 05/26/25 09:59) Itching phenazopyridine Adverse Reaction (Unknown, Verified 05/26/25 09:59) GI Upset azithromycin (From Zithromax Z-Del) Adverse Reaction (Verified 05/26/25 09:59) Vomiting mesalamine Adverse Reaction (Verified 05/26/25 09:59) Intolerance naproxen (From Naprosyn) Adverse Reaction (Verified 05/26/25 09:59) Other Sulfa (Sulfonamide Antibiotics) Adverse Reaction (Verified 05/26/25 09:59) Vomiting Medications ?Medication ?Instructions ?Recorded ?Confirmed ?Type valacyclovir 500 mg tablet 500 mg PO DAILY PRN Cold Sores 11/22/21 05/26/25 History (Valtrex) levothyroxine 25 mcg tablet 25 mcg PO DAILY 06/10/22 05/26/25 History acetaminophen 500 mg capsule 1,000 mg PO TID PRN pain 09/03/22 05/26/25 History diphenoxylate-atropine 2.5 1 tab PO BID PRN diarrhea #30 tabs 10/31/22 05/26/25 Rx mg-0.025 mg tablet (Lomotil) mecobalamin (vitamin B12) 10,000 mcg subcut QMONTH 03/15/24 05/26/25 History mcg solution for injection ustekinumab 90 mg/mL subcutaneous 90 mg subcut Q4W #1 mL 09/03/24 05/26/25 Rx syringe (Stelara) hydrocortisone acetate 25 mg 25 mg VT BID #42 ea 10/21/24 05/26/25 Rx rectal suppository cholecalciferol (vitamin D3) 1,250 1,250 mcg PO QWEEK #4 caps 03/31/25 05/26/25 Rx mcg (50,000 unit) capsule cyclobenzaprine 5 mg tablet 5 mg PO TID PRN muscle spasm #90 03/31/25 05/26/25 Rx tabs omeprazole 40 mg capsule,delayed 40 mg PO QDAY #30 caps 05/26/25 05/26/25 [facility] Medical History Multiple sclerosis History of steroid therapy Wears glasses Low iron Back pain WANG (generalized anxiety disorder) Elevated blood pressure reading in office without diagnosis of hypertension Anxiety and depression Clostridium difficile infection PONV (postoperative nausea and vomiting) Post-menopausal Anemia History of factor V Leiden mutation Dietary restriction Non-smoker Ulcerative colitis Preventative health care Hypothyroidism B12 deficiency Polycystic ovaries Irritable bowel syndrome Chronic bronchitis Carpal tunnel syndrome Back pain Seasonal allergies Internal bleeding hemorrhoids Factor 5 Leiden mutation, heterozygous Rectal bleed Hemorrhoids Surgical History History of rectal polypectomy History of esophagogastroduodenoscopy (EGD) History of carpal tunnel surgery of left wrist History of hemorrhoidectomy (~10/2018) History of appendectomy History of oophorectomy History of hysterectomy History of colonoscopy (~2016) Family History Grandmother CVA (cerebral vascular accident) Father Alcoholism Sister Alcoholism Asthma Factor V Leiden Mother Depression CVA (cerebral vascular accident) Other Anxiety Social History Smoking Status: Never smoker Electronic Cigarette Use: not used second hand exposure: No alcohol intake: never substance use type: does not use what type of physical activity do you participate in: walking frequency: daily duration: 15-30 minutes/day HPI HPI HPI: 65-year-old female presents due to abnormal HIDA scan showing nonvisualization of the gallbladder. Patient's previous ultrasound showed sludge filling the gallbladder, otherwise normal wall no Pericholecystic fluid, normal CBD. Patient states she been having right sided burning for about 6 months. Patient's last episode was on Friday states she had the burning in the right upper quadrant/flank/back and did vomit and felt better after that. Patient does complain of some bloating also reflux symptoms. Patient is currently taking the Pepcid Complete with 10 mg of famotidine which she states does help. Patient states that sheunable to eat [place] fries. ROS General General: No weight change, appetite, fatigue, colon cancer or breast cancer HEENT HEENT: No difficulty swallowing, eye injury, eye surgery, swollen glands or hoarseness Endo Endocrine: Yes thyroid disease; No diabetes mellitus, thyroid cancer, Hair loss, heat intolerance or cold intolerance Skin Skin: No rash or changing moles Musc Musculoskeletal: Yes back problems; No arthritis, rheumatoid arthritis, gout or joint pain Cardio Cardiovascular: No murmur, pacemaker, heart disease, atrial fibrillation, high blood pressure, heart attack, heart stent, palpitations, shortness of breath with exertion or chest pain Psych Psychiatric: Yes anxiety; No depression or hearing voices Resp Respiratory: No shortness of breath, No sleep apnea, No cough, No COPD, No asthma, No emphysema and No wheezing Gastro Gastrointestinal: No abdominal pain, Yes nausea or vomiting, Yes diarrhea, No constipation, No blood in stool, Yes acid reflux, Yes hemorrhoids, No ulcers, Yes gallbladder problem and No black,tarry stools Miguelito Hematologic: No blood thinners, No blood disorders, No bleeding, No anemia and No blood clots Neuro Neurologic: Yes numbness and No tingling Exam Const General: cooperative, healthy appearing, comfortable and no acute distress [facility] Head: normocephalic and atraumatic Neck Neck: supple Resp Effort & Inspection: normal respiratory effort Cardio Rate: regular rate GI Inspection: non-distended Palpation: soft, hernia (Umbilical abt a cm per CT-exam deferred as patient doesn't like umb touched) and nontender Skin General: no rashes or lesions noted Neuro General: CN's II-XI intact bilaterally Extrem General: normal to inspection Psych Mental Status: mental status grossly normal Attitude: cooperative Assessment and Plan Assessment and Plan (1) Abnormal biliary HIDA scan: Status: Acute (2) Umbilical hernia: Status: Acute (3) GERD (gastroesophageal reflux disease): Status: Acute Medications: New omeprazole swallow whole; do not crush, chew, dissolve, cut, break 40 mg PO QDAY 30 caps 3RF Plan Did personally review patient's ultrasound as well as HIDA scan and also discussed and showed imaging to patient. Will give patient a prescription for omeprazole to help control her GERD symptoms. Patient states her ulcerative colitis has been under control with medication. Reviewed the anatomy with the patient and discussed the procedure: laparoscopic/robotic cholecystectomy with possible cholangiograms, possible open. Review risks including but not limited to bleeding, infection, hernia, bile leak, retained gallstones requiring another procedure ERCP- Endoscopic Retrograde Cholangiopancreatography, injury to another organ (bile ducts, common bile duct, small bowel, etc.) and conversion to an open procedure. All questions were answered. Asmita Cespedes M.D. Pager: [phone] [facility] [address] [place] [address], [address] [place] [address] Office: [phone] Coding Level of Care Code Off vis,est,level 4 Diagnoses Abnormal biliary HIDA scan R94.8 Umbilical hernia K42.9 GERD (gastroesophageal reflux disease) K21.9 05/29/25 1700 <Electronically signed by Asmita Cespedes MD> Date [facility]
[2025-06-09] MEDS: INDOCYANINE GREEN 3.75 MG in Syringe 1.5 ML 999 MG IV (09:36)
[2025-06-09] MEDS: Lactated Ringers 1,000 ML 15 ML IV (09:36)
[2025-06-09] MEDS: Clindamycin 900 MG/50 ML BAG 75 MG IV (09:37)
--- NOTE | 2025-06-09 09:41 | PRE.ANES_ITS ---
ASA Classification* ASA Classification ASA Classification: 2 Assessment & Plan Anesthesia* Anesthesia Assessment Anesthesia Assessment: Discussed sedation and/or anesthesia options, risks, benefits, and alternatives with patient/parents/legal guardian/POA. Questions invited. The patient/parents/legal guardian/POA seems to understand and agrees to proceed with anesthesia plan. Reviewed the physical assessment, medical history, allergy history and patient home medications list prior to surgery/procedure/anesthetic and documented any changes. Performed airway and anesthesia risk assessments. Anesthesia Type Anesthesia Type: General Anesthesia Focused Assessment* Temperature: 97.5 F Pulse Rate: 89 Blood Pressure: 123/71 Respiratory Rate: 16 Pulse Ox: 95 Airway Assessment Mouth opens: >3 cm Mallampati Score: II Labs Anesthesia Preop lab: CBC WBC, (4.4-11.0) 5.7 K/mm3 03/28/25, 14:20 RBC, (4.2-5.4) 4.55 M/mm3 03/28/25, 14:20 Hgb, (12.0-15.0) 14.1 g/dL 03/28/25, 14:20 Hct, (37-47) 42.5 % 03/28/25, 14:20 Plt Count, (150-450) 245 K/mm3 03/28/25, 14:20 CHEMISTRY Potassium, (3.3-5.1) 4.3 mmol/L 04/25/25, 14:21 Sodium, (133-145) 141 mmol/L 04/25/25, 14:21 Magnesium, (1.6-2.6) 2.1 mg/dL 07/23/24, 16:30 BUN, (4-19) 11 mg/dL 04/25/25, 14:21 Creatinine, (0.70-1.20) 0.78 mg/dL 04/25/25, 14:21 Glucose, (70-99) 107 mg/dL H 04/25/25, 14:21 TSH, (0.300-4.200) 2.100 uIU/mL 05/23/25, 13:54 COAG PT, (11.7-14.9) 13.8 SECONDS 03/20/22, 05:55 Pre-Assessment Diagnosis/Proposed Procedure Planned Operative Procedure(s): ROBOTIC CHOLEY WITH ICG Anesthesia History Anesthesia History - liquid floor and wall applier: Anesthesia History - liquid floor and wall applier Hx Hospitalization No 06/03/25 13:49 Any Problems With Anesthesia Yes: PONV 06/03/25 13:49 Cholinesterase deficiency No 06/03/25 13:49 You/Your Family Experience No 06/03/25 13:49 fever (hyperthermia) with Relationship Recent Exposure to Contagious No 09/23/24 12:13 Disease Does patient have nerve No 06/03/25 13:49 stimulator Patient instructed to have device shut off --Does patient have Pacemaker No 06/09/25 09:24 or ICD? When Was Last Pacemaker Check QUESTION #4 FULL TEXT: You/Your Family Experience fever (hyperthermia) with Anesthesia Last Oral Intake Last Oral intake: Last Oral Intake NPO since 05:00 06/09/25 09:24 Meds taken in AM with sips of Yes 06/09/25 09:24 water? Meds patient instructed to see med list 06/09/25 09:24 take am of surgery PONV PONV - liquid floor and wall applier: PONV - liquid floor and wall applier Female Yes 06/03/25 13:49 HX of Motion Sickness Yes 06/03/25 13:49 HX of N/V After Surgery Yes 06/03/25 13:49 Non-Smoker Yes 06/03/25 13:49 Duration of Surgery greater No 06/03/25 13:49 than 60 minutes Number of Risk Factors 4 06/03/25 13:49 PONV Score Severe Risk 06/03/25 13:49 Height & Weight Height & Weight: Anesthesia: Height & Weight Height 5 ft 4 in 06/09/25 09:24 Weight: 78.5 kg 06/09/25 09:24 Body Mass Index (BMI) 29.7 06/09/25 09:24 Respiratory Assessment Respiratory Assessment - liquid floor and wall applier: Respiratory Tract Infection Hx - liquid floor and wall applier Hx Respiratory Tract Infection No 06/03/25 13:49 STOP Sleep Apnea STOP Sleep Apnea - liquid floor and wall applier: STOP Sleep Apnea - liquid floor and wall applier Hx Hypertension No 06/03/25 13:49 Hx Sleep Apnea No 06/03/25 13:49 CPAP No 09/23/24 12:13 BIPAP Do you snore loudly (louder No 06/03/25 13:49 than talking or can be heard Do you often feel tired/ No 06/03/25 13:49 fatigued/ sleepy during daytime? Has anyone observed you stop No 06/03/25 13:49 breathing during sleep? STOP Results Negative 06/03/25 13:49 QUESTION #5 FULL TEXT : Do you snore loudly (louder than talking or can be heard through closed doors)? Tobacco Use History Tobacco Use History - liquid floor and wall applier: Tobacco Use History - liquid floor and wall applier Tobacco Use Smoking Status Never smoker 06/03/25 13:49 Hx Tobacco Use No 06/03/25 13:49 Years Smoking Packs Smoked per Day Smoking Cessation Date was within the last 15 years Hx Smoking Cessation Date Hx Smoking Cessation Counseling Hematologic Medial History Hematologic Hx - liquid floor and wall applier: Hematologic Medical Hx - bulb brander Hx of Blood Transfusion No 06/03/25 13:49 Hx of Transfusion in last 3 No 06/03/25 13:49 Months Date of Last Transfusion (if within last 3 months) Ever experience any problems No 06/03/25 13:49 with transfusion(s)? 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 confused, unrespo /Reproduction History /Reproductive History - liquid floor and wall applier: /Reproductive Hx- liquid floor and wall applier Hx Now No 06/03/25 13:49 Gestational Age (in weeks): EDC: Hx Hx Para Hx Section SAB No 06/03/25 13:49 Does the father of the baby or his family experience fever w Father of the baby Malignant Hypertension history comment Active Medications Active Medications: Current Medications Generic Name Dose Route Start Last Admin Trade Name Freq PRN Reason Stop Dose Admin Clindamycin Phosphate 900 mg in 50 mls @ 75 mls/hr 06/09/25 10:30 06/09/25 09:37 Cleocin IV 06/09/25 11:09 75 mls/hr INTRAOP ONE Administration Gentamicin Sulfate 320 mg/ 58 mls @ 104 mls/hr 06/09/25 10:30 Dextrose IVPB 06/09/25 11:03 INTRAOP ONE Lactated Ringer's 1,000 mls @ 15 mls/hr 06/09/25 09:15 06/09/25 09:36 IV 15 mls/hr .Q48H CARL Administration PFSH Medical History History of steroid therapy Thyroid disease Colitis Restless legs Multiple sclerosis Wears glasses Low iron Back pain Elevated blood pressure reading in office without diagnosis of hypertension Clostridium difficile infection PONV (postoperative nausea and vomiting) Post-menopausal History of factor V Leiden mutation Dietary restriction Non-smoker B12 deficiency Polycystic ovaries Irritable bowel syndrome Hemorrhoids Home Medications ?Medication ?Instructions ?Recorded ?Last Taken ?Type valacyclovir 500 mg tablet 500 mg PO DAILY PRN Cold So res 11/22/21 Unknown History (Valtrex) levothyroxine 25 mcg tablet 25 mcg PO DAILY 06/10/22 1 08/09/24 05:00 History acetaminophen 500 mg capsule 1,000 mg PO TID PRN pain 09/03/22 06/09/25 05:00 History diphenoxylate-atropine 2.5 1 tab PO BID PRN diarrhea # 30 tabs 10/31/22 Unknown Rx mg-0.025 mg tablet (Lomotil) mecobalamin (vitamin B12) 10,000 10,000 mcg subcut QMO NTH 03/15/24 Unknown History mcg solution for injection ustekinumab 90 mg/mL subcutaneous 90 mg subcut Q4W #1 mL 09/03/24 06/01/25 Rx syringe (Stelara) cholecalciferol (vitamin D3) 1,250 1,250 mcg PO QWEEK #4 caps 03/31/25 Unknown Rx mcg (50,000 unit) capsule cyclobenzaprine 5 mg tablet 5 mg PO TID PRN muscle spa sm #90 03/31/25 Unknown Rx tabs omeprazole 40 mg capsule,delayed 40 mg PO QHS 06/03/25 Unknown History release Allergy/AdvReac Type Severity Reaction Status Date / Time infliximab (From Remicade) Allergy Severe Anaphylaxis Verified 06/09/25 09:21 zinc Allergy Severe Throwing Verified 06/09/25 09:21 up budesonide Allergy Mild Upset Verified 06/09/25 09:21 Stomach alprazolam Allergy Unknown Other Verified 06/09/25 09:21 hydrocodone (From [place]) Allergy Unknown Other Verified 06/09/25 09:21 dicyclomine Allergy Vomiting Verified 06/09/25 09:21 Lactobacillus rhamnosus GG Allergy boils Verified 06/09/25 09:21 (From [employer] Probiotics) vancomycin Allergy Other Verified 06/09/25 09:21 balsalazide AdvReac Severe GI upset Verified 06/09/25 09:21 and Headache metronidazole (From Flagyl) AdvReac Severe mental Verified 06/09/25 09:21 status changes codeine AdvReac Intermediate Vomiting Verified 06/09/25 09:21 Penicillins AdvReac Mild Itching Verified 06/09/25 09:21 phenazopyridine AdvReac Unknown GI Upset Verified 06/09/25 09:21 azithromycin (From Zithromax AdvReac Vomiting Verified 06/09/25 09:21 Z-Del) mesalamine AdvReac Intolerance Verified 06/09/25 09:21 naproxen (From Naprosyn) AdvReac Other Verified 06/09/25 09:21 Sulfa (Sulfonamide AdvReac Vomiting Verified 06/09/25 09:21 Antibiotics) Family History Grandmother CVA (cerebral vascular accident) Father Alcoholism Sister Alcoholism Asthma Factor V Leiden Mother Depression CVA (cerebral vascular accident) Other Anxiety Surgical History History of rectal polypectomy History of esophagogastroduodenoscopy (EGD) History of carpal tunnel surgery of left wrist History of hemorrhoidectomy (~10/2018) History of appendectomy History of oophorectomy History of hysterectomy History of colonoscopy (~2016) Social History Smoking Status: Never smoker Electronic Cigarette Use: not used second hand exposure: No alcohol intake: never substance use type: does not use what type of physical activity do you participate in: walking frequency: daily duration: 15-30 minutes/day Review of Systems (Anesthesia) ROS Narrative System reviewed and no additional complaints, except as documented.
--- NOTE | 2025-06-09 10:15 | GALL_PTH ---
PATIENT: CHANEL PRASAD [place] [facility] [id number] AGE/SX: 65/F ROOM: RE06/09/[address]: Dr. Asmita Cespedes MD : 1960 BED: DIS: 06/09/2025 SPEC #: [id number] RECD: 06/09/25 12:38 STATUS: HEBER REQ #: [id number] INA: 06/09/25 10:[address]: Asmita Cespedes DEPT: SURGICAL PATHOLOGY RECD BY: Werner Guardado ENTERED: 06/09/25 13:26 SP TYPE: HADLEY MENDIOLA DR: Lelia Desai MD Tissues: A - Gallbladder, NOS Procedures: Surgery Specimen Level III HEADER OPERATION: Robotic cholecystectomy with ICG, umbilical hernia repair PRE-OP DIAGNOSIS: Abnormal biliary HIDA scan, umbilical hernia, GERD TISSUE SUBMITTED: A- Gallbladder MICROSCOPIC DIAGNOSIS A. Gallbladder, cholecystectomy: * Cholecystolithiasis * Chronic cholecystitis * Portion of a benign serosal lymph node MICROSCOPIC DESCRIPTION Slides are reviewed. GROSS DESCRIPTION A. Received in formalin labeled with the patient's name and date of . Designated as gallbladder is a 8.4 x 3.3 x 3.0 cm pink-purple, distended and intact gallbladder with attached patent cystic duct (inked black, shaved). A possible lymph node is present. Opening reveals dark green-brown tenacious bile and multiple, bosselated, black biliary calculi, ranging <0.1 cm to 0.7 cm. The mucosa is pink-samuel to red granular and somewhat fibrotic with a maximum wall thickness of 0.1 cm. Cholesterolosis is not present. [place] Farmer sections are submitted in 1 cassette. AK 06/09/2025 CPT:61871
[2025-06-09] MEDS: Midazolam 2 MG/2 ML Syringe IV (10:20)
[2025-06-09] MEDS: fentaNYL 100 MCG/2 ML Ampul IV (10:20)
[2025-06-09] MEDS: Lidocaine 1% (5 ml sdv) 5 ML Vial 10 ML IV (10:20)
[2025-06-09] MEDS: Gentamicin 800 MG/20 ML Vial 320 MG IV (10:20)
[2025-06-09] MEDS: Lactated Ringers 1,000 ML 1000 ML IV (10:22)
--- NOTE | 2025-06-09 11:30 | OP.PCM_ITS ---
Operative Report (Standard) Operative Information Date of Procedure: 06/09/25 Pre-Operative Diagnosis: Abnormal HIDA scan Post-Operative Diagnosis: Same Surgery/Procedure Performed: Robotic cholecystectomy with ICG urinalysis technician: Yes [employer] Cook: Miri Ellison Tasks completed by chiropractic assistant: Opening & closing Type of Anesthesia: General/Supplemental RN Documented Start/Stop Times: Operation Date: 06/09/25 10:15 Case Time Into Pre-Op 06/09/25 09:05 Out of Pre-Op 06/09/25 10:12 Anesthesia Start 06/09/25 10:15 Into Room 06/09/25 10:15 Procedure Start 06/09/25 10:37 Procedure End 06/09/25 11:40 Anesthesia End 06/09/25 11:44 Out of Room 06/09/25 11:44 Into Recovery 06/09/25 11:47 Out of Recovery 06/09/25 13:00 Into Phase II Recovery 06/09/25 13:02 Procedure Start Time: 10:37 Procedure Stop Time: 11:40 Select all DRAINS/GRAFTS/IMPLANTS that apply: None Special Medications: Clindamycin 900 mg IV x 1 and gentamicin 320 mg IV x 1 Estimated Blood Loss: < 10 cc Specimen collected: Yes Description of specimen(s) removed: Gallbladder Description of surgery: Indications: this is a 65 year-old female who developed abdominal pain/nausea/vomiting and on workup was found to have abnormal HIDA with nonfilling of the gallbladder with a normal common bile duct. Robotic/laparoscopic cholecystectomy was elected. Description procedure: The patient was placed on operating table in supine position. A timeout was completed verifying correct patient, procedure, site, position and special equipment prior to beginning procedure. General Anesthesia was induced. The abdomen was prepped and draped in usual sterile fashion. An incision was made in the natural skin line below the umbilicus. Th e fascia was elevated and incised. The peritoneum was elevated and incised. Entry into the peritoneum was confirmed visually and no bowel was noted in the vicinity of the incision. De Guzman trocar was placed. The abdomen was insufflated with carbon dioxide to a pressure of 12-15 mmHg. Patient tolerated insufflation well. The laparoscope was then inserted and abdomen inspected. No injuries from initial trocar placement were noted. Additional trochars were then inserted in the following locations 8 mm trocar left upper quadrant and 2 more 8 mm trochars in right lower quadrant and left lower quadrant. The abdomen was inspected no abnormalities were found. The table is placed in reverse Trendelenburg position with the right side up. Robot was docked. The adhesions between the gallbladder and omentum were taken down carefully. The dome of the gallbladder was grasped with atraumatic grasper passed through the lateral port and retracted over the dome of the liver. Infundibulum was then grasped with atraumatic grasper through the midclavicular port and retracted to the right lower quadrant. This maneuver exposed Calot's triangle. The peritoneum overlying the gallbladder infundibulum was then incised and cystic duct and artery identified and circumferentially dissected. ICG was used to visualize the CBD as the gallbladder did not fill. The cystic duct and artery were then doubly clipped and divided close to the gallbladder. The gallbladder then dissected from its peritoneal attachments by electrocautery. The gallbladder fossa was irrigated with saline and hemost asis obtained. There is no evidence of bleeding from the gallbladder fossa or cystic artery leakage of bile from the cystic duct stump. Hemostasis was checked and the gallbladder was removed using the endoscopic retrieval bag through the umbilical port. Robot was undocked. the gallbladder is passed off table as specimen. Secondary trochars removed under direct vision. No bleeding was noted the trocar sites. The laparoscope was withdrawn and umbilical trocar removed. The abdomen was allowed to collapse. The fascia of the 12 mm trocar was closed with a [id number]-fi-somsf 0 Vicryl suture. The skin was closed with sutures of 4-0 Monocryl and Steri-Strips. The patient was extubated. The patient tolerated procedure well and was taken to the postanesthesia care unit in stable condition. Surgical Findings: See operative report Complications Complications: No
[2025-06-09] MEDS: Bupiv/Epi 0.25% 30 ML Vial (11:31)
--- NOTE | 2025-06-09 11:32 | DCINST_ITS ---
Discharge Instructions Diet Discharge Diet: Light diet - advance as tolerated Activity Discharge Activity: May Not Drive (while taking narcotic pain medications.) May shower in (days): 1 Lifting Restrictions: no lifting >20 lbs x 2 wks, no strenuous exercise for 4 wks Dressing / Incision Call your doctor if your incision/area has: Continuous Slow Oozing, Sudden Increased Bleeding, Increased Pain/ Swelling, Increased Redness, Foul Smelling Discharge and Swelling at the incision site Call your doctor if you observe: Fever of 101 or Higher Remove Dressing in: 2 days Cleanse incision/area with: Soap & Water Additional Dressing/Incision Instructions:: Steri-Strips will fall off in 7 to 10 days, if they do not fall off okay to remove after 10 days. Follow Up Care Please Follow Up With: Asmita Cespedes MD When: Call the office for a follow-up appointment 2 weeks; after 5 PM and on the weekends call [phone] with any concerns. Test Results: Test results from this visit will be discussed in further detail at your follow- up appointment, if applicable. Discharge Plan Admission Attending Provider: Asmita Cespedes Primary Care Provider: Lelia Desai Instructions Print Language: Kittitian Discharge Orders/Prescriptions Prescriptions: New oxycodone 5 mg capsule 5 mg PO Q6H PRN (Reason: pain) 3 Days Qty: 10 0RF Continued valacyclovir [Valtrex] 500 mg tablet 500 mg PO DAILY PRN (Reason: Cold Sores) levothyroxine 25 mcg tablet 25 mcg PO DAILY acetaminophen 500 mg capsule 1,000 mg PO TID PRN (Reason: pain) diphenoxylate-atropine [Lomotil] 2.5-0.025 mg tablet 1 tab PO BID PRN (Reason: diarrhea) Qty: 30 1RF mecobalamin (vitamin B12) 10,000 mcg recon soln 10,000 mcg subcut QMONTH cholecalciferol (vitamin D3) 1,250 mcg (50,000 unit) capsule 1,250 mcg PO QWEEK Qty: 4 7RF cyclobenzaprine 5 mg tablet 5 mg PO TID PRN (Reason: muscle spasm) Qty: 90 3RF omeprazole 40 mg capsule,delayed release(DR/EC) 40 mg PO QHS Rx Instructions: swallow whole; do not crush, chew, dissolve, cut, break Stelara 90 mg/mL syringe 90 mg subcut Q4W Qty: 1 11RF Referrals / Follow Up: Lelia Desai MD [Primary Care Provider, Family Practice] Disposition Disposition (needs filled in before D/C Order can be placed): Home, Self Care
--- NOTE | 2025-06-09 11:52 | PCM.POST.ANE ---
Anesthesia: Postop Eval I Current Vital Signs Temperature: 96.8 F Pulse Rate: 100 Blood Pressure: 140/80 Respiratory Rate: 18 Pulse Ox: 92 Oxygen Delivery Method: Nasal Cannula Oxygen Flow Rate (L/min): 4 Assessment Airway patent: Yes Spontaneous unlabored respirations: Yes Mental status: Awake nausea: No Vomiting: No Anesthesia Complication: No Fluid Hydration Crystalloid volume administer (ml): 1,000 Total IV fluid infused: 1,000 Progress Note Anesthesia document: Postop Eval 1 completed: Yes
--- NOTE | 2025-06-09 12:29 | POSTOPAN2_ITS ---
Anesthesia Postop Eval I Sum Postop Eval Completion status Anesthesia document: Postop Eval 1 completed: Yes Anesthesia Postop Eval I Summary Anesthesia Postop Eval I Summary: Anesthesia Postop Eval I: Assessment Summary Airway patent Yes 06/09/25 11:53 [email or web address] ASSISTANT.[email or web address] Spontaneous unlabored Yes 06/09/25 11:53 HOUSEKEEPING ASSISTANT.RBOE respirations Mental status Awake 06/09/25 11:53 HOUSEKEEPING ASSISTANT.SIRISHALI nausea No 06/09/25 11:53 HOUSEKEEPING ASSISTANT.SIRISHALI Vomiting No 06/09/25 11:53 HOUSEKEEPING ASSISTANT.ROBE Anesthesia Postop Eval I: Fluid Summary Crystalloid volume administer 1,000 06/09/25 11:53 HOUSEKEEPING ASSISTANT.JCLI (ml) Colloids volume administered ( ml) Blood Product volume administered (ml) Total IV fluid infused 1,000 06/09/25 11:53 HOUSEKEEPING ASSISTANT.ROBE Anesthesia Postop Eval I: Summary Notes Anesthesia Complication No 06/09/25 11:53 [email or web address] ASSISTANT.ROBE Anesthesia Complication Comment: Post-operative progress note Anesthesia: Postop Eval II Evaluation Mental status: Awake Pain Level: 0 nausea: No Vomiting: No
--- NOTE | 2025-06-09 12:29 | PCM.POSTANE2 ---
Anesthesia Postop Eval I Sum Postop Eval Completion status Anesthesia document: Postop Eval 1 completed: Yes Anesthesia Postop Eval I Summary Anesthesia Postop Eval I Summary: Anesthesia Postop Eval I: Assessment Summary Airway patent Yes 06/09/25 11:53 VIDEOTAPE SALES REPRESENTATIVE.JCLI Spontaneous unlabored Yes 06/09/25 11:53 VIDEOTAPE SALES REPRESENTATIVE.ROBE respirations Mental status Awake 06/09/25 11:53 VIDEOTAPE SALES REPRESENTATIVE.SIRISHALI nausea No 06/09/25 11:53 VIDEOTAPE SALES REPRESENTATIVE.SIRISHALI Vomiting No 06/09/25 11:53 VIDEOTAPE SALES REPRESENTATIVE.ROBE Anesthesia Postop Eval I: Fluid Summary Crystalloid volume administer 1,000 06/09/25 11:53 VIDEOTAPE SALES REPRESENTATIVE.JCLI (ml) Colloids volume administered ( ml) Blood Product volume administered (ml) Total IV fluid infused 1,000 06/09/25 11:53 VIDEOTAPE SALES REPRESENTATIVE.ROBE Anesthesia Postop Eval I: Summary Notes Anesthesia Complication No 06/09/25 11:53 VIDEOTAPE SALES REPRESENTATIVE.ROBE Anesthesia Complication Comment: Post-operative progress note Anesthesia: Postop Eval II Evaluation Mental status: Awake Pain Level: 0 nausea: No Vomiting: No
== END 2025-06-09 15:15 | disposition home or self-care (01) ==
LOC: SDC 08:55 → AC 08:57
PROVIDERS: PCP Family Medicine; Referring Provider Surgery; Visit Provider Surgery
PROC: 0FT44ZZ Resection of Gallbladder, Percutaneous Endoscopic Approach (ICD-10-PCS; CPT 47562; principal; 2025-06-09 09:55)
DX: K80.10 Calculus of gallbladder with chronic cholecystitis without obstruction (principal); K51.90 Ulcerative colitis, unspecified, without complications; G35.D Multiple sclerosis, unspecified; K42.9 Umbilical hernia without obstruction or gangrene; K21.9 Gastro-esophageal reflux disease without esophagitis; F41.1 Generalized anxiety disorder; F32.A Depression, unspecified; E53.8 Deficiency of other specified B group vitamins; E03.9 Hypothyroidism, unspecified; Z87.19 Personal history of other diseases of the digestive system; Z90.49 Acquired absence of other specified parts of digestive tract; Z79.890 Hormone replacement therapy; Z79.899 Other long term (current) drug therapy
CPT/HCPCS: 47563; S2900; 00790; 88304; 93005; J2405

== ENCOUNTER → 2025-06-27 | Outpatient (CLI) | payer MEDICARE, SELFPAY ==
[2025-06-27 14:42] LABS: Color, Urine Straw (Yellow); Glucose, Dipstick Normal (Normal); Ketone-Dipstick Negative (Negative); Leukocyte Esterase-Dipstick 25 /ul (Negative); Mucous, Urine 0 SEEN /hpf (<or=2+); Nitrite-Dipstick Negative (Negative); Occult Blood-Urine Negative /ul (Negative); Protein-Dipstick Negative (Negative); Red Blood Cells-Urine 0 SEEN /hpf (0-5); Specific Gravity, Urine 1.010 (1.002-1.030); Urine Bilirubin Dipstick Negative (Negative)
[2025-06-27 14:52] LABS: Squamous Epithelial Cells - UA 0-5 SEEN /hpf (5-10)
== END | disposition home or self-care (01) ==
LOC: PAVLAB 13:18
PROVIDERS: PCP Family Medicine; Referring Provider Physician Assistant; Visit Provider Physician Assistant
DX: R30.0 Dysuria (principal)
CPT/HCPCS: 81001; 87077; 87086; 87088